=== PATIENT | male | born 1940 | race Caucasian/White ===

== ENCOUNTER 2018-04-22 14:18 | Inpatient (IN) | payer MEDICARE ==
[2018-04-22 15:30] LABS: ABS Basophils 0 10^3/ul (0-0.2); ABS Eosinophils 0 10^3/ul (0-0.6); ABS Lymphocytes 0.6 10^3/ul (1.0-4.8); ABS Monocytes 0.8 10^3/ul (0-0.8); ABS Neutrophils 4.8 10^3/ul (1.5-7.7); ABS Nucleated RBC 0 10^3/ul; Eosinophil % 0 % (0-6); Hematocrit 38 % (42-52); Hemoglobin 13.4 g/dl (14.0-18.0); Mean Corpuscular HGB Conc 35 g/dl (31-36); Mean Corpuscular Hemoglobin 30 pg (27-31); Mean Corpuscular Volume 85 fL (80-94); Mean Platelet Volume 6.8 um3 (7.4-10.4); Nucleated Red Blood Cells % 0.1; Platelet Count 204 10^3/ul (150-450); Red Cell Distribution Width 14 % (10.5-15); White Blood Count 6.2 10^3/ul (3.5-10.8)
[2018-04-22] MEDS: Hydrocortisone INJ* 100 MG VIAL IV SCH ×2 (16:04→22:09)
[2018-04-22] MEDS: Fludrocortisone Acetate TAB* 0.1 MG PO SCH (16:04)
[2018-04-22] MEDS: HYDROcodone/ACETAMIN 5-325 MG* 1 TAB PO PRN ×2 (16:04→22:11)
[2018-04-22 16:27] LABS: EGFR Non-African American 103.9 (>60)
[2018-04-22] MEDS ORDERED: NS 0.9% 1000 ML* 1,000 ML IV SCH (16:55)
--- NOTE | 2018-04-22 19:35 | CONS ---
CONSULTATION REPORT: DATE OF CONSULT: 04/22/18 REQUESTING PHYSICIAN: Dr. Bolton. INDICATION: Request for EGD, weight loss, loss of appetite. NARRATIVE: Mr. Tong is a 77-year-old gentleman with a history of psoriasis , chronic fatigue, adrenal insufficiency, pleurodynia, chronic back pain, umbilical hernia, BPH, peripheral vascular disease, ankylosing spondylitis, polymyalgia rheumatica, osteoporosis, Raynaud's, glaucoma, who was sent in by his primary care physician, Dr. Bolton because of syncope. The patient states that he has passed out in the shower twice. The patient also states that she wanted him to have an endoscopy to evaluate his weight loss and his loss of appetite. He states for the past 3 weeks, he has had very little appetite. He is eating much less than he ever has in the past. He denies any pain before or after eating. He does have slight discomfort in the right upper quadrant, but had a recent abdominopelvic CT, which showed cholelithiasis, but no cholecystitis, but he says that he really does not have much pain. He denies any change in his bowel habits, except he does have loose stools, but not diarrhea. No constipation. No blood in the stool. He thinks he has lost approximately 10 pounds. He denies any new medications other than Humira approximately 3 weeks ago. He does take aspirin on a daily basis. PAST SURGICAL HISTORY: Include orthopedic surgeries. MEDICATIONS: Upon admission include: 1. Humira. 2. Trental. 3. Loratadine. 4. Prednisone 7 mg today. 5. Finasteride 5 mg a day. 6. Actonel. 7. Caltrate. 8. Baby aspirin. 9. Multivitamin. 10. Pantoprazole. ALLERGIES: CELEBREX, FOSAMAX, AZATHIOPRINE, LOTENSIN, CLINDAMYCIN, GLUCOSAMINE , HYDROCHLOROTHIAZIDE, METHOTREXATE. FAMILY HISTORY: No IBD, no colorectal cancer in the family. REVIEW OF SYSTEMS: Twelve systems were reviewed; other than that mentioned in the HPI were unremarkable. PHYSICAL EXAM: Temperature is 97.3, blood pressure is 143/71, pulse is 59, respiratory rate of 18, O2 sat is 98%. General: Chronically ill-appearing, elderly male, lying flat in bed, getting blood work. HEENT: Mucous membranes are moist without lesions, ulcers, or exudate. Neck is supple. Trachea is midline. Dentition intact. Heart: Regular rate and rhythm. Lungs: Clear to auscultation. Abdomen: Positive bowel sounds. Soft, nontender, nondistended. No hepatosplenomegaly, masses, rebound, or guarding. Skin is warm and dry. He does have typical psoriatic plaques all over his skin. DIAGNOSTIC STUDIES/LAB DATA: Labs at this point are pending; however, the patient tells me that he has had recent blood work with Dr. Bolton and was told that it was all normal. He does have a CT abdomen and pelvis from 04/15/18, which shows gallstones and a periumbilical hernia. ASSESSMENT AND PLAN: This is a 77-year-old gentleman with weight loss and no appetite, whose primary care doctor, Dr. Bolton, has requested endoscopy for further workup. I had a long discussion with the patient regarding this. We discussed potentially finding peptic ulcer disease, H. pylori, celiac disease, and/or malignancy. We will plan for his endoscopy tomorrow. He can have a diet tonight, but NPO after midnight for EGD tomorrow. [id number]/[facility] #: [id number] [facility] STATE HOSPITALFelipe
[2018-04-22] MEDS: Pentoxifylline CR TAB* 400 MG PO SCH (20:38)
[2018-04-22] MEDS: Tamsulosin CAP* 0.4 MG PO SCH (20:39)
[2018-04-22] MEDS: Latanoprost 0.005%* 2.5 ml BTL BOTH EYES SCH (20:39)
--- NOTE | 2018-04-23 01:06 | HP ---
HISTORY AND PHYSICAL: DATE OF ADMISSION: 04/22/18 HISTORY OF PRESENT ILLNESS: John Tong is a 77-year-old man admitted with weakness and syncopal episode. The patient has not been feeling well recently. He has developed a severe rash, diagnosed as psoriasis and was recently started on Humira. Since that time, he has gotten progressively weaker. He has had 2 syncopal episodes in the last few days, 1 on Sunday, 04/19, when he was sitting at the table. Today, he had a syncopal episode in the shower. He started to feel that he was going to faint, sat on the bench in the shower. When he stood up again, he thought he was feeling better, but then went down. It took his about a half an hour to get him out of the shower. They presented to my office and he is being admitted at this time. PAST MEDICAL HISTORY: Significant for the following medical problems: 1. History of hypertension, no longer present. 2. History of hyponatremia. 3. Glaucoma. 4. Adrenal insufficiency secondary to chronic steroid use. 5. 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 6. Benign prostatic hypertrophy for which he is on tamsulosin. 7. Peripheral vascular disease. 8. History of incomplete right bundle-branch block. 9. Recent CT of the chest showing right apical pleural calcification and plaque felt to be likely chronic in nature. 10. Periumbilical hernia. 11. Contracted gallbladder with gallstones, on recent CT. 12. Recent weight loss. 13. Osteoporosis. PAST SURGICAL HISTORY: Includes: 1. Tonsillectomy in childhood. 2. Left hydrocele repair. 3. Left lateral elbow release in 1979. 4. Left rotator cuff repair in 1999. 5. Bilateral cataract extractions in 2010. 6. Right rotator cuff repair in 2010. 7. He also underwent an interlaminar epidural steroid injection, L4-5 in 2013. CURRENT MEDICATIONS: 1. Clobetasol 0.05% topical cream. 2. Risedronate 35 mg weekly. 3. Tamsulosin 0.4 mg twice daily. 4. Prednisone 7 mg daily. 5. Finasteride 5 mg daily. 6. Pantoprazole 40 mg daily. 7. Albuterol 2 puffs as needed for shortness of breath. 8. Tylenol extended release 650 mg twice a day as needed for pain. 9. Pentoxifylline extended release 400 mg 3 times a day. 10. Humira 40 mg every other week. 11. Hydrocodone 5/325 p.r.n. pain. 12. Aspirin 81 mg daily. 13. Calcium 1 every day plus D. 14. Multivitamin 1 every day. 15. Travatan Z 0.004% 1 drop both eyes every evening. 16. Loratadine 10 mg every day. ALLERGIES: To SULFA, which caused a rash; CLINDAMYCIN caused a rash; CILOSTAZOL caused pounding heart beat; HYDROXYCHLOROQUINE caused diarrhea; METHOTREXATE caused mouth ulcers; AZATHIOPRINE caused nausea, vomiting, diarrhea ; LOTENSIN caused a cough; DYAZIDE caused a rash; GLUCOSAMINE SULFATE; FOSAMAX; CELEBREX. HABITS: Smoked from age 16 to 27, less than 1 pack a day. EtOH: Two beers a day in the past. FAMILY HISTORY: Mother of old age. Father had CABG and of a stroke. SOCIAL AND PERSONAL HISTORY: The patient is retired. He lives with his in their own home. He has adult children. REVIEW OF SYSTEMS: He has been feeling very weak. He has not been feeling well. He generally had been walking, but has not been walking recently. Skin: He has extensive rash diagnosed as psoriasis. This may have gotten a little bit better since he started Humira. HEENT: Negative. Nodes: Negative. Heme : Negative. Endocrine: See above. Respiratory: Negative. Cardiovascular: See above. GI: See above. He has had anorexia. : See above. Musculoskeletal: See above. Neuro: See above. PHYSICAL EXAMINATION GENERAL: He is an elderly white male, looking fatigued, in no acute distress. VITAL SIGNS: Blood pressure 140/70 sitting, 108/70 standing, pulse 64, respirations 16, temperature 97.3, O2 sat 98%. HEENT: Head: Atraumatic, normocephalic. Full EOMs. Mouth and pharynx: Unremarkable. NECK: Supple. Without thyromegaly. Nodes without adenopathy. CHEST: Clear bilaterally to auscultation. HEART: Normal S1, S2. No murmurs, gallops, or rubs. ABDOMEN: Soft, nontender. He has an umbilical hernia. EXTREMITIES: Show no clubbing, cyanosis, or edema. NEUROLOGIC: Without gross focal or lateralizing signs. SKIN: Covered with erythematous patches with scaling over his trunk and limbs. LABORATORY DATA: Pending. IMPRESSION AND PLAN: The patient has recent fatigue, weakness, anorexia, nausea without vomiting, weight loss. This may or may not be related to Humira. I doubt that it is. He has had syncopal episodes, which are likely related to orthostatic hypotension. This may be the stress of his rash and treatment that is causing him to have adrenal insufficiency and that may be the reason he is so weak. I am going to admit him, give him stress doses of steroids, and fludrocortisone. EGD will be ordered. I am going to review his films with Radiology to see whether the pleural thickening could possibly be cancer, although I doubt it is. He may be a candidate for PET scan. He is a full code at this point. [id number]/[facility] #: [id number] MTDD
[2018-04-23] MEDS: Hydrocortisone INJ* 100 MG VIAL IV SCH ×4 (03:56→21:24)
[2018-04-23] MEDS: HYDROcodone/ACETAMIN 5-325 MG* 1 TAB PO PRN ×2 (03:56→21:23)
[2018-04-23] MEDS: Pentoxifylline CR TAB* 400 MG PO SCH ×3 (11:34→21:24)
[2018-04-23] MEDS ORDERED: Midazolam* 1 MG/ML 10 ML VIAL (10 MG) ONE (14:42)
[2018-04-23] MEDS ORDERED: fentaNYL* 50 MCG/ML 2 ML VIAL (100 MCG VIAL) ONE (14:43)
[2018-04-23] MEDS: Omeprazole CAP* 20 MG PO SCH (16:19)
[2018-04-23] MEDS: Finasteride TAB* 5 MG PO SCH (16:19)
[2018-04-23] MEDS: Tamsulosin CAP* 0.4 MG PO SCH ×2 (16:19→21:23)
[2018-04-23] MEDS: Cetirizine* 10 MG TAB PO SCH (16:19)
[2018-04-23] MEDS: Fludrocortisone Acetate TAB* 0.1 MG PO SCH (16:20)
[2018-04-23] MEDS: Aspirin 81 mg CHEW TAB* 81 MG TAB.CHEW PO SCH (16:20)
[2018-04-23] MEDS ORDERED: Fluconazole 100 MG TAB* TAB PO ONE (19:00)
[2018-04-23] MEDS: Latanoprost 0.005%* 2.5 ml BTL BOTH EYES SCH (21:22)
[2018-04-24] MEDS: Hydrocortisone INJ* 100 MG VIAL IV SCH ×4 (03:43→20:30)
[2018-04-24 06:23] LABS: Hematocrit 34 % (42-52); Hemoglobin 12.2 g/dl (14.0-18.0); Mean Corpuscular HGB Conc 36 g/dl (31-36); Mean Corpuscular Hemoglobin 30 pg (27-31); Mean Corpuscular Volume 85 fL (80-94); Mean Platelet Volume 6.9 um3 (7.4-10.4); Platelet Count 192 10^3/ul (150-450); Red Blood Count 4.05 10^6/ul (4.00-5.40); Red Cell Distribution Width 14 % (10.5-15); White Blood Count 8.7 10^3/ul (3.5-10.8)
[2018-04-24 06:46] LABS: EGFR Non-African American 135.5 (>60)
[2018-04-24] MEDS: Omeprazole CAP* 20 MG PO SCH (07:19)
[2018-04-24] MEDS: Fluconazole 100 MG TAB* TAB PO SCH (08:40)
[2018-04-24] MEDS: Finasteride TAB* 5 MG PO SCH (08:40)
[2018-04-24] MEDS: Tamsulosin CAP* 0.4 MG PO SCH ×2 (08:40→20:28)
[2018-04-24] MEDS: Aspirin 81 mg CHEW TAB* 81 MG TAB.CHEW PO SCH (08:40)
[2018-04-24] MEDS: Pentoxifylline CR TAB* 400 MG PO SCH ×3 (08:40→20:29)
[2018-04-24] MEDS: Fludrocortisone Acetate TAB* 0.1 MG PO SCH (08:41)
[2018-04-24] MEDS: HYDROcodone/ACETAMIN 5-325 MG* 1 TAB PO PRN ×2 (08:41→20:29)
[2018-04-24] MEDS: Cetirizine* 10 MG TAB PO SCH (08:41)
--- NOTE | 2018-04-24 12:12 | PRO ---
DATE: 04/23/18 - ROOM #[id number] REFERRING PHYSICIAN: Dr. May Castillo.* PROCEDURE: Upper gastrointestinal endoscopy and balloon dilation, EG junction stricture at 40 cm, CLOtest gastric body, gastric body biopsies, biopsy smooth nodule proximal second portion of duodenum. INDICATION: This 77-year-old male states he has had a poor appetite for 3 weeks. He complains of early satiety. There has not been any vomiting or fever. His bowels have been a little loose, but he denies seeing any blood. He has a history of skin rash that began in the spring and carries a diagnosis of psoriasis. He was on Humira beginning 3 weeks ago. He was admitted after fainting in the shower yesterday morning. He has a long-standing history of rheumatoid arthritis with spondylitis and had been on methotrexate in the past. He has never had this test before. ENDOSCOPIST: Dr. Baird. MEDICATIONS: Midazolam 8, fentanyl 100. FINDINGS: He is an older man, in no overt distress, although speaks softly and appears depressed. His affect appears flat. EGD: Larynx - some minimal Monilia is seen. Larynx is symmetric. Esophagus - easily entered and the mucosa is normal at the cricopharyngeus and upper esophagus and then some mild Monilia begins at about 27 cm and becomes more prevalent and is moderate and then moderately severe in the distal esophagus from about 38 to 40. The scope could not pass; there appeared to be a stenosis. A [id number] dilator was then inserted and inflated to 1 atmosphere and then 2 atmospheres corresponding to 13 and then 14 mm. The stricture was then opened up with some minor splits. The scope passed easily. Given the heavy Monilia there, further dilation seemed unwarranted. Stomach - there was a moderate hiatal hernia. The gastric mucosa appeared uninflamed. There were no erosions seen. A CLOtest was taken. Two biopsies were taken from the gastric fundus to rule out atrophy. The gastric antrum appeared normal. There were no polyps or scars. Duodenum - the pylorus and bulb appeared normal. The second and third portion appeared normal initially. During slow withdrawal, a nodule was seen in the proximal second portion. It was smooth with central umbilication. It was uninflamed with no exudates or vascular coloration. Two biopsies were taken. IMPRESSION: 1. Moderate hiatal hernia. 2. Gastroesophageal reflux - he has been on pantoprazole for over a year. It appears this should be continued as the stricture is probably a combination of peptic and Monilial inflammation and edema. 3. Esophageal stricture - dilated to 14 mm and further dilation can be contemplated once the Monilia is treated. 4. Esophageal candidiasis - would probably give Diflucan for a week and then periodic suppressive regimen of either Diflucan or clotrimazole troches. It seems likely he has ongoing risk factors for Monilia; we will continue unabated namely pantoprazole, prednisone, and some other immunomodulator biologic. 5. Duodenal nodule - appears benign, significance is uncertain and biopsy pending. 6. Anorexia - certainly a Monilia with underlying gastroesophageal reflux disease could explain this, though psychological component probably plays an additional roll. 7. Atypical psoriasis - further assessment pending. [id number]/[facility] #: [id number] MTDD
[2018-04-24] MEDS: Latanoprost 0.005%* 2.5 ml BTL BOTH EYES SCH (20:28)
[2018-04-25] MEDS: Hydrocortisone INJ* 100 MG VIAL IV SCH ×2 (03:56→09:33)
[2018-04-25] MEDS: Tamsulosin CAP* 0.4 MG PO SCH (08:21)
[2018-04-25] MEDS: Aspirin 81 mg CHEW TAB* 81 MG TAB.CHEW PO SCH (08:22)
[2018-04-25] MEDS: Omeprazole CAP* 20 MG PO SCH (08:22)
[2018-04-25] MEDS: Fludrocortisone Acetate TAB* 0.1 MG PO SCH (08:22)
[2018-04-25] MEDS: Cetirizine* 10 MG TAB PO SCH (08:23)
[2018-04-25] MEDS: Fluconazole 100 MG TAB* TAB PO SCH (08:24)
[2018-04-25] MEDS: Finasteride TAB* 5 MG PO SCH (08:24)
[2018-04-25] MEDS: Pentoxifylline CR TAB* 400 MG PO SCH (08:24)
[2018-04-25 11:29] VITALS: BP 127/81
--- NOTE | 2018-04-25 21:56 | DS ---
DISCHARGE SUMMARY: DATE OF ADMISSION: 04/22/18 DATE OF DISCHARGE: 04/25/18 DISCHARGE DIAGNOSES: 1. Syncope due to orthostatic hypotension. 2. Adrenal insufficiency. 3. Rash due to tinea, possibly underlying psoriasis. 4. Benign prostatic hypertrophy. 5. Osteoporosis. 6. Peripheral vascular disease. 7. History of hypertension, no longer active diagnosis. 8. Yesica esophagitis. 9. Esophageal stricture. 10. Gastroesophageal reflux. 11. Hyponatremia. 12. Glaucoma. 13. History of polymyalgia rheumatica versus seronegative spondyloarthropathy. 14. History of incomplete right bundle-branch block. 15. Apical pleural calcification and plaque, chronic. 16. Periumbilical hernia. 17. Contracted gallbladder with gallstones. 18. Recent weight loss. 19. Anemia of chronic disease. HISTORY: John Tong is a 77-year-old man admitted with weakness and syncopal episode. Please see the dictated admission note for details of the present illness, past medical history, family history, social and personal history, review of systems, and physical examination. LABORATORY: CBC: WBC 6.2, H and H 13.4/38, MCV 85, PLT 204,000. CBC on : WBC 8.7, H and H 12.2/34, MCV 85, PLT 192. Chemistry: Sodium 127, potassium 3.8, chloride 97, CO2 21, BUN and creatinine 13/0.73, glucose 108. Rest of the comprehensive metabolic panel was normal. TSH normal at 0.91. 25- hydroxyvitamin D level 50.9. Magnesium slightly low at 1.8. Phosphorus normal at 3. Serum osmolality 286. Chemistries on 04/24/18: (BMP) sodium 130, potassium 3.5, chloride 104, CO2 21, BUN and creatinine 12/0.58, glucose 143, calcium 7.8. Urine sodium 36. Urine osmolality 520. Urine culture no growth. CLOtest negative. CONSULTATION NOTE: Gastroenterology, Dr. Geiger, he felt that the patient had weight loss, anorexia. Recommended EGD. Procedure report: EGD, Dr. Baird, 04/23/18, found moderate hiatus hernia, gastroesophageal reflux, recommended continuing pantoprazole, esophageal stricture dilated to 14 mm, esophageal candidiasis, duodenal nodule. Stomach biopsy was negative. Small bowel biopsy showed small bowel mucosa with prominent Stephanie's gland with mild blunting of villi and overlying mucosa with vascular ectasia, nonspecific findings from a solitary nodule. Skin biopsy, right upper arm, shows subacute spongiotic dermatitis with occasional yeast clusters of stratum corneum. No psoriasiform findings noted. HOSPITAL COURSE: The patient was admitted, placed on telemetry, orthostatic blood pressures checked. He was given a stress doses of steroids, 50 mg of hydrocortisone every 6 hours. Workup was done as noted above. He was clinically improved. His blood pressures came up. He was noted initially to have orthostatic changes. No arrhythmias were noted. He was started on fluconazole for the Yesica esophagitis, which will also treat the tinea. He felt much better at the time of dischsarge. He was eating well. He was no longer dizzy. He is being discharged on 04/25/18. At the time of discharge his medications are as follows: 1. Pentoxifylline 400 mg 3 times a day. 2. Tamsulosin 0.4 mg twice a day. 3. Fluconazole 200 mg once a day for 3 weeks and 200 mg once a week for 3 weeks. 4. Prednisone 5 mg 3 times a day for now. 5. Risedronate 75 mg once a week. 6. Loratadine 10 mg once a day or as needed for allergies. 7. Travatan Z 0.004% eye drops 1 drop each eye each evening. 8. Aspirin 81 mg daily. 9. Acetaminophen 650 two twice a day as needed for pain. 10. Finasteride 5 mg once a day. 11. Pantoprazole 40 mg once a day. He was told not to take Humira for now. He is to follow up in my office in about 5 to 7 days. Pending at the time of discharge are an IgA level, quantitative immunoglobulins, and a tTG antibody. [id number]/[facility] #: [id number] [facility]
== END 2018-04-25 12:15 | disposition home or self-care (01) | DRG 312 ==
LOC: MEDTELE 14:21 → OBSVTOIN 04-23 09:54
PROVIDERS: ADMIT Internal Medicine Geriatric Medicine; ATTEND Internal Medicine Geriatric Medicine
PROC: 0D748ZZ Dilation of Esophagogastric Junction, Via Natural or Artificial Opening Endoscopic (ICD-10-PCS; principal; 2018-04-23)
PROC: 0DB68ZX Excision of Stomach, Via Natural or Artificial Opening Endoscopic, Diagnostic (ICD-10-PCS; 2018-04-23)
PROC: 0DB98ZX Excision of Duodenum, Via Natural or Artificial Opening Endoscopic, Diagnostic (ICD-10-PCS; 2018-04-23)
PROC: 0HBBXZX Excision of Right Upper Arm Skin, External Approach, Diagnostic (ICD-10-PCS; 2018-04-23)
DX: I95.1 Orthostatic hypotension (principal); E27.3 Drug-induced adrenocortical insufficiency; B37.81 Candidal esophagitis; E87.1 Hypo-osmolality and hyponatremia; J94.8 Other specified pleural conditions; L40.9 Psoriasis, unspecified; I10 Essential (primary) hypertension; H40.9 Unspecified glaucoma; T38.0X5A Adverse effect of glucocorticoids and synthetic analogues, initial encounter; N40.0 Benign prostatic hyperplasia without lower urinary tract symptoms; I73.9 Peripheral vascular disease, unspecified; I45.10 Unspecified right bundle-branch block; K80.20 Calculus of gallbladder without cholecystitis without obstruction; M81.0 Age-related osteoporosis without current pathological fracture; R63.4 Abnormal weight loss; G89.29 Other chronic pain; M54.9 Dorsalgia, unspecified; M45.9 Ankylosing spondylitis of unspecified sites in spine; I73.00 Raynaud's syndrome without gangrene; K22.2 Esophageal obstruction; M06.9 Rheumatoid arthritis, unspecified; M35.3 Polymyalgia rheumatica; K44.9 Diaphragmatic hernia without obstruction or gangrene; K21.9 Gastro-esophageal reflux disease without esophagitis; R63.0 Anorexia; L40.8 Other psoriasis; K31.89 Other diseases of stomach and duodenum; L30.8 Other specified dermatitis; B35.9 Dermatophytosis, unspecified; K42.9 Umbilical hernia without obstruction or gangrene; D63.8 Anemia in other chronic diseases classified elsewhere; B37.2 Candidiasis of skin and nail; Z79.82 Long term (current) use of aspirin; Z79.52 Long term (current) use of systemic steroids; Z68.22 Body mass index [BMI] 22.0-22.9, adult; Z98.42 Cataract extraction status, left eye; Z98.41 Cataract extraction status, right eye; Z88.1 Allergy status to other antibiotic agents; Z88.2 Allergy status to sulfonamides; Z88.8 Allergy status to other drugs, medicaments and biological substances; Z82.3 Family history of stroke; Z82.49 Family history of ischemic heart disease and other diseases of the circulatory system
CPT/HCPCS: 11100; 36415; 80048; 80053; 82306; 82784; 82943; 83516; 83735; 83930; 83935; 84100; 84300; 84443; 85025; 85027; 87077; 87086; 87101; 88305; 99156; 99157; A9270-GY; G0378; J1720; J2250; J3010

== ENCOUNTER 2018-05-19 09:13 | Emergency (ER) | payer MEDICARE ==
[2018-05-19 09:27] VITALS: BP 132/75
--- NOTE | 2018-05-19 10:05 | UC ---
Shoulder Pain HPI - HPI Summary HPI Summary: 77 y/o male presents to the urgent care accompany by c/o RT shoulder pain s /p slipping and falling against a wall and injuring his left shoulder at a store on 05/13/2018. Pt reports he was using his walker. He felt mild pain after injury, but the next day he was very sore and uneble to raise his arm and now he has a big bruise in the RT side of his chest. Pain is 8/10 sharp w/ raising his arm. Pt has taking Tylenol PO to alleviates symptoms. Pt states he was hospitalized about 2 weeks ago by a esophageal fungal infection which he is now better. Pt w/ Hx of Osteoporosis taking Actonel PO and also take an ASA. Pt denies numbness or tingling sensation over the RT arm, chest pain, SOB, abdominal pain, N/V/D. - History of Current Complaint Chief Complaint: UCUpperExtremity Stated Complaint: SHOULDER INJURY Time Seen by Provider: 05/19/18 09:59 Hx Obtained From: Patient Onset/Duration: Lasting Weeks - 1 week, Still Present, Worse Since - 2 days ago Timing: Constant Severity Initially: Mild Severity Currently: Moderate Location Of Pain: Is Discrete @ - RT shoulder Pain Intensity: 8 - w/ movement and 3/10 at rest Pain Scale Used: 0-10 Numeric Character: Sharp Aggravating Factor(s): Movement, Lifting, Abduction Alleviating Factor(s): Rest, Ice, OTC Meds Associated Signs And Symptoms: Positive: Bruising - RT side of chest. Negative : Swelling, Redness, Fever, Weakness, Numbness/Tingling Related History: Dominant Hand Right - Risk Factors Non-Orthopedic Risk Factor: Negative DVT Risk Factors: Negative Septic Arthritis Risk Factor: Negative - Allergies/Home Medications Allergies/Adverse Reactions: Allergies Allergy/AdvReac Type Severity Reaction Status Date / Time alendronate sodium Allergy Unknown Verified 05/19/18 09:28 Reaction Details azathioprine Allergy Unknown Verified 05/19/18 09:28 Reaction Details benazepril [From Lotensin] Allergy Unknown Verified 05/19/18 09:28 Reaction Details celecoxib Allergy Hives Verified 05/19/18 09:28 cilostazol Allergy Unknown Verified 05/19/18 09:28 Reaction Details clindamycin Allergy Unknown Verified 05/19/18 09:28 Reaction Details glucosamine Allergy Unknown Verified 05/19/18 09:28 Reaction Details hydrochlorothiazide Allergy Unknown Verified 05/19/18 09:28 [From Dyazide] Reaction Details hydroxychloroquine Allergy Unknown Verified 05/19/18 09:28 Reaction Details methotrexate Allergy See Comment Verified 05/19/18 09:28 triamterene [From Dyazide] Allergy Unknown Verified 05/19/18 09:28 Reaction Details Home Medications: Home Medications Fluconazole [Fluconazole 200 mg tab] 1 dose PO WEEKLY 05/19/18 [History Confirmed 05/19/18] predniSONE TAB* [Deltasone 10 MG TAB*] 14 mg PO DAILY 05/19/18 [History Confirmed 05/19/18] PMH/Surg Hx/FS Hx/Imm Hx Previously Healthy: Yes Other Endocrine History: Osteoporosis Cardiovascular History: Hypertension GI/ History: Gastroesophageal Reflux Other GI/ History: esophageal candidiasis Other Psychological History: BPH - Surgical History Surgical History: Yes Surgery Procedure, Year, and Place: rotator cuff repair bilat; varicele 20YRS + ; CATARACTS BILAT. Torn ligament in left elbow- over 20yrs ago - Family History Known Family History: Positive: Cardiac Disease - Social History Occupation: Retired Lives: With Family Alcohol Use: None Alcohol Amount: 1-2 day,now has cut back. Substance Use Type: None Smoking Status (MU): Former Smoker Type: Cigarettes Amount Used/How Often: 1-2 packs in week Have You Smoked in the Last Year: No - Immunization History Most Recent Influenza Vaccination: last season Most Recent Tetanus Shot: 04/03/16 Most Recent Pneumonia Vaccination: has had Review of Systems Constitutional: Negative Skin: Bruising - RT side of chest Eyes: Negative ENT: Negative Respiratory: Negative Cardiovascular: Negative Gastrointestinal: Negative Genitourinary: Negative Motor: Negative Neurovascular: Negative Musculoskeletal: Decreased ROM - RT shoulder, Other: - RT shoulder pain Neurological: Negative Psychological: Negative Is Patient Immunocompromised?: No All Other Systems Reviewed And Are Negative: Yes Physical Exam - Summary Physical Exam Summary: Vital Signs Reviewed: Yes GENERAL: Well-Appearing, No Pain Distress, Well-Nourished old male w/o any apparent pain distress Eyes: Positive: Conjunctiva Clear - PERRL,EOMI ENT: Positive: Normal ENT inspection, Hearing grossly normal, Pharyngeal erythema - mild, Nasal drainage - clear, Uvula midline Neck: Positive: Supple, Nontender, No Lymphadenopathy Respiratory: Positive: Chest non-tender, Lungs clear, Normal breath sounds, No respiratory distress Cardiovascular: Positive: RRR, No Murmur, Pulses Normal, Brisk Capillary Refill Abdomen Description: Positive: Nontender, No Organomegaly, Soft. Negative: CVA Tenderness (R), CVA Tenderness (L) Bowel Sounds: Positive: Present Musculoskeletal: RT shoulder: The R shoulder is without obvious asymmetry or deformity when compared to the L shoulder. R shoulder w/o ecchymosis and bruising, no crepitus. No bony deformity or prominence of humeral head. No erythema, warmth. No Point Tenderness to palpation over the clavicle, or scapula. positive tenderness over Acromioclavicular joint and humeral head with mild swelling, NT to palpation of the bicipital groove . NT to palpation of the muscles of the sternocleidomastoid, pectoralis, biceps/triceps, deltoid, trapezius, . Limited ROM due to pain especially in adduction and abduction.on both passive and active, internal/external rotation, flexion/extension. "empty can and drop arm test unable to perform due to pain. No axillary tenderness or lymphadenopathy. Normal sensation over the deltoid and fingers. Distal motor and neurovascular status is intact. Neurological Exam: Normal Psychological Exam: Normal Skin Exam: RT side of chest w/ moderate bruise and ecchymosis between RT side Ribs #3-7 about 6.0cm x 8.0cm in size. Mild tenderness to palpation, no swelling observed. Triage Information Reviewed: Yes Vital Signs: Initial Vital Signs Temp 99.0 F 05/19/18 09:24 Pulse 67 05/19/18 09:24 Resp 18 05/19/18 09:24 BP 132/75 05/19/18 09:24 Pulse Ox 98 05/19/18 09:24 Shoulder Course/Dx - Course Course Of Treatment: 77 y/o male presents to the urgent care accompany by c /o RT shoulder pain s/p slipping and falling againts a wall and injuring his left shoulder at a store on 05/13/2018. Pt reports he was using his walker. He felt mild pain after injury, but the next day he was very sore and uneble to raise his arm and now he has a big bruise in the RT side of his chest. Pain is 8 /10 sharp w/ raising his arm. Pt has taking Tylenol PO to alleviates symptoms. Pt states he was hospitalized about 2 weeks ago by a esophageal fungal infection which he is now better. Pt w/ Hx of Osteoporosis taking Actonel PO and also take an ASA. Pt denies numbness or tingling sensation over the RT arm, chest pain, SOB, abdominal pain, N/V/D.Hx obtained. Pt w/ a severe moderate Hematoma in the RT side of chest. RT shoulder and RT side Ribs and chest X-ray ordered: Impression:RT shoulder osteopenis, osteoarthritis observed, but no fracture or dislocation. Also no rib fracture obserd. Only a Rt apical Pleural calcification observed and as per radiologits it is still the same as compared w / CT done in 2016. Images results discussed w/ Pt. He is awared of the pleural calcification which is being monitored by his PCP. Pt's Rx Tylenol PO for pain. Shoulder immobilized with a shoulder sling for 3-4 days. Advised to f/u with PT referral for further evaluation and Orthopedic DR Lewis referral if not improvement of symptoms. D/C instructions explained. Pt and understood and agreed w/ plan of care and left clinic hemodynamically stable. - Differential Dx/Diagnosis Differential Diagnosis/HQI/PQRI: AC Separation, Contusion, Fracture (Closed), Sprain, Strain, Tendonitis Provider Diagnoses: 1- RT shoulder sprain s/p fall. 2- RT shoulder oateoarthritis. 3- Chest contusion w/ hematoma Discharge - Sign-Out/Discharge Documenting (check all that apply): Patient Departure - D/C home All imaging exams completed and their final reports reviewed: Yes - Discharge Plan Condition: Stable Disposition: HOME Prescriptions: Acetaminophen TAB* [Tylenol TAB*] 650 mg PO Q6H PRN #30 tab PRN Reason: Pain Patient Education Materials: Osteoarthritis (ED), Shoulder Sprain (ED), Hematoma (ED) Referrals: May Castillo MD [Primary Care Provider] - 3 Days Eladia Lewis MD [Medical Doctor] - 3 Days Additional Instructions: 1-Please take medications as directed to alleviate pain and swelling. 2-Please apply ice, keep your shoulder immobilized with the shoulder sling for 3 -4 days and then resume movement slowly 3- Please f/u with Orthopedic Dr Lewis 3 days for further evaluation and treatment. 4- Please F/I Physical therapy referral for further evaluation and treatment. - Billing Disposition and Condition Condition: STABLE Disposition: Home
[2018-05-19] MEDS ORDERED: Acetaminophen TAB* 325 MG PO ONE (10:20)
--- NOTE | 2018-05-19 11:06 | RAD ---
HISTORY: RT shoulder pain s/p injury COMPARISONS: None VIEWS: 5, Frontal internal rotation, external rotation, outlet, and axillary views of the right right shoulder FINDINGS: BONE DENSITY: There is diffuse osteopenia. BONES: There is no displaced fracture. JOINTS: There is moderate osteoarthritis of the a.c. and glenohumeral joints. ALIGNMENT: There is no dislocation. SOFT TISSUES: Unremarkable. OTHER FINDINGS: There is right apical pleural calcification. IMPRESSION: 1. OSTEOPENIA. 2. OSTEOARTHRITIS. 3. NO ACUTE OSSEOUS INJURY. IF SYMPTOMS PERSIST, RECOMMEND REPEAT IMAGING.
--- NOTE | 2018-05-19 11:08 | RAD ---
HISTORY: RT side upper ribs w/ hematoma s/p fall COMPARISONS: CT dated April 15, 2013 VIEWS: 7, Frontal view of the chest with frontal and oblique views of the right hemithorax. FINDINGS: There is no displaced rib fracture or pneumothorax. There is right greater than left biapical pleural thickening and calcification. This is stable from the previous CT examination. IMPRESSION: NO DISPLACED RIB FRACTURE OR PNEUMOTHORAX
== END 2018-05-19 11:35 | disposition home or self-care (01) ==
LOC: UCEAST 09:13
DX: S43.401A Unspecified sprain of right shoulder joint, initial encounter (principal); W22.01XA Walked into wall, initial encounter; Y92.89 Other specified places as the place of occurrence of the external cause; M19.011 Primary osteoarthritis, right shoulder; S20.211A Contusion of right front wall of thorax, initial encounter
CPT/HCPCS: 99213; A9270-GY; G0463

== ENCOUNTER 2018-08-10 14:08 | Emergency (ER) | payer MEDICARE ==
--- OUTSIDE RECORDS SUMMARY | 2018-08-10 14:15 | XMS REPORT | Continuity of Care Document ---
:1940 External Reference #:[id number] Author Name Alexandre Contreras M.D. Address [address] [facility] [place] [address] Care Team Providers Name Role Phone May Castillo M.D. Primary Care Physician Unavailable Payers Type Date Identification Numbers Payment Provider Subscriber Effective: Policy Number: [id number] Medicare - NGS John Vazquezbinta 2004 PayID: [id number] [address] [place] [address] Policy Number: [id number] [facility] John Tong PayID: [id number] [address] [place] [address] Advance Directives Description No Information Available Problems Date Description Provider Status Onset: Allergic rhinitis Active Onset: Essential hypertension Active Onset: Ankylosing spondylitis Active Onset: Rheumatoid arthritis Active Onset: Raynaud's disease Active Onset: Benign prostatic hyperplasia Active Onset: 04/02/2015 Primary open angle glaucoma Alexandre Contreras M.D. Active Onset: 04/02/2015 Nonexudative age-related macular Alexandre Contrersa M.D. Active degeneration Onset: 04/02/2015 Moderate Glaucoma Alexandre Contreras M.D. Active Onset: 04/02/2015 Pseudophakia Alexandre Contreras M.D. Active Onset: 02/12/2016 Angular blepharoconjunctivitis Neela Epstein O.D. Active Onset: 08/01/2016 Bilateral primary open angle glaucoma Alexandre Contreras M.D. Active Onset: 01/30/2017 Bilateral primary open angle glaucoma Alexandre Contreras M.D. 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 Active Onset: 08/07/2017 Presence of intraocular lens Alexandre Contreras M.D. Active Onset: Invasive fungal infection Active Note: Skin Onset: Discoid lupus erythematosus Active Onset: Seizure disorder Active Note: Micro Seizures Onset: Infection of toe Active Onset: 08/08/2018 Taking medication Alexandre Contreras M.D. Active Onset: 08/08/2018 Systemic lupus erythematosus Alexandre Contreras M.D. Active Family History Date Family Member(s) Problem(s) Comments Father Cataract Mother Cataract Mother Glaucoma Social History Type Date Description Comments Sex Unknown Marital Status Legal Status: Occupation [employer] Work Status Retired ETOH Use Consumes 2-3 beers per day Tobacco Use Start: Unknown End: Patient is a former smoker Unknown Recreational Drug Use Denies Drug Use Smoking Status Reviewed: 08/08/18 Patient is a former smoker Allergies, Adverse Reactions, Alerts Date Description Reaction Status Severity Comments 04/02/2015 Celebrex Active 04/02/2015 Lotensin Active 04/02/2015 Methotrexate Active 04/02/2015 Azathioprine Active 04/02/2015 Dyazide Active 04/02/2015 Fosamax Active Medications Medication Date Status Form Strength Qnty SIG Indications Ordering Provider Hydroxychloroquin 08/08 Active Tablets 200mg 2 tabs Unknown e once a day Travatan Z 04/22 Active Solution 0.004% 2.500 instill 1 H40.11x1 Alexandre Sánchez /Sujatha ml drop in [place], both eyes M.D. every night Tamsulosin HCL Active Capsules 0.4mg Unknown /0000 Prednisone Active Tablets 5mg three /0000 times a day Ibuprofen Active Tablets 800mg Unknown /0000 Pentoxifylline ER Active Tablets ER 400mg Unknown /0000 Loratadine Active Unknown /0000 Aspirin Active Tablets 81mg Unknown / Multiple Vitamins Active Tablets Unknown / Finasteride Active Tablets 5mg Unknown / Risedronate Active Tablets 35mg Unknown Sodium / Caltrate 600+D Active Chewtabs 600-800mg Unknown Plus Minerals /0000 -Unit Centrum Silver Active Tablets Unknown / Pantoprazole Active Tablets DR 40mg Unknown Sodium Proair HFA Active Aerosol 108(90Bas Unknown e) mcg/Act Lid Scrubs Active once a day Unknown Artificial Tears Active Solution 0.1-0.3% as needed Unknown Levetiracetam Active Tablets 500mg Unknown / Hydrocodone-Aceta Active Tablets 5-325mg as needed Unknown minophen /0000 Pred Forte 06/16 Hx Suspension 1% 5ml One drop H40.11x1 Alexandre Sánchez /2015 three [place], - times a M.D. 06/23 day in the left eye for three days, then discontinu e. Erythromycin 02/11 Hx Ointment 5mg/GM 1Tube apply thin H10.522 Neela /2015 s strip to RickWesly Tete, - Left O.D. 03/15 margins every night at bedtime X 1 Month Dexamethasone 02/11 Hx Solution 0.1% 5ml 3X/Day H10.522 Neela Sodium Phosphate /2015 Left Eye X Mk Epstein, - 7 Days O.D. 03/15 Prednisolone 04/22 Hx Suspension 1% 5ml 1 drop 365.11 Alexandre Sánchez Acetate /2014 three [place], - times a M.D. 05/20 day in the right eye for three days after laser procedure Timolol Maleate 04/01 Hx GFS 0.5% 5ml 1 drop Alexandre Sánchez Ophthalmic Gel /2014 both eyes [place], Forming - every day M.D. 04/15 Travatan Z 04/01 Hx Solution 0.004% 5ml 1 drop Alexandre Sánchez /2014 both eyes [place], - every M.D. 04/15 night /2014 Timolol Maleate 02/09 Hx Solution 0.5% 15ml 1 drop Steven /2014 both eyes [place], - twice a M.D. Immunizations Description No Information Available Vital Signs Date Vital Result Comment 06/20/2016 2:53pm BP Systolic 120 mmHg BP Diastolic 47 mmHg Heart Rate 55 /min Respiratory Rate 16 /min Results Description No Information Available Procedures Date Code Description Status 02/04/2018 99046 Scanning Computerized Opthalmic Diagnostic Posterior Seg Completed Retina 02/04/2018 76723 Est Patient Intermediate Exam Completed 08/07/2017 60638 Scanning Computerized Opthalmic Diagnostic Posterior Seg Completed Retina 08/07/2017 01388 Visual Field Exam Extended Completed 08/07/2017 77093 Est Patient Comprehensive Exam Completed 07/05/2017 519 Eyeglass Painting Department Supervisor Completed 01/30/2017 29693 Est Patient Intermediate Exam Completed 08/01/2016 519 Eyeglass Painting Department Supervisor Completed 06/20/2016 16808 Trabeculoplasty By Laser Surgery Completed 06/16/2016 27062 Scanning Computerized Ophthalmic Diagnostic Imag Posterior Completed Seg On 06/16/2016 07246 Est Patient Intermediate Exam Completed 03/16/2016 94661 Visual Field Exam Extended Completed 03/16/2016 47743 Scanning Computerized Opthalmic Diagnostic Posterior Seg Completed Retina 02/12/2016 81908 Est Patient Intermediate Exam Completed 09/14/2015 77422 Est Patient Intermediate Exam Completed 09/14/2015 519 Eyeglass Painting Department Supervisor Completed 05/17/2015 53078 Trabeculoplasty By Laser Surgery Completed 05/10/2015 01298 Trabeculoplasty By Laser Surgery Completed 04/02/2015 81711 Scanning Computerized Ophthalmic Diagnostic Imag Posterior Completed Seg On 04/02/2015 62867 Visual Field Exam Extended Completed 04/02/2015 31621 Est Patient Comprehensive Exam Completed 04/02/2015 62770 Pachymetry Completed 09/01/2014 519 Eyeglass Painting Department Supervisor Completed 10/15/2013 519 Eyeglass Painting Department Supervisor Completed 02/27/2013 519 Eyeglass Painting Department Supervisor Completed 04/17/2012 519 Eyeglass Painting Department Supervisor Completed 06/29/2011 519 Eyeglass Painting Department Supervisor Completed 06/14/2011 78710 Extracapsular Cataract Extraction W/Intraocular Lens Completed 06/06/2011 48486 Ophthalmic Biometry Completed 06/06/2011 24229 Scanning Computerized Opthalmic Diagnostic Posterior Seg Completed Retina 05/24/2011 80477 Est Patient Intermediate Exam Completed 03/01/2011 69443 Remove Foreign Body Cornea W/Slit Lamp Completed 01/12/2011 19409 Visual Field Exam Extended Completed 01/12/2011 56449 Est Patient Intermediate Exam Completed 01/12/2011 519 Eyeglass Painting Department Supervisor Completed 09/02/2009 519 Eyeglass Painting Department Supervisor Completed 04/30/2009 21321 Est Patient Intermediate Exam Completed 04/30/2009 49358 Determination Of Refractive State Completed 11/24/2008 08830 Est Patient Intermediate Exam Completed 02/19/2008 48222 Extracapsular Cataract Extraction W/Intraocular Lens Completed 02/06/2008 66615 Ophthalmic Biometry Completed 01/16/2008 10954 Determination Of Refractive State Completed 01/16/2008 35200 Est Patient Comprehensive Exam Completed 01/03/2007 14375 Est Patient Comprehensive Exam Completed 08/01/2005 18626 Cancelled Appointment Completed 06/30/2005 12222 Determination Of Refractive State Completed 06/30/2005 09286 Est Patient Comprehensive Exam Completed 01/20/2005 84051 Visual Field Exam Extended Completed 01/21/2004 09959 Est Patient Intermediate Exam Completed Encounters Type Date Location Provider Dx Diagnosis Office Visit 08/01/2016 Alexandre Garcia, H40.1131 Primary 9:15a wilner LANDAVERDE M.D. open-angle glaucoma, bilateral, mild stage H35.3131 Nexdtve age-related mclr degn, bilateral, early dry stage Z96.1 Presence of intraocular lens Office Visit 06/15/2015 8:45a Alexandre Garcia 365.11 Primary Open wilner LANDAVERDE M.D. Angle Glaucoma 365.72 Moderate Glaucoma V43.1 Pseudophakia Office Visit 04/22/2015 9:15a Alexandre Garcia 365.11 Primary Open wilner LANDAVERDE M.D. Angle Glaucoma 365.72 Moderate Glaucoma Office Visit 09/01/2014 10:15a Steven Garcia 365.11 Primary Open wilner LANDAVERDE M.D. Angle Glaucoma 365.72 Moderate Glaucoma Office Visit 04/14/2014 10:00a Steven Garcia, 365.11 Primary Open wilner LANDAVERDE M.D. Angle Glaucoma 365.72 Moderate Glaucoma Office Visit 10/15/2013 9:00a Steven Garcia, 365.11 Primary Open , pc M.DWesly Angle Glaucoma 365.72 Moderate Glaucoma Office Visit 04/15/2013 9:45a Steven Garcia, 365.11 Primary Open , pc M.DWesly Angle Glaucoma 365.72 Moderate Glaucoma Office Visit 10/16/2012 9:45a Steven Garcia, 365.11 Primary Open , pc M.D. Angle Glaucoma 365.72 Moderate Glaucoma Office Visit 04/17/2012 9:30a Steven Garcia, 365.11 Primary Open , pc M.D. Angle Glaucoma 365.72 Moderate Glaucoma Office Visit 10/18/2011 9:45a Steven Garcia, 365.11 Primary Open , pc M.DWesly Angle Glaucoma 365.72 Moderate Glaucoma Office Visit 07/18/2011 10:30a Steven Garcia, 365.20 Primary Angle , pc M.DWesly Closure Glaucoma 365.01 Low Risk Open Angle Glaucoma/ Suspect 365.72 Moderate Glaucoma Office Visit 06/06/2011 10:30a Alexandre Garcia 366.16 Senile Nuclear , wilner Contreras M.D. Sclerosis / Cataract 365.11 Primary Open Angle Glaucoma Office Visit 07/05/2010 8:15a Steven Garcia, 365.11 Primary Open wilner LANDAVERDE M.DWesly Angle Glaucoma Office Visit 01/25/2010 8:15a Steven Garcia, 365.11 Primary Open wilner LANDAVERDE M.DWesly Angle Glaucoma Office Visit 09/02/2009 9:00a Steven Garcia, 365.11 Primary Open wilner LANDAVERDE M.DWesly Angle Glaucoma 373.00 Blepharitis Unspec Office Visit 12/21/2008 9:45a Alexandre Recio 365.11 Primary Open MD Diane, pc M.DWesly Angle Glaucoma Office Visit 04/14/2008 9:30a Alexandre Recio 365.11 Primary Emeterio Contreras MD, pc M.DWesly Angle Glaucoma Office Visit 02/06/2008 2:00p Alexandre Contreras, 366.16 Senile Nuclear MD Contreras pc M.D. Sclerosis / Cataract Office Visit 07/09/2007 10:15a Alexandre Recio, 365.11 Primary Open MD Contreras pc M.D. Angle Glaucoma Office Visit 12/27/2005 10:15a Alexandre Recio, 365.11 Primary Open MD Contreras pc M.D. Angle Glaucoma 366.14 Posterior Subcapsular Polar Cataract Senile Office Visit 01/26/2005 8:45a Steven Garcia, 365.11 Primary Open wilner LANDAVERDE M.D. Angle Glaucoma Office Visit 07/28/2004 8:45a Steven Garcia, 365.11 Primary Open wilner LANDAVERDE M.D. Angle Glaucoma Office Visit 03/22/2004 8:45a Steven Garcia, 365.11 Primary Open wilner LANDAVERDE M.D. Angle Glaucoma Plan of Treatment 08/08/2018 - Alexandre Contreras M.D.H40.1131 Primary open-angle glaucoma, bilateral, mild stageComments:Smoking can increase the risk of developing or worsening any eye related disease, as well as affect your overall health. If you are a smoker, we strongly recommend that you quit.If you are not a smoker, we strongly recommend that you do not start. Your glaucoma is stable at this time.Your eye pressure is within an acceptable range, and your testing does not show any further deterioration at this time. Please continue your treatment.Follow up:1 Month Follow Up MC IOP Check NO DILATION 6 Month Follow Up RADFE/IOP OCT MAC You can expect to have your eyes dilated at your next visit. If Dr. Contreras orders any additional testing, it may require extra time. We recommend that you bring sunglasses, as dilation drops often make you light sensitive until they wear off. We always recommend you bring someone to drive you home if you are uncomfortable driving with your eyes dilated. If you have any questions before your next visit, feel free to call our office at .Z96.1 Presence of intraocular lensComments:The artificial lens implants in both eyes appear to be stable at this time.H35.3135 Nonexudative age-related macular degeneration, bilateral, early dry stageComments:You have Macular Degeneration. Check your Amsler Grid, with each eye separately, and take the AREDS II formula vitamins. If you notice any changes in your vision, please call the office and schedule anappointment to see any of the doctors here.Follow up:6 Month Follow Up OCT MACZ79.899 Other terminal operations manager (current) drug therapyComments:Some of the medications you are on have the potential to cause damage to your retinas. Depending on the length of time that you have been taking the medication, Dr. Contreras may monitor you annually or bi-annually. Dr. Contreras may also order a Visual Field test or an Optical Coherence Tomography test to monitor your retinas. Dr. Contreras has sent a report to your primary care doctor, letting them know the current status of your retinas.M32.9 Systemic lupus erythematosus, unspecified
[2018-08-10 14:31] VITALS: BP 155/92
[2018-08-10] MEDS ORDERED: HYDROcodone/ACETAMIN 5-325 MG* 1 TAB PO ONE (14:45)
--- NOTE | 2018-08-10 14:51 | UC ---
Lower Extremity/Ankle HPI - HPI Summary HPI Summary: 77-year-old male comes in with a chief complaint of pain swelling and redness and drainage from his right second and third toes. He has a history of vascular insufficiency in both of his feet. Little more than 3 weeks ago he had his toenails shortened. After that he started with some drainage from the second and third right toes and they've become erythematous and quite painful. He's been on azithromycin Z-Michael 2 without any improvement things are getting worse. Does hurt more with any kind of movement or pressure, slightly better with rest and keeping the foot dependent. No fevers or chills. - History of Current Complaint Chief Complaint: UCLowerExtremity Stated Complaint: RED SWOLLEN TOES/AND ANKLE Time Seen by Provider: 08/10/18 14:39 Pain Intensity: 8 - Allergies/Home Medications Allergies/Adverse Reactions: Allergies Allergy/AdvReac Type Severity Reaction Status Date / Time alendronate sodium Allergy Unknown Verified 08/10/18 14:32 Reaction Details azathioprine Allergy Unknown Verified 08/10/18 14:32 Reaction Details benazepril [From Lotensin] Allergy Unknown Verified 08/10/18 14:32 Reaction Details celecoxib Allergy Hives Verified 08/10/18 14:32 cilostazol Allergy Unknown Verified 08/10/18 14:32 Reaction Details clindamycin Allergy Unknown Verified 08/10/18 14:32 Reaction Details glucosamine Allergy Unknown Verified 08/10/18 14:32 Reaction Details hydrochlorothiazide Allergy Unknown Verified 08/10/18 14:32 [From Dyazide] Reaction Details hydroxychloroquine Allergy Unknown Verified 08/10/18 14:32 Reaction Details methotrexate Allergy See Comment Verified 08/10/18 14:32 triamterene [From Dyazide] Allergy Unknown Verified 08/10/18 14:32 Reaction Details Home Medications: Home Medications Azithromycin TAB* [Zithromax TAB (Z-MICHAEL) 250 mg #6 tabs] 1 tab PO DAILY [History Confirmed 08/10/18] Hydroxychloroquine TAB* [Plaquenil TAB*] 2 tab PO DAILY 08/10/18 [History Confirmed 08/10/18] levETIRAcetam [Keppra] 1 tab PO BID 08/10/18 [History Confirmed 08/10/18] PMH/Surg Hx/FS Hx/Imm Hx Other Cardiovascular History: vascular insufficiency - Surgical History Surgical History: Yes Surgery Procedure, Year, and Place: rotator cuff repair bilat; varicele 20YRS + ; CATARACTS BILAT. Torn ligament in left elbow- over 20yrs ago - Family History Known Family History: Positive: None, Cardiac Disease Negative: Diabetes - Social History Alcohol Use: None Alcohol Amount: 1-2 day,now has cut back. Substance Use Type: None Smoking Status (MU): Former Smoker Type: Cigarettes Amount Used/How Often: 1-2 packs in week Have You Smoked in the Last Year: No - Immunization History Most Recent Influenza Vaccination: last season Most Recent Tetanus Shot: 04/03/16 Most Recent Pneumonia Vaccination: has had Review of Systems All Other Systems Reviewed And Are Negative: Yes Constitutional: Positive: Negative Skin: Positive: Rash Eyes: Positive: Negative ENT: Positive: Negative Respiratory: Positive: Negative Cardiovascular: Positive: Negative Gastrointestinal: Positive: Negative Motor: Positive: Negative Neurovascular: Positive: Negative Musculoskeletal: Positive: Other: - SEE HPI Neurological: Positive: Negative Psychological: Positive: Negative Is Patient Immunocompromised?: Yes Physical Exam Triage Information Reviewed: Yes Appearance: Well-Appearing, Well-Nourished, Pain Distress - MILD Vital Signs: Initial Vital Signs Temp 98.7 F 08/10/18 14:27 Pulse 89 08/10/18 14:27 Resp 18 08/10/18 14:27 BP 155/92 08/10/18 14:27 Pulse Ox 100 08/10/18 14:27 Vital Signs Reviewed: Yes Eye Exam: Normal Eyes: Positive: Conjunctiva Clear Neck exam: Normal Neck: Positive: Supple Respiratory: Positive: No respiratory distress Musculoskeletal: Positive: Other: - The right second and third toe or erythematous and slightly swollen or some drainage on the nailbeds. They're tender to palpation. There is no proximal streaking. There is edema in both feet it is worse on the right. Neurological Exam: Normal Neurological: Positive: Alert, Muscle Tone Normal Psychological Exam: Normal Psychological: Positive: Normal Response To Family, Age Appropriate Behavior Skin: Positive: Other - Erythema of the distal aspects of all 10 toes. The erythema is more extensive on the right toes. It is blanching. Lower Extremity Course/Dx - Course Course Of Treatment: Order Information: FOOT RIGHT 3+ VWS. Accession Number: [id number]. CPT: 99598. HISTORY: PAIN/SWELLING/ERYTHEMA 2ND/3RD TOES. COMPARISONS: None. VIEWS: 3 , Frontal, lateral, and oblique views of the right foot. FINDINGS: BONE DENSITY: Normal. BONES: There is no displaced fracture. There is no appreciable erosion or periosteal. reaction. 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 ALIGNMENT: There is no dislocation. SOFT TISSUES: There is peripheral arterial calcification. OTHER FINDINGS: None. IMPRESSION: 1. PERIPHERAL ARTERIAL DISEASE. 2. NO APPRECIABLE EROSION OR PERIOSTEAL REACTION. PLAIN FILM FINDINGS OF OSTEOMYELITIS. ARE RELATIVELY LATE FINDINGS. IF THERE IS PERSISTENT CLINICAL CONCERN FOR OSTEOMYELITIS,. RECOMMEND CORRELATION WITH FOLLOWUP IMAGING, THREE- PHASE BONE SCANNING, WHITE BLOOD CELL. SCAN, AND/OR MRI OF THE AFFECTED REGION. . < Electronically signed by Maurice Olivarez MD in OV> 08/10/18 [id number]. I discussed the x-ray reports with the patient. I did a culture of the tip of the toes. When I did the wound culture there was minimal drainage so if there are no results it does not necessarily rule out bacterial infection. Starting him on Augmentin. Follow-up is vascular surgeon, DR ISAACS, on Sunday which is August 12, 2018. I let him know if his condition continued to worsen. Streaking or fevers he is to go to the emergency department for further evaluation and treatment. - Differential Dx/Diagnosis Provider Diagnoses: CELLULITIS RIGHT 2ND/3RD TOES Discharge - Sign-Out/Discharge Documenting (check all that apply): Patient Departure All imaging exams completed and their final reports reviewed: Yes - Discharge Plan Condition: Stable Disposition: HOME Prescriptions: Amoxicillin/Clavulanate TAB* [Augmentin TAB 875*] 875 mg PO BID #20 tab oxyCODONE/Acetamin 5/325 MG* [Percocet 5/325 TAB*] 1 tab PO Q4H PRN #30 tab MDD 6 PRN Reason: Pain Patient Education Materials: Cellulitis (ED), Peripheral Vascular Disease (ED) Referrals: May Castillo MD [Primary Care Provider] - Ponce Isaacs MD [Medical Doctor] - Additional Instructions: FOLLOW UP WITH DR ISAACS ON 08/12/18, SCHEDULED. GO TO THE EMERGENCY DEPARTMENT FOR ANY WORSENING OF YOUR CONDITION; PAIN, FEVER , SPREAD OF INFECTION OR QUESTIONS OR CONCERNS. - Billing Disposition and Condition Condition: STABLE Disposition: Home
--- NOTE | 2018-08-14 18:39 | UC ---
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 Please call back patient to see if wound is improving. If not please advised pt should go to the ER for further management since patient shows resistance to multiple antibiotics. Thank you Irene Gonzalez PA-c Discharge - Sign-Out/Discharge Documenting (check all that apply): Patient Departure - D/c home All imaging exams completed and their final reports reviewed: Yes - Discharge Plan Condition: Stable Disposition: HOME Prescriptions: Amoxicillin/Clavulanate TAB* [Augmentin TAB 875*] 875 mg PO BID #20 tab oxyCODONE/Acetamin 5/325 MG* [Percocet 5/325 TAB*] 1 tab PO Q4H PRN #30 tab MDD 6 PRN Reason: Pain Patient Education Materials: Cellulitis (ED), Peripheral Vascular Disease (ED) Referrals: May Castillo MD [Primary Care Provider] - Ponce Isaacs MD [Medical Doctor] - Additional Instructions: FOLLOW UP WITH DR ISAACS ON 08/12/18, SCHEDULED. GO TO THE EMERGENCY DEPARTMENT FOR ANY WORSENING OF YOUR CONDITION; PAIN, FEVER , SPREAD OF INFECTION OR QUESTIONS OR CONCERNS. - Billing Disposition and Condition Condition: STABLE Disposition: Home
== END 2018-08-10 15:29 | disposition home or self-care (01) ==
LOC: UCEAST 14:08
DX: L03.031 Cellulitis of right toe (principal); Z88.8 Allergy status to other drugs, medicaments and biological substances; Z88.1 Allergy status to other antibiotic agents; Z87.891 Personal history of nicotine dependence
CPT/HCPCS: 87070; 87077; 87186; 87205; 99212; G0463

== ENCOUNTER 2018-09-20 16:49 | Inpatient (IN) | payer MEDICARE ==
[2018-09-20] MEDS: Morphine INJ* 2 MG/ML 1 ML SYRINGE (TWO MG - NEW SYRINGE VERSION) IV PRN ×3 (18:19→22:07)
[2018-09-20 18:38] LABS: ABS Basophils 0 10^3/ul (0-0.2); ABS Eosinophils 0 10^3/ul (0-0.6); ABS Lymphocytes 1.1 10^3/ul (1.0-4.8); ABS Neutrophils 3.9 10^3/ul (1.5-7.7); ABS Nucleated RBC 0 10^3/ul; Eosinophil % 0.3 %; Hematocrit 37 % (42-52); Hemoglobin 12.6 g/dl (14.0-18.0); Lymphocyte % 18.6 %; Mean Corpuscular HGB Conc 34 g/dl (31-36); Mean Corpuscular Hemoglobin 30 pg (27-31); Mean Corpuscular Volume 87 fL (80-94); Mean Platelet Volume 5.8 fL (7.4-10.4); Nucleated Red Blood Cells % 0; Platelet Count 308 10^3/ul (150-450); Red Blood Count 4.21 10^6/ul (4.00-5.40); Red Cell Distribution Width 15 % (10.5-15)
[2018-09-20 18:52] LABS: Activated Partial Thrombo Time 30.9 seconds (26.0-36.3); INR 0.92 (0.77-1.02)
[2018-09-20 18:57] LABS: Albumin 3.6 g/dL (3.2-5.2); Albumin/Globulin Ratio 1.3 (1-3); BUN/Creatinine Ratio 14.1 (8-20); Globulin 2.7 g/dL (2-4); Potassium 4.1 mmol/L (3.5-5.0); Total Bilirubin 0.7 mg/dL (0.2-1.0); Total Protein 6.3 g/dL (6.4-8.9)
[2018-09-20] MEDS ORDERED: Zosyn per Pharmacy* NOTE FOLLOW UP SCH (20:00)
[2018-09-20] MEDS ORDERED: Piperacillin/Tazobac ADVAN(*) 3.375 GM in NS 0.9% 100 ML* 100 ML IVPB ONE (20:00)
[2018-09-20] MEDS: oxyCODONE/Acetamin 5/325 MG* TAB PO PRN (20:35)
[2018-09-20 20:47] LABS: Urine Appearance Clear; Urine Bilirubin Negative (Negative); Urine Blood Negative (Negative); Urine Color Yellow; Urine Glucose Negative (Negative); Urine Ketones Negative (Negative); Urine Nitrite Negative (Negative); Urine Protein Negative (Negative); Urine Specific Gravity 1.009 (1.010-1.030); Urine Urobilinogen Negative (Negative)
[2018-09-20] MEDS ORDERED: Rivaroxaban TAB(*) 10 MG PO SCH (21:00)
[2018-09-20] MEDS: Latanoprost 0.005%* 2.5 ml BTL BOTH EYES SCH (22:04)
[2018-09-20] MEDS: levETIRAcetam TAB* 500 MG PO SCH (22:05)
[2018-09-20] MEDS: Tamsulosin CAP* 0.4 MG PO SCH (22:05)
[2018-09-21] MEDS: Morphine INJ* 2 MG/ML 1 ML SYRINGE (TWO MG - NEW SYRINGE VERSION) IV PRN ×9 (00:30→22:23)
[2018-09-21] MEDS: oxyCODONE/Acetamin 5/325 MG* TAB PO PRN ×5 (00:33→22:10)
--- NOTE | 2018-09-21 01:46 | HP ---
CC: Dr. Linares; Dr. Liriano; Dr. Schroeder, [place], [place] * HISTORY AND PHYSICAL: DATE OF ADMISSION: 09/20/18 HISTORY OF PRESENT ILLNESS: John Tong is a 78-year-old man admitted with severe pain in his legs, leg swelling, a recent procedure for peripheral vascular disease. The patient has been having chronic pain in his right foot with nonhealing wounds. He has been treated by Dr. Linares. Prior to March 2018 , he was walking 2 miles a day, but more recently, he has only been able to walk a few feet at a time. He has had imaging in the past showing widespread calcified atherosclerosis with narrowing, with no focal occlusions in the bilateral SFA. He came into the hospital here on 08/16/18 and underwent interventional procedure by Dr. Liriano. He did a right leg arteriogram by ipsilateral right common femoral arteriotomy with balloon angioplasty of the right LAQUITA, peroneal artery, but revascularization of the right LAQUITA and pedal loop was unsuccessful. He subsequently had procedure in [place] successfully done by Dr. Lior Schroeder which was a posterior tibial orbital atherectomy and angioplasty with restored flow in the lateral plantar artery into the forefoot and percutaneous transluminal angioplasty of a focal stenosis of the peroneal origin . He presented to my office on 09/12/18 after that procedure, but was still in considerable pain with significant swelling of his legs and erythema on the right. When I saw him last week, I put him on furosemide because his legs were markedly swollen. This was likely due to the fact that he could not be comfortable with his feet elevated and had to have them dependent in order to help with the pain. I started him on long-acting OxyContin as he had been taking Percocet. His pain has not improved at all in the past week. He is in a lot of pain and his legs are weeping. He is being admitted to the hospital at the present time. PAST MEDICAL HISTORY: Significant for the following medical problems: 1. History of hypertension. 2. Peripheral vascular disease. 3. BPH with lower urinary tract symptoms. 4. Ankylosing spondylitis versus polymyalgia rheumatica, on chronic steroids. 5. Osteoporosis. 6. 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 7. Seizure disorder, recently diagnosed and the patient now on Keppra. 8. 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 9. History of lumbar radiculopathy. PAST SURGICAL HISTORY: Prior surgeries include: 1. Right rotator cuff repair. 2. Bilateral cataract extractions. 3. Left rotator cuff repair. 4. Left lateral elbow release. 5. Tonsillectomy. 6. Left hydrocele repair. ALLERGIES TO MEDICATIONS: SULFA caused rash; CLINDAMYCIN caused rash, HYDROXYCHLOROQUINE had caused diarrhea in the past, but is currently tolerating it; METHOTREXATE caused mouth ulcers; AZATHIOPRINE caused nausea, vomiting, diarrhea; LOTENSIN caused cough; DYAZIDE caused rash; GLUCOSAMINE SULFATE?, FOSAMAX?, CELEBREX? MEDICATIONS: Current medications are as follows: 1. OxyContin 10 mg twice a day. 2. Triple antibiotic ointment to his toes. 3. Furosemide 20 mg every day. 4. Percocet 5/325 one to two tablets every 4 hours as needed. 5. Prednisone, he had previously been on 15 mg a day, but recently tapered down to 7.5 mg a day; just started that dose today. Before today, he was on 9 mg a day. 6. Finasteride 5 mg every day. 7. Risedronate 35 mg weekly. 8. Hydroxychloroquine 400 mg every day. 9. Levetiracetam 500 mg twice a day. 10. Pantoprazole 40 mg every day. 11. Tamsulosin 0.4 mg twice a day. 12. Loratadine 10 mg every day. 13. Travatan eye drops 0.004% 1 drop ophthalmically both eyes every evening. 14. MultiVites 1 every day. 15. Calcium 600 plus D 1 tablet every day. 16. Baby aspirin 81 mg daily. 17. Xarelto 2.5 mg twice a day. 18. Atorvastatin 40 mg daily. HABITS: Tobacco, former smoker. ETOH, none at present. FAMILY HISTORY: Noncontributory. SOCIAL AND PERSONAL HISTORY: The patient is . He lives in his own home. He is retired. REVIEW OF SYSTEMS: Generally, he was feeling alright, except for the pain in his feet. He is not sleeping well. He states he is eating and drinking okay. Skin: See above. HEENT: Negative. Nodes: Negative. Heme: Negative. Endocrine: See above. Respiratory: Negative. Cardiovascular: See above. GI : Negative. : See above. Musculoskeletal: See above. Neuro: See above. Psychiatric: Discouraged with the amount of pain he is in. PHYSICAL EXAMINATION VITAL SIGNS: Blood pressure 128/70, pulse 56, respirations 16, temperature 97.7. Weight 175 pounds. This is 3 pounds up since 8 days ago. SKIN: Warm and dry. He has marked erythema of his right greater than left lower extremitiy (see below). HEENT: Atraumatic, normocephalic. Full EOMs. Mouth, pharynx unremarkable. NECK: Supple. No thyromegaly. CHEST: Clear. HEART: Normal S1, S2. There are no murmurs, gallops, or rubs. Pedal pulses are absent. ABDOMEN: Soft, nontender. EXTREMITIES: Show marked 4+ edema. His left lower leg is weeping. His right toes are extremely tender, especially toes 1 to 3. There is scabbing of the toenails, dry gangrene. NEUROLOGIC: A detailed neurologic exam was not performed. There are no gross focal or lateralizing signs. IMPRESSION AND PLAN: 1. The patient with peripheral vascular disease. I am not sure that the recent procedure was successful. Apparently, it was initially, but it may have failed. At present, he is in a lot of pain. I have spoken with Interventional Radiology, Dr. Liriano. We will be reassessing his vascular status with a duplex of the arterial system. I will get an x-ray of his feet to make sure he is not developing osteomyelitis. I am going to get labs. I am going to start him on IV antibiotics as he appears to have cellulitis. He is to continue furosemide. Hopefully, with the addition of morphine, he will be able to keep his legs up to help with resolving the edema. 2. He is DNR per his previous wishes. 3. DVT prophylaxis will be with the rivaroxaban, which he is already taking. [id number]/[facility] #: [id number] [facility]
[2018-09-21] MEDS: ZOSYN 3.375 GM Q8H per EXTENDED INFUSION IVPB SCH ×6 (02:17→18:07)
[2018-09-21] MEDS: Omeprazole CAP* 20 MG PO SCH (07:53)
[2018-09-21] MEDS: Hydroxychloroquine TAB* 200 MG PO SCH (08:53)
[2018-09-21] MEDS: Aspirin EC TAB* 81 MG TAB.EC PO SCH (08:55)
[2018-09-21] MEDS: levETIRAcetam TAB* 500 MG PO SCH ×4 (08:55→20:21)
[2018-09-21] MEDS: Tamsulosin CAP* 0.4 MG PO SCH ×2 (08:55→20:21)
[2018-09-21] MEDS: Atorvastatin* 40 MG TAB PO SCH (08:55)
[2018-09-21] MEDS: predniSONE TAB* 5 MG PO SCH (08:56)
[2018-09-21] MEDS: Finasteride TAB* 5 MG PO SCH (08:56)
[2018-09-21] MEDS ORDERED: RIVAROXABAN 2.5 MG PO SCH (09:00)
[2018-09-21] MEDS ORDERED: Furosemide TAB* 20 MG PO SCH (09:00)
[2018-09-21] MEDS ORDERED: Furosemide IV* 10 MG/ML 2 ML VIAL (20 MG) IV ONE (11:23)
[2018-09-21] MEDS: Cetirizine* 10 MG TAB PO SCH (18:07)
[2018-09-21] MEDS: Latanoprost 0.005%* 2.5 ml BTL BOTH EYES SCH (20:22)
[2018-09-21] MEDS: XARELTO 2.5 MG PO SCH (22:09)
[2018-09-22] MEDS: ZOSYN 3.375 GM Q8H per EXTENDED INFUSION IVPB SCH ×6 (02:15→17:45)
[2018-09-22] MEDS: Morphine INJ* 2 MG/ML 1 ML SYRINGE (TWO MG - NEW SYRINGE VERSION) IV PRN (02:17)
[2018-09-22] MEDS: oxyCODONE/Acetamin 5/325 MG* TAB PO PRN ×3 (02:17→23:14)
[2018-09-22] MEDS ORDERED: Morphine VIAL* 4 MG/ML VIAL (1 ml vial) IV PRN (03:00)
[2018-09-22 07:17] LABS: ABS Basophils 0 10^3/ul (0-0.2); ABS Eosinophils 0.1 10^3/ul (0-0.6); ABS Lymphocytes 1.5 10^3/ul (1.0-4.8); ABS Monocytes 1.1 10^3/ul (0-0.8); ABS Neutrophils 3.5 10^3/ul (1.5-7.7); ABS Nucleated RBC 0 10^3/ul; Hematocrit 34 % (42-52); Hemoglobin 11.7 g/dl (14.0-18.0); Lymphocyte % 24.8 %; Mean Corpuscular HGB Conc 34 g/dl (31-36); Mean Corpuscular Hemoglobin 30 pg (27-31); Mean Corpuscular Volume 87 fL (80-94); Mean Platelet Volume 6.3 fL (7.4-10.4); Nucleated Red Blood Cells % 0.1; Platelet Count 270 10^3/ul (150-450); Red Blood Count 3.95 10^6/ul (4.00-5.40); Red Cell Distribution Width 15 % (10.5-15); White Blood Count 6.2 10^3/ul (3.5-10.8)
[2018-09-22 07:34] LABS: Albumin 3.3 g/dL (3.2-5.2); Albumin/Globulin Ratio 1.3 (1-3); BUN/Creatinine Ratio 13.6 (8-20); C Reactive Protein 28.85 mg/L (<8.01); Calcium 8.5 mg/dL (8.6-10.3); EGFR Non-African American 91.9 (>60); Globulin 2.5 g/dL (2-4); Magnesium 1.7 mg/dL (1.9-2.7); Phosphorus 3.8 mg/dL (2.5-5.0); Potassium 3.5 mmol/L (3.5-5.0); Total Bilirubin 0.8 mg/dL (0.2-1.0); Total Protein 5.8 g/dL (6.4-8.9)
[2018-09-22] MEDS: XARELTO 2.5 MG PO SCH ×2 (08:27→20:16)
[2018-09-22] MEDS: Aspirin EC TAB* 81 MG TAB.EC PO SCH (08:27)
[2018-09-22] MEDS: Finasteride TAB* 5 MG PO SCH (08:27)
[2018-09-22] MEDS: Omeprazole CAP* 20 MG PO SCH (08:27)
[2018-09-22] MEDS: Hydroxychloroquine TAB* 200 MG PO SCH (08:27)
[2018-09-22] MEDS: levETIRAcetam TAB* 500 MG PO SCH ×3 (08:27→20:10)
[2018-09-22] MEDS: Tamsulosin CAP* 0.4 MG PO SCH ×2 (08:27→20:10)
[2018-09-22] MEDS: predniSONE TAB* 5 MG PO SCH (08:28)
[2018-09-22] MEDS: Atorvastatin* 40 MG TAB PO SCH (08:28)
--- NOTE | 2018-09-22 11:38 | PN ---
Subjective - Subjective Reason for Note: Progress Note History: I have obtained a history from Dr. May Castillo and from the EHR and the patient. Today he has severe 8 - 9/10 pain right foot with lancinating pain 10/10. He has to stand because the pain is so severe. The opioids are not taking care of this. He can't elevate his right foot. He has no symptoms from the left leg cellulitis. Today he has no other symptoms aside from some opioid induced constipation. 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 Essential hypertension (Chronic) I10 Lumbar radiculopathy (Chronic) M54.16 Osteoporosis (Chronic) M81.0 Polymyalgia rheumatica (Chronic) M35.3 Psoriatic arthritis (Chronic) L40.50 Secondary adrenal insufficiency (Chronic) E27.49 Seizure disorder (Chronic) G40.909 Current Medications: Current Medications Acetaminophen (Tylenol Tab*) 650 mg PO Q6H PRN PRN Reason: PAIN Aspirin (Aspirin Ec Tab*) 81 mg PO DAILY [facility] Last Admin: 09/22/18 08:27 Dose: 81 mg Atorvastatin Calcium (Lipitor*) 40 mg PO DAILY [facility]ACK[facility] Last Admin: 09/22/18 08:28 Dose: 40 mg Cetirizine HCl (Zyrtec*) 10 mg PO QPM JACKIE Last Admin: 09/21/18 18:07 Dose: 10 mg Finasteride (Proscar Tab*) 5 mg PO DAILY JACKIE Last Admin: 09/22/18 08:27 Dose: 5 mg Hydroxychloroquine Sulfate (Plaquenil Tab*) 400 mg PO DAILY [facility] Last Admin: 09/22/18 08:27 Dose: 400 mg Piperacillin Sod/Tazobactam (Sod 3.375 gm/ Sodium Chloride) 100 mls @ 25 mls/ hr IVPB Q8H [facility] Last Admin: 09/22/18 10:41 Dose: 25 mls/hr Latanoprost (Xalatan 0.005%*) 1 drop BOTH EYES BEDTIME JACKIE; Protocol Last Admin: 09/21/18 20:22 Dose: 1 drop Levetiracetam (Keppra Tab*) 500 mg PO TID [facility] Last Admin: 09/22/18 08:27 Dose: 500 mg Morphine Sulfate (Morphine Vial*) 4 mg IV Q2H PRN PRN Reason: PAIN Last Admin: 09/22/18 05:39 Dose: 4 mg Pto - Xarelto ( (Rivaroxaban) 2.5 Mg) 1 dose PO BID [facility] Last Admin: 09/22/18 08:27 Dose: 1 dose Omeprazole (Prilosec Cap*) 20 mg PO DAILY@0730 [facility] Last Admin: 09/22/18 08:27 Dose: 20 mg Oxycodone/Acetaminophen (Percocet 5/325 Tab*) 1 tab PO Q4HR PRN PRN Reason: PAIN Last Admin: 09/22/18 07:27 Dose: 1 tab Pharmacy Consult (Zosyn Per Pharmacy*) 1 note FOLLOW UP .ZOSYN PER PHARMACY [facility] Prednisone (Deltasone Tab*) 7.5 mg PO DAILY [facility] Last Admin: 09/22/18 08:28 Dose: 7.5 mg Tamsulosin HCl (Flomax Cap*) 0.4 mg PO BID [facility] Last Admin: 09/22/18 08:27 Dose: 0.4 mg - Review of Systems Pulmonary: Negative: Cough, Sputum, Hemoptysis, Respiratory Distress, Shortness of Breath Cardiology: Negative: Chest Pain, Palpitations, Faintness Gastroenterology: Positive: Constipation Negative: Abdominal Pain, Nausea, Vomiting Genital - Urinary: Positive: Other - some flow issues Negative: Dysuria Neurology: Negative: Headache, Change in Vision Home Medications: Home Medications Medication Instructions Recorded Confirmed Type Tamsulosin CAP* [Flomax CAP*] 1 cap PO BID 08/03/14 09/20/18 History Aspirin [Aspirin Adult Low Dose 81 81 mg PO DAILY 04/04/16 09/20/18 History MG] Finasteride TAB* [Proscar TAB*] 5 mg PO DAILY 04/04/16 09/20/18 History Multiple Vitamins W/ Minerals 1 tab PO DAILY 04/04/16 09/20/18 History [Centrum] Travoprost Z 0.004% OPHTH (NF) 1 drop BOTH EYES BEDTIME 04/04/16 09/20/18 History [Travatan Z 0.004% OPTH (NF)] Calcium Carbonate/Vitamin D3 1 tab PO DAILY 03/23/17 09/20/18 History [Super Calcium 600-Vit D3 400] Loratadine 10 mg PO DAILY 03/23/17 09/20/18 History Pantoprazole TAB (NF) [Protonix 40 mg PO DAILY 03/23/17 09/20/18 History TAB (NF)] Acetaminophen TAB* [Tylenol TAB*] 650 mg PO Q6H PRN #30 tab 05/19/18 09/20/18 Rx Hydroxychloroquine TAB* [Plaquenil 2 tab PO BID 08/10/18 09/20/18 History TAB*] levETIRAcetam [Keppra] 1 tab PO BID 08/10/18 09/21/18 History Albuterol HFA INHALER* [Ventolin 2 puff PO Q4H PRN 08/15/18 09/20/18 History HFA Inhaler*] oxyCODONE/Acetamin 5/325 MG* 1 - 2 tab PO Q6HR PRN #40 tab MDD 8 08/21/18 Rx [Percocet 5/325 TAB*] Atorvastatin Calcium [Lipitor] 40 mg PO DAILY 09/20/18 09/20/18 History Furosemide 20 mg PO DAILY 09/20/18 09/20/18 History Rivaroxaban [Xarelto] 2.5 mg PO BID 09/20/18 09/20/18 History oxyCODONE SR TAB(*) [Oxycontin 10 10 mg PO BID 09/20/18 09/20/18 History mg (*)] predniSONE [Prednisone 5 MG TAB] 1.5 tab PO DAILY 09/20/18 09/20/18 History Allergies: Allergies Allergy/AdvReac Type Severity Reaction Status Date / Time alendronate sodium Allergy Unknown Verified 08/10/18 14:32 Reaction Details azathioprine Allergy Unknown Verified 08/10/18 14:32 Reaction Details benazepril [From Lotensin] Allergy Unknown Verified 08/10/18 14:32 Reaction Details celecoxib Allergy Hives Verified 08/10/18 14:32 cilostazol Allergy Unknown Verified 08/10/18 14:32 Reaction Details clindamycin Allergy Unknown Verified 08/10/18 14:32 Reaction Details glucosamine Allergy Unknown Verified 08/10/18 14:32 Reaction Details hydrochlorothiazide Allergy Unknown Verified 08/10/18 14:32 [From Dyazide] Reaction Details hydroxychloroquine Allergy Unknown Verified 08/10/18 14:32 Reaction Details methotrexate Allergy See Comment Verified 08/10/18 14:32 triamterene [From Dyazide] Allergy Unknown Verified 08/10/18 14:32 Reaction Details Objective - Vital Signs Vital Signs: Vital Signs 09/21/18 09/21/18 09/21/18 11:50 11:53 12:50 Temperature Pulse Rate Respiratory 16 16 15 Rate Blood Pressure (mmHg) O2 Sat by Pulse Oximetry 09/21/18 09/21/18 09/21/18 15:18 15:51 16:51 Temperature 97.4 F Pulse Rate 62 Respiratory 30 18 15 Rate Blood Pressure 118/58 (mmHg) O2 Sat by Pulse 100 Oximetry 09/21/18 09/21/18 09/21/18 17:51 18:07 19:11 Temperature 97.9 F Pulse Rate 64 Respiratory 16 16 12 Rate Blood Pressure 110/59 (mmHg) O2 Sat by Pulse 100 Oximetry 09/21/18 09/21/18 09/21/18 20:00 20:22 22:10 Temperature Pulse Rate Respiratory 16 16 18 Rate Blood Pressure (mmHg) O2 Sat by Pulse Oximetry 09/21/18 09/21/18 09/21/18 22:23 23:07 23:25 Temperature 97.8 F Pulse Rate 63 Respiratory 20 18 16 Rate Blood Pressure 138/63 (mmHg) O2 Sat by Pulse 100 Oximetry 09/22/18 09/22/18 09/22/18 00:50 02:17 02:33 Temperature 98.1 F Pulse Rate 68 Respiratory 16 16 16 Rate Blood Pressure 150/72 (mmHg) O2 Sat by Pulse 98 Oximetry 09/22/18 09/22/18 09/22/18 03:20 04:20 05:39 Temperature Pulse Rate Respiratory 16 18 18 Rate Blood Pressure (mmHg) O2 Sat by Pulse Oximetry 09/22/18 09/22/18 09/22/18 07:16 07:27 08:00 Temperature 97.5 F Pulse Rate 66 Respiratory 16 18 18 Rate Blood Pressure 115/54 (mmHg) O2 Sat by Pulse 100 Oximetry - Intake and Output Intake and Output: Intake & Output 12/20/18 09/20/18 09/21/18 09/22/18 11:59 11:59 11:59 11:59 Intake Total 1280 1952 Output Total 400 825 Balance 880 1127 Weight 176 lb 8 oz 170 lb Intake: IV Fluids 134 NS (0.9%) 34 zosyn 100 IVPB 298 zosyn 298 Oral 1280 1520 Output: Urine 400 825 Other: Estimated Void Medium # Bowel Movements 0 0 # Voids 0 1 ADLs: Meal Record Start: 09/20/18 17: 41 Freq: DAILY@0900,1400,1800 Status: Active Protocol: Created 09/20/18 17:41 System (Rec: 09/20/18 17:41 System MED-C04) Document 09/21/18 09:00 [id number] (Rec: 09/21/18 09:41 [id number] MED-C11) Document 09/21/18 13:37 [id number] (Rec: 09/21/18 13:37 [id number] MED-C11) Document 09/21/18 18:00 [id number] (Rec: 09/21/18 18:11 [id number] MED-C16) Document 09/22/18 09:00 [id number] (Rec: 09/22/18 09:19 [id number] MED-C16) Intake and Output Start: 09/20/18 17: 41 Freq: DAILY@0600,1400,2200 Status: Active Protocol: Created 09/20/18 17:41 System (Rec: 09/20/18 17:41 System MED-C04) Document 09/20/18 21:15 [id number] (Rec: 09/20/18 21:16 [id number] MED-C11) Document 09/21/18 00:52 [id number] (Rec: 09/21/18 00:52 [id number] MEDL-C01) Document 09/21/18 04:30 [id number] (Rec: 09/21/18 06:23 [id number] MED-C04) Document 09/21/18 06:00 [id number] (Rec: 09/21/18 06:35 [id number] MEDL-C01) Document 09/21/18 13:58 [id number] (Rec: 09/21/18 13:58 [id number] MED-M09) Document 09/21/18 14:00 [id number] (Rec: 12/22/18 14:56 [id number] [facility]-C09) Document 09/21/18 22:00 [id number] (Rec: 09/21/18 22:21 [id number] [facility]-C09) Document 09/22/18 06:00 [id number] (Rec: 09/22/18 06:11 [id number] MED-C11) - Physical Exam General Physical Exam Comment: His right foot first 3 toes are swollen, red and cold. He has a small area of gangrene on the medial aspect right great toe. He has slow capillary refill. The 3 toenails are black. He is in severe pain and cannot sit still - had to stand for some of the visit. The left lower leg was bandaged. General: No Cyanosis, No Anemia, No Jaundice, No Clubbing Lungs and Chest: Yes: Chest Expansion Full, Chest Expansion Symetrica, Percussion Note Resonant, Vessicular Breath Sounds. No: Crackles, Wheezes, Respiratory Distress Heart Rate and Rhythm: Regular Additional Cardiovascular: Yes: Normal Heart Sounds. No: Heart Murmur, Carotid Bruits Abdominal Exam: Yes: Soft, Bowel Sounds Present. No: Distention, Hepatomegaly, Abdominal Tenderness - Extremities Cranial Nerves II-XII Intact: Yes - Neuro Orientation: A/O x3 Speech: Normal Results - Results Lab Results: Laboratory Results - last 24 hr 09/22/18 09/22/18 07:04 07:04 WBC 6.2 RBC 3.95 L Hgb 11.7 L Hct 34 L MCV 87 MCH 30 MCHC 34 RDW 15 Plt Count 270 MPV 6.3 L Neut % (Auto) 55.8 Lymph % (Auto) 24.8 [place] % (Auto) 17.7 Eos % (Auto) 1.0 Baso % (Auto) 0.7 Absolute Neuts (auto) 3.5 Absolute Lymphs (auto) 1.5 Absolute Monos (auto) 1.1 H Absolute Eos (auto) 0.1 Absolute Basos (auto) 0 Absolute Nucleated RBC 0 Nucleated RBC % 0.1 Sodium 133 L Potassium 3.5 Chloride 100 L Carbon Dioxide 28 Anion Gap 5 BUN 11 Creatinine 0.81 Est GFR ( Amer) 111.2 Est GFR (Non-Af Amer) 91.9 BUN/Creatinine Ratio 13.6 Glucose 94 Calcium 8.5 L Phosphorus 3.8 Magnesium 1.7 L Total Bilirubin 0.80 AST 41 H ALT 44 Alkaline Phosphatase 47 C-Reactive Protein 28.85 H Total Protein 5.8 L Albumin 3.3 Globulin 2.5 Albumin/Globulin Ratio 1.3 Radiology Results: Patient Name: ROSALIA SHEA Medical Record#: [id number] Ordering Physician: aMy Castillo MD Acct.#: [id number] : 1940 Age: 78 Sex: M Location: [address] [place] [address] MEDICAL Exam Date: 09/21/181925 ADM Status: ADM IN Order Information: VL LOWER EXT ART DUPLEX RIGHT Accession Number: [id number] CPT: 44847 Indication: Right toe pain. Duplex Doppler sonography of the arterial system of the right lower extremity was performed. The right popliteal artery demonstrates peak systolic velocity of 78 cm/s. The proximal right posterior tibial artery 47 cm/s. The distal right posterior tibial artery is occluded. Peroneal arteries are not well demonstrated. The right anterior tibial artery is patent measuring 47 cm/s and 45 cm/s in its proximal and distal portion. Multiple areas of calcified vessels are noted. IMPRESSION: Peroneal arteries are not well demonstrated. The distal right posterior tibial artery is occluded. <Electronically signed by Blanca Celestin MD in OV> 09/21/18 1259 Dictated By: Blanca Celestin MD Dictated Date/Time: 09/21/18 1259 Transcribed Date/Time: 09/21/18 1257 Copy to: CC:May Castillo MD Imaging - [facility] Imaging - [place] [facility] [address] [address] ph ([phone]) ph [phone]) ph ([phone]) Patient Name: ROSALIA SHEA Medical Record#: [id number] Ordering Physician: May Castillo MD Acct.#: [id number] : 1940 Age: 78 Sex: M Location: [address] [place] [address] MEDICAL Exam Date: 09/20/181941 ADM Status: ADM IN Order Information: FOOT RIGHT 3+ VWS Accession Number: [id number] CPT: 10463 Indication: Right foot pain. 3 views of the right foot demonstrates no fracture. No other bone or joint abnormality is identified. Atherosclerotic vessels are noted. When compared to August 10, 2018 no significant change is noted. IMPRESSION: Right foot demonstrates atherosclerosis but otherwise unremarkable as August 10, 2018. <Electronically signed by Blanca Celestin MD in OV> 09/21/18748 Dictated By: Blanca Celestin MD Dictated Date/Time: 09/21/18748 Transcribed Date/Time: 09/21/18745 Copy to: CC:May Castillo MD Imaging - [facility] Imaging - [place] [facility] Imaging - [facility] [address] [place] [address] ph [phone]) ph ([phone]) ph ([phone]) Assessment - Problem List Assessment: Patient Problems Cellulitis of left lower leg (Acute) Constipation due to opioid therapy (Acute) Ischemic pain of right foot (Acute) Peripheral arterial disease (Acute) 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 He has had occlusion of right posterial tibial artery after 2 endovascular interventions. I think he likely requires amputation. I have spoken with Dr. Heredia for orthopedics for a consultation - he may recommend a vascular surgery opinion - for which he may require transfer. In the meantime, he has severe pain not relieved by opioids. I will give him a trial of gabapentin per Dr. Heredia. I will increase his dose of opioids and provide oximetry. Cellulitis of left lower leg (Acute) He is receiving IV piperacillin/ tazobactam. I will maintain this. Constipation due to opioid therapy (Acute) for senna and colace BPH with urinary obstruction (Chronic) secondary diagnosis continue current Rx Cutaneous lupus erythematosus (Chronic) secondary diagnosis continue current Rx Essential hypertension (Chronic) secondary diagnosis continue current Rx Lumbar radiculopathy (Chronic) secondary diagnosis continue current Rx Osteoporosis (Chronic) secondary diagnosis continue current Rx Polymyalgia rheumatica (Chronic) secondary diagnosis continue current Rx Psoriatic arthritis (Chronic) secondary diagnosis continue current Rx Secondary adrenal insufficiency (Chronic) secondary diagnosis continue current Rx Seizure disorder (Chronic) secondary diagnosis continue current Rx I discussed the above with the patient and his . He is open to the idea of amputation at this stage as he has had problems for months. His still is concerned about potential viability of his right distal foot. I am concerned a distal amputation will not heal. I await Dr. Heredia's consultation.
[2018-09-22] MEDS ORDERED: Docusate CAP* 100 MG PO PRN (11:51)
[2018-09-22] MEDS ORDERED: Naloxone* 0.4 MG/ML 1 ML VIAL IV PUSH PRN (11:51)
[2018-09-22] MEDS ORDERED: Senna TAB PO PRN (11:51)
[2018-09-22] MEDS ORDERED: Morphine PCA ADULT* 5 MG/ML 30 ML PCA SCH (12:00)
[2018-09-22] MEDS: Gabapentin CAP(*) 300 MG PO SCH ×3 (13:32→20:11)
--- NOTE | 2018-09-22 14:10 | CONSULT ---
Consult Consult: Orthopedic Surgery Consultation Date: 09/22/18 Requesting Service: Medicine Chief Complaint: Right foot pain History: 78M with PVD with prior revascularizations by Dr Liriano and then most recently by Dr Schroeder on 09/03/18. He has noted increasing pain since the procedure. He thinks the rubor of the foot has increased since the procedure as well, although was present before as well. Review of Systems: Negative for fever, recent visual changes, difficulty swallowing, chest pain, shortness of breath, abdominal pain, hematuria, easy bruising, diffuse weakness or lack of coordination, and diffuse rash. PMH: HTN, PVD, BPH, ankylosing spondylitis vs PMR, osteoporosis, cutaneous lupus , seizure disorder, adrenal insufficiency PSH: RTC repair, cataracts, elbow release, tonsillectomy, hydrocele Medications:OxyContin, furosemide, Percocet, prednisone, finasteride, risedronate, hydroxychloroquine,levitracetam, pantoprazole, tamsulosin, loratadine, eyedrops, baby aspirin, Plavix Allergies:, sulfa, clindamycin, methotrexate, azathioprine, Lotensin, Dyazide, glucosamine, Fosamax, Celebrex SH:, . Lives at home. Retired.. Former smoker. No alcohol use. FH: Noncontributory Physical Examination: Constitutional: Temp Pulse Resp BP Pulse Ox 97.9 F 64 16 114/52 100 09/22/18 11:24 09/22/18 11:24 09/22/18 13:32 09/22/18 11:24 09/22/18 11:24 General appearance is healthy and non-septic in no acute distress. Cardiovascular: Heart with a regular rate and rhythm. Abdomen: Soft and nontender Lymphatic: No lymphadenopathy appreciated. Psychiatric / Neurological: Appropriate affect. Alert and oriented to person, place and time. There is no significant abnormality in coordination appreciated. Musculoskeletal: There is global edema in RLE with a ruborous foot. Small areas of dry necrosis at tips of 1st and 2nd toes. No purulence or drainage. Toes are very TTP Impression and Plan: John has severe peripheral vascular disease with 2 recent revascularizations. It is not entirely clear to me whether his pain is from the revascularization of chronically ischemic tissue, or due to failure of the revascularization with recurrent/worsening tissue ischemia. This has been a chronic issue for him with increased pain since his most recent procedure, and I do feel a proper vascular evaluation is warranted to try and determine the cause of his pain and possible options. He does think that he can get in to see Dr. Schroeder this week, which I think would be appropriate, but if not, I would recommend a vascular surgery evaluation in [place]. They were in agreement with this plan. I do not think there is any urgent need for amputation, as this is a chronic issue. Please let me know if I can be of further assistance. Chris Ureña MD
[2018-09-22] MEDS: fentaNYL PATCH 12 MCG/HR TRANSDERM SCH (15:44)
[2018-09-22] MEDS: HYDROmorphone INJ1* 1 MG/ML SYRINGE IV PRN ×2 (15:46→20:12)
[2018-09-22] MEDS: Cetirizine* 10 MG TAB PO SCH (17:45)
[2018-09-22] MEDS: fentaNYL Patch Check Q Shift 1 NOTE FOLLOW UP SCH (18:28)
[2018-09-22] MEDS: Latanoprost 0.005%* 2.5 ml BTL BOTH EYES SCH (20:10)
[2018-09-22] MEDS: Acetaminophen TAB* 325 MG PO PRN (23:14)
[2018-09-23] MEDS: ZOSYN 3.375 GM Q8H per EXTENDED INFUSION IVPB SCH ×6 (01:44→17:55)
[2018-09-23] MEDS: HYDROmorphone INJ1* 1 MG/ML SYRINGE IV PRN ×3 (01:44→21:40)
[2018-09-23 07:08] LABS: BUN/Creatinine Ratio 13.3 (8-20); C Reactive Protein 42.3 mg/L (<8.01); Calcium 7.7 mg/dL (8.6-10.3); EGFR Non-African American 89.4 (>60)
[2018-09-23] MEDS: fentaNYL Patch Check Q Shift 1 NOTE FOLLOW UP SCH ×2 (07:11→18:01)
[2018-09-23] MEDS: Omeprazole CAP* 20 MG PO SCH ×2 (07:16→09:25)
[2018-09-23] MEDS: Aspirin EC TAB* 81 MG TAB.EC PO SCH (09:25)
[2018-09-23] MEDS: Finasteride TAB* 5 MG PO SCH (09:28)
[2018-09-23] MEDS: levETIRAcetam TAB* 500 MG PO SCH ×3 (09:28→20:31)
[2018-09-23] MEDS: Atorvastatin* 40 MG TAB PO SCH (09:28)
[2018-09-23] MEDS: Gabapentin CAP(*) 300 MG PO SCH ×4 (09:28→20:30)
[2018-09-23] MEDS: predniSONE TAB* 5 MG PO SCH (09:29)
[2018-09-23] MEDS: Tamsulosin CAP* 0.4 MG PO SCH ×2 (09:29→20:30)
[2018-09-23] MEDS: XARELTO 2.5 MG PO SCH ×2 (09:29→20:31)
[2018-09-23] MEDS: Hydroxychloroquine TAB* 200 MG PO SCH (09:29)
[2018-09-23] MEDS ORDERED: Magnesium Sulfate 2 GM IV* 2 GM/50 ML BAG IVPB ONE (10:10)
[2018-09-23] MEDS: Potassium Chlor TAB* 20 MEQ TAB.ER PO SCH ×3 (11:08→20:30)
[2018-09-23] MEDS: oxyCODONE/Acetamin 5/325 MG* TAB PO PRN (17:17)
[2018-09-23] MEDS: Cetirizine* 10 MG TAB PO SCH (17:55)
[2018-09-23] MEDS: Latanoprost 0.005%* 2.5 ml BTL BOTH EYES SCH (20:30)
[2018-09-23] MEDS ORDERED: Loperamide CAP* 2 MG PO PRN (20:51)
[2018-09-24] MEDS: ZOSYN 3.375 GM Q8H per EXTENDED INFUSION IVPB SCH ×6 (02:55→17:56)
[2018-09-24] MEDS: HYDROmorphone INJ1* 1 MG/ML SYRINGE IV PRN ×5 (03:11→20:09)
[2018-09-24 05:56] LABS: ABS Basophils 0 10^3/ul (0-0.2); ABS Eosinophils 0 10^3/ul (0-0.6); ABS Lymphocytes 1.2 10^3/ul (1.0-4.8); ABS Monocytes 0.8 10^3/ul (0-0.8); ABS Neutrophils 9.4 10^3/ul (1.5-7.7); ABS Nucleated RBC 0 10^3/ul; Eosinophil % 0.4 %; Hematocrit 30 % (42-52); Hemoglobin 10.3 g/dl (14.0-18.0); Lymphocyte % 10.7 %; Mean Corpuscular HGB Conc 34 g/dl (31-36); Mean Corpuscular Hemoglobin 30 pg (27-31); Mean Corpuscular Volume 88 fL (80-94); Mean Platelet Volume 6.1 fL (7.4-10.4); Nucleated Red Blood Cells % 0; Platelet Count 198 10^3/ul (150-450); Red Blood Count 3.44 10^6/ul (4.00-5.40); Red Cell Distribution Width 15 % (10.5-15); White Blood Count 11.5 10^3/ul (3.5-10.8)
[2018-09-24 06:12] LABS: Albumin 2.6 g/dL (3.2-5.2); Albumin/Globulin Ratio 1.2 (1-3); BUN/Creatinine Ratio 12.2 (8-20); C Reactive Protein 167.7 mg/L (<8.01); Calcium 7.7 mg/dL (8.6-10.3); Globulin 2.1 g/dL (2-4); Magnesium 2.1 mg/dL (1.9-2.7); Phosphorus 1.9 mg/dL (2.5-5.0); Potassium 3.6 mmol/L (3.5-5.0); Total Bilirubin 0.8 mg/dL (0.2-1.0); Total Protein 4.7 g/dL (6.4-8.9)
[2018-09-24] MEDS: fentaNYL Patch Check Q Shift 1 NOTE FOLLOW UP SCH ×2 (07:19→19:11)
[2018-09-24] MEDS: Omeprazole CAP* 20 MG PO SCH (08:28)
[2018-09-24] MEDS: Finasteride TAB* 5 MG PO SCH (08:29)
[2018-09-24] MEDS: levETIRAcetam TAB* 500 MG PO SCH ×3 (08:29→20:13)
[2018-09-24] MEDS: Gabapentin CAP(*) 300 MG PO SCH ×4 (08:29→20:13)
[2018-09-24] MEDS: Aspirin EC TAB* 81 MG TAB.EC PO SCH (08:29)
[2018-09-24] MEDS: Tamsulosin CAP* 0.4 MG PO SCH ×2 (08:29→20:13)
[2018-09-24] MEDS: Atorvastatin* 40 MG TAB PO SCH (08:29)
[2018-09-24] MEDS: Potassium Chlor TAB* 20 MEQ TAB.ER PO SCH ×3 (08:29→20:13)
[2018-09-24] MEDS: XARELTO 2.5 MG PO SCH ×2 (08:30→20:14)
[2018-09-24] MEDS: predniSONE TAB* 5 MG PO SCH (08:30)
[2018-09-24] MEDS: Hydroxychloroquine TAB* 200 MG PO SCH (08:30)
[2018-09-24] MEDS ORDERED: Furosemide IV* 10 MG/ML 2 ML VIAL (20 MG) IV ONE (09:14)
[2018-09-24] MEDS: oxyCODONE/Acetamin 5/325 MG* TAB PO PRN ×2 (10:38→15:24)
[2018-09-24] MEDS: Potassium & Sodium Phos 250MG* = 1 PACKET PO SCH ×3 (10:39→20:13)
[2018-09-24] MEDS: Cetirizine* 10 MG TAB PO SCH (17:57)
[2018-09-24] MEDS: Acetaminophen TAB* 325 MG PO PRN (18:20)
[2018-09-24] MEDS ORDERED: Vancomycin per Pharmacy* NOTE FOLLOW UP PRN (18:32)
[2018-09-24] MEDS ORDERED: Vancomycin(*) 1,000 MG in NS 0.9% 250 ML* 250 ML IVPB ONE (19:00)
[2018-09-24] MEDS: Latanoprost 0.005%* 2.5 ml BTL BOTH EYES SCH (20:14)
[2018-09-24 20:17] LABS: Urine Appearance Clear; Urine Bilirubin Negative (Negative); Urine Blood Negative (Negative); Urine Color Yellow; Urine Glucose Negative (Negative); Urine Ketones Negative (Negative); Urine Nitrite Negative (Negative); Urine Protein Negative (Negative); Urine Specific Gravity 1.015 (1.010-1.030); Urine Urobilinogen Negative (Negative)
[2018-09-24] MEDS ORDERED: NS 0.9% 1000 ML* 1,000 ML IV ONE (20:45)
[2018-09-24] MEDS ORDERED: NS 0.9% 500 ML* 500 ML IV ONE (21:55)
[2018-09-24] MEDS ORDERED: Hydrocortisone INJ* 100 MG VIAL IV ONE (22:55)
[2018-09-24] MEDS ORDERED: Hydrocortisone INJ* 100 MG VIAL ONE (22:59)
[2018-09-24] MEDS ORDERED: Ketorolac INJ* 15 MG/ML 1 ML VIAL IV PUSH PRN (23:10)
[2018-09-24] MEDS ORDERED: Ketorolac INJ* 15 MG/ML 1 ML VIAL ONE (23:14)
[2018-09-24] MEDS ORDERED: Cefepime 2 GM in Dextrose(*) 2 GM/50 ML BAG IV ONE (23:37)
--- NOTE | 2018-09-24 23:40 | PN ---
Hospitalist Progress Note Date of Service: 09/24/18 code status full transfer note to icu as per pcp Dr Castillo's request d/w and explained to at bedside this is a 80 yr old wm with hx of pvd and multiple other medical problems but now admitted for the lle cellulits last sunday as per pcp. pt was getting zosyn for his cellulitis of left leg since ad. staff called pcp reg pt's soft sbp and worsening mental status. his sbp 99/51 hr 66 rr 21-28 but sat 100 percent but rectal temp is 102.4. pt was arousable with voice and sternal knob but would last only for sec. does not know where he is but follows commands to breathe for lung exam and raise his ue b/l when asked to. repeat blood culture were done. lactic acid is 2.4---> pcp wanted pt to be transferred to icu for close monitering and will sign out to icu dr in am for f/u as well. stat cbc/cmp/ ammonia/lactic/trop ordered. head ct also ordered ( ok with pcp who knows his baseline ms ) pt currently is on zosyn ( since last sunday ) and vanco ( just started today ) for his lle cellulitis. wound cx 08/2018 showed staph aureas and psudomonas ---> pcp agreed to change zosyn to cefepime while waiting for repeat blood cx result. pt currently has no open wound to be cultured from. vital 99/51 21-28 hr 66 tmax 102.4 sat 100 percent general in mid distress heart s1 s2 rrr lung not tachypenic lung fileds b/l decreased but no clear wheezing or rales heard abd ventral hernia soft nt ext unable to raise b/l le, left distal leg 2 inches above ankle is very warm/ erythematous/edematous neuro pt is arousable when called his name and with sternal rub but only lasts for secs. can raise his upper exts and breathe for lung exam otherwise went back to sleep unable to further eval due to his ms ekg pending labs pending a/p 1 severe sepsis due to his left lower ext cellulitis - blood cx redrawn - moniter cbc and lactic acid trend - changed zosyn to cefepime but continue vanco - pcp says she will call id in am 2 mental status change could be related to problem number 1 - head ct to r/o any bleed - ck ammonia - tele with josue -npo except meds for now 3 hypotension with hx of htn - ns 125 cc/hr he had stress test done within one yr neg ---> did not see echo though ? echo in am will need to ask pcp reg this - will use hydrodrotisone 100 mg ivp q8 ( hold oral prednisone ) 4 seizure hx does not see he is on any seizure meds except neurontin which could be for his limb pain - seizure precaution - ? neuro eval will need to ask pcp 5 sle cutaneous on hydroquinone and prednisone 7.5 mg daily for pmr - one dose of hydrocotisone 100 mg ordered by pcp will ordered for two more doses until pcp can come to eval 6 dvt on xarelto total critical care time 45 min
[2018-09-24] MEDS ORDERED: NS 0.9% 1000 ML* 1,000 ML IV SCH (23:45)
[2018-09-25 00:43] LABS: Albumin 2.5 g/dL (3.2-5.2); Albumin/Globulin Ratio 1.2 (1-3); BUN/Creatinine Ratio 12.7 (8-20); EGFR Non-African American 94.6 (>60); Globulin 2.1 g/dL (2-4); Magnesium 1.6 mg/dL (1.9-2.7); Phosphorus 2.1 mg/dL (2.5-5.0); Total Protein 4.6 g/dL (6.4-8.9)
[2018-09-25] MEDS ORDERED: Acetaminophen SUPP* 650 MG SUPP PR PRN (00:50)
[2018-09-25 01:54] LABS: ABS Basophils 0 10^3/ul (0-0.2); ABS Eosinophils 0 10^3/ul (0-0.6); ABS Lymphocytes 0.3 10^3/ul (1.0-4.8); ABS Monocytes 0.5 10^3/ul (0-0.8); ABS Neutrophils 14.1 10^3/ul (1.5-7.7); ABS Nucleated RBC 0 10^3/ul; Eosinophil % 0 %; Hematocrit 29 % (42-52); Hemoglobin 9.5 g/dl (14.0-18.0); Mean Corpuscular HGB Conc 33 g/dl (31-36); Mean Corpuscular Hemoglobin 29 pg (27-31); Mean Corpuscular Volume 88 fL (80-94); Mean Platelet Volume 6.5 fL (7.4-10.4); Nucleated Red Blood Cells % 0; Platelet Count 169 10^3/ul (150-450); Red Blood Count 3.26 10^6/ul (4.00-5.40); Red Cell Distribution Width 15 % (10.5-15)
[2018-09-25 02:01] LABS: Activated Partial Thrombo Time 31.2 seconds (26.0-36.3); INR 1.25 (0.77-1.02)
[2018-09-25 05:55] LABS: ABS Basophils 0.1 10^3/ul (0-0.2); ABS Eosinophils 0 10^3/ul (0-0.6); ABS Lymphocytes 0.3 10^3/ul (1.0-4.8); ABS Monocytes 0.5 10^3/ul (0-0.8); ABS Neutrophils 14.3 10^3/ul (1.5-7.7); ABS Nucleated RBC 0 10^3/ul; Corrected Retic Count 0.5 % (0.5-1.5); Eosinophil % 0 %; Hematocrit 29 % (42-52); Hematocrit for Retic CNT 29 % (42-52); Hemoglobin 9.7 g/dl (14.0-18.0); Immature Retic Fraction 0.37; Lymphocyte % 2.3 %; Mean Corpuscular HGB Conc 33 g/dl (31-36); Mean Corpuscular Hemoglobin 29 pg (27-31); Mean Corpuscular Volume 88 fL (80-94); Nucleated Red Blood Cells % 0; Platelet Count 178 10^3/ul (150-450); RBC Retic Count 3.31 10^6/ul (4.6-6.2); Red Blood Count 3.31 10^6/ul (4.00-5.40); Red Cell Distribution Width 15 % (10.5-15); White Blood Count 15.3 10^3/ul (3.5-10.8)
[2018-09-25] MEDS ORDERED: Heparin VIAL(*) 5000 UNITS/ML VIAL (FIVE THOUSAND) SUBCUT SCH (06:00)
[2018-09-25] MEDS ORDERED: Hydrocortisone INJ* 100 MG VIAL IV SCH (06:00)
[2018-09-25 06:14] LABS: Albumin 2.3 g/dL (3.2-5.2); Albumin/Globulin Ratio 1.2 (1-3); BUN/Creatinine Ratio 13.9 (8-20); C Reactive Protein 165.89 mg/L (<8.01); EGFR Non-African American 105.3 (>60); Globulin 1.9 g/dL (2-4); Potassium 4.3 mmol/L (3.5-5.0); Total Protein 4.2 g/dL (6.4-8.9)
[2018-09-25] MEDS: fentaNYL Patch Check Q Shift 1 NOTE FOLLOW UP SCH ×3 (07:38→19:58)
[2018-09-25] MEDS: Potassium & Sodium Phos 250MG* = 1 PACKET PO SCH ×3 (08:20→20:54)
[2018-09-25] MEDS: Gabapentin CAP(*) 300 MG PO SCH ×4 (08:20→21:43)
[2018-09-25] MEDS: Atorvastatin* 40 MG TAB PO SCH (08:20)
[2018-09-25] MEDS: Aspirin EC TAB* 81 MG TAB.EC PO SCH (08:20)
[2018-09-25] MEDS: Potassium Chlor TAB* 20 MEQ TAB.ER PO SCH ×3 (08:20→20:55)
[2018-09-25] MEDS: levETIRAcetam TAB* 500 MG PO SCH ×3 (08:20→20:55)
[2018-09-25] MEDS: Finasteride TAB* 5 MG PO SCH (08:20)
[2018-09-25] MEDS: Tamsulosin CAP* 0.4 MG PO SCH ×2 (08:20→20:55)
[2018-09-25] MEDS: Omeprazole CAP* 20 MG PO SCH (08:20)
[2018-09-25] MEDS: XARELTO 2.5 MG PO SCH ×2 (09:12→21:03)
[2018-09-25] MEDS: Hydroxychloroquine TAB* 200 MG PO SCH (09:13)
[2018-09-25 10:32] LABS: EGFR Non-African American 116.4 (>60)
[2018-09-25] MEDS: Vancomycin(*) 1,000 MG in NS 0.9% 250 ML* 250 ML IVPB SCH ×2 (10:37→21:54)
--- NOTE | 2018-09-25 10:37 | CONS ---
CRITICAL CARE CONSULTATION REPORT: DATE OF CONSULT: 09/25/18 CONSULTATION REQUESTED BY: Dr. May Castillo. REASON FOR CONSULTATION: Evaluation of hypertension and altered mental status. HISTORY OF PRESENT ILLNESS: The patient is a 78-year-old male with history of peripheral vascular disease; hypertension; BPH; ankylosing spondylitis versus polymyalgia, on chronic steroids; osteoporosis; recently diagnosed with cutaneous lupus and was started on hydroxychloroquine. Patient also recently started with seizure disorder and started on Keppra. He has been on chronic steroids for adrenal insufficiency. Patient was hospitalized for evaluation of worsening lower extremity pain and swelling. Patient recently having issues with lower extremity pain and nonhealing wounds secondary to peripheral vascular disease. He was found to have widespread calcified atherosclerosis and narrowing. He was admitted 08/16/18 for interventional procedure. He underwent right femoral arteriotomy and balloon angioplasty of the right LAQUITA, peroneal artery and could not have revascularization of right LAQUITA and pedal loop. He subsequently underwent that procedure in [place]. He was seen by Dr. Castillo for evaluation of worsening pain and was admitted to the hospital for further evaluation. Patient was transferred to ICU last night after being found to have altered mental status and hypotension. Patient's blood pressure systolic was around 99 with diastolic of 51, heart rate of 66 with rectal temperature of 102.4. Patient was arousable to voice and painful stimuli at that time. His lactic acid came out to be elevated 2.4. Given concern with sepsis and septic encephalopathy, he was transferred to ICU for close monitoring. Patient was initiated on IV hydration. Septic workup was repeated. His antibiotics were changed from Zosyn to cefepime and he was already on vancomycin. Repeat lactic acid came out to be within normal limits. He has received IV fluids at 125 cc/hour and was also changed from prednisone to hydrocortisone. Patient subsequently improved. His blood pressure has been systolic 130s this morning. His heart rate also improved to 60s. He is alert, awake, oriented x3 this morning. He was not confused or lethargic anymore. He was initiated on 3 L O2 supplementation, which was titrated down. He had a Edwards placed for monitoring of output. UA was sent, which was negative. He was noted to have elevated white count trending up since admission, which could have been from the steroid itself. His hemoglobin most likely is dilutional, however, has been slowly trending down with current value of 9.7. Platelets within normal limits. Sodium 130, blood glucose slightly elevated at 151. Troponin initial value of 0.05. EKG showed sinus rhythm with no acute ST-T wave changes. Repeat troponin has been ordered and is pending at this time. His ammonia was slightly elevated at 55. He was adequately hydrated. PAST MEDICAL HISTORY: 1. Hypertension. 2. Peripheral vascular disease. 3. BPH. 4. Ankylosing spondylitis. 5. Osteoporosis. 6. Cutaneous lupus, on hydroxychloroquine. 7. Seizure disorder. 8. Adrenal insufficiency. 9 Lumbar radiculopathy. PAST SURGICAL HISTORY: 1. Rotator cuff repair. 2. Bilateral cataract extractions. 3. Elbow release. 4. Tonsillectomy. 5. Hydrocele repair. ALLERGIES: SULFA, CLINDAMYCIN, HYDROXYCHLOROQUINE, METHOTREXATE, AZATHIOPRINE and GLUCOSAMINE. MEDICATIONS: 1. OxyContin. 2. Triple antibiotic. 3. Furosemide. 4. Percocet. 5. Prednisone. 6. Finasteride. 7. Risedronate. 8. Hydroxychloroquine. 9. Keppra. 10. Pantoprazole. 11. Tamsulosin. 12. Loratadine. 13. Travatan. 14. Multivitamin. 15. Calcium. 16. Baby aspirin. 17. Plavix. SOCIAL HISTORY: Former smoker. No alcohol or drug abuse. FAMILY HISTORY: Noncontributory. REVIEW OF SYSTEMS: All 14-systems reviewed as per HPI. PHYSICAL EXAMINATION: Gen: Pt in NAD HEENT: PERRLA, No JVD Lungs: Good a/e b/l, decreased at bases, no wheeze CVS: S1, S2+, regular Abd: Obese, BS+ Ext: Chronic skin changes in LE, cellulitis+, ulcers+ Neuro: Alert, awake and oriented this am Skin: Chronic changes in LE Labs: Hb/Hct: 9.7/29, WBC count- 15.3, Lactate- intial value was 2.4, that normalized. Sodium 130, pot- normal. NH3 elevated. LFTs- Normal. Troponin- slightly elevated, rpt value is pending EKG: No acute changes CT brain: No acute changes CXR: Basal atelectasis versus infiltrates I/R: 78 y o obese m with h/o severe PVD, s/p IR procedure recently admitted for management of LE pain, cellulitis, with AMS last night, was transferred to ICU 1. AMS sec to septic encephalopathy versus pain meds and sun downing 2. Sepsis sec to LE cellulitis 3. Hypotension sec to sepsis Pt responded to fluid resuscitation, lactic acid normalized Hypotension resolved, hemodynamically stable this am IV fluids d/jaylin Diet ordered Pain controlled with Fentanyl patch and Toradol Ammonia elevated however with resolution of confusion Tropinin slightly elevated without acute changes in EKG, rpt troponins pending Pt is alert, awake this am Pt stable to be transferred to regular medical floor under Dr Castillo`s service D/w Dr Castillo [id number]/[facility] #: [id number] [facility]
[2018-09-25] MEDS: HYDROmorphone INJ1* 1 MG/ML SYRINGE IV PRN ×3 (11:05→21:44)
[2018-09-25] MEDS ORDERED: Magnesium Sulfate 2 GM IV* 2 GM/50 ML BAG IVPB ONE (12:45)
[2018-09-25] MEDS: Cefepime 1 GM in Dextrose(*) 1 GM/50 ML BAG IV SCH ×2 (12:49→23:50)
[2018-09-25 17:16] LABS: Urine Appearance Turbid; Urine Bacteria Absent (Absent); Urine Bilirubin Negative (Negative); Urine Blood 3+ (Negative); Urine Color Amber; Urine Glucose 1+(50 mg/dL) (Negative); Urine Ketones Trace (Negative); Urine Nitrite Negative (Negative); Urine Protein 2+(100 mg/dL) (Negative); Urine Red Blood Cell Absent (Absent); Urine Specific Gravity 1.029 (1.010-1.030); Urine Urobilinogen Negative (Negative); Urine White Blood Cell Absent (Absent)
[2018-09-25] MEDS: fentaNYL PATCH 12 MCG/HR TRANSDERM SCH (19:31)
[2018-09-25] MEDS: Hydrocortisone INJ* 100 MG VIAL IV SCH (19:45)
[2018-09-25] MEDS: Cetirizine* 10 MG TAB PO SCH (19:45)
[2018-09-25] MEDS: Ketorolac INJ* 15 MG/ML 1 ML VIAL IV PUSH PRN (19:46)
[2018-09-25] MEDS: Latanoprost 0.005%* 2.5 ml BTL BOTH EYES SCH (20:55)
[2018-09-25] MEDS: oxyCODONE/Acetamin 5/325 MG* TAB PO PRN (21:43)
[2018-09-26] MEDS: Hydrocortisone INJ* 100 MG VIAL IV SCH ×2 (05:43→14:51)
[2018-09-26] MEDS: oxyCODONE/Acetamin 5/325 MG* TAB PO PRN ×3 (06:04→21:08)
[2018-09-26 06:05] LABS: ABS Basophils 0 10^3/ul (0-0.2); ABS Eosinophils 0 10^3/ul (0-0.6); ABS Lymphocytes 0.5 10^3/ul (1.0-4.8); ABS Monocytes 0.6 10^3/ul (0-0.8); ABS Neutrophils 9.9 10^3/ul (1.5-7.7); ABS Nucleated RBC 0 10^3/ul; Eosinophil % 0 %; Hematocrit 29 % (42-52); Hemoglobin 9.7 g/dl (14.0-18.0); Lymphocyte % 4.7 %; Mean Corpuscular HGB Conc 34 g/dl (31-36); Mean Corpuscular Hemoglobin 29 pg (27-31); Mean Corpuscular Volume 86 fL (80-94); Nucleated Red Blood Cells % 0; Platelet Count 190 10^3/ul (150-450); Red Blood Count 3.33 10^6/ul (4.00-5.40); Red Cell Distribution Width 15 % (10.5-15)
[2018-09-26 06:22] LABS: Albumin 2.5 g/dL (3.2-5.2); C Reactive Protein 147.36 mg/L (<8.01); Calcium 7.4 mg/dL (8.6-10.3); EGFR Non-African American 135.2 (>60); Globulin 2.4 g/dL (2-4); Magnesium 2.3 mg/dL (1.9-2.7); Potassium 4.6 mmol/L (3.5-5.0); Total Bilirubin 0.5 mg/dL (0.2-1.0); Total Protein 4.9 g/dL (6.4-8.9)
[2018-09-26] MEDS: fentaNYL Patch Check Q Shift 1 NOTE FOLLOW UP SCH ×2 (07:26→21:22)
[2018-09-26] MEDS: XARELTO 2.5 MG PO SCH ×2 (07:57→21:02)
[2018-09-26] MEDS: Hydroxychloroquine TAB* 200 MG PO SCH (07:57)
[2018-09-26] MEDS: Tamsulosin CAP* 0.4 MG PO SCH ×2 (07:57→21:02)
[2018-09-26] MEDS: Atorvastatin* 40 MG TAB PO SCH (07:57)
[2018-09-26] MEDS: Aspirin EC TAB* 81 MG TAB.EC PO SCH (07:58)
[2018-09-26] MEDS: Omeprazole CAP* 20 MG PO SCH (07:58)
[2018-09-26] MEDS: Gabapentin CAP(*) 300 MG PO SCH ×4 (07:58→21:01)
[2018-09-26] MEDS: levETIRAcetam TAB* 500 MG PO SCH ×3 (07:58→21:00)
[2018-09-26] MEDS: Finasteride TAB* 5 MG PO SCH (07:58)
[2018-09-26] MEDS: Potassium & Sodium Phos 250MG* = 1 PACKET PO SCH ×3 (07:59→20:59)
[2018-09-26] MEDS: Potassium Chlor TAB* 20 MEQ TAB.ER PO SCH ×2 (07:59→12:42)
[2018-09-26] MEDS: Ketorolac INJ* 15 MG/ML 1 ML VIAL IV PUSH PRN (08:06)
[2018-09-26] MEDS ORDERED: Vancomycin Trough Check NOTE FOLLOW UP ONE (08:30)
[2018-09-26] MEDS: Vancomycin(*) 1,000 MG in NS 0.9% 250 ML* 250 ML IVPB SCH (10:31)
[2018-09-26] MEDS: Cefepime 1 GM in Dextrose(*) 1 GM/50 ML BAG IV SCH ×2 (12:42→22:38)
[2018-09-26] MEDS ORDERED: Hydrocortisone INJ* 100 MG VIAL IV SCH (13:12)
[2018-09-26] MEDS ORDERED: oxyCODONE/Acetamin 5/325 MG* TAB PO PRN (13:15)
[2018-09-26] MEDS ORDERED: Furosemide TAB* 20 MG PO ONE (13:19)
[2018-09-26] MEDS: Cetirizine* 10 MG TAB PO SCH (17:02)
[2018-09-26] MEDS: Vancomycin(*) 1,250 MG in NS 0.9% 250 ML* 250 ML IVPB SCH (20:59)
[2018-09-26] MEDS: Calcium Citrate TAB* 200 MG PO SCH (21:00)
[2018-09-26] MEDS: Latanoprost 0.005%* 2.5 ml BTL BOTH EYES SCH (21:02)
[2018-09-26] MEDS: HYDROmorphone INJ1* 1 MG/ML SYRINGE IV PRN (21:09)
[2018-09-27] MEDS: Hydrocortisone INJ* 100 MG VIAL IV SCH ×2 (01:42→13:21)
[2018-09-27] MEDS: oxyCODONE/Acetamin 5/325 MG* TAB PO PRN ×3 (01:43→12:00)
[2018-09-27 06:33] LABS: ABS Basophils 0 10^3/ul (0-0.2); ABS Eosinophils 0 10^3/ul (0-0.6); ABS Lymphocytes 0.6 10^3/ul (1.0-4.8); ABS Monocytes 0.5 10^3/ul (0-0.8); ABS Neutrophils 9.5 10^3/ul (1.5-7.7); ABS Nucleated RBC 0 10^3/ul; Eosinophil % 0 %; Hematocrit 28 % (42-52); Hemoglobin 9.7 g/dl (14.0-18.0); Lymphocyte % 5.4 %; Mean Corpuscular HGB Conc 35 g/dl (31-36); Mean Corpuscular Hemoglobin 30 pg (27-31); Mean Corpuscular Volume 85 fL (80-94); Mean Platelet Volume 7.3 fL (7.4-10.4); Nucleated Red Blood Cells % 0.1; Platelet Count 225 10^3/ul (150-450); Red Blood Count 3.26 10^6/ul (4.00-5.40); Red Cell Distribution Width 15 % (10.5-15); White Blood Count 10.6 10^3/ul (3.5-10.8)
[2018-09-27] MEDS: HYDROmorphone INJ1* 1 MG/ML SYRINGE IV PRN ×3 (06:54→20:57)
[2018-09-27 06:55] LABS: BUN/Creatinine Ratio 23.5 (8-20); C Reactive Protein 64.8 mg/L (<8.01); Calcium 7.4 mg/dL (8.6-10.3); EGFR Non-African American 156.8 (>60); Potassium 3.8 mmol/L (3.5-5.0)
[2018-09-27] MEDS: Vancomycin(*) 1,250 MG in NS 0.9% 250 ML* 250 ML IVPB SCH ×2 (07:31→20:38)
[2018-09-27] MEDS: Gabapentin CAP(*) 300 MG PO SCH ×4 (07:39→20:46)
[2018-09-27] MEDS: Finasteride TAB* 5 MG PO SCH (07:39)
[2018-09-27] MEDS: Hydroxychloroquine TAB* 200 MG PO SCH (07:39)
[2018-09-27] MEDS: Atorvastatin* 40 MG TAB PO SCH (07:40)
[2018-09-27] MEDS: XARELTO 2.5 MG PO SCH ×2 (07:40→20:48)
[2018-09-27] MEDS: Calcium Citrate TAB* 200 MG PO SCH ×2 (07:40→20:49)
[2018-09-27] MEDS: levETIRAcetam TAB* 500 MG PO SCH ×3 (07:40→20:45)
[2018-09-27] MEDS: Omeprazole CAP* 20 MG PO SCH (07:40)
[2018-09-27] MEDS: Aspirin EC TAB* 81 MG TAB.EC PO SCH (07:40)
[2018-09-27] MEDS: Tamsulosin CAP* 0.4 MG PO SCH ×2 (07:40→20:46)
[2018-09-27] MEDS: Potassium & Sodium Phos 250MG* = 1 PACKET PO SCH ×4 (07:40→20:44)
[2018-09-27] MEDS: fentaNYL Patch Check Q Shift 1 NOTE FOLLOW UP SCH ×2 (07:43→18:57)
[2018-09-27] MEDS: Cefepime 1 GM in Dextrose(*) 1 GM/50 ML BAG IV SCH ×2 (11:54→23:26)
[2018-09-27] MEDS ORDERED: Furosemide IV* 10 MG/ML 2 ML VIAL (20 MG) IV ONE (13:50)
[2018-09-27] MEDS: Cetirizine* 10 MG TAB PO SCH (16:54)
[2018-09-27] MEDS: Latanoprost 0.005%* 2.5 ml BTL BOTH EYES SCH (20:50)
[2018-09-28] MEDS: HYDROmorphone INJ1* 1 MG/ML SYRINGE IV PRN ×2 (05:44→20:43)
[2018-09-28] MEDS: XARELTO 2.5 MG PO SCH ×2 (07:30→20:54)
[2018-09-28] MEDS: Potassium & Sodium Phos 250MG* = 1 PACKET PO SCH ×4 (07:30→20:43)
[2018-09-28] MEDS ORDERED: Vancomycin Trough Check NOTE FOLLOW UP ONE (07:30)
[2018-09-28] MEDS: Calcium Citrate TAB* 200 MG PO SCH ×2 (07:30→20:52)
[2018-09-28] MEDS: Atorvastatin* 40 MG TAB PO SCH (07:31)
[2018-09-28] MEDS: Hydroxychloroquine TAB* 200 MG PO SCH (07:31)
[2018-09-28] MEDS: Gabapentin CAP(*) 300 MG PO SCH ×4 (07:31→20:51)
[2018-09-28] MEDS: oxyCODONE/Acetamin 5/325 MG* TAB PO PRN ×3 (07:31→18:16)
[2018-09-28] MEDS: Omeprazole CAP* 20 MG PO SCH (07:32)
[2018-09-28] MEDS: Tamsulosin CAP* 0.4 MG PO SCH ×2 (07:32→20:51)
[2018-09-28] MEDS: Finasteride TAB* 5 MG PO SCH (07:32)
[2018-09-28] MEDS: levETIRAcetam TAB* 500 MG PO SCH ×2 (07:32→20:52)
[2018-09-28] MEDS: predniSONE TAB* 10 MG PO SCH (07:32)
[2018-09-28] MEDS: Aspirin EC TAB* 81 MG TAB.EC PO SCH (07:32)
[2018-09-28] MEDS: fentaNYL Patch Check Q Shift 1 NOTE FOLLOW UP SCH ×2 (07:36→18:19)
[2018-09-28 08:19] LABS: BUN/Creatinine Ratio 18.5 (8-20); C Reactive Protein 33.05 mg/L (<8.01); Calcium 8.3 mg/dL (8.6-10.3); EGFR Non-African American 146.8 (>60); Phosphorus 2.5 mg/dL (2.5-5.0); Potassium 3.1 mmol/L (3.5-5.0)
[2018-09-28 08:20] LABS: ABS Basophils 0 10^3/ul (0-0.2); ABS Eosinophils 0.1 10^3/ul (0-0.6); ABS Lymphocytes 1.5 10^3/ul (1.0-4.8); ABS Monocytes 1.1 10^3/ul (0-0.8); ABS Neutrophils 7.5 10^3/ul (1.5-7.7); ABS Nucleated RBC 0 10^3/ul; Eosinophil % 1.1 %; Hematocrit 33 % (42-52); Hemoglobin 11.2 g/dl (14.0-18.0); Lymphocyte % 14.9 %; Mean Corpuscular HGB Conc 34 g/dl (31-36); Mean Corpuscular Hemoglobin 29 pg (27-31); Mean Corpuscular Volume 86 fL (80-94); Mean Platelet Volume 6.8 fL (7.4-10.4); Nucleated Red Blood Cells % 0.1; Platelet Count 294 10^3/ul (150-450); Red Blood Count 3.83 10^6/ul (4.00-5.40); Red Cell Distribution Width 15 % (10.5-15); White Blood Count 10.3 10^3/ul (3.5-10.8)
[2018-09-28] MEDS: Vancomycin(*) 1,250 MG in NS 0.9% 250 ML* 250 ML IVPB SCH ×2 (08:57→20:07)
[2018-09-28] MEDS ORDERED: Furosemide IV* 10 MG/ML 2 ML VIAL (20 MG) IV ONE (09:52)
[2018-09-28] MEDS: Cefepime 1 GM in Dextrose(*) 1 GM/50 ML BAG IV SCH (11:06)
[2018-09-28] MEDS: Potassium Chlor TAB* 20 MEQ TAB.ER PO SCH ×3 (11:06→20:54)
[2018-09-28] MEDS: fentaNYL PATCH 12 MCG/HR TRANSDERM SCH (16:47)
[2018-09-28] MEDS: Cetirizine* 10 MG TAB PO SCH (16:48)
[2018-09-28] MEDS: Latanoprost 0.005%* 2.5 ml BTL BOTH EYES SCH (20:56)
[2018-09-29] MEDS: Cefepime 1 GM in Dextrose(*) 1 GM/50 ML BAG IV SCH ×2 (00:43→13:12)
[2018-09-29] MEDS: HYDROmorphone INJ1* 1 MG/ML SYRINGE IV PRN ×2 (03:32→10:53)
[2018-09-29] MEDS: fentaNYL Patch Check Q Shift 1 NOTE FOLLOW UP SCH ×2 (06:46→19:08)
[2018-09-29 07:51] LABS: Hematocrit 34 % (42-52); Hemoglobin 11.4 g/dl (14.0-18.0); Mean Corpuscular HGB Conc 34 g/dl (31-36); Mean Corpuscular Hemoglobin 29 pg (27-31); Mean Corpuscular Volume 86 fL (80-94); Mean Platelet Volume 6.8 fL (7.4-10.4); Red Blood Count 3.96 10^6/ul (4.00-5.40); Red Cell Distribution Width 15 % (10.5-15); White Blood Count 10.4 10^3/ul (3.5-10.8)
[2018-09-29 07:53] LABS: ABS Basophils 0 10^3/ul (0-0.2); ABS Eosinophils 0.3 10^3/ul (0-0.6); ABS Lymphocytes 1.7 10^3/ul (1.0-4.8); ABS Neutrophils 7.3 10^3/ul (1.5-7.7); ABS Nucleated RBC 0 10^3/ul; Eosinophil % 2.8 %; Lymphocyte % 16.7 %; Nucleated Red Blood Cells % 0.1
[2018-09-29 08:00] LABS: BUN/Creatinine Ratio 16.9 (8-20); C Reactive Protein 41.76 mg/L (<8.01); Calcium 8.5 mg/dL (8.6-10.3); EGFR Non-African American 118.5 (>60); Potassium 3.7 mmol/L (3.5-5.0)
[2018-09-29 08:22] LABS: Immature Granulocytes 4 % (0-9); Lymphocytes % 24 %; Metamyelocytes % 1 % (0-2); Monocytes % 8 %; Myelocytes % 3 % (0-1); Neutrophil % 61 %; Variant Lymph % 1 % (0-6)
[2018-09-29] MEDS: Vancomycin(*) 1,250 MG in NS 0.9% 250 ML* 250 ML IVPB SCH ×2 (08:22→20:03)
[2018-09-29 08:25] LABS: Platelet Count 325 10^3/ul (150-450)
[2018-09-29 08:26] LABS: ABS Eosinophils 0.2 10^3/ul (0-0.6); ABS Neutrophils 6.8 10^3/ul (1.5-7.7)
[2018-09-29] MEDS: Atorvastatin* 40 MG TAB PO SCH (08:37)
[2018-09-29] MEDS: Hydroxychloroquine TAB* 200 MG PO SCH (08:37)
[2018-09-29] MEDS: Calcium Citrate TAB* 200 MG PO SCH ×2 (08:37→20:10)
[2018-09-29] MEDS: oxyCODONE/Acetamin 5/325 MG* TAB PO PRN ×4 (08:37→22:16)
[2018-09-29] MEDS: Omeprazole CAP* 20 MG PO SCH (08:37)
[2018-09-29] MEDS: Potassium & Sodium Phos 250MG* = 1 PACKET PO SCH ×4 (08:37→20:02)
[2018-09-29] MEDS: Aspirin EC TAB* 81 MG TAB.EC PO SCH (08:38)
[2018-09-29] MEDS: predniSONE TAB* 10 MG PO SCH (08:38)
[2018-09-29] MEDS: Gabapentin CAP(*) 300 MG PO SCH ×4 (08:38→20:15)
[2018-09-29] MEDS: Tamsulosin CAP* 0.4 MG PO SCH ×2 (08:38→20:13)
[2018-09-29] MEDS: levETIRAcetam TAB* 500 MG PO SCH ×3 (08:38→20:14)
[2018-09-29] MEDS: Potassium Chlor TAB* 20 MEQ TAB.ER PO SCH ×3 (08:38→20:13)
[2018-09-29] MEDS: XARELTO 2.5 MG PO SCH ×2 (08:38→20:15)
[2018-09-29] MEDS: Finasteride TAB* 5 MG PO SCH (08:38)
[2018-09-29] MEDS ORDERED: Iohexol 350* (CONTRAST) 500 ML MDV IV ONE (11:13)
[2018-09-29 11:39] LABS: BUN/Creatinine Ratio 16.9 (8-20); Calcium 8.3 mg/dL (8.6-10.3); Potassium 3.8 mmol/L (3.5-5.0)
[2018-09-29] MEDS: Cetirizine* 10 MG TAB PO SCH (17:39)
[2018-09-29] MEDS: Latanoprost 0.005%* 2.5 ml BTL BOTH EYES SCH (20:37)
[2018-09-30] MEDS: Cefepime 1 GM in Dextrose(*) 1 GM/50 ML BAG IV SCH ×3 (00:12→23:48)
[2018-09-30] MEDS: oxyCODONE/Acetamin 5/325 MG* TAB PO PRN ×4 (05:43→23:47)
[2018-09-30 07:10] LABS: Hematocrit 32 % (42-52); Hemoglobin 10.8 g/dl (14.0-18.0); Mean Corpuscular HGB Conc 35 g/dl (31-36); Mean Corpuscular Hemoglobin 30 pg (27-31); Mean Corpuscular Volume 86 fL (80-94); Mean Platelet Volume 6.7 fL (7.4-10.4); Platelet Count 316 10^3/ul (150-450); Red Blood Count 3.68 10^6/ul (4.00-5.40); Red Cell Distribution Width 15 % (10.5-15)
[2018-09-30] MEDS: fentaNYL Patch Check Q Shift 1 NOTE FOLLOW UP SCH ×2 (07:11→20:35)
[2018-09-30 07:23] LABS: C Reactive Protein 63.34 mg/L (<8.01)
[2018-09-30 07:37] LABS: ABS Basophils 0 10^3/ul (0-0.2); ABS Eosinophils 0.3 10^3/ul (0-0.6); ABS Lymphocytes 1.4 10^3/ul (1.0-4.8); ABS Monocytes 0.8 10^3/ul (0-0.8); ABS Neutrophils 4.4 10^3/ul (1.5-7.7); ABS Nucleated RBC 0 10^3/ul; Eosinophil % 3.8 %; Lymphocyte % 20.5 %; Nucleated Red Blood Cells % 0.1
[2018-09-30] MEDS: Vancomycin(*) 1,250 MG in NS 0.9% 250 ML* 250 ML IVPB SCH ×2 (09:28→20:21)
[2018-09-30 09:51] LABS: Magnesium 1.7 mg/dL (1.9-2.7); Phosphorus 3.7 mg/dL (2.5-5.0)
[2018-09-30] MEDS: Omeprazole CAP* 20 MG PO SCH (10:38)
[2018-09-30] MEDS: Atorvastatin* 40 MG TAB PO SCH (10:39)
[2018-09-30] MEDS: Finasteride TAB* 5 MG PO SCH (10:39)
[2018-09-30] MEDS: predniSONE TAB* 10 MG PO SCH (10:39)
[2018-09-30] MEDS: Hydroxychloroquine TAB* 200 MG PO SCH (10:39)
[2018-09-30] MEDS: Gabapentin CAP(*) 300 MG PO SCH ×4 (10:39→20:33)
[2018-09-30] MEDS: Calcium Citrate TAB* 200 MG PO SCH ×2 (10:39→20:20)
[2018-09-30] MEDS: Potassium & Sodium Phos 250MG* = 1 PACKET PO SCH ×4 (10:40→20:14)
[2018-09-30] MEDS: levETIRAcetam TAB* 500 MG PO SCH ×3 (10:40→20:21)
[2018-09-30] MEDS: Tamsulosin CAP* 0.4 MG PO SCH ×2 (10:40→20:20)
[2018-09-30] MEDS: Potassium Chlor TAB* 20 MEQ TAB.ER PO SCH ×3 (10:40→20:32)
[2018-09-30] MEDS: XARELTO 2.5 MG PO SCH ×2 (10:49→20:22)
[2018-09-30] MEDS: Aspirin EC TAB* 81 MG TAB.EC PO SCH (11:00)
[2018-09-30] MEDS: Cetirizine* 10 MG TAB PO SCH (18:01)
--- NOTE | 2018-09-30 18:36 | CONS ---
CONSULTATION REPORT: DATE OF CONSULT: 09/30/18 REQUESTING PHYSICIAN: Dr. May Castillo. CONSULTING SERVICE: Infectious Disease. REASON FOR CONSULT: Elevated C-reactive protein, left leg cellulitis. IMPRESSION: 1. Elevated C-reactive protein, it was 11 on admission. It had been as high as 160, down to 60 now. In the setting of recent left leg cellulitis, which is improving, a pulmonary process which could be an infectious pneumonia, although it is very mild by imaging and he does not have any particular pulmonary symptoms at this time. He also has a background of autoimmune disorders including possibly rheumatoid arthritis by his report as well as cutaneous lupus , which could be contributing to some extent. 2. Vascular disease, recent vascular intervention. 3. Seizure disorder. 4. Renal insufficiency due to chronic corticosteroids. RECOMMENDATIONS: He has had 6 days of vancomycin, cefepime; we will plan on 1 more day to complete 7 days of each and then stop antibiotics for his leg and his overall symptoms. I think it would be reasonable to check the C-reactive protein intermittently, but rely more on his overall symptoms as a guide for his antibiotic therapy. HISTORY OF PRESENT ILLNESS: This is a 78-year-old man with cutaneous lupus and chronic corticosteroid use, admitted with bilateral lower extremity edema. It seemed to have occurred shortly after having interventional procedure on the right foot. He had increasing redness, pain, swelling in each foot, worse on the left however. He has had some dry gangrene in the right first to third toes for the last few weeks. Here, he was treated with Zosyn with some improvement, but then developed change in mental status and hypotension and was transferred to the ICU, had fluid resuscitation and antibiotics were changed to vancomycin to Zosyn. He had a CT of the chest, abdomen, and pelvis yesterday that was unrevealing except for some faint patchy infiltrates at the bilateral lung bases. He has had no cough or trouble breathing. His oxygen saturation has been fine on room air. He has had some right groin pain with flexion of the hip, not worse with weightbearing. He has been up and walking around and overall that is improving. He had a few weeks ago vascular intervention through the right groin, but has not noticed any swelling, pain, redness, or bleeding in the groin. He is starting to feel more like an usual self as far as his activity and appetite. Both legs are less swollen and redness has resolved on the left. He has some pain in the areas of gangrene on the right. PAST MEDICAL HISTORY: 1. Peripheral vascular disease, status post right lower extremity vascular intervention. 2. Hypertension. 3. Benign prostatic hypertrophy. 4. Ankylosing spondylitis versus polymyalgia rheumatica, on chronic corticosteroids. 5. Osteoporosis. 6. Cutaneous lupus. 7. Seizure disorder. 8. Adrenal insufficiency. 9. Lumbar radiculopathy. 10. Status post right rotator cuff repair. 11. Status post bilateral cataract extractions. 12. Status post left rotator cuff repair. 13. Status post left elbow tendon release. 14. Status post tonsillectomy. 15. Status post left hydrocele repair. MEDICATIONS: 1. Tylenol. 2. Aspirin. 3. Lipitor. 4. Calcium. 5. Cetirizine. 6. Docusate. 7. Fentanyl patch. 8. Finasteride. 9. Gabapentin. 10. Plaquenil. 11. Keppra. 12. Loperamide. 13. Cefepime 1 g every 12 hours. 14. Potassium. 15. Prednisone 10 mg a day. 16. Senna. 17. Tamsulosin. 18. Vancomycin 1250 mg every 12 hours. ALLERGIES: SULFA caused rash, CLINDAMYCIN caused rash, PLAQUENIL, METHOTREXATE , AZATHIOPRINE, LOTENSIN, DYAZIDE, GLUCOSAMINE, FOSAMAX, CELEBREX. SOCIAL HISTORY: He lives outside of [place] with his . He has no travel other than to [place] for the vascular procedure. FAMILY HISTORY: No recurrent infections. REVIEW OF SYSTEMS: All are negative except as noted above to 14-point review. PHYSICAL EXAM: Vital Signs: Temperature 37, heart rate 50, respiratory rate 18 , blood pressure 143/52, oxygen saturation 96% on room air. In general, he is awake, not in distress. Neurologic: He is oriented x3. Follows all commands. Sensation is intact to light touch in both feet. HEENT: There is no conjunctival hemorrhage. Oropharynx without lesions. Neck is supple without mass. Lymph Nodes: There is no cervical, supraclavicular, inguinal, axillary, or epitrochlear lymphadenopathy. Heart: Regular rate and rhythm without murmurs, rubs, or gallops. Lungs are clear to auscultation bilaterally. Abdomen: Soft, nontender, nondistended. There are bowel sounds present. Skin : There is no rash or splinter hemorrhage. On the left lower leg, there are some 1 to 2 cm small areas of eschar without surrounding erythema. In the right first to third toes, the tips have dry gangrene. Musculoskeletal: There is no spine tenderness to palpation or joint synovitis. There is no right groin mass or tenderness. LABORATORY DATA: White blood cell count 7, hemoglobin 10, platelets 316. Creatinine 0.7. CRP 63 today, 41 yesterday, 33 on 09/28/18. Procalcitonin 1.8. Please see impression and recommendations outlined above. Thank you for asking me to see Mr. Tong in consultation. [id number]/[facility] #: [id number] DANA
[2018-09-30] MEDS: HYDROmorphone INJ1* 1 MG/ML SYRINGE IV SLOW PU PRN (20:32)
[2018-09-30] MEDS: Latanoprost 0.005%* 2.5 ml BTL BOTH EYES SCH (20:34)
[2018-10-01] MEDS: HYDROmorphone INJ1* 1 MG/ML SYRINGE IV SLOW PU PRN (04:35)
[2018-10-01] MEDS: oxyCODONE/Acetamin 5/325 MG* TAB PO PRN ×2 (06:38→12:10)
[2018-10-01] MEDS: XARELTO 2.5 MG PO SCH (07:44)
[2018-10-01] MEDS: Vancomycin(*) 1,250 MG in NS 0.9% 250 ML* 250 ML IVPB SCH (07:44)
[2018-10-01] MEDS: Gabapentin CAP(*) 300 MG PO SCH ×2 (07:46→12:11)
[2018-10-01] MEDS: levETIRAcetam TAB* 500 MG PO SCH ×2 (07:46→12:11)
[2018-10-01] MEDS: Tamsulosin CAP* 0.4 MG PO SCH (07:46)
[2018-10-01] MEDS: Omeprazole CAP* 20 MG PO SCH (07:46)
[2018-10-01] MEDS: predniSONE TAB* 10 MG PO SCH (07:46)
[2018-10-01] MEDS: Aspirin EC TAB* 81 MG TAB.EC PO SCH (07:46)
[2018-10-01] MEDS: Potassium Chlor TAB* 20 MEQ TAB.ER PO SCH (07:46)
[2018-10-01] MEDS: Hydroxychloroquine TAB* 200 MG PO SCH (07:47)
[2018-10-01] MEDS: Calcium Citrate TAB* 200 MG PO SCH (07:47)
[2018-10-01] MEDS: Finasteride TAB* 5 MG PO SCH (07:48)
[2018-10-01] MEDS: Potassium & Sodium Phos 250MG* = 1 PACKET PO SCH ×2 (07:48→12:11)
[2018-10-01] MEDS: Atorvastatin* 40 MG TAB PO SCH (07:48)
[2018-10-01] MEDS: fentaNYL Patch Check Q Shift 1 NOTE FOLLOW UP SCH ×2 (07:57→15:14)
[2018-10-01 10:03] VITALS: BP 142/63
[2018-10-01] MEDS ORDERED: Potassium Chlor TAB* 10 MEQ TAB.ER PO ONE (11:11)
[2018-10-01] MEDS: Cefepime 1 GM in Dextrose(*) 1 GM/50 ML BAG IV SCH (12:12)
--- NOTE | 2018-10-01 23:36 | DS ---
CC: Dr. Lior Schroeder, [place], [place] * DISCHARGE SUMMARY: DATE OF ADMISSION: 09/20/18 DATE OF DISCHARGE: 10/01/17 DISCHARGE DIAGNOSES: 1. Cellulitis. 2. Pneumonia. 3. Sepsis. 4. Peripheral vascular disease. 5. Gangrene of the right foot. 6. Right groin pain. 7. Hypokalemia. 8. Hypophosphatemia. 9. Hypocalcemia. 10. Seizure disorder. 11. Adrenal insufficiency due to chronic corticosteroids. 12. History of hypertension. 13. Benign prostatic hypertrophy. 14. Ankylosing spondylosis versus polymyalgia rheumatica, on chronic steroids. 15. Osteoporosis. 16. Cutaneous lupus. 17. Lumbar radiculopathy. 18. Elevated liver function tests, resolved. 19. Hypomagnesemia. 20. Edema. 21. History of orthostatic hypotension. 22. Anemia of chronic disease. 23. Osteoarthritis of the hips. HISTORY: John Tong is a 78-year-old man admitted to the hospital on with severe pain in his legs, leg swelling, and erythema due to cellulitis. Please see the dictated admission note for details of the present illnesses, past medical history, family history, social and personal history, review of systems, and physical examination. LABORATORY DATA: CBC on admission: WBC 6, H and H 12.6/37, MCV 87, and PLT 308 ,000. White count subsequently went up to 11.5 on 09/24/18, was up to 15.3 on 09/25/18 (probably due to stress doses of steroids) and down to 7 on 09/30/18. H and H went down as low as 9.7/28 on 09/27/18. CBC prior to discharge on 09/30 was WBC 7, H and H 10.8/32, MCV 86, PLT 316,000. INR and PTT were normal on admission. On 09/25/18, INR 1.25 and PTT 31.2. Chemistries on admission: Sodium 130, potassium 4.1, chloride 100, CO2 of 25, BUN and creatinine were 11/ 0.78, glucose 111. AST/ ALT 58/64, total protein 6.3. Rest of the comprehensive metabolic panel was otherwise within normal limits. Troponin on 09/25/18 was 0.5, was down to 0.3 on 09/25/18 and repeat 0.03. CRP was 11.82 on 09/20/18, went up to a high of 167.70 on 09/24/18, was down to 33.05 on 09/28, up to 63.34 on 09/30/18. The rise was thought to be due to tapering off the high dose steroids. AST was down to 39 by 09/26/18. ALT was down to 27 on 09/26/18. Magnesium was 1.7 on 09/22/18, came up to high of 2.3 on 09/26/18, it was 1.7 again on 09/30/18. Lactic acid was 2.4 on 09/24/18, was 0.9 on 09/25. Ammonia level was between 55 and 61 (slightly elevated). Procalcitonin was 1.8 (normal less than 0.6) on 09/28/18. Calcium went down as low as 7 on and 09/25/18, was up to 8.5 on 09/29/18. Ionized calcium was 1.10 on 09/24, 1.06 on 09/26/18. Phosphorus was down as low as 1.9 on 09/24/18, was up to 3.7 on 09/30/18. Urinalysis on 09/20/18; yellow, clear, specific gravity 1.009, pH 7, dipstick negative. On 09/24/18, urinalysis was normal. On , urine was johnny, turbid, pH 6, specific gravity 1.029, protein 2+, blood 3+ , glucose 1+. Vancomycin trough on 09/26/18 was 8.7, on 09/28/18 was 13.5. Blood cultures x2 on 09/24/18 were no growth. Stool for C. diff on 09/24/18 was negative. Urine culture on 09/24/18 was negative. MRSA screen was negative. IMAGING: Foot x-ray on 09/20/18 showed atherosclerosis, otherwise unremarkable , no change since August. Duplex scan of lower extremity, right, showed peroneal arteries not well demonstrated, right distal posterior tibial arteries occluded. Chest x-ray on 09/24/18, bibasilar infiltrates. Alex CT on 09/24/18 , no acute intracranial pathology, chronic findings as above. Hip and pelvis x- ray on 09/25/18, [id number] bilateral osteoarthritic change in the hips. Chest x- ray 09/25/18, small bibasilar infiltrates and trace bilateral pleural effusions, unchanged. Chest, abdomen and pelvis CTA showed no pulmonary emboli , patchy pulmonary infiltrates, and small to moderate bilateral pleural effusions; mild infiltration of the peritoneal fat in the right lower quadrant with trace fluid in the right paracolic gutter; mild infiltration over the right common femoral artery, found to be due to recent arteriotomy at this site ; bilateral overall appearance of fluid overload in the subcutaneous fat overlying the bilateral hips and extending inferiorly to include the bilateral lower extremities, most severe in the lower legs, consistent with cellulitis; widespread calcified atherosclerosis of the lower abdominal aorta and extending into the bilateral lower extremities; also mentioned were innumerable diverticula of the distal colon without diverticulitis. Arterial studies of the lower extremities on 09/30/18 showed ABIs 0.74 on the right, 0.98 on the left (see report). EKG on 09/25/18, sinus rhythm, PACs, intraventricular conduction delay, no significant changes since 04/03/16. CONSULTATION: Orthopedics on 09/22/18, Dr. Ureña, severe peripheral vascular disease with 2 recent vascularizations. He felt that further vascular consultation should be obtained. He did not feel there was an urgent need for amputation at this point. Intensive care consultation on 09/25/18, Dr. Delgado, thought that the patient had responded to fluid resuscitation, lactate had normalized, hypotension resolved, IV fluids discontinued, felt that the patient could go back to the medical floor. Hospitalist consultation on 09/24/18 felt that the patient had severe sepsis and changed the patient's Zosyn to cefepime, continued vancomycin, moved the patient to the ICU. Infectious disease consultation on 09/30/18 recommended that the patient could stop antibiotics after completion of 7 days of vancomycin and cefepime. HOSPITAL COURSE: The patient was initially admitted and started on Zosyn for cellulitis of his legs. His arterial status was assessed (see above). He continued on furosemide for edema. He was given morphine initially and then hydromorphone and continued on Percocet, OxyContin and a fentanyl patch for the pain in his legs. He was DNR per his previous wishes. DVT prophylaxis was obtained with rivaroxaban, which he was already taking. His pain was not well controlled initially, so his morphine was increased. This improved his pain control. Potassium was low, which was repleted. His calcium was low, which was repleted. His LFTs came down, the cause of this elevation was not clear. His magnesium was repleted. On 09/24/18, I was concerned about his rising CRP. It was noted that a previous culture in August had grown out pseudomonas and Staph lugdunensis. That night, he became septic and was moved to the ICU (see above). I had already started him on vancomycin and his Zosyn was changed to cefepime. He improved quickly with fluids, change in antibiotics. I moved him out of the ICU. He complained of right groin pain. This was investigated with imaging (see above). The etiology of this was unclear, it might have been due to a muscle strain or due to the previous arteriotomy. It seemed to improve over the course of his hospitalization. During the time that he was septic, his adrenal insufficiency which had been previously demonstrated was covered with stress doses of steroids. This was gradually tapered down and he is being discharged on prednisone 10 mg. It was noted when he became septic that he also had pneumonia. This was treated with the antibiotics as noted above. His symptoms improved. I connected with Dr. Schroeder, who is the interventional radiologist who had previously treated his peripheral vascular disease. He was willing to see him again to see if he could reestablish flow to his right foot for the dry gangrene. He felt that he could do another procedure. During the course of this hospitalization, he took initially morphine, then hydromorphone and OxyContin, oxycodone for the pain. He was also placed on gabapentin. It was not clear how much this was helping. On the morning of 09/29/18, he fainted on the toilet after having a loose bowel movement, a CAT call was done. His blood pressure was initially 179/147, came down to 124/74 when he was placed in bed. His pulse was 52 and then 56. He felt very cold afterwards. It was not clear whether this was a vasovagal episode or it could have been seizure. He had been on levetiracetam (Keppra) 3 times a day initially, but then dose put to twice a day. So then, the dose was increased to 3 times a day and it was felt that this perhaps had been a seizure, not clear. By the time of discharge on 10/01/18, he continued to have pain in his right foot. His groin pain on the right was improving. He had no further near syncopal episodes or syncopal episodes. He had been seen by Physical Therapy and he was walking with a walker. I had also ordered occupational therapy, but this was not done as he was out of the room when they attempted to see him. At the time of discharge, he is to be on the following: Regular diet. Activity as tolerated. He is to go down to [place] to have the procedure as planned this week. MEDICATIONS AT THE TIME OF DISCHARGE: 1. OxyContin 10 mg twice a day. 2. Furosemide 20 mg daily. 3. Potassium chloride 10 mEq twice a day. 4. Travatan Z 0.004% 1 drop both eyes at bedtime. 5. Tamsulosin 0.4 mg twice a day. 6. Pantoprazole 40 mg daily. 7. Xarelto 2.5 mg twice a day. 8. Multivitamins once a day. 9. Loratadine 10 mg daily. 10. Hydroxychloroquine 400 mg daily. 11. Finasteride 5 mg daily. 12. Calcium plus D 600/400 one tab daily. 13. Atorvastatin 40 mg daily. 14. Aspirin 81 mg daily. 15. Albuterol 2 puffs q.4 h. p.r.n. 16. Acetaminophen 650 q.6 h. p.r.n. 17. Percocet 1 to 2 tablets 4 times a day as needed for pain. 18. Prednisone 10 mg daily. 19. Keppra 500 mg 3 times a day. DIET: Regular. ACTIVITY: As tolerated. FOLLOWUP: Followup is with myself in 1 to [address] Schroeder as planned this week. [id number]/[facility] #: [id number] DANA
== END 2018-10-01 14:00 | disposition home or self-care (01) | DRG 602 ==
LOC: MED 17:15 → ICU 09-25 00:05 → MED 09-25 14:04
PROVIDERS: ADMIT Internal Medicine Geriatric Medicine; ATTEND Internal Medicine Geriatric Medicine
DX: L03.116 Cellulitis of left lower limb (principal); A41.9 Sepsis, unspecified organism; J18.9 Pneumonia, unspecified organism; G93.41 Metabolic encephalopathy; I96 Gangrene, not elsewhere classified; E27.3 Drug-induced adrenocortical insufficiency; N13.8 Other obstructive and reflux uropathy; L03.115 Cellulitis of right lower limb; Z66 Do not resuscitate; R10.31 Right lower quadrant pain; E87.6 Hypokalemia; E83.39 Other disorders of phosphorus metabolism; E83.51 Hypocalcemia; E83.42 Hypomagnesemia; G40.909 Epilepsy, unspecified, not intractable, without status epilepticus; R55 Syncope and collapse; T38.0X5D Adverse effect of glucocorticoids and synthetic analogues, subsequent encounter; Y92.9 Unspecified place or not applicable; I10 Essential (primary) hypertension; M45.9 Ankylosing spondylitis of unspecified sites in spine; M35.3 Polymyalgia rheumatica; M81.0 Age-related osteoporosis without current pathological fracture; R94.5 Abnormal results of liver function studies; M54.16 Radiculopathy, lumbar region; K59.03 Drug induced constipation; T40.2X5A Adverse effect of other opioids, initial encounter; L40.50 Arthropathic psoriasis, unspecified; N40.1 Benign prostatic hyperplasia with lower urinary tract symptoms; D63.8 Anemia in other chronic diseases classified elsewhere; M16.0 Bilateral primary osteoarthritis of hip; L93.2 Other local lupus erythematosus; Z88.1 Allergy status to other antibiotic agents; Z88.2 Allergy status to sulfonamides; Z88.8 Allergy status to other drugs, medicaments and biological substances; Z79.01 Long term (current) use of anticoagulants; Z79.82 Long term (current) use of aspirin; Z79.891 Long term (current) use of opiate analgesic; Z79.52 Long term (current) use of systemic steroids; Z79.899 Other long term (current) drug therapy; Z87.891 Personal history of nicotine dependence
CPT/HCPCS: 36415; 70450; 71045; 71046; 75635; 80048; 80053; 80177; 80202; 81003; 81015; 82140; 82330; 82565; 83605; 83735; 84100; 84145; 84484; 84520; 85025; 85045; 85610; 85730; 86140; 87040; 87086; 87493; 87641; 93005; 93922; A9270-GY; G8978-GP-CL; G8979-GP-CI; J0692; J1170; J1720; J1885; J1940; J2270; J2543; J3370; J3475; J7512; Q9967

== ENCOUNTER 2019-03-25 14:04 | Emergency (ER) | payer MEDICARE ==
[2019-03-25 14:25] VITALS: BP 125/59
--- NOTE | 2019-03-25 15:19 | UC ---
Truncal Trauma HPI - HPI Summary HPI Summary: 78 yo male presents accompanied by . They tell me that pt fell 2 days ago to his knees - this is not uncommon for him given his multiple surgeries and comorbidities. His went to pick him up with her arms wrapped around his chest, as she usually does. When she lifted him he had instant pain in his left anterior chest. Pain has persisted since that time. Better with rest. Worse with deep breaths, coughing, sneezing. He does not feel short of breath. He has been taking tylenol and his oxycodone at home for his discomfort with good relief. 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 Severity Initially: Severe Severity Currently: Severe Pain Intensity: 8 Pain Scale Used: 0-10 Numeric - Allergies/Home Medications Allergies/Adverse Reactions: Allergies Allergy/AdvReac Type Severity Reaction Status Date / Time alendronate sodium Allergy Unknown Verified 03/25/19 14:25 Reaction Details azathioprine Allergy Unknown Verified 03/25/19 14:25 Reaction Details benazepril [From Lotensin] Allergy Unknown Verified 03/25/19 14:25 Reaction Details celecoxib Allergy Hives Verified 03/25/19 14:25 cilostazol Allergy Unknown Verified 03/25/19 14:25 Reaction Details clindamycin Allergy Unknown Verified 03/25/19 14:25 Reaction Details glucosamine Allergy Unknown Verified 03/25/19 14:25 Reaction Details hydrochlorothiazide Allergy Unknown Verified 03/25/19 14:25 [From Dyazide] Reaction Details hydroxychloroquine Allergy Unknown Verified 03/25/19 14:25 Reaction Details methotrexate Allergy See Comment Verified 03/25/19 14:25 morphine Allergy See Comment Verified 03/25/19 14:25 triamterene [From Dyazide] Allergy Unknown Verified 03/25/19 14:25 Reaction Details Home Medications: Home Medications Demeclocycline TAB* [Declomycin TAB*] 150 mg PO DAILY 03/25/19 [History Confirmed 03/25/19] Gabapentin 600 mg PO DAILY 03/25/19 [History Confirmed 03/25/19] Multivitamin [Multivitamins] 1 cap PO DAILY 03/25/19 [History Confirmed 03/25/19 ] Sertraline* [Zoloft*] 100 mg PO DAILY 03/25/19 [History Confirmed 03/25/19] PMH/Surg Hx/FS Hx/Imm Hx - Additional Past Medical History Additional PMH: PMR Constipation Seizure disorder PAD HTN BPH Lupus - Surgical History Surgical History: Yes Surgery Procedure, Year, and Place: rotator cuff repair bilat; varicele 20YRS + ; CATARACTS BILAT. Torn ligament in left elbow- over 20yrs ago - Family History Known Family History: Positive: Cardiac Disease Negative: Diabetes - Social History Occupation: Retired Alcohol Use: Rare Alcohol Amount: 1-2 day,now has cut back. Substance Use Type: None Smoking Status (MU): Former Smoker Type: Cigarettes Amount Used/How Often: 1-2 packs in week Have You Smoked in the Last Year: No - Immunization History Most Recent Influenza Vaccination: Jun 2018 Most Recent Tetanus Shot: 04/03/16 Most Recent Pneumonia Vaccination: has had Review of Systems All Other Systems Reviewed And Are Negative: Yes Constitutional: Positive: Negative Skin: Positive: Negative Respiratory: Positive: Negative Cardiovascular: Positive: Negative Neurovascular: Positive: Negative Musculoskeletal: Positive: Other: - Left rib pain Neurological: Positive: Negative Psychological: Positive: Negative Physical Exam - Summary Physical Exam Summary: GENERAL: NAD. WDWN. No pain distress. SKIN: No rashes, sores, lesions, or open wounds. NECK: Supple. Nontender. CHEST: CTAB. No r/r/w. No accessory muscle use. Breathing comfortably and in no distress. CV: RRR. Pulses intact. Cap refill <2seconds ABDOMEN: Soft. NTTP. No distention or guarding. No CVA tenderness. Bowel sounds present MSK: LEFT anterior ribs ~9th with TTP. Pain worse with deep breaths. NEURO: Alert. PSYCH: Age appropriate behavior. Triage Information Reviewed: Yes Vital Signs: Initial Vital Signs Temp 98.1 F 03/25/19 14:19 Pulse 59 03/25/19 14:19 Resp 20 03/25/19 14:19 BP 125/59 03/25/19 14:19 Pulse Ox 100 03/25/19 14:19 Laboratory Tests 03/25/19 15:32 POC Urine Color Yellow POC Urine Clarity Clear POC Urine pH 5.5 POC Ur Specif Dickerson 1.015 POC Urine Protein Negative POC Ur Glucose (UA) Negative POC Urine Ketones Negative POC Urine Blood Negative POC Urine Nitrite Negative POC Urine Bilirubin Negative POC Urine Urobilinogen 0.2 POC U Leukocyte Esteras Trace A Vital Signs Reviewed: Yes Truncal Trauma Course/Dx - Course Course Of Treatment: XR: IMPRESSION: MINIMALLY DISPLACED FRACTURES OF THE LATERAL ASPECT OF THE LEFT NINTH AND 10TH RIBS. NO APPRECIABLE PNEUMOTHORAX. Discussed results with pt. Advised to continue taking tylenol and his at home pain medication. May try an OTC lidocaine patch. He was given an incentive spirometer to use to help prevent atelectasis/PNA. Encouraged to take slow deep breaths. Recommend f/u with PCP within 1 week for a recheck - Differential Dx/Diagnosis Provider Diagnosis: Left rib fracture Discharge - Sign-Out/Discharge Documenting (check all that apply): Patient Departure All imaging exams completed and their final reports reviewed: Yes - Discharge Plan Condition: Stable Disposition: HOME Patient Education Materials: How to Use an Incentive Spirometer (ED), Rib Fracture (ED) Referrals: May Castillo MD [Primary Care Provider] - 2 Days Additional Instructions: If you develop a fever, shortness of breath, chest pain, new or worsening symptoms - please call your PCP or go to the ED immediately. Please continue taking tylenol and your at home pain medication as prescribed. May try using an [id number] lidocaine patch for discomfort I recommend that you practice taking slow deep breaths and follow up with Dr. Castillo within 1 week for a recheck - Billing Disposition and Condition Condition: STABLE Disposition: Home
== END 2019-03-25 15:55 | disposition home or self-care (01) ==
LOC: UCEAST 14:04
DX: S22.32XA Fracture of one rib, left side, initial encounter for closed fracture (principal); W18.30XA Fall on same level, unspecified, initial encounter; Y92.019 Unspecified place in single-family (private) house as the place of occurrence of the external cause; I10 Essential (primary) hypertension; I73.9 Peripheral vascular disease, unspecified; Z88.5 Allergy status to narcotic agent; Z91.81 History of falling; Z87.891 Personal history of nicotine dependence
CPT/HCPCS: 81003; 87086; 99211; G0463

== ENCOUNTER 2019-06-02 08:04 | Inpatient (IN) | payer MEDICARE ==
--- NOTE | 2019-06-02 08:44 | ED ---
GI/ HPI - HPI Summary HPI Summary: This patient is a 78 year old M [facility] accompanied by and daughter complains of increased liquid intake and increased urine frequency since 05/31/19 (2 days ago) per . reports urine incontinence and increased urine output. Patient's states that patient filled 1 urinal yesterday between 0800 and 0900. Patient denies dysuria. Patient additionally complains of weakness, confusion, fatigue since 05/31/19 (2 days ago) per . Patient describes his pain as uncomfortable. The patient rates the pain 4/10 in severity. Symptoms aggravated by nothing. Symptoms alleviated by nothing. Per patient's , patient takes prednisone. 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 Negative: Dysuria Aggravating Factor(s): Nothing Alleviating Factor(s): Nothing - Additional Pertinent History Primary Care Physician: [id number] - Allergy/Home Medications Allergies/Adverse Reactions: Allergies Allergy/AdvReac Type Severity Reaction Status Date / Time alendronate sodium Allergy Unknown Verified 06/02/19 08:14 Reaction Details azathioprine Allergy Unknown Verified 06/02/19 08:14 Reaction Details benazepril [From Lotensin] Allergy Unknown Verified 06/02/19 08:14 Reaction Details celecoxib Allergy Hives Verified 06/02/19 08:14 cilostazol Allergy Unknown Verified 06/02/19 08:14 Reaction Details clindamycin Allergy Unknown Verified 06/02/19 08:14 Reaction Details glucosamine Allergy Unknown Verified 06/02/19 08:14 Reaction Details hydrochlorothiazide Allergy Unknown Verified 06/02/19 08:14 [From Dyazide] Reaction Details hydroxychloroquine Allergy See Comment Verified 06/02/19 08:14 methotrexate Allergy See Comment Verified 06/02/19 08:14 morphine Allergy See Comment Verified 06/02/19 08:14 Sulfa (Sulfonamide Allergy See Comment Verified 06/02/19 08:15 Antibiotics) triamterene [From Dyazide] Allergy Unknown Verified 06/02/19 08:14 Reaction Details Home Medications: Home Medications Atorvastatin Calcium [Lipitor] 1 tab PO DAILY 06/02/19 [History Confirmed ] Clopidogrel TAB* [Plavix TAB*] 1 tab PO DAILY 06/02/19 [History Confirmed ] Fludrocortisone Acetate TAB* [Florinef TAB*] 1 tab PO DAILY 06/02/19 [History Confirmed 06/02/19] Magnesium Oxide [Magnesium] 1 tab PO BID 06/02/19 [History Confirmed 06/02/19] Omeprazole 1 tab PO DAILY 06/02/19 [History Confirmed 06/02/19] Potassium Chlor TAB* [Klor Con ER TAB 10 MEQ*] 10 meq PO DAILY 06/02/19 [ History Confirmed 06/02/19] Sildenafil (PULMONARY)(NF) [Revatio (NF)] 0.5 tab PO DAILY 06/02/19 [History Confirmed 06/02/19] Sodium Chloride TAB* 2 tab PO BID 06/02/19 [History Confirmed 06/02/19] levETIRAcetam TAB* [Keppra TAB*] 500 mg PO BID 06/02/19 [History Confirmed 06/02] PMH/Surg Hx/FS Hx/Imm Hx Endocrine/Hematology History: Denies: Hx Diabetes, Hx Anemia Cardiovascular History: Reports: Hx Hypotension - orthostatic, Hx Peripheral Vascular Disease - 09/13: now on [place] Denies: Hx Angina, Hx Coronary Artery Disease, Hx Hypercholesterolemia, Hx Hypertension, Hx Myocardial Infarction, Hx Pacemaker/ICD, Hx Valvular Heart Disease, Other Cardiovascular Problems/Disorders Respiratory History: Reports: Hx Seasonal Allergies, Other Respiratory Problems/ Disorders - IS BEING TREATED FOR SYSTEMIC FUNGAL INFECTION Denies: Hx Asthma, Hx Chronic Obstructive Pulmonary Disease (COPD) GI History: Reports: Hx Hiatal Hernia Denies: Hx Jaundice History: Reports: Hx Benign Prostatic Hyperplasia Denies: Hx Renal Disease - left kidney damage in s Musculoskeletal History: Reports: Hx Arthritis - polymyalgia rheumatica, Hx Rheumatoid Arthritis, Hx Back Problems, Hx Osteoporosis Sensory History: Reports: Hx Cataracts, Hx Contacts or Glasses, Hx Glaucoma Denies: Hx Hearing Aid Opthamlomology History: Reports: Hx Cataracts, Hx Contacts or Glasses, Hx Glaucoma Neurological History: Reports: Other Neuro Impairments/Disorders - syncope Denies: Hx Headaches Psychiatric History: Denies: Hx Panic Disorder - Surgical History Surgery Procedure, Year, and Place: rotator cuff repair bilat; varicele 20YRS + ; CATARACTS BILAT. Torn ligament in left elbow- over 20yrs ago. Right BKA Hx Anesthesia Reactions: No - Immunization History Immunizations Up to Date: Yes Infectious Disease History: No Infectious Disease History: Denies: Hx Clostridium Difficile, Hx Hepatitis, Hx Human Immunodeficiency Virus (HIV), Hx of Known/Suspected MRSA, Hx Shingles, Hx Tuberculosis, Hx Known/ Suspected VRE, Hx Known/Suspected VRSA, History Other Infectious Disease, Traveled Outside the [place] in Last 30 Days - Family History Known Family History: Positive: Cardiac Disease Negative: Diabetes - Social History Alcohol Use: Rare Alcohol Amount: 1-2 day,now has cut back. Hx Substance Use: No Substance Use Type: Reports: None Hx Tobacco Use: Yes Smoking Status (MU): Former Smoker Type: Cigarettes Amount Used/How Often: 1-2 packs in week Have You Smoked in the Last Year: No Review of Systems Positive: Fatigue Positive: Other - increased liquid intake Positive: frequency, incontinence, other - increased urine output. Negative: dysuria Neurological: Other - confusion Positive: Weakness All Other Systems Reviewed And Are Negative: Yes Physical Exam - Summary Physical Exam Summary: Appearance: The patient is well-nourished in no acute distress and in no acute pain. Skin: The skin is warm and tense and skin color reflects adequate perfusion. HEENT: The head is normocephalic and atraumatic. The pupils are equal and reactive. The conjunctivae are clear and without drainage. Nares are patent and without drainage. Mouth reveals dry mucous membranes and the throat is without erythema and exudate. The external ears are intact. The ear canals are patent and without drainage. The tympanic membranes are intact. Neck: The neck is supple with full range of motion and non-tender. There are no carotid bruits. There is no neck vein distension. Respiratory: Chest is non-tender. Lungs are clear to auscultation and breath sounds are symmetrical and equal. Cardiovascular: Heart is regular rate and rhythm. There is no murmur or rub auscultated. There is no peripheral edema and pulses are symmetrical and equal. Abdomen: The abdomen is soft and non-tender. There are normal bowel sounds heard in all four quadrants and there is no organomegaly palpated. Musculoskeletal: There is no back tenderness noted. Extremities are non-tender with full range of motion. There is good capillary refill. There is no peripheral edema or calf tenderness elicited. Patient has right BKA. Neurological: Patient is alert and oriented to person, place and time. The patient has symmetrical motor strength in all four extremities. Cranial nerves are grossly intact. Deep tendon reflexes are symmetrical and equal in all four extremities. Triage Information Reviewed: Yes Vital Signs On Initial Exam: Initial Vitals Temp Pulse Resp BP Pulse Ox 99.5 F 63 18 144/81 98 06/02/19 08:06 06/02/19 08:06 06/02/19 08:06 06/02/19 08:06 06/02/19 08:06 Vital Signs Reviewed: Yes Diagnostics - Vital Signs Vital Signs Temp Pulse Resp BP Pulse Ox 06/02/19 08:06 99.5 F 63 18 144/81 98 - Laboratory Result Diagrams: 06/02/19 08:38 06/02/19 08:38 Lab Statement: Any lab studies that have been ordered have been reviewed, and results considered in the medical decision making process. - Radiology Chest Xray Radiology Interpretation Completed By: Radiologist Summary of Radiographic Findings: IMPRESSION: HYPERINFLATED LUNG MASSEY WITH CHRONIC INTERSTITIAL CHANGES. NO DEFINITE PNEUMONIA IS IDENTIFIED. ED Physician has reviewed this report. - EKG 0841 Cardiac Rate: NL - 101 BPM EKG Rhythm: Sinus Rhythm Summary of EKG Findings: normal sinus rhythm at 101 BPM, left anterior fasicular block GIGU Course/Dx - Course Course Of Treatment: Mr. Tong presented complaining of severe weakness for the last couple of days. He's also had some urinary frequency with normal quantities urine each time. He never met septic criteria. IV was initiated was kept on a monitor while labs and chest x-ray were obtained. His labs are unremarkable. He was nontoxic with stable vitals. His urine suggested infection. He was given Cipro and fluids here. Subsequent to our treatment we tried to walk him and he was unable to ambulate as he was too weak. I spoke with the hospitalist about admission. - Diagnoses Provider Diagnoses: Weakness, UTI (urinary tract infection) - Physician Notifications Discussed Care Of Patient With: Celsa Hong Time Discussed With Above Provider: 12:35 Instructed by Provider To: Other - Dr. Hong, Hospitalist, agrees to consult. Dr. Hong agrees to admit patient. Discharge ED - Sign-Out/Discharge Documenting (check all that apply): Patient Departure - Admit Patient Received Moderate/Deep Sedation with Procedure: No - Discharge Plan Condition: Stable Disposition: ADMITTED TO [facility] Referrals: May Castillo MD [Primary Care Provider] - - Billing Disposition and Condition Condition: STABLE Disposition: Admitted to [facility] - Attestation Statements Document Initiated by Scribe: Yes Documenting Scribe: Mary Barkley Provider For Whom Scribe is Documenting (Include Credential): Harlan Bernal MD Scribe Attestation: Mary Keller scribed for Harlan Bernal MD on 06/02/19 at 1555. Scribe Documentation Reviewed: Yes Provider Attestation: The documentation as recorded by the [email or web address] accurately reflects the service I personally performed and the decisions made by , Harlan Bernal MD Status of Scribe Document: Viewed
[2019-06-02 08:46] LABS: ABS Lymphocytes 0.8 10^3/ul (1.0-4.8); ABS Monocytes 0.9 10^3/ul (0-0.8); ABS Neutrophils 3.6 10^3/ul (1.5-7.7); Eosinophil % 0.5 %; Hematocrit 33 % (42-52); Lymphocyte % 14.2 %; Mean Corpuscular HGB Conc 33 g/dL (31-36); Mean Corpuscular Hemoglobin 27 pg (27-31); Mean Corpuscular Volume 82 fL (80-94); Mean Platelet Volume 6.3 fL (7.4-10.4); Platelet Count 175 10^3/uL (150-450); Red Blood Count 4.09 10^6 /uL (4.18-5.48); Red Cell Distribution Width 16 % (10-15); White Blood Count 5.3 10^3/uL (3.5-10.8)
[2019-06-02 08:52] LABS: INR 0.97 (0.82-1.09)
[2019-06-02 09:08] LABS: Albumin 3.2 g/dL (3.2-5.2); BUN/Creatinine Ratio 12.1 (8-20); C Reactive Protein 22.07 mg/L (<8.01); Calcium 11.3 mg/dL (8.6-10.3); EGFR African American 88.2 (>60); EGFR Non-African American 72.9 (>60); Globulin 3.3 g/dL (2-4); Magnesium 1.4 mg/dL (1.9-2.7); Potassium 3.2 mmol/L (3.5-5.0); Total Bilirubin 1.1 mg/dL (0.2-1.0); Total Protein 6.5 g/dL (6.4-8.9)
[2019-06-02 09:09] LABS: Troponin I 0.01 ng/mL (<0.04)
[2019-06-02 09:39] LABS: TSH (Thyroid Stimulating Horm) 1.49 mcIU/mL (0.34-5.60)
[2019-06-02] MEDS ORDERED: NS 0.9% 1000 ML** 1,000 ML IV ONE (09:51)
[2019-06-02 10:46] LABS: Urine Appearance Cloudy; Urine Bacteria Absent (Absent); Urine Bilirubin Negative (Negative); Urine Blood Negative (Negative); Urine Color Yellow; Urine Glucose Negative (Negative); Urine Ketones Negative (Negative); Urine Nitrite Negative (Negative); Urine Protein Negative (Negative); Urine Red Blood Cell Trace(0-2/hpf) (Absent); Urine Specific Gravity 1.009 (1.010-1.030); Urine Urobilinogen Negative (Negative); Urine White Blood Cell 3+(>20/hpf) (Absent)
[2019-06-02] MEDS ORDERED: Ciprofloxacin 400MG IVPREMIX(* 400 MG/200 ML BAG IVPB ONE (11:49)
[2019-06-02] MEDS ORDERED: Ondansetron INJ* 2 MG/ML VIAL IV PRN (14:52)
[2019-06-02] MEDS ORDERED: Acetaminophen TAB* 325 MG PO PRN (14:53)
[2019-06-02] MEDS ORDERED: Albuterol HFA INHALER* 8 gm MDI INH PRN (14:53)
[2019-06-02] MEDS ORDERED: oxyCODONE/Acetamin 5/325 MG* TAB PO PRN (14:53)
[2019-06-02] MEDS ORDERED: Lactated Ringers 1000 ML Bag* 1,000 ML IV SCH (15:00)
[2019-06-02] MEDS ORDERED: Potassium Chloride* LIQUID 20 MEQ/15 ML UDC PO ONE (15:03)
[2019-06-02] MEDS ORDERED: Magnesium Sulfate IV* 3 GM in NS 0.9% 100 ML* 100 ML IVPB ONE (15:03)
[2019-06-02] MEDS: Enoxaparin(*) 40 MG/0.4 ML SYR SUBCUT SCH (17:14)
[2019-06-02] MEDS: cefTRIAXone(*) 1 GM in NS 0.9% 50 ML* 50 ML IVPB SCH (18:19)
[2019-06-02] MEDS: Acetaminophen TAB* 325 MG PO PRN (18:22)
[2019-06-02] MEDS ORDERED: NS 0.9% 100 ML* 100 ML ONE (18:59)
--- NOTE | 2019-06-02 20:39 | HP ---
CC: Dr. May Castillo; Dr. Celsa Hong.* ADMISSION HISTORY AND PHYSICAL: DATE OF ADMISSION: 06/02/19 PRIMARY CARE DOCTOR: Dr. May Castillo MY ATTENDING PHYSICIAN WHILE IN THE HOSPITAL: Dr. Celsa Hong* (dictated by COREY Rossi). CHIEF COMPLAINT: Weakness and confusion x2 days. HISTORY OF PRESENT ILLNESS: Mr. Tong is a 78-year-old male with past medical history significant for peripheral vascular disease, status post right lower extremity amputation; BPH; non-specified inflammatory disorder; cutaneous lupus, who presented to the emergency department after Sunday night he began to feel weak and began to get more confused. The patient began to feel more unsteady on his feet throughout the day. Sunday, he had a large increase in his urine output and an increase in his incontinence. He also had urinary frequency, urgency, and some dysuria. The patient denies fevers, chills, nausea , vomiting, abdominal pain, or diarrhea. The patient has had no recent instrumentation of his urinary tract. The patient has no history of urinary tract infection. The patient does not feel as if he is retaining urine. The patient was very confused this morning per his and almost fell out of bed overnight and then this morning fell and was down for approximately 25 minutes, unable to get up. The patient thought he was going to go visit his son in [place]. The patient has not had any recent changes to his medication. The patient has lower extremity edema wounds, which are healing well after he started on sildenafil and he is on demeclocycline for supposedly bacteria in his foot. The patient appears to have improved after his fluids, antibiotics. The patient has multiple antibiotic allergies, the family is concerned about him getting the correct medications. The patient specifically denies penicillin or cephalosporin due to the concern for weakness and altered mental status. We were asked to evaluate the patient for admission to the hospital. PAST MEDICAL HISTORY: Hypertension, peripheral vascular disease, BPH, ankylosing spondylitis versus polymyalgia rheumatica, osteoarthritis, osteoporosis, lumbar radiculopathy, cutaneous lupus, seizure disorder, acquired adrenal insufficiency, anemia of chronic disease. PAST SURGICAL HISTORY: Rotator cuff repair bilaterally, lateral elbow release, tonsillectomy, hydrocele repair, right lower extremity amputation. MEDICATIONS: 1. Finasteride 5 mg p.o. daily. 2. Travatan 0.004 one drop both eyes at bedtime. 3. Calcium carbonate. 4. Vitamin D3 600/400 1 tab p.o. daily. 5. Tylenol 650 mg p.o. q.6 hours needed. 6. Albuterol inhaler 2 puffs inhalation q.4 hours as needed. 7. Percocet 5/325 one to two tabs p.o. q.6 hours as needed. 8. Prednisolone 10 mg p.o. daily. 9. Gabapentin 600 mg p.o. t.i.d. 10. Demeclocycline 150 mg p.o. b.i.d. 11. Multivitamin 1 tab p.o. daily. 12. Clopidogrel 1 tab p.o. daily. 13. Fluticasone 1 tab p.o. daily. 14. Omeprazole 20 mg p.o. daily. 16. Clopidogrel 1 tab 75 mg p.o. daily. 17. Florinef 0.1 mg p.o. daily. 18. Omeprazole 20 mg p.o. daily. 19. Sodium chloride 2 g p.o. b.i.d. 20. Magnesium 1 tab p.o. b.i.d. 21. Lipitor 40 mg p.o. daily. 22. Sildenafil 10 mg p.o. daily. 23. Keppra 500 mg p.o. b.i.d. 24. Potassium chloride 10 mEq p.o. daily ALLERGIES: FOSAMAX, AZATHIOPRINE, BENAZEPRIL, CELECOXIB, SULFA, CLINDAMYCIN, METHOTREXATE, CILOSTAZOL, GLUCOSAMINE, HYDROCHLOROTHIAZIDE, HYDROXYCHLOROQUINE, METHOTREXATE, MORPHINE, TRIAMTERENE. FAMILY HISTORY: The patient's father of complications of CVA. The patient 's mother of heart failure. The patient has a sister who also has heart failure and a brother whose history is unknown. SOCIAL HISTORY: The patient smoked from when he was teenager to the 70s. The patient has not had any alcoholic beverage. The patient denies any illicit drug use. 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 The patient is and has 3 children. The patient's surrogate decision maker will be his , Corinne Tong. REVIEW OF SYSTEMS: A 14-point review of systems were reviewed, is negative except as above in the HPI. PHYSICAL EXAMINATION GENERAL: The patient is a 78-year-old male, who appears stated age and sitting comfortably in bed in no acute distress. VITAL SIGNS: At the time of evaluation, temperature 99.5, pulse rate 48, respiratory rate 14, oxygen saturation 97% on room air, blood pressure 151/76. HEENT: Head: Normocephalic, atraumatic. Sclerae anicteric. No conjunctival injection. Nasal mucosa moist. Oral mucosa moist. No pharyngeal erythema, discharge, or exudate. NECK: Supple, nontender. No lymphadenopathy. No carotid bruit auscultated. No JVD. RESPIRATORY: Clear to auscultation bilaterally. No wheezes, rales or rhonchi. Good air exchange bilaterally. HEART: Regular rate and rhythm. No clicks, murmurs, gallops or rubs. Pulse is 2+ bilateral radial areas, 1+ in the left lower extremity dorsalis pedis and posterior tibialis area. Right lower extremity surgically absent. No lower extremity edema.. ABDOMEN: Soft, nontender, nondistended. Bowel sounds present normoactive in all 4 quadrants. No hepatosplenomegaly. No abdominal bruits auscultated. No hepatojugular reflux. GENITOURINARY: No suprapubic or CVA tenderness. SKIN: Small ulcers on the tip of the third toe on the left foot and on the fifth metatarsal head on the left foot. No other rashes or ulcers. NEUROLOGIC: Cranial nerves II through XII intact. No focal deficits. Alert and oriented x3. PSYCHIATRIC: Pleasant and cooperative. DIAGNOSTIC STUDIES/LAB DATA: White blood cell count 5.3, hemoglobin 11, platelet count 175, INR 0.97. Sodium 138, potassium 3.2, chloride 104, carbon dioxide 27, anion gap 4, BUN 12, creatinine 0.99, glucose 120, lactic acid 2.5, calcium 11.3, magnesium 1.4, bilirubin 1.1, AST 19, ALT 11, alkaline phosphatase 59. Total protein I 0.01, CRP 22.07, protein 6.5, albumin 3.2, globulin 3.3, TSH 1.49. Urine yellow, cloudy, low specific gravity, 3+ leukocyte esterase and white blood cells. EKG shows normal sinus rhythm, left axis deviation, no hypertrophy or enlargement. No ST segment elevation. Impression, right bundle branch block. Compared to previous exam, right bundle branch block has progressed to a certain degree, no other significant changes. ASSESSMENT AND PLAN AND IMPRESSION: Mr. Tong is 78-year-old male with past medical history significant for peripheral vascular disease, benign prostatic hyperplasia and with ankylosing spondylitis versus polymyalgia rheumatica, who presented to the emergency department with urinary frequency, incontinence, dysuria, weakness and confusion x2 days admitted to the hospital for rehydration , IV antibiotics and physical and occupational therapy consul. 1. Weakness, confusion: The patient's weakness, confusion are likely due to his urinary tract infection. We will await the patient's urine culture. The patient has no other laboratory data elucidating why he may be weak except for possibly being dehydrated, which could be related to his weakness as opposed to be a cause of his weakness. The patient has an elevated lactic acid, it should be repeated until normalized. The patient has an elevated calcium, which is likely related to dehydration, it will be repeated in the morning after rehydration. The patient has an slightly elevated CRP, though this is around his baseline. The patient is anemic at his baseline. The patient has no other signs of infection. His lower extremity infection is healing well. His chest x -ray is clear and his lung exam is clear. The patient will be started on ceftriaxone and given fluids. 2. Benign prostatic hyperplasia: This is likely predisposing the patient to urinary tract infection. We will bladder scan the patient to make sure he is not retaining. The patient is currently on finasteride, this will be continued 3. Peripheral vascular disease: Continue the patient's clopidogrel, sildenafil and fluids. The patient has good pulses in his foot and his ulcers are healing well. Follow up outpatient with his outpatient neurosurgeon 4. Chronic steroid use with adrenal insufficiency. Continue the patient's prednisone, fludrocortisone. Patient does not describe symptoms of orthostasis , though orthostatic vital signs will be checked. 5. FEN: The patient will have unrestricted diet and fluids at 100 mL an hour for 1 more liter. 6. DVT prophylaxis: The patient will have Lovenox subcu. TIME SPENT: Approximately 60 minutes were spent on this admission of this patient, 30 of which was spent [id number] with the patient obtaining history and physical and discussing treatment plan. This plan was discussed with my attending, Dr. Celsa Hong, and she is in agreement. COREY ROSSI [id number]/[facility] #: [id number] DANA
[2019-06-02] MEDS: Latanoprost 0.005%* 2.5 ml BTL BOTH EYES SCH (21:16)
[2019-06-02] MEDS: Gabapentin CAP(*) 300 MG PO SCH (21:23)
[2019-06-02] MEDS: Magnesium Oxide TAB* 400 MG PO SCH (21:23)
[2019-06-02] MEDS: Sodium Chloride TAB* 1 GM PO SCH (21:23)
[2019-06-02] MEDS: levETIRAcetam TAB* 500 MG PO SCH (21:23)
[2019-06-02] MEDS: Demeclocycline TAB* 150 MG PO SCH (21:24)
[2019-06-03 05:32] LABS: ABS Basophils 0.1 10^3/ul (0-0.2); ABS Eosinophils 0.1 10^3/ul (0-0.6); ABS Lymphocytes 1.4 10^3/ul (1.0-4.8); ABS Monocytes 0.7 10^3/ul (0-0.8); ABS Neutrophils 2.2 10^3/ul (1.5-7.7); Eosinophil % 1.2 %; Hematocrit 32 % (42-52); Hemoglobin 10.9 g/dL (14.0-18.0); Lymphocyte % 31.4 %; Mean Corpuscular HGB Conc 34 g/dL (31-36); Mean Corpuscular Hemoglobin 28 pg (27-31); Mean Corpuscular Volume 81 fL (80-94); Mean Platelet Volume 6.1 fL (7.4-10.4); Platelet Count 155 10^3/uL (150-450); Red Blood Count 3.95 10^6 /uL (4.18-5.48); Red Cell Distribution Width 16 % (10-15); White Blood Count 4.5 10^3/uL (3.5-10.8)
[2019-06-03 05:48] LABS: BUN/Creatinine Ratio 12.6 (8-20); Calcium 10.7 mg/dL (8.6-10.3); EGFR African American 102.4 (>60); EGFR Non-African American 84.6 (>60); Magnesium 1.8 mg/dL (1.9-2.7); Potassium 3.2 mmol/L (3.5-5.0)
[2019-06-03] MEDS ORDERED: Potassium Chlor TAB* 10 MEQ TAB.ER PO SCH (09:00)
[2019-06-03] MEDS ORDERED: Fludrocortisone Acetate TAB* 0.1 MG PO SCH (09:00)
[2019-06-03 09:37] LABS: C Reactive Protein 23.38 mg/L (<8.01)
[2019-06-03 09:53] LABS: Vitamin D Total 25(OH) 31.3 ng/mL (20-50)
[2019-06-03 10:10] LABS: Phosphorus 3.2 mg/dL (2.5-5.0)
[2019-06-03] MEDS: Pantoprazole TAB * 40 MG TAB PO SCH (10:36)
[2019-06-03] MEDS: Finasteride TAB* 5 MG PO SCH (10:36)
[2019-06-03] MEDS: Gabapentin CAP(*) 300 MG PO SCH ×3 (10:36→22:23)
[2019-06-03] MEDS: Potassium Chlor TAB* 20 MEQ TAB.ER PO SCH ×2 (10:36→22:23)
[2019-06-03] MEDS: predniSONE TAB* 5 MG PO SCH (10:36)
[2019-06-03] MEDS: levETIRAcetam TAB* 500 MG PO SCH ×2 (10:37→22:23)
[2019-06-03] MEDS: Atorvastatin* 40 MG TAB PO SCH (10:37)
[2019-06-03] MEDS: Vitamin THERAPEUTIC TAB PO SCH (10:37)
[2019-06-03] MEDS: Clopidogrel TAB* 75 MG PO SCH (10:37)
[2019-06-03] MEDS: Magnesium Oxide TAB* 400 MG PO SCH ×2 (10:38→22:23)
[2019-06-03] MEDS: Demeclocycline TAB* 150 MG PO SCH ×2 (10:38→22:23)
[2019-06-03] MEDS: SILDENAFIL 20 MG PO SCH (10:38)
[2019-06-03] MEDS: Sodium Chloride TAB* 1 GM PO SCH ×2 (10:46→22:23)
[2019-06-03] MEDS: Acetaminophen TAB* 325 MG PO PRN (13:30)
[2019-06-03] MEDS: cefTRIAXone(*) 1 GM in NS 0.9% 50 ML* 50 ML IVPB SCH (16:46)
[2019-06-03] MEDS: Enoxaparin(*) 40 MG/0.4 ML SYR SUBCUT SCH (16:46)
[2019-06-03] MEDS: Latanoprost 0.005%* 2.5 ml BTL BOTH EYES SCH (22:24)
[2019-06-04 04:59] LABS: ABS Monocytes 0.8 10^3/ul (0-0.8); ABS Neutrophils 2.6 10^3/ul (1.5-7.7); Hematocrit 33 % (42-52); Lymphocyte % 21.9 %; Mean Corpuscular HGB Conc 34 g/dL (31-36); Mean Corpuscular Hemoglobin 28 pg (27-31); Mean Corpuscular Volume 82 fL (80-94); Mean Platelet Volume 6.5 fL (7.4-10.4); Platelet Count 168 10^3/uL (150-450); Red Blood Count 3.95 10^6 /uL (4.18-5.48); Red Cell Distribution Width 16 % (10-15); White Blood Count 4.4 10^3/uL (3.5-10.8)
[2019-06-04 05:16] LABS: BUN/Creatinine Ratio 13.8 (8-20); C Reactive Protein 23.21 mg/L (<8.01); Calcium 10.8 mg/dL (8.6-10.3); EGFR African American 112.8 (>60); EGFR Non-African American 93.3 (>60); Magnesium 1.6 mg/dL (1.9-2.7); Potassium 3.3 mmol/L (3.5-5.0)
[2019-06-04] MEDS: Potassium Chlor TAB* 20 MEQ TAB.ER PO SCH ×2 (08:58→20:37)
[2019-06-04] MEDS: Finasteride TAB* 5 MG PO SCH (09:00)
[2019-06-04] MEDS: Clopidogrel TAB* 75 MG PO SCH (09:00)
[2019-06-04] MEDS: Sodium Chloride TAB* 1 GM PO SCH (09:00)
[2019-06-04] MEDS: Magnesium Oxide TAB* 400 MG PO SCH ×2 (09:01→20:36)
[2019-06-04] MEDS: Gabapentin CAP(*) 300 MG PO SCH ×3 (09:01→20:37)
[2019-06-04] MEDS: Pantoprazole TAB * 40 MG TAB PO SCH (09:01)
[2019-06-04] MEDS: Vitamin THERAPEUTIC TAB PO SCH (09:04)
[2019-06-04] MEDS: Atorvastatin* 40 MG TAB PO SCH (09:04)
[2019-06-04] MEDS: predniSONE TAB* 5 MG PO SCH (09:04)
[2019-06-04] MEDS: levETIRAcetam TAB* 500 MG PO SCH ×2 (09:05→20:36)
[2019-06-04] MEDS: SILDENAFIL 20 MG PO SCH (09:06)
[2019-06-04] MEDS: Demeclocycline TAB* 150 MG PO SCH ×2 (09:07→20:38)
[2019-06-04] MEDS ORDERED: Magnesium Sulfate IV* 3 GM in NS 0.9% 100 ML* 100 ML IVPB ONE (09:22)
[2019-06-04] MEDS ORDERED: NS 0.9% 100 ML* 100 ML ONE (10:34)
[2019-06-04] MEDS ORDERED: Potassium Chlor TAB* 20 MEQ TAB.ER PO ONE (12:00)
[2019-06-04 13:31] LABS: Urine Appearance Cloudy; Urine Bacteria 1+ (Absent); Urine Bilirubin Negative (Negative); Urine Blood Negative (Negative); Urine Color Yellow; Urine Glucose Negative (Negative); Urine Ketones Negative (Negative); Urine Nitrite Negative (Negative); Urine Protein Negative (Negative); Urine Red Blood Cell Trace(0-2/hpf) (Absent); Urine Specific Gravity 1.009 (1.010-1.030); Urine Urobilinogen Negative (Negative); Urine White Blood Cell 3+(>20/hpf) (Absent)
--- NOTE | 2019-06-04 14:53 | EEG ---
ELECTROENCEPHALOGRAPHY: DATE OF STUDY: 06/04/19 ORDERED BY: Dr. May Castillo. CLINICAL PROBLEM: Mr. Tong is a 78-year-old man with history of weakness and confusion. This EEG was obtained to evaluate for epileptiform abnormalities or electrographic seizures. The patient has history of epilepsy. CT of the head was done, which showed no acute intracranial pathology. Chronic small vessel ischemic changes. MEDICATIONS: 1. Keppra 500 mg b.i.d. 2. Gabapentin 600 mg p.o. t.i.d. 3. Florinef 0.1 mg p.o. daily. DURATION OF RECORDIN:56 to 10:34. CLINICAL STATE: Awake and drowsy. REPORT: The background consisted of a mixed frequency slowing in the delta and theta range with appropriate organization and clearly defined anterior- posterior voltage gradients. There was a slow waking background of 8 Hz, which was symmetrical and showed normal reactivity. There were intermittent high amplitude, independent left and right frontotemporal delta slowing seen throughout the recording lasting for 1-2 seconds. Hyperventilation and photic stimulation were not performed. EKG showed a normal sinus rhythm with a rate of 70 beats per minute. Throughout the recording, there were no electrographic seizures. CLINICAL IMPRESSION: This is an abnormal awake and drowsy EEG due to diffuse slowing, slow posterior dominant rhythm, and independent paroxysms of frontotemporal delta slowing. These findings are suggestive of mild diffuse encephalopathy with bilateral frontotemporal neuronal dysfunction, which can be seen in the setting of cerebral atrophy. There were no epileptiform discharges or electrographic seizures. Clinical correlation is recommended. [id number]/[facility] #: [id number] [facility]
[2019-06-04] MEDS: Enoxaparin(*) 40 MG/0.4 ML SYR SUBCUT SCH (14:59)
[2019-06-04] MEDS: Acetaminophen TAB* 325 MG PO PRN (20:42)
[2019-06-04] MEDS: Latanoprost 0.005%* 2.5 ml BTL BOTH EYES SCH (20:47)
[2019-06-05 07:08] LABS: BUN/Creatinine Ratio 16.1 (8-20); Calcium 10.3 mg/dL (8.6-10.3); EGFR African American 94.8 (>60); EGFR Non-African American 78.4 (>60); Magnesium 1.7 mg/dL (1.9-2.7)
[2019-06-05] MEDS: Sodium Chloride TAB* 1 GM PO SCH (09:01)
[2019-06-05] MEDS: Demeclocycline TAB* 150 MG PO SCH ×2 (09:01→21:46)
[2019-06-05] MEDS: Atorvastatin* 40 MG TAB PO SCH (09:01)
[2019-06-05] MEDS: Potassium Chlor TAB* 20 MEQ TAB.ER PO SCH ×2 (09:01→21:48)
[2019-06-05] MEDS: levETIRAcetam TAB* 500 MG PO SCH ×2 (09:02→21:44)
[2019-06-05] MEDS: Vitamin THERAPEUTIC TAB PO SCH (09:02)
[2019-06-05] MEDS: Finasteride TAB* 5 MG PO SCH (09:02)
[2019-06-05] MEDS: Clopidogrel TAB* 75 MG PO SCH (09:02)
[2019-06-05] MEDS: Magnesium Oxide TAB* 400 MG PO SCH ×2 (09:02→21:46)
[2019-06-05] MEDS: predniSONE TAB* 5 MG PO SCH (09:02)
[2019-06-05] MEDS: Gabapentin CAP(*) 300 MG PO SCH ×3 (09:02→21:37)
[2019-06-05] MEDS: Pantoprazole TAB * 40 MG TAB PO SCH (09:02)
[2019-06-05] MEDS ORDERED: Magnesium Sulfate IV* 3 GM in NS 0.9% 100 ML* 100 ML IVPB ONE (10:00)
[2019-06-05] MEDS: SILDENAFIL 20 MG PO SCH (11:00)
[2019-06-05] MEDS: Enoxaparin(*) 40 MG/0.4 ML SYR SUBCUT SCH (14:37)
[2019-06-05] MEDS: Acetaminophen TAB* 325 MG PO PRN (14:39)
[2019-06-05] MEDS: Latanoprost 0.005%* 2.5 ml BTL BOTH EYES SCH (21:34)
[2019-06-06] MEDS: Acetaminophen TAB* 325 MG PO PRN ×3 (03:13→23:44)
[2019-06-06 06:06] LABS: ABS Eosinophils 0.1 10^3/ul (0-0.6); ABS Lymphocytes 0.9 10^3/ul (1.0-4.8); ABS Monocytes 0.8 10^3/ul (0-0.8); ABS Neutrophils 3.1 10^3/ul (1.5-7.7); Eosinophil % 1.2 %; Hematocrit 30 % (42-52); Lymphocyte % 18.5 %; Mean Corpuscular HGB Conc 34 g/dL (31-36); Mean Corpuscular Hemoglobin 28 pg (27-31); Mean Corpuscular Volume 82 fL (80-94); Mean Platelet Volume 6.6 fL (7.4-10.4); Nucleated Red Blood Cells % 0.1; Platelet Count 161 10^3/uL (150-450); Red Blood Count 3.61 10^6 /uL (4.18-5.48); Red Cell Distribution Width 16 % (10-15)
[2019-06-06 06:16] LABS: BUN/Creatinine Ratio 17.9 (8-20); Calcium 10.2 mg/dL (8.6-10.3); EGFR African American 106.7 (>60); EGFR Non-African American 88.1 (>60); Potassium 4.3 mmol/L (3.5-5.0)
[2019-06-06 08:54] LABS: Magnesium 1.6 mg/dL (1.9-2.7)
[2019-06-06] MEDS: Gabapentin CAP(*) 300 MG PO SCH ×3 (09:30→21:02)
[2019-06-06] MEDS: Potassium Chlor TAB* 20 MEQ TAB.ER PO SCH ×2 (09:31→21:02)
[2019-06-06] MEDS: Pantoprazole TAB * 40 MG TAB PO SCH (09:31)
[2019-06-06] MEDS: Finasteride TAB* 5 MG PO SCH (09:31)
[2019-06-06] MEDS: Magnesium Oxide TAB* 400 MG PO SCH ×2 (09:31→21:03)
[2019-06-06] MEDS: Clopidogrel TAB* 75 MG PO SCH (09:31)
[2019-06-06] MEDS: Vitamin THERAPEUTIC TAB PO SCH (09:31)
[2019-06-06] MEDS: levETIRAcetam TAB* 500 MG PO SCH ×2 (09:31→21:02)
[2019-06-06] MEDS: predniSONE TAB* 5 MG PO SCH (09:31)
[2019-06-06] MEDS: Atorvastatin* 40 MG TAB PO SCH (09:31)
[2019-06-06] MEDS: Sodium Chloride TAB* 1 GM PO SCH (09:31)
[2019-06-06] MEDS: SILDENAFIL 20 MG PO SCH (09:31)
[2019-06-06] MEDS: Enoxaparin(*) 40 MG/0.4 ML SYR SUBCUT SCH (14:34)
[2019-06-06] MEDS: Latanoprost 0.005%* 2.5 ml BTL BOTH EYES SCH (21:03)
[2019-06-06] MEDS ORDERED: cefTRIAXone(*) 1 GM in NS 0.9% 50 ML* 50 ML IVPB ONE (23:40)
[2019-06-07 00:55] LABS: Hematocrit 35 % (42-52); Hemoglobin 11.8 g/dL (14.0-18.0); Mean Corpuscular HGB Conc 34 g/dL (31-36); Mean Corpuscular Hemoglobin 27 pg (27-31); Mean Corpuscular Volume 81 fL (80-94); Mean Platelet Volume 6.5 fL (7.4-10.4); Platelet Count 177 10^3/uL (150-450); Red Blood Count 4.33 10^6 /uL (4.18-5.48); Red Cell Distribution Width 17 % (10-15); White Blood Count 11.2 10^3/uL (3.5-10.8)
[2019-06-07 01:08] LABS: Urine Appearance Clear; Urine Bacteria Absent (Absent); Urine Bilirubin Negative (Negative); Urine Blood 1+ (Negative); Urine Color Yellow; Urine Glucose Negative (Negative); Urine Ketones Negative (Negative); Urine Nitrite Negative (Negative); Urine Protein Negative (Negative); Urine Red Blood Cell 2+(6-10/hpf) (Absent); Urine Specific Gravity 1.009 (1.010-1.030); Urine Urobilinogen Negative (Negative); Urine White Blood Cell 1+(6-10/hpf) (Absent)
[2019-06-07 01:16] LABS: Albumin 3.3 g/dL (3.2-5.2); Albumin/Globulin Ratio 0.8 (1-3); BUN/Creatinine Ratio 17.8 (8-20); C Reactive Protein 17.09 mg/L (<8.01); Calcium 10.7 mg/dL (8.6-10.3); EGFR African American 98.5 (>60); EGFR Non-African American 81.4 (>60); Globulin 4.1 g/dL (2-4); Potassium 4.7 mmol/L (3.5-5.0); Total Bilirubin 1.1 mg/dL (0.2-1.0); Total Protein 7.4 g/dL (6.4-8.9)
[2019-06-07] MEDS: SILDENAFIL 20 MG PO SCH (10:10)
[2019-06-07] MEDS: Acetaminophen TAB* 325 MG PO PRN ×2 (10:11→20:26)
[2019-06-07] MEDS: Atorvastatin* 40 MG TAB PO SCH (10:12)
[2019-06-07] MEDS: Pantoprazole TAB * 40 MG TAB PO SCH (10:12)
[2019-06-07] MEDS: Finasteride TAB* 5 MG PO SCH (10:12)
[2019-06-07] MEDS: Gabapentin CAP(*) 300 MG PO SCH ×3 (10:12→20:24)
[2019-06-07] MEDS: Vitamin THERAPEUTIC TAB PO SCH (10:13)
[2019-06-07] MEDS: Sodium Chloride TAB* 1 GM PO SCH (10:13)
[2019-06-07] MEDS: Potassium Chlor TAB* 20 MEQ TAB.ER PO SCH ×2 (10:13→20:24)
[2019-06-07] MEDS: Clopidogrel TAB* 75 MG PO SCH (10:14)
[2019-06-07] MEDS: predniSONE TAB* 5 MG PO SCH (10:14)
[2019-06-07] MEDS: Magnesium Oxide TAB* 400 MG PO SCH ×2 (10:14→20:24)
[2019-06-07] MEDS: levETIRAcetam TAB* 500 MG PO SCH ×2 (10:14→20:25)
[2019-06-07] MEDS: Enoxaparin(*) 40 MG/0.4 ML SYR SUBCUT SCH (16:31)
[2019-06-07] MEDS: Latanoprost 0.005%* 2.5 ml BTL BOTH EYES SCH (21:37)
[2019-06-08 07:55] LABS: ABS Eosinophils 0.1 10^3/ul (0-0.6); ABS Lymphocytes 0.8 10^3/ul (1.0-4.8); ABS Monocytes 0.8 10^3/ul (0-0.8); ABS Neutrophils 3.8 10^3/ul (1.5-7.7); Eosinophil % 1.7 %; Hematocrit 29 % (42-52); Hemoglobin 10.3 g/dL (14.0-18.0); Lymphocyte % 14.3 %; Mean Corpuscular HGB Conc 35 g/dL (31-36); Mean Corpuscular Hemoglobin 29 pg (27-31); Mean Corpuscular Volume 82 fL (80-94); Mean Platelet Volume 6.9 fL (7.4-10.4); Platelet Count 159 10^3/uL (150-450); Red Blood Count 3.58 10^6 /uL (4.18-5.48); Red Cell Distribution Width 17 % (10-15); White Blood Count 5.5 10^3/uL (3.5-10.8)
[2019-06-08 08:02] LABS: Albumin 2.9 g/dL (3.2-5.2); Albumin/Globulin Ratio 0.9 (1-3); BUN/Creatinine Ratio 22.1 (8-20); C Reactive Protein 64.79 mg/L (<8.01); Calcium 9.7 mg/dL (8.6-10.3); EGFR African American 103.8 (>60); EGFR Non-African American 85.8 (>60); Globulin 3.3 g/dL (2-4); Magnesium 1.5 mg/dL (1.9-2.7); Phosphorus 3.3 mg/dL (2.5-5.0); Potassium 4.1 mmol/L (3.5-5.0); Total Bilirubin 0.9 mg/dL (0.2-1.0); Total Protein 6.2 g/dL (6.4-8.9)
[2019-06-08] MEDS: Potassium Chlor TAB* 20 MEQ TAB.ER PO SCH ×2 (08:48→21:24)
[2019-06-08] MEDS: Pantoprazole TAB * 40 MG TAB PO SCH (08:48)
[2019-06-08] MEDS: Gabapentin CAP(*) 300 MG PO SCH ×3 (08:48→21:24)
[2019-06-08] MEDS: levETIRAcetam TAB* 500 MG PO SCH ×2 (08:48→21:24)
[2019-06-08] MEDS: Clopidogrel TAB* 75 MG PO SCH (08:49)
[2019-06-08] MEDS: Magnesium Oxide TAB* 400 MG PO SCH ×2 (08:49→21:24)
[2019-06-08] MEDS: Vitamin THERAPEUTIC TAB PO SCH (08:49)
[2019-06-08] MEDS: predniSONE TAB* 5 MG PO SCH (08:49)
[2019-06-08] MEDS: Sodium Chloride TAB* 1 GM PO SCH (08:49)
[2019-06-08] MEDS: Finasteride TAB* 5 MG PO SCH (08:49)
[2019-06-08] MEDS: Atorvastatin* 40 MG TAB PO SCH (08:50)
[2019-06-08] MEDS: SILDENAFIL 20 MG PO SCH (08:50)
[2019-06-08] MEDS ORDERED: Iohexol 300* (CONTRAST) 10 ML SDV IV ONE (13:45)
[2019-06-08] MEDS: Enoxaparin(*) 40 MG/0.4 ML SYR SUBCUT SCH (14:10)
[2019-06-08] MEDS: Acetaminophen TAB* 325 MG PO PRN (19:44)
[2019-06-08] MEDS: Latanoprost 0.005%* 2.5 ml BTL BOTH EYES SCH (21:24)
[2019-06-09 05:57] LABS: ABS Basophils 0.1 10^3/ul (0-0.2); ABS Eosinophils 0.1 10^3/ul (0-0.6); ABS Lymphocytes 1.1 10^3/ul (1.0-4.8); ABS Neutrophils 3.4 10^3/ul (1.5-7.7); Eosinophil % 1.8 %; Hematocrit 30 % (42-52); Hemoglobin 10.3 g/dL (14.0-18.0); Mean Corpuscular HGB Conc 35 g/dL (31-36); Mean Corpuscular Hemoglobin 28 pg (27-31); Mean Corpuscular Volume 81 fL (80-94); Mean Platelet Volume 6.4 fL (7.4-10.4); Nucleated Red Blood Cells % 0.1; Platelet Count 183 10^3/uL (150-450); Red Blood Count 3.69 10^6 /uL (4.18-5.48); Red Cell Distribution Width 17 % (10-15); White Blood Count 5.6 10^3/uL (3.5-10.8)
[2019-06-09 06:18] LABS: Albumin/Globulin Ratio 0.9 (1-3); BUN/Creatinine Ratio 20.2 (8-20); C Reactive Protein 34.67 mg/L (<8.01); Calcium 10.1 mg/dL (8.6-10.3); EGFR African American 106.7 (>60); EGFR Non-African American 88.1 (>60); Globulin 3.3 g/dL (2-4); Magnesium 1.5 mg/dL (1.9-2.7); Potassium 4.5 mmol/L (3.5-5.0); Total Protein 6.3 g/dL (6.4-8.9)
[2019-06-09] MEDS: SILDENAFIL 20 MG PO SCH (09:55)
[2019-06-09] MEDS: Sodium Chloride TAB* 1 GM PO SCH (09:57)
[2019-06-09] MEDS: Clopidogrel TAB* 75 MG PO SCH (09:57)
[2019-06-09] MEDS: Pantoprazole TAB * 40 MG TAB PO SCH (09:57)
[2019-06-09] MEDS: Vitamin THERAPEUTIC TAB PO SCH (09:57)
[2019-06-09] MEDS: Atorvastatin* 40 MG TAB PO SCH (09:57)
[2019-06-09] MEDS: levETIRAcetam TAB* 500 MG PO SCH ×2 (09:57→22:52)
[2019-06-09] MEDS: Magnesium Oxide TAB* 400 MG PO SCH ×2 (09:58→22:49)
[2019-06-09] MEDS: predniSONE TAB* 5 MG PO SCH (09:58)
[2019-06-09] MEDS: Finasteride TAB* 5 MG PO SCH (09:58)
[2019-06-09] MEDS: Gabapentin CAP(*) 300 MG PO SCH ×3 (09:58→22:51)
[2019-06-09] MEDS: Potassium Chlor TAB* 20 MEQ TAB.ER PO SCH ×2 (09:59→22:48)
[2019-06-09 11:26] LABS: Calcitriol 42 pg/mL (18-64)
--- NOTE | 2019-06-09 13:09 | CONS ---
CONSULTATION REPORT: DATE OF CONSULT: 06/09/19 REQUESTING PHYSICIAN: May Castillo MD CONSULTING SERVICE: Infectious Disease. REASON FOR CONSULTATION: Fever, elevated C-reactive protein. IMPRESSION: 1. Admitted with encephalopathy in the fall and developed fever evening of 03/19 after being in the hospital about 4 days. The cause of the fever could be a pneumonia. He has right middle lobe ground glass opacification. CT scan without much in the way of respiratory symptoms, he does have palpable adenopathy and bilateral axilla and bilateral inguinal region and some enlarged nodes in the celiac chain and the left of the aorta and the retroperitoneum. This could be reactive change. They are nontender and mobile, which suggest benign etiology. However, they are rather enlarged and other considerations include a lymphoma, less likely a metastatic disease. He does have hypercalcemia, which is mild and so granulomatous disease is a consideration as the cause of his hypercalcemia and lymphadenopathy. 2. History of right [id number] amputation due to peripheral vascular disease and with left third toe small ulcer without significant sign of infection. 3. Chronic low-dose corticosteroid use for connective tissue disease, ankylosing spondylitis versus polymyalgia rheumatica. RECOMMENDATION: I agree with holding antibiotics. Blood cultures have been negative as was his urine culture. Assuming no other cause is found for the fever and pending his hypercalcemia workup, I think we should consider further evaluation of the lymph node with tissue sampling for histology and acid fast cultures. HISTORY OF PRESENT ILLNESS: This is a 78-year-old man admitted with change in mental status. He cannot recall the details of the events that led to his admission, which are obtained aside from discussion with Dr. Castillo and review of the medical records. He had become increasingly confused and disoriented and had fallen at home, so he came to the hospital on the 06/02/19. He was afebrile at that time. He had a chest x-ray on the 06/02/19, showed hyperinflated lung muir with chronic interstitial changes. He had no leukocytosis. He had mild anemia. Calcium was 11.3. PTH 1.5. LFTs were normal except for initial bilirubin of 1.1. Initial CRP was 22 and it peaked at about 64 on 06/08/19 after a fever of 102 the night before and then down to 34 today. He had a dose of ceftriaxone the night of this fever. His blood cultures on 06/07/19 are negative. Urine cultures of the 06/02/19, 06/04/19, and 06/07/19 are negative. He denies any pain, nausea, vomiting, diarrhea, abdominal pain, dysuria, cough, chest pain, trouble breathing, or sinus symptoms. He does not know of any past positive tuberculosis testing. PAST MEDICAL HISTORY: 1. Chronic corticosteroid treatment for polymyalgia rheumatica versus ankylosing spondylitis. 2. Hypertension. 3. Peripheral vascular disease, status post right hurss-qnn-audq amputation. 4. Osteoarthritis. 5. Osteoporosis. 6. Lumbar radiculopathy. 7. Cutaneous lupus. 8. Seizure disorder. 9. Adrenal insufficiency. 10. Anemia of chronic disease. 11. Status post bilateral rotator cuff repair. 12. Status post lateral elbow release. 13. Status post tonsillectomy. 14. Status post hydrocele repair. MEDICATIONS: 1. Tylenol. 2. Albuterol. 3. Lipitor. 4. Plavix. 5. Enoxaparin. 6. Finasteride. 7. Gabapentin. 8. Levetiracetam. 9. Magnesium oxide. 10. Zofran. 11. Pantoprazole. 12. Potassium. 13. Prednisone 5 mg a day. 14. Sildenafil. 15. Multivitamin. 16. Sodium chloride. ALLERGIES: FOSAMAX, AZATHIOPRINE, BENAZEPRIL, CELECOXIB, SULFA, CLINDAMYCIN, METHOTREXATE, CILOSTAZOL, GLUCOSAMINE, HYDROCHLOROTHIAZIDE, HYDROXYCHLOROQUINE, METHOTREXATE, MORPHINE, TRIAMTERENE. FAMILY HISTORY: Father from stroke. Mother from heart failure. No known tuberculosis. SOCIAL HISTORY: He lives with his outside of [place]. Retired from [employer]. He is a past smoker, nondrinker. REVIEW OF SYSTEMS: All negative except as noted above to the 12-point review of systems. PHYSICAL EXAM: Vital Signs: Temperature 37, heart rate 70, respiratory rate 16 , blood pressure 107/58, oxygen saturation 100% on room air. In general, he is awake, not in distress. Neurologic: He is oriented x3, follows all commands. HEENT: There is no conjunctival hemorrhage. Oropharynx without lesions. Neck is supple without mass. Lymph Nodes: There are no cervical, supraclavicular, or epitrochlear lymph nodes. There are bilateral axillary and inguinal nodes that are around 1 cm, mobile, nontender without overlying erythema. Heart: Regular rate and rhythm without murmurs, rubs, or gallops. Lungs are clear to auscultation bilaterally. Abdomen is soft, nontender, and nondistended. There are bowel sounds present. Skin: There is no rash or splinter hemorrhage. Musculoskeletal: Left third toe, there is a 3-mm eschar at the tip. Second through fifth toes on the left have slight erythema. Foot is warm. There is no palpable dorsalis pedis pulse in the left. Right leg amputation site is well healed. DIAGNOSTIC STUDIES/LAB DATA: Creatinine 0.8, magnesium 1.5, CRP 34. White blood cell count 5, hemoglobin 10, platelets 183. Please see impressions and recommendations outlined above. Thank you for asking me to see Mr. Tong in consultation. [id number]/[facility] #: [id number] [facility]TD[facility]
[2019-06-09 13:24] LABS: Magnesium/Creatinine Ratio 0.143 mg/mg (>=0.035)
[2019-06-09] MEDS: Acetaminophen TAB* 325 MG PO PRN ×2 (13:25→22:49)
[2019-06-09] MEDS: Enoxaparin(*) 40 MG/0.4 ML SYR SUBCUT SCH (13:26)
[2019-06-09 17:52] LABS: Albumin 2.8 g/dL (3.4-4.7); Albumin/Globulin Ratio 0.81; Gamma Globulin 1.9 g/dL (0.6-1.6); Total Protein(PEP) 6.2 g/dL (6.3 - 7.9)
[2019-06-09] MEDS: Latanoprost 0.005%* 2.5 ml BTL BOTH EYES SCH (22:52)
[2019-06-10] MEDS: SILDENAFIL 20 MG PO SCH (09:44)
[2019-06-10] MEDS: Atorvastatin* 40 MG TAB PO SCH (09:44)
[2019-06-10] MEDS: levETIRAcetam TAB* 500 MG PO SCH ×2 (09:44→20:11)
[2019-06-10] MEDS: Vitamin THERAPEUTIC TAB PO SCH (09:45)
[2019-06-10] MEDS: Potassium Chlor TAB* 20 MEQ TAB.ER PO SCH ×2 (09:45→20:12)
[2019-06-10] MEDS: predniSONE TAB* 5 MG PO SCH (09:45)
[2019-06-10] MEDS: Magnesium Oxide TAB* 400 MG PO SCH ×2 (09:45→20:12)
[2019-06-10] MEDS: Gabapentin CAP(*) 300 MG PO SCH ×3 (09:45→20:11)
[2019-06-10] MEDS: Finasteride TAB* 5 MG PO SCH (09:45)
[2019-06-10] MEDS: Clopidogrel TAB* 75 MG PO SCH (09:45)
[2019-06-10] MEDS: Pantoprazole TAB * 40 MG TAB PO SCH (09:45)
[2019-06-10] MEDS: Sodium Chloride TAB* 1 GM PO SCH (09:45)
--- NOTE | 2019-06-10 10:14 | PN ---
Progress Note - Progress Note Date of Service: 06/10/19 SOAP: Subjective: CC: Fever and elevated CRP HPI: Mr. Smith is a 78 yo male with PMH significant for chronic steroid use secondary to PMR vs ankylosing spndylitis, HTN, PVD s/p right BKA, osteoarthritis, osteoporosis, cutaneous lupus, seizure disorder, adrenal insufficiency, lumbar radiculopathy, and anemia of chronic disease; who presented to the hospital with confusion. Denies fever, chills, cough, shortness of breath, nausea, vomiting or diarrhea. Objective: Vital Signs - 8 hr 06/10/19 06/10/19 06/10/19 03:15 03:50 07:15 Temperature 97.3 F 97.4 F Pulse Rate 53 66 Respiratory 17 17 16 Rate Blood Pressure 102/33 127/58 (mmHg) O2 Sat by Pulse 100 99 Oximetry Physical Exam: General: NAD, sitting up in a chair Neurological: Alert and Oriented HEENT: Moist MM, no thrush Cardiovascular: Heart rate regular Respiratory: Lung sounds clear ABD: Bowel sounds present; ABD soft, non tender and non distended Skin: No rash Laboratory Results - last 24 hr 06/03/19 06/06/19 06/07/19 05:22 05:09 00:20 Total Protein (PEP) 6.2 L Albumin (PEP) 2.8 L Albumin/Globulin (PEP) 0.81 Vljsm-1-Ymrxnfwep 0.3 Zmyzf-0-Zxwdtfasp 0.6 Jpuu-9-Yyfovphq 0.7 Gamma Globulins 1.9 H PEP Impression See comment Vit D 1,25-Dihydroxy 42 Urine Osmolality Ur Random Creat Conc 35 Ur Random Magnesium 5 U Magnesium/Creat Ratio 0.143 06/09/19 06/09/19 06/09/19 05:48 23:30 23:30 Serum Osmolality 287 Urine Osmolality 509 U Sodium Concentration 75 Microbiology 06/07/19 00:47 Aerobic Blood Culture - Preliminary Blood Venous No Growth Day 3 Anaerobic Blood Culture - Preliminary No Growth Day 3 06/07/19 00:47 Aerobic Blood Culture - Preliminary Blood Venous No Growth Day 3 Anaerobic Blood Culture - Preliminary No Growth Day 3 06/07/19 00:20 Urine Culture - Final Urine No Growth (<1,000 CFU/mL) 06/04/19 13:13 Urine Culture - Final Urine No Growth (<1,000 CFU/mL) 06/02/19 10:33 Urine Culture - Final Urine Assessment: 1. Fever. Chest CT with right middle lobe ground glass opacification and lymphadenopathy. Afebrile since 06/07/19. No leukocytosis. Denies cough. Urine culture with no growth x 3. Blood cultures with no growth, day 3. 2. PVD, S/P right BKA. Plan: Continue to hold ABX. Consider evaluation of lymphadenopathy with tissue sampling and acid fast cultures.
[2019-06-10] MEDS: Acetaminophen TAB* 325 MG PO PRN ×2 (10:45→20:11)
--- NOTE | 2019-06-10 13:16 | CONSULT ---
Consult Consult: Consult requested for Hypo-Mg/Hypo-Na/Hyper-Ca. He presented to the hospital with confusion. Found to have electrolyte abnormalities. sCr Normal HPI: Feels tired, disoriented to date but aware of place and person. Has no acute complaints no chest pain. No edema. Rt BKA s/p PVD. Past Medical History: HTN Dyslipidemia Chronic steroid use secondary to PMR vs ankylosing spondylitis PVD s/p right BKA Cutaneous lupus?! Sz disorder Adrenal insufficiency on Florinef! Anemia of chronic disease HomeMeds: Finasteride Calcium Carbonate/Vitamin D3 Albuterol HFA oxyCODONE predniSONE Demeclocycline 150 BID Gabapentin Multivitamin Atorvastatin Clopidogrel Fludrocortisone 1 tab qd Magnesium Oxide 400 BID Omeprazole KCl 10 Meq qd Sildenafil Sodium Chloride T2 gm BID levETIRAcetam InPt Meds: Albuterol Atorvastatin Clopidogrel Enoxaparin Finasteride Gabapentin Levetiracetam Magnesium Oxide 400 BID Multivitamins Ondansetron Pantoprazole Potassium Chloride 40 BID Prednisone 5 QD Sildenafil Citrate Sodium Chloride 2 gm daily Allergies, Social History,Family History &Surgical History:Reviewed 12-Point Review of Systemobtained: Negative exceptpertinent positives: Constitutional no fever no weight loss Eyes No blurry vision CV no shortness of breath no chest pain no syncope no edema Resp No shortness of breath no cough no wheezing G.I. no diarrhea no nausea no vomiting no pain no blood per rectum no burning no obstruction symptoms Skin no rash Neurology No seizures or neurologic deficit Endocrine no diabetes Hem/Lymp no bleeding no lymph nodes Immun/Allergy no allergic actions Musculoskeletal Rt BKA Psych no anxiety no depression no hallucination Objective: Vital Signs Temp 97.4 F 06/10/19 07:15 Pulse 78 06/10/19 11:25 Resp 16 06/10/19 11:47 BP 92/52 06/10/19 11:25 Pulse Ox 95 06/10/19 11:25 10 Pointmulti systemexam: Negative except pertinent positive Vital Signs: Constitutional Alert Oriented x 3 Abdomen SoftAbdomen No Ascites Heart: NSR,No LE Edema, No murmur Lungs: Clear to auscultation, No Crackles Extremities: No edema, no rash, Rt BKA Laboratory Reviewed WBC 5.6 10^3/uL (3.5-10.8) 06/09/19 05:48 RBC 3.69 10^6 /uL (4.18-5.48) L 06/09/19 05:48 Hgb 10.3 g/dL (14.0-18.0) L 06/09/19 05:48 Hct 30 % (42-52) L 06/09/19 05:48 Plt Count 183 10^3/uL (150-450) 06/09/19 05:48 Sodium 131 mmol/L (135-145) L 06/09/19 05:48 Potassium 4.5 mmol/L (3.5-5.0) 06/09/19 05:48 Chloride 106 mmol/L (101-111) 06/09/19 05:48 Carbon Dioxide 22 mmol/L (22-32) 06/09/19 05:48 Anion Gap 3 mmol/L (2-11) 06/09/19 05:48 BUN 17 mg/dL (6-24) 06/09/19 05:48 Creatinine 0.84 mg/dL (0.67-1.17) 06/09/19 05:48 Est GFR (Non-Af Amer) 88.1 (>60) 06/09/19 05:48 Glucose 90 mg/dL (70-100) 06/09/19 05:48 Serum Osmolality 287 mOsm/kg (275-295) 06/09/19 05:48 Lactic Acid 1.0 mmol/L (0.5-2.0) 06/07/19 00:48 Calcium 10.1 mg/dL (8.6-10.3) 06/09/19 05:48 Ionized Calcium 1.41 mmol/L (1.16-1.32) H 06/09/19 05:48 Phosphorus 3.3 mg/dL (2.5-5.0) 06/08/19 06:37 Magnesium 1.5 mg/dL (1.9-2.7) L 06/09/19 05:48 Total Bilirubin 1.00 mg/dL (0.2-1.0) 06/09/19 05:48 AST 20 U/L (13-39) 06/09/19 05:48 ALT 13 U/L (7-52) 06/09/19 05:48 Alkaline Phosphatase 64 U/L (34-104) 06/09/19 05:48 C-Reactive Protein 34.67 mg/L (<8.01) H 06/09/19 05:48 Total Protein 6.3 g/dL (6.4-8.9) L 06/09/19 05:48 Albumin 3.0 g/dL (3.2-5.2) L 25-OH Vitamin D Total 31.3 ng/mL (20-50) 06/03/19 05:22 Vit D 1,25-Dihydroxy 42 pg/mL (18-64) 06/03/19 05:22 TSH 1.49 mcIU/mL (0.34-5.60) 06/02/19 08:38 PTH Intact 1.6 pg/mL (12-88) L 06/03/19 05:22 Calcium (PTH Intact) 10.3 mg/dL (8.6-10.3) 06/03/19 05:22 Urine Color Yellow 06/07/19 00:20 Urine Appearance Clear 06/07/19 00:20 Urine pH 7.0 (5-9) 06/07/19 00:20 Ur Specific [place] 1.009 (1.010-1.030) L 06/07/19 00:20 Urine Protein Negative (Negative) 06/07/19 00:20 Urine Ketones Negative (Negative) 06/07/19 00:20 Urine Blood 1+ (Negative) A 06/07/19 00:20 Urine Nitrate Negative (Negative) 06/07/19 00:20 Urine Bilirubin Negative (Negative) 06/07/19 00:20 Urine Urobilinogen Negative (Negative) 06/07/19 00:20 Ur Leukocyte Esterase Negative (Negative) 06/07/19 00:20 Urine WBC (Auto) 1+(6-10/hpf) (Absent) A 06/07/19 00:20 Urine RBC (Auto) 2+(6-10/hpf) (Absent) A 06/07/19 00:20 Urine Osmolality 509 mOsm/kg (100-1150) 06/09/19 23:30 Ur Random Creat Conc 35 mg/dL 06/07/19 00:20 Ur Random Magnesium 5 mg/dL 06/07/19 00:20 Ur Creatinine Concen 37.24 mg/dL 06/07/19 00:20 U Sodium Concentration 75 mmol/L 06/09/19 23:30 Urine Glucose Negative (Negative) 06/07/19 00:20 U Magnesium/Creat Ratio 0.143 mg/mg (>=0.035) 06/07/19 00:20 Assessment and Plan: *sCr Normal. UA -ve Ptn *Hypo-Na with High Daniella and UOsm on NaCl and Demeclocycline, likely SIADH? Chest CT Rt middle lobe ground glass opacification and lymphadenopathy? Lung Pathology vs CA. *Hx of Hyper-Ca 2/2 to Ca & Vit D. Ca now Ok. * Hypo-Mg is mild, 2/2 to PPIs. Stop PPIs and continue Mg supplement to replenish stores. UMag low, PPIs interfere with GI Absorption of Mg FeMg= %100 X UMgXsCr/0.7XMgXUCr = 10%, Likely have another etiology, i.e renal Mg wasting that needs Treatment with Mg supplement.
[2019-06-10] MEDS: Enoxaparin(*) 40 MG/0.4 ML SYR SUBCUT SCH (13:57)
[2019-06-10] MEDS: Latanoprost 0.005%* 2.5 ml BTL BOTH EYES SCH (23:46)
[2019-06-11 05:36] LABS: Hematocrit 30 % (42-52); Hemoglobin 10.3 g/dL (14.0-18.0); Mean Corpuscular HGB Conc 34 g/dL (31-36); Mean Corpuscular Hemoglobin 28 pg (27-31); Mean Corpuscular Volume 82 fL (80-94); Mean Platelet Volume 6.5 fL (7.4-10.4); Platelet Count 213 10^3/uL (150-450); Red Blood Count 3.72 10^6 /uL (4.18-5.48); Red Cell Distribution Width 17 % (10-15); White Blood Count 5.6 10^3/uL (3.5-10.8)
[2019-06-11 05:55] LABS: Albumin 3.2 g/dL (3.2-5.2); Albumin/Globulin Ratio 0.9 (1-3); BUN/Creatinine Ratio 22.1 (8-20); C Reactive Protein 22.76 mg/L (<8.01); Calcium 9.9 mg/dL (8.6-10.3); EGFR African American 117.9 (>60); EGFR Non-African American 97.5 (>60); Globulin 3.6 g/dL (2-4); Magnesium 1.5 mg/dL (1.9-2.7); Phosphorus 3.7 mg/dL (2.5-5.0); Potassium 4.5 mmol/L (3.5-5.0); Total Bilirubin 0.9 mg/dL (0.2-1.0); Total Protein 6.8 g/dL (6.4-8.9)
[2019-06-11] MEDS: SILDENAFIL 20 MG PO SCH (09:02)
[2019-06-11] MEDS: Clopidogrel TAB* 75 MG PO SCH (09:03)
[2019-06-11] MEDS: predniSONE TAB* 5 MG PO SCH (09:03)
[2019-06-11] MEDS: Sodium Chloride TAB* 1 GM PO SCH (09:03)
[2019-06-11] MEDS: Finasteride TAB* 5 MG PO SCH (09:03)
[2019-06-11] MEDS: Vitamin THERAPEUTIC TAB PO SCH (09:03)
[2019-06-11] MEDS: Atorvastatin* 40 MG TAB PO SCH (09:04)
[2019-06-11] MEDS: levETIRAcetam TAB* 500 MG PO SCH ×2 (09:04→20:53)
[2019-06-11] MEDS: Potassium Chlor TAB* 20 MEQ TAB.ER PO SCH ×2 (09:04→20:53)
[2019-06-11] MEDS: Gabapentin CAP(*) 300 MG PO SCH ×3 (09:04→20:56)
[2019-06-11] MEDS: Magnesium Oxide TAB* 400 MG PO SCH ×2 (09:04→20:55)
[2019-06-11] MEDS: Acetaminophen TAB* 325 MG PO PRN ×3 (09:05→20:55)
--- NOTE | 2019-06-11 09:17 | PN ---
Progress Note - Progress Note Date of Service: 06/11/19 Note: FU for Hypo-Mg/Hypo-Na/Hyper-Ca. Still has some confusion. Had an accident of urne incontinence last night once, new to him! sCr Normal. Na & Ca better. Mg still 1.5 despite stopping PPIs. InPt Meds: Acetaminophen (Tylenol Tab*) 650 mg PO Q6H PRN PRN Reason: MILD PAIN or TEMP > 100.4 Last Admin: 06/11/19 09:05 Dose: 650 mg Albuterol (Ventolin Hfa Inhaler*) 2 puff INH Q4H PRN PRN Reason: DYSPNEA Atorvastatin Calcium (Lipitor*) 40 mg PO DAILY [facility] Last Admin: 06/11/19 09:04 Dose: 40 mg Clopidogrel Bisulfate (Plavix Tab*) 75 mg PO DAILY [facility] Last Admin: 06/11/19 09:03 Dose: 75 mg Enoxaparin Sodium (Lovenox(*)) 40 mg SUBCUT Q24H [facility] Last Admin: 06/10/19 13:57 Dose: 40 mg Finasteride (Proscar Tab*) 5 mg PO DAILY [facility] Last Admin: 06/11/19 09:03 Dose: 5 mg Gabapentin (Neurontin Cap(*)) 600 mg PO TID [facility] Last Admin: 06/11/19 09:04 Dose: 600 mg Latanoprost (Xalatan 0.005%*) 1 drop BOTH EYES BEDTIME [facility]; Protocol Last Admin: 06/10/19 23:46 Dose: 1 drop Levetiracetam (Keppra Tab*) 500 mg PO BID [facility] Last Admin: 06/11/19 09:04 Dose: 500 mg Magnesium Oxide (Magox 400 Tab*) 400 mg PO BID [facility] Last Admin: 06/11/19 09:04 Dose: 400 mg Multivitamins (Theragran Tab*) 1 tab PO DAILY [facility] Last Admin: 06/11/19 09:03 Dose: 1 tab Ondansetron HCl (Zofran Inj*) 4 mg IV Q6H PRN PRN Reason: NAUSEA Potassium Chloride (Klor Con Er Tab*) 40 meq PO BID [facility] Last Admin: 06/11/19 09:04 Dose: 40 meq Prednisone (Deltasone Tab*) 5 mg PO DAILY [facility] Last Admin: 06/11/19 09:03 Dose: 5 mg Sildenafil Citrate (Revatio (Nf)) 10 mg PO DAILY [facility]; Protocol Last Admin: 06/11/19 09:02 Dose: 10 mg Sodium Chloride (Sodium Chloride Tab*) 2 gm PO DAILY [facility] Last Admin: 06/11/19 09:03 Dose: 2 gm 06/10/19 06/11/19 06/11/19 23:47 03:07 07:18 Temperature 97.4 F 96.8 F Pulse Rate 62 93 Respiratory 16 19 16 Rate Blood Pressure 161/70 179/79 (mmHg) O2 Sat by Pulse 100 100 Oximetry 06/11/19 06/11/19 08:00 09:04 Temperature Pulse Rate Respiratory 18 18 Rate Blood Pressure (mmHg) O2 Sat by Pulse Oximetry Laboratory Results - last 24 hr 06/05/19 06/11/19 06/11/19 06:44 05:08 05:08 WBC 5.6 RBC 3.72 L Hgb 10.3 L Hct 30 L MCV 82 MCH 28 MCHC 34 RDW 17 H Plt Count 213 MPV 6.5 L Sodium 133 L Potassium 4.5 Chloride 105 Carbon Dioxide 24 Anion Gap 4 BUN 17 Creatinine 0.77 Est GFR ( Amer) 117.9 Est GFR (Non-Af Amer) 97.5 BUN/Creatinine Ratio 22.1 H Glucose 95 Calcium 9.9 Phosphorus 3.7 Magnesium 1.5 L Total Bilirubin 0.90 AST 23 ALT 16 Alkaline Phosphatase 70 Lactate Dehydrogenase 177 C-Reactive Protein 22.76 H Total Protein 6.8 Albumin 3.2 Globulin 3.6 Albumin/Globulin Ratio 0.9 L PTH Related Peptide 0.5 O/E: Lungs: Clear Heart: NSR Ext: Rt BKA Abd: Soft: No Ascitis Assessment and Plan: *sCr Normal. *Hypo-Na, likely SIADH. Na acceptable on this regimen *Hyper-Ca: Ok off Ca/Vit D. *Hypo-Mg mild, 2/2 to PPIs. Off PPIs on Mg supplement. Likely renal Mg wasting is contributing too.
[2019-06-11] MEDS: Enoxaparin(*) 40 MG/0.4 ML SYR SUBCUT SCH (14:03)
[2019-06-11] MEDS: Latanoprost 0.005%* 2.5 ml BTL BOTH EYES SCH (20:57)
--- NOTE | 2019-06-12 10:06 | PN ---
Progress Note - Progress Note Date of Service: 06/12/19 SOAP: Subjective: CC: fever HPI: 78 year old man admitted with encephalopathy and fall, had one night of fever, not detected since and he hasn't noticed chills, shakes or sweats. To have LN FNA today. Objective: Vital Signs Temp 36.6 C 06/12/19 07:15 Pulse 57 06/12/19 07:15 Resp 16 06/12/19 07:15 BP 130/65 06/12/19 07:15 Pulse Ox 99 06/12/19 07:15 Intake & Output 06/11/19 06/12/19 06/12/19 18:59 06:59 18:59 Intake Total 1140 960 Output Total 200 Balance 940 960 Intake: Oral 1140 960 Output: Urine 200 Other: Estimated Void Large Date of Last Bowel 06/11/19 Movement # Bowel Movements 1 0 # Voids 2 6 Gen:awake, no distress HEENT: no thrush Heart:RRR no murmur Lungs:CTA BL Abd:+BS NTND soft Skin: no rash LN: BL axilla and inguinal 1 cm mobile nodes Microbiology 06/07/19 00:47 Aerobic Blood Culture - Final Blood Venous No Growth Day 5 Anaerobic Blood Culture - Final No Growth Day 5 06/07/19 00:47 Aerobic Blood Culture - Final Blood Venous No Growth Day 5 Anaerobic Blood Culture - Final No Growth Day 5 Assessment: 1. encephalopathy, initial mild hypercalcemia 2. Lymphadenopathy, FNA pending 3. chronic corticosteroid use 4. PAD, hx R BKA Plan: 1. FNA pending , continue to observe off of antibiotics, discussed with Dr Castillo
[2019-06-12] MEDS: Clopidogrel TAB* 75 MG PO SCH (11:01)
[2019-06-12] MEDS: Gabapentin CAP(*) 300 MG PO SCH ×3 (11:01→22:53)
[2019-06-12] MEDS: Atorvastatin* 40 MG TAB PO SCH (11:01)
[2019-06-12] MEDS: levETIRAcetam TAB* 500 MG PO SCH ×2 (11:02→22:58)
[2019-06-12] MEDS: Acetaminophen TAB* 325 MG PO PRN ×2 (11:02→18:34)
[2019-06-12] MEDS: Potassium Chlor TAB* 20 MEQ TAB.ER PO SCH ×2 (11:03→22:58)
[2019-06-12] MEDS: predniSONE TAB* 5 MG PO SCH (11:03)
[2019-06-12] MEDS: Finasteride TAB* 5 MG PO SCH (11:03)
[2019-06-12] MEDS: Vitamin THERAPEUTIC TAB PO SCH (11:03)
[2019-06-12] MEDS: Magnesium Oxide TAB* 400 MG PO SCH ×2 (11:03→22:58)
[2019-06-12] MEDS: Enoxaparin(*) 40 MG/0.4 ML SYR SUBCUT SCH (18:34)
[2019-06-12] MEDS: Latanoprost 0.005%* 2.5 ml BTL BOTH EYES SCH (23:01)
[2019-06-13] MEDS: Clopidogrel TAB* 75 MG PO SCH (09:11)
[2019-06-13] MEDS: Magnesium Oxide TAB* 400 MG PO SCH ×2 (09:11→20:50)
[2019-06-13] MEDS: levETIRAcetam TAB* 500 MG PO SCH ×2 (09:11→20:49)
[2019-06-13] MEDS: Atorvastatin* 40 MG TAB PO SCH (09:11)
[2019-06-13] MEDS: Finasteride TAB* 5 MG PO SCH (09:11)
[2019-06-13] MEDS: predniSONE TAB* 5 MG PO SCH (09:11)
[2019-06-13] MEDS: Vitamin THERAPEUTIC TAB PO SCH (09:11)
[2019-06-13] MEDS: Gabapentin CAP(*) 300 MG PO SCH ×3 (09:12→20:50)
[2019-06-13] MEDS: Potassium Chlor TAB* 20 MEQ TAB.ER PO SCH ×2 (09:12→20:51)
[2019-06-13] MEDS: Enoxaparin(*) 40 MG/0.4 ML SYR SUBCUT SCH (15:50)
[2019-06-13] MEDS: Acetaminophen TAB* 325 MG PO PRN (15:53)
[2019-06-13] MEDS: Latanoprost 0.005%* 2.5 ml BTL BOTH EYES SCH (20:48)
[2019-06-14] MEDS ORDERED: ZOSYN 3.375 GM Q8H per EXTENDED INFUSION IVPB SCH ×2 (01:00)
[2019-06-14 07:15] LABS: Albumin 3.2 g/dL (3.2-5.2); Magnesium 1.7 mg/dL (1.9-2.7); Potassium 4.7 mmol/L (3.5-5.0); Total Bilirubin 0.8 mg/dL (0.2-1.0)
[2019-06-14 07:21] LABS: Albumin/Globulin Ratio 0.9 (1-3); BUN/Creatinine Ratio 21.5 (8-20); C Reactive Protein 7.25 mg/L (<8.01); EGFR African American 94.8 (>60); EGFR Non-African American 78.4 (>60); Globulin 3.6 g/dL (2-4); Total Protein 6.8 g/dL (6.4-8.9)
[2019-06-14] MEDS: Clopidogrel TAB* 75 MG PO SCH (09:24)
[2019-06-14] MEDS: predniSONE TAB* 5 MG PO SCH (09:24)
[2019-06-14] MEDS: levETIRAcetam TAB* 500 MG PO SCH ×2 (09:25→21:06)
[2019-06-14] MEDS: Finasteride TAB* 5 MG PO SCH (09:25)
[2019-06-14] MEDS: Gabapentin CAP(*) 300 MG PO SCH ×3 (09:27→21:06)
[2019-06-14] MEDS: Atorvastatin* 40 MG TAB PO SCH (09:28)
[2019-06-14] MEDS: Vitamin THERAPEUTIC TAB PO SCH (09:28)
[2019-06-14] MEDS: Magnesium Oxide TAB* 400 MG PO SCH ×2 (09:29→21:06)
[2019-06-14] MEDS: Potassium Chlor TAB* 20 MEQ TAB.ER PO SCH ×2 (09:29→21:07)
[2019-06-14] MEDS: Enoxaparin(*) 40 MG/0.4 ML SYR SUBCUT SCH (14:23)
[2019-06-14] MEDS: Acetaminophen TAB* 325 MG PO PRN (16:56)
[2019-06-14] MEDS ORDERED: ZOSYN 3.375 GM x ONE DOSE over 30 miuntes IVPB ×2 (21:00)
[2019-06-14] MEDS: Latanoprost 0.005%* 2.5 ml BTL BOTH EYES SCH (21:04)
[2019-06-15] MEDS ORDERED: ZOSYN 3.375 GM Q8H per EXTENDED INFUSION IVPB SCH ×2 (01:00)
[2019-06-15 06:41] LABS: ABS Eosinophils 0.1 10^3/ul (0-0.6); ABS Lymphocytes 0.9 10^3/ul (1.0-4.8); ABS Monocytes 0.9 10^3/ul (0-0.8); ABS Neutrophils 2.7 10^3/ul (1.5-7.7); Eosinophil % 2.5 %; Hematocrit 30 % (42-52); Hemoglobin 10.2 g/dL (14.0-18.0); Mean Corpuscular HGB Conc 34 g/dL (31-36); Mean Corpuscular Hemoglobin 28 pg (27-31); Mean Corpuscular Volume 82 fL (80-94); Mean Platelet Volume 6.3 fL (7.4-10.4); Platelet Count 220 10^3/uL (150-450); Red Blood Count 3.62 10^6 /uL (4.18-5.48); Red Cell Distribution Width 17 % (10-15); White Blood Count 4.6 10^3/uL (3.5-10.8)
[2019-06-15 06:56] LABS: BUN/Creatinine Ratio 20.8 (8-20); Calcium 9.8 mg/dL (8.6-10.3); EGFR African American 86.2 (>60); EGFR Non-African American 71.3 (>60); Potassium 4.5 mmol/L (3.5-5.0)
--- NOTE | 2019-06-15 08:52 | PN ---
Subjective - Subjective Reason for Note: Progress Note History: Dr. May Castillo has kept me up to date about Mr John Tong's medical condition and I supplemented this by reviewing the EMR. I was called last night and told his left foot was red, acutely painful and was turning black. I was advised he required an antibacterial, so I started him on zosyn. This morning he has no pain in his left foot. He is alert and mostly oriented (stated it was Sunday and not Sunday). He is not able to give an account of himself, but he has been encephalopathic for most of his stay. He is aware of feeling weak and is interested in eating, though he has a poor appetite. ROS: CVS: no chest pain/palpitations, dyspnea Resp: No cough, sputum or wheezing Abdo: Appetite is down, but he has no nausea, vomiting. No change in his BM : No dyspuria or frequency. 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) L93.2 Essential hypertension (Chronic) I10 Lumbar radiculopathy (Chronic) M54.16 Osteoporosis (Chronic) M81.0 Psoriatic arthritis (Chronic) L40.50 Secondary adrenal insufficiency (Chronic) E27.49 Seizure disorder (Chronic) G40.909 Current Medications: Current Medications Acetaminophen (Tylenol Tab*) 650 mg PO Q6H PRN PRN Reason: MILD PAIN or TEMP > 100.4 Last Admin: 06/14/19 16:56 Dose: 650 mg Albuterol (Ventolin Hfa Inhaler*) 2 puff INH Q4H PRN PRN Reason: DYSPNEA Atorvastatin Calcium (Lipitor*) 40 mg PO DAILY [facility] Last Admin: 06/14/19 09:28 Dose: 40 mg Clopidogrel Bisulfate (Plavix Tab*) 75 mg PO DAILY [facility] Last Admin: 06/14/19 09:24 Dose: 75 mg Enoxaparin Sodium (Lovenox(*)) 40 mg SUBCUT Q24H [facility] Last Admin: 06/14/19 14:23 Dose: 40 mg Finasteride (Proscar Tab*) 5 mg PO DAILY [facility] Last Admin: 06/14/19 09:25 Dose: 5 mg Gabapentin (Neurontin Cap(*)) 600 mg PO TID [facility] Last Admin: 06/14/19 21:06 Dose: 600 mg Piperacillin Sod/Tazobactam (Sod 3.375 gm/ Sodium Chloride) 100 mls @ 25 mls/ hr IVPB Q8H [facility] Last Admin: 06/15/19 01:02 Dose: 25 mls/hr Latanoprost (Xalatan 0.005%*) 1 drop BOTH EYES BEDTIME [facility]; Protocol Last Admin: 06/14/19 21:04 Dose: 1 drop Levetiracetam (Keppra Tab*) 500 mg PO BID [facility] Last Admin: 06/14/19 21:06 Dose: 500 mg Magnesium Oxide (Magox 400 Tab*) 400 mg PO BID [facility] Last Admin: 06/14/19 21:06 Dose: 400 mg Multivitamins (Theragran Tab*) 1 tab PO DAILY [facility] Last Admin: 06/14/19 09:28 Dose: 1 tab Ondansetron HCl (Zofran Inj*) 4 mg IV Q6H PRN PRN Reason: NAUSEA Potassium Chloride (Klor Con Er Tab*) 40 meq PO BID [facility] Last Admin: 06/14/19 21:07 Dose: 40 meq Prednisone (Deltasone Tab*) 5 mg PO DAILY [facility] Last Admin: 06/14/19 09:24 Dose: 5 mg Home Medications: Home Medications Medication Instructions Recorded Confirmed Type Finasteride TAB* [Proscar TAB*] 5 mg PO DAILY 04/04/16 06/02/19 History Travoprost Z 0.004% OPHTH (NF) 1 drop BOTH EYES BEDTIME 04/04/16 06/02/19 History [Travatan Z 0.004% OPTH (NF)] Calcium Carbonate/Vitamin D3 1 tab PO DAILY 03/23/17 06/02/19 History [Super Calcium 600-Vit D3 400] Acetaminophen TAB* [Tylenol TAB*] 650 mg PO Q6H PRN #30 tab 05/19/18 06/02/19 Rx Albuterol HFA INHALER* [Ventolin 2 puff PO Q4H PRN 08/15/18 06/02/19 History HFA Inhaler*] oxyCODONE/Acetamin 5/325 MG* 1 - 2 tab PO Q6HR PRN #40 tab MDD 8 08/21/18 Rx [Percocet 5/325 TAB*] predniSONE TAB* [Deltasone 10 MG 10 mg PO DAILY tab 10/01/18 06/02/19 Rx TAB*] Demeclocycline TAB* [Declomycin 150 mg PO BID 03/25/19 06/02/19 History TAB*] Gabapentin 600 mg PO TID 03/25/19 06/02/19 History Multivitamin [Multivitamins] 1 cap PO DAILY 03/25/19 06/02/19 History Atorvastatin Calcium [Lipitor] 1 tab PO DAILY 06/02/19 06/02/19 History Clopidogrel TAB* [Plavix TAB*] 1 tab PO DAILY 06/02/19 06/02/19 History Fludrocortisone Acetate TAB* 1 tab PO DAILY 06/02/19 06/02/19 History [Florinef TAB*] Magnesium Oxide [Magnesium] 1 tab PO BID 06/02/19 06/02/19 History Omeprazole 1 tab PO DAILY 06/02/19 06/02/19 History Potassium Chlor TAB* [Klor Con ER 10 meq PO DAILY 06/02/19 06/02/19 History TAB 10 MEQ*] Sildenafil (PULMONARY)(NF) 0.5 tab PO DAILY 06/02/19 06/02/19 History [Revatio (NF)] Sodium Chloride TAB* 2 tab PO BID 06/02/19 06/02/19 History levETIRAcetam TAB* [Keppra TAB*] 500 mg PO BID 06/02/19 06/02/19 History Allergies: Allergies Allergy/AdvReac Type Severity Reaction Status Date / Time alendronate sodium Allergy Unknown Verified 06/02/19 08:14 Reaction Details azathioprine Allergy Unknown Verified 06/02/19 08:14 Reaction Details benazepril [From Lotensin] Allergy Unknown Verified 06/02/19 08:14 Reaction Details celecoxib Allergy Hives Verified 06/02/19 08:14 cilostazol Allergy Unknown Verified 06/02/19 08:14 Reaction Details clindamycin Allergy Unknown Verified 06/02/19 08:14 Reaction Details glucosamine Allergy Unknown Verified 06/02/19 08:14 Reaction Details hydrochlorothiazide Allergy Unknown Verified 06/02/19 08:14 [From Dyazide] Reaction Details hydroxychloroquine Allergy See Comment Verified 06/02/19 08:14 methotrexate Allergy See Comment Verified 06/02/19 08:14 morphine Allergy See Comment Verified 06/02/19 08:14 Sulfa (Sulfonamide Allergy See Comment Verified 06/02/19 08:15 Antibiotics) triamterene [From Dyazide] Allergy Unknown Verified 06/02/19 08:14 Reaction Details Objective - Vital Signs Vital Signs: Vital Signs 06/14/19 06/14/19 06/14/19 09:27 11:15 12:27 Temperature 97.7 F Pulse Rate 64 Respiratory 18 18 18 Rate Blood Pressure 115/67 (mmHg) O2 Sat by Pulse 99 Oximetry 06/14/19 06/14/19 06/14/19 14:23 15:15 19:15 Temperature 97.7 F 98.1 F Pulse Rate 65 66 Respiratory 18 20 16 Rate Blood Pressure 130/61 119/57 (mmHg) O2 Sat by Pulse 100 99 Oximetry 06/14/19 06/14/19 06/14/19 21:06 22:12 22:55 Temperature Pulse Rate Respiratory 16 16 16 Rate Blood Pressure (mmHg) O2 Sat by Pulse Oximetry 06/14/19 06/15/19 06/15/19 23:49 02:58 07:55 Temperature 97.8 F 98.5 F Pulse Rate 54 66 Respiratory 16 16 18 Rate Blood Pressure 123/56 115/62 (mmHg) O2 Sat by Pulse 98 100 Oximetry - Intake and Output Intake and Output: Intake & Output 06/12/19 06/13/19 06/14/19 06/15/19 11:59 11:59 11:59 11:59 Intake Total 2100 480 450 393 Output Total 200 150 101 Balance 1900 330 349 393 Intake: IV Fluids 43 NS (0.9%) 43 IVPB 110 ABX - ZOSYN 110 Oral 2100 480 450 240 Output: Urine 200 150 101 Other: Estimated Void Large Small Large Medium Date of Last Bowel 06/11/19 06/12/19 Movement # Bowel Movements 0 1 1 0 Estimated Stool Amount Medium Small Small # Voids 6 1 1 1 ADLs: Meal Record Start: 06/02/19 16: 17 Freq: DAILY@0900,1400,1800 Status: Active Protocol: Created 06/02/19 16:17 System (Rec: 06/02/19 16:17 System MED-C16) Document 06/02/19 18:00 [id number] (Rec: 06/02/19 18:39 [id number] MED-C09) Document 06/03/19 09:00 [id number] (Rec: 06/03/19 09:33 [id number] MED-C13) Document 06/03/19 13:16 [id number] (Rec: 06/03/19 13:16 [id number] MED-C09) Document 06/03/19 18:00 [id number] (Rec: 06/03/19 20:53 [id number] MED-C05) Document 06/04/19 09:00 [id number] (Rec: 06/04/19 09:21 [id number] MED-M19) Document 06/04/19 13:26 [id number] (Rec: 06/04/19 13:29 [id number] MED-C05) Document 06/04/19 18:00 JQZ5214 (Rec: 06/04/19 20:56 [id number] MED-C05) Document 06/05/19 09:00 [id number] (Rec: 06/05/19 09:26 [id number] MED-C11) Document 06/05/19 14:00 [id number] (Rec: 06/05/19 15:40 [id number] MED-M28) Document 06/05/19 18:00 [id number] (Rec: 06/06/19 00:08 GTB0564 MED-M18) Document 06/06/19 09:00 VYH6335 (Rec: 06/06/19 11:21 [id number] MED-C11) Document 06/06/19 14:00 [id number] (Rec: 06/06/19 14:14 [id number] MED-C11) Document 06/07/19 09:00 [id number] (Rec: 06/07/19 15:14 [id number] MED-C11) Document 06/07/19 14:00 [id number] (Rec: 06/07/19 15:14 [id number] MED-C11) Document 06/07/19 18:00 [id number] (Rec: 06/07/19 18:04 BBH2020 MED-C11) Document 06/08/19 09:00 [id number] (Rec: 06/08/19 14:22 [id number] MED-C09) Document 06/08/19 14:00 [id number] (Rec: 06/08/19 14:23 KAS3158 MED-C09) Document 06/08/19 18:00 [id number] (Rec: 06/08/19 19:21 [id number] MEDL-C02) Document 06/09/19 09:00 PEM7992 (Rec: 06/09/19 09:34 [id number] MED-C11) Document 06/09/19 18:00 UUL3500 (Rec: 06/09/19 20:21 [id number] MED-C11) Document 06/10/19 09:00 PNI1194 (Rec: 06/10/19 13:39 [id number] MED-C05) Document 06/10/19 13:39 DAW1102 (Rec: 06/10/19 13:40 [id number] MED-C05) Document 06/10/19 18:00 YFL1087 (Rec: 06/10/19 18:45 IKD6287 MED-C11) Document 06/11/19 14:00 KGG5075 (Rec: 06/11/19 14:02 NWO0513 MED-C11) Document 06/11/19 18:00 OZM6687 (Rec: 06/11/19 18:37 OOA9518 MED-C11) Document 06/12/19 09:00 BOD0938 (Rec: 06/12/19 12:46 [id number] MED-C11) Document 06/12/19 14:00 GXD2158 (Rec: 06/12/19 14:12 [id number] MED-C11) Document 06/12/19 18:00 VTK3037 (Rec: 06/12/19 18:16 [id number] MED-C11) Document 06/13/19 09:00 OZE5576 (Rec: 06/13/19 10:51 UWQ6536 MED-C11) Document 06/13/19 14:00 KNJ5745 (Rec: 06/13/19 16:20 [id number] MED-C04) Document 06/14/19 09:00 PUK3966 (Rec: 06/14/19 12:16 [id number] MED-C11) Document 06/14/19 14:00 AIU5514 (Rec: 06/14/19 14:24 ICS1955 MED-C11) Document 06/14/19 18:00 RLY3977 (Rec: 06/14/19 18:28 [id number] MED-C11) Intake and Output Start: 06/02/19 08: 13 Freq: Status: Complete Protocol: Created 06/02/19 08:13 System (Rec: 06/02/19 08:13 System ED-C24) Intake and Output Start: 06/02/19 16: 17 Freq: DAILY@0600,1400,2200 Status: Active Protocol: Created 06/02/19 16:17 System (Rec: 06/02/19 16:17 System MED-C16) Document 06/02/19 22:00 [id number] (Rec: 06/03/19 00:54 [id number] MED-C09) Document 06/03/19 05:35 [id number] (Rec: 06/03/19 05:36 PRY5602 MED-C09) Document 06/03/19 11:34 ODU6607 (Rec: 06/03/19 11:34 [id number] MED-C13) Document 06/03/19 14:00 QJM6262 (Rec: 06/03/19 14:05 WYR0457 MED-C13) Document 06/03/19 22:00 [id number] (Rec: 06/03/19 22:41 [id number] MED-C05) Document 06/04/19 05:23 SAQ0103 (Rec: 06/04/19 05:23 [id number] MED-C05) Document 06/04/19 13:26 KBC1699 (Rec: 06/04/19 13:29 PYG6626 MED-C05) Document 06/04/19 21:23 IUU0480 (Rec: 06/04/19 21:27 [id number] MED-C13) Document 06/05/19 02:41 KVL5980 (Rec: 06/05/19 02:41 DAM5901 MED-C13) Document 06/05/19 05:44 FCA8519 (Rec: 06/05/19 05:44 SMX9230 MED-C13) Document 06/05/19 12:14 GPM1123 (Rec: 06/05/19 12:14 PPB1029 MED-C16) Document 06/05/19 14:00 TWH4271 (Rec: 06/05/19 14:48 NFM1178 MED-C11) Document 06/05/19 22:00 [id number] (Rec: 06/06/19 00:08 [id number] MED-M18) Document 06/06/19 06:00 EDN1394 (Rec: 06/06/19 06:31 EFH6389 MED-C11) Document 06/06/19 14:00 [id number] (Rec: 06/06/19 14:15 [id number] MED-C11) Document 06/06/19 17:05 [id number] (Rec: 06/06/19 17:05 GPS3689 MED-C04) Document 06/07/19 05:06 XSF4213 (Rec: 06/07/19 05:08 MYR5433 MED-C12) Document 06/07/19 14:00 KWJ2751 (Rec: 06/07/19 18:05 KIC0703 MED-C11) Document 06/07/19 18:05 HTY2144 (Rec: 06/07/19 18:05 JIV5596 MED-C11) Document 06/07/19 22:00 ELA6489 (Rec: 06/07/19 22:09 FHM7693 MED-C07) Document 06/08/19 05:47 BXE9326 (Rec: 06/08/19 05:48 KEH6883 MED-C07) Document 06/08/19 14:00 CAE9402 (Rec: 06/08/19 14:30 JXN9602 MED-C09) Document 06/08/19 22:00 [id number] (Rec: 06/08/19 22:02 SUS7000 MED-C09) Document 06/09/19 04:46 WCC9568 (Rec: 06/09/19 04:47 CGA5502 MED-C07) Document 06/09/19 13:22 UXH4037 (Rec: 06/09/19 13:22 [id number] MED-C09) Document 06/09/19 22:00 VYG6832 (Rec: 06/09/19 23:59 TEG0520 MED-C04) Document 06/10/19 05:53 VWG7503 (Rec: 06/10/19 05:55 LYG5293 MED-C04) Document 06/10/19 13:39 VQA7271 (Rec: 06/10/19 13:40 [id number] MED-C05) Document 06/10/19 22:00 JHT6145 (Rec: 06/10/19 22:20 WXE0769 MED-C09) Document 06/11/19 04:03 OUM5069 (Rec: 06/11/19 04:04 OVF3752 MED-C11) Document 06/11/19 14:00 [id number] (Rec: 06/11/19 14:08 QXH9160 MED-C11) Document 06/11/19 22:00 FED9359 (Rec: 06/11/19 22:14 [id number] MED-C11) Document 06/12/19 05:01 [id number] (Rec: 06/12/19 05:01 VDQ3796 MED-C11) Document 06/12/19 14:00 ITA6726 (Rec: 06/12/19 14:13 IZM2097 MED-C11) Document 06/12/19 21:55 COI1096 (Rec: 06/12/19 21:55 MFK4189 MED-C09) Document 06/13/19 06:00 WMA1318 (Rec: 06/13/19 06:33 UBR1471 MED-C09) Document 06/13/19 14:00 NIT2662 (Rec: 06/13/19 16:20 RFN2817 MED-C04) Document 06/14/19 06:00 NGG4583 (Rec: 06/14/19 06:08 MMH2302 MED-C11) Document 06/14/19 13:56 [id number] (Rec: 06/14/19 13:57 [id number] MED-C11) Document 06/14/19 22:00 GTF2231 (Rec: 06/14/19 22:19 [id number] MED-C09) Document 06/15/19 05:33 [id number] (Rec: 06/15/19 05:34 [id number] MED-C13) - Physical Exam General Physical Exam Comment: Frail. Left foot - he has a black eschar on tip of 3rd toe. Minor erythema. See clinical photograph in Results General: No Cyanosis, No Anemia, No Jaundice, No Clubbing Skin: Normal: Rash Lungs and Chest: Yes: Chest Expansion Full, Chest Expansion Symetrica, Percussion Note Resonant, Vessicular Breath Sounds. No: Crackles, Wheezes Heart Rate and Rhythm: Regular JVP: Not Elevated Additional Cardiovascular: Yes: Heart Murmur - 2/6 systolic murmur aortic area, Absent Pedal Pulse. No: Carotid Bruits, Pedal Edema Abdominal Exam: Yes: Soft, Bowel Sounds Present. No: Distention, Rigidity, Abdominal Mass, Hepatomegaly, Abdominal Tenderness, Guarding, Rebound Tenderness - Extremities Cranial Nerves II-XII Intact: Yes Limbs: Normal Tone - has tremor left greater than right arm, Normal Coordination , Abnormal Power - Generalized weakness - Neuro Orientation: Person, Place - Time - Jun 2019, but Sunday, not Sunday Psychiatric: Normal Speech: Normal Results - Results Lab Results: Laboratory Results - last 24 hr 06/14/19 06/14/19 06/14/19 11:14 11:14 11:14 WBC RBC Hgb Hct MCV MCH MCHC RDW Plt Count MPV Neut % (Auto) Lymph % (Auto) [place] % (Auto) Eos % (Auto) Baso % (Auto) Absolute Neuts (auto) Absolute Lymphs (auto) Absolute Monos (auto) Absolute Eos (auto) Absolute Basos (auto) Absolute Nucleated RBC Nucleated RBC % ESR 89 H Sodium Potassium Chloride Carbon Dioxide Anion Gap BUN Creatinine Est GFR ( Amer) Est GFR (Non-Af Amer) BUN/Creatinine Ratio Glucose Calcium Ammonia 29 C-Reactive Protein Prealbumin Vitamin B12 540 06/14/19 06/15/19 06/15/19 11:14 05:14 05:14 WBC 4.6 RBC 3.62 L Hgb 10.2 L Hct 30 L MCV 82 MCH 28 MCHC 34 RDW 17 H Plt Count 220 MPV 6.3 L Neut % (Auto) 59.1 Lymph % (Auto) 19.0 [place] % (Auto) 18.5 Eos % (Auto) 2.5 Baso % (Auto) 0.9 Absolute Neuts (auto) 2.7 Absolute Lymphs (auto) 0.9 L Absolute Monos (auto) 0.9 H Absolute Eos (auto) 0.1 Absolute Basos (auto) 0.0 Absolute Nucleated RBC 0.0 Nucleated RBC % 0.0 ESR Sodium Potassium Chloride Carbon Dioxide Anion Gap BUN Creatinine Est GFR ( Amer) Est GFR (Non-Af Amer) BUN/Creatinine Ratio Glucose Calcium Ammonia C-Reactive Protein 6.25 Prealbumin 19 Vitamin B12 06/15/19 05:14 WBC RBC Hgb Hct MCV MCH MCHC RDW Plt Count MPV Neut % (Auto) Lymph % (Auto) [place] % (Auto) Eos % (Auto) Baso % (Auto) Absolute Neuts (auto) Absolute Lymphs (auto) Absolute Monos (auto) Absolute Eos (auto) Absolute Basos (auto) Absolute Nucleated RBC Nucleated RBC % ESR Sodium 133 L Potassium 4.5 Chloride 108 Carbon Dioxide 21 L Anion Gap 4 BUN 21 Creatinine 1.01 Est GFR ( Amer) 86.2 Est GFR (Non-Af Amer) 71.3 BUN/Creatinine Ratio 20.8 H Glucose 93 Calcium 9.8 Ammonia C-Reactive Protein Prealbumin Vitamin B12 Other Results/Reports: Assessment - Problem List Assessment: Patient Problems Adenopathy (Acute) Altered mental state (Acute) Frailty (Acute) Hypercalcemia (Acute) Hypomagnesemia (Acute) Ischemic pain of right foot (Acute) Malnutrition (Acute) Peripheral arterial disease (Acute) 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 Today, aside from minor disorientation, he is fully conversant and aware of his lack of insight into his hospital stay. He knows he is weak and needs to get stronger. I don't think we need a neurological consultation. Adenopathy (Acute) We are awaiting the results of a FNA of his axillary lymph node Frailty (Acute) Malnutrition (Acute) This is exacerbated by his prolonged hospital stay with poor dietary intake, and bed rest. He knows he needs to strengthen himself by eating more. He also knows that as weak as he is, his will not be able to look after him at home. Hypercalcemia (Acute) Hypomagnesemia (Acute) He has hypoalbuminemia and hence his free calcium remains high. His magnesium level wasn't measured today. The underlying cause remains unknown. Maybe the US axillary lymph node will be helpful. I will check an FAITH level. I think we should consider treating him with a bisphosphonate empirically to stop this being an additional cause of his weakness and altered mental state. Dr. May Castillo has ruled out the usual causes of hypercalcemia systematically and I can think of no additional testing , aside from vitamin A levels. Ischemic pain of right foot (Acute) Today there are no signs of acute infection or acute ischemia. He had some pain yesterday. I have stopped the antibacterials I was encouraged to start yesterday. 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 She is worried about his weight - maybe too weak for rehabilitation. I will start the process of considering SNFs.
[2019-06-15] MEDS: Gabapentin CAP(*) 300 MG PO SCH ×3 (09:00→20:52)
[2019-06-15] MEDS: Clopidogrel TAB* 75 MG PO SCH (09:00)
[2019-06-15] MEDS: levETIRAcetam TAB* 500 MG PO SCH ×2 (09:00→20:52)
[2019-06-15] MEDS: Finasteride TAB* 5 MG PO SCH (09:00)
[2019-06-15] MEDS: Vitamin THERAPEUTIC TAB PO SCH (09:00)
[2019-06-15] MEDS: Atorvastatin* 40 MG TAB PO SCH (09:00)
[2019-06-15] MEDS: predniSONE TAB* 5 MG PO SCH (09:01)
[2019-06-15] MEDS: Potassium Chlor TAB* 20 MEQ TAB.ER PO SCH ×2 (09:01→20:51)
[2019-06-15] MEDS: Magnesium Oxide TAB* 400 MG PO SCH ×2 (09:01→20:52)
[2019-06-15] MEDS: Enoxaparin(*) 40 MG/0.4 ML SYR SUBCUT SCH (14:02)
[2019-06-15] MEDS: Acetaminophen TAB* 325 MG PO PRN ×2 (16:57→23:47)
[2019-06-15] MEDS: Latanoprost 0.005%* 2.5 ml BTL BOTH EYES SCH (20:52)
[2019-06-16 05:07] LABS: BUN/Creatinine Ratio 26.3 (8-20); Calcium 9.4 mg/dL (8.6-10.3); EGFR African American 112.8 (>60); EGFR Non-African American 93.3 (>60); Magnesium 1.6 mg/dL (1.9-2.7); Potassium 4.4 mmol/L (3.5-5.0)
--- NOTE | 2019-06-16 09:23 | PN ---
Subjective - Subjective Reason for Note: Progress Note History: Today he is alert, orientated and conversational. He has no focal symptoms. 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) L93.2 Essential hypertension (Chronic) I10 Lumbar radiculopathy (Chronic) M54.16 Osteoporosis (Chronic) M81.0 Psoriatic arthritis (Chronic) L40.50 Secondary adrenal insufficiency (Chronic) E27.49 Seizure disorder (Chronic) G40.909 Current Medications: Current Medications Acetaminophen (Tylenol Tab*) 650 mg PO Q6H PRN PRN Reason: MILD PAIN or TEMP > 100.4 Last Admin: 06/15/19 23:47 Dose: 650 mg Albuterol (Ventolin Hfa Inhaler*) 2 puff INH Q4H PRN PRN Reason: DYSPNEA Atorvastatin Calcium (Lipitor*) 40 mg PO DAILY [facility] Last Admin: 06/15/19 09:00 Dose: 40 mg Clopidogrel Bisulfate (Plavix Tab*) 75 mg PO DAILY [facility] Last Admin: 06/15/19 09:00 Dose: 75 mg Enoxaparin Sodium (Lovenox(*)) 40 mg SUBCUT Q24H [facility] Last Admin: 06/15/19 14:02 Dose: 40 mg Finasteride (Proscar Tab*) 5 mg PO DAILY [facility] Last Admin: 06/15/19 09:00 Dose: 5 mg Gabapentin (Neurontin Cap(*)) 600 mg PO TID [facility] Last Admin: 06/15/19 20:52 Dose: 600 mg Latanoprost (Xalatan 0.005%*) 1 drop BOTH EYES BEDTIME [facility]; Protocol Last Admin: 06/15/19 20:52 Dose: 1 drop Levetiracetam (Keppra Tab*) 500 mg PO BID [facility] Last Admin: 06/15/19 20:52 Dose: 500 mg Magnesium Oxide (Magox 400 Tab*) 400 mg PO BID [facility] Last Admin: 06/15/19 20:52 Dose: 400 mg Multivitamins (Theragran Tab*) 1 tab PO DAILY [facility] Last Admin: 06/15/19 09:00 Dose: 1 tab Ondansetron HCl (Zofran Inj*) 4 mg IV Q6H PRN PRN Reason: NAUSEA Potassium Chloride (Klor Con Er Tab*) 40 meq PO BID [facility] Last Admin: 06/15/19 20:51 Dose: 40 meq Prednisone (Deltasone Tab*) 5 mg PO DAILY [facility] Last Admin: 06/15/19 09:01 Dose: 5 mg Home Medications: Home Medications Medication Instructions Recorded Confirmed Type Finasteride TAB* [Proscar TAB*] 5 mg PO DAILY 04/04/16 06/02/19 History Travoprost Z 0.004% OPHTH (NF) 1 drop BOTH EYES BEDTIME 04/04/16 06/02/19 History [Travatan Z 0.004% OPTH (NF)] Calcium Carbonate/Vitamin D3 1 tab PO DAILY 03/23/17 06/02/19 History [Super Calcium 600-Vit D3 400] Acetaminophen TAB* [Tylenol TAB*] 650 mg PO Q6H PRN #30 tab 05/19/18 06/02/19 Rx Albuterol HFA INHALER* [Ventolin 2 puff PO Q4H PRN 08/15/18 06/02/19 History HFA Inhaler*] oxyCODONE/Acetamin 5/325 MG* 1 - 2 tab PO Q6HR PRN #40 tab MDD 8 08/21/18 Rx [Percocet 5/325 TAB*] predniSONE TAB* [Deltasone 10 MG 10 mg PO DAILY tab 10/01/18 06/02/19 Rx TAB*] Demeclocycline TAB* [Declomycin 150 mg PO BID 03/25/19 06/02/19 History TAB*] Gabapentin 600 mg PO TID 03/25/19 06/02/19 History Multivitamin [Multivitamins] 1 cap PO DAILY 03/25/19 06/02/19 History Atorvastatin Calcium [Lipitor] 1 tab PO DAILY 06/02/19 06/02/19 History Clopidogrel TAB* [Plavix TAB*] 1 tab PO DAILY 06/02/19 06/02/19 History Fludrocortisone Acetate TAB* 1 tab PO DAILY 06/02/19 06/02/19 History [Florinef TAB*] Magnesium Oxide [Magnesium] 1 tab PO BID 06/02/19 06/02/19 History Omeprazole 1 tab PO DAILY 06/02/19 06/02/19 History Potassium Chlor TAB* [Klor Con ER 10 meq PO DAILY 06/02/19 06/02/19 History TAB 10 MEQ*] Sildenafil (PULMONARY)(NF) 0.5 tab PO DAILY 06/02/19 06/02/19 History [Revatio (NF)] Sodium Chloride TAB* 2 tab PO BID 06/02/19 06/02/19 History levETIRAcetam TAB* [Keppra TAB*] 500 mg PO BID 06/02/19 06/02/19 History Allergies: Allergies Allergy/AdvReac Type Severity Reaction Status Date / Time alendronate sodium Allergy Unknown Verified 06/02/19 08:14 Reaction Details azathioprine Allergy Unknown Verified 06/02/19 08:14 Reaction Details benazepril [From Lotensin] Allergy Unknown Verified 06/02/19 08:14 Reaction Details celecoxib Allergy Hives Verified 06/02/19 08:14 cilostazol Allergy Unknown Verified 06/02/19 08:14 Reaction Details clindamycin Allergy Unknown Verified 06/02/19 08:14 Reaction Details glucosamine Allergy Unknown Verified 06/02/19 08:14 Reaction Details hydrochlorothiazide Allergy Unknown Verified 06/02/19 08:14 [From Dyazide] Reaction Details hydroxychloroquine Allergy See Comment Verified 06/02/19 08:14 methotrexate Allergy See Comment Verified 06/02/19 08:14 morphine Allergy See Comment Verified 06/02/19 08:14 Sulfa (Sulfonamide Allergy See Comment Verified 06/02/19 08:15 Antibiotics) triamterene [From Dyazide] Allergy Unknown Verified 06/02/19 08:14 Reaction Details Objective - Vital Signs Vital Signs: Vital Signs 06/15/19 06/15/19 06/15/19 11:15 13:35 15:15 Temperature 97.8 F 98.6 F Pulse Rate 63 63 Respiratory 23 18 19 Rate Blood Pressure 97/50 115/56 (mmHg) O2 Sat by Pulse 100 100 Oximetry 06/15/19 06/15/19 06/15/19 16:44 19:43 20:00 Temperature 98.8 F Pulse Rate 55 Respiratory 18 16 16 Rate Blood Pressure 138/55 (mmHg) O2 Sat by Pulse 99 Oximetry 06/15/19 06/15/19 06/16/19 20:52 23:07 02:35 Temperature 98.2 F 97.1 F Pulse Rate 55 51 Respiratory 16 16 16 Rate Blood Pressure 121/60 125/56 (mmHg) O2 Sat by Pulse 99 98 Oximetry 06/16/19 06/16/19 07:20 08:00 Temperature 98.5 F Pulse Rate 76 Respiratory 16 16 Rate Blood Pressure 92/49 (mmHg) O2 Sat by Pulse 99 Oximetry - Intake and Output Intake and Output: Intake & Output 06/13/19 06/14/19 06/15/19 06/16/19 11:59 11:59 11:59 11:59 Intake Total 480 463 690 3132 Output Total 150 101 970 Balance 330 349 633 350 Intake: IV Fluids 43 NS (0.9%) 43 IVPB 110 ABX - ZOSYN 110 Oral 480 426 554 8482 Output: Urine 150 101 970 Other: Estimated Void Small Large Medium Medium Date of Last Bowel 06/12/19 Movement # Bowel Movements 1 1 0 0 Estimated Stool Amount Medium Small Small # Voids 1 1 1 1 ADLs: Meal Record Start: 06/02/19 16: 17 Freq: DAILY@0900,1400,1800 Status: Active Protocol: Created 06/02/19 16:17 System (Rec: 06/02/19 16:17 System MED-C16) Document 06/02/19 18:00 [id number] (Rec: 06/02/19 18:39 [id number] MED-C09) Document 06/03/19 09:00 [id number] (Rec: 06/03/19 09:33 [id number] MED-C13) Document 06/03/19 13:16 MYW7074 (Rec: 06/03/19 13:16 ZJZ3984 MED-C09) Document 06/03/19 18:00 PYR2312 (Rec: 06/03/19 20:53 CKB2195 MED-C05) Document 06/04/19 09:00 XQQ5764 (Rec: 06/04/19 09:21 NHG8592 MED-M19) Document 06/04/19 13:26 NQX8693 (Rec: 06/04/19 13:29 JEO9782 MED-C05) Document 06/04/19 18:00 TJV0021 (Rec: 06/04/19 20:56 RNA4066 MED-C05) Document 06/05/19 09:00 QJZ4253 (Rec: 06/05/19 09:26 JNU5040 MED-C11) Document 06/05/19 14:00 ODO8023 (Rec: 06/05/19 15:40 WKH8321 MED-M28) Document 06/05/19 18:00 GOI5124 (Rec: 06/06/19 00:08 SJP3666 MED-M18) Document 06/06/19 09:00 EBU0627 (Rec: 06/06/19 11:21 LHS8179 MED-C11) Document 06/06/19 14:00 WXP9826 (Rec: 06/06/19 14:14 RTF5943 MED-C11) Document 06/07/19 09:00 KLU2119 (Rec: 06/07/19 15:14 [id number] MED-C11) Document 06/07/19 14:00 ZHF9942 (Rec: 06/07/19 15:14 JIV4424 MED-C11) Document 06/07/19 18:00 PFH4791 (Rec: 06/07/19 18:04 ZSB3182 MED-C11) Document 06/08/19 09:00 LBU4841 (Rec: 06/08/19 14:22 IMT5158 MED-C09) Document 06/08/19 14:00 JHP8948 (Rec: 06/08/19 14:23 DLF3555 MED-C09) Document 06/08/19 18:00 EZF4466 (Rec: 06/08/19 19:21 KPS0002 MEDL-C02) Document 06/09/19 09:00 SRJ7270 (Rec: 06/09/19 09:34 GGW9162 MED-C11) Document 06/09/19 18:00 XNO2595 (Rec: 06/09/19 20:21 EHH5158 MED-C11) Document 06/10/19 09:00 ARG8481 (Rec: 06/10/19 13:39 IHK5793 MED-C05) Document 06/10/19 13:39 UXW9985 (Rec: 06/10/19 13:40 BED4995 MED-C05) Document 06/10/19 18:00 VRG3289 (Rec: 06/10/19 18:45 DJW9529 MED-C11) Document 06/11/19 14:00 TMJ5350 (Rec: 06/11/19 14:02 RKE4827 MED-C11) Document 06/11/19 18:00 UYY8599 (Rec: 06/11/19 18:37 NIK7855 MED-C11) Document 06/12/19 09:00 GIS0193 (Rec: 06/12/19 12:46 LEG6242 MED-C11) Document 06/12/19 14:00 ELC2796 (Rec: 06/12/19 14:12 PZQ4626 MED-C11) Document 06/12/19 18:00 NUC1185 (Rec: 06/12/19 18:16 XTU3235 MED-C11) Document 06/13/19 09:00 OMD8471 (Rec: 06/13/19 10:51 VQZ2489 MED-C11) Document 06/13/19 14:00 YYL9445 (Rec: 06/13/19 16:20 OLJ8657 MED-C04) Document 06/14/19 09:00 OXH9933 (Rec: 06/14/19 12:16 VDX6867 MED-C11) Document 06/14/19 14:00 GNV1670 (Rec: 06/14/19 14:24 GLQ6858 MED-C11) Document 06/14/19 18:00 HPE0493 (Rec: 06/14/19 18:28 BYV5862 MED-C11) Document 06/15/19 09:00 TCC6688 (Rec: 06/15/19 09:48 MBP3806 MED-C11) Document 06/15/19 14:00 KHO3859 (Rec: 06/15/19 14:46 DBI5036 MED-C11) Document 06/15/19 18:00 AUQ2985 (Rec: 06/15/19 18:26 QAO3663 MED-C11) Intake and Output Start: 06/02/19 08: 13 Freq: Status: Complete Protocol: Created 06/02/19 08:13 System (Rec: 06/02/19 08:13 System ED-C24) Intake and Output Start: 06/02/19 16: 17 Freq: DAILY@0600,1400,2200 Status: Active Protocol: Created 06/02/19 16:17 System (Rec: 06/02/19 16:17 System MED-C16) Document 06/02/19 22:00 KPL8559 (Rec: 06/03/19 00:54 MZZ7987 MED-C09) Document 06/03/19 05:35 EJO3992 (Rec: 06/03/19 05:36 DWA0722 MED-C09) Document 06/03/19 11:34 GIO2905 (Rec: 06/03/19 11:34 GAZ6978 MED-C13) Document 06/03/19 14:00 YGG6057 (Rec: 06/03/19 14:05 ZAH6633 MED-C13) Document 06/03/19 22:00 SEZ8176 (Rec: 06/03/19 22:41 CWI1981 MED-C05) Document 06/04/19 05:23 NDO2743 (Rec: 06/04/19 05:23 ALM7925 MED-C05) Document 06/04/19 13:26 SQD8811 (Rec: 06/04/19 13:29 NUT0851 MED-C05) Document 06/04/19 21:23 BMR2491 (Rec: 06/04/19 21:27 IUC1138 MED-C13) Document 06/05/19 02:41 VKY6044 (Rec: 06/05/19 02:41 YVY9898 MED-C13) Document 06/05/19 05:44 XYK9680 (Rec: 06/05/19 05:44 LMW5679 MED-C13) Document 06/05/19 12:14 JEB8829 (Rec: 06/05/19 12:14 GPF2071 MED-C16) Document 06/05/19 14:00 BIC4369 (Rec: 06/05/19 14:48 ADC3964 MED-C11) Document 06/05/19 22:00 JHV8825 (Rec: 06/06/19 00:08 AFM1960 MED-M18) Document 06/06/19 06:00 XSP8620 (Rec: 06/06/19 06:31 WMU3804 MED-C11) Document 06/06/19 14:00 NQM1191 (Rec: 06/06/19 14:15 WXC9320 MED-C11) Document 06/06/19 17:05 CEZ7285 (Rec: 06/06/19 17:05 VVQ0882 MED-C04) Document 06/07/19 05:06 ZEZ4671 (Rec: 06/07/19 05:08 QXO3924 MED-C12) Document 06/07/19 14:00 NJP8578 (Rec: 06/07/19 18:05 THH8205 MED-C11) Document 06/07/19 18:05 ABK3910 (Rec: 06/07/19 18:05 WXR1139 MED-C11) Document 06/07/19 22:00 NFR3926 (Rec: 06/07/19 22:09 FZN3399 MED-C07) Document 06/08/19 05:47 NPK7977 (Rec: 06/08/19 05:48 JFZ9445 MED-C07) Document 06/08/19 14:00 WBC3943 (Rec: 06/08/19 14:30 GCZ6048 MED-C09) Document 06/08/19 22:00 BYG3229 (Rec: 06/08/19 22:02 MAM5179 MED-C09) Document 06/09/19 04:46 KAJ7439 (Rec: 06/09/19 04:47 YUC1278 MED-C07) Document 06/09/19 13:22 SMC4957 (Rec: 06/09/19 13:22 UEY1742 MED-C09) Document 06/09/19 22:00 HFK2759 (Rec: 06/09/19 23:59 BYN3753 MED-C04) Document 06/10/19 05:53 UHX4711 (Rec: 06/10/19 05:55 SPK2387 MED-C04) Document 06/10/19 13:39 CIV8508 (Rec: 06/10/19 13:40 QMB9939 MED-C05) Document 06/10/19 22:00 VGA9676 (Rec: 06/10/19 22:20 USI7010 MED-C09) Document 06/11/19 04:03 RIM1942 (Rec: 06/11/19 04:04 JRX0967 MED-C11) Document 06/11/19 14:00 QLZ9067 (Rec: 06/11/19 14:08 PXV8813 MED-C11) Document 06/11/19 22:00 XIJ9668 (Rec: 06/11/19 22:14 WGR0646 MED-C11) Document 06/12/19 05:01 ZWI6696 (Rec: 06/12/19 05:01 OOV0232 MED-C11) Document 06/12/19 14:00 YJW0381 (Rec: 06/12/19 14:13 JQN3661 MED-C11) Document 06/12/19 21:55 FEV9913 (Rec: 06/12/19 21:55 DQF8148 MED-C09) Document 06/13/19 06:00 SRT4013 (Rec: 06/13/19 06:33 BAI8377 MED-C09) Document 06/13/19 14:00 HFO2489 (Rec: 06/13/19 16:20 JBX0486 MED-C04) Document 06/14/19 06:00 AML5830 (Rec: 06/14/19 06:08 FTV0364 MED-C11) Document 06/14/19 13:56 WEJ3615 (Rec: 06/14/19 13:57 IPD6861 MED-C11) Document 06/14/19 22:00 SRN3893 (Rec: 06/14/19 22:19 NNS1575 MED-C09) Document 06/15/19 05:33 RZX6328 (Rec: 06/15/19 05:34 TBK5376 MED-C13) Document 06/15/19 14:00 NID8975 (Rec: 06/15/19 14:49 RJO5659 MED-C11) Document 06/15/19 21:46 WWU0615 (Rec: 06/15/19 21:47 TFJ2842 MED-C07) Document 06/16/19 05:37 WDS2112 (Rec: 06/16/19 05:38 GIO3888 MED-C09) - Physical Exam General: No Cyanosis, No Anemia, No Jaundice, No Clubbing Lungs and Chest: Yes: Chest Expansion Full, Chest Expansion Symetrica, Percussion Note Resonant, Vessicular Breath Sounds. No: Crackles, Wheezes Heart Rate and Rhythm: Regular Additional Cardiovascular: Yes: Normal Heart Sounds. No: Heart Murmur, Pedal Edema Abdominal Exam: Yes: Soft, Bowel Sounds Present. No: Distention, Abdominal Tenderness Results - Results Lab Results: Laboratory Results - last 24 hr 06/14/19 06/16/19 06/16/19 11:14 04:07 04:09 Sodium 132 L Potassium 4.4 Chloride 107 Carbon Dioxide 21 L Anion Gap 4 BUN 21 Creatinine 0.80 Est GFR ( Amer) 112.8 Est GFR (Non-Af Amer) 93.3 BUN/Creatinine Ratio 26.3 H Glucose 88 Calcium 9.4 Ionized Calcium 1.40 H Magnesium 1.6 L L[place] Total Antibody Negative Assessment - Problem List Assessment: Patient Problems Adenopathy (Acute) Altered mental state (Acute) Frailty (Acute) Hypercalcemia (Acute) Hypomagnesemia (Acute) Ischemic pain of right foot (Acute) Malnutrition (Acute) Peripheral arterial disease (Acute) 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 I don't know if he is still sundowning. Adenopathy (Acute) Pending pathology from lymph node biopsy Frailty (Acute) He appears a little more robust today Hypercalcemia (Acute) This is unchanged - given that his mental state has cleared despite unchanged calcium, I don't think the hypercalcemia is the cause of his altered mental state. 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 She was with him last night and was a little confused - but much better. She wonders if the short infusion of antibacterials may have helped. She would like him on antibacterials - doesn't know where the infection is. I will give him cefdinir.
[2019-06-16] MEDS: Finasteride TAB* 5 MG PO SCH (09:44)
[2019-06-16] MEDS: Magnesium Oxide TAB* 400 MG PO SCH ×2 (09:44→21:20)
[2019-06-16] MEDS: predniSONE TAB* 5 MG PO SCH (09:45)
[2019-06-16] MEDS: Gabapentin CAP(*) 300 MG PO SCH ×3 (09:45→21:22)
[2019-06-16] MEDS: Atorvastatin* 40 MG TAB PO SCH (09:45)
[2019-06-16] MEDS: Potassium Chlor TAB* 20 MEQ TAB.ER PO SCH ×2 (09:45→21:21)
[2019-06-16] MEDS: Clopidogrel TAB* 75 MG PO SCH (09:45)
[2019-06-16] MEDS: Vitamin THERAPEUTIC TAB PO SCH (09:45)
[2019-06-16] MEDS: levETIRAcetam TAB* 500 MG PO SCH ×2 (09:46→21:23)
[2019-06-16] MEDS: Enoxaparin(*) 40 MG/0.4 ML SYR SUBCUT SCH (15:08)
[2019-06-16] MEDS: Acetaminophen TAB* 325 MG PO PRN (17:35)
[2019-06-16] MEDS: Latanoprost 0.005%* 2.5 ml BTL BOTH EYES SCH (21:19)
[2019-06-16] MEDS: Cefdinir cap* 300 MG CAP PO SCH (21:20)
[2019-06-17] MEDS: Gabapentin CAP(*) 300 MG PO SCH ×2 (08:57→12:37)
[2019-06-17] MEDS: levETIRAcetam TAB* 500 MG PO SCH (08:57)
[2019-06-17] MEDS: Atorvastatin* 40 MG TAB PO SCH (08:57)
[2019-06-17] MEDS: Magnesium Oxide TAB* 400 MG PO SCH (08:57)
[2019-06-17] MEDS: Finasteride TAB* 5 MG PO SCH (08:57)
[2019-06-17] MEDS: Clopidogrel TAB* 75 MG PO SCH (08:57)
[2019-06-17] MEDS: predniSONE TAB* 5 MG PO SCH (08:57)
[2019-06-17] MEDS: Vitamin THERAPEUTIC TAB PO SCH (08:57)
[2019-06-17] MEDS: Cefdinir cap* 300 MG CAP PO SCH (08:58)
[2019-06-17] MEDS: Potassium Chlor TAB* 20 MEQ TAB.ER PO SCH (08:58)
--- NOTE | 2019-06-17 11:57 | TRS ---
CC: [facility]; Dr. May Castillo * DISCHARGE/TRANSFER SUMMARY: DATE OF ADMISSION: 06/02/19 DATE OF DISCHARGE: 06/17/19 to [facility]. DIAGNOSES: 1. Altered mental status. 2. Hypercalcemia. 3. Hypomagnesemia. 4. Occult infection. SECONDARY DIAGNOSES/COMORBIDITIES: 1. Adenopathy with fine needle aspiration biopsy of benign reactive lymph node. 2. Peripheral artery disease post below-knee amputation of right leg. 3. Anemia. 4. Benign prostatic hyperplasia. 5. Cutaneous lupus erythematosus. 6. Essential hypertension. 7. Lumbar radiculopathy. 8. Osteoporosis. 9. Psoriatic arthritis. 10. Secondary adrenal insufficiency. 11. Seizure disorder. DISPOSITION: [facility]. CONDITION: Improved, but frail with intact mental state. HISTORY: Marky Tong is a 78-year-old white male. His presentation is documented in [facility]offey's admitting history and physical. In short, he has a prior history as noted above and presented to the emergency room with confusion, increased unsteadiness, some urinary frequency and urgency. Denied symptoms of fever. He almost fell out of bed the night before admission. No recent changes in his medication. PHYSICAL EXAM: Temperature 99.5, pulse rate 48, respirations 14, oxygen saturation 97% on room air, blood pressure 151/76. No focal findings on examination. INITIAL DIAGNOSTIC TESTS: White count 5.3, hemoglobin 11, platelets 175, INR 0.97. Sodium 138, potassium 3.2, chloride 104, bicarbonate 27, BUN 12, creatinine 0.99, glucose 120, lactic acid 2.5, calcium 11.3, magnesium 1.4. Bilirubin 1.1, AST 19, ALT 11, alkaline phosphatase 59. C-reactive protein 22. Protein 6.5, albumin 3.2, globulin 3.3. TSH 1.49. EKG: Sinus rhythm, left axis deviation. INITIAL IMPRESSION: Weakness and confusion; possibly secondary to urinary tract infection, benign prostatic hyperplasia, and peripheral vascular disease. INVESTIGATIONS: On admission, his neutrophil percentage was 97.4, which did not increase during his hospitalization. His hemoglobins during his hospital stay went to as low as 10.2. Chemistry: Lactic acid at presentation 2.5. C- reactive protein peaked on 06/08/19 at 65 and 2 days before discharge was 6.25. He had multiple evaluations for hypercalcemia. His intact PTH was 1.6 with a simultaneous calcium of 10.3 which ruled out primary hyperparathyroidism, his 25 -hydroxy vitamin D was 31 and his 125-dihydroxy vitamin D was 42, making granuloma unlikely. Serum protein electrophoretic strip showed no monoclonal band. PTH related peptide was 0.5. I note that during his hospitalization his total calcium levels normalized down to 9.4 on 06/16/19; however, his ionized calcium remained a little high at 1.4 mmol/L. Initial urinalysis showed 1+ leukocyte esterase. Microbiology had negative urine culture. Imaging: On 06/02/19, chest x-ray, hyperinflation, but no acute changes. On , brain CT scan, no intracranial pathology. On 06/05/19, abdominal and bladder ultrasound, no hydronephrosis or nephrolithiasis. There was a polyp on his bladder wall and an enlarged prostate. On 06/06/19, chest x-ray, no acute changes. On 06/08/19, CAT scan of chest, abdomen, and pelvis, mildly enlarged lymph nodes, compression fracture at T7 vertebral body, thickening of the urinary bladder. PROCEDURES: He had a lymph node biopsy and ultrasound from his axilla on , which showed a reactive lymph node and no evidence of monoclonality. HOSPITAL COURSE: During the majority of his hospital stay, he was disoriented and confused. About 3 days prior to discharge, he started to become less disoriented. He developed in one evening redness of his distal left foot and the nurse persuaded me to start him on IV Zosyn and his attributed his improvement in mental status to the use of Zosyn, which was only given one time. I then changed him on to Cefdinir. Apparently, he has had a mild fever for some time, which comes and goes, and she thinks that this suppressed the chronic occult bacterial source. On the day of discharge, he is sitting in his chair, having eaten breakfast independently. I watched him walk. He stood up with somebody standing by with his prosthetic limb on and walked out to the door with a walker. He was able to turn independently and sit himself down again. He was fully oriented and understood his situation. REVIEW OF SYSTEMS: Negative, aside from generalized weakness. PHYSICAL EXAM: On the day of discharge, temperature 98.7, heart rate 77, respiration 16, oxygen saturation 100%, blood pressure 108/68. He is warm and well perfused. He is not in any distress. He is fully conversant and understands his situation. He has no cyanosis, jaundice, or clubbing. Slightly pale. Respiratory System: Chest expansion, full and symmetrical percussion and resonant breath sounds, vesicular. No crackles or wheezes. Cardiovascular System: His pulse was regular. Heart sounds were normal. No added sounds or murmurs. No edema of his left foot. Abdomen: No distention, masses, or organomegaly. Nervous System: He has normal speech and mood, conjugate eye movements. Cranial nerves II through XII intact to arms and legs. No focal weakness, though he is generally a little frail. Skin was normal. ASSESSMENT AND PLAN: 1. Altered mental status. The underlying cause of this remains unclear; however, it does not seem to be secondary to his hypercalcemia. He improved after giving a dose of Zosyn, which may be a coincidence, but I am giving him a full 5-day course of cefdinir, which is an oral equivalent. He is frail and hence, we are transferring him to a long term facility for rehabilitation. 2. Hypercalcemia. We have not got to the bottom of this. His ionized calcium remains a little high, but his total calcium is acceptable. I do not think he needs a bisphosphonate treatment. We are awaiting his FAITH levels; however, it may be that prolonged bedrest may have been responsible for some of this hypercalcemia. We will recheck his labs in a week. 3. Adenopathy. We biopsied one of the enlarged lymph nodes in his axilla and this showed a reactive lymph node and hence, he has not got an occult lymphoma unless one of the other lymph nodes are involved. 4. Hypomagnesemia. We will continue his current treatment. 5. Ischemic pain of left foot. He has a small eschar on the tip of his third toe; otherwise, a little bit of erythema, but no evidence of infection and no evidence of gangrene. The pain comes and goes. We stopped sildenafil, which we have tried, but he seems to be managing well. 6. History of amputation, right lower leg below the knee. He needs a refitting of his prosthesis. 7. Peripheral artery disease. This remains a big problem. 8. Malnutrition. He did not eat much for several days and hence, has become weaker. 9. Anemia. This remains fairly steady. 10. BPH. He is urinating reasonably. 11. Cutaneous lupus. This is stable. 12. Essential hypertension. His blood pressure is a bit on the low side. He usually takes fludrocortisone and salt for this. I will reinstitute these. 13. Lumbar radiculopathy. No back pain. 14. Osteoporosis. He has a thoracic spine compression fracture. He would benefit from a bisphosphonate. I will leave this to Dr. May Castillo. My recommendation would be zoledronic acid. 15. Psoriatic arthritis. Stable. 16. Secondary adrenal insufficiency. He is managing on prednisone. I have restarted his fludrocortisone and salt tablets as he is re-developing orthostatic hypotension 17. Seizure disorder. He had no such problems during the hospitalization. He had an EEG on 06/04/19, which showed diffuse slowing suggestive of encephalopathy. DISCHARGE MEDICATIONS: 1. Cefdinir 300 mg twice daily for a total of another 4 days. 2. Finasteride 5 mg daily. 3. Travoprost Z 0.004% ophthalmic 1 drop to both eyes at bedtime. 4. Calcium carbonate and vitamin D 600/400 units 1 tablet daily. 5. Acetaminophen 650 mg every 6 hours as needed for pain. 6. Albuterol HFA inhaler 2 puffs every 4 hours as needed for dyspnea. 7. Oxycodone/acetaminophen 5 mg/325 mg 1 to 2 tablets every 6 hours for moderate- to-severe pain. 8. Prednisone 10 mg daily. 9. Gabapentin 600 mg t.i.d. 10. Multivitamin 1 a day. 11. Clopidogrel 75 mg daily. 12. Fludrocortisone 0.1 mg daily. 13. Omeprazole 40 mg daily. 14. Sodium chloride tablets 2 tablets twice daily. 15. Magnesium oxide 1 twice daily. 16. Atorvastatin 40 mg at bedtime. 17. Sildenafil 0.5 mg daily. 18. Levetiracetam 500 mg twice daily. 19. Potassium chloride 10 mEq every day. I have stopped his demeclocycline, which we can restart once his antibiotics are stopped. The dose is usually 150 mg twice daily. DISCHARGE DISPOSITION: We are discharging him and transferring him [facility], where he will have subacute rehabilitation and will follow up with a transition of care visit with Dr. May Castillo once he is discharged home. [id number]/[facility] #: [id number] DANA
[2019-06-17] MEDS ORDERED: Fludrocortisone Acetate TAB* 0.1 MG PO ONE (12:30)
[2019-06-17] MEDS ORDERED: Sodium Chloride TAB* 1 GM PO ONE (13:00)
[2019-06-17 14:26] VITALS: BP 118/52
[2019-06-23 12:23] LABS: Vitamin A, S 45.4 mcg/dL (32.5-78.0)
== END 2019-06-17 13:15 | DRG 940 ==
LOC: ED 08:04 → MED 14:52 → OBSVTOIN 06-03 11:00
PROVIDERS: ADMIT Hospitalist; ATTEND Internal Medicine
PROC: 4A00X4Z Measurement of Central Nervous Electrical Activity, External Approach (ICD-10-PCS; 2019-06-04)
PROC: 07B63ZX Excision of Left Axillary Lymphatic, Percutaneous Approach, Diagnostic (ICD-10-PCS; principal; 2019-06-12)
DX: R41.82 Altered mental status, unspecified (principal); E27.40 Unspecified adrenocortical insufficiency; E87.1 Hypo-osmolality and hyponatremia; E46 Unspecified protein-calorie malnutrition; N13.8 Other obstructive and reflux uropathy; E27.49 Other adrenocortical insufficiency; M48.54XA Collapsed vertebra, not elsewhere classified, thoracic region, initial encounter for fracture; I73.9 Peripheral vascular disease, unspecified; I10 Essential (primary) hypertension; M35.3 Polymyalgia rheumatica; M45.9 Ankylosing spondylitis of unspecified sites in spine; M19.90 Unspecified osteoarthritis, unspecified site; M81.0 Age-related osteoporosis without current pathological fracture; M54.16 Radiculopathy, lumbar region; D63.1 Anemia in chronic kidney disease; G40.909 Epilepsy, unspecified, not intractable, without status epilepticus; K44.9 Diaphragmatic hernia without obstruction or gangrene; J30.2 Other seasonal allergic rhinitis; N40.1 Benign prostatic hyperplasia with lower urinary tract symptoms; R32 Unspecified urinary incontinence; H40.9 Unspecified glaucoma; E87.6 Hypokalemia; E83.52 Hypercalcemia; E83.42 Hypomagnesemia; D41.4 Neoplasm of uncertain behavior of bladder; K42.9 Umbilical hernia without obstruction or gangrene; R59.9 Enlarged lymph nodes, unspecified; L93.2 Other local lupus erythematosus; L40.50 Arthropathic psoriasis, unspecified; E78.5 Hyperlipidemia, unspecified; D64.9 Anemia, unspecified; W06.XXXA Fall from bed, initial encounter; M79.672 Pain in left foot; D41.9 Neoplasm of uncertain behavior of unspecified urinary organ; Z98.41 Cataract extraction status, right eye; Z98.42 Cataract extraction status, left eye; Y92.9 Unspecified place or not applicable; Z88.8 Allergy status to other drugs, medicaments and biological substances; Z88.1 Allergy status to other antibiotic agents; Z88.2 Allergy status to sulfonamides; Z88.5 Allergy status to narcotic agent; Z82.3 Family history of stroke; Z82.49 Family history of ischemic heart disease and other diseases of the circulatory system; Z87.891 Personal history of nicotine dependence; Z89.511 Acquired absence of right leg below knee; Z79.02 Long term (current) use of antithrombotics/antiplatelets; Z79.52 Long term (current) use of systemic steroids
CPT/HCPCS: 10005; 36415; 70450; 70551; 71045; 71260; 74177; 76770; 80048; 80053; 81003; 81015; 82140; 82164; 82306; 82330; 82397; 82570; 82607; 82652; 83605; 83615; 83735; 83921; 83930; 83935; 83970; 84100; 84134; 84155; 84165; 84300; 84443; 84484; 84590; 85025; 85027; 85610; 85652; 86038; 86140; 86618; 87040; 87086; 88172; 88173; 88184; 88185; 88187; 88188; 88189; 88305; 88341; 88342; 93005; 94762; 95816; 99284; A9270-GY; G8978-GP-CJ; G8978-GP-CK; G8978-GP-CM; G8979-GP-CI; G8979-GP-CJ; G8987-GO-CM; G8988-GO-CJ; J0696; J0744; J1650; J2543; J3475; J7512; Q9967

== ENCOUNTER 2019-07-11 11:47 | Inpatient (IN) | payer MEDICARE ==
[2019-07-11 17:00] LABS: Urine Appearance Cloudy; Urine Bacteria 1+ (Absent); Urine Bilirubin Negative (Negative); Urine Blood 1+ (Negative); Urine Color Yellow; Urine Glucose Negative (Negative); Urine Ketones Negative (Negative); Urine Nitrite Negative (Negative); Urine Protein Negative (Negative); Urine Red Blood Cell 2+(6-10/hpf) (Absent); Urine Specific Gravity 1.011 (1.010-1.030); Urine Urobilinogen Negative (Negative); Urine White Blood Cell 3+(>20/hpf) (Absent)
[2019-07-11 17:00] LABS: ABS Basophils 0.1 10^3/ul (0-0.2); ABS Eosinophils 0.1 10^3/ul (0-0.6); ABS Lymphocytes 2.3 10^3/ul (1.0-4.8); ABS Neutrophils 2.7 10^3/ul (1.5-7.7); Eosinophil % 0.9 %; Hematocrit 27 % (42-52); Hemoglobin 9.4 g/dL (14.0-18.0); Lymphocyte % 37.7 %; Mean Corpuscular HGB Conc 35 g/dL (31-36); Mean Corpuscular Hemoglobin 30 pg (27-31); Mean Corpuscular Volume 84 fL (80-94); Mean Platelet Volume 6.2 fL (7.4-10.4); Platelet Count 168 10^3/uL (150-450); Red Blood Count 3.19 10^6 /uL (4.18-5.48); Red Cell Distribution Width 16 % (10-15); White Blood Count 6.1 10^3/uL (3.5-10.8)
[2019-07-11] MEDS ORDERED: Acetaminophen TAB* 325 MG PO PRN (17:00)
[2019-07-11 17:28] LABS: Albumin 2.8 g/dL (3.2-5.2); Albumin/Globulin Ratio 0.9 (1-3); BUN/Creatinine Ratio 12.5 (8-20); C Reactive Protein 71.54 mg/L (<8.01); Calcium 8.2 mg/dL (8.6-10.3); EGFR African American 112.8 (>60); EGFR Non-African American 93.3 (>60); Globulin 3.2 g/dL (2-4); Magnesium 1.2 mg/dL (1.9-2.7); Phosphorus 2.7 mg/dL (2.5-5.0); Total Bilirubin 1.2 mg/dL (0.2-1.0)
[2019-07-11 17:34] LABS: Potassium 2.7 mmol/L (3.5-5.0)
[2019-07-11] MEDS ORDERED: Lactated Ringers 1000 ML Bag* 1,000 ML IV ONE (17:44)
[2019-07-11] MEDS: predniSONE TAB* 10 MG PO SCH (17:59)
[2019-07-11] MEDS: KCL 20 MEQ/100 ML IVPREMIX* 20 MEQ/100 ML BAG IV SCH ×2 (17:59→21:42)
[2019-07-11] MEDS ORDERED: Magnesium Sulfate IV* 3 GM in NS 0.9% 100 ML* 100 ML IVPB ONE (18:00)
[2019-07-11] MEDS: Saline FLUSH-PERIPHERAL* 10 ML SYRINGE PERIPH SCH (18:32)
[2019-07-11] MEDS ORDERED: NS 0.9% 100 ML* 100 ML ONE (21:19)
[2019-07-11] MEDS: Sodium Chloride TAB* 1 GM PO SCH (21:36)
[2019-07-11] MEDS: levETIRAcetam TAB* 500 MG PO SCH (21:37)
[2019-07-11] MEDS: Latanoprost 0.005%* 2.5 ml BTL BOTH EYES SCH (21:37)
--- NOTE | 2019-07-12 01:50 | HP ---
HISTORY AND PHYSICAL: DATE OF ADMISSION: 07/11/19 HISTORY: John Tong is a 78-year-old man being admitted with weakness and diarrhea. The patient began to have diarrhea about 3 days ago. He woke up on Sunday morning with severe diarrhea, had multiple watery stools. He has been eating very little. He had some loose stools yesterday and has had 3 loose stools today. He has been very weak. He has been weaker each day. He has not taken any medications or eaten anything today. He did have dinner last night, small amount of meatloaf, rice, and peas. He presented to my office today, was quite weak, and is being admitted at this time. Of note, he had increased his dose of magnesium on Sunday07/06/19 because of low magnesium. He has also been on cefdinir recently for infection in his foot. The patient has a complicated past medical history. The patient was recently hospitalized from 06/02/19 to 06/17/19. He presented at that time with confusion , somnolence, had fallen. Workup at that time was significant for hypercalcemia. He had lymphadenopathy. 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 He has been seen by Oncology and currently is being monitored for that. No chemotherapy recommended at this time. PAST MEDICAL HISTORY: Includes: 1. Peripheral artery disease with fairly recent right leg below-knee amputation and peripheral vascular disease on the opposite leg, currently being treated with sildenafil. 2. Anemia of chronic disease. 3. BPH. 4. 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 5. Essential hypertension in the past, although recently has been on fludrocortisone for orthostatic hypotension. 6. History of lumbar radiculopathy. 7. Osteoporosis. 8. 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 9. Secondary adrenal insufficiency. 10. Seizure disorder, treated with Keppra. 11. History of hyponatremia. PAST SURGICAL HISTORY: Includes: 1. Right below-knee amputation following procedures for peripheral vascular disease, which were unsuccessful. 2. Right rotator cuff repair. 3. Bilateral cataract extractions. 4. Left rotator cuff repair. 5. Left lateral elbow release. 6. Tonsillectomy. 7. Left hydrocele repair. CURRENT MEDICATIONS: 1. Finasteride 5 mg daily. 2. Travoprost 0.004% one drop both eyes at bedtime. 3. Acetaminophen 650 p.r.n. 4. Prednisone 10 mg daily. 5. Gabapentin 600 mg 3 times a day. 6. Clopidogrel 75 mg daily. 7. Fludrocortisone 0.1 mg tab daily. 8. Omeprazole 20 mg daily. 9. Sodium chloride 2 g p.o. b.i.d. 10. Magnesium oxide 250 mg 2 pills 3 times a day, stopped yesterday. 11. Sildenafil 20 mg one-half tablet daily. 12. Levetiracetam 500 mg twice a day. 13. Potassium chloride 20 mEq daily. 14. Cefdinir 300 mg twice a day. ALLERGIES TO MEDICATIONS: 1. SULFA caused rash. 2. CLINDAMYCIN caused rash. 3. HYDROXYCHLOROQUINE had caused diarrhea and change in mental status. 4. METHOTREXATE caused mouth ulcers. 5. AZATHIOPRINE caused nausea, vomiting, diarrhea. 6. LOTENSIN caused cough. 7. DYAZIDE caused rash. 8. GLUCOSAMINE SULFATE? 9. FOSAMAX? 10. CELEBREX? HABITS: Tobacco: None. EtOH: None. FAMILY HISTORY: Noncontributory. SOCIAL AND PERSONAL HISTORY: The patient is . He lives in his own home. His and son are with him today. His was recently in a severe car accident, was hospitalized at [facility] with multiple contusions. She is doing better. This happened 1 week ago. He is retired. REVIEW OF SYSTEMS: Generally, he has been very weak. His appetite is poor. He denies fevers, but he has been shaky. He has not had chills or sweats. Skin : See above. HEENT: Negative. Nodes: See above. Endocrine: See above. Heme: See above. Respiratory: Denies shortness of breath, chest pain. Cardiovascular: See above. GI: See above. He denies nausea or vomiting. : His son states that his urine was very dark this morning. He is not urinating as much as normal. Musculoskeletal: See above. Neuro: See above. Psychiatric: He has been depressed with all his recent health challenges. PHYSICAL EXAMINATION VITAL SIGNS: Blood pressure 139/61, pulse 64, respirations 16, temperature 99.1 , O2 sat 100%. HEENT: Atraumatic, normocephalic. Full EOMs. Mouth: Pharynx, mucous membranes appear moist. NODES: Palpable nodes in the axillary areas. CHEST: Clear. HEART: Normal S1, S2. There are no murmurs, gallops, or rubs. Abdomen: Soft, diffuse lower abdominal tenderness without rebound or guarding. There are no masses or organomegaly. Bowel sounds are active. EXTREMITIES: Show a right BKA, left leg without edema. He has an scabbed areas on his left great toe and third toe and lateral fifth MTP joint. These appear dry. His foot does not appear as erythematous as it did when I saw him 1 week ago. NEUROLOGIC: He is without gross focal or lateralizing signs. SKIN: Warm and dry with multiple areas of hypopigmentation. LABORATORY DATA: WBC 6.1, H and H 9.4/27, MCV 84, PLT` 168K. Chemistries: Sodium 131, potassium 3.7, chloride 104, CO2 of 21, BUN/creatinine 10/0.8, calcium 8.2, magnesium 1.2, total bilirubin 1.2, CRP 71.54. Total protein/ albumin 6/2.8. Urinalysis: Yellow, cloudy, specific gravity 1.011, blood 1+, esterase 3+, wbc's 3+, rbc's 2+, bacteria 1+, yeast present. IMPRESSION AND PLAN: The patient with weakness with diarrhea, presenting with severe hypokalemia. Plan is to replete his potassium, magnesium. Stool will be collected for fecal lactoferrin, Hemoccult, and Clostridium difficile. He will get IV fluids. He is being admitted for observation. Labs will be repeated tomorrow. DVT prophylaxis will be determined after received the results of his stool guaiac. He is DNR per his previous wishes. [id number]/[facility] #: [id number] [facility]
[2019-07-12] MEDS: Acetaminophen TAB* 325 MG PO PRN ×2 (02:20→16:33)
[2019-07-12] MEDS: KCL 20 MEQ/100 ML IVPREMIX* 20 MEQ/100 ML BAG IV SCH (02:20)
[2019-07-12] MEDS: Saline FLUSH-PERIPHERAL* 10 ML SYRINGE PERIPH SCH ×3 (02:21→16:33)
[2019-07-12] MEDS ORDERED: traMADol TAB* 50 MG PO PRN (04:24)
[2019-07-12] MEDS: Vancomycin CAP* 125 MG CAP PO SCH ×5 (04:57→20:26)
[2019-07-12 06:57] LABS: ABS Lymphocytes 2.1 10^3/ul (1.0-4.8); ABS Monocytes 1.1 10^3/ul (0-0.8); ABS Neutrophils 4.1 10^3/ul (1.5-7.7); Corrected Retic Count 1.1 % (0.5-1.5); Eosinophil % 0.2 %; Hematocrit 29 % (42-52); Hematocrit for Retic CNT 29 % (42-52); Hemoglobin 10.1 g/dL (14.0-18.0); Immature Retic Fraction 0.43; Lymphocyte % 28.5 %; Mean Corpuscular HGB Conc 34 g/dL (31-36); Mean Corpuscular Hemoglobin 29 pg (27-31); Mean Corpuscular Volume 84 fL (80-94); Mean Platelet Volume 6.3 fL (7.4-10.4); Nucleated Red Blood Cells % 0.1; Platelet Count 202 10^3/uL (150-450); RBC Retic Count 3.47 10^6/uL (4.18-5.48); Red Blood Count 3.47 10^6 /uL (4.18-5.48); Red Cell Distribution Width 16 % (10-15); White Blood Count 7.3 10^3/uL (3.5-10.8)
[2019-07-12 07:16] LABS: Albumin/Globulin Ratio 0.9 (1-3); BUN/Creatinine Ratio 14.5 (8-20); C Reactive Protein 88.64 mg/L (<8.01); Calcium 8.3 mg/dL (8.6-10.3); EGFR African American 119.7 (>60); EGFR Non-African American 98.9 (>60); Globulin 3.4 g/dL (2-4); Magnesium 1.7 mg/dL (1.9-2.7); Phosphorus 2.6 mg/dL (2.5-5.0); Potassium 3.4 mmol/L (3.5-5.0); Total Bilirubin 1.2 mg/dL (0.2-1.0); Total Protein 6.4 g/dL (6.4-8.9)
[2019-07-12 08:07] LABS: Ferritin 353.6 ng/mL (24-336)
[2019-07-12] MEDS: Sodium Chloride TAB* 1 GM PO SCH ×2 (09:01→20:24)
[2019-07-12] MEDS: Fludrocortisone Acetate TAB* 0.1 MG PO SCH (09:02)
[2019-07-12] MEDS: Potassium Chlor TAB* 20 MEQ TAB.ER PO SCH ×3 (09:02→20:26)
[2019-07-12] MEDS: Atorvastatin* 40 MG TAB PO SCH (09:02)
[2019-07-12] MEDS: predniSONE TAB* 10 MG PO SCH (09:02)
[2019-07-12] MEDS: Finasteride TAB* 5 MG PO SCH (09:02)
[2019-07-12] MEDS: levETIRAcetam TAB* 500 MG PO SCH ×2 (09:02→20:24)
[2019-07-12] MEDS: Clopidogrel TAB* 75 MG PO SCH (09:03)
[2019-07-12] MEDS: Pantoprazole TAB * 40 MG TAB PO SCH (09:03)
[2019-07-12] MEDS: CMCS: Sildenafil (PULMONARY)(NF) 20 MG TAB PO SCH (09:03)
[2019-07-12] MEDS ORDERED: Magnesium Sulfate 2 GM IV* 2 GM/50 ML BAG IVPB ONE (09:40)
[2019-07-12] MEDS: Latanoprost 0.005%* 2.5 ml BTL BOTH EYES SCH (20:27)
[2019-07-13] MEDS: Saline FLUSH-PERIPHERAL* 10 ML SYRINGE PERIPH SCH ×3 (00:41→15:16)
[2019-07-13 06:59] LABS: ABS Eosinophils 0.1 10^3/ul (0-0.6); ABS Lymphocytes 3.4 10^3/ul (1.0-4.8); ABS Monocytes 1.5 10^3/ul (0-0.8); ABS Neutrophils 3.2 10^3/ul (1.5-7.7); Hematocrit 28 % (42-52); Hemoglobin 9.9 g/dL (14.0-18.0); Lymphocyte % 41.4 %; Mean Corpuscular HGB Conc 36 g/dL (31-36); Mean Corpuscular Hemoglobin 30 pg (27-31); Mean Corpuscular Volume 83 fL (80-94); Mean Platelet Volume 6.2 fL (7.4-10.4); Nucleated Red Blood Cells % 0.1; Platelet Count 214 10^3/uL (150-450); Red Blood Count 3.35 10^6 /uL (4.18-5.48); Red Cell Distribution Width 16 % (10-15); White Blood Count 8.2 10^3/uL (3.5-10.8)
[2019-07-13 07:20] LABS: BUN/Creatinine Ratio 8.9 (8-20); C Reactive Protein 55.81 mg/L (<8.01); Calcium 7.9 mg/dL (8.6-10.3); EGFR African American 114.5 (>60); EGFR Non-African American 94.6 (>60); Magnesium 1.8 mg/dL (1.9-2.7); Potassium 3.2 mmol/L (3.5-5.0)
[2019-07-13] MEDS: Clopidogrel TAB* 75 MG PO SCH (10:19)
[2019-07-13] MEDS: Sodium Chloride TAB* 1 GM PO SCH ×2 (10:19→20:50)
[2019-07-13] MEDS: Atorvastatin* 40 MG TAB PO SCH (10:19)
[2019-07-13] MEDS: predniSONE TAB* 10 MG PO SCH (10:19)
[2019-07-13] MEDS: Fludrocortisone Acetate TAB* 0.1 MG PO SCH (10:20)
[2019-07-13] MEDS: Pantoprazole TAB * 40 MG TAB PO SCH (10:20)
[2019-07-13] MEDS: Finasteride TAB* 5 MG PO SCH (10:20)
[2019-07-13] MEDS: Potassium Chlor TAB* 20 MEQ TAB.ER PO SCH ×4 (10:20→20:50)
[2019-07-13] MEDS: Vancomycin CAP* 125 MG CAP PO SCH ×4 (10:20→20:50)
[2019-07-13] MEDS: levETIRAcetam TAB* 500 MG PO SCH ×2 (10:20→20:50)
[2019-07-13] MEDS: CMCS: Sildenafil (PULMONARY)(NF) 20 MG TAB PO SCH (10:21)
[2019-07-13] MEDS ORDERED: Magnesium Sulfate 2 GM IV* 2 GM/50 ML BAG IVPB ONE (14:42)
--- NOTE | 2019-07-13 15:16 | PN ---
Subjective Date of Service: 07/13/19 Interval History: Reports ongoing diarrhea and reports diarrhea today after eating. But overall frequency improved compared to admission.Denies urinary urgency freq dysuria Objective Active Medications: Acetaminophen (Tylenol Tab*) 650 mg PO Q4H PRN PRN Reason: PAIN - MILD Last Admin: 07/12/19 16:33 Dose: 650 mg Atorvastatin Calcium (Lipitor*) 40 mg PO DAILY JACKIE Last Admin: 07/13/19 10:19 Dose: 40 mg Clopidogrel Bisulfate (Plavix Tab*) 75 mg PO DAILY JACKIE Last Admin: 07/13/19 10:19 Dose: 75 mg Finasteride (Proscar Tab*) 5 mg PO DAILY JACKIE Last Admin: 07/13/19 10:20 Dose: 5 mg Fludrocortisone Acetate (Florinef Tab*) 0.1 mg PO DAILY [facility] Last Admin: 07/13/19 10:20 Dose: 0.1 mg Magnesium Sulfate (Magnesium Sulfate 2 Gm Iv*) 2 gm in 50 mls @ 50 mls/hr IVPB ONCE ONE Stop: 07/13/19 15:41 Latanoprost (Xalatan 0.005%*) 1 drop BOTH EYES BEDTIME JACKIE; Protocol Last Admin: 07/12/19 20:27 Dose: 1 drop Levetiracetam (Keppra Tab*) 500 mg PO BID [facility] Last Admin: 07/13/19 10:20 Dose: 500 mg Pantoprazole Sodium (Protonix Tab*) 40 mg PO DAILY JACKIE Last Admin: 07/13/19 10:20 Dose: 40 mg Potassium Chloride (Klor Con Er Tab*) 20 meq PO DAILY JACKIE Last Admin: 07/13/19 10:20 Dose: 20 meq Potassium Chloride (Klor Con Er Tab*) 20 meq PO TID JACKIE Last Admin: 07/13/19 13:10 Dose: 20 meq Prednisone (Deltasone Tab*) 10 mg PO DAILY JACKIE Last Admin: 07/13/19 10:19 Dose: 10 mg Sildenafil Citrate (Revatio (Nf)) 10 mg PO DAILY [facility]; Protocol Last Admin: 07/13/19 10:21 Dose: 10 mg Sodium Chloride ( Peripheral Saline Flush*) 10 ml PERIPH Q8H JACKIE Last Admin: 07/13/19 10:23 Dose: 10 ml Sodium Chloride (Sodium Chloride Tab*) 2 gm PO BID JACKIE Last Admin: 07/13/19 10:19 Dose: 2 gm Tramadol HCl (Ultram*) 50 mg PO Q4H PRN PRN Reason: PAIN - SEVERE Last Admin: 07/12/19 20:25 Dose: 50 mg Vancomycin HCl (Vancomycin Cap*) 125 mg PO QID [facility] Last Admin: 07/13/19 13:09 Dose: 125 mg Vital Signs - 8 hr 07/13/19 07/13/19 07/13/19 07:45 08:00 11:15 Temperature 97.6 F 97.6 F Pulse Rate 55 54 Respiratory 18 16 16 Rate Blood Pressure 148/70 138/61 (mmHg) O2 Sat by Pulse 100 100 Oximetry Oxygen Devices in Use Now: None Eyes: No Scleral Icterus Neck: NL Appearance and Movements; NL JVP Respiratory: Symmetrical Chest Expansion and Respiratory Effort Cardiovascular: NL Sounds; No Murmurs; No JVD Abdominal: NL Sounds; No Tenderness; No Distention Extremities: No Edema Neurological: Alert and Oriented x 3 Result Diagrams: 07/13/19 06:35 07/13/19 06:35 Microbiology and Other Data: Microbiology 07/11/19 16:07 Urine Culture - Final Urine Enterococcus Faecium Yesica Albicans 07/12/19 02:00 Stool Gross Appearance - Final Stool C. difficile DNA Amplification - Final 027 Presumptive NEGATIVE Toxigenic C.diff POSITIVE Stool Occult Blood (ALEKSANDR) - Final 07/12/19 02:00 Stool Gross Appearance - Final Stool Stool Lactoferrin - Final Assess/Plan/Problems-Billing Assessment: - Patient Problems (1) C. difficile colitis Current Visit: Yes Status: Acute Code(s): A04.72 - ENTEROCOLITIS D/T CLOSTRIDIUM DIFFICILE, NOT SPCF RECUR SNOMED Code(s): 996082152 Comment: Improving slowly on Po Vanco Advance diet slowly as tolerated Recent antibiotic use Continue PO Vanco for now First episode of C diff (2) Hypomagnesemia Current Visit: Yes Status: Acute Code(s): E83.42 - HYPOMAGNESEMIA SNOMED Code(s): 913211237 Comment: Will replace with Iv Mg 2g PO Mag can be a laxative. Consider SlowMag /sustained release Mg which causes less diarrhea after C diff and diarrhea resolved if further problems with hypoMg as outpt Will defer PO Mg for now and replace IV (3) Hypokalemia Current Visit: Yes Status: Acute Code(s): E87.6 - HYPOKALEMIA SNOMED Code( s): 95270882 Comment: Replacing PO GI K loss in setting of diarrhea (4) Metabolic acidosis Current Visit: Yes Status: Acute Code(s): E87.2 - ACIDOSIS SNOMED Code(s) : 32436274 Comment: From GI loss Sodium Bicarbonate 650 mg tid for 1-2 days till diarrhea improves (5) T-cell lymphoma Current Visit: Yes Status: Acute Code(s): C85.90 - NON-HODGKIN LYMPHOMA, UNSPECIFIED, UNSPECIFIED SITE SNOMED Code(s): 569752340 Comment: Recent diagnosis Has seen Heme/Onc Further plan per them (6) UTI (urinary tract infection) Current Visit: Yes Status: Acute Comment: Urine cx positive Enteroccus,Yeast Enterococcus sensitive to Vanco However no symptoms of UTI Will repeat UA,urine Cx Avoid unnecessary antibiotic Status and Disposition: Slowly improving. Grand children and kids visiting at home.Poss discharge in 1- 2 days per clinical improvement
[2019-07-13 17:54] LABS: Urine Appearance Clear; Urine Bilirubin Negative (Negative); Urine Blood Negative (Negative); Urine Color Yellow; Urine Glucose Negative (Negative); Urine Ketones Negative (Negative); Urine Nitrite Negative (Negative); Urine Protein 1+(30 mg/dL) (Negative); Urine Urobilinogen Negative (Negative)
[2019-07-13 18:05] LABS: Urine Bacteria Absent (Absent); Urine Red Blood Cell 1+(3-5/hpf) (Absent); Urine White Blood Cell 1+(6-10/hpf) (Absent)
[2019-07-13] MEDS: Sodium Bicarbonate (ANTACID)* 650 MG TAB PO SCH (20:50)
[2019-07-13] MEDS: Acetaminophen TAB* 325 MG PO PRN (20:50)
[2019-07-13] MEDS: Latanoprost 0.005%* 2.5 ml BTL BOTH EYES SCH (21:01)
[2019-07-14] MEDS: Saline FLUSH-PERIPHERAL* 10 ML SYRINGE PERIPH SCH ×3 (02:08→17:22)
[2019-07-14 06:37] LABS: ABS Eosinophils 0.1 10^3/ul (0-0.6); ABS Lymphocytes 3.2 10^3/ul (1.0-4.8); ABS Monocytes 1.2 10^3/ul (0-0.8); ABS Neutrophils 3.2 10^3/ul (1.5-7.7); Eosinophil % 0.7 %; Hematocrit 28 % (42-52); Hemoglobin 9.7 g/dL (14.0-18.0); Lymphocyte % 41.1 %; Mean Corpuscular HGB Conc 35 g/dL (31-36); Mean Corpuscular Hemoglobin 29 pg (27-31); Mean Corpuscular Volume 83 fL (80-94); Mean Platelet Volume 5.9 fL (7.4-10.4); Nucleated Red Blood Cells % 0.1; Platelet Count 221 10^3/uL (150-450); Red Blood Count 3.31 10^6 /uL (4.18-5.48); Red Cell Distribution Width 16 % (10-15); White Blood Count 7.7 10^3/uL (3.5-10.8)
[2019-07-14 06:47] LABS: BUN/Creatinine Ratio 8.2 (8-20); EGFR African American 125.4 (>60); EGFR Non-African American 103.6 (>60); Magnesium 1.8 mg/dL (1.9-2.7); Potassium 3.3 mmol/L (3.5-5.0)
[2019-07-14] MEDS: Sodium Chloride TAB* 1 GM PO SCH (09:27)
[2019-07-14] MEDS: CMCS: Sildenafil (PULMONARY)(NF) 20 MG TAB PO SCH (09:27)
[2019-07-14] MEDS: Potassium Chlor TAB* 20 MEQ TAB.ER PO SCH ×3 (09:28→13:53)
[2019-07-14] MEDS: Sodium Bicarbonate (ANTACID)* 650 MG TAB PO SCH ×2 (09:28→13:53)
[2019-07-14] MEDS: Vancomycin CAP* 125 MG CAP PO SCH ×3 (09:29→17:22)
[2019-07-14] MEDS: levETIRAcetam TAB* 500 MG PO SCH (09:29)
[2019-07-14] MEDS: Clopidogrel TAB* 75 MG PO SCH (09:29)
[2019-07-14] MEDS: Finasteride TAB* 5 MG PO SCH (09:29)
[2019-07-14] MEDS: Atorvastatin* 40 MG TAB PO SCH (09:30)
[2019-07-14] MEDS: Pantoprazole TAB * 40 MG TAB PO SCH (09:30)
[2019-07-14] MEDS: predniSONE TAB* 10 MG PO SCH (09:31)
[2019-07-14] MEDS: Fludrocortisone Acetate TAB* 0.1 MG PO SCH (09:31)
--- NOTE | 2019-07-14 10:18 | PN ---
Progress Note - Progress Note Date of Service: 07/14/19 Note: Time spent on discharge including exam of patient, discussion with pt, , nurse, CM, retail pharmacist, review of EMR and preparation of discharge documents is 45 minutes.
[2019-07-14 16:30] VITALS: BP 111/59
--- NOTE | 2019-07-25 22:51 | DS ---
CC: Dr. May Castillo * DISCHARGE SUMMARY: DATE OF ADMISSION: 07/13/19 DATE OF DISCHARGE: 07/14/19 HISTORY: This 78-year-old man was admitted with weakness and diarrhea. The diarrhea began about 3 days before. He had multiple watery stools. He was eating very little. He did not take any medications or eat anything on the day of admission. He was eating little. The history and physical exam are detailed in the dictated admission note. Recently, he was diagnosed as having a T-cell lymphoma and is being monitored for that and no chemotherapy has been recommended at this time. Stool was tested for Clostridium difficile and was positive. He was treated with oral vancomycin. He did well in the hospital and was eating adequately. He was somewhat hypokalemic. He was given extra potassium. His last potassium level in the hospital was 3.3 on 07/14/19. The lowest value was 2.7 on . BUN was 6 and creatinine 0.3 on 07/14/19. Urine culture showed Enterococcus faecium, but he was not having any urine symptoms. There were only a few colonies and this most likely does not represent a true infection. This is the repeat urine sample. The original urine sample on 07/11/19 did show greater than 100,000, but again the patient really was not having much in the way of urinary symptoms. In view of his positive diagnosis of C. difficile, it was felt best not to give him another antibiotic. FINAL DIAGNOSES: 1. Clostridium difficile colitis. 2. Hypokalemia and hypomagnesemia. 3. T-cell lymphoma. MEDICATIONS ON DISCHARGE: 1. Potassium chloride 20 mEq daily. 2. Vancomycin 125 mg q.i.d. 3. Finasteride 5 mg daily. 4. Travoprost Z 0.004% 1 drop both eyes at bedtime. 5. Calcium carbonate. 6. Vitamin D3 one tablet daily. 7. Acetaminophen 650 mg every 6 hours p.r.n. 8. Albuterol inhaler 2 puffs every 4 hours p.r.n. 9. Oxycodone/acetaminophen 5/325 one to two tablets every 6 hours p.r.n. 10. Prednisone 10 mg daily. 11. Gabapentin 600 mg t.i.d. 12. Multivitamin 1 daily. 13. Clopidogrel 1 tablet daily. 14. Florinef 1 tablet daily. 15. Omeprazole 1 tablet daily. 16. Sodium chloride 2 tablets b.i.d. 17. Magnesium oxide 1 tablet b.i.d. 18. Atorvastatin 1 tablet daily. 19. Sildenafil 0.5 mg daily. 20. Levetiracetam 500 mg b.i.d. Cefdinir should be stopped. CONDITION ON DISCHARGE: Improved. DISPOSITION ON DISCHARGE: Discharged home. [id number]/[facility] #: [id number] MTDD
== END 2019-07-14 17:25 | disposition home or self-care (01) | DRG 372 ==
LOC: MED 11:47 → OBSVTOIN 07-13 11:47
PROVIDERS: ADMIT Internal Medicine Geriatric Medicine; ATTEND Internal Medicine
DX: A04.72 Enterocolitis due to Clostridium difficile, not specified as recurrent (principal); E27.49 Other adrenocortical insufficiency; E87.2 Acidosis; C85.90 Non-Hodgkin lymphoma, unspecified, unspecified site; N39.0 Urinary tract infection, site not specified; B37.49 Other urogenital candidiasis; I73.9 Peripheral vascular disease, unspecified; D63.1 Anemia in chronic kidney disease; N40.0 Benign prostatic hyperplasia without lower urinary tract symptoms; M81.0 Age-related osteoporosis without current pathological fracture; G40.909 Epilepsy, unspecified, not intractable, without status epilepticus; M19.90 Unspecified osteoarthritis, unspecified site; M35.3 Polymyalgia rheumatica; E87.6 Hypokalemia; Z66 Do not resuscitate; E83.42 Hypomagnesemia; B95.2 Enterococcus as the cause of diseases classified elsewhere; Z89.511 Acquired absence of right leg below knee; Z98.41 Cataract extraction status, right eye; Z98.42 Cataract extraction status, left eye; Z88.2 Allergy status to sulfonamides; Z88.1 Allergy status to other antibiotic agents; Z88.8 Allergy status to other drugs, medicaments and biological substances
CPT/HCPCS: 36415; 80048; 80053; 81003; 81015; 82272; 82728; 83630; 83735; 84100; 85025; 85045; 86140; 87077; 87086; 87106; 87186; 87493; 96365; 96366; 96367; A9270-GY; G0378; G8978-GP-CJ; G8979-GP-CI; J3475; J3480; J7512

== ENCOUNTER 2019-08-18 10:42 | Inpatient (IN) | payer MEDICARE ==
--- NOTE | 2019-08-18 10:57 | ED ---
Syncope/Near Syncope - HPI Summary HPI Summary: Patient is an 79 y/o M presenting to the ED via EMS for a chief complaint of an episode of syncope on 08/18/19. Patient describes that he was sitting on the toilet will difficulty wiping himself due to generalized weakness and called his to help clean himself. He stood up after being cleaned by his and had a syncopal episode. Patient does not recall how long the syncopal episode lasted, but states the episode was witnessed by his . Patient continues to complain of generalized weakness. Patient denies headache, dizziness, palpitations, chest pain, or shortness of breath. 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 At that time, patient needed to see a specialist in [place] for the vascular problem. He reports a similar vascular problem is now occurring in two toes of his left foot. Patient most recently saw Dr. Monahan, an orthopedic surgeon, in [place] on 08/17/19 for a follow up. Patient denies a PMHx of diabetes mellitus or tobacco use. - History Of Current Complaint Hx Obtained From: Patient, EMS Onset/Duration: Sudden Onset, Resolved Timing: Minutes Context: Witnessed, Loss Of Consciousness Activity At Onset: At Rest Associated Head Trauma: No Aggravating Factor(s): Nothing Alleviating Factor(s): Spontaneous Resolution Associated Signs And Symptoms: Weakness - Generalized, Other - Negative headache , dizziness, palpitations, chest pain, or shortness of breath; positive below the knee prosthetic right leg - Allergies/Home Medications Allergies/Adverse Reactions: Allergies Allergy/AdvReac Type Severity Reaction Status Date / Time alendronate sodium Allergy Unknown Verified 06/02/19 08:14 Reaction Details azathioprine Allergy Unknown Verified 06/02/19 08:14 Reaction Details benazepril [From Lotensin] Allergy Unknown Verified 06/02/19 08:14 Reaction Details celecoxib Allergy Hives Verified 06/02/19 08:14 cilostazol Allergy Unknown Verified 06/02/19 08:14 Reaction Details clindamycin Allergy Unknown Verified 06/02/19 08:14 Reaction Details glucosamine Allergy Unknown Verified 06/02/19 08:14 Reaction Details hydrochlorothiazide Allergy Unknown Verified 06/02/19 08:14 [From Dyazide] Reaction Details hydroxychloroquine Allergy See Comment Verified 06/02/19 08:14 methotrexate Allergy See Comment Verified 06/02/19 08:14 morphine Allergy See Comment Verified 06/02/19 08:14 Sulfa (Sulfonamide Allergy See Comment Verified 06/02/19 08:15 Antibiotics) triamterene [From Dyazide] Allergy Unknown Verified 06/02/19 08:14 Reaction Details Home Medications: Home Medications DOXYcycline CAP(*) [DOXYcycline 100MG CAP(*)] 100 mg PO BID 08/18/19 [History Confirmed 08/18/19] Oxycodone HCl 5 mg PO Q4H PRN 08/18/19 [History Confirmed 08/18/19] Potassium Chlor TAB* [Potassium Chlor TAB 20 MEQ*] 10 meq PO DAILY 08/18/19 [ History Confirmed 08/18/19] Potassium Chlor TAB* [Potassium Chlor TAB 20 MEQ*] 20 meq PO DAILY 08/18/19 [ History Confirmed 08/18/19] predniSONE TAB* [Deltasone 10 MG TAB*] 5 mg PO DAILY 08/18/19 [History Confirmed 08/18/19] PMH/Surg Hx/FS Hx/Imm Hx Previously Healthy: Yes Endocrine/Hematology History: Denies: Hx Diabetes, Hx Anemia Cardiovascular History: Reports: Hx Hypotension - orthostatic, Hx Hypertension, Hx Peripheral Vascular Disease - 09/13: now on [place] Denies: Hx Angina, Hx Coronary Artery Disease, Hx Hypercholesterolemia, Hx Myocardial Infarction, Hx Pacemaker/ICD, Hx Valvular Heart Disease, Other Cardiovascular Problems/Disorders Respiratory History: Reports: Hx Seasonal Allergies, Other Respiratory Problems/ Disorders - IS BEING TREATED FOR SYSTEMIC FUNGAL INFECTION Denies: Hx Asthma, Hx Chronic Obstructive Pulmonary Disease (COPD) GI History: Reports: Hx Hiatal Hernia Denies: Hx Jaundice History: Reports: Hx Benign Prostatic Hyperplasia Denies: Hx Renal Disease - left kidney damage in 1960s Musculoskeletal History: Reports: Hx Arthritis - polymyalgia rheumatica, Hx Rheumatoid Arthritis, Hx Back Problems, Hx Osteoporosis Sensory History: Reports: Hx Cataracts, Hx Contacts or Glasses, Hx Glaucoma Denies: Hx Legally Blind, Hx Deafness, Hx Hearing Aid Opthamlomology History: Reports: Hx Cataracts, Hx Contacts or Glasses, Hx Glaucoma Denies: Hx Legally Blind EENT History: Denies: Hx Deafness Neurological History: Reports: Hx Seizures, Other Neuro Impairments/Disorders - syncope Denies: Hx Headaches Psychiatric History: Denies: Hx Panic Disorder - Surgical History Surgical History: Yes Surgery Procedure, Year, and Place: rotator cuff repair bilat; varicele 20YRS + ; CATARACTS BILAT. Torn ligament in left elbow- over 20yrs ago. Right BKA. tonsilectomy Hx Anesthesia Reactions: No Infectious Disease History: Denies: Hx Clostridium Difficile, Hx Hepatitis, Hx Human Immunodeficiency Virus (HIV), Hx of Known/Suspected MRSA, Hx Shingles, Hx Tuberculosis, Hx Known/ Suspected VRE, Hx Known/Suspected VRSA, History Other Infectious Disease - Family History Known Family History: Positive: Cardiac Disease Negative: Diabetes - Social History Occupation: Retired Lives: With Family Alcohol Use: Occasionally Alcohol Amount: 1-2 day,now has cut back. Hx Substance Use: No Substance Use Type: Reports: None Hx Tobacco Use: Yes Smoking Status (MU): Former Smoker Type: Cigarettes Amount Used/How Often: 1-2 packs in week Have You Smoked in the Last Year: No Review of Systems Negative: Palpitations, Chest Pain Negative: Shortness Of Breath Positive: Other - Positive below the knee prosthetic right leg Neurological: Other - Negative dizziness Positive: Weakness - Generalized, Syncope - Resolved. Negative: Headache All Other Systems Reviewed And Are Negative: Yes Physical Exam - Summary Physical Exam Summary: VITAL SIGNS: Reviewed. GENERAL: Patient is a well-developed and thin elderly MALE who is lying comfortable in the stretcher. Patient is not in any acute respiratory distress and in no acute distress. HEAD AND FACE: No signs of trauma. No ecchymosis, hematomas or skull depressions. No sinus tenderness. EYES: PERRLA, EOMI x 2, No injected conjunctiva, no nystagmus. EARS: Hearing grossly intact. Ear canals and tympanic membranes are within normal limits. MOUTH: Oropharynx within normal limits. NECK: Supple, trachea is midline, no adenopathy, no JVD, no carotid bruit, no c- spine tenderness, neck with full ROM. CHEST: Symmetric, no tenderness at palpation. LUNGS: Clear to auscultation bilaterally. No wheezing or crackles. CVS: Regular rate and rhythm, S1 and S2 present, no murmurs or gallops appreciated. ABDOMEN: Soft, non-tender. No signs of distention. No rebound, no guarding, and no masses palpated. Bowel sounds are normal. EXTREMITIES: FROM in all major joints, no edema, no cyanosis or clubbing. Right below the knee amputation. Left 2nd and 4th toes are bandaged secondary to necrotic toes. NEURO: Alert and oriented x 3. No acute neurological deficits. Speech is normal and follows commands. SKIN: Dry and warm. Triage Information Reviewed: Yes Vital Signs Reviewed: Yes - [place] Coma Scale Best Eye Response: 4 - Spontaneous Best Motor Response: 6 - Obeys Commands Best Verbal Response: 5 - Oriented Coma Scale Total: 15 Procedures - Sedation Patient Received Moderate/Deep Sedation with Procedure: No Diagnostics - Laboratory Result Diagrams: 08/18/19 11:14 08/18/19 11:14 Lab Statement: Any lab studies that have been ordered have been reviewed, and results considered in the medical decision making process. - Radiology Chest X-ray Radiology Interpretation Completed By: Radiologist Summary of Radiographic Findings: Chest X-ray IMPRESSION: 1. NO ACUTE CARDIOPULMONARY PROCESS. 2. RIGHT APICAL CALCIFIED PLEURAL PLAQUE. Reviewed by Dr. Segal. - CT Brain CT CT Interpretation Completed By: Radiologist Summary of CT Findings: Brain CT IMPRESSION: 1. No acute intracranial abnormality. 2. Moderate chronic small vessel ischemic disease is likely. 3. Mild cerebral volume loss. Reviewed by Dr. Segal. - EKG 11:02 Cardiac Rate: Bradycardia - 50 BPM EKG Rhythm: Sinus Bradycardia ST Segment: Normal Ectopy: None EKG Comparison: No Significant Change Summary of EKG Findings: EKG at 11:02 shows 50 BPM with sinus bradycardia, no STEMI, and RBBB similar to a previous EKG on 06/02/19. Reviewed and interpreted by Dr. Segal. Course/Dx Assessment/Plan: This patient is an 79-year-old male who presents to the emergency department via ambulance with a chief complaint of a syncopal episode. He reports that he was sitting on the toilet having a bowel movement and he became very weak unable to clean himself. He called his who cleaned the patient and the patient had a syncopal episode. Positive loss of consciousness. Patient has a past medical history significant for c. diff, hypomagnesemia, hypokalemia, metabolic acidosis, T-cell lymphoma, malnutrition, altered mental status, constipation due to opiate therapy, polymyalgia rheumatica, lumbar radiculopathy, seizure disorders, psoriasis, peripheral arterial disease, and ischemic pain of the right foot. Blood work was without any significant abnormality except for slight anemia, sodium 132, glucose 196, lactic acid is 2.8, magnesium 1.2, BNP is more than 1300. Chest x-ray impression: No acute cardiopulmonary process. Right apical calcified pleural placed. Head CT impression: No acute intracranial abnormality. Moderate chronic small vessel ischemic disease. Mild sedative volume loss. In the ED course, I held diuretics since the patients blood pressure is only 119/ 68. Patient was given magnesium for the hypomagnesemia. I discuss my physical exam and test results with Dr. Deleon from the hospitalist services and he agrees to admit patient to his services. Patient is hemodynamically stable alert and oriented x 3. - Diagnoses Provider Diagnoses: CHF exacerbation, Hypermagnesemia, Syncope - Physician Notifications Discussed Care of Patient With: Fox Deleon - At 13:54, Dr. Fox Deleon agrees to admit the patient with a diagnosis of syncope, CHF exacerbation, and hypomagnesemia Time Discussed With Above Provider: 13:54 Instructed by Provider To: Admit As Inpatient Discharge ED - Sign-Out/Discharge Documenting (check all that apply): Patient Departure - Admit - Discharge Plan Condition: Stable Disposition: ADMITTED TO [facility] - Billing Disposition and Condition Condition: STABLE Disposition: Admitted to [facility] - Attestation Statements Document Initiated by Ana Lilia: Yes Documenting Scribe: Daina Ragsdale Provider For Whom Ana Lilia is Documenting (Include Credential): Damaso Segal MD Scribe Attestation: Daina Keller, scribed for Damaso Segal MD on 08/18/19 at 1801. Scribe Documentation Reviewed: Yes Provider Attestation: The documentation as recorded by the Daina layne accurately reflects the service I personally performed and the decisions made by me, Damaso Segal MD Status of Scribe Document: Viewed
[2019-08-18 11:33] LABS: ABS Lymphocytes 0.5 10^3/ul (1.0-4.8); ABS Monocytes 0.6 10^3/ul (0-0.8); ABS Neutrophils 6.2 10^3/ul (1.5-7.7); Eosinophil % 0.4 %; Hematocrit 33 % (42-52); Hemoglobin 11.2 g/dL (14.0-18.0); Lymphocyte % 6.3 %; Mean Corpuscular HGB Conc 34 g/dL (31-36); Mean Corpuscular Hemoglobin 29 pg (27-31); Mean Corpuscular Volume 84 fL (80-94); Mean Platelet Volume 6.1 fL (7.4-10.4); Platelet Count 180 10^3/uL (150-450); Red Blood Count 3.94 10^6 /uL (4.18-5.48); Red Cell Distribution Width 15 % (10-15); White Blood Count 7.3 10^3/uL (3.5-10.8)
[2019-08-18 11:41] LABS: Troponin I 0.01 ng/mL (<0.04)
--- OUTSIDE RECORDS SUMMARY | 2019-08-18 11:44 | XMS REPORT ---
:1940 Author Organization [facility] Care Team Providers Name Role Phone Unavailable Unavailable Unavailable Problems Condition Condition Condition Status Onset Resolution Last Treating Comments Name Details Category Date Date Treatment Clinician Date Pain frequent Pain Mgmt Resolve 2018-102019-07-18 Grace pain d 0-01 13:00:00 (Pennie) 10:30: [id number] Cardio edema Cardiovasc Resolve 2018-102019-07-24 Grace ular d 0-01 09:00:00 (Pennie) 10:30: Mondragon [id number] Respiratory dyspnea Respirator Resolve 2018-102019-07-24 Grace present y d 0-01 09:00:00 (Pennie) 10:30: [id number] Endo/David anti-coagul Endo/David Resolve 2018-102019-07-18 Grace ation d 0-01 13:00:00 (Pennie) therapy 10:30: [id number] Integument skin Integument Resolve 2018-102019-07-24 Grace integrity d 0-01 09:00:00 (Pennie) risk 10:30: [id number] Elimination urinary Eliminatio Resolve 2018-102019-07-24 Grace incontinenc n d 0-01 09:00:00 (Pennie) e 10:30: [id number] Neuro confusion Neuro/Emot Active 2018-10 Grace present ion 0-01 (Pennie) 10:30: Mondragon [id number] Neuro depressive Neuro/Emot Active 2018-10 Grace feelings ion 0-01 (Pennie) present 10:30: Mondragon [id number] Neuro impaired Neuro/Emot Active 2018-10 Grace decision-ma ion 0-01 (Pennie) guanako 10:30: [id number] Neuro memory Neuro/Emot Active 2018-10 Grace deficit ion 0-01 (Pennie) needing 10:30: Mondragon supervision 00 [id number] Activity ADL Activity Resolve 2018-102019-07-24 Grace assistance d 0-01 09:00:00 (Pennie) required 10:30: Mondragon [id number] Activity self-care Activity Resolve 2018-102019-07-24 Grace deficit d 0-01 09:00:00 (Pennie) 10:30: Mondragon [id number] Safety fall risk Safety Active 2018-10 Grace factor 0-01 (Pennie) present 10:30: Mondragon [id number] Safety cannot be Safety Active 2018-10 Grace left alone 0-01 (Pennie) 10:30: Mondragon [id number] Safety risk for Safety Active 2018-10 Grace hospitaliza 0-01 (Pennie) tion 10:30: Mondragon [id number] Medication oral med Meds Resolve 2018-102019-07-18 Grace assistance d 0-01 13:00:00 (Pennie) required 10:30: Mondragon [id number] Musculoskel transfer Musculoske Resolve 2018-102019-07-24 Grace etal assistance letal d 0-01 09:00:00 (Pennie) required 10:30: Mondragon [id number] Musculoskel requires Musculoske Resolve 2018-102019-07-24 Grace etal human letal d 0-01 09:00:00 (Pennie) assist to 10:30: Mondragon leave home 00 [id number] Nutrition nutritional Nutrition Resolve 2018-102019-07-18 Bimal restriction d 0-02 13:00:00 Anguish s 13:46: [id number] Safety structural Safety Resolve 2018-102019-07-24 Bimal barriers d 0-02 09:00:00 Anguish present 13:46: [id number] 00 Safety can be left Safety Active 2018-10 Bimal alone for 0-02 Anguish only short 13:46: [id number] periods 00 Balance/End balance/authorization coordinator PT/OT: Active 2018-10 Bimal urance rdination Balance/En 0-02 Anguish deficit durance 13:46: [id number] Balance/End endurance PT/OT: Active 2018-10 Bimal urance deficit Balance/En 0-02 Anguish durance 13:46: [id number] 00 Equipment prosthesis PT/OT: Active 2018-10 Bimal Mgmt mgmt Equipment 0-02 Anguish deficit Mgmt 13:46: [id number] Gait/Locomo gait PT/OT: Active 2018-10 Bimal tion deficit Gait/Locom 0-02 Anguish problems otion 13:46: [id number] 00 Elimination bowel Eliminatio Resolve 2018-102019-07-24 Adry incontinenc n d 0-15 09:00:00 Ingrahm e 10:00: [id number] 00 Gait/Locomo gait PT/OT: Active 2018-10 Bimal tion assistive Gait/Locom 0-18 Anguish problems device otion 10:20: [id number] present 00 Nutrition nutritional Nutrition Resolve 2018-102019-07-24 Adry restriction d 0-22 09:00:00 Ingrahm s 10:00: [id number] 00 Nutrition nutritional Nutrition Active 2018-10 Adry restriction 0-29 Ingrahm s 08:46: [id number] 00 Allergies, Adverse Reactions, Alerts Allergy Name Allergy Status Severity Reaction(s) Onset Inactive Treating Comments Type Date Date Clinician Celebrex Medication Active Unknown Reaction Liliya Beam Name ID Unknown 5-31 Lotensin Medication Active Unknown Reaction Liliya Beam Name ID Unknown 5-31 Fosamax Medication Active Unknown Reaction Liliya Beam Name ID Unknown 5-31 Dyazide Medication Active Unknown Reaction Liliya Beam Name ID Unknown 5-31 morphine Base Active Unknown Reaction Liliya Beam Ingredient Unknown 5-31 methotrexate Base Active Unknown Reaction Liliya Beam Ingredient Unknown 5-31 benazepril Base Active Unknown Reaction Liliya Beam Ingredient Unknown 5-31 clindamycin Base Active Unknown Reaction Liliya Beam Ingredient Unknown 5-31 hydrochlorot Base Active Unknown Reaction Liliya Beam hiazide Ingredient Unknown 5-31 azathioprine Base Active Unknown Reaction Liliya Beam Ingredient Unknown 5-31 Medications Ordered Filled Start Stop Current Ordering Indication Dosage Frequency Signature Comments Components Medication Medication Date Date Medication? Clinician (SIG) Name Name clopidogrel clopidogrel 2018-10 Yes Castillo Unknown Unknown 75 mg 75 mg 0-01 MD,May tablet tablet levETIRAcet levETIRAcet 2018-10 Yes Castillo Unknown Unknown am 500 mg am 500 mg 0-01 MD,May tablet tablet demeclocycl demeclocycl No Castillo Unknown Unknown ine 150 mg ine 150 mg MD,May tablet tablet predniSONE predniSONE 2018-10 Yes Castillo Unknown Unknown 5 mg tablet 5 mg tablet 0-01 MD,May gabapentin gabapentin 2018-10 Yes Castillo Unknown Unknown 600 mg 600 mg 0-01 MD,May tablet tablet latanoprost latanoprost No Castillo Unknown Unknown (PF) 0.005 (PF) 0.005 MD,May % eye drops % eye drops oxyCODONE 5 oxyCODONE 5 No Castillo Unknown Unknown mg tablet mg tablet MD,May albuterol albuterol No Castillo Unknown Unknown sulfate 2.5 sulfate 2.5 MD,May mg/3 mL mg/3 mL (0.083 %) (0.083 %) solution solution for for nebulizatio nebulizatio n n sodium sodium 2018-10 Yes Castillo Unknown Unknown chloride 1 chloride 1 0-01 MD,May gram tablet gram tablet acetaminoph acetaminoph No Castillo Unknown Unknown en 325 mg en 325 mg MD,May capsule capsule sildenafil sildenafil No Castillo Unknown Unknown (antihypert (antihypert MD,May ensive) 20 ensive) 20 mg tablet mg tablet fludrocorti fludrocorti 2018-10 Yes Castillo Unknown Unknown sone 0.1 mg sone 0.1 mg 0-01 MD,May tablet tablet atorvastati atorvastati No Castillo Unknown Unknown n 40 mg n 40 mg MD,May tablet tablet Calcium 600 Calcium 600 No Castillo Unknown Unknown + D(3) 600 + D(3) 600 MD,May mg mg calcium-200 calcium-200 unit unit capsule capsule Centrum Centrum No Castillo Unknown Unknown Silver Men Silver Men ,May 300 mcg-600 300 mcg-600 mcg-300 mcg mcg-300 mcg tablet tablet finasteride finasteride 2018-10 Yes Castillo Unknown Unknown 5 mg tablet 5 mg tablet 0-01 MD,May furosemide furosemide No Csatillo Unknown Unknown 20 mg 20 mg MD,May tablet tablet risedronate risedronate No Castillo Unknown Unknown 35 mg 35 mg MD,May tablet tablet tamsulosin tamsulosin No Castillo Unknown Unknown 0.4 mg 0.4 mg MD,May capsule capsule sildenafil sildenafil 2018-10 Yes Castillo Unknown Unknown (antihypert (antihypert 0-01 MD,May ensive) 20 ensive) 20 mg tablet mg tablet magnesium magnesium 2019-1 2019- Yes Castillo Unknown Unknown 250 mg (as 250 mg (as 0-01 10-15 MD,May magnesium magnesium oxide) oxide) tablet tablet potassium potassium 2018-10 Yes Castillo Unknown Unknown chloride ER chloride ER 0-15 MD,May 20 mEq 20 mEq tablet,exte tablet,exte nded nded release(par release(par t/cryst) t/cryst) vancomycin vancomycin 2018-10 Yes Castillo Unknown Unknown 125 mg 125 mg 0-15 MD,May capsule capsule Vital Signs Vital Name Observation Time Observation Value Comments SYSTOLIC mm[Hg] 2019-07-06 18:08:12 130 mm[Hg] mm[Hg] Method: Stand DIASTOLIC mm[Hg] 2019-07-06 18:08:12 90 mm[Hg] mm[Hg] Method: Stand RESP RATE 2019-08-10 18:08:47 16 /min /min TEMP 2019-08-10 18:08:47 98.1 [degF] Procedures This patient has no known procedures. Results This patient has no known results.
--- OUTSIDE RECORDS SUMMARY | 2019-08-18 11:44 | XMS REPORT ---
:1940 Author Organization [facility] Care Team Providers Name Role Phone Unavailable Unavailable Unavailable Problems Condition Condition Condition Status Onset Resolution Last Treating Comments Name Details Category Date Date Treatment Clinician Date Pain frequent Pain Mgmt Resolve 2018-102019-07-18 Grace pain d 0-01 13:00:00 (Pennie) 10:30: [id number] Cardio edema Cardiovasc Resolve 2018-102019-07-24 Grace ular d 0-01 09:00:00 (Pennie) 10:30: Mondragon [id number] Respiratory dyspnea Respirator Resolve 2018-102019-07-24 Grace present y d 0-01 09:00:00 (Pennie) 10:30: [id number] Endo/David anti-coagul Endo/David Resolve 2018-102019-07-18 Grace ation d 0-01 13:00:00 (Pennie) therapy 10:30: [id number] Integument skin Integument Resolve 2018-102019-07-24 Grace integrity d 0-01 09:00:00 (Pennie) risk 10:30: [id number] Elimination urinary Eliminatio Resolve 2018-102019-07-24 Grace incontinenc n d 0-01 09:00:00 (Pennie) e 10:30: [id number] Neuro confusion Neuro/Emot Active 2018-10 Grace present ion 0-01 (Pennie) 10:30: Mondragon [id number] Neuro depressive Neuro/Emot Active 2018-10 Grace feelings ion 0-01 (Pennie) present 10:30: Mondragon [id number] Neuro impaired Neuro/Emot Active 2018-10 Grace decision-ma ion 0-01 (Pennie) guanako 10:30: [id number] Neuro memory Neuro/Emot Active 2018-10 Grace deficit ion 0-01 (Pennie) needing 10:30: Mondragon supervision 00 [id number] Activity ADL Activity Resolve 2018-102019-07-24 Grace assistance d 0-01 09:00:00 (Pennie) required 10:30: Mondragon [id number] Activity self-care Activity Resolve 2018-102019-07-24 Grace deficit d 0-01 09:00:00 (Pennie) 10:30: Mondragon [id number] Safety fall risk Safety Active 2018-10 Grace factor 0-01 (Pennie) present 10:30: Mondragon [id number] Safety cannot be Safety Active 2018-10 Grace left alone 0-01 (Pennie) 10:30: Mondragon [id number] Safety risk for Safety Active 2018-10 Grace hospitaliza 0-01 (Pennie) tion 10:30: Mondragon [id number] Medication oral med Meds Resolve 2018-102019-07-18 Grace assistance d 0-01 13:00:00 (Pennie) required 10:30: Mondragon [id number] Musculoskel transfer Musculoske Resolve 2018-102019-07-24 Grace etal assistance letal d 0-01 09:00:00 (Pennie) required 10:30: Mondragon [id number] Musculoskel requires Musculoske Resolve 2018-102019-07-24 Grace etal human letal d 0-01 09:00:00 (Pennie) assist to 10:30: Mondragon leave home 00 [id number] Nutrition nutritional Nutrition Resolve 2018-102019-07-18 Bimal restriction d 0-02 13:00:00 Anguish s 13:46: [id number] 00 Safety structural Safety Resolve 2018-102019-07-24 Bimal barriers d 0-02 09:00:00 Anguish present 13:46: [id number] Safety can be left Safety Active 2018-10 Bimal alone for 0-02 Anguish only short 13:46: [id number] periods 00 Balance/End balance/early childhood services coordinator PT/OT: Active 2018-10 Bimal urance rdination Balance/En 0-02 Anguish deficit durance 13:46: [id number] Balance/End endurance PT/OT: Active 2018-10 Bimal urance deficit Balance/En 0-02 Anguish durance 13:46: [id number] Equipment prosthesis PT/OT: Active 2018-10 Bimal Mgmt mgmt Equipment 0-02 Anguish deficit Mgmt 13:46: [id number] Gait/Locomo gait PT/OT: Active 2018-10 Bimal tion deficit Gait/Locom 0-02 Anguish problems otion 13:46: [id number] Elimination bowel Eliminatio Resolve 2018-102019-07-24 Adry incontinenc n d 0-15 09:00:00 Ingrahm e 10:00: [id number] 00 Gait/Locomo gait PT/OT: Active 2018-10 Bimal tion assistive Gait/Locom 0-18 Anguish problems device otion 10:20: [id number] present 00 Nutrition nutritional Nutrition Resolve 2018-102019-07-24 Adry restriction d 0-22 09:00:00 Ingrahm s 10:00: [id number] 00 Nutrition nutritional Nutrition Active 2018-10 Adry restriction 0-29 Ingrahm s 08:46: [id number] 00 Allergies, Adverse Reactions, Alerts Allergy Name [...] mg tablet 0-01 MD,May furosemide furosemide No Castillo Unknown Unknown 20 mg 20 mg MD,May [...]
--- OUTSIDE RECORDS SUMMARY | 2019-08-18 11:44 | XMS REPORT ---
:1939 Author Organization [facility] Care Team Providers Name Role Phone Unavailable Unavailable Unavailable Problems Condition Condition Condition Status Onset Resolution Last Treating Comments Name Details Category Date Date Treatment Clinician Date Pain frequent Pain Mgmt Resolve 2018-102019-07-18 Grace pain d 0-01 13:00:00 (Pennie) 10:30: [id number] Cardio edema Cardiovasc Resolve 2018-102019-07-24 Grace ular d 0-01 09:00:00 (Pennie) 10:30: Mondragon [id number] Respiratory dyspnea Respirator Resolve 2018-102019-07-24 Grace present y d 0-01 09:00:00 (Pennie) 10:30: [id number] Endo/David anti-coagul Endo/David Resolve 2018-102019-07-18 Grace ation d 0-01 13:00:00 (Pennie) therapy 10:30: [id number] Integument skin Integument Resolve 2018-102019-07-24 Grace integrity d 0-01 09:00:00 (Pennie) risk 10:30: [id number] Elimination urinary Eliminatio Resolve 2018-102019-07-24 Grace incontinenc n d 0-01 09:00:00 (Pennie) e 10:30: [id number] Neuro confusion Neuro/Emot Active 2018-10 Grace present ion 0-01 (Pennie) 10:30: Mondragon [id number] Neuro depressive Neuro/Emot Active 2018-10 Grace feelings ion 0-01 (Pennie) present 10:30: Mondragon [id number] Neuro impaired Neuro/Emot Active 2018-10 Grace decision-ma ion 0-01 (Pennie) guanako 10:30: [id number] Neuro memory Neuro/Emot Active 2018-10 Grace deficit ion 0-01 (Pennie) needing 10:30: Mondragon supervision 00 [id number] Activity ADL Activity Resolve 2018-102019-07-24 Grace assistance d 0-01 09:00:00 (Pennie) required 10:30: Mondragon [id number] Activity self-care Activity Resolve 2018-102019-07-24 Grace deficit d 0-01 09:00:00 (Pennie) 10:30: Mondragon [id number] Safety fall risk Safety Active 2018-10 Grace factor 0-01 (Pennie) present 10:30: Mondragon [id number] Safety cannot be Safety Active 2018-10 Grace left alone 0-01 (Pennie) 10:30: Mondragon [id number] Safety risk for Safety Active 2018-10 Grace hospitaliza 0-01 (Pennie) tion 10:30: Mondragon [id number] Medication oral med Meds Resolve 2018-102019-07-18 Grace assistance d 0-01 13:00:00 (Pennie) required 10:30: Mondragon [id number] Musculoskel transfer Musculoske Resolve 2018-102019-07-24 Grace etal assistance letal d 0-01 09:00:00 (Pennie) required 10:30: Mondragon [id number] Musculoskel requires Musculoske Resolve 2018-102019-07-24 Grace etal human letal d 0-01 09:00:00 (Pennie) assist to 10:30: Mondragon leave home 00 [id number] Nutrition nutritional Nutrition Resolve 2018-102019-07-18 Bimal restriction d 0-02 13:00:00 Anguish s 13:46: [id number] 00 Safety structural Safety Resolve 2018-102019-07-24 Bimal barriers d 0-02 09:00:00 Anguish present 13:46: [id number] Safety can be left Safety Active 2018-10 Bimal alone for 0-02 Anguish only short 13:46: [id number] periods 00 Balance/End balance/product development coordinator PT/OT: Active 2018-10 Bimal urance rdination Balance/En 0-02 Anguish deficit durance 13:46: [id number] 00 Balance/End endurance PT/OT: Active 2018-10 Bimal urance deficit Balance/En 0-02 Anguish durance 13:46: [id number] 00 Equipment prosthesis PT/OT: Active 2018-10 Bimal Mgmt mgmt Equipment 0-02 Anguish deficit Mgmt 13:46: [id number] 00 Gait/Locomo gait PT/OT: Active 2018-10 Bimal tion deficit Gait/Locom 0-02 Anguish problems otion 13:46: [id number] 00 Elimination bowel Eliminatio Resolve 2018-102019-07-24 Adry incontinenc n d 0-15 09:00:00 Ingrahm e 10:00: [id number] 00 Gait/Locomo gait PT/OT: Active 2018-10 Bimal tion assistive Gait/Locom 0-18 Anguish problems device otion 10:20: [id number] present 00 Nutrition nutritional Nutrition Resolve 2018-102019-07-24 Adry restriction d 0-22 09:00:00 Ingrahm s 10:00: [id number] 00 Nutrition nutritional Nutrition Active 2018-10 Adry restriction 0-29 Ingrahm s 08:46: [id number] 00 Allergies, Adverse Reactions, Alerts Allergy Name [...] RATE 2019-08-10 18:08:47 16 /min /min TEMP 2019-08-14 18:08:51 97.3 [degF] Procedures This patient has no known procedures. Results This patient has no known results.
--- OUTSIDE RECORDS SUMMARY | 2019-08-18 11:44 | XMS REPORT ---
:1939 Author Organization [facility] Care Team Providers Name Role Phone Unavailable Unavailable Unavailable Problems Condition Condition Condition Status Onset Resolution Last Treating Comments Name Details Category Date Date Treatment Clinician Date Pain frequent Pain Mgmt Resolve 2018-102019-07-18 Grace pain d 0-01 13:00:00 (Pennie) 10:30: [id number] Cardio edema Cardiovasc Resolve 2018-102019-07-24 Grace ular d 0-01 09:00:00 (Pennie) 10:30: Mondragon [id number] Respiratory dyspnea Respirator Resolve 2018-102019-07-24 Grace present y d 0-01 09:00:00 (Pennie) 10:30: [id number] Endo/David anti-coagul Endo/David Resolve 2018-102019-07-18 Grace ation d 0-01 13:00:00 (Pennie) therapy 10:30: [id number] Integument skin Integument Resolve 2018-102019-07-24 Grace integrity d 0-01 09:00:00 (Pennie) risk 10:30: [id number] Elimination urinary Eliminatio Resolve 2018-102019-07-24 Grace incontinenc n d 0-01 09:00:00 (Pennie) e 10:30: [id number] Neuro confusion Neuro/Emot Active 2018-10 Grace present ion 0-01 (Pennie) 10:30: Mondragon [id number] Neuro depressive Neuro/Emot Active 2018-10 Grace feelings ion 0-01 (Pennie) present 10:30: Mondragon [id number] Neuro impaired Neuro/Emot Active 2018-10 Grace decision-ma ion 0-01 (Pennie) guanako 10:30: [id number] Neuro memory Neuro/Emot Active 2018-10 Grace deficit ion 0-01 (Pennie) needing 10:30: Mondragon supervision 00 [id number] Activity ADL Activity Resolve 2018-102019-07-24 Grace assistance d 0-01 09:00:00 (Pennie) required 10:30: Mondragon [id number] Activity self-care Activity Resolve 2018-102019-07-24 Grace deficit d 0-01 09:00:00 (Pennie) 10:30: Mondragon [id number] Safety fall risk Safety Active 2018-10 Grace factor 0-01 (Pennie) present 10:30: Mondragon [id number] Safety cannot be Safety Active 2018-10 Grace left alone 0-01 (Pennie) 10:30: Mondragon [id number] Safety risk for Safety Active 2018-10 Grace hospitaliza 0-01 (Pennie) tion 10:30: Mondragon [id number] Medication oral med Meds Resolve 2018-102019-07-18 Grace assistance d 0-01 13:00:00 (Pennie) required 10:30: Mondragon [id number] Musculoskel transfer Musculoske Resolve 2018-102019-07-24 Grace etal assistance letal d 0-01 09:00:00 (Pennie) required 10:30: Mondragon [id number] Musculoskel requires Musculoske Resolve 2018-102019-07-24 Grace etal human letal d 0-01 09:00:00 (Pennie) assist to 10:30: Mondragon leave home 00 [id number] Nutrition nutritional Nutrition Resolve 2018-102019-07-18 Bimal restriction d 0-02 13:00:00 Anguish s 13:46: [id number] 00 Safety structural Safety Resolve 2018-102019-07-24 Bimal barriers d 0-02 09:00:00 Anguish present 13:46: [id number] 00 Safety can be left Safety Active 2018-10 Bimal alone for 0-02 Anguish only short 13:46: [id number] periods 00 Balance/End balance/vocational coordinator PT/OT: Active 2018-10 Ibmal urance rdination Balance/En 0-02 Anguish deficit durance 13:46: [id number] 00 Balance/End endurance PT/OT: Active 2018-10 Bimal urance deficit Balance/En 0-02 Anguish durance 13:46: [id number] 00 Equipment prosthesis PT/OT: Active 2018-10 Bimal Mgmt mgmt Equipment 0-02 Anguish deficit Mgmt 13:46: [id number] 00 Gait/Locomo gait PT/OT: Active 2018-10 Bimal tion deficit Gait/Locom 0-02 Anguish problems otion 13:46: [id number] 00 Elimination bowel Eliminatio Resolve 2018-102019-07-24 Adry incontinenc n d 0-15 09:00:00 Ingrahm e 10:00: [id number] 00 Gait/Locomo gait PT/OT: Active 2018-10 Bimal tion assistive Gait/Locom 0-18 Anguish problems device otion 10:20: [id number] present 00 Nutrition nutritional Nutrition Resolve 2018-102019-07-24 Adry restriction d 0-22 09:00:00 Ingrahm s 10:00: [id number] 00 Nutrition nutritional Nutrition Active 2018-10 Adry restriction 0-29 Ingrahm s 08:46: [id number] 00 Allergies, Adverse Reactions, Alerts Allergy Name [...] mg MD,May tablet tablet tamsulosin tamsulosin No Castilol Unknown Unknown 0.4 mg 0.4 mg MD,May [...]
--- OUTSIDE RECORDS SUMMARY | 2019-08-18 11:44 | XMS REPORT ---
:1939 Author Organization [facility] Care Team Providers Name Role Phone Unavailable Unavailable Unavailable Problems Condition Condition Condition Status Onset Resolution Last Treating Comments Name Details Category Date Date Treatment Clinician Date Pain frequent Pain Mgmt Resolve 2018-102019-07-18 Grace pain d 0-01 13:00:00 (Pennie) 10:30: [id number] Cardio edema Cardiovasc Resolve 2018-102019-07-24 Grace ular d 0-01 09:00:00 (Pennie) 10:30: Mondragon [id number] Respiratory dyspnea Respirator Resolve 2018-102019-07-24 Grace present y d 0-01 09:00:00 (Pennie) 10:30: [id number] Endo/David anti-coagul Endo/David Resolve 2018-102019-07-18 Grace ation d 0-01 13:00:00 (Pennie) therapy 10:30: [id number] Integument skin Integument Resolve 2018-102019-07-24 Grace integrity d 0-01 09:00:00 (Pennie) risk 10:30: [id number] Elimination urinary Eliminatio Resolve 2018-102019-07-24 Grace incontinenc n d 0-01 09:00:00 (Pennie) e 10:30: [id number] Neuro confusion Neuro/Emot Active 2018-10 Grace present ion 0-01 (Pennie) 10:30: Mondragon [id number] Neuro depressive Neuro/Emot Active 2018-10 Grace feelings ion 0-01 (Penine) present 10:30: Mondragon [id number] Neuro impaired Neuro/Emot Active 2018-10 Grace decision-ma ion 0-01 (Pennie) guanako 10:30: [id number] Neuro memory Neuro/Emot Active 2018-10 Grace deficit ion 0-01 (Pennie) needing 10:30: Mondragon supervision 00 [id number] Activity ADL Activity Resolve 2018-102019-07-24 Grace assistance d 0-01 09:00:00 (Pennie) required 10:30: Mondragon [id number] Activity self-care Activity Resolve 2018-102019-07-24 Grace deficit d 0-01 09:00:00 (Pennie) 10:30: Mondragon [id number] Safety fall risk Safety Active 2018-10 Grace factor 0-01 (Pennie) present 10:30: Mondragon [id number] Safety cannot be Safety Active 2018-10 Grace left alone 0-01 (Pennie) 10:30: Mondragon [id number] Safety risk for Safety Active 2018-10 Grace hospitaliza 0-01 (Pennie) tion 10:30: Mondragon [id number] Medication oral med Meds Resolve 2018-102019-07-18 Grace assistance d 0-01 13:00:00 (Pennie) required 10:30: Mondragon [id number] Musculoskel transfer Musculoske Resolve 2018-102019-07-24 Grace etal assistance letal d 0-01 09:00:00 (Pennie) required 10:30: Mondragon [id number] Musculoskel requires Musculoske Resolve 2018-102019-07-24 Grace etal human letal d 0-01 09:00:00 (Pennie) assist to 10:30: Mondragon leave home 00 [id number] Nutrition nutritional Nutrition Resolve 2018-102019-07-18 Bimal restriction d 0-02 13:00:00 Anguish s 13:46: [id number] 00 Safety structural Safety Resolve 2018-102019-07-24 Bimal barriers d 0-02 09:00:00 Anguish present 13:46: [id number] 00 Safety can be left Safety Active 2018-10 Bimal alone for 0-02 Anguish only short 13:46: [id number] periods 00 Balance/End balance/child care education coordinator PT/OT: Active 2018-10 Bimal urance rdination Balance/En 0-02 Anguish deficit durance 13:46: [id number] 00 Balance/End endurance PT/OT: Active 2018-10 Bimal urance deficit Balance/En 0-02 Anguish durance 13:46: [id number] 00 Equipment prosthesis PT/OT: Active 2018-10 Bimal Mgmt mgmt Equipment 0-02 Anguish deficit Mgmt 13:46: [id number] 00 Gait/Locomo gait PT/OT: Active 2018-10 Bimal tion deficit Gait/Locom 0-02 Anguish problems otion 13:46: [id number] 00 Elimination bowel Eliminatio Resolve 2018-102019-07-24 Adry incontinenc n d 0-15 09:00:00 Ingrahm e 10:00: [id number] 00 Gait/Locomo gait PT/OT: Active 2018-10 Bimal tion assistive Gait/Locom 0-18 Anguish problems device otion 10:20: [id number] present 00 Nutrition nutritional Nutrition Resolve 2018-102019-07-24 Adry restriction d 0-22 09:00:00 Ingrahm s 10:00: [id number] 00 Nutrition nutritional Nutrition Active 2018-10 Adry restriction 0-29 Ingrahm s 08:46: [id number] 00 Allergies, Adverse Reactions, Alerts Allergy Name [...]
--- OUTSIDE RECORDS SUMMARY | 2019-08-18 11:44 | XMS REPORT ---
:1939 Author Organization [facility] Care Team Providers Name Role Phone Unavailable Unavailable Unavailable Problems Condition Condition Condition Status Onset Resolution Last Treating Comments Name Details Category Date Date Treatment Clinician Date Pain frequent Pain Mgmt Resolve 2018-102019-07-18 Grace pain d 0-01 13:00:00 (Pennie) 10:30: [id number] Cardio edema Cardiovasc Resolve 2018-102019-07-24 Grace ular d 0-01 09:00:00 (Pennie) 10:30: Mondragon [id number] Respiratory dyspnea Respirator Resolve 2018-102019-07-24 Grace present y d 0-01 09:00:00 (Pennie) 10:30: [id number] Endo/David anti-coagul Endo/David Resolve 2018-102019-07-18 Grace ation d 0-01 13:00:00 (Pennie) therapy 10:30: [id number] Integument skin Integument Resolve 2018-102019-07-24 Grace integrity d 0-01 09:00:00 (Pennie) risk 10:30: [id number] Elimination urinary Eliminatio Resolve 2018-102019-07-24 Grace incontinenc n d 0-01 09:00:00 (Pennie) e 10:30: [id number] Neuro confusion Neuro/Emot Active 2018-10 Grace present ion 0-01 (Pennie) 10:30: Mondragon [id number] Neuro depressive Neuro/Emot Active 2018-10 Grace feelings ion 0-01 (Pennie) present 10:30: Mondragon [id number] Neuro impaired Neuro/Emot Active 2018-10 Grace decision-ma ion 0-01 (Pennie) guanako 10:30: [id number] Neuro memory Neuro/Emot Active 2018-10 Grace deficit ion 0-01 (Pennie) needing 10:30: Mondragon supervision 00 [id number] Activity ADL Activity Resolve 2018-102019-07-24 Grace assistance d 0-01 09:00:00 (Pennie) required 10:30: Mondragon [id number] Activity self-care Activity Resolve 2018-102019-07-24 Grace deficit d 0-01 09:00:00 (Pennie) 10:30: Mondragon [id number] Safety fall risk Safety Active 2018-10 Grace factor 0-01 (Pennie) present 10:30: Mondragon [id number] Safety cannot be Safety Active 2018-10 Grace left alone 0-01 (Pennie) 10:30: Mondragon [id number] Safety risk for Safety Active 2018-10 Grace hospitaliza 0-01 (Pennie) tion 10:30: Mondragon [id number] Medication oral med Meds Resolve 2018-102019-07-18 Grace assistance d 0-01 13:00:00 (Pennie) required 10:30: Mondragon [id number] Musculoskel transfer Musculoske Resolve 2018-102019-07-24 Grace etal assistance letal d 0-01 09:00:00 (Pennie) required 10:30: Mondragon [id number] Musculoskel requires Musculoske Resolve 2018-102019-07-24 Grace etal human letal d 0-01 09:00:00 (Pennie) assist to 10:30: Mondragon leave home 00 [id number] Nutrition nutritional Nutrition Resolve 2018-102019-07-18 Bimal restriction d 0-02 13:00:00 Anguish s 13:46: [id number] 00 Safety structural Safety Resolve 2018-102019-07-24 Bimal barriers d 0-02 09:00:00 Anguish present 13:46: [id number] 00 Safety can be left Safety Active 2018-10 Bimal alone for 0-02 Anguish only short 13:46: [id number] periods 00 Balance/End balance/meeting coordinator PT/OT: Active 2018-10 Bimal urance rdination Balance/En 0-02 Anguish deficit durance 13:46: [id number] 00 Balance/End endurance PT/OT: Active 2018-10 Bimal urance deficit Balance/En 0-02 Anguish durance 13:46: [id number] 00 Equipment prosthesis PT/OT: Active 2018-10 Bimal Mgmt mgmt Equipment 0-02 Anguish deficit Mgmt 13:46: [id number] 00 Gait/Locomo gait PT/OT: Active 2018-10 Bimal tion deficit Gait/Locom 0-02 Anguish problems otion 13:46: [id number] 00 Elimination bowel Eliminatio Resolve 2018-102019-07-24 Adry incontinenc n d 0-15 09:00:00 Ingrahm e 10:00: [id number] 00 Gait/Locomo gait PT/OT: Active 2018-10 Bimal tion assistive Gait/Locom 0-18 Anguish problems device otion 10:20: [id number] present 00 Nutrition nutritional Nutrition Resolve 2018-102019-07-24 Adry restriction d 0-22 09:00:00 Ingrahm s 10:00: [id number] 00 Nutrition nutritional Nutrition Active 2018-10 Adry restriction 0-29 Ingrahm s 08:46: [id number] 00 Allergies, Adverse Reactions, Alerts Allergy Name [...]
--- OUTSIDE RECORDS SUMMARY | 2019-08-18 11:44 | XMS REPORT | Summary of Care ---
:1940 Author Organization [facility] Address [address] [place] [address] Care Team Providers Name Role Phone May Castillo MD Primary Care Provider Reason for Visit Reason Comments Follow-up Encounter Details Date Type Department Care Team Description 08/15/2019 Office Visit [facility] Natalya, Chronic osteomyelitis (Primary Dx); Associates Lauryn BRANTLEY, [place] Ulcer of toe of left foot, with fat layer exposed Department of Surgery, [facility] Division of Vascular [address] Surgery and [place], [place] Endovascular Services [id number] [address] [address] [phone] [place] [address] (Fax) [phone] Allergies Active Allergy Reactions Severity Noted Date Comments Alendronate 05/30/2019 Other reaction(s): unknown Amoxicillin-Pot Clavulanate Hives 08/15/2019 Azathioprine 03/12/2019 Celecoxib 03/12/2019 Cilostazol 05/30/2019 Clindamycin/Lincomycin 03/12/2019 Triamterene-Hctz 03/12/2019 Alendronate Sodium 03/12/2019 Glucosamine 05/30/2019 Hwpp-H7-Pufrlsxz-Vinegar 03/12/2019 Hydrochlorothiazide 05/30/2019 W-Triamterene Hydroxychloroquine Nausea And Vomiting High 03/12/2019 Benazepril 03/12/2019 Methotrexate Derivatives 03/12/2019 Sulfa Antibiotics Rash High 03/12/2019 documented as of this encounter (statuses as of 08/18/2019) Medications Medication Sig Dispensed Refills Start End Date Status Date clopidogrel 0 Active (PLAVIX) 75 MG 9 tablet predniSONE Take 5 mg by 0 Active (DELTASONE) 10 MG mouth daily tablet gabapentin Take 600 mg by 0 Active (NEURONTIN) 400 MG mouth Three capsule times daily albuterol Take 2.5 mg by 0 Active (PROVENTIL) (2.5 nebulization MG/3ML) 0.083% every 6 (six) nebulizer solution hours as needed for Wheezing oxyCODONE Take 0.5 tablets 18 tablet 0 Active (ROXICODONE) 5 MG by mouth every 4 9 immediate release (four) hours as tablet needed for Pain, Max Daily Dose: 15 mg potassium chloride Take 1 tablet by 30 tablet 0 02/03/20 Active (K-DUR,KLOR-CON) 20 mouth daily 9 20 MEQ dissolvable tablet finasteride Take 5 mg by 0 Active (PROSCAR) 5 MG mouth daily tablet risedronate Take 35 mg by 0 Active (ACTONEL) 35 MG mouth every 7 tablet (seven) days with a full glass of water, on empty stomach, do not take anything else by mouth or lie down for next 30 minutes. omeprazole Take 20 mg by 0 Active (PRILOSEC) 20 MG mouth daily capsule TIMOLOL-DORZOLAMID- Apply to eye 0 Active LATANOPROST OP atorvastatin Take 40 mg by 0 Active (LIPITOR) 40 MG mouth every tablet evening Multiple Take by mouth 0 Active Vitamins-Minerals (CENTRUM SILVER PO) fludrocortisone Take 2 tablets 0 Active (FLORINEF) 0.1 MG by mouth daily 9 tablet levetiracetam Take 0.5 tablets 30 tablet 11 04/27/20 Active (KEPPRA) 1000 MG by mouth Two 9 20 tablet Times Daily sildenafil Take 0.5 tablets 15 tablet 11 04/27/20 Active (REVATIO) 20 MG by mouth Daily 9 20 tablet gabapentin Take 600 mg by 5 Active (NEURONTIN) 600 MG mouth Three 9 tablet times daily levETIRAcetam Take 500 mg by 11 Active (KEPPRA) 500 MG mouth Two Times 9 tablet Daily predniSONE TAKE 1 TABLET BY 11 Active (DELTASONE) 5 MG MOUTH THREE 9 tablet TIMES DAILY OR DIRECTED amoxicillin-clavula Take 1 tablet by 28 tablet 0 08/15/20 Discontinued brandt (AUGMENTIN) mouth Two Times 9 19 (Allergic 875-125 MG per Daily response) tablet documented as of this encounter (statuses as of 08/18/2019) Active Problems Problem Noted Date PVD (peripheral vascular disease) 04/28/2019 Foot ulcer 04/28/2019 Eschar of foot 02/03/2019 Other skin changes 02/03/2019 Skin tear of forearm without complication, left, initial encounter 02/03/2019 Syncope 01/31/2019 documented as of this encounter (statuses as of 08/18/2019) Social History Tobacco Use Types Packs/Day Years Used Date Former Smoker Quit: 10/01/1969 Smokeless Tobacco: Never Used Alcohol Use Drinks/Week oz/Week Comments Not Currently Had not had a beer in a year Sex Assigned at Date Recorded Not on file Job Start Date Occupation Industry Not on file Not on file Not on file Travel History Travel Start Travel End No recent travel history available. documented as of this encounter Last Filed Vital Signs Vital Sign Reading Time Taken Comments Blood Pressure 95/54 08/15/2019 2:30 PM EST Pulse 73 08/15/2019 2:30 PM EST Temperature 37.1 08/15/2019 2:30 PM EST C (98.7 F) Respiratory Rate 18 08/15/2019 2:30 PM EST Oxygen Saturation 100% 08/15/2019 2:30 PM EST Inhaled Oxygen Concentration - - Weight 63.5 kg (140 lb) 08/15/2019 2:30 PM EST Height 188 cm (6' 2") 08/15/2019 2:30 PM EST Body Mass Index 17.97 08/15/2019 2:30 PM EST documented in this encounter Progress Notes Lauryn Hoang NP - 08/15/2019 2:00 PM EST Reason for Visit: 2 week f/u for wound check HPI: John Tong is a 79 y.o.male with PMH significant for HTN, CAD, syncope , and PVD with ulcer to left foot. He previously underwent a right BKA in 2019. He is being followed for severe PAD and a nonhealing ulcer of the LLE. John is s/p a diagnostic angio on 04/28/[address] Monahan via the right groin which showed an occlusion of the peroneal artery at mid calf, high grade stenosis after the take off of the Posterior Tibial artery, occlusion of the PT at the mid calf with reconstitution via collaterals of the plantar and distal PT artery. There was no intervention at that time. He was started on Sildenafil He has been being followed on a monthly basis for surveillance of his left 1st, 3rd distal phalanx and lateral forefoot wounds which has been present since October 2018. On 08/04/19 John presented to the office with a swollen, red and draining 3rd toe wound which probed to bone. At that time he was started on 2 weeks of Augmentin for the toe and Vancomycin for CDiff coverage due to a recent infection requiring hospitalization. He presents to the office today with his for wound check. His has been managing his woundswith antibiotic ointment and Aquacel AG. He states he was not able to take the Augmentin cause he had a reaction to it. He said he developed hives after 1 dose. He has been taking the prescribed Vancomycin. He states he is having a lot of pain with the 3rd toe. John's states that over the last 2 days she has not been placing Aquacel AG to the toes cause it has been irritating the healthy tissue around the wound. He is very concerned about losing his toes. He is currently taking Sildenafil in which he is tolerating well. 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, not intractable, without status epilepticus Low back pain Macular degeneration Neuroma Other dysphagia Other fatigue PVD (peripheral vascular disease) Raynauds syndrome Rhinitis S/P BKA (below knee amputation), right Seizures Syncope and collapse Umbilical hernia without obstruction and without gangrene Unspecified adrenocortical insufficiency Past Surgical History: Procedure Laterality Date ART EXTREMITY LOWER OR UPPER Left 04/28/2019 Procedure: [facility] ANGIO EXTREMITY UNILAT [70060]; Surgeon: Arleen Monahan MD; Location: [facility]; Service: Vascular; Laterality: Left; CATARACT EXTRACTION Right BKA TONSILLECTOMY VASCULAR SURGERY Medications: Home Medications Medication Sig albuterol (PROVENTIL) (2.5 MG/3ML) 0.083% nebulizer solution Take 2.5 mg by nebulization every 6 (six) hours as needed for Wheezing atorvastatin (LIPITOR) 40 MG tablet Take 40 mg by mouth every evening clopidogrel (PLAVIX) 75 MG tablet finasteride (PROSCAR) 5 MG tablet Take 5 mg by mouth daily fludrocortisone (FLORINEF) 0.1 MG tablet Take 2 tablets by mouth daily gabapentin (NEURONTIN) 400 MG capsule Take 600 mg by mouth Three times daily gabapentin (NEURONTIN) 600 MG tablet Take 600 mg by mouth Three times daily levetiracetam (KEPPRA) 1000 MG tablet Take 0.5 tablets by mouth Two Times Daily levETIRAcetam (KEPPRA) 500 MG tablet Take 500 mg by mouth Two Times Daily Multiple Vitamins-Minerals (CENTRUM SILVER PO) Take by mouth omeprazole (PRILOSEC) 20 MG capsule Take 20 mg by mouth daily oxyCODONE (ROXICODONE) 5 MG immediate release tablet Take 0.5 tablets by mouth every 4 (four) hours as needed for Pain, Max Daily Dose: 15 mg potassium chloride (K-DUR,KLOR-CON) 20 MEQ dissolvable tablet Take 1 tablet by mouth daily predniSONE (DELTASONE) 10 MG tablet Take 5 mg by mouth daily predniSONE (DELTASONE) 5 MG tablet TAKE 1 TABLET BY MOUTH THREE TIMES DAILY OR DIRECTED risedronate (ACTONEL) 35 MG tablet Take 35 mg by mouth every 7 (seven) days with a full glass of water, on empty stomach, do not take anything else by mouth or lie down for next 30 minutes. sildenafil (REVATIO) 20 MG tablet Take 0.5 tablets by mouth Daily [id number]-[id number]-[id number] OP Apply to eye amoxicillin-clavulanate (AUGMENTIN) 875-125 MG per tablet Take 1 tablet by mouth Two Times Daily Patient not taking: Reported on 08/15/2019 Allergies: Hydroxychloroquine; Sulfa antibiotics; Alendronate; Augmentin [amoxicillin-pot clavulanate]; Azathioprine; Celebrex [celecoxib]; Cilostazol; Clindamycin/ lincomycin; Dyazide [triamterene-hctz]; Fosamax [alendronate sodium]; Glucosamine; Glucosamine chond complex-msm [ogxc-t3-uzcygjeq-vinegar]; Hydrochlorothiazide w-triamterene; Lotensin [benazepril]; and Methotrexate derivatives Family History Family history unknown: Yes Social History Tobacco History Smoking Status Former Smoker Quit date 10/01/1969 Smokeless Tobacco Use Never Used Alcohol History Alcohol Use Status Not Currently Comment Had not had a beer in a year Drug Use Drug Use Status Never Sexual Activity Sexually Active Not Currently Activities of Daily Living Not Asked ROS: Constitutional: Denies fever, chills, fatigue, and unexpected weight change HEENT: Denies visual difficulties, hearing is good Respiratory: Denies cough,shortness of breath, wheezing, chronic cough or sputum production, no hemoptysis Cardiovascular: Denies chest pain or pressure, palpitations, or leg swelling Gastrointestinal: Denies nausea, vomiting, abdominal pain, diarrhea, constipation or blood in the stool Genitourinary: Denies dysuria, urgency, frequency, hematuria, and difficulty urinating Skin: Denies rashes or lesions Extremities/Musculoskeletal: Reports pain and numbness of the left foot. Denies muscle weakness or back pain Neurological: Denies dizziness, seizures, difficulty with speech, weakness, or numbness. Negative for TIA or CVA Hematological: Denies bruising easily or anemia Vitals: Vitals: 08/15/19 1430 BP: 95/54 Pulse: 73 Resp: 18 Temp: 37.1 C (98.7 F) SpO2: 100% Physical Exam: General appearance: Alert, appears stated age, cooperative and no distress, presents in wheelchair. Head: Normocephalic, without obvious abnormality, atraumatic Eyes: Negative findings: conjunctivae and sclerae normal Lungs: Respirations unlabored on room air Cardiac: Normal rate and rhythm. Extremities: No edema noted of the BLE. Left foot is warm with no cyanosis or rubor. Motor and sensory function intact. He has a right leg prosthesis. Pulses: Monophasic AT, biphasic PT, Triphasic peroneal pulse in the LLE. Skin: Skin color, texture, turgor normal. No rashes. Wound: There is a open area on the tip of the left 1st great toe that now probes bone. It looks as if the toe nail was cut back and the scab fell off. No drainage noted. There is slight erythema. The left 3rd toe looks less erythematous and swollen then it was previously. There is a small area of fibrous slough noted. The wound does probe bone. The left lateral forefoot wound appears healed. It is dry and flaky. Neuro: Alert and oriented x3. Speech clear and appropriate. Mood and Affect: Pleasant and appropriate Left first toe Left 3rd toe Left lateral forefoot Imaging and other Diagnostics: None at this time Assessment: 1. Chronic osteomyelitis 2. Ulcer of toe of left foot, with fat layer exposed Plan: John Tong presents to the office today for a wound check of his left 1st, 3rd and lateral foot wounds. He unfortunately did not tolerate the Augmentin as he developed a allergic reaction to it. Dr. Monahan feels he needs antibiotic coverage to help heal these toe wounds. Unfortunately there is no intervention that can be done to help improve blood supply to the foot. She is uncertain that he would even heal toe amputations. His left 1st toe now probes bone as well. His third toe appears less erythematous and swollen however it is not healing and still probes bone. He should continue to placeantibiotic ointment, Aquacel AG and a DSD to his toe ulcers. These are to be changed every day or asneeded for saturation. Per Dr. Monahan, he is to come to the [facility] in [place] in 2 weeks and she will try to cut back the exposed bone to help heal these wounds. Instructed pt to go to the ER with any fever, chills or increased or foul drainage from his wound. Dr. Monahan had discussed this planwith John's PCP Dr. Castillo to determine which antibiotics he has been on in the past and has tolerated as his list of allergies is long. Per Dr. Castillo, she is going to start him on Doxycyclinefor the toe wounds. She is also going to continue the Vancomycin to prevent reoccurrence of Cdiff. John will follow up with Dr. Monahan at the [facility] in 2 weeks. JOCELYN Preston Date: August 04, 2019 Time:5:23 PM documented in this encounter Plan of Treatment Date Type Specialty Care Team Description 08/26/2019 Office Visit Vascular Surgery Arleen Monahan MD [facility] [place] [address] [phone] Health Maintenance Due Date Last Done Comments MMR Vaccines (1 of 1 - Standard 1940 series) DTaP,Tdap,and Td Vaccines (1 - 1946 Tdap) Zoster Vaccines (1 of 2) 1989 Pneumococcal Vaccine: 65+ Years (1 2004 of 2 - PCV13) Influenza Vaccine 07/01/2019 HIB Vaccines Aged Out No longer eligible based on patient's age to complete this topic Hepatitis A Vaccines Aged Out No longer eligible based on patient's age to complete this topic Hepatitis B Vaccines Aged Out No longer eligible based on patient's age to complete this topic IPV Vaccines Aged Out No longer eligible based on patient's age to complete this topic Pneumococcal Vaccine: Pediatrics Aged Out No longer eligible based on (0 to 5 Years) and At-Risk patient's age to complete this Patients (6 to 64 Years) topic Varicella Vaccines Aged Out No longer eligible based on patient's age to complete this topic documented as of this encounter Results Not on filedocumented in this encounter Visit Diagnoses Diagnosis Chronic osteomyelitis - Primary Chronic osteomyelitis, site unspecified Ulcer of toe of left foot, with fat layer exposed documented in this encounter
--- OUTSIDE RECORDS SUMMARY | 2019-08-18 11:44 | XMS REPORT | Continuity of Care Document ---
:1940 External Reference #:[id number] Author Name Alexandre Contreras M.D. Address [address] [place] [address] Care Team Providers Name Role Phone May Castillo M.D. - Internal Medicine Care Team Information [employer] [phone] Problems Active Problems Provider Date Allergic rhinitis Onset: Essential hypertension Onset: Ankylosing spondylitis Onset: Rheumatoid arthritis Onset: Raynaud's disease Onset: Benign prostatic hyperplasia Onset: Primary open angle glaucoma Alexandre Contreras M.D. Onset: 04/02/2015 Nonexudative age-related macular degeneration Alexandre Contreras M.D. Onset: Moderate Glaucoma Alexandre Contreras M.D. Onset: 04/02/2015 Pseudophakia Alexandre Contreras M.D. Onset: 04/02/2015 Angular blepharoconjunctivitis Neela Epstein O.D. Onset: 02/12/2016 Bilateral primary open angle glaucoma Alexandre Contreras M.D. Onset: 08/01/2016 Bilateral primary open angle glaucoma Alexandre Cotnreras M.D. Onset: 01/30/2017 Bilateral age-related nonexudative macular Alexandre Contreras M.D. Onset: 08/07 degeneration Squamous blepharitis Alexandre Contreras M.D. Onset: 08/07/2017 Presence of intraocular lens Alexandre Contreras M.D. Onset: 08/07/2017 Invasive fungal infection Onset: Note: Skin Discoid lupus erythematosus Onset: Seizure disorder Onset: Note: Micro Seizures Infection of toe Onset: Taking medication Alexandre Contreras M.D. Onset: 08/08/2018 Systemic lupus erythematosus Alexandre Contreras M.D. Onset: 08/08/2018 Lupus vulgaris Onset: Social History Type Date Description Comments Sex Unknown ETOH Use Consumes 2-3 beers per day Tobacco Use Start: Unknown End: Unknown Patient is a former smoker Recreational Drug Use Denies Drug Use Smoking Status Reviewed: 08/12/19 Patient is a former smoker Allergies, Adverse Reactions, Alerts Active Allergies Reaction Severity Comments Date Celebrex 04/02/2015 Lotensin 04/02/2015 Methotrexate 04/02/2015 Azathioprine 04/02/2015 Dyazide 04/02/2015 Fosamax 04/02/2015 Morphine 04/22/2019 Hydrochlorothiazide 04/22/2019 Penicillin 04/22/2019 Triamterene 04/22/2019 Clindamycin 04/22/2019 Benazepril 04/22/2019 Glucosamine 04/22/2019 Hydroxychloroquine 04/22/2019 Alendronate Sodium 04/22/2019 Cilostazol 04/22/2019 Medications Active Medications SIG Qnty Indications Ordering Date Provider Ursula Taylor instill 1 drop 2.500ml H40.11x1 Alexandre Contreras, 04/22/2015 0.004% Solution in both eyes M.D. every night Sildenafil Citrate Take 1 2 (One Unknown 20mg Half) Tablet By Tablets Mouth Once Daily Sodium Chloride Take 2 Tablets Unknown 1gm Tablets By Mouth Twice Daily Amoxicillin/Clavulanate Take 1 Tablet Unknown Potassium By Mouth Twice 875-125mg Tablets Daily Vancomycin HCL Take 1 Capsule Unknown 125mg By Mouth 4 Capsules Times Daily For 2 Weeks Magnesium 1 tablet 1 time Unknown 250mg Tablets per day Calcium + D Unknown [id number] Tablets Demeclocycline HCL Take 1 Tablet Unknown 150mg By Mouth Twice Tablets Daily Finasteride Unknown 5mg Tablets Clopidogrel Bisulfate Take 1 Tablet Unknown 75mg By Mouth Once Tablets Daily Fludrocortisone Acetate Unknown 0.1mg Tablets Omeprazole Take 1 Capsule Unknown 20mg Capsules DR By Mouth Once Daily Gabapentin Take 1 Tablet Unknown 600mg Tablets By Mouth Three Times Daily Atorvastatin Calcium Unknown 40mg Tablets Levetiracetam Unknown 500mg Tablets Pantoprazole Sodium Unknown 40mg Tablets DR Centrum Silver Unknown Tablets Multiple Vitamins Unknown Tablets Prednisone three times a Unknown 5mg Tablets day Immunizations Description No Information Available Vital Signs Date Vital Result Comment 06/20/2016 2:53pm BP Systolic 120 mmHg BP Diastolic 47 mmHg Heart Rate 55 /min Respiratory Rate 16 /min Results Description No Information Available Procedures Date Code Description Status 04/22/2019 83028 Scanning Computerized Opthalmic Diagnostic Posterior Seg Completed Retina 04/22/2019 94478 Est Patient Comprehensive Exam Completed Medical Devices Description No Information Available Encounters Description No Information Available Assessments Date Code Description Provider 08/12/2019 H40.1131 Primary open-angle glaucoma, bilateral, Alexandre Contreras M.D. mild stage 08/12/2019 Z96.1 Presence of intraocular lens Alexandre Contreras M.D. 08/12/2019 H35.3131 Nonexudative age-related macular Alexandre Contreras M.D. degeneration, bilateral, ea 04/22/2019 H40.1131 Primary open-angle glaucoma, bilateral, Alexandre Contreras M.D. mild stage 04/22/2019 Z96.1 Presence of intraocular lens Alexandre Contreras M.D. 04/22/2019 H35.3131 Nonexudative age-related macular Alexandre Contreras M.D. degeneration, bilateral, ea Plan of Treatment 08/12/2019 - Alexandre Contreras M.D.H40.1131 Primary open-angle glaucoma, bilateral, mild stageComments:Smoking can increase the risk of developing or worsening any eye related disease, as well as affect your overall health. If you are a smoker, we strongly recommend that you quit.If you are not a smoker, we strongly recommend that you do not start. Your glaucoma is borderline at this time in both eyes. This could mean that your eye pressure is higher than your desired target, but not high enough tochange your treatment; or your eye pressure is in your target range, but there are questionable changes on your Glaucoma testing.Follow up:4 Month Follow Up IOP Check At your next visit, we are not planning to dilate your eyes. However, if you have any changes in your vision or new symptoms, there are certain situations that require us to dilate your eyes. If Dr. Contreras requests any additional testing, that may require extra time. If you have any questions before your next appointment, please call our office at .Z96.1 Presence of intraocular lensComments:The artificial lens implants in both eyes appear to be stable at this time.H35.3131 Nonexudative age-related macular degeneration, bilateral, eaComments:You have Macular Degeneration. Check your Amsler Grid, with each eye separately, and take the AREDS II formula vitamins. If you notice any changes in your vision, please call the office and schedule anappointment to see any of the doctors here. Functional Status Description No Information Available Mental Status Description No Information Available Referrals Description No Information Available
--- OUTSIDE RECORDS SUMMARY | 2019-08-18 11:45 | XMS REPORT | Summary of Care ---
:1940 Author Organization [facility] Address [address] [place] [address] Care Team Providers Name Role Phone May Castillo MD Primary Care Provider Reason for Visit Reason Comments Follow-up Encounter Details Date Type Department Care Team Description 08/06/2019 Office Visit [facility] Lauryn Hoang Ulcer of toe of left foot, with fat layer exposed (Primary Dx); [facility], PATTERN CHECKER PAD (peripheral artery disease) Department of Surgery, [facility] Division of Vascular [address] [place] [address] Endovascular Services [phone] [address] [place] [address] Allergies Active Allergy Reactions Severity Noted Date Comments Alendronate 05/30/2019 Other reaction(s): unknown Azathioprine 03/12/2019 Celecoxib 03/12/2019 Cilostazol 05/30/2019 Clindamycin/Lincomycin 03/12/2019 Triamterene-Hctz 03/12/2019 Alendronate Sodium 03/12/2019 Glucosamine 05/30/2019 Zdtd-F3-Nepyyvij-Vinegar 03/12/2019 Hydrochlorothiazide 05/30/2019 W-Triamterene Hydroxychloroquine Nausea And Vomiting High 03/12/2019 Benazepril 03/12/2019 Methotrexate Derivatives 03/12/2019 Sulfa Antibiotics Rash High 03/12/2019 documented as of this encounter (statuses as of 08/06/2019) Medications Medication Sig Dispensed Refills Start Date End Date Status clopidogrel (PLAVIX) 0 10/24/2018 Active 75 MG tablet predniSONE Take 5 mg by mouth 0 Active (DELTASONE) 10 MG daily tablet demeclocycline Take 150 mg by 0 Active (DECLOMYCIN) 150 MG mouth Two Times tablet Daily gabapentin Take 600 mg by 0 Active (NEURONTIN) 400 MG mouth Three times capsule daily albuterol (PROVENTIL) Take 2.5 mg by 0 Active (2.5 MG/3ML) 0.083% nebulization every nebulizer solution 6 (six) hours as needed for Wheezing oxyCODONE Take 0.5 tablets 18 tablet 0 02/03/2019 Active (ROXICODONE) 5 MG by mouth every 4 immediate release (four) hours as tablet needed for Pain, Max Daily Dose: 15 mg potassium chloride Take 1 tablet by 30 tablet 0 02/04/2019 02/03/2020 Active (K-DUR,KLOR-CON) 20 mouth daily MEQ dissolvable tablet finasteride (PROSCAR) Take 5 mg by mouth 0 Active 5 MG tablet daily risedronate (ACTONEL) Take 35 mg by 0 Active 35 MG tablet mouth every 7 (seven) days with a full glass of water, on empty stomach, do not take anything else by mouth or lie down for next 30 minutes. omeprazole (PRILOSEC) Take 20 mg by 0 Active 20 MG capsule mouth daily [id number] Apply to eye 0 Active TANOPROST OP atorvastatin Take 40 mg by 0 Active (LIPITOR) 40 MG mouth every tablet evening Multiple Take by mouth 0 Active Vitamins-Minerals (CENTRUM SILVER PO) fludrocortisone Take 2 tablets by 0 04/29/2019 Active (FLORINEF) 0.1 MG mouth daily tablet levetiracetam Take 0.5 tablets 30 tablet 04/29/2019 04/27/2020 Active (KEPPRA) 1000 MG by mouth Two Times tablet Daily sildenafil (REVATIO) Take 0.5 tablets 15 tablet 04/29/2019 04/27/2020 Active 20 MG tablet by mouth Daily gabapentin Take 600 mg by 5 04/24/2019 Active (NEURONTIN) 600 MG mouth Three times tablet daily levETIRAcetam Take 500 mg by 05/22/2019 Active (KEPPRA) 500 MG mouth Two Times tablet Daily cefdinir (CEFDINYL) Take 300 mg by 1 07/03/2019 Active 300 MG capsule mouth Two Times Daily predniSONE TAKE 1 TABLET BY 11 07/01/2019 Active (DELTASONE) 5 MG MOUTH THREE TIMES tablet DAILY OR DIRECTED amoxicillin-clavulana Take 1 tablet by 28 tablet 0 08/04/2019 08/18/2019 Active te (AUGMENTIN) mouth Two Times 875-125 MG per tablet Daily documented as of this encounter (statuses as of 08/06/2019) Active Problems Problem Noted Date PVD (peripheral vascular disease) 04/28/2019 Foot ulcer 04/28/2019 Eschar of foot 02/03/2019 Other skin changes 02/03/2019 Skin tear of forearm without complication, left, initial encounter 02/03/2019 Syncope 01/31/2019 documented as of this encounter (statuses as of 08/06/2019) Social History Tobacco Use Types Packs/Day Years [...] Sign Reading Time Taken Comments Blood Pressure 93/54 08/04/2019 8:33 AM EST Pulse 76 08/04/2019 8:33 AM EST Temperature 36.9 08/04/2019 8:33 AM EST C (98.5 F) Respiratory Rate 20 08/04/2019 8:33 AM EST Oxygen Saturation 98% 08/04/2019 8:33 AM EST Inhaled Oxygen Concentration - - Weight 64.4 kg (142 lb) 08/04/2019 8:33 AM EST Height - - Body Mass Index 18.73 07/07/2019 7:28 AM EDT documented in this encounter Progress Notes Lauryn Hoang NP - 08/04/2019 2:30 PM EST Reason for Visit: 1 month f/u for wound check HPI: John Tong is a 78 y.o.male with PMH significant for HTN, CAD, [...] was no intervention at that time. He presents to the office today with his and daughter for a wound check. He has small ulcers onthe left 1st and 3rd distal phalanx and lateral forefoot. These ulcers have been present since October 2018. His has been managing his wounds with antibiotic ointment. Since he was last seen 1 month ago he states he was hospitalized for CDiff and was on vancomycin. He finished this a couple days ago. He is currently off antibiotics. We do not have records of his hospitalization. He is concerned with his left 3rd toe. He states a few days ago it started to get red and swollen. He states it is sore and tingly. He has not been placing the Aquacel AG to the wounds as prescribed because his states she was in a car accident and the wound supplies given to her were lost in the accident. He denies any fever or chills. He is currently taking Sildenafil in which [...] EXTREMITY LOWER OR UPPER Left 04/28/2019 Procedure: CHG ANGIO EXTREMITY UNILAT [08861]; Surgeon: Arleen Monahan MD; Location: [facility]; Service: Vascular; Laterality: Left; CATARACT EXTRACTION Right BKA TONSILLECTOMY VASCULAR SURGERY Medications: Home Medications Medication Sig albuterol (PROVENTIL) (2.5 MG/3ML) 0.083% nebulizer solution Take 2.5 mg by nebulization every 6 (six) hours as needed for Wheezing amoxicillin-clavulanate (AUGMENTIN) 875-125 MG per tablet Take 1 tablet by mouth Two Times Daily atorvastatin (LIPITOR) 40 MG tablet Take 40 mg by mouth every evening cefdinir (CEFDINYL) 300 MG capsule Take 300 mg by mouth Two Times Daily clopidogrel (PLAVIX) 75 MG tablet demeclocycline (DECLOMYCIN) 150 MG tablet Take 150 mg by mouth Two Times Daily finasteride (PROSCAR) 5 MG tablet Take 5 [...] Vitamins-Minerals (CENTRUM SILVER PO) Take by mouth oxyCODONE (ROXICODONE) 5 MG immediate release tablet [...] tablet Take 0.5 tablets by mouth Daily CILBAFT-HRIZTXNPSC-JCKSJAWXFFQ OP Apply to eye omeprazole (PRILOSEC) 20 MG capsule Take 20 mg by mouth daily Allergies: Hydroxychloroquine; Sulfa antibiotics; Alendronate; Azathioprine; Celebrex [ celecoxib]; Cilostazol; Clindamycin/lincomycin; Dyazide [triamterene-hctz]; Fosamax [alendronate sodium]; Glucosamine; Glucosamine chond complex-msm [kelp- x0-aidjxwmx-rtanqis]; Hydrochlorothiazide w-triamterene; Lotensin [benazepril]; and Methotrexate derivatives [...] Denies bruising easily or anemia Vitals: Vitals: 08/04/19 0833 BP: 93/54 Pulse: 76 Resp: (!) 20 Temp: 36.9 C (98.5 F) SpO2: 98% Physical Exam: General appearance: Alert, appears stated age, cooperative and no distress, presents in wheelchair. Head: Normocephalic, without obvious abnormality, atraumatic Eyes: Negative findings: conjunctivae and sclerae normal Lungs: Respirations unlabored on room air Cardiac: Normal rate and rhythm. Extremities: No edema noted of the BLE. Bilateral feet are warm with no cyanosis or rubor. Motor andsensory function intact. He has a right leg prosthesis. Pulses: Monophasic AT, biphasic PT, Triphasic peroneal pulse in the LLE. Skin: Skin color, texture, turgor normal. No rashes. Wound: There is a necrosed area on the tip of the left 1st great toe that is dry. No drainage or erythema noted. Wound was debrided and revealed a pink wound base. The left 3rd toe is erythematous and swollen to the tarsal. The necrotic area was debrided and revealed a serosanginous pus like drainage without odor. The wound does probe bone. The left lateral forefoot wound appears smaller. It is dry and flaky. The wound was debrided and revealed a yellow slough wound base. Neuro: Alert and oriented x3. Speech clear and appropriate. Mood and Affect: Pleasant and appropriate Left great toe Left 3rd toe Left lateral forefoot Imaging and other Diagnostics: None at this time Assessment: 1. Ulcer of toe of left foot, with fat layer exposed 2. PAD (peripheral artery disease) Plan: John Tong presents to the office today for a wound check of his left 1st, 3rd and lateral foot wounds. He was previously taking Cefdinir and demeclocycline for antimicrobial coverage. However, he developed CDiff and was hospitalized on July 11 2019. He was discharged on Vancomycin in which he has completed. He presents today with a worsening left 3rd toe wound that has increased drainage, erythema and probes bone. Dr. Castillo, his PCP was consulted on her recommendations as John needs antibiotics to try to heal this wound to prevent a further amputation. She recommended another course of oral Vancomycin for the duration of his antibiotics to prevent reoccurrence of CDiff. I will prescribe Augmentin 875-125mg BID x [address] Castillo, she will prescribe his Vancomycin. Iinstructed pt to place antibiotic ointment, Aquacel AG and a DSD to his toe ulcers. These are to be changed every other day or as needed for saturation. I will follow up with John in 2 weeks for a wound check. Instructed pt to go to the ER with any fever, chills or increased or foul drainage from his wound. -Prescribed Augmentin 875-125mg BID x14 days -Dr. Castillo will prescribe oral Vancomycin x14 days to be taken with the Augmentin -Continue antibiotic ointment with Aquacel AG and a DSD to his left foot 1, 3rd and lateral forefootulcers. Change every other day or PRN for saturation -Follow up in 2 weeks for wound check JOCELYN Preston Date: August 04, 2019Electronically signed by Lauryn Hoang NP at 2018 3:06 PM ESTdocumented in this encounter Plan of Treatment Date Type Specialty Care Team Description 08/15/2019 Office Visit Vascular Surgery Lauryn Hoang, PATTERN CHECKER [address] [facility] [address] [place] [address] [phone] Health Maintenance Due Date Last Done Comments [...] filedocumented in this encounter Visit Diagnoses Diagnosis Ulcer of toe of left foot, with fat layer exposed - Primary PAD (peripheral artery disease) Peripheral vascular disease, unspecified documented in this encounter
[2019-08-18 11:51] LABS: Activated Partial Thrombo Time 29.4 seconds (26.0-38.0); INR 1.09 (0.82-1.09)
[2019-08-18 11:55] LABS: ALT 18 U/L (7-52); AST 22 U/L (13-39); Albumin 2.8 g/dL (3.2-5.2); Albumin/Globulin Ratio 0.5 (1-3); Alkaline Phosphatase 68 U/L (34-104); Anion Gap 5 mmol/L (2-11); Blood Urea Nitrogen 15 mg/dL (6-24); CO2 Carbon Dioxide 25 mmol/L (22-32); Calcium 10.3 mg/dL (8.6-10.3); Chloride 102 mmol/L (101-111); EGFR African American 80.5 (>60); EGFR Non-African American 66.5 (>60); Globulin 5.7 g/dL (2-4); Glucose 196 mg/dL (70-100); Magnesium 1.2 mg/dL (1.9-2.7); Potassium 4.1 mmol/L (3.5-5.0); Sodium 132 mmol/L (135-145); Total Protein 8.5 g/dL (6.4-8.9)
[2019-08-18 12:12] LABS: Alcohol < 10 mg/dL (<10)
[2019-08-18 12:26] LABS: TSH (Thyroid Stimulating Horm) 2.92 mcIU/mL (0.34-5.60)
[2019-08-18] MEDS ORDERED: Magnesium Sulfate 1 GM IV* 1 GM/100 ML BAG IV ONE (12:52)
[2019-08-18 13:06] LABS: Urine Appearance Cloudy; Urine Blood Negative (Negative); Urine Color Yellow; Urine Ketones Negative (Negative); Urine Protein 1+(30 mg/dL) (Negative); Urine Urobilinogen Negative (Negative)
[2019-08-18 13:07] LABS: Urine Bilirubin Negative (Negative); Urine Glucose Negative (Negative); Urine Nitrite Negative (Negative)
[2019-08-18 13:11] LABS: Urine Bacteria Absent (Absent); Urine Red Blood Cell 3+(>10/hpf) (Absent); Urine White Blood Cell 3+(>20/hpf) (Absent)
[2019-08-18] MEDS ORDERED: Magnesium Sulfate IV* 3 GM in NS 0.9% 100 ML* 100 ML IVPB ONE (14:04)
[2019-08-18 15:59] LABS: C Reactive Protein 19.49 mg/L (<8.01)
[2019-08-18] MEDS: DOXYcycline CAP(*) 100 MG PO SCH ×2 (17:52→22:10)
[2019-08-18] MEDS: levETIRAcetam TAB* 500 MG PO SCH ×2 (17:52→22:10)
[2019-08-18] MEDS: Clopidogrel TAB* 75 MG PO SCH (17:52)
[2019-08-18] MEDS: predniSONE TAB* 5 MG PO SCH (17:53)
[2019-08-18] MEDS: Neomycin/Polym/Bacit TOP OINT* 15 GM TOPICAL SCH (17:53)
[2019-08-18] MEDS: Vancomycin CAP* 125 MG CAP PO SCH ×2 (17:53→22:10)
[2019-08-18] MEDS: Enoxaparin(*) 40 MG/0.4 ML SYR SUBCUT SCH (17:54)
--- NOTE | 2019-08-18 18:03 | HP ---
HISTORY AND PHYSICAL: DATE OF ADMISSION: 08/18/19 ADMITTING PROVIDER: Fox Deleon MD. PRIMARY CARE PROVIDER: Dr. May Castillo. CHIEF COMPLAINT: Syncope. HISTORY OF PRESENT ILLNESS: John Tong is an 79-year-old male with past medical history of peripheral arterial/peripheral vascular disease, status post right BKA; anemia of chronic disease; BPH; cutaneous lupus erythematosus; orthostatic hypotension; secondary adrenal insufficiency; ?seizure disorder; hyponatremia; osteoporosis; hypomagnesemia. He recently was diagnosed with C. diff on 07/12/19 and ever since then has been on p.o. vancomycin. It was continued as a prophylactic measure given reinitiation of oral antibiotics for his chronic left toe ulcerations in the setting of peripheral arterial disease, though he has had greatly improved symptoms in terms of diarrhea. He does have a history of "spells," for which he has been worked up at [facility] in November when he had an EEG and has been on Keppra for what sounds like more than a year , but has not followed up with an outpatient neurologist. He has also been treated for adrenal insufficiency in the setting of 10 to 12 years' worth of prednisone and is also on Florinef since October. He was feeling weak over the last few days. He had trouble wiping himself on the toilet. His Corinne assisted him and he then slumped to the side against the wall, started drooling , was not talking. EMS was called and he started to be more alert sometime in the ambulance. His blood pressure after the syncope event was 98/31 per Corinne; with EMS, it was 125/63. He denies any chest pain, shortness of breath, palpitations, fevers, but has had chills ever since the event. His initial workup in the emergency room included a lactic acidosis of 2.8, a magnesium level of 1.2, a BNP of greater than 1300, hemoglobin of 11.2; no leukocytosis, afebrile. He was orthostatic between sitting and standing positions with greater than 30-point blood pressure drop and 29 beats per minute heart rate increase. His last echo was approximately in November up at [facility], though last in our system as far as I can tell was March 2016 with EF of 60% to 65% when he followed up with Dr. Wakefield. Of note, he has been started on sildenafil by Dr. Arleen Monahan of [facility] Vascular Surgery to help with his peripheral vascular disease. He is planning on evaluation soon where he might need to have the "bone scraped." He denies any dysuria. Did have a recent Enterococcus faecium UTI. In the emergency room, he got 1 g of magnesium and was referred to hospitalist service for admission given his syncope and elevated BNP. The patient has been incontinent of stool in the ambulance. 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 polymyalgia rheumatica (he does have elevated SSA/Ro antibody and MOIRA modestly elevated at 1.9); secondary adrenal insufficiency; ?seizure disorder, on Keppra prophylactically for the last year; hyponatremia. PAST SURGICAL HISTORY: Right below-knee amputation in [place] on 10/28/18, right rotator cuff repair, bilateral cataract extractions, left rotator cuff repair, left lateral elbow release, tonsillectomy, left hydrocele repair. MEDICATIONS: Include: 1. Oxycodone 5 mg p.o. q.4 hours p.r.n. (he actually takes 10 mg p.o. q.p.m. p.r.n. instead). 2. Plavix 75 mg p.o. daily. 3. Sodium chloride tabs 1 g p.o. b.i.d. 4. Omeprazole 20 mg p.o. daily. 5. Atorvastatin 40 mg p.o. daily. 6. Potassium chloride 10 mEq p.o. a.m. and 20 mEq p.o. p.m. 7. Multivitamin tab. 8. Doxycycline 100 mg p.o. b.i.d. 9. Vancomycin 125 mg p.o. q.i.d. since mid July. 10. Gabapentin 600 mg p.o. b.i.d. 11. Florinef 1 mg p.o. daily. 12. Finasteride 1 mg p.o. daily. 13. Sildenafil 20 mg p.o. daily. 14. Prednisone 5 mg p.o. daily. 15. Keppra 500 mg p.o. b.i.d. ALLERGIES: Include ALENDRONATE, unknown; AZATHIOPRINE, unknown; BENAZEPRIL, unknown; CELECOXIB, hives; CILOSTAZOL, unknown; CLINDAMYCIN, unknown; GLUCOSAMINE, unknown; HYDROCHLOROTHIAZIDE, unknown; HYDROXYCHLOROQUINE, "he almost ;" METHOTREXATE, unknown; MORPHINE, phlebitis; SULFA "he almost ; " TRIAMTERENE, unknown. FAMILY HISTORY: His mother of old age/unknown causes at age 85. His dad had a CVA and what sounds like peripheral vascular disease. 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 His medical surrogate is his who is in the room, Corinne. Desires to be a DNR/ DNI. He says this is on file. He is a former smoker. He considers himself a moderate alcohol drinker of beer, none recently. REVIEW OF SYSTEMS: A complete 14-point review of systems is negative except as per HPI. PHYSICAL EXAMINATION GENERAL APPEARANCE: No acute distress. VITAL SIGNS: Temperature 98.0, pulse 98, respiratory rate 16, satting 98% on room air, blood pressure 107/54. HEENT: Normocephalic, atraumatic. Pupils are equal, round, and reactive to light. Extraocular motions intact. No scleral icterus. LUNGS: Clear to auscultation bilaterally with no wheezing, rales, or rhonchi. CARDIOVASCULAR: Regular rate and rhythm. No murmurs, rubs, or gallops. ABDOMEN: Soft, nontender, nondistended. No rebound. No guarding. No Villegas sign. EXTREMITIES: Warm. He is status post right BKA. His left first and second toes have distal ulcerations with no drainage. He has palpable dorsalis pedis. NEURO: Cranial nerves II through XII intact. Stations Superintendent strength intact. Sensation intact. DIAGNOSTIC STUDIES/LAB DATA: White count 7.3, hemoglobin 11.2, hematocrit 33, platelets 180. INR 1.09. Sodium 132, potassium 4.1, chloride 102, carbon dioxide 25, BUN 15, creatinine 1.07, glucose 196, lactic acid 2.8, calcium 10.3 , magnesium 1.2. Total bili 0.8, AST 22, ALT 18, alk phos 68. Troponin 0.01, BNP greater than 1300. Albumin 2.8. TSH 2.92. Urinalysis: 1+ protein, 3+ leukocyte esterase, 3+ wbc, 3+ rbc. Serum alcohol less than 10. Imaging: CT brain showed no acute process. Moderate chronic small vessel ischemic disease, likely mild cerebral volume loss. Chest x-ray demonstrated no acute process. EKG demonstrated sinus bradycardia, rate 50. Right bundle-branch block, unchanged from prior. No ST elevations or depressions. ASSESSMENT AND PLAN: John Tong is an 79-year-old male with extensive past medical history including many confirmed and hypothetical conditions including peripheral vascular disease, secondary adrenal insufficiency, and orthostatic hypotension, presenting with a syncopal event on the toilet and elevated BNP greater than 1300, much greater than his prior of 249 back a year ago. He denies any chest pain or shortness of breath. He has been feeling weak and is on prophylactic by now vancomycin for a recent C. diff infection. He did have some mushy stools and I will repeat C. diff given his fecal incontinence since then, though I doubt this is his active primary issue. We will get more importantly an echocardiogram, repeat his troponin and lactic acid now, get him to work with Physical Therapy, continue his orthostatic hypotension medication of fludrocortisone 1 mg daily. Of note, his sildenafil which he is on since December or January can cause hypotension and we will hold that for now. Also, he is profoundly hypomagnesemic and he was actually worked up 2 months ago for that and there was recommendation at that time to stop his PPI, though he has continued to be on it as an outpatient, and also start magnesium supplement which he does not seem to be on. He had a spot magnesium level at that time. I am going to put in for a 24-hour magnesium collection. Give him another 3 g for a total of 4 g of magnesium now and then 800 mg magnesium p.o. daily. Of note, this may interfere with his tetracycline antibiotic. I will continue his home oxycodone, potassium supplementation, prednisone, salt tabs, Proscar, Plavix, Lipitor. Dr. Castillo will be taking over the case tomorrow. He is a DNR/DNI. Put him on Lovenox for DVT prophylaxis. [id number]/[facility] #: [id number] [facility]
[2019-08-18] MEDS: Potassium Chlor TAB* 20 MEQ TAB.ER PO SCH (19:48)
[2019-08-18] MEDS: Atorvastatin* 40 MG TAB PO SCH (19:49)
[2019-08-18] MEDS: oxyCODONE TAB* 5 MG TAB PO PRN ×2 (19:49→23:55)
[2019-08-18] MEDS: Fludrocortisone Acetate TAB* 0.1 MG PO SCH (19:49)
[2019-08-18] MEDS: Sodium Chloride TAB* 1 GM PO SCH (22:10)
[2019-08-18] MEDS: Gabapentin CAP(*) 300 MG PO SCH (22:10)
[2019-08-19] MEDS ORDERED: Perflutren Lipid Microsphere* 3 ML VIAL ONE (08:40)
[2019-08-19] MEDS ORDERED: Omeprazole CAP (NF) 20 MG CAP.DR PO SCH (09:00)
[2019-08-19] MEDS: DOXYcycline CAP(*) 100 MG PO SCH ×2 (09:23→21:13)
[2019-08-19] MEDS: Magnesium Oxide TAB* 400 MG PO SCH (09:23)
[2019-08-19] MEDS: predniSONE TAB* 5 MG PO SCH (09:23)
[2019-08-19] MEDS: Fludrocortisone Acetate TAB* 0.1 MG PO SCH (09:24)
[2019-08-19] MEDS: Gabapentin CAP(*) 300 MG PO SCH ×2 (09:25→21:12)
[2019-08-19] MEDS: levETIRAcetam TAB* 500 MG PO SCH ×2 (09:26→21:13)
[2019-08-19] MEDS: Potassium Chlor TAB* 10 MEQ TAB.ER PO SCH (09:26)
[2019-08-19] MEDS: Clopidogrel TAB* 75 MG PO SCH (09:27)
[2019-08-19] MEDS: Vancomycin CAP* 125 MG CAP PO SCH ×4 (09:28→21:13)
[2019-08-19] MEDS: Sodium Chloride TAB* 1 GM PO SCH ×2 (09:28→21:13)
[2019-08-19] MEDS: Neomycin/Polym/Bacit TOP OINT* 15 GM TOPICAL SCH (09:29)
[2019-08-19] MEDS: FINASTERIDE 1 MG PO SCH (09:29)
[2019-08-19 10:01] LABS: ABS Monocytes 0.7 10^3/ul (0-0.8); ABS Neutrophils 2.4 10^3/ul (1.5-7.7); Eosinophil % 0.7 %; Hematocrit 31 % (42-52); Hemoglobin 10.5 g/dL (14.0-18.0); Lymphocyte % 24.7 %; Mean Corpuscular HGB Conc 34 g/dL (31-36); Mean Corpuscular Hemoglobin 28 pg (27-31); Mean Corpuscular Volume 84 fL (80-94); Mean Platelet Volume 5.9 fL (7.4-10.4); Nucleated Red Blood Cells % 0.2; Platelet Count 173 10^3/uL (150-450); Red Blood Count 3.71 10^6 /uL (4.18-5.48); Red Cell Distribution Width 15 % (10-15); White Blood Count 4.2 10^3/uL (3.5-10.8)
[2019-08-19 10:17] LABS: BUN/Creatinine Ratio 13.8 (8-20); Calcium 9.7 mg/dL (8.6-10.3); EGFR African American 102.2 (>60); EGFR Non-African American 84.4 (>60); Potassium 3.5 mmol/L (3.5-5.0)
--- NOTE | 2019-08-19 10:17 | ECHO ---
*[facility]* [place] [address] Fax #: [phone] Transthoracic Echocardiogram Patient: John Tong : 1940 Study Date: 08/19/2019 Age: 79 Gender: M HR: 45 bpm Height: 72 in /182.9 cm BSA: 1.82 m^2 Weight: 145.7 lb /66.2 kg BMI: 19.8 kg/m^2 *Cleaner Window: * Sandra Myers RDCS RN *Referring Physician: * Fox Deleon *Reading Physician: * Trevor Deluna MD Indications: Congestive Heart Failure. Syncope. History: Peripheral vascular disease. Risk factors: Hypertension. Dyslipidemia. Conclusions Summary: - Left ventricle: Systolic function is normal. The estimated ejection fraction is 55-60%. Wall motion is normal; there are no regional wall motion abnormalities. - Left atrium: The atrium is moderately to severely dilated. - Mitral valve: There is moderate regurgitation. There are 2 jets seen. - Aortic valve: There is no evidence of stenosis. There is trace to mild regurgitation. - Tricuspid valve: There is mild regurgitation. - Pulmonary arteries: Systolic pressure is within the normal range, estimated to be 28 mm Hg. - Study data: No prior study is available for comparison. Study data: Transthoracic echocardiogram. Procedure: Transthoracic echocardiography was performed. Image quality was fair. Intravenous Definity 4 ml was administered by Mk Myers RN, RDCS to enhance imaging. Complete 2D, spectral Doppler, and color flow Doppler. Location: Bedside. Patient status: Observation. Patient room number: 451. No prior study is available for comparison. Rhythm: Bradycardia. PVCs. Findings Left ventricle: The cavity size is normal. Wall thickness is mildly increased. Systolic function is normal. The estimated ejection fraction is 55-60%. Wall motion is normal; there are no regional wall motion abnormalities. There is no consistent Doppler evidence of clinically significant diastolic dysfunction. Right ventricle: The cavity size is normal. Systolic function is normal. Left atrium: The atrium is moderately to severely dilated. Right atrium: The atrium is mildly to moderately dilated. Mitral valve: The leaflets are mildly thickened. There is no evidence of stenosis. There is moderate regurgitation. There are 2 jets seen. Aortic valve: The valve is trileaflet. The leaflets are mildly thickened. There is no evidence of stenosis. There is trace to mild regurgitation. Tricuspid valve: The valve is structurally normal. There is no evidence of stenosis. There is mild regurgitation. Pulmonic valve: The leaflets are normal thickness. There is no evidence of stenosis. There is trace regurgitation. Aorta: Aortic root: The aortic root is mildly dilated at 4.2 cm. Ascending aorta: The ascending aorta is mildly dilated at 3.6 cm. Aortic arch: The aortic arch is not dilated. Pericardium: There is no pericardial effusion. Pulmonary arteries: The main pulmonary artery is normal-sized. Systolic pressure is within the normal range, estimated to be 28 mm Hg. Systemic veins: Inferior vena cava: The vessel is normal in size. There is (>= 50%) respiratory change in the IVC dimension. Measurements Left ventricle Value Ref Aortic valve Value Ref RADHA, LAX 4.4 cm 4.2 - Peak v, S 1.03 m/sec ----- 5.8 VTI, S 26.3 cm ----- ESD, LAX 3.1 cm 2.5 - Mean grad, S 2.5 mm Hg ----- 4.0 Peak grad, S 4.2 mm Hg ----- FS, LAX 28 % 25 - 43 LVOT/AV, VTI ratio 0.65 ----- PW, ED 1.0 cm 0.6 - 1.0 Mitral valve Value Ref IVS/PW, ED 1.28 -------- Peak E 0.59 m/sec ----- E', lat kim, TDI (L) 8.0 cm/sec >=10.0 Peak A 0.72 m/sec -- --- E/e', lat kim, TDI 7 -------- Decel time 436 ms ----- E', med kim, TDI (L) 6.0 cm/sec >=7.0 Peak E/A ratio 0.81 -- --- E/e', med kim, TDI 10 -------- E', avg, TDI 7.0 cm/sec -------- Pulmonic valve Value Ref E/e', avg, TDI 8 <=14 Peak v, S 0.63 m/sec -- --- Peak grad, S 1.6 mm Hg ----- LVOT Value Ref Peak jose l, S 0.69 m/sec -------- Tricuspid valve Value Ref VTI, S 17.1 cm -------- TR peak v 2.49 m/sec <=2.8 Peak grad, S 2 mm Hg -------- Peak RV-RA grad, S 25 mm Hg ----- Mean grad, S 1 mm Hg -------- Aortic root Value Ref Ventricular septum Value Ref Root diam (H) 4.2 cm <4.0 IVS, ED (H) 1.3 cm 0.6 - 1.0 Ascending aorta Value Ref AAo AP diam, S 3.6 cm ----- Right ventricle Value Ref RADHA minor ax, A4C (H) 4.0 cm 1.9 - Aortic arch Value Ref mid 3.5 Arch diam 2.6 cm ----- Left atrium Value Ref Decending aorta Value Ref LA ID 3.6 cm -------- Antonio peak jose l 0.35 m/sec ----- SI dim ES, LAX 3.6 cm -------- ML dim, A4C 5.6 cm -------- Inferior vena cava Value Ref SI dim, A4C 5.2 cm -------- Diam 1.7 cm ----- Vol, ES, 2-p 87 ml -------- Vol/bsa, ES, 2-p (H) 48 ml/m^2 16 - 34 Right atrium Value Ref SI dim, ES (H) 5.5 cm 3.4 - 5.3 ML dim, ES, A4C (H) 5.0 cm 2.6 - 4.4 Legend: (L) and (H) ash values outside specified reference range. Prepared and electronically signed by Trevor Deluna MD 08/19/2019 10:16
[2019-08-19 10:59] LABS: Magnesium 1.6 mg/dL (1.9-2.7)
[2019-08-19] MEDS: oxyCODONE TAB* 5 MG TAB PO PRN ×2 (12:19→18:01)
[2019-08-19] MEDS: Enoxaparin(*) 40 MG/0.4 ML SYR SUBCUT SCH (17:29)
[2019-08-19] MEDS: Potassium Chlor TAB* 20 MEQ TAB.ER PO SCH (21:13)
[2019-08-19] MEDS: Atorvastatin* 40 MG TAB PO SCH (21:13)
[2019-08-20 08:05] LABS: ABS Basophils 0.1 10^3/ul (0-0.2); ABS Eosinophils 0.1 10^3/ul (0-0.6); ABS Lymphocytes 1.4 10^3/ul (1.0-4.8); ABS Monocytes 0.9 10^3/ul (0-0.8); ABS Neutrophils 2.3 10^3/ul (1.5-7.7); Eosinophil % 1.3 %; Hematocrit 28 % (42-52); Hemoglobin 9.8 g/dL (14.0-18.0); Lymphocyte % 29.5 %; Mean Corpuscular HGB Conc 35 g/dL (31-36); Mean Corpuscular Hemoglobin 29 pg (27-31); Mean Corpuscular Volume 83 fL (80-94); Platelet Count 163 10^3/uL (150-450); Red Blood Count 3.36 10^6 /uL (4.18-5.48); Red Cell Distribution Width 15 % (10-15); White Blood Count 4.7 10^3/uL (3.5-10.8)
[2019-08-20 08:19] LABS: BUN/Creatinine Ratio 19.5 (8-20); C Reactive Protein 12.48 mg/L (<8.01); Calcium 9.7 mg/dL (8.6-10.3); EGFR African American 102.2 (>60); EGFR Non-African American 84.4 (>60); Potassium 3.4 mmol/L (3.5-5.0)
[2019-08-20] MEDS: FINASTERIDE 1 MG PO SCH (08:42)
[2019-08-20] MEDS: Magnesium Oxide TAB* 400 MG PO SCH (08:51)
[2019-08-20] MEDS: Vancomycin CAP* 125 MG CAP PO SCH ×4 (08:51→20:29)
[2019-08-20] MEDS: Fludrocortisone Acetate TAB* 0.1 MG PO SCH (08:51)
[2019-08-20] MEDS: Neomycin/Polym/Bacit TOP OINT* 15 GM TOPICAL SCH (08:51)
[2019-08-20] MEDS: levETIRAcetam TAB* 500 MG PO SCH ×2 (08:52→20:29)
[2019-08-20] MEDS: DOXYcycline CAP(*) 100 MG PO SCH ×2 (08:52→20:29)
[2019-08-20] MEDS: Sodium Chloride TAB* 1 GM PO SCH ×2 (08:52→20:29)
[2019-08-20] MEDS: Potassium Chlor TAB* 10 MEQ TAB.ER PO SCH (08:52)
[2019-08-20] MEDS: oxyCODONE TAB* 5 MG TAB PO PRN ×3 (08:52→20:27)
[2019-08-20] MEDS: predniSONE TAB* 5 MG PO SCH (08:52)
[2019-08-20] MEDS: Gabapentin CAP(*) 300 MG PO SCH ×2 (08:52→20:29)
[2019-08-20] MEDS: Clopidogrel TAB* 75 MG PO SCH (08:52)
[2019-08-20 10:21] LABS: Magnesium 1.4 mg/dL (1.9-2.7)
[2019-08-20] MEDS ORDERED: Potassium Chlor TAB* 20 MEQ TAB.ER PO ONE (16:03)
[2019-08-20 16:35] LABS: Hematocrit 29 % (42-52); Hemoglobin 9.7 g/dL (14.0-18.0); Mean Corpuscular HGB Conc 34 g/dL (31-36); Mean Corpuscular Hemoglobin 28 pg (27-31); Mean Corpuscular Volume 84 fL (80-94); Platelet Count 176 10^3/uL (150-450); Red Blood Count 3.45 10^6 /uL (4.18-5.48); Red Cell Distribution Width 15 % (10-15); White Blood Count 3.9 10^3/uL (3.5-10.8)
[2019-08-20 16:52] LABS: BUN/Creatinine Ratio 20.2 (8-20); EGFR African American 99.5 (>60); EGFR Non-African American 82.2 (>60); Potassium 3.9 mmol/L (3.5-5.0)
[2019-08-20 17:27] LABS: ABS Monocytes 0.8 10^3/ul (0-0.8); ABS Neutrophils 2.1 10^3/ul (1.5-7.7); Eosinophil % 0.2 %; Lymphocyte % 25.9 %; Nucleated Red Blood Cells % 0.1
[2019-08-20] MEDS: Enoxaparin(*) 40 MG/0.4 ML SYR SUBCUT SCH (17:32)
[2019-08-20] MEDS: Magnesium Sulfate IV* 3 GM in NS 0.9% 100 ML* 100 ML IVPB ONE (17:32)
[2019-08-20] MEDS: Potassium Chlor TAB* 20 MEQ TAB.ER PO SCH (20:29)
[2019-08-20] MEDS: Atorvastatin* 40 MG TAB PO SCH (20:29)
[2019-08-21 06:55] LABS: Magnesium 1.8 mg/dL (1.9-2.7)
[2019-08-21] MEDS: Gabapentin CAP(*) 300 MG PO SCH ×2 (09:11→20:33)
[2019-08-21] MEDS: Potassium Chlor TAB* 10 MEQ TAB.ER PO SCH (09:11)
[2019-08-21] MEDS: Clopidogrel TAB* 75 MG PO SCH (09:11)
[2019-08-21] MEDS: Magnesium Oxide TAB* 400 MG PO SCH (09:12)
[2019-08-21] MEDS: DOXYcycline CAP(*) 100 MG PO SCH ×2 (09:12→20:33)
[2019-08-21] MEDS: Fludrocortisone Acetate TAB* 0.1 MG PO SCH (09:13)
[2019-08-21] MEDS: predniSONE TAB* 5 MG PO SCH (09:13)
[2019-08-21] MEDS: levETIRAcetam TAB* 500 MG PO SCH ×2 (09:13→20:36)
[2019-08-21] MEDS: oxyCODONE TAB* 5 MG TAB PO PRN ×2 (09:13→14:51)
[2019-08-21] MEDS: Vancomycin CAP* 125 MG CAP PO SCH ×4 (09:19→20:36)
[2019-08-21] MEDS: Sodium Chloride TAB* 1 GM PO SCH ×2 (09:19→20:36)
[2019-08-21] MEDS: Neomycin/Polym/Bacit TOP OINT* 15 GM TOPICAL SCH (09:19)
[2019-08-21] MEDS: FINASTERIDE 1 MG PO SCH (09:25)
[2019-08-21] MEDS ORDERED: Magnesium Sulfate 2 GM IV* 2 GM/50 ML BAG IVPB ONE (11:12)
[2019-08-21 11:52] LABS: Calcium 9.6 mg/dL (8.6-10.3); Potassium 4.1 mmol/L (3.5-5.0)
[2019-08-21 11:57] LABS: BUN/Creatinine Ratio 18.3 (8-20); C Reactive Protein 9.92 mg/L (<8.01); EGFR African American 94.6 (>60); EGFR Non-African American 78.2 (>60)
[2019-08-21] MEDS: Enoxaparin(*) 40 MG/0.4 ML SYR SUBCUT SCH (16:00)
[2019-08-21 17:37] LABS: Urine Collection Duration 24 h
[2019-08-21] MEDS: Atorvastatin* 40 MG TAB PO SCH (20:32)
[2019-08-21] MEDS: Potassium Chlor TAB* 20 MEQ TAB.ER PO SCH (20:33)
[2019-08-22 06:08] LABS: Hematocrit 28 % (42-52); Hemoglobin 9.3 g/dL (14.0-18.0); Mean Corpuscular HGB Conc 34 g/dL (31-36); Mean Corpuscular Hemoglobin 29 pg (27-31); Mean Corpuscular Volume 84 fL (80-94); Mean Platelet Volume 6.1 fL (7.4-10.4); Platelet Count 162 10^3/uL (150-450); Red Blood Count 3.25 10^6 /uL (4.18-5.48); Red Cell Distribution Width 15 % (10-15); White Blood Count 4.5 10^3/uL (3.5-10.8)
[2019-08-22 06:40] LABS: BUN/Creatinine Ratio 17.4 (8-20); C Reactive Protein 9.98 mg/L (<8.01); Calcium 9.7 mg/dL (8.6-10.3); EGFR African American 95.8 (>60); EGFR Non-African American 79.2 (>60); Potassium 4.1 mmol/L (3.5-5.0)
[2019-08-22 07:16] LABS: ABS Basophils 0.1 10^3/ul (0-0.2); ABS Eosinophils 0.1 10^3/ul (0-0.6); ABS Lymphocytes 1.4 10^3/ul (1.0-4.8); Eosinophil % 1.5 %; Lymphocyte % 31.9 %; Nucleated Red Blood Cells % 0.2
[2019-08-22] MEDS: Magnesium Oxide TAB* 400 MG PO SCH (08:18)
[2019-08-22] MEDS: Gabapentin CAP(*) 300 MG PO SCH (08:18)
[2019-08-22] MEDS: Clopidogrel TAB* 75 MG PO SCH (08:18)
[2019-08-22] MEDS: predniSONE TAB* 5 MG PO SCH (08:18)
[2019-08-22] MEDS: Sodium Chloride TAB* 1 GM PO SCH (08:18)
[2019-08-22] MEDS: levETIRAcetam TAB* 500 MG PO SCH (08:18)
[2019-08-22] MEDS: Fludrocortisone Acetate TAB* 0.1 MG PO SCH (08:18)
[2019-08-22] MEDS: Potassium Chlor TAB* 10 MEQ TAB.ER PO SCH (08:18)
[2019-08-22] MEDS: DOXYcycline CAP(*) 100 MG PO SCH (08:18)
[2019-08-22] MEDS: FINASTERIDE 1 MG PO SCH (08:19)
[2019-08-22] MEDS: Vancomycin CAP* 125 MG CAP PO SCH (08:19)
[2019-08-22] MEDS: Neomycin/Polym/Bacit TOP OINT* 15 GM TOPICAL SCH (08:21)
[2019-08-22] MEDS ORDERED: Acetaminophen TAB* 325 MG PO PRN (08:55)
[2019-08-22 10:34] VITALS: BP 148/64
== END 2019-08-22 12:10 | disposition home health service (06) | DRG 312 ==
LOC: ED 10:42 → MEDTELE 14:33 → OBSVTOIN 08-19 10:35
PROVIDERS: ADMIT Internal Medicine; ATTEND Internal Medicine Geriatric Medicine
DX: R55 Syncope and collapse (principal); E27.40 Unspecified adrenocortical insufficiency; E87.2 Acidosis; A04.72 Enterocolitis due to Clostridium difficile, not specified as recurrent; I10 Essential (primary) hypertension; J30.2 Other seasonal allergic rhinitis; Z66 Do not resuscitate; N40.0 Benign prostatic hyperplasia without lower urinary tract symptoms; M06.9 Rheumatoid arthritis, unspecified; M35.3 Polymyalgia rheumatica; M81.0 Age-related osteoporosis without current pathological fracture; H40.9 Unspecified glaucoma; K44.9 Diaphragmatic hernia without obstruction or gangrene; R40.2362 Coma scale, best motor response, obeys commands, at arrival to emergency department; R40.2142 Coma scale, eyes open, spontaneous, at arrival to emergency department; R40.2252 Coma scale, best verbal response, oriented, at arrival to emergency department; I45.10 Unspecified right bundle-branch block; G40.909 Epilepsy, unspecified, not intractable, without status epilepticus; L40.9 Psoriasis, unspecified; K21.9 Gastro-esophageal reflux disease without esophagitis; E87.6 Hypokalemia; D64.9 Anemia, unspecified; I73.89 Other specified peripheral vascular diseases; E83.42 Hypomagnesemia; L97.529 Non-pressure chronic ulcer of other part of left foot with unspecified severity; Y90.0 Blood alcohol level of less than 20 mg/100 ml; I95.1 Orthostatic hypotension; R15.9 Full incontinence of feces; Z89.511 Acquired absence of right leg below knee; Z88.8 Allergy status to other drugs, medicaments and biological substances; Z88.1 Allergy status to other antibiotic agents; Z88.5 Allergy status to narcotic agent; Z88.2 Allergy status to sulfonamides; Z98.42 Cataract extraction status, left eye; Z98.41 Cataract extraction status, right eye; Z72.89 Other problems related to lifestyle; Z87.891 Personal history of nicotine dependence; Z85.72 Personal history of non-Hodgkin lymphomas; Z86.19 Personal history of other infectious and parasitic diseases
CPT/HCPCS: 36415; 70450; 71046; 80048; 80053; 80320; 81003; 81015; 83605; 83735; 83880; 84100; 84443; 84484; 85025; 85060; 85610; 85730; 86140; 87070; 87077; 87086; 87106; 87205; 87493; 87640; 87641; 93005; 93306; 96365; 99283; A9270-GY; C8929; G0378; G0480; G8978-GP-CI; G8978-GP-CJ; G8979-GP-CI; G8980-GP-CI; J1650; J3475; J7512

== ENCOUNTER 2019-12-09 11:40 | Emergency (ER) | payer MEDICARE ==
--- OUTSIDE RECORDS SUMMARY | 2019-12-09 11:53 | XMS REPORT ---
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, disease, [id number] unspecified unspecified 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 without angina angina pectoris pectoris Essential Essential Diagnosis Active Adry (primary) (primary) 1 Ingrahm hypertensio hypertensio [id number] n n 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 Ingrahm [id number] Enterocolit Enterocolit Diagnosis Active 2018-10 Adry is due to is due to 0-13 Ingrahm Clostridium Clostridium [id number] difficile, difficile, not not specified specified as as recurrent recurrent Raynaud's Raynaud's Diagnosis Active Adry syndrome syndrome Ingrahm without without [id number] gangrene gangrene 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, lymphoma, 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 unspecified unspecified , , unspecified unspecified site site 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) [id number] (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, seizures, not not intractable intractable , without , without status status epilepticus epilepticus Radiculopat Radiculopat Diagnosis Active Adry hy, lumbar hy, lumbar Ingrahm region region [id number] 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 [id number] 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 [id number] diseases diseases classified classified elsewhere elsewhere Benign Benign Diagnosis Active Adry prostatic prostatic Ingrahm hyperplasia hyperplasia [id number] without without lower lower urinary urinary tract tract symptoms symptoms 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 cy 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 [id number] unspecified unspecified sites in sites in spine spine 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, psoriasis, [id number] unspecified unspecified Other Other Diagnosis Active Adry dysphagia dysphagia Ingrahm [id number] 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 [id number] n n 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 s with s with [id number] current current pathologica pathologica l fracture, l fracture, vertebra(e) vertebra(e) , , subsequent subsequent encounter encounter for for fracture fracture with with routine routine healing healing superintendent terminal [facility] Diagnosis Active Adry (current) (current) Ingrahm use of use of [id number] antithrombo antithrombo tics/antipl tics/antipl atelets atelets superintendent terminal [facility] Diagnosis Active Adry (current) (current) Ingrahm use of use of [id number] antibiotics antibiotics [facility] Diagnosis Active Adry (current) (current) Ingrahm use of use of [id number] systemic systemic steroids steroids superintendent terminal superintendent terminal Diagnosis Active Adry (current) (current) Ingrahm use of use of [id number] opiate opiate analgesic analgesic 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 [id number] below knee below knee Personal Personal Diagnosis Active Adry history of history of Ingrahm nicotine nicotine [id number] dependence dependence Pain frequent Pain Mgmt Resolve 2018-102019-07-18 Grace pain d 0-01 13:00:00 (Pennie) 10:30: Mondragon 00 [id number] Cardio edema Cardiovasc Resolve 2018-102019-07-24 Grace ular d 0-01 09:00:00 (Pennie) 10:30: Mondragon 00 [id number] Respiratory dyspnea Respirator Resolve 2018-102019-07-24 Grace present y d 0-01 09:00:00 (Pennie) 10:30: Mondragon 00 [id number] Endo/David anti-coagul Endo/David Resolve 2018-102019-07-18 Grace ation d 0-01 13:00:00 (Pennie) therapy 10:30: Mondragon [id number] Integument skin Integument Resolve 2018-102019-07-24 Grace integrity d 0-01 09:00:00 (Pennie) risk 10:30: Mondragon [id number] Elimination urinary Eliminatio Resolve 2018-102019-07-24 Grace incontinenc n d 0-01 09:00:00 (Pennie) e 10:30: Mondragon 00 [id number] Neuro confusion Neuro/Emot Resolve 2018-102019-09-26 Grace present ion d 0-01 10:25:00 (Pennie) 10:30: Mondragon [id number] Neuro depressive Neuro/Emot Resolve 2018-102019-09-26 Grace feelings ion d 0-01 10:25:00 (Pennie) present 10:30: Mondragon [id number] Neuro impaired Neuro/Emot Resolve 2018-102019-09-26 Grace decision-ma ion d 0-01 10:25:00 (Pennie) guanako 10:30: [id number] Neuro memory Neuro/Emot Resolve 2018-102019-09-26 Graec deficit ion d 0-01 10:25:00 (Pennie) needing 10:30: Mondragon supervision 00 [id number] Activity ADL Activity Resolve 2018-102019-07-24 Grace assistance d 0-01 09:00:00 (Pennie) required 10:30: Mondragon 00 [id number] Activity self-care Activity Resolve 2018-102019-07-24 Grace deficit d 0-01 09:00:00 (Pennie) 10:30: Mondragon 00 [id number] Safety fall risk Safety Resolve 2018-102019-10-03 Grace factor d 0-01 09:30:00 (Pennie) present 10:30: Mondragon [id number] Safety cannot be Safety Resolve 2018-102019-10-03 Grace left alone d 0-01 09:30:00 (Pennie) 10:30: Mondragon [id number] Safety risk for Safety Resolve 2018-102019-10-03 Grace hospitaliza d 0-01 09:30:00 (Pennie) tion 10:30: Mondragon [id number] Medication oral med Meds Resolve 2018-102019-07-18 Grace assistance d 0-01 13:00:00 (Pennie) required 10:30: Mondragon [id number] Musculoskel transfer Musculoske Resolve 2018-102019-07-24 Grace etal assistance letal d 0-01 09:00:00 (Pennie) required 10:30: Mondragon [id number] Musculoskel requires Musculoske Resolve 2018-102019-07-24 Grace etal human letal d 0-01 09:00:00 (Pennie) assist to 10:30: Mondragon leave home 00 [id number] Nutrition nutritional Nutrition Resolve 2018-102019-07-18 Bimal restriction d 0-02 13:00:00 Anguish s 13:46: [id number] 00 Safety structural Safety Resolve 2018-102019-07-24 Bimal barriers d 0-02 09:00:00 Anguish present 13:46: [id number] 00 Safety can be left Safety Resolve 2018-102019-10-03 Bimal alone for d 0-02 09:30:00 Anguish only short 13:46: [id number] periods 00 Balance/End balance/workers compensation coordinator PT/OT: Active 2018-10 Bimal urance rdination Balance/En 0-02 Anguish deficit durance 13:46: [id number] 00 Balance/End endurance PT/OT: Active 2018-10 Bimal urance deficit Balance/En 0-02 Anguish durance 13:46: [id number] 00 Equipment prosthesis PT/OT: Active 2018-10 Bimal Mgmt mgmt Equipment 0-02 Anguish deficit Mgmt 13:46: [id number] 00 Gait/Locomo gait PT/OT: Active 2018-10 Bimal tion deficit Gait/Locom 0-02 Anguish problems otion 13:46: [id number] 00 Elimination bowel Eliminatio Resolve 2018-102019-07-24 Adry incontinenc n d 0-15 09:00:00 Ingrahm e 10:00: [id number] 00 Gait/Locomo gait PT/OT: Active 2018-10 Bimal tion assistive Gait/Locom 0-18 Anguish problems device otion 10:20: [id number] present 00 Nutrition nutritional Nutrition Resolve 2018-102019-07-24 Adry restriction d 0-22 09:00:00 Ingrahm s 10:00: [id number] 00 Nutrition nutritional Nutrition Resolve 2018-102019-08-14 Adry restriction d 0-29 09:59:00 Ingrahm s 08:46: [id number] 00 Integument skin Integument Active 2018-10 Velvet integrity 1 Carrier RN risk 12:00: 00 Medication oral med Meds Resolve 2018-102019-09-02 Velvet assistance d 1 09:53:00 Carrier RN required 12:00: 00 Musculoskel transfer Musculoske Active 2018-10 Velvet etal assistance letal 10-23 Carrier RN required 12:00: 00 Musculoskel requires Musculoske Active 2018-10 Velvet etal human letal 1- Carrier RN assist to 12:00: leave home 00 Integument pressure Integument Resolve 2018-102019-10-03 Adry ulcer d 2-03 09:30:00 Ingrahm present 09:53: [id number] 00 Integument surgical Integument Resolve 2018-102019-10-03 Adry wound d 2-03 09:30:00 Ingrahm present 09:53: [id number] 00 Integument stasis Integument Resolve 2018-102019-10-03 Maylin ulcer d 2-03 09:30:00 Jefferson present 09:53: [id number] 00 Bed transfer PT/OT: Bed Active 2018-10 Bimal Mobility/Tr deficit: Mobility/T 2-03 Anguish ansfer standing ransfer 11:50: [id number] pivot 00 Bed transfer PT/OT: Bed Active 2018-10 Bimal Mobility/Tr deficit: Mobility/T 2-03 Anguish ansfer toilet/comm ransfer 11:50: [id number] ode 00 Bed transfer PT/OT: Bed Active 2018-10 Bimal Mobility/Tr deficit: Mobility/T 2-03 Anguish ansfer shower/tub ransfer 11:50: [id number] 00 Activity self-care Activity Resolve 2019-10-17 Adry deficit d 10-03 10:00:00 Ingrahm 09:30: [id number] 00 Activity ADL Activity Resolve 2019-10-17 Bimal assistance d 10-07 10:00:00 Anguish required 10:38: [id number] 00 Safety risk for Safety Active Bimal hospitaliza 10-07 Anguish tion 10:38: [id number] 00 Safety can be left Safety Active Adry alone for 10-10 Ingrahm only short 11:20: [id number] periods 00 Activity ADL Activity Active Maylin assistance 10-24 Jefferson required 09:40: [id number] 00 Activity self-care Activity Active Adry deficit 10-24 Ingrahm 09:40: [id number] 00 Safety fall risk Safety Active Adry factor 10-24 Ingrahm present 09:40: [id number] 00 Allergies, Adverse Reactions, Alerts Allergy Name Allergy Status Severity Reaction(s) Onset Inactive Treating Comments Type Date Date Clinician Celebrex Medication Active Unknown Reaction Liliya Beam Name ID Unknown 02-28 Lotensin Medication Active Unknown Reaction Liliya Beam Name ID Unknown 02-28 Fosamax Medication Active Unknown Reaction Liliya Beam Name ID Unknown 02-28 Dyazide Medication Active Unknown Reaction Liliya Beam Name ID Unknown 02-28 morphine Base Active Unknown Reaction Liliya Beam Ingredient Unknown 02-28 methotrexate Base Active Unknown Reaction Liliya Beam Ingredient Unknown 02-28 benazepril Base Active Unknown Reaction Liliya Beam Ingredient Unknown 02-28 clindamycin Base Active Unknown Reaction Liliya Beam Ingredient Unknown 02-28 hydrochlorot Base Active Unknown Reaction Liliya Beam hiazide Ingredient Unknown 02-28 azathioprine Base Active Unknown Reaction Liliya Beam Ingredient Unknown 31 Medications Ordered Filled Start Stop Current Ordering Indication Dosage Frequency Signature Comments Components Medication Medication Date Date Medication? Clinician (SIG) Name Name clopidogrel clopidogrel 2018-10 No Castillo Unknown Unknown 75 mg 75 mg 0 May LANDAVERDE tablet tablet levETIRAcet levETIRAcet 2018-10 No Castillo Unknown Unknown am 500 mg am 500 mg 0 MD,May tablet tablet demeclocycl demeclocycl No Castillo Unknown Unknown ine 150 mg ine 150 mg MD,May tablet tablet predniSONE predniSONE 2018-10 No Castillo Unknown Unknown 5 mg tablet 5 mg tablet 0- MD,May gabapentin gabapentin 2018-10- No Castillo Unknown Unknown 600 mg 600 mg 008-23 MD,May tablet tablet latanoprost latanoprost 2018-10 No Castillo Unknown Unknown (PF) 0.005 (PF) 0.005 10-23 MD,May % eye drops % eye drops oxyCODONE 5 oxyCODONE 5 2018-10 No Castillo Unknown Unknown mg tablet mg tablet 10-23 MD,May albuterol albuterol 2018-10- No Castillo Unknown Unknown sulfate 2.5 sulfate 2.5 10-23 MD,May mg/3 mL mg/3 mL (0.083 %) (0.083 %) solution solution for for nebulizatio nebulizatio n n sodium sodium 2018-10 No Castillo Unknown Unknown chloride 1 chloride 1 08-23 MD,May gram tablet gram tablet acetaminoph acetaminoph 2018-10 No Castillo Unknown Unknown en 325 mg en 325 mg 10-23 MD,May capsule capsule sildenafil sildenafil No Castillo Unknown Unknown (pulmonary (pulmonary ,May hypertensio hypertensio n) 20 mg n) 20 mg tablet tablet fludrocorti fludrocorti 2018-10 No Castillo Unknown Unknown sone 0.1 mg sone 0.1 mg 0 MD,May tablet tablet atorvastati atorvastati 2018-10 No Castillo Unknown Unknown n 40 mg n 40 mg 10-23 MD,May tablet tablet Calcium 600 Calcium 600 No Castillo Unknown Unknown + D(3) 600 + D(3) 600 MD,May mg mg calcium-200 calcium-200 unit unit capsule capsule Centrum Centrum 2018-10 No Castillo Unknown Unknown Silver Men Silver Men 10-23 MD,May 300 mcg-600 300 mcg-600 mcg-300 mcg mcg-300 mcg tablet tablet finasteride finasteride 2018-10 No Castillo Unknown Unknown 5 mg tablet 5 mg tablet 0 MD,May furosemide furosemide No Castillo Unknown Unknown 20 mg 20 mg MD,May tablet tablet risedronate risedronate No Castillo Unknown Unknown 35 mg 35 mg MD,May tablet tablet tamsulosin tamsulosin No Castillo Unknown Unknown 0.4 mg 0.4 mg MD,May capsule capsule sildenafil sildenafil 2018-10 No Castillo Unknown Unknown (pulmonary (pulmonary ,Amy hypertensio hypertensio n) 20 mg n) 20 mg tablet tablet magnesium magnesium 2018-10- No Castillo Unknown Unknown 250 mg (as 250 mg (as 007-15 ,May magnesium magnesium oxide) oxide) tablet tablet potassium potassium 2018-10- No Castillo Unknown Unknown chloride ER chloride ER 08-23 MD,May 20 mEq 20 mEq tablet,exte tablet,exte nded nded release(par release(par t/cryst) t/cryst) vancomycin vancomycin 2018-10- No Castillo Unknown Unknown 125 mg 125 mg 11-12 MD,May capsule capsule magnesium magnesium 2018-10 No Castillo Unknown Unknown 250 mg (as 250 mg (as 10-23 ,May magnesium magnesium oxide) oxide) tablet tablet potassium potassium 2018-10 No Castillo Unknown Unknown chloride ER chloride ER 10-23 MD,May 20 mEq 20 mEq tablet,exte tablet,exte nded nded release(par release(par t/cryst) t/cryst) omeprazole omeprazole 2018-10 No Castillo Unknown Unknown 20 mg 20 mg 10-23 MD,May capsule,del capsule,del ayed ayed release release doxycycline doxycycline 2018-10- No Catsillo Unknown Unknown hyclate 100 hyclate 100 10-23 MD,May mg capsule mg capsule sodium sodium 2018-10 No Castillo Unknown Unknown chloride 1 chloride 1 10-23 MD,May gram tablet gram tablet gabapentin gabapentin 2018-10 No Castillo Unknown Unknown 600 mg 600 mg 10-23 MD,May tablet tablet Vital Signs Vital Name Observation Time Observation Value Comments SYSTOLIC mm[Hg] 2019-11-28 18:10:37 124 mm[Hg] mm[Hg] Method: Sit SYSTOLIC mm[Hg] 2019-07-06 18:08:12 130 mm[Hg] mm[Hg] Method: Stand DIASTOLIC mm[Hg] 2019-11-28 18:10:37 76 mm[Hg] mm[Hg] Method: Sit DIASTOLIC mm[Hg] 2019-07-06 18:08:12 90 mm[Hg] mm[Hg] Method: Stand PULSE 2019-11-28 18:10:37 63 /min /min RESP RATE 2019-11-30 18:10:39 16 /min /min TEMP 2019-11-30 18:10:39 97.6 [degF] Procedures This patient has no known procedures. Results This patient has no known results.
--- OUTSIDE RECORDS SUMMARY | 2019-12-09 11:53 | XMS REPORT ---
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, disease, [id number] unspecified unspecified 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 pectoris Essential Essential Diagnosis Active Adry (primary) (primary) 1 Ingrahm hypertensio hypertensio [id number] n n 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 Ingrahm [id number] Enterocolit Enterocolit Diagnosis Active 2018-10 Adry is due to is due to 0-13 Ingrahm Clostridium Clostridium [id number] difficile, difficile, not not specified specified as as recurrent recurrent Raynaud's Raynaud's Diagnosis Active Adry syndrome syndrome Ingrahm without without [id number] gangrene gangrene 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, lymphoma, 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 unspecified unspecified , , unspecified unspecified site site 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) [id number] (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, seizures, not not intractable intractable , without , without status status epilepticus epilepticus Radiculopat Radiculopat Diagnosis Active Adry hy, lumbar hy, lumbar Ingrahm region region [id number] 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 [id number] 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 [id number] diseases diseases classified classified elsewhere elsewhere Benign Benign Diagnosis Active Adry prostatic prostatic Ingrahm hyperplasia hyperplasia [id number] without without lower lower urinary urinary tract tract symptoms symptoms 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 cy 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 [id number] unspecified unspecified sites in sites in spine spine 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, psoriasis, [id number] unspecified unspecified Other Other Diagnosis Active Adry dysphagia dysphagia Ingrahm [id number] 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 [id number] n n 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 s with s with [id number] current current pathologica pathologica l fracture, l fracture, vertebra(e) vertebra(e) , , subsequent subsequent encounter encounter for for fracture fracture with with routine routine healing healing audience development manager MCC Diagnosis Active Adry (current) (current) Ingrahm use of use of [id number] antithrombo antithrombo tics/antipl tics/antipl atelets atelets audience development manager MCC Diagnosis Active Adry (current) (current) Ingrahm use of use of [id number] antibiotics antibiotics MCC MCC Diagnosis Active Adry (current) (current) Ingrahm use of use of [id number] systemic systemic steroids steroids audience development manager audience development manager Diagnosis Active Adry (current) (current) Ingrahm use of use of [id number] opiate opiate analgesic analgesic 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 [id number] below knee below knee Personal Personal Diagnosis Active Adry history of history of Ingrahm nicotine nicotine [id number] dependence dependence Pain frequent Pain Mgmt Resolve 2018-102019-07-18 Grace pain d 0-01 13:00:00 (Pennie) 10:30: Mondragon 00 [id number] Cardio edema Cardiovasc Resolve 2018-102019-07-24 Grace ular d 0-01 09:00:00 (Pennie) 10:30: Mondragon 00 [id number] Respiratory dyspnea Respirator Resolve 2018-102019-07-24 Grace present y d 0-01 09:00:00 (Pennie) 10:30: Mondragon 00 [id number] Endo/David anti-coagul Endo/David Resolve 2018-102019-07-18 Grace ation d 0-01 13:00:00 (Pennie) therapy 10:30: Mondragon [id number] Integument skin Integument Resolve 2018-102019-07-24 Grace integrity d 0-01 09:00:00 (Pennie) risk 10:30: Mondragon [id number] Elimination urinary Eliminatio Resolve 2018-102019-07-24 Grace incontinenc n d 0-01 09:00:00 (Pennie) e 10:30: Mondragon 00 [id number] Neuro confusion Neuro/Emot Resolve 2018-102019-09-26 Grace present ion d 0-01 10:25:00 (Pennie) 10:30: Mondragon [id number] Neuro depressive Neuro/Emot Resolve 2018-102019-09-26 Grace feelings ion d 0-01 10:25:00 (Pennie) present 10:30: Mondragon [id number] Neuro impaired Neuro/Emot Resolve 2018-102019-09-26 Grace decision-ma ion d 0-01 10:25:00 (Pennie) guanako 10:30: [id number] Neuro memory Neuro/Emot Resolve 2018-102019-09-26 Grace deficit ion d 0-01 10:25:00 (Pennie) needing 10:30: Mondragon supervision 00 [id number] Activity ADL Activity Resolve 2018-102019-07-24 Grace assistance d 0-01 09:00:00 (Pennie) required 10:30: Mondragon 00 [id number] Activity self-care Activity Resolve 2018-102019-07-24 Grace deficit d 0-01 09:00:00 (Pennie) 10:30: Mondragon 00 [id number] Safety fall risk Safety Resolve 2018-102019-10-03 Grace factor d 0-01 09:30:00 (Pennie) present 10:30: Mondragon [id number] Safety cannot be Safety Resolve 2018-102019-10-03 Grace left alone d 0-01 09:30:00 (Pennie) 10:30: Mondragon [id number] Safety risk for Safety Resolve 2018-102019-10-03 Grace hospitaliza d 0-01 09:30:00 (Pennie) tion 10:30: Mondragon [id number] Medication oral med Meds Resolve 2018-102019-07-18 Grace assistance d 0-01 13:00:00 (Pennie) required 10:30: Mondragon [id number] Musculoskel transfer Musculoske Resolve 2018-102019-07-24 Grace etal assistance letal d 0-01 09:00:00 (Pennie) required 10:30: Mondragon [id number] Musculoskel requires Musculoske Resolve 2018-102019-07-24 Grace etal human letal d 0-01 09:00:00 (Pennie) assist to 10:30: Mondragon leave home 00 [id number] Nutrition nutritional Nutrition Resolve 2018-102019-07-18 Bimal restriction d 0-02 13:00:00 Anguish s 13:46: [id number] Safety structural Safety Resolve 2018-102019-07-24 Bimal barriers d 0-02 09:00:00 Anguish present 13:46: [id number] 00 Safety can be left Safety Resolve 2018-102019-10-03 Bimal alone for d 0-02 09:30:00 Anguish only short 13:46: [id number] periods 00 Balance/End balance/entry level project coordinator PT/OT: Active 2018-10 Bimal urance rdination Balance/En 0-02 Anguish deficit durance 13:46: [id number] 00 Balance/End endurance PT/OT: Active 2018-10 Bimal urance deficit Balance/En 0-02 Anguish durance 13:46: [id number] 00 Equipment prosthesis PT/OT: Active 2018-10 Bimal Mgmt mgmt Equipment 0-02 Anguish deficit Mgmt 13:46: [id number] 00 Gait/Locomo gait PT/OT: Active 2018-10 Bimal tion deficit Gait/Locom 0-02 Anguish problems otion 13:46: [id number] 00 Elimination bowel Eliminatio Resolve 2018-102019-07-24 Adry incontinenc n d 0-15 09:00:00 Ingrahm e 10:00: [id number] 00 Gait/Locomo gait PT/OT: Active 2018-10 Bimal tion assistive Gait/Locom 0-18 Anguish problems device otion 10:20: [id number] present 00 Nutrition nutritional Nutrition Resolve 2018-102019-07-24 Adry restriction d 0-22 09:00:00 Ingrahm s 10:00: [id number] 00 Nutrition nutritional Nutrition Resolve 2018-102019-08-14 Adry restriction d 0-29 09:59:00 Ingrahm s 08:46: [id number] 00 Integument skin Integument Active 2018-10 Velvet [...] ulcer d 2-03 09:30:00 Ingrahm present 09:53: [id number] 00 Integument surgical Integument Resolve 2018-102019-10-03 Adry wound d 2-03 09:30:00 Ingrahm present 09:53: [id number] 00 Integument stasis Integument Resolve 2018-102019-10-03 Maylin ulcer d 2-03 09:30:00 Jefferson present 09:53: [id number] 00 Bed transfer PT/OT: Bed Active 2018-10 Bimal Mobility/Tr deficit: Mobility/T 2-03 Anguish ansfer standing ransfer 11:50: [id number] pivot 00 Bed transfer PT/OT: Bed Active 2018-10 Bimal Mobility/Tr deficit: Mobility/T 2-03 Anguish ansfer toilet/comm ransfer 11:50: [id number] ode 00 Bed transfer PT/OT: Bed Active 2018-10 Bimal Mobility/Tr deficit: Mobility/T 2-03 Anguish ansfer shower/tub ransfer 11:50: [id number] 00 Activity self-care Activity Resolve 2019-10-17 Adry deficit d 10-03 10:00:00 Ingrahm 09:30: [id number] 00 Activity ADL Activity Resolve 2019-10-17 Bimal assistance d 10-07 10:00:00 Anguish required 10:38: [id number] 00 Safety risk for Safety Active Bimal hospitaliza 10-07 Anguish tion 10:38: [id number] 00 Safety can be left Safety Active Adry alone for 10-10 Ingrahm only short 11:20: [id number] periods 00 Activity ADL Activity Active Maylin assistance 10-24 Jefferson required 09:40: [id number] 00 Activity self-care Activity Active Adry deficit 10-24 Ingrahm 09:40: [id number] 00 Safety fall risk Safety Active Adry factor 10-24 Ingrahm present 09:40: [id number] 00 Allergies, Adverse Reactions, Alerts Allergy Name [...] 2018-10 No Castillo Unknown Unknown (pulmonary (pulmonary ,May hypertensio hypertensio n) 20 mg n) 20 mg tablet tablet magnesium magnesium 2018-10- No Castillo Unknown Unknown 250 mg (as 250 mg (as 007-15 ,May magnesium magnesium oxide) oxide) tablet tablet potassium potassium 2018-10- No Castillo Unknown Unknown chloride ER chloride ER -15 08- MD,May 20 mEq 20 mEq tablet,exte tablet,exte [...] ayed release release doxycycline doxycycline 2018-10- No Castillo Unknown Unknown hyclate 100 hyclate 100 10-23 MD,May mg capsule mg capsule sodium sodium 2018-10 No Castillo Unknown Unknown chloride 1 chloride 1 10-23 MD,May gram tablet gram tablet gabapentin gabapentin 2018-10 No Castillo Unknown Unknown 600 mg 600 mg 10-23 MD,May tablet tablet Vital Signs Vital Name Observation Time Observation Value Comments SYSTOLIC mm[Hg] 2019-12-02 18:10:41 108 mm[Hg] mm[Hg] Method: Sit SYSTOLIC mm[Hg] 2019-07-06 18:08:12 130 mm[Hg] mm[Hg] Method: Stand DIASTOLIC mm[Hg] 2019-12-02 18:10:41 54 mm[Hg] mm[Hg] Method: Sit DIASTOLIC mm[Hg] 2019-07-06 18:08:12 90 mm[Hg] mm[Hg] Method: Stand PULSE 2019-12-02 18:10:41 54 /min /min RESP RATE 2019-11-30 18:10:39 16 /min /min TEMP 2019-12-02 18:10:41 98.4 [degF] Procedures This patient has no known procedures. Results This patient has no known results.
--- OUTSIDE RECORDS SUMMARY | 2019-12-09 11:53 | XMS REPORT ---
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, disease, [id number] unspecified unspecified 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 [id number] [place]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 without angina angina pectoris pectoris Essential Essential Diagnosis Active Adry (primary) (primary) 1 Ingrahm hypertensio hypertensio [id number] n n 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 Ingrahm [id number] Enterocolit Enterocolit Diagnosis Active 2018-10 Adry is due to is due to 0-13 Ingrahm Clostridium Clostridium [id number] difficile, difficile, not not specified specified as as recurrent recurrent Raynaud's Raynaud's Diagnosis Active Adry syndrome syndrome Ingrahm without without [id number] gangrene gangrene 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, lymphoma, [id number] unspecified unspecified , , unspecified unspecified site site 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) [id number] (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, seizures, not not intractable intractable , without , without status status epilepticus epilepticus Radiculopat Radiculopat Diagnosis Active Adry hy, lumbar hy, lumbar Ingrahm region region [id number] 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 [id number] 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 [id number] diseases diseases classified classified elsewhere elsewhere Benign Benign Diagnosis Active Adry prostatic prostatic Ingrahm hyperplasia hyperplasia [id number] without without lower lower urinary urinary tract tract symptoms symptoms 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 [id number] insufficien insufficien cy 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 [id number] unspecified unspecified sites in sites in spine spine 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, psoriasis, SC129326 unspecified unspecified Other Other Diagnosis Active Adry dysphagia dysphagia Ingrahm [id number] 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 [id number] n n 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 s with s with [id number] current current pathologica pathologica l fracture, l fracture, vertebra(e) vertebra(e) , , subsequent subsequent encounter encounter for for fracture fracture with with routine routine healing healing director long term care correction Diagnosis Active Adry (current) (current) Ingrahm use of use of [id number] antithrombo antithrombo tics/antipl tics/antipl atelets atelets director long term care correction Diagnosis Active Adry (current) (current) Ingrahm use of use of [id number] antibiotics antibiotics correction correction Diagnosis Active Adry (current) (current) Ingrahm use of use of [id number] systemic systemic steroids steroids director long term care director long term care Diagnosis Active Adry (current) (current) Ingrahm use of use of [id number] opiate opiate analgesic analgesic 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 [id number] below knee below knee Personal Personal Diagnosis Active Adry history of history of Ingrahm nicotine nicotine [id number] dependence dependence Pain frequent Pain Mgmt Resolve 2018-102019-07-18 Grace pain d 0-01 13:00:00 (Pennie) 10:30: Mondragon 00 [id number] Cardio edema Cardiovasc Resolve 2018-102019-07-24 Grace ular d 0-01 09:00:00 (Pennie) 10:30: Mondragon 00 [id number] Respiratory dyspnea Respirator Resolve 2018-102019-07-24 Grace present y d 0-01 09:00:00 (Pennie) 10:30: Mondragon 00 [id number] Endo/David anti-coagul Endo/David Resolve 2018-102019-07-18 Grace ation d 0-01 13:00:00 (Pennie) therapy 10:30: Mondragon [id number] Integument skin Integument Resolve 2018-102019-07-24 Grace integrity d 0-01 09:00:00 (Pennie) risk 10:30: Mondragon [id number] Elimination urinary Eliminatio Resolve 2018-102019-07-24 Grace incontinenc n d 0-01 09:00:00 (Pennie) e 10:30: Mondragon 00 [id number] Neuro confusion Neuro/Emot Resolve 2018-102019-09-26 Grace present ion d 0-01 10:25:00 (Pennie) 10:30: Mondragon [id number] Neuro depressive Neuro/Emot Resolve 2018-102019-09-26 Grace feelings ion d 0-01 10:25:00 (Pennie) present 10:30: Mondragon [id number] Neuro impaired Neuro/Emot Resolve 2018-102019-09-26 Grace decision-ma ion d 0-01 10:25:00 (Pennie) guanako 10:30: [id number] Neuro memory Neuro/Emot Resolve 2018-102019-09-26 Grace deficit ion d 0-01 10:25:00 (Pennie) needing 10:30: Mondragon supervision 00 [id number] Activity ADL Activity Resolve 2018-102019-07-24 Grace assistance d 0-01 09:00:00 (Pennie) required 10:30: Mondragon 00 [id number] Activity self-care Activity Resolve 2018-102019-07-24 Grace deficit d 0-01 09:00:00 (Pennie) 10:30: Mondragon 00 [id number] Safety fall risk Safety Resolve 2018-102019-10-03 Grace factor d 0-01 09:30:00 (Pennie) present 10:30: Mondragon [id number] Safety cannot be Safety Resolve 2018-102019-10-03 Grace left alone d 0-01 09:30:00 (Pennie) 10:30: Mondragon [id number] Safety risk for Safety Resolve 2018-102019-10-03 Grace hospitaliza d 0-01 09:30:00 (Pennie) tion 10:30: Mondragon [id number] Medication oral med Meds Resolve 2018-102019-07-18 Grace assistance d 0-01 13:00:00 (Pennie) required 10:30: Mondragon [id number] Musculoskel transfer Musculoske Resolve 2018-102019-07-24 Grace etal assistance letal d 0-01 09:00:00 (Pennie) required 10:30: Mondragon [id number] Musculoskel requires Musculoske Resolve 2018-102019-07-24 Grcae etal human letal d 0-01 09:00:00 (Pennie) assist to 10:30: Mondragon leave home 00 [id number] Nutrition nutritional Nutrition Resolve 2018-102019-07-18 Bimal restriction d 0-02 13:00:00 Anguish s 13:46: [id number] 00 Safety structural Safety Resolve 2018-102019-07-24 Bimal barriers d 0-02 09:00:00 Anguish present 13:46: [id number] 00 Safety can be left Safety Resolve 2018-102019-10-03 Bimal alone for d 0-02 09:30:00 Anguish only short 13:46: [id number] periods 00 Balance/End balance/disability coordinator PT/OT: Active 2018-10 Bimal urance rdination Balance/En 0-02 Anguish deficit durance 13:46: [id number] 00 Balance/End endurance PT/OT: Active 2018-10 Bimal urance deficit Balance/En 0-02 Anguish durance 13:46: [id number] 00 Equipment prosthesis PT/OT: Active 2018-10 Bimal Mgmt mgmt Equipment 0-02 Anguish deficit Mgmt 13:46: [id number] 00 Gait/Locomo gait PT/OT: Active 2018-10 Bimal tion deficit Gait/Locom 0-02 Anguish problems otion 13:46: [id number] 00 Elimination bowel Eliminatio Resolve 2018-102019-07-24 Adry incontinenc n d 0-15 09:00:00 Ingrahm e 10:00: [id number] 00 Gait/Locomo gait PT/OT: Active 2018-10 Bimal tion assistive Gait/Locom 0-18 Anguish problems device otion 10:20: [id number] present 00 Nutrition nutritional Nutrition Resolve 2018-102019-07-24 Adry restriction d 0-22 09:00:00 Ingrahm s 10:00: [id number] 00 Nutrition nutritional Nutrition Resolve 2018-102019-08-14 Adry restriction d 0-29 09:59:00 Ingrahm s 08:46: [id number] 00 Integument skin Integument Active 2018-10 Velvet [...] ulcer d 2-03 09:30:00 Ingrahm present 09:53: [id number] 00 Integument surgical Integument Resolve 2018-102019-10-03 Adry wound d 2-03 09:30:00 Ingrahm present 09:53: [id number] 00 Integument stasis Integument Resolve 2018-102019-10-03 Maylin ulcer d 2-03 09:30:00 Jefferson present 09:53: [id number] 00 Bed transfer PT/OT: Bed Active 2018-10 Bimal Mobility/Tr deficit: Mobility/T 2-03 Anguish ansfer standing ransfer 11:50: [id number] pivot 00 Bed transfer PT/OT: Bed Active 2018-10 Bimal Mobility/Tr deficit: Mobility/T 2-03 Anguish ansfer toilet/comm ransfer 11:50: [id number] ode 00 Bed transfer PT/OT: Bed Active 2018-10 Bimal Mobility/Tr deficit: Mobility/T 2-03 Anguish ansfer shower/tub ransfer 11:50: [id number] 00 Activity self-care Activity Resolve 2019-10-17 Adry deficit d 10-03 10:00:00 Ingrahm 09:30: [id number] 00 Activity ADL Activity Resolve 2019-10-17 Bimal assistance d 10-07 10:00:00 Anguish required 10:38: [id number] 00 Safety risk for Safety Active Bimal hospitaliza 10-07 Anguish tion 10:38: [id number] 00 Safety can be left Safety Active Adry alone for 10-10 Ingrahm only short 11:20: [id number] periods 00 Activity ADL Activity Active Maylin assistance 10-24 Jefferson required 09:40: [id number] 00 Activity self-care Activity Active Adry deficit 10-24 Ingrahm 09:40: [id number] 00 Safety fall risk Safety Active Adry factor 10-24 Ingrahm present 09:40: [id number] 00 Allergies, Adverse Reactions, Alerts Allergy Name [...] release(par t/cryst) t/cryst) vancomycin vancomycin 2018-10- No Acstillo Unknown Unknown 125 mg 125 mg 11-12 [...]
--- OUTSIDE RECORDS SUMMARY | 2019-12-09 11:53 | XMS REPORT ---
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, disease, [id number] unspecified unspecified 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 pectoris pectoris Essential Essential Diagnosis Active Adry (primary) (primary) 1 Ingrahm hypertensio hypertensio [id number] n n 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 Ingrahm [id number] Enterocolit Enterocolit Diagnosis Active 2018-10 Adry is due to is due to 0-13 Ingrahm Clostridium Clostridium [id number] difficile, difficile, not not specified specified as as recurrent recurrent Raynaud's Raynaud's Diagnosis Active Adry syndrome syndrome Ingrahm without without [id number] gangrene gangrene 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, lymphoma, 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 unspecified unspecified , , unspecified unspecified site site 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) [id number] (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, seizures, not not intractable intractable , without , without status status epilepticus epilepticus Radiculopat Radiculopat Diagnosis Active Adry hy, lumbar hy, lumbar Ingrahm region region [id number] 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 [id number] diseases diseases classified classified elsewhere elsewhere Benign Benign Diagnosis Active Adry prostatic prostatic Ingrahm hyperplasia hyperplasia [id number] without without lower lower urinary urinary tract tract symptoms symptoms 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 cy 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 [id number] unspecified unspecified sites in sites in spine spine 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, psoriasis, [id number] unspecified unspecified Other Other Diagnosis Active Adry dysphagia dysphagia Ingrahm [id number] 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 [id number] n n 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 s with s with [id number] current current pathologica pathologica l fracture, l fracture, vertebra(e) vertebra(e) , , subsequent subsequent encounter encounter for for fracture fracture with with routine routine healing healing 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 half-way Diagnosis Active Adry (current) (current) Ingrahm use of use of [id number] antithrombo antithrombo tics/antipl tics/antipl atelets atelets 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 half-way Diagnosis Active Adry (current) (current) Ingrahm use of use of [id number] antibiotics antibiotics half-way half-way Diagnosis Active Adry (current) (current) Ingrahm use of use of [id number] systemic systemic steroids steroids 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 Diagnosis Active Adry (current) (current) Ingrahm use of use of [id number] opiate opiate analgesic analgesic 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 [id number] below knee below knee Personal Personal Diagnosis Active Adry history of history of Ingrahm nicotine nicotine [id number] dependence dependence Pain frequent Pain Mgmt Resolve 2018-102019-07-18 Grace pain d 0-01 13:00:00 (Pennie) 10:30: Mondragon 00 [id number] Cardio edema Cardiovasc Resolve 2018-102019-07-24 Grace ular d 0-01 09:00:00 (Pennie) 10:30: Mondragon 00 [id number] Respiratory dyspnea Respirator Resolve 2018-102019-07-24 Grace present y d 0-01 09:00:00 (Pennie) 10:30: Mondragon 00 [id number] Endo/David anti-coagul Endo/David Resolve 2018-102019-07-18 Grace ation d 0-01 13:00:00 (Pennie) therapy 10:30: Mondragon [id number] Integument skin Integument Resolve 2018-102019-07-24 Grace integrity d 0-01 09:00:00 (Pennie) risk 10:30: Mondragon [id number] Elimination urinary Eliminatio Resolve 2018-102019-07-24 Grace incontinenc n d 0-01 09:00:00 (Pennie) e 10:30: Mondragon 00 [id number] Neuro confusion Neuro/Emot Resolve 2018-102019-09-26 Grace present ion d 0-01 10:25:00 (Pennie) 10:30: Mondragon [id number] Neuro depressive Neuro/Emot Resolve 2018-102019-09-26 Grace feelings ion d 0-01 10:25:00 (Pennie) present 10:30: Mondragon [id number] Neuro impaired Neuro/Emot Resolve 2018-102019-09-26 Grace decision-ma ion d 0-01 10:25:00 (Pennie) guanako 10:30: [id number] Neuro memory Neuro/Emot Resolve 2018-102019-09-26 Grace deficit ion d 0-01 10:25:00 (Pennie) needing 10:30: Mondragon supervision 00 [id number] Activity ADL Activity Resolve 2018-102019-07-24 Grace assistance d 0-01 09:00:00 (Pennie) required 10:30: Mondragon 00 [id number] Activity self-care Activity Resolve 2018-102019-07-24 Grace deficit d 0-01 09:00:00 (Pennie) 10:30: Mondragon 00 [id number] Safety fall risk Safety Resolve 2018-102019-10-03 Grace factor d 0-01 09:30:00 (Pennie) present 10:30: Mondragon [id number] Safety cannot be Safety Resolve 2018-102019-10-03 Grace left alone d 0-01 09:30:00 (Pennie) 10:30: Mondragon [id number] Safety risk for Safety Resolve 2018-102019-10-03 Grace hospitaliza d 0-01 09:30:00 (Pennie) tion 10:30: Mondragon [id number] Medication oral med Meds Resolve 2018-102019-07-18 Grace assistance d 0-01 13:00:00 (Pennie) required 10:30: Mondragon [id number] Musculoskel transfer Musculoske Resolve 2018-102019-07-24 Grace etal assistance letal d 0-01 09:00:00 (Pennie) required 10:30: Mondragon [id number] Musculoskel requires Musculoske Resolve 2018-102019-07-24 Grace etal human letal d 0-01 09:00:00 (Pennie) assist to 10:30: Mondragon leave home 00 [id number] Nutrition nutritional Nutrition Resolve 2018-102019-07-18 Bimal restriction d 0-02 13:00:00 Anguish s 13:46: [id number] Safety structural Safety Resolve 2018-102019-07-24 Bimal barriers d 0-02 09:00:00 Anguish present 13:46: [id number] 00 Safety can be left Safety Resolve 2018-102019-10-03 Bimal alone for d 0-02 09:30:00 Anguish only short 13:46: [id number] periods 00 Balance/End balance/cook school cafeteria PT/OT: Active 2018-10 Bimal urance rdination Balance/En 0-02 Anguish deficit durance 13:46: [id number] 00 Balance/End endurance PT/OT: Active 2018-10 Bimal urance deficit Balance/En 0-02 Anguish durance 13:46: [id number] 00 Equipment prosthesis PT/OT: Active 2018-10 Bimal Mgmt mgmt Equipment 0-02 Anguish deficit Mgmt 13:46: [id number] 00 Gait/Locomo gait PT/OT: Active 2018-10 Bimal tion deficit Gait/Locom 0-02 Anguish problems otion 13:46: [id number] 00 Elimination bowel Eliminatio Resolve 2018-102019-07-24 Adry incontinenc n d 0-15 09:00:00 Ingrahm e 10:00: [id number] 00 Gait/Locomo gait PT/OT: Active 2018-10 Bimal tion assistive Gait/Locom 0-18 Anguish problems device otion 10:20: [id number] present 00 Nutrition nutritional Nutrition Resolve 2018-102019-07-24 Adry restriction d 0-22 09:00:00 Ingrahm s 10:00: [id number] 00 Nutrition nutritional Nutrition Resolve 2018-102019-08-14 Adry restriction d 0-29 09:59:00 Ingrahm s 08:46: [id number] 00 Integument skin Integument Active 2018-10 Velvet [...] ulcer d 2-03 09:30:00 Ingrahm present 09:53: [id number] 00 Integument surgical Integument Resolve 2018-102019-10-03 Adry wound d 2-03 09:30:00 Ingrahm present 09:53: [id number] 00 Integument stasis Integument Resolve 2018-102019-10-03 Maylin ulcer d 2-03 09:30:00 Jefferson present 09:53: [id number] 00 Bed transfer PT/OT: Bed Active 2018-10 Bimal Mobility/Tr deficit: Mobility/T 2-03 Anguish ansfer standing ransfer 11:50: [id number] pivot 00 Bed transfer PT/OT: Bed Active 2018-10 Bimal Mobility/Tr deficit: Mobility/T 2-03 Anguish ansfer toilet/comm ransfer 11:50: [id number] ode 00 Bed transfer PT/OT: Bed Active 2018-10 Bimal Mobility/Tr deficit: Mobility/T 2-03 Anguish ansfer shower/tub ransfer 11:50: [id number] 00 Activity self-care Activity Resolve 2019-10-17 Adry deficit d 10-03 10:00:00 Ingrahm 09:30: [id number] 00 Activity ADL Activity Resolve 2019-10-17 Bimal assistance d 10-07 10:00:00 Anguish required 10:38: [id number] 00 Safety risk for Safety Active Bimal hospitaliza 10-07 Anguish tion 10:38: [id number] 00 Safety can be left Safety Active Adry alone for 10-10 Ingrahm only short 11:20: [id number] periods 00 Activity ADL Activity Active Maylin assistance 10-24 Jefferson required 09:40: [id number] 00 Activity self-care Activity Active Adry deficit 10-24 Ingrahm 09:40: [id number] 00 Safety fall risk Safety Active Adry factor 10-24 Ingrahm present 09:40: [id number] 00 Allergies, Adverse Reactions, Alerts Allergy Name [...] Observation Time Observation Value Comments SYSTOLIC mm[Hg] 2019-12-05 18:10:44 132 mm[Hg] mm[Hg] Method: Sit SYSTOLIC mm[Hg] 2019-07-06 18:08:12 130 mm[Hg] mm[Hg] Method: Stand DIASTOLIC mm[Hg] 2019-12-05 18:10:44 82 mm[Hg] mm[Hg] Method: Sit DIASTOLIC mm[Hg] 2019-07-06 18:08:12 90 mm[Hg] mm[Hg] Method: Stand PULSE 2019-12-05 18:10:44 59 /min /min RESP RATE 2019-11-30 18:10:39 16 /min /min TEMP 2019-12-04 18:10:43 97.9 [degF] Procedures This patient has no known procedures. Results This patient has no known results.
--- OUTSIDE RECORDS SUMMARY | 2019-12-09 11:53 | XMS REPORT ---
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, disease, [id number] unspecified unspecified 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 [id number] [place]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 without angina angina pectoris pectoris Essential Essential Diagnosis Active Adry (primary) (primary) 1 Ingrahm hypertensio hypertensio [id number] n n 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 Ingrahm [id number] Enterocolit Enterocolit Diagnosis Active 2018-10 Adry is due to is due to 0-13 Ingrahm Clostridium Clostridium [id number] difficile, difficile, not not specified specified as as recurrent recurrent Raynaud's Raynaud's Diagnosis Active Adry syndrome syndrome Ingrahm without without [id number] gangrene gangrene 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, lymphoma, [id number] unspecified unspecified , , unspecified unspecified site site 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) [id number] (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, seizures, not not intractable intractable , without , without status status epilepticus epilepticus Radiculopat Radiculopat Diagnosis Active Adry hy, lumbar hy, lumbar Ingrahm region region [id number] 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 [id number] 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 [id number] diseases diseases classified classified elsewhere elsewhere Benign Benign Diagnosis Active Adry prostatic prostatic Ingrahm hyperplasia hyperplasia [id number] without without lower lower urinary urinary tract tract symptoms symptoms 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 [id number] insufficien insufficien cy 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 [id number] unspecified unspecified sites in sites in spine spine 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, psoriasis, [id number] unspecified unspecified Other Other Diagnosis Active Adry dysphagia dysphagia Ingrahm [id number] 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 [id number] n n 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 s with s with [id number] current current pathologica pathologica l fracture, l fracture, vertebra(e) vertebra(e) , , subsequent subsequent encounter encounter for for fracture fracture with with routine routine healing healing 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 halfway Diagnosis Active Adry (current) (current) Ingrahm use of use of [id number] antithrombo antithrombo tics/antipl tics/antipl atelets atelets 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 halfway Diagnosis Active Adry (current) (current) Ingrahm use of use of [id number] antibiotics antibiotics halfway halfway Diagnosis Active Adry (current) (current) Ingrahm use of use of [id number] systemic systemic steroids steroids 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 Diagnosis Active Adry (current) (current) Ingrahm use of use of [id number] opiate opiate analgesic analgesic 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 [id number] below knee below knee Personal Personal Diagnosis Active Adry history of history of Ingrahm nicotine nicotine MD130711 dependence dependence Pain frequent Pain Mgmt Resolve 2018-102019-07-18 Grace pain d 0-01 13:00:00 (Pennie) 10:30: Mondragon 00 [id number] Cardio edema Cardiovasc Resolve 2018-102019-07-24 Grace ular d 0-01 09:00:00 (Pennie) 10:30: Mondragon 00 [id number] Respiratory dyspnea Respirator Resolve 2018-102019-07-24 Grace present y d 0-01 09:00:00 (Pennie) 10:30: Mondragon 00 [id number] Endo/David anti-coagul Endo/David Resolve 2018-102019-07-18 Grace ation d 0-01 13:00:00 (Pennie) therapy 10:30: Mondragon [id number] Integument skin Integument Resolve 2018-102019-07-24 Grace integrity d 0-01 09:00:00 (Pennie) risk 10:30: Mondragon [id number] Elimination urinary Eliminatio Resolve 2018-102019-07-24 Grace incontinenc n d 0-01 09:00:00 (Pennie) e 10:30: Mondragon 00 [id number] Neuro confusion Neuro/Emot Resolve 2018-102019-09-26 Grace present ion d 0-01 10:25:00 (Pennie) 10:30: Mondragon [id number] Neuro depressive Neuro/Emot Resolve 2018-102019-09-26 Grace feelings ion d 0-01 10:25:00 (Pennie) present 10:30: Mondragon [id number] Neuro impaired Neuro/Emot Resolve 2018-102019-09-26 Grace decision-ma ion d 0-01 10:25:00 (Pennie) guanako 10:30: [id number] Neuro memory Neuro/Emot Resolve 2018-102019-09-26 Grace deficit ion d 0-01 10:25:00 (Pennie) needing 10:30: Mondragon supervision 00 [id number] Activity ADL Activity Resolve 2018-102019-07-24 Grace assistance d 0-01 09:00:00 (Pennie) required 10:30: Mondragon 00 [id number] Activity self-care Activity Resolve 2018-102019-07-24 Grace deficit d 0-01 09:00:00 (Pennie) 10:30: Mondragon 00 [id number] Safety fall risk Safety Resolve 2018-102019-10-03 Grace factor d 0-01 09:30:00 (Pennie) present 10:30: Mondragon [id number] Safety cannot be Safety Resolve 2018-102019-10-03 Grace left alone d 0-01 09:30:00 (Pennie) 10:30: Mondragon [id number] Safety risk for Safety Resolve 2018-102019-10-03 Grace hospitaliza d 0-01 09:30:00 (Pennie) tion 10:30: Mondragon [id number] Medication oral med Meds Resolve 2018-102019-07-18 Grace assistance d 0-01 13:00:00 (Pennie) required 10:30: Mondragon [id number] Musculoskel transfer Musculoske Resolve 2018-102019-07-24 Grace etal assistance letal d 0-01 09:00:00 (Pennie) required 10:30: Mondragon [id number] Musculoskel requires Musculoske Resolve 2018-102019-07-24 Grace etal human letal d 0-01 09:00:00 (Pennie) assist to 10:30: Mondragon leave home 00 [id number] Nutrition nutritional Nutrition Resolve 2018-102019-07-18 Bimal restriction d 0-02 13:00:00 Anguish s 13:46: [id number] 00 Safety structural Safety Resolve 2018-102019-07-24 Bimal barriers d 0-02 09:00:00 Anguish present 13:46: [id number] 00 Safety can be left Safety Resolve 2018-102019-10-03 Bimal alone for d 0-02 09:30:00 Anguish only short 13:46: [id number] periods 00 Balance/End balance/account coordinator PT/OT: Active 2018-10 Bimal urance rdination Balance/En 0-02 Anguish deficit durance 13:46: [id number] 00 Balance/End endurance PT/OT: Active 2018-10 Bimal urance deficit Balance/En 0-02 Anguish durance 13:46: [id number] 00 Equipment prosthesis PT/OT: Active 2018-10 Bimal Mgmt mgmt Equipment 0-02 Anguish deficit Mgmt 13:46: [id number] 00 Gait/Locomo gait PT/OT: Active 2018-10 Bimal tion deficit Gait/Locom 0-02 Anguish problems otion 13:46: [id number] 00 Elimination bowel Eliminatio Resolve 2018-102019-07-24 Adry incontinenc n d 0-15 09:00:00 Ingrahm e 10:00: [id number] 00 Gait/Locomo gait PT/OT: Active 2018-10 Bimal tion assistive Gait/Locom 0-18 Anguish problems device otion 10:20: [id number] present 00 Nutrition nutritional Nutrition Resolve 2018-102019-07-24 Adry restriction d 0-22 09:00:00 Ingrahm s 10:00: [id number] 00 Nutrition nutritional Nutrition Resolve 2018-102019-08-14 Adry restriction d 0-29 09:59:00 Ingrahm s 08:46: [id number] 00 Integument skin Integument Active 2018-10 Velvet [...] ulcer d 2-03 09:30:00 Ingrahm present 09:53: [id number] 00 Integument surgical Integument Resolve 2018-102019-10-03 Adry wound d 2-03 09:30:00 Ingrahm present 09:53: [id number] 00 Integument stasis Integument Resolve 2018-102019-10-03 Maylin ulcer d 2-03 09:30:00 Jefferson present 09:53: [id number] 00 Bed transfer PT/OT: Bed Active 2018-10 Bimal Mobility/Tr deficit: Mobility/T 2-03 Anguish ansfer standing ransfer 11:50: [id number] pivot 00 Bed transfer PT/OT: Bed Active 2018-10 Bimal Mobility/Tr deficit: Mobility/T 2-03 Anguish ansfer toilet/comm ransfer 11:50: [id number] ode 00 Bed transfer PT/OT: Bed Active 2018-10 Bimal Mobility/Tr deficit: Mobility/T 2-03 Anguish ansfer shower/tub ransfer 11:50: [id number] 00 Activity self-care Activity Resolve 2019-10-17 Adry deficit d 10-03 10:00:00 Ingrahm 09:30: [id number] 00 Activity ADL Activity Resolve 2019-10-17 Bimal assistance d 10-07 10:00:00 Anguish required 10:38: [id number] 00 Safety risk for Safety Active Bimal hospitaliza 10-07 Anguish tion 10:38: [id number] 00 Safety can be left Safety Active Adry alone for 10-10 Ingrahm only short 11:20: [id number] periods 00 Activity ADL Activity Active Maylin assistance 10-24 Jefferson required 09:40: [id number] 00 Activity self-care Activity Active Adry deficit 10-24 Ingrahm 09:40: [id number] 00 Safety fall risk Safety Active Adry factor 10-24 Ingrahm present 09:40: [id number] 00 Allergies, Adverse Reactions, Alerts Allergy Name [...] 2019-11-28 18:10:37 63 /min /min RESP RATE 2019-11-17 18:10:26 16 /min /min TEMP 2019-11-27 18:10:36 98.4 [degF] Procedures This patient has no known procedures. Results This patient has no known results.
--- OUTSIDE RECORDS SUMMARY | 2019-12-09 11:53 | XMS REPORT ---
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, disease, [id number] unspecified unspecified 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 Essential Essential Diagnosis Active Adry (primary) (primary) 1 Ingrahm hypertensio hypertensio [id number] n n 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 Ingrahm [id number] Enterocolit Enterocolit Diagnosis Active 2018-10 Adry is due to is due to 0-13 Ingrahm Clostridium Clostridium [id number] difficile, difficile, not not specified specified as as recurrent recurrent Raynaud's Raynaud's Diagnosis Active Adry syndrome syndrome Ingrahm without without [id number] gangrene gangrene 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, lymphoma, 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 unspecified unspecified , , unspecified unspecified site site 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) [id number] (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, seizures, not not intractable intractable , without , without status status epilepticus epilepticus Radiculopat Radiculopat Diagnosis Active Adry hy, lumbar hy, lumbar Ingrahm region region [id number] 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 [id number] diseases diseases classified classified elsewhere elsewhere Benign Benign Diagnosis Active Adry prostatic prostatic Ingrahm hyperplasia hyperplasia [id number] without without lower lower urinary urinary tract tract symptoms symptoms 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 [id number] unspecified unspecified sites in sites in spine spine 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, psoriasis, [id number] unspecified unspecified Other Other Diagnosis Active Adry dysphagia dysphagia Ingrahm [id number] 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 [id number] n n 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 s with s with [id number] current current pathologica pathologica l fracture, l fracture, vertebra(e) vertebra(e) , , subsequent subsequent encounter encounter for for fracture fracture with with routine routine healing healing [facility] Diagnosis Active Adry (current) (current) Ingrahm use of use of [id number] antithrombo antithrombo tics/antipl tics/antipl atelets atelets [employer] [facility] Diagnosis Active Adry (current) (current) Ingrahm use of use of [id number] antibiotics antibiotics jail jail Diagnosis Active Adry (current) (current) Ingrahm use of use of [id number] systemic systemic steroids steroids [employer]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 Adry (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) (current) Ingrahm use of use of [id number] opiate opiate analgesic analgesic 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 [id number] below knee below knee Personal Personal Diagnosis Active Adry history of history of Ingrahm nicotine nicotine [id number] dependence dependence Pain frequent Pain Mgmt Resolve 2018-102019-07-18 Grace pain d 0-01 13:00:00 (Pennie) 10:30: Mondragon 00 [id number] Cardio edema Cardiovasc Resolve 2018-102019-07-24 Grace ular d 0-01 09:00:00 (Pennie) 10:30: Mondragon 00 [id number] Respiratory dyspnea Respirator Resolve 2018-102019-07-24 Grace present y d 0-01 09:00:00 (Pennie) 10:30: Mondragon 00 [id number] Endo/David anti-coagul Endo/Daivd Resolve 2018-102019-07-18 Grace ation d 0-01 13:00:00 (Pennie) therapy 10:30: Mondragon [id number] Integument skin Integument Resolve 2018-102019-07-24 Grace integrity d 0-01 09:00:00 (Pennie) risk 10:30: Mondragon [id number] Elimination urinary Eliminatio Resolve 2018-102019-07-24 Grace incontinenc n d 0-01 09:00:00 (Pennie) e 10:30: Mondragon 00 [id number] Neuro confusion Neuro/Emot Resolve 2018-102019-09-26 Grace present ion d 0-01 10:25:00 (Pennie) 10:30: Mondragon [id number] Neuro depressive Neuro/Emot Resolve 2018-102019-09-26 Grace feelings ion d 0-01 10:25:00 (Pennie) present 10:30: Mondragon [id number] Neuro impaired Neuro/Emot Resolve 2018-102019-09-26 Grace decision-ma ion d 0-01 10:25:00 (Pennie) guanako 10:30: [id number] Neuro memory Neuro/Emot Resolve 2018-102019-09-26 Grace deficit ion d 0-01 10:25:00 (Pennie) needing 10:30: Mondragon supervision 00 [id number] Activity ADL Activity Resolve 2018-102019-07-24 Grace assistance d 0-01 09:00:00 (Pennie) required 10:30: Mondragon 00 [id number] Activity self-care Activity Resolve 2018-102019-07-24 Grace deficit d 0-01 09:00:00 (Pennie) 10:30: Mondragon 00 [id number] Safety fall risk Safety Resolve 2018-102019-10-03 Grace factor d 0-01 09:30:00 (Pennie) present 10:30: Mondragon [id number] Safety cannot be Safety Resolve 2018-102019-10-03 Grace left alone d 0-01 09:30:00 (Pennie) 10:30: Mondragon [id number] Safety risk for Safety Resolve 2018-102019-10-03 Grace hospitaliza d 0-01 09:30:00 (Pennie) tion 10:30: Mondragon [id number] Medication oral med Meds Resolve 2018-102019-07-18 Grace assistance d 0-01 13:00:00 (Pennie) required 10:30: Mondragon [id number] Musculoskel transfer Musculoske Resolve 2018-102019-07-24 Grace etal assistance letal d 0-01 09:00:00 (Pennie) required 10:30: Mondragon [id number] Musculoskel requires Musculoske Resolve 2018-102019-07-24 Grace etal human letal d 0-01 09:00:00 (Pennie) assist to 10:30: Mondragon leave home 00 [id number] Nutrition nutritional Nutrition Resolve 2018-102019-07-18 Bimal restriction d 0-02 13:00:00 Anguish s 13:46: [id number] 00 Safety structural Safety Resolve 2018-102019-07-24 Bimal barriers d 0-02 09:00:00 Anguish present 13:46: [id number] 00 Safety can be left Safety Resolve 2018-102019-10-03 Bimal alone for d 0-02 09:30:00 Anguish only short 13:46: [id number] periods 00 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 PT/OT: Active 2018-10 Bimal urance rdination Balance/En 0-02 Anguish deficit durance 13:46: [id number] Balance/End endurance PT/OT: Active 2018-10 Bimal urance deficit Balance/En 0-02 Anguish durance 13:46: [id number] 00 Equipment prosthesis PT/OT: Active 2018-10 Bmial Mgmt mgmt Equipment 0-02 Anguish deficit Mgmt 13:46: [id number] 00 Gait/Locomo gait PT/OT: Active 2018-10 Bimal tion deficit Gait/Locom 0-02 Anguish problems otion 13:46: [id number] 00 Elimination bowel Eliminatio Resolve 2018-102019-07-24 Adry incontinenc n d 0-15 09:00:00 Ingrahm e 10:00: [id number] 00 Gait/Locomo gait PT/OT: Active 2018-10 Bimal tion assistive Gait/Locom 0-18 Anguish problems device otion 10:20: [id number] present 00 Nutrition nutritional Nutrition Resolve 2018-102019-07-24 Adry restriction d 0-22 09:00:00 Ingrahm s 10:00: [id number] 00 Nutrition nutritional Nutrition Resolve 2018-102019-08-14 Adry restriction d 0-29 09:59:00 Ingrahm s 08:46: [id number] 00 Integument skin Integument Active 2018-10 Velvet [...] ulcer d 2-03 09:30:00 Ingrahm present 09:53: [id number] 00 Integument surgical Integument Resolve 2018-102019-10-03 Adry wound d 2-03 09:30:00 Ingrahm present 09:53: [id number] 00 Integument stasis Integument Resolve 2018-102019-10-03 Maylin ulcer d 2-03 09:30:00 Jefferson present 09:53: [id number] 00 Bed transfer PT/OT: Bed Active 2018-10 Bimal Mobility/Tr deficit: Mobility/T 2-03 Anguish ansfer standing ransfer 11:50: [id number] pivot 00 Bed transfer PT/OT: Bed Active 2018-10 Bimal Mobility/Tr deficit: Mobility/T 2-03 Anguish ansfer toilet/comm ransfer 11:50: [id number] ode 00 Bed transfer PT/OT: Bed Active 2018-10 Bimal Mobility/Tr deficit: Mobility/T 2-03 Anguish ansfer shower/tub ransfer 11:50: [id number] 00 Activity self-care Activity Resolve 2019-10-17 Adry deficit d 10-03 10:00:00 Ingrahm 09:30: [id number] 00 Activity ADL Activity Resolve 2019-10-17 Bimal assistance d 10-07 10:00:00 Anguish required 10:38: [id number] 00 Safety risk for Safety Active Bimal hospitaliza 10-07 Anguish tion 10:38: [id number] 00 Safety can be left Safety Active Adry alone for 10-10 Ingrahm only short 11:20: [id number] periods 00 Activity ADL Activity Active Maylin assistance 10-24 Jefferson required 09:40: [id number] 00 Activity self-care Activity Active Adry deficit 10-24 Ingrahm 09:40: [id number] 00 Safety fall risk Safety Active Adry factor 10-24 Ingrahm present 09:40: [id number] 00 Allergies, Adverse Reactions, Alerts Allergy Name [...] 250 mg (as 250 mg (as 007-15 ,aMy magnesium magnesium oxide) oxide) tablet tablet potassium [...] Observation Time Observation Value Comments SYSTOLIC mm[Hg] 2019-12-04 18:10:43 122 mm[Hg] mm[Hg] Method: Sit SYSTOLIC mm[Hg] 2019-07-06 18:08:12 130 mm[Hg] mm[Hg] Method: Stand DIASTOLIC mm[Hg] 2019-12-04 18:10:43 52 mm[Hg] mm[Hg] Method: Sit DIASTOLIC mm[Hg] 2019-07-06 18:08:12 90 mm[Hg] mm[Hg] Method: Stand PULSE 2019-12-04 18:10:43 60 /min /min RESP RATE 2019-11-30 18:10:39 16 /min /min TEMP 2019-12-04 18:10:43 97.9 [degF] Procedures This patient has no known procedures. Results This patient has no known results.
--- OUTSIDE RECORDS SUMMARY | 2019-12-09 11:53 | XMS REPORT ---
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, disease, [id number] unspecified unspecified 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 [id number] [place]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 without angina angina pectoris pectoris Essential Essential Diagnosis Active Adry (primary) (primary) 1 Ingrahm hypertensio hypertensio [id number] n n 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 Ingrahm [id number] Enterocolit Enterocolit Diagnosis Active 2018-10 Adry is due to is due to 0-13 Ingrahm Clostridium Clostridium [id number] difficile, difficile, not not specified specified as as recurrent recurrent Raynaud's Raynaud's Diagnosis Active Adry syndrome syndrome Ingrahm without without [id number] gangrene gangrene 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, lymphoma, MV616738 unspecified unspecified , , unspecified unspecified site site 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) [id number] (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, seizures, not not intractable intractable , without , without status status epilepticus epilepticus Radiculopat Radiculopat Diagnosis Active Adry hy, lumbar hy, lumbar Ingrahm region region [id number] 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 [id number] 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 [id number] diseases diseases classified classified elsewhere elsewhere Benign Benign Diagnosis Active Adry prostatic prostatic Ingrahm hyperplasia hyperplasia [id number] without without lower lower urinary urinary tract tract symptoms symptoms 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 insufficien insufficien cy 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 [id number] unspecified unspecified sites in sites in spine spine 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, psoriasis, FT575919 unspecified unspecified Other Other Diagnosis Active Adry dysphagia dysphagia Ingrahm [id number] 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 [id number] n n 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 s with s with [id number] current current pathologica pathologica l fracture, l fracture, vertebra(e) vertebra(e) , , subsequent subsequent encounter encounter for for fracture fracture with with routine routine healing healing [facility] nursing home Diagnosis Active Adry (current) (current) Ingrahm use of use of [id number] antithrombo antithrombo tics/antipl tics/antipl atelets atelets [facility] nursing home Diagnosis Active Adry (current) (current) Ingrahm use of use of AD479979 antibiotics antibiotics nursing home nursing home Diagnosis Active Adry (current) (current) Ingrahm use of use of DQ085321 systemic systemic steroids 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 use of EN559421 opiate opiate analgesic analgesic 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 [id number] below knee below knee Personal Personal Diagnosis Active Adry history of history of Ingrahm nicotine nicotine [id number] dependence dependence Pain frequent Pain Mgmt Resolve 2018-102019-07-18 Grace pain d 0-01 13:00:00 (Pennie) 10:30: Mondragon 00 [id number] Cardio edema Cardiovasc Resolve 2018-102019-07-24 Grace ular d 0-01 09:00:00 (Pennie) 10:30: Mondragon 00 [id number] Respiratory dyspnea Respirator Resolve 2018-102019-07-24 Grace present y d 0-01 09:00:00 (Pennie) 10:30: Mondragon 00 [id number] Endo/David anti-coagul Endo/David Resolve 2018-102019-07-18 Grace ation d 0-01 13:00:00 (Pennie) therapy 10:30: Mondragon [id number] Integument skin Integument Resolve 2018-102019-07-24 Grace integrity d 0-01 09:00:00 (Pennie) risk 10:30: Mondragon [id number] Elimination urinary Eliminatio Resolve 2018-102019-07-24 Grace incontinenc n d 0-01 09:00:00 (Pennie) e 10:30: Mondragon 00 [id number] Neuro confusion Neuro/Emot Resolve 2018-102019-09-26 Grace present ion d 0-01 10:25:00 (Pennie) 10:30: Mondragon [id number] Neuro depressive Neuro/Emot Resolve 2018-102019-09-26 Grace feelings ion d 0-01 10:25:00 (Pennie) present 10:30: Mondragon [id number] Neuro impaired Neuro/Emot Resolve 2018-102019-09-26 Grace decision-ma ion d 0-01 10:25:00 (Pennie) guanako 10:30: [id number] Neuro memory Neuro/Emot Resolve 2018-102019-09-26 Grace deficit ion d 0-01 10:25:00 (Pennie) needing 10:30: Mondragon supervision 00 [id number] Activity ADL Activity Resolve 2018-102019-07-24 Grace assistance d 0-01 09:00:00 (Pennie) required 10:30: Mondragon 00 [id number] Activity self-care Activity Resolve 2018-102019-07-24 Grace deficit d 0-01 09:00:00 (Pennie) 10:30: Mondragon 00 [id number] Safety fall risk Safety Resolve 2018-102019-10-03 Grace factor d 0-01 09:30:00 (Pennie) present 10:30: Mondragon [id number] Safety cannot be Safety Resolve 2018-102019-10-03 Grace left alone d 0-01 09:30:00 (Pennie) 10:30: Mondragon [id number] Safety risk for Safety Resolve 2018-102019-10-03 Grace hospitaliza d 0-01 09:30:00 (Pennie) tion 10:30: Mondragon [id number] Medication oral med Meds Resolve 2018-102019-07-18 Grace assistance d 0-01 13:00:00 (Pennie) required 10:30: Mondragon [id number] Musculoskel transfer Musculoske Resolve 2018-102019-07-24 Grace etal assistance letal d 0-01 09:00:00 (Pennie) required 10:30: Mondragon [id number] Musculoskel requires Musculoske Resolve 2018-102019-07-24 Grace etal human letal d 0-01 09:00:00 (Pennie) assist to 10:30: Mondragon leave home 00 [id number] Nutrition nutritional Nutrition Resolve 2018-102019-07-18 Bimal restriction d 0-02 13:00:00 Anguish s 13:46: [id number] 00 Safety structural Safety Resolve 2018-102019-07-24 Bimal barriers d 0-02 09:00:00 Anguish present 13:46: [id number] 00 Safety can be left Safety Resolve 2018-102019-10-03 Bimal alone for d 0-02 09:30:00 Anguish only short 13:46: [id number] periods 00 Balance/End balance/recooperer PT/OT: Active 2018-10 Bimal urance rdination Balance/En 0-02 Anguish deficit durance 13:46: [id number] 00 Balance/End endurance PT/OT: Active 2018-10 Bimal urance deficit Balance/En 0-02 Anguish durance 13:46: [id number] 00 Equipment prosthesis PT/OT: Active 2018-10 Bimal Mgmt mgmt Equipment 0-02 Anguish deficit Mgmt 13:46: [id number] 00 Gait/Locomo gait PT/OT: Active 2018-10 Bimal tion deficit Gait/Locom 0-02 Anguish problems otion 13:46: [id number] 00 Elimination bowel Eliminatio Resolve 2018-102019-07-24 Adry incontinenc n d 0-15 09:00:00 Ingrahm e 10:00: [id number] 00 Gait/Locomo gait PT/OT: Active 2018-10 Bimal tion assistive Gait/Locom 0-18 Anguish problems device otion 10:20: [id number] present 00 Nutrition nutritional Nutrition Resolve 2018-102019-07-24 Adry restriction d 0-22 09:00:00 Ingrahm s 10:00: [id number] 00 Nutrition nutritional Nutrition Resolve 2018-102019-08-14 Adry restriction d 0-29 09:59:00 Ingrahm s 08:46: [id number] 00 Integument skin Integument Active 2018-10 Velvet [...] ulcer d 2-03 09:30:00 Ingrahm present 09:53: [id number] 00 Integument surgical Integument Resolve 2018-102019-10-03 Adry wound d 2-03 09:30:00 Ingrahm present 09:53: [id number] 00 Integument stasis Integument Resolve 2018-102019-10-03 Maylin ulcer d 2-03 09:30:00 Jefferson present 09:53: [id number] 00 Bed transfer PT/OT: Bed Active 2018-10 Bimal Mobility/Tr deficit: Mobility/T 2-03 Anguish ansfer standing ransfer 11:50: [id number] pivot 00 Bed transfer PT/OT: Bed Active 2018-10 Bimal Mobility/Tr deficit: Mobility/T 2-03 Anguish ansfer toilet/comm ransfer 11:50: [id number] ode 00 Bed transfer PT/OT: Bed Active 2018-10 Bimal Mobility/Tr deficit: Mobility/T 2-03 Anguish ansfer shower/tub ransfer 11:50: [id number] 00 Activity self-care Activity Resolve 2019-10-17 Adry deficit d 10-03 10:00:00 Ingrahm 09:30: [id number] 00 Activity ADL Activity Resolve 2019-10-17 Bimal assistance d 10-07 10:00:00 Anguish required 10:38: [id number] 00 Safety risk for Safety Active Bimal hospitaliza 10-07 Anguish tion 10:38: [id number] 00 Safety can be left Safety Active Adry alone for 10-10 Ingrahm only short 11:20: [id number] periods 00 Activity ADL Activity Active Maylin assistance 10-24 Jefferson required 09:40: [id number] 00 Activity self-care Activity Active Adry deficit 10-24 Ingrahm 09:40: [id number] 00 Safety fall risk Safety Active Adry factor 10-24 Ingrahm present 09:40: [id number] 00 Allergies, Adverse Reactions, Alerts Allergy Name [...]
--- OUTSIDE RECORDS SUMMARY | 2019-12-09 11:53 | XMS REPORT ---
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, disease, [id number] unspecified unspecified 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 angina angina pectoris pectoris Essential Essential Diagnosis Active Adry (primary) (primary) 1 Ingrahm hypertensio hypertensio [id number] n n 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 Ingrahm [id number] Enterocolit Enterocolit Diagnosis Active 2018-10 Adry is due to is due to 0-13 Ingrahm Clostridium Clostridium [id number] difficile, difficile, not not specified specified as as recurrent recurrent Raynaud's Raynaud's Diagnosis Active Adry syndrome syndrome Ingrahm without without [id number] gangrene gangrene 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, lymphoma, [id number] unspecified unspecified , , unspecified unspecified site site 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) [id number] (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, seizures, not not intractable intractable , without , without status status epilepticus epilepticus Radiculopat Radiculopat Diagnosis Active Adry hy, lumbar hy, lumbar Ingrahm region region [id number] 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 [id number] 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 [id number] diseases diseases classified classified elsewhere elsewhere Benign Benign Diagnosis Active Adry prostatic prostatic Ingrahm hyperplasia hyperplasia [id number] without without lower lower urinary urinary tract tract symptoms symptoms 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 cy 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 [id number] unspecified unspecified sites in sites in spine spine 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, psoriasis, [id number] unspecified unspecified Other Other Diagnosis Active Adry dysphagia dysphagia Ingrahm [id number] 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 [id number] n n 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 s with s with [id number] current current pathologica pathologica l fracture, l fracture, vertebra(e) vertebra(e) , , subsequent subsequent encounter encounter for for fracture fracture with with routine routine healing healing 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 Active Adry (current) (current) Ingrahm use of use of [id number] antithrombo antithrombo tics/antipl tics/antipl atelets atelets 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 Active Adry (current) (current) Ingrahm use of use of [id number] antibiotics antibiotics senior living senior living Diagnosis Active Adry (current) (current) Ingrahm use of use of [id number] systemic systemic steroids steroids 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 Diagnosis Active Adry (current) (current) Ingrahm use of use of [id number] opiate opiate analgesic analgesic 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 [id number] below knee below knee Personal Personal Diagnosis Active Adry history of history of Ingrahm nicotine nicotine [id number] dependence dependence Pain frequent Pain Mgmt Resolve 2018-102019-07-18 Grace pain d 0-01 13:00:00 (Pennie) 10:30: Mondragon 00 [id number] Cardio edema Cardiovasc Resolve 2018-102019-07-24 Grace ular d 0-01 09:00:00 (Pennie) 10:30: Mondragon 00 [id number] Respiratory dyspnea Respirator Resolve 2018-102019-07-24 Grace present y d 0-01 09:00:00 (Pennie) 10:30: Mondragon 00 [id number] Endo/David anti-coagul Endo/David Resolve 2018-102019-07-18 Grace ation d 0-01 13:00:00 (Pennie) therapy 10:30: Mondragon [id number] Integument skin Integument Resolve 2018-102019-07-24 Grace integrity d 0-01 09:00:00 (Pennie) risk 10:30: Mondragon [id number] Elimination urinary Eliminatio Resolve 2018-102019-07-24 Grace incontinenc n d 0-01 09:00:00 (Pennie) e 10:30: Mondragon 00 [id number] Neuro confusion Neuro/Emot Resolve 2018-102019-09-26 Grace present ion d 0-01 10:25:00 (Pennie) 10:30: Mondragon [id number] Neuro depressive Neuro/Emot Resolve 2018-102019-09-26 Grace feelings ion d 0-01 10:25:00 (Pennie) present 10:30: Mondragon [id number] Neuro impaired Neuro/Emot Resolve 2018-102019-09-26 Grace decision-ma ion d 0-01 10:25:00 (Pennie) guanako 10:30: [id number] Neuro memory Neuro/Emot Resolve 2018-102019-09-26 Grace deficit ion d 0-01 10:25:00 (Pennie) needing 10:30: Mondragon supervision 00 [id number] Activity ADL Activity Resolve 2018-102019-07-24 Grace assistance d 0-01 09:00:00 (Pennie) required 10:30: Mondragon 00 [id number] Activity self-care Activity Resolve 2018-102019-07-24 Grace deficit d 0-01 09:00:00 (Pennie) 10:30: Mondragon 00 [id number] Safety fall risk Safety Resolve 2018-102019-10-03 Grace factor d 0-01 09:30:00 (Pennie) present 10:30: Mondragon [id number] Safety cannot be Safety Resolve 2018-102019-10-03 Grace left alone d 0-01 09:30:00 (Pennie) 10:30: Mondragon [id number] Safety risk for Safety Resolve 2018-102019-10-03 Grace hospitaliza d 0-01 09:30:00 (Pennie) tion 10:30: Mondragon [id number] Medication oral med Meds Resolve 2018-102019-07-18 Grace assistance d 0-01 13:00:00 (Pennie) required 10:30: Mondragon [id number] Musculoskel transfer Musculoske Resolve 2018-102019-07-24 Grace etal assistance letal d 0-01 09:00:00 (Pennie) required 10:30: Mondragon [id number] Musculoskel requires Musculoske Resolve 2018-102019-07-24 Grace etal human letal d 0-01 09:00:00 (Pennie) assist to 10:30: Mondragon leave home 00 [id number] Nutrition nutritional Nutrition Resolve 2018-102019-07-18 Bimal restriction d 0-02 13:00:00 Anguish s 13:46: [id number] Safety structural Safety Resolve 2018-102019-07-24 Bimal barriers d 0-02 09:00:00 Anguish present 13:46: [id number] 00 Safety can be left Safety Resolve 2018-102019-10-03 Bimal alone for d 0-02 09:30:00 Anguish only short 13:46: [id number] periods 00 Balance/End balance/chief cook PT/OT: Active 2018-10 Bimal urance rdination Balance/En 0-02 Anguish deficit durance 13:46: [id number] 00 Balance/End endurance PT/OT: Active 2018-10 Bimal urance deficit Balance/En 0-02 Anguish durance 13:46: [id number] 00 Equipment prosthesis PT/OT: Active 2018-10 Bimal Mgmt mgmt Equipment 0-02 Anguish deficit Mgmt 13:46: [id number] 00 Gait/Locomo gait PT/OT: Active 2018-10 Bimal tion deficit Gait/Locom 0-02 Anguish problems otion 13:46: [id number] 00 Elimination bowel Eliminatio Resolve 2018-102019-07-24 Adry incontinenc n d 0-15 09:00:00 Ingrahm e 10:00: [id number] 00 Gait/Locomo gait PT/OT: Active 2018-10 Bimal tion assistive Gait/Locom 0-18 Anguish problems device otion 10:20: [id number] present 00 Nutrition nutritional Nutrition Resolve 2018-102019-07-24 Adry restriction d 0-22 09:00:00 Ingrahm s 10:00: [id number] 00 Nutrition nutritional Nutrition Resolve 2018-102019-08-14 Adry restriction d 0-29 09:59:00 Ingrahm s 08:46: [id number] 00 Integument skin Integument Active 2018-10 Velvet [...] ulcer d 2-03 09:30:00 Ingrahm present 09:53: [id number] 00 Integument surgical Integument Resolve 2018-102019-10-03 Adry wound d 2-03 09:30:00 Ingrahm present 09:53: [id number] 00 Integument stasis Integument Resolve 2018-102019-10-03 Maylin ulcer d 2-03 09:30:00 Jefferson present 09:53: [id number] 00 Bed transfer PT/OT: Bed Active 2018-10 Bimal Mobility/Tr deficit: Mobility/T 2-03 Anguish ansfer standing ransfer 11:50: [id number] pivot 00 Bed transfer PT/OT: Bed Active 2018-10 Bimal Mobility/Tr deficit: Mobility/T 2-03 Anguish ansfer toilet/comm ransfer 11:50: [id number] ode 00 Bed transfer PT/OT: Bed Active 2018-10 Bimal Mobility/Tr deficit: Mobility/T 2-03 Anguish ansfer shower/tub ransfer 11:50: [id number] 00 Activity self-care Activity Resolve 2019-10-17 Adry deficit d 10-03 10:00:00 Ingrahm 09:30: [id number] 00 Activity ADL Activity Resolve 2019-10-17 Bimal assistance d 10-07 10:00:00 Anguish required 10:38: [id number] 00 Safety risk for Safety Active Bimal hospitaliza 10-07 Anguish tion 10:38: [id number] 00 Safety can be left Safety Active Adry alone for 10-10 Ingrahm only short 11:20: [id number] periods 00 Activity ADL Activity Active Maylin assistance 10-24 Jefferson required 09:40: [id number] 00 Activity self-care Activity Active Adry deficit 10-24 Ingrahm 09:40: [id number] 00 Safety fall risk Safety Active Adry factor 10-24 Ingrahm present 09:40: [id number] 00 Allergies, Adverse Reactions, Alerts Allergy Name [...] MD,May tablet tablet latanoprost latanoprost 2018-10 No Catsillo Unknown Unknown (PF) 0.005 (PF) 0.005 10-23 [...] tablet gram tablet acetaminoph acetaminoph 2018-10 No Catsillo Unknown Unknown en 325 mg en 325 [...]
--- NOTE | 2019-12-09 11:54 | ED ---
Syncope/Near Syncope - HPI Summary HPI Summary: This patient is an 79 y/o male presenting to [facility] via EMS from home for a near syncope episode today. EMS reports patient was at home with physical therapist and when patient was noted to be unresponsive for about 20-25 minutes. Per EMS, stated patient was sitting down when he had a "1000 yard stare" and was not answering any questions. Upon EMS arrival patient was alert and oriented and was incontinent of urine. Additionally EMS states patient's right arm appeared to twitch, but EMS denies any seizure activity. Patient currently denies chest pain, shortness of breath, headache, blurry vision. EMS reports patient has been bradycardic. Per EMS patient had this episode happen one year ago and was placed on seizure medications. Patient was ruled out to have a seizure disorder and seizure medications were discontinued. PMHx significant for right below knee amputation secondary to peripheral vascular disease, orthostatic hypotension, cutaneous lupus erythematosus. Home Medications Medication Instructions Recorded Confirmed Type Finasteride TAB* [Proscar TAB*] 5 mg PO DAILY 04/04/16 12/09/19 History Gabapentin 600 mg PO .NOON 03/25/19 12/09/19 History Multivitamin [Multivitamins] 1 cap PO DAILY 03/25/19 12/09/19 History Atorvastatin Calcium [Lipitor] 40 mg PO DAILY 06/02/19 12/09/19 History Clopidogrel TAB* [Plavix TAB*] 75 mg PO DAILY 06/02/19 12/09/19 History Fludrocortisone Acetate TAB* 1 mg PO DAILY 06/02/19 12/09/19 History [Florinef TAB*] Omeprazole 20 mg PO DAILY 06/02/19 12/09/19 History Sildenafil (PULMONARY)(NF) 10 tab PO DAILY 06/02/19 12/09/19 History [Revatio (NF)] Sodium Chloride TAB* 1 gm PO DAILY 06/02/19 12/09/19 History levETIRAcetam TAB* [Keppra TAB*] 500 mg PO BID 06/02/19 12/09/19 History Oxycodone HCl 5 mg PO Q4H PRN 08/18/19 12/09/19 History Potassium Chlor TAB* [Potassium 10 meq PO BID 08/18/19 12/09/19 History Chlor TAB 20 MEQ*] predniSONE 10 mg TAB [Deltasone 10 5 mg PO DAILY 08/18/19 12/09/19 History MG TAB*] Gabapentin TAB(NF) [Neurontin 600 1,200 mg PO QPM 12/09/19 12/09/19 History mg TAB(NF)] Magnesium Oxide TAB* [MagOx 400 800 mg PO BID 12/09/19 12/09/19 History TAB*] - History Of Current Complaint Hx Obtained From: Patient, EMS Onset/Duration: Lasting Minutes - 20-25 Timing: Minutes Context: Witnessed Associated Head Trauma: No Aggravating Factor(s): Nothing Alleviating Factor(s): Nothing Associated Signs And Symptoms: Other - NEGATIVE: chest pain, shortness of breath , headache, blurry vision. POSITIVE: unresponsive, right arm twitch, incontinent of urine. Related History: Similar Episode/Dx as - 1 year ago - Allergies/Home Medications Allergies/Adverse Reactions: Allergies Allergy/AdvReac Type Severity Reaction Status Date / Time alendronate sodium Allergy Unknown Verified 06/02/19 08:14 Reaction Details azathioprine Allergy Unknown Verified 06/02/19 08:14 Reaction Details benazepril [From Lotensin] Allergy Unknown Verified 06/02/19 08:14 Reaction Details celecoxib Allergy Hives Verified 06/02/19 08:14 cilostazol Allergy Unknown Verified 06/02/19 08:14 Reaction Details clindamycin Allergy Unknown Verified 06/02/19 08:14 Reaction Details glucosamine Allergy Unknown Verified 06/02/19 08:14 Reaction Details hydrochlorothiazide Allergy Unknown Verified 06/02/19 08:14 [From Dyazide] Reaction Details hydroxychloroquine Allergy See Comment Verified 06/02/19 08:14 methotrexate Allergy See Comment Verified 06/02/19 08:14 morphine Allergy See Comment Verified 06/02/19 08:14 Sulfa (Sulfonamide Allergy See Comment Verified 06/02/19 08:15 Antibiotics) triamterene [From Dyazide] Allergy Unknown Verified 06/02/19 08:14 Reaction Details Home Medications: Home Medications Finasteride TAB* [Proscar TAB*] 5 mg PO DAILY 04/04/16 [History Confirmed ] Gabapentin 600 mg PO .NOON 03/25/19 [History Confirmed 12/09/19] Multivitamin [Multivitamins] 1 cap PO DAILY 03/25/19 [History Confirmed 12/09/19 ] Atorvastatin Calcium [Lipitor] 40 mg PO DAILY 06/02/19 [History Confirmed ] Clopidogrel TAB* [Plavix TAB*] 75 mg PO DAILY 06/02/19 [History Confirmed ] Fludrocortisone Acetate TAB* [Florinef TAB*] 1 mg PO DAILY 06/02/19 [History Confirmed 12/09/19] Omeprazole 20 mg PO DAILY 06/02/19 [History Confirmed 12/09/19] Sildenafil (PULMONARY)(NF) [Revatio (NF)] 10 tab PO DAILY 06/02/19 [History Confirmed 12/09/19] Sodium Chloride TAB* 1 gm PO DAILY 06/02/19 [History Confirmed 12/09/19] levETIRAcetam TAB* [Keppra TAB*] 500 mg PO BID 06/02/19 [History Confirmed 12/08] Oxycodone HCl 5 mg PO Q4H PRN 08/18/19 [History Confirmed 12/09/19] Potassium Chlor TAB* [Potassium Chlor TAB 20 MEQ*] 10 meq PO BID 08/18/19 [ History Confirmed 12/09/19] predniSONE 10 mg TAB [Deltasone 10 MG TAB*] 5 mg PO DAILY 08/18/19 [History Confirmed 12/09/19] Gabapentin TAB(NF) [Neurontin 600 mg TAB(NF)] 1,200 mg PO QPM 12/09/19 [History Confirmed 12/09/19] Magnesium Oxide TAB* [MagOx 400 TAB*] 800 mg PO BID 12/09/19 [History Confirmed 12/09/19] levETIRAcetam TAB* [Keppra TAB*] 250 mg PO BID #30 tab 12/09/19 [Rx] PMH/Surg Hx/FS Hx/Imm Hx Endocrine/Hematology History: Denies: Hx Diabetes, Hx Anemia Cardiovascular History: Reports: Hx Hypotension - orthostatic, Hx Hypertension, Hx Peripheral Vascular Disease - 09/13: now on [place] Denies: Hx Angina, Hx Coronary Artery Disease, Hx Hypercholesterolemia, Hx Myocardial Infarction, Hx Pacemaker/ICD, Hx Valvular Heart Disease, Other Cardiovascular Problems/Disorders Respiratory History: Reports: Hx Seasonal Allergies, Other Respiratory Problems/ Disorders - IS BEING TREATED FOR SYSTEMIC FUNGAL INFECTION Denies: Hx Asthma, Hx Chronic Obstructive Pulmonary Disease (COPD) GI History: Reports: Hx Hiatal Hernia Denies: Hx Jaundice History: Reports: Hx Benign Prostatic Hyperplasia Denies: Hx Renal Disease - left kidney damage in 1960's Musculoskeletal History: Reports: Hx Arthritis - polymyalgia rheumatica, Hx Rheumatoid Arthritis, Hx Back Problems, Hx Osteoporosis Sensory History: Reports: Hx Cataracts, Hx Contacts or Glasses, Hx Glaucoma Denies: Hx Legally Blind, Hx Deafness, Hx Hearing Aid Opthamlomology History: Reports: Hx Cataracts, Hx Contacts or Glasses, Hx Glaucoma Denies: Hx Legally Blind Neurological History: Reports: Hx Seizures, Other Neuro Impairments/Disorders - syncope Denies: Hx Headaches Psychiatric History: Denies: Hx Panic Disorder - Surgical History Surgical History: Yes Surgery Procedure, Year, and Place: rotator cuff repair bilat; varicele 20YRS + ; CATARACTS BILAT. Torn ligament in left elbow- over 20yrs ago. Right BKA. tonsilectomy Hx Anesthesia Reactions: No Infectious Disease History: No Infectious Disease History: Denies: Hx Clostridium Difficile, Hx Hepatitis, Hx Human Immunodeficiency Virus (HIV), Hx of Known/Suspected MRSA, Hx Shingles, Hx Tuberculosis, Hx Known/ Suspected VRE, Hx Known/Suspected VRSA, History Other Infectious Disease, Traveled Outside the [place] in Last 30 Days - Family History Known Family History: Positive: Cardiac Disease Negative: Diabetes - Social History Alcohol Use: Occasionally Alcohol Amount: 1-2 day,now has cut back. Hx Substance Use: No Substance Use Type: Reports: None Hx Tobacco Use: Yes Smoking Status (MU): Former Smoker Type: Cigarettes Amount Used/How Often: 1-2 packs in week Have You Smoked in the Last Year: No Review of Systems Negative: Fever Negative: Blurred Vision Negative: Chest Pain Negative: Shortness Of Breath Positive: incontinence - urine Neurological/Mental Status: Other - POSITIVE: unresponsive, right arm twitch Negative: Headache All Other Systems Reviewed And Are Negative: Yes Physical Exam - Summary Physical Exam Summary: VITAL SIGNS: Reviewed. GENERAL: Patient is a well-developed and elderly male who is lying comfortable in the stretcher in no acute distress. HEAD AND FACE: No signs of trauma. No ecchymosis, hematomas or skull depressions. No sinus tenderness. EYES: PERRLA, EOMI x 2, No injected conjunctiva, no nystagmus. EARS: Hearing grossly intact. Ear canals and tympanic membranes are within normal limits. MOUTH: Oropharynx within normal limits. NECK: Supple, trachea is midline, no adenopathy, no JVD, no carotid bruit, no c- spine tenderness, neck with full ROM. CHEST: Symmetric, no tenderness at palpation LUNGS: Clear to auscultation bilaterally. No wheezing or crackles. CVS: Regular rate and rhythm, S1 and S2 present, no murmurs or gallops appreciated. ABDOMEN: Soft, non-tender. No signs of distention. No rebound, no guarding, and no masses palpated. Bowel sounds are normal. EXTREMITIES: Patient has below the knee amputation on the right. FROM in all other major joints, no edema, no cyanosis or clubbing. NEURO: Alert and oriented x 3. No acute neurological deficits. Speech is normal and follows commands. SKIN: Dry and warm GCS: 15 Triage Information Reviewed: Yes Vital Signs On Initial Exam: Initial Vitals Temp Pulse Resp BP Pulse Ox 97 F 48 16 147/58 99 12/09/19 11:46 12/09/19 11:46 12/09/19 11:46 12/09/19 11:46 12/09/19 11:46 Vital Signs Reviewed: Yes Procedures - Sedation Patient Received Moderate/Deep Sedation with Procedure: No Diagnostics - Vital Signs Vital Signs Temp Pulse Resp BP Pulse Ox 12/09/19 11:46 97 F 48 16 147/58 99 - Laboratory Result Diagrams: 12/09/19 12:04 12/09/19 12:04 Lab Statement: Any lab studies that have been ordered have been reviewed, and results considered in the medical decision making process. - Radiology Chest XR Radiology Interpretation Completed By: ED Physician Summary of Radiographic Findings: IMPRESSION: Stigmata of obstructive lung disease. No acute pulmonary or cardiac process evident. Dr. Segal has reviewed this report. - CT Brain CT CT Interpretation Completed By: Radiologist Summary of CT Findings: IMPRESSION: 1. No acute intracranial normality by CT. 2. Moderate chronic small vessel ischemic disease is likely. 3. Mild cerebral volume loss. Dr. Segal has reviewed this report. - EKG 12:06 Cardiac Rate: Bradycardia - at 47 bpm EKG Rhythm: Sinus Bradycardia EKG Comparison: No Significant Change - similar to prior EKG on 08/18/19. Summary of EKG Findings: EKG at 1206 shows sinus bradycardia at a rate of [address] elevations. RBBB. EKG similar to prior on 08/18/19. This EKG was interpreted and reviewed by ED physician. Re-Evaluation - Re-Evaluation First Eval Re-Evaluation Time: 17:00 Comment: Patient was assessed by Dr. Jones, hospitalist, and she recommends discharging the patient home with rx for Keppra and follow up from Dr. Castillo. Course/Dx Assessment/Plan: This patient is an 79 y/o male presenting to [facility] via EMS from home for a near syncope episode today. EMS reports patient was at home with physical therapist and when patient was noted to be unresponsive for about 20-25 minutes. Per EMS, stated patient was sitting down when he had a "1000 yard stare" and was not answering any questions. Upon EMS arrival patient was alert and oriented and was incontinent of urine. Additionally EMS states patient's right arm appeared to twitch, but EMS denies any seizure activity. Patient currently denies chest pain, shortness of breath, headache, blurry vision. EMS reports patient has been bradycardic. Per EMS patient had this episode happen one year ago and was placed on seizure medications. Patient was ruled out to have a seizure disorder and seizure medications were discontinued. PMHx significant for right below knee amputation secondary to peripheral vascular disease, orthostatic hypotension, cutaneous lupus erythematosus. In the ED course the patient was placed in a monitoring and evaluation advisor, IV access was obtained, IV fluids were started. Past medical records were reviewed. Blood test w/o a significant abnormality except for hemoglobin 12.3, hematocrit 36, sodium 134, glucose 141, magnesium 1.8, BNP 357. The first troponin is 0.01. CXR IMPRESSION: #. Stigmata of obstructive lung disease. No acute pulmonary or cardiac process evident. Head CT IMPRESSION: 1. No acute intracranial normality by CT. 2. Moderate chronic small vessel ischemic disease is likely. 3. Mild cerebral volume loss. I discussed my physical exam and test results with Dr. Jones from the hospitalist services and she agrees to admit the patient to her services. The patient is hemodynamically stable, alert and oriented x 3. Patient was assessed by Dr. Jones, hospitalist, and she recommends for the patient to be discharged home with prescription for Keppra. Patient is to follow up with her PCP, Dr. Castillo. Patient is in agreement of this plan. Patient will be discharged home. - Diagnoses Differential Diagnosis/HQI/PQRI: Positive: Cerebral Vascular Accident, Coronary Artery Disease, Dysrhythmia, Hypoglycemia, Metabolic Reaction, Seizure, Transient Ischemic Attack, Vasovagal Episode Provider Diagnoses: Seizure, Syncope - Physician Notifications Discussed Care of Patient With: Erin Jones - hospitalist Time Discussed With Above Provider: 14:52 Instructed by Provider To: Admit As Inpatient Discharge ED - Sign-Out/Discharge Documenting (check all that apply): Patient Departure - Discharge home - Discharge Plan Condition: Stable Disposition: HOME Prescriptions: levETIRAcetam TAB* [Keppra TAB*] 250 mg PO BID #30 tab Patient Education Materials: Recurrent Seizures in Adults (ED) Referrals: May Castillo MD [Primary Care Provider] - Additional Instructions: FOLLOW UP WITH YOUR PRIMARY CARE PROVIDER IN 2-3 DAYS. RETURN TO THE ED FOR ANY NEW OR WORSENING SYMPTOMS. - Billing Disposition and Condition Condition: STABLE Disposition: Home - Attestation Statements Document Initiated by Eliase: Yes Documenting Scribe: Erin Whaley Provider For Whom Eliase is Documenting (Include Credential): Damaso Segal MD Scribe Attestation: Erin Keller, scribed for Damaso Segal MD on 12/13/19 at 1755. Scribe Documentation Reviewed: Yes Provider Attestation: The documentation as recorded by the Erin layne accurately reflects the service I personally performed and the decisions made by me, Damaso Segal MD Status of Scribe Document: Viewed
--- OUTSIDE RECORDS SUMMARY | 2019-12-09 11:54 | XMS REPORT ---
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, disease, [id number] unspecified unspecified 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 [id number] [place]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 without angina angina pectoris pectoris Essential Essential Diagnosis Active Adry (primary) (primary) 1 Ingrahm hypertensio hypertensio [id number] n n 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 Ingrahm [id number] Enterocolit Enterocolit Diagnosis Active 2018-10 Adry is due to is due to 0-13 Ingrahm Clostridium Clostridium [id number] difficile, difficile, not not specified specified as as recurrent recurrent Raynaud's Raynaud's Diagnosis Active Adry syndrome syndrome Ingrahm without without [id number] gangrene gangrene 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, lymphoma, [id number] unspecified unspecified , , unspecified unspecified site site 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) [id number] (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, seizures, not not intractable intractable , without , without status status epilepticus epilepticus Radiculopat Radiculopat Diagnosis Active Adry hy, lumbar hy, lumbar Ingrahm region region [id number] 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 [id number] 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 [id number] diseases diseases classified classified elsewhere elsewhere Benign Benign Diagnosis Active Adry prostatic prostatic Ingrahm hyperplasia hyperplasia [id number] without without lower lower urinary urinary tract tract symptoms symptoms 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 [id number] insufficien insufficien cy 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 [id number] unspecified unspecified sites in sites in spine spine 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, psoriasis, SF243231 unspecified unspecified Other Other Diagnosis Active Adry dysphagia dysphagia Ingrahm [id number] 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 [id number] n n 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 s with s with [id number] current current pathologica pathologica l fracture, l fracture, vertebra(e) vertebra(e) , , subsequent subsequent encounter encounter for for fracture fracture with with routine routine healing healing USP USP Diagnosis Active Adry (current) (current) Ingrahm use of use of [id number] antithrombo antithrombo tics/antipl tics/antipl atelets atelets 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 Adry (current) (current) Ingrahm use of use of [id number] antibiotics antibiotics USP 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 Adry (current) (current) Ingrahm use of use of TS182307 systemic systemic steroids steroids USP USP Diagnosis Active Adry (current) (current) Ingrahm use of use of [id number] opiate opiate analgesic analgesic 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 [id number] below knee below knee Personal Personal Diagnosis Active Adry history of history of Ingrahm nicotine nicotine [id number] dependence dependence Pain frequent Pain Mgmt Resolve 2018-102019-07-18 Grace pain d 0-01 13:00:00 (Pennie) 10:30: Mondragon 00 [id number] Cardio edema Cardiovasc Resolve 2018-102019-07-24 Grace ular d 0-01 09:00:00 (Pennie) 10:30: Mondragon 00 [id number] Respiratory dyspnea Respirator Resolve 2018-102019-07-24 Grace present y d 0-01 09:00:00 (Pennie) 10:30: Mondragon 00 [id number] Endo/David anti-coagul Endo/David Resolve 2018-102019-07-18 Grace ation d 0-01 13:00:00 (Pennie) therapy 10:30: Mondragon [id number] Integument skin Integument Resolve 2018-102019-07-24 Grace integrity d 0-01 09:00:00 (Pennie) risk 10:30: Mondragon [id number] Elimination urinary Eliminatio Resolve 2018-102019-07-24 Grace incontinenc n d 0-01 09:00:00 (Pennie) e 10:30: Mondragon 00 [id number] Neuro confusion Neuro/Emot Resolve 2018-102019-09-26 Grace present ion d 0-01 10:25:00 (Pennie) 10:30: Mondragon [id number] Neuro depressive Neuro/Emot Resolve 2018-102019-09-26 Grace feelings ion d 0-01 10:25:00 (Pennie) present 10:30: Mondragon [id number] Neuro impaired Neuro/Emot Resolve 2018-102019-09-26 Grace decision-ma ion d 0-01 10:25:00 (Pennie) guanako 10:30: [id number] Neuro memory Neuro/Emot Resolve 2018-102019-09-26 Grace deficit ion d 0-01 10:25:00 (Pennie) needing 10:30: Mondragon supervision 00 [id number] Activity ADL Activity Resolve 2018-102019-07-24 Grace assistance d 0-01 09:00:00 (Pennie) required 10:30: Mondragon 00 [id number] Activity self-care Activity Resolve 2018-102019-07-24 Grace deficit d 0-01 09:00:00 (Pennie) 10:30: Mondragon 00 [id number] Safety fall risk Safety Resolve 2018-102019-10-03 Grace factor d 0-01 09:30:00 (Pennie) present 10:30: Mondragon [id number] Safety cannot be Safety Resolve 2018-102019-10-03 Grace left alone d 0-01 09:30:00 (Pennie) 10:30: Mondragon [id number] Safety risk for Safety Resolve 2018-102019-10-03 Grace hospitaliza d 0-01 09:30:00 (Pennie) tion 10:30: Mondragon [id number] Medication oral med Meds Resolve 2018-102019-07-18 Grace assistance d 0-01 13:00:00 (Pennie) required 10:30: Mondragon [id number] Musculoskel transfer Musculoske Resolve 2018-102019-07-24 Grace etal assistance letal d 0-01 09:00:00 (Pennie) required 10:30: Mondragon [id number] Musculoskel requires Musculoske Resolve 2018-102019-07-24 Grace etal human letal d 0-01 09:00:00 (Pennie) assist to 10:30: Mondragon leave home 00 [id number] Nutrition nutritional Nutrition Resolve 2018-102019-07-18 Bimal restriction d 0-02 13:00:00 Anguish s 13:46: [id number] 00 Safety structural Safety Resolve 2018-102019-07-24 Bimal barriers d 0-02 09:00:00 Anguish present 13:46: [id number] 00 Safety can be left Safety Resolve 2018-102019-10-03 Bimal alone for d 0-02 09:30:00 Anguish only short 13:46: [id number] periods 00 Balance/End balance/spa experience coordinator PT/OT: Active 2018-10 Bimal urance rdination Balance/En 0-02 Anguish deficit durance 13:46: [id number] 00 Balance/End endurance PT/OT: Active 2018-10 Bimal urance deficit Balance/En 0-02 Anguish durance 13:46: [id number] 00 Equipment prosthesis PT/OT: Active 2018-10 Bimal Mgmt mgmt Equipment 0-02 Anguish deficit Mgmt 13:46: [id number] 00 Gait/Locomo gait PT/OT: Active 2018-10 Bimal tion deficit Gait/Locom 0-02 Anguish problems otion 13:46: [id number] 00 Elimination bowel Eliminatio Resolve 2018-102019-07-24 Adry incontinenc n d 0-15 09:00:00 Ingrahm e 10:00: [id number] 00 Gait/Locomo gait PT/OT: Active 2018-10 Bimal tion assistive Gait/Locom 0-18 Anguish problems device otion 10:20: [id number] present 00 Nutrition nutritional Nutrition Resolve 2018-102019-07-24 Adry restriction d 0-22 09:00:00 Ingrahm s 10:00: [id number] 00 Nutrition nutritional Nutrition Resolve 2018-102019-08-14 Adry restriction d 0-29 09:59:00 Ingrahm s 08:46: [id number] 00 Integument skin Integument Active 2018-10 Velvet [...] ulcer d 2-03 09:30:00 Ingrahm present 09:53: [id number] 00 Integument surgical Integument Resolve 2018-102019-10-03 Adry wound d 2-03 09:30:00 Ingrahm present 09:53: [id number] 00 Integument stasis Integument Resolve 2018-102019-10-03 Maylin ulcer d 2-03 09:30:00 Jefferson present 09:53: [id number] 00 Bed transfer PT/OT: Bed Active 2018-10 Bimal Mobility/Tr deficit: Mobility/T 2-03 Anguish ansfer standing ransfer 11:50: [id number] pivot 00 Bed transfer PT/OT: Bed Active 2018-10 Bimal Mobility/Tr deficit: Mobility/T 2-03 Anguish ansfer toilet/comm ransfer 11:50: [id number] ode 00 Bed transfer PT/OT: Bed Active 2018-10 Bimal Mobility/Tr deficit: Mobility/T 2-03 Anguish ansfer shower/tub ransfer 11:50: [id number] 00 Activity self-care Activity Resolve 2019-10-17 Adry deficit d 10-03 10:00:00 Ingrahm 09:30: [id number] 00 Activity ADL Activity Resolve 2019-10-17 Bimal assistance d 10-07 10:00:00 Anguish required 10:38: [id number] 00 Safety risk for Safety Active Bimal hospitaliza 10-07 Anguish tion 10:38: [id number] 00 Safety can be left Safety Active Adry alone for 10-10 Ingrahm only short 11:20: [id number] periods 00 Activity ADL Activity Active Maylin assistance 10-24 Jefferson required 09:40: [id number] 00 Activity self-care Activity Active Adry deficit 10-24 Ingrahm 09:40: [id number] 00 Safety fall risk Safety Active Adry factor 10-24 Ingrahm present 09:40: [id number] 00 Allergies, Adverse Reactions, Alerts Allergy Name [...] 008-23 MD,May tablet tablet latanoprost latanoprost 2018-10 Yes Castillo Unknown Unknown (PF) 0.005 (PF) 0.005 10-23 MD,May % eye drops % eye drops oxyCODONE 5 oxyCODONE 5 2018-10 Yes Castillo Unknown Unknown mg tablet mg tablet 10-23 MD,May albuterol albuterol 2018-10 Yes Castillo Unknown Unknown sulfate 2.5 sulfate 2.5 10-23 MD,May mg/3 mL mg/3 mL (0.083 %) (0.083 %) solution solution for for nebulizatio nebulizatio n n sodium sodium 2018-10 No Castillo Unknown Unknown chloride 1 chloride 1 08-23 MD,May gram tablet gram tablet acetaminoph acetaminoph 2018-10 Yes Castillo Unknown Unknown en 325 mg en 325 mg 10-23 MD,May capsule capsule sildenafil sildenafil No Castillo Unknown Unknown (pulmonary (pulmonary ,May hypertensio hypertensio n) 20 mg n) 20 mg tablet tablet fludrocorti fludrocorti 2018-10 No Castillo Unknown Unknown sone 0.1 mg sone 0.1 mg 0 MD,May tablet tablet atorvastati atorvastati 2018-10 Yes Castillo Unknown Unknown n 40 mg n 40 mg 10-23 MD,May tablet tablet Calcium 600 Calcium 600 No Castillo Unknown Unknown + D(3) 600 + D(3) 600 MD,May mg mg calcium-200 calcium-200 unit unit capsule capsule Centrum Centrum 2018-10 Yes Castillo Unknown Unknown Silver Men Silver Men [...] Castillo Unknown Unknown chloride ER chloride ER - MD,May 20 mEq 20 mEq tablet,exte tablet,exte nded nded release(par release(par t/cryst) t/cryst) vancomycin vancomycin 2018-10- No Castillo Unknown Unknown 125 mg 125 mg 11-12 MD,May capsule capsule magnesium magnesium 2018-10 Yes Castillo Unknown Unknown 250 mg (as 250 mg (as 10-23 May LANDAVERDE magnesium magnesium oxide) oxide) tablet tablet potassium potassium 2018-10 Yes Castillo Unknown Unknown chloride ER chloride ER 10-23 MD,May 20 mEq 20 mEq tablet,exte tablet,exte nded nded release(par release(par t/cryst) t/cryst) omeprazole omeprazole 2018-10 Yes Castillo Unknown Unknown 20 mg 20 mg 10-23 MD,May capsule,del capsule,del ayed ayed release release doxycycline doxycycline 2018-10- Yes Castillo Unknown Unknown hyclate 100 hyclate 100 10-23 MD,May mg capsule mg capsule sodium sodium 2018-10 Yes Castillo Unknown Unknown chloride 1 chloride 1 10-23 MD,May gram tablet gram tablet gabapentin gabapentin 2018-10 Yes Castillo Unknown Unknown 600 mg 600 mg 10-23 MD,May tablet tablet Vital Signs Vital Name Observation Time Observation Value Comments SYSTOLIC mm[Hg] 2019-11-14 18:10:23 116 mm[Hg] mm[Hg] Method: Sit SYSTOLIC mm[Hg] 2019-07-06 18:08:12 130 mm[Hg] mm[Hg] Method: Stand DIASTOLIC mm[Hg] 2019-11-14 18:10:23 68 mm[Hg] mm[Hg] Method: Sit DIASTOLIC mm[Hg] 2019-07-06 18:08:12 90 mm[Hg] mm[Hg] Method: Stand PULSE 2019-11-14 18:10:23 73 /min /min RESP RATE 2019-11-02 18:10:11 16 /min /min TEMP 2019-11-14 18:10:23 98.0 [degF] Procedures This patient has no known procedures. Results This patient has no known results.
--- OUTSIDE RECORDS SUMMARY | 2019-12-09 11:54 | XMS REPORT ---
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, disease, [id number] unspecified unspecified 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 pectoris pectoris Essential Essential Diagnosis Active Adry (primary) (primary) 1 Ingrahm hypertensio hypertensio [id number] n n 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 Ingrahm [id number] Enterocolit Enterocolit Diagnosis Active 2018-10 Adry is due to is due to 0-13 Ingrahm Clostridium Clostridium [id number] difficile, difficile, not not specified specified as as recurrent recurrent Raynaud's Raynaud's Diagnosis Active Adry syndrome syndrome Ingrahm without without [id number] gangrene gangrene 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, lymphoma, 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 unspecified , , unspecified unspecified site site 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) [id number] (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, seizures, not not intractable intractable , without , without status status epilepticus epilepticus Radiculopat Radiculopat Diagnosis Active Adry hy, lumbar hy, lumbar Ingrahm region region [id number] 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 [id number] 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 [id number] diseases diseases classified classified elsewhere elsewhere Benign Benign Diagnosis Active Adry prostatic prostatic Ingrahm hyperplasia hyperplasia [id number] without without lower lower urinary urinary tract tract symptoms symptoms 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 [id number] unspecified unspecified sites in sites in spine spine 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, psoriasis, [id number] unspecified unspecified Other Other Diagnosis Active Adry dysphagia dysphagia Ingrahm [id number] 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 [id number] n n 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 s with s with [id number] current current pathologica pathologica l fracture, l fracture, vertebra(e) vertebra(e) , , subsequent subsequent encounter encounter for for fracture fracture with with routine routine healing healing longterm longterm Diagnosis Active Adry (current) (current) Ingrahm use of use of [id number] antithrombo antithrombo tics/antipl tics/antipl atelets atelets 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 Diagnosis Active Adry (current) (current) Ingrahm use of use of [id number] antibiotics antibiotics longterm intermediate project manager Diagnosis Active Adry (current) (current) Ingrahm use of use of [id number] systemic systemic steroids steroids longterm longterm Diagnosis Active Adry (current) (current) Ingrahm use of use of [id number] opiate opiate analgesic analgesic 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 [id number] below knee below knee Personal Personal Diagnosis Active Adry history of history of Ingrahm nicotine nicotine [id number] dependence dependence Pain frequent Pain Mgmt Resolve 2018-102019-07-18 Grace pain d 0-01 13:00:00 (Pennie) 10:30: Mondragon 00 [id number] Cardio edema Cardiovasc Resolve 2018-102019-07-24 Grace ular d 0-01 09:00:00 (Pennie) 10:30: Mondragon 00 [id number] Respiratory dyspnea Respirator Resolve 2018-102019-07-24 Grace present y d 0-01 09:00:00 (Pennie) 10:30: Mondragon 00 [id number] Endo/David anti-coagul Endo/David Resolve 2018-102019-07-18 Grace ation d 0-01 13:00:00 (Pennie) therapy 10:30: Mondragon [id number] Integument skin Integument Resolve 2018-102019-07-24 Grace integrity d 0-01 09:00:00 (Pennie) risk 10:30: Mondragon [id number] Elimination urinary Eliminatio Resolve 2018-102019-07-24 Grace incontinenc n d 0-01 09:00:00 (Pennie) e 10:30: Mondragon 00 [id number] Neuro confusion Neuro/Emot Resolve 2018-102019-09-26 Grace present ion d 0-01 10:25:00 (Pennie) 10:30: Mondragon [id number] Neuro depressive Neuro/Emot Resolve 2018-102019-09-26 Grace feelings ion d 0-01 10:25:00 (Pennie) present 10:30: Mondragon [id number] Neuro impaired Neuro/Emot Resolve 2018-102019-09-26 Grace decision-ma ion d 0-01 10:25:00 (Pennie) guanako 10:30: [id number] Neuro memory Neuro/Emot Resolve 2018-102019-09-26 Grace deficit ion d 0-01 10:25:00 (Pennie) needing 10:30: Mondragon supervision 00 [id number] Activity ADL Activity Resolve 2018-102019-07-24 Grace assistance d 0-01 09:00:00 (Pennie) required 10:30: Mondragon 00 [id number] Activity self-care Activity Resolve 2018-102019-07-24 Grace deficit d 0-01 09:00:00 (Pennie) 10:30: Mondragon 00 [id number] Safety fall risk Safety Resolve 2018-102019-10-03 Grace factor d 0-01 09:30:00 (Pennie) present 10:30: Mondragon [id number] Safety cannot be Safety Resolve 2018-102019-10-03 Grace left alone d 0-01 09:30:00 (Pennie) 10:30: Mondragon [id number] Safety risk for Safety Resolve 2018-102019-10-03 Grace hospitaliza d 0-01 09:30:00 (Pennie) tion 10:30: Mondragon [id number] Medication oral med Meds Resolve 2018-102019-07-18 Grace assistance d 0-01 13:00:00 (Pennie) required 10:30: Mondragon [id number] Musculoskel transfer Musculoske Resolve 2018-102019-07-24 Grace etal assistance letal d 0-01 09:00:00 (Pennie) required 10:30: Mondragon [id number] Musculoskel requires Musculoske Resolve 2018-102019-07-24 Grace etal human letal d 0-01 09:00:00 (Pennie) assist to 10:30: Mondragon leave home 00 [id number] Nutrition nutritional Nutrition Resolve 2018-102019-07-18 Bimal restriction d 0-02 13:00:00 Anguish s 13:46: [id number] 00 Safety structural Safety Resolve 2018-102019-07-24 Bimal barriers d 0-02 09:00:00 Anguish present 13:46: [id number] 00 Safety can be left Safety Resolve 2018-102019-10-03 Bimal alone for d 0-02 09:30:00 Anguish only short 13:46: [id number] periods 00 Balance/End balance/academic success coordinator PT/OT: Active 2018-10 Bimal urance rdination Balance/En 0-02 Anguish deficit durance 13:46: [id number] 00 Balance/End endurance PT/OT: Active 2018-10 Bimal urance deficit Balance/En 0-02 Anguish durance 13:46: [id number] 00 Equipment prosthesis PT/OT: Active 2018-10 Bimal Mgmt mgmt Equipment 0-02 Anguish deficit Mgmt 13:46: [id number] 00 Gait/Locomo gait PT/OT: Active 2018-10 Bimal tion deficit Gait/Locom 0-02 Anguish problems otion 13:46: [id number] 00 Elimination bowel Eliminatio Resolve 2018-102019-07-24 Adry incontinenc n d 0-15 09:00:00 Ingrahm e 10:00: [id number] 00 Gait/Locomo gait PT/OT: Active 2018-10 Bimal tion assistive Gait/Locom 0-18 Anguish problems device otion 10:20: [id number] present 00 Nutrition nutritional Nutrition Resolve 2018-102019-07-24 Adry restriction d 0-22 09:00:00 Ingrahm s 10:00: [id number] 00 Nutrition nutritional Nutrition Resolve 2018-102019-08-14 Adry restriction d 0-29 09:59:00 Ingrahm s 08:46: [id number] 00 Integument skin Integument Active 2018-10 Velvet [...] ulcer d 2-03 09:30:00 Ingrahm present 09:53: [id number] 00 Integument surgical Integument Resolve 2018-102019-10-03 Adry wound d 2-03 09:30:00 Ingrahm present 09:53: [id number] 00 Integument stasis Integument Resolve 2018-102019-10-03 Maylin ulcer d 2-03 09:30:00 Jefferson present 09:53: [id number] 00 Bed transfer PT/OT: Bed Active 2018-10 Bimal Mobility/Tr deficit: Mobility/T 2-03 Anguish ansfer standing ransfer 11:50: [id number] pivot 00 Bed transfer PT/OT: Bed Active 2018-10 Bimal Mobility/Tr deficit: Mobility/T 2-03 Anguish ansfer toilet/comm ransfer 11:50: [id number] ode 00 Bed transfer PT/OT: Bed Active 2018-10 Bimal Mobility/Tr deficit: Mobility/T 2-03 Anguish ansfer shower/tub ransfer 11:50: [id number] 00 Activity self-care Activity Resolve 2019-10-17 Adry deficit d 10-03 10:00:00 Ingrahm 09:30: [id number] 00 Activity ADL Activity Resolve 2019-10-17 Bimal assistance d 10-07 10:00:00 Anguish required 10:38: [id number] 00 Safety risk for Safety Active Bimal hospitaliza 10-07 Anguish tion 10:38: [id number] 00 Safety can be left Safety Active Adry alone for 10-10 Ingrahm only short 11:20: [id number] periods 00 Activity ADL Activity Active Maylin assistance 10-24 Jefferson required 09:40: [id number] 00 Activity self-care Activity Active Adry deficit 10-24 Ingrahm 09:40: [id number] 00 Safety fall risk Safety Active Adry factor 10-24 Ingrahm present 09:40: [id number] 00 Allergies, Adverse Reactions, Alerts Allergy Name [...] Observation Time Observation Value Comments SYSTOLIC mm[Hg] 2019-11-13 18:10:22 108 mm[Hg] mm[Hg] Method: Sit SYSTOLIC mm[Hg] 2019-07-06 18:08:12 130 mm[Hg] mm[Hg] Method: Stand DIASTOLIC mm[Hg] 2019-11-13 18:10:22 60 mm[Hg] mm[Hg] Method: Sit DIASTOLIC mm[Hg] 2019-07-06 18:08:12 90 mm[Hg] mm[Hg] Method: Stand PULSE 2019-11-13 18:10:22 60 /min /min RESP RATE 2019-11-02 18:10:11 16 /min /min TEMP 2019-11-13 18:10:22 98 [degF] Procedures This patient has no known procedures. Results This patient has no known results.
--- OUTSIDE RECORDS SUMMARY | 2019-12-09 11:54 | XMS REPORT ---
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, disease, [id number] unspecified unspecified 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 [id number] [place]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 without angina angina pectoris pectoris Essential Essential Diagnosis Active Adry (primary) (primary) 1 Ingrahm hypertensio hypertensio [id number] n n 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 Ingrahm [id number] Enterocolit Enterocolit Diagnosis Active 2018-10 Adry is due to is due to 0-13 Ingrahm Clostridium Clostridium [id number] difficile, difficile, not not specified specified as as recurrent recurrent Raynaud's Raynaud's Diagnosis Active Adry syndrome syndrome Ingrahm without without [id number] gangrene gangrene 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, lymphoma, [id number] unspecified unspecified , , unspecified unspecified site site 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) [id number] (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, seizures, not not intractable intractable , without , without status status epilepticus epilepticus Radiculopat Radiculopat Diagnosis Active Adry hy, lumbar hy, lumbar Ingrahm region region [id number] 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 [id number] 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 [id number] diseases diseases classified classified elsewhere elsewhere Benign Benign Diagnosis Active Adry prostatic prostatic Ingrahm hyperplasia hyperplasia [id number] without without lower lower urinary urinary tract tract symptoms symptoms 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 cy 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 [id number] unspecified unspecified sites in sites in spine spine 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, psoriasis, IE571649 unspecified unspecified Other Other Diagnosis Active Adry dysphagia dysphagia Ingrahm [id number] 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 [id number] n n 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 s with s with [id number] current current pathologica pathologica l fracture, l fracture, vertebra(e) vertebra(e) , , subsequent subsequent encounter encounter for for fracture fracture with with routine routine healing healing nursing home nursing home Diagnosis Active Adry (current) (current) Ingrahm use of use of [id number] antithrombo antithrombo tics/antipl tics/antipl atelets atelets 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 Ardy (current) (current) Ingrahm use of use of [id number] antibiotics antibiotics nursing home 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 use of use of [id number] systemic systemic steroids steroids nursing home nursing home Diagnosis Active Adry (current) (current) Ingrahm use of use of [id number] opiate opiate analgesic analgesic 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 LL408445 below knee below knee Personal Personal Diagnosis Active Adry history of history of Ingrahm nicotine nicotine [id number] dependence dependence Pain frequent Pain Mgmt Resolve 2018-102019-07-18 Grace pain d 0-01 13:00:00 (Pennie) 10:30: Mondragon 00 [id number] Cardio edema Cardiovasc Resolve 2018-102019-07-24 Grace ular d 0-01 09:00:00 (Pennie) 10:30: Mondragon 00 [id number] Respiratory dyspnea Respirator Resolve 2018-102019-07-24 Grace present y d 0-01 09:00:00 (Pennie) 10:30: Mondragon 00 [id number] Endo/David anti-coagul Endo/David Resolve 2018-102019-07-18 Grace ation d 0-01 13:00:00 (Pennie) therapy 10:30: Mondragon [id number] Integument skin Integument Resolve 2018-102019-07-24 Grace integrity d 0-01 09:00:00 (Pennie) risk 10:30: Mondragon [id number] Elimination urinary Eliminatio Resolve 2018-102019-07-24 Grace incontinenc n d 0-01 09:00:00 (Pennie) e 10:30: Mondragon 00 [id number] Neuro confusion Neuro/Emot Resolve 2018-102019-09-26 Grace present ion d 0-01 10:25:00 (Pennie) 10:30: Mondragon [id number] Neuro depressive Neuro/Emot Resolve 2018-102019-09-26 Grace feelings ion d 0-01 10:25:00 (Pennie) present 10:30: Mondragon [id number] Neuro impaired Neuro/Emot Resolve 2018-102019-09-26 Grace decision-ma ion d 0-01 10:25:00 (Pennie) guanako 10:30: [id number] Neuro memory Neuro/Emot Resolve 2018-102019-09-26 Grace deficit ion d 0-01 10:25:00 (Pennie) needing 10:30: Mondragon supervision 00 [id number] Activity ADL Activity Resolve 2018-102019-07-24 Grace assistance d 0-01 09:00:00 (Pennie) required 10:30: Mondragon 00 [id number] Activity self-care Activity Resolve 2018-102019-07-24 Grace deficit d 0-01 09:00:00 (Pennie) 10:30: Mondragon 00 [id number] Safety fall risk Safety Resolve 2018-102019-10-03 Grace factor d 0-01 09:30:00 (Pennie) present 10:30: Mondragon [id number] Safety cannot be Safety Resolve 2018-102019-10-03 Grace left alone d 0-01 09:30:00 (Pennie) 10:30: Mondragon [id number] Safety risk for Safety Resolve 2018-102019-10-03 Grace hospitaliza d 0-01 09:30:00 (Pennie) tion 10:30: Mondragon [id number] Medication oral med Meds Resolve 2018-102019-07-18 Grace assistance d 0-01 13:00:00 (Pennie) required 10:30: Mondragon [id number] Musculoskel transfer Musculoske Resolve 2018-102019-07-24 Grace etal assistance letal d 0-01 09:00:00 (Pennie) required 10:30: Mondragon [id number] Musculoskel requires Musculoske Resolve 2018-102019-07-24 Grace etal human letal d 0-01 09:00:00 (Pennie) assist to 10:30: Mondragon leave home 00 [id number] Nutrition nutritional Nutrition Resolve 2018-102019-07-18 Bimal restriction d 0-02 13:00:00 Anguish s 13:46: [id number] 00 Safety structural Safety Resolve 2018-102019-07-24 Bimal barriers d 0-02 09:00:00 Anguish present 13:46: [id number] 00 Safety can be left Safety Resolve 2018-102019-10-03 Bimal alone for d 0-02 09:30:00 Anguish only short 13:46: [id number] periods 00 Balance/End balance/group reservations coordinator PT/OT: Active 2018-10 Bimal urance rdination Balance/En 0-02 Anguish deficit durance 13:46: [id number] 00 Balance/End endurance PT/OT: Active 2018-10 Bimal urance deficit Balance/En 0-02 Anguish durance 13:46: [id number] 00 Equipment prosthesis PT/OT: Active 2018-10 Bimal Mgmt mgmt Equipment 0-02 Anguish deficit Mgmt 13:46: [id number] 00 Gait/Locomo gait PT/OT: Active 2018-10 Bimal tion deficit Gait/Locom 0-02 Anguish problems otion 13:46: [id number] 00 Elimination bowel Eliminatio Resolve 2018-102019-07-24 Adry incontinenc n d 0-15 09:00:00 Ingrahm e 10:00: [id number] 00 Gait/Locomo gait PT/OT: Active 2018-10 Bimal tion assistive Gait/Locom 0-18 Anguish problems device otion 10:20: [id number] present 00 Nutrition nutritional Nutrition Resolve 2018-102019-07-24 Adry restriction d 0-22 09:00:00 Ingrahm s 10:00: [id number] 00 Nutrition nutritional Nutrition Resolve 2018-102019-08-14 Adry restriction d 0-29 09:59:00 Ingrahm s 08:46: [id number] 00 Integument skin Integument Active 2018-10 Velvet [...] ulcer d 2-03 09:30:00 Ingrahm present 09:53: [id number] 00 Integument surgical Integument Resolve 2018-102019-10-03 Adry wound d 2-03 09:30:00 Ingrahm present 09:53: [id number] 00 Integument stasis Integument Resolve 2018-102019-10-03 Maylin ulcer d 2-03 09:30:00 Jefferson present 09:53: [id number] 00 Bed transfer PT/OT: Bed Active 2018-10 Bimal Mobility/Tr deficit: Mobility/T 2-03 Anguish ansfer standing ransfer 11:50: [id number] pivot 00 Bed transfer PT/OT: Bed Active 2018-10 Bimal Mobility/Tr deficit: Mobility/T 2-03 Anguish ansfer toilet/comm ransfer 11:50: [id number] ode 00 Bed transfer PT/OT: Bed Active 2018-10 Bimal Mobility/Tr deficit: Mobility/T 2-03 Anguish ansfer shower/tub ransfer 11:50: [id number] 00 Activity self-care Activity Resolve 2019-10-17 Adry deficit d 10-03 10:00:00 Ingrahm 09:30: [id number] 00 Activity ADL Activity Resolve 2019-10-17 Bimal assistance d 10-07 10:00:00 Anguish required 10:38: [id number] 00 Safety risk for Safety Active Bimal hospitaliza 10-07 Anguish tion 10:38: [id number] 00 Safety can be left Safety Active Adry alone for 10-10 Ingrahm only short 11:20: [id number] periods 00 Activity ADL Activity Active Maylin assistance 10-24 Jefferson required 09:40: [id number] 00 Activity self-care Activity Active Adry deficit 10-24 Ingrahm 09:40: [id number] 00 Safety fall risk Safety Active Adry factor 10-24 Ingrahm present 09:40: [id number] 00 Allergies, Adverse Reactions, Alerts Allergy Name [...]
--- OUTSIDE RECORDS SUMMARY | 2019-12-09 11:54 | XMS REPORT ---
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, disease, [id number] unspecified unspecified 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 pectoris pectoris Essential Essential Diagnosis Active Adry (primary) (primary) 1 Ingrahm hypertensio hypertensio [id number] n n 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 Ingrahm [id number] Enterocolit Enterocolit Diagnosis Active 2018-10 Adry is due to is due to 0-13 Ingrahm Clostridium Clostridium [id number] difficile, difficile, not not specified specified as as recurrent recurrent Raynaud's Raynaud's Diagnosis Active Adry syndrome syndrome Ingrahm without without [id number] gangrene gangrene 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, lymphoma, 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 unspecified unspecified , , unspecified unspecified site site 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) [id number] (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, seizures, not not intractable intractable , without , without status status epilepticus epilepticus Radiculopat Radiculopat Diagnosis Active Adry hy, lumbar hy, lumbar Ingrahm region region [id number] 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 [id number] diseases diseases classified classified elsewhere elsewhere Benign Benign Diagnosis Active Adry prostatic prostatic Ingrahm hyperplasia hyperplasia [id number] without without lower lower urinary urinary tract tract symptoms symptoms 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 [id number] unspecified unspecified sites in sites in spine spine 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, psoriasis, [id number] unspecified unspecified Other Other Diagnosis Active Adry dysphagia dysphagia Ingrahm [id number] 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 [id number] n n 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 s with s with [id number] current current pathologica pathologica l fracture, l fracture, vertebra(e) vertebra(e) , , subsequent subsequent encounter encounter for for fracture fracture with with routine routine healing healing senior living senior living Diagnosis Active Adry (current) (current) Ingrahm use of use of [id number] antithrombo antithrombo tics/antipl tics/antipl atelets 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 intermediates Diagnosis Active Adry (current) (current) Ingrahm use of use of [id number] antibiotics antibiotics 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 intermediates Diagnosis Active Adry (current) (current) Ingrahm use of use of [id number] systemic systemic steroids steroids senior living senior living Diagnosis Active Adry (current) (current) Ingrahm use of use of [id number] opiate opiate analgesic analgesic 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 [id number] below knee below knee Personal Personal Diagnosis Active Adry history of history of Ingrahm nicotine nicotine [id number] dependence dependence Pain frequent Pain Mgmt Resolve 2018-102019-07-18 Grace pain d 0-01 13:00:00 (Pennie) 10:30: Mondragon 00 [id number] Cardio edema Cardiovasc Resolve 2018-102019-07-24 Grace ular d 0-01 09:00:00 (Pennie) 10:30: Mondragon 00 [id number] Respiratory dyspnea Respirator Resolve 2018-102019-07-24 Grace present y d 0-01 09:00:00 (Pennie) 10:30: Mondragon 00 [id number] Endo/David anti-coagul Endo/David Resolve 2018-102019-07-18 Grace ation d 0-01 13:00:00 (Pennie) therapy 10:30: Mondragon [id number] Integument skin Integument Resolve 2018-102019-07-24 Grace integrity d 0-01 09:00:00 (Pennie) risk 10:30: Mondragon [id number] Elimination urinary Eliminatio Resolve 2018-102019-07-24 Grace incontinenc n d 0-01 09:00:00 (Pennie) e 10:30: Mondragon 00 [id number] Neuro confusion Neuro/Emot Resolve 2018-102019-09-26 Grace present ion d 0-01 10:25:00 (Pennie) 10:30: Mondragon [id number] Neuro depressive Neuro/Emot Resolve 2018-102019-09-26 Grace feelings ion d 0-01 10:25:00 (Pennie) present 10:30: Mondragon [id number] Neuro impaired Neuro/Emot Resolve 2018-102019-09-26 Grace decision-ma ion d 0-01 10:25:00 (Pennie) guanako 10:30: [id number] Neuro memory Neuro/Emot Resolve 2018-102019-09-26 Grace deficit ion d 0-01 10:25:00 (Pennie) needing 10:30: Mondragon supervision 00 [id number] Activity ADL Activity Resolve 2018-102019-07-24 Grace assistance d 0-01 09:00:00 (Pennie) required 10:30: Mondragon 00 [id number] Activity self-care Activity Resolve 2018-102019-07-24 Grace deficit d 0-01 09:00:00 (Pennie) 10:30: Mondragon 00 [id number] Safety fall risk Safety Resolve 2018-102019-10-03 Grace factor d 0-01 09:30:00 (Pennie) present 10:30: Mondragon [id number] Safety cannot be Safety Resolve 2018-102019-10-03 Grace left alone d 0-01 09:30:00 (Pennie) 10:30: Mondragon [id number] Safety risk for Safety Resolve 2018-102019-10-03 Grace hospitaliza d 0-01 09:30:00 (Pennie) tion 10:30: Mondragon [id number] Medication oral med Meds Resolve 2018-102019-07-18 Grace assistance d 0-01 13:00:00 (Pennie) required 10:30: Mondragon [id number] Musculoskel transfer Musculoske Resolve 2018-102019-07-24 Grace etal assistance letal d 0-01 09:00:00 (Pennie) required 10:30: Mondragon [id number] Musculoskel requires Musculoske Resolve 2018-102019-07-24 Grace etal human letal d 0-01 09:00:00 (Pennie) assist to 10:30: Mondragon leave home 00 [id number] Nutrition nutritional Nutrition Resolve 2018-102019-07-18 Bimal restriction d 0-02 13:00:00 Anguish s 13:46: [id number] 00 Safety structural Safety Resolve 2018-102019-07-24 Bimal barriers d 0-02 09:00:00 Anguish present 13:46: [id number] 00 Safety can be left Safety Resolve 2018-102019-10-03 Bimal alone for d 0-02 09:30:00 Anguish only short 13:46: [id number] periods 00 Balance/End balance/security coordinator PT/OT: Active 2018-10 Bimal urance rdination Balance/En 0-02 Anguish deficit durance 13:46: [id number] 00 Balance/End endurance PT/OT: Active 2018-10 Bimal urance deficit Balance/En 0-02 Anguish durance 13:46: [id number] 00 Equipment prosthesis PT/OT: Active 2018-10 Bimal Mgmt mgmt Equipment 0-02 Anguish deficit Mgmt 13:46: [id number] 00 Gait/Locomo gait PT/OT: Active 2018-10 Bimal tion deficit Gait/Locom 0-02 Anguish problems otion 13:46: [id number] 00 Elimination bowel Eliminatio Resolve 2018-102019-07-24 Adry incontinenc n d 0-15 09:00:00 Ingrahm e 10:00: [id number] 00 Gait/Locomo gait PT/OT: Active 2018-10 Bimal tion assistive Gait/Locom 0-18 Anguish problems device otion 10:20: [id number] present 00 Nutrition nutritional Nutrition Resolve 2018-102019-07-24 Adry restriction d 0-22 09:00:00 Ingrahm s 10:00: [id number] 00 Nutrition nutritional Nutrition Resolve 2018-102019-08-14 Adry restriction d 0-29 09:59:00 Ingrahm s 08:46: [id number] 00 Integument skin Integument Active 2018-10 Velvet [...] ulcer d 2-03 09:30:00 Ingrahm present 09:53: [id number] 00 Integument surgical Integument Resolve 2018-102019-10-03 Adry wound d 2-03 09:30:00 Ingrahm present 09:53: [id number] 00 Integument stasis Integument Resolve 2018-102019-10-03 Maylin ulcer d 2-03 09:30:00 Jefferson present 09:53: [id number] 00 Bed transfer PT/OT: Bed Active 2018-10 Bimal Mobility/Tr deficit: Mobility/T 2-03 Anguish ansfer standing ransfer 11:50: [id number] pivot 00 Bed transfer PT/OT: Bed Active 2018-10 Bimal Mobility/Tr deficit: Mobility/T 2-03 Anguish ansfer toilet/comm ransfer 11:50: [id number] ode 00 Bed transfer PT/OT: Bed Active 2018-10 Bimal Mobility/Tr deficit: Mobility/T 2-03 Anguish ansfer shower/tub ransfer 11:50: [id number] 00 Activity self-care Activity Resolve 2019-10-17 Adry deficit d 10-03 10:00:00 Ingrahm 09:30: [id number] 00 Activity ADL Activity Resolve 2019-10-17 Bimal assistance d 10-07 10:00:00 Anguish required 10:38: [id number] 00 Safety risk for Safety Active Bimal hospitaliza 10-07 Anguish tion 10:38: [id number] 00 Safety can be left Safety Active Adry alone for 10-10 Ingrahm only short 11:20: [id number] periods 00 Activity ADL Activity Active Maylin assistance 10-24 Jefferson required 09:40: [id number] 00 Activity self-care Activity Active Adry deficit 10-24 Ingrahm 09:40: [id number] 00 Safety fall risk Safety Active Adry factor 10-24 Ingrahm present 09:40: [id number] 00 Allergies, Adverse Reactions, Alerts Allergy Name [...] Observation Time Observation Value Comments SYSTOLIC mm[Hg] 2019-11-18 18:10:27 118 mm[Hg] mm[Hg] Method: Sit SYSTOLIC mm[Hg] 2019-07-06 18:08:12 130 mm[Hg] mm[Hg] Method: Stand DIASTOLIC mm[Hg] 2019-11-18 18:10:27 62 mm[Hg] mm[Hg] Method: Sit DIASTOLIC mm[Hg] 2019-07-06 18:08:12 90 mm[Hg] mm[Hg] Method: Stand PULSE 2019-11-18 18:10:27 60 /min /min RESP RATE 2019-11-17 18:10:26 16 /min /min TEMP 2019-11-18 18:10:27 98.5 [degF] Procedures This patient has no known procedures. Results This patient has no known results.
--- OUTSIDE RECORDS SUMMARY | 2019-12-09 11:54 | XMS REPORT ---
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, disease, [id number] unspecified unspecified 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 [id number] rincon rincon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 without angina angina pectoris pectoris Essential Essential Diagnosis Active Adry (primary) (primary) 1 Ingrahm hypertensio hypertensio [id number] n n 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 Ingrahm [id number] Enterocolit Enterocolit Diagnosis Active 2018-10 Adry is due to is due to 0-13 Ingrahm Clostridium Clostridium [id number] difficile, difficile, not not specified specified as as recurrent recurrent Raynaud's Raynaud's Diagnosis Active Adry syndrome syndrome Ingrahm without without [id number] gangrene gangrene 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, lymphoma, [id number] unspecified unspecified , , unspecified unspecified site site 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) [id number] (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, seizures, not not intractable intractable , without , without status status epilepticus epilepticus Radiculopat Radiculopat Diagnosis Active Adry hy, lumbar hy, lumbar Ingrahm region region [id number] 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 [id number] 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 [id number] diseases diseases classified classified elsewhere elsewhere Benign Benign Diagnosis Active Adry prostatic prostatic Ingrahm hyperplasia hyperplasia [id number] without without lower lower urinary urinary tract tract symptoms symptoms 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 cy 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 [id number] unspecified unspecified sites in sites in spine spine 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, psoriasis, AP625912 unspecified unspecified Other Other Diagnosis Active Adry dysphagia dysphagia Ingrahm [id number] 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 [id number] n n 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 s with s with [id number] current current pathologica pathologica l fracture, l fracture, vertebra(e) vertebra(e) , , subsequent subsequent encounter encounter for for fracture fracture with with routine routine healing healing [facility] Diagnosis Active Adry (current) (current) Ingrahm use of use of [id number] antithrombo antithrombo tics/antipl tics/antipl atelets 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 Adry (current) (current) Ingrahm use of use of [id number] antibiotics antibiotics 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 Adry (current) (current) Ingrahm use of use of [id number] systemic systemic steroids steroids prison 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 Diagnosis Active Adry (current) (current) Ingrahm use of use of [id number] opiate opiate analgesic analgesic 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 JA297581 below knee below knee Personal Personal Diagnosis Active Adry history of history of Ingrahm nicotine nicotine MR550054 dependence dependence Pain frequent Pain Mgmt Resolve 2018-102019-07-18 Grace pain d 0-01 13:00:00 (Pennie) 10:30: Mondragon 00 [id number] Cardio edema Cardiovasc Resolve 2018-102019-07-24 Grace ular d 0-01 09:00:00 (Pennie) 10:30: Mondragon 00 [id number] Respiratory dyspnea Respirator Resolve 2018-102019-07-24 Grace present y d 0-01 09:00:00 (Pennie) 10:30: Mondragon 00 [id number] Endo/David anti-coagul Endo/David Resolve 2018-102019-07-18 Grace ation d 0-01 13:00:00 (Pennie) therapy 10:30: Mondragon [id number] Integument skin Integument Resolve 2018-102019-07-24 Grace integrity d 0-01 09:00:00 (Pennie) risk 10:30: Mondragon [id number] Elimination urinary Eliminatio Resolve 2018-102019-07-24 Grace incontinenc n d 0-01 09:00:00 (Pennie) e 10:30: Mondragon 00 [id number] Neuro confusion Neuro/Emot Resolve 2018-102019-09-26 Grace present ion d 0-01 10:25:00 (Pennie) 10:30: Mondragon [id number] Neuro depressive Neuro/Emot Resolve 2018-102019-09-26 Grace feelings ion d 0-01 10:25:00 (Pennie) present 10:30: Mondragon [id number] Neuro impaired Neuro/Emot Resolve 2018-102019-09-26 Grace decision-ma ion d 0-01 10:25:00 (Pennie) guanako 10:30: [id number] Neuro memory Neuro/Emot Resolve 2018-102019-09-26 Grace deficit ion d 0-01 10:25:00 (Pennie) needing 10:30: Mondragon supervision 00 [id number] Activity ADL Activity Resolve 2018-102019-07-24 Grace assistance d 0-01 09:00:00 (Pennie) required 10:30: Mondragon 00 [id number] Activity self-care Activity Resolve 2018-102019-07-24 Grace deficit d 0-01 09:00:00 (Pennie) 10:30: Mondragon 00 [id number] Safety fall risk Safety Resolve 2018-102019-10-03 Grace factor d 0-01 09:30:00 (Pennie) present 10:30: Mondraogn [id number] Safety cannot be Safety Resolve 2018-102019-10-03 Grace left alone d 0-01 09:30:00 (Pennie) 10:30: Mondragon [id number] Safety risk for Safety Resolve 2018-102019-10-03 Grace hospitaliza d 0-01 09:30:00 (Pennie) tion 10:30: Mondragon [id number] Medication oral med Meds Resolve 2018-102019-07-18 Grace assistance d 0-01 13:00:00 (Pennie) required 10:30: Mondragon [id number] Musculoskel transfer Musculoske Resolve 2018-102019-07-24 Grace etal assistance letal d 0-01 09:00:00 (Pennie) required 10:30: Mondragon [id number] Musculoskel requires Musculoske Resolve 2018-102019-07-24 Grace etal human letal d 0-01 09:00:00 (Pennie) assist to 10:30: Mondragon leave home 00 [id number] Nutrition nutritional Nutrition Resolve 2018-102019-07-18 Bimal restriction d 0-02 13:00:00 Anguish s 13:46: [id number] 00 Safety structural Safety Resolve 2018-102019-07-24 Bimal barriers d 0-02 09:00:00 Anguish present 13:46: [id number] 00 Safety can be left Safety Resolve 2018-102019-10-03 Biaml alone for d 0-02 09:30:00 Anguish only short 13:46: [id number] periods 00 Balance/End balance/recreation activities coordinator PT/OT: Active 2018-10 Bimal urance rdination Balance/En 0-02 Anguish deficit durance 13:46: [id number] 00 Balance/End endurance PT/OT: Active 2018-10 Bimal urance deficit Balance/En 0-02 Anguish durance 13:46: [id number] 00 Equipment prosthesis PT/OT: Active 2018-10 Bimal Mgmt mgmt Equipment 0-02 Anguish deficit Mgmt 13:46: [id number] 00 Gait/Locomo gait PT/OT: Active 2018-10 Bimal tion deficit Gait/Locom 0-02 Anguish problems otion 13:46: [id number] 00 Elimination bowel Eliminatio Resolve 2018-102019-07-24 Adry incontinenc n d 0-15 09:00:00 Ingrahm e 10:00: [id number] 00 Gait/Locomo gait PT/OT: Active 2018-10 Bimal tion assistive Gait/Locom 0-18 Anguish problems device otion 10:20: [id number] present 00 Nutrition nutritional Nutrition Resolve 2018-102019-07-24 Adry restriction d 0-22 09:00:00 Ingrahm s 10:00: [id number] 00 Nutrition nutritional Nutrition Resolve 2018-102019-08-14 Adry restriction d 0-29 09:59:00 Ingrahm s 08:46: [id number] 00 Integument skin Integument Active 2018-10 Velvet [...] ulcer d 2-03 09:30:00 Ingrahm present 09:53: [id number] 00 Integument surgical Integument Resolve 2018-102019-10-03 Adry wound d 2-03 09:30:00 Ingrahm present 09:53: [id number] 00 Integument stasis Integument Resolve 2018-102019-10-03 Maylin ulcer d 2-03 09:30:00 Jefferson present 09:53: [id number] 00 Bed transfer PT/OT: Bed Active 2018-10 Bimal Mobility/Tr deficit: Mobility/T 2-03 Anguish ansfer standing ransfer 11:50: [id number] pivot 00 Bed transfer PT/OT: Bed Active 2018-10 Bimal Mobility/Tr deficit: Mobility/T 2-03 Anguish ansfer toilet/comm ransfer 11:50: [id number] ode 00 Bed transfer PT/OT: Bed Active 2018-10 Bimal Mobility/Tr deficit: Mobility/T 2-03 Anguish ansfer shower/tub ransfer 11:50: [id number] 00 Activity self-care Activity Resolve 2019-10-17 Adry deficit d 10-03 10:00:00 Ingrahm 09:30: [id number] 00 Activity ADL Activity Resolve 2019-10-17 Bimal assistance d 10-07 10:00:00 Anguish required 10:38: [id number] 00 Safety risk for Safety Active Bimal hospitaliza 10-07 Anguish tion 10:38: [id number] 00 Safety can be left Safety Active Adry alone for 10-10 Ingrahm only short 11:20: [id number] periods 00 Activity ADL Activity Active Maylin assistance 10-24 Jefferson required 09:40: [id number] 00 Activity self-care Activity Active Adry deficit 10-24 Ingrahm 09:40: [id number] 00 Safety fall risk Safety Active Adry factor 10-24 Ingrahm present 09:40: [id number] 00 Allergies, Adverse Reactions, Alerts Allergy Name [...] Observation Time Observation Value Comments SYSTOLIC mm[Hg] 2019-11-20 18:10:29 120 mm[Hg] mm[Hg] Method: Sit SYSTOLIC mm[Hg] 2019-07-06 18:08:12 130 mm[Hg] mm[Hg] Method: Stand DIASTOLIC mm[Hg] 2019-11-20 18:10:29 60 mm[Hg] mm[Hg] Method: Sit DIASTOLIC mm[Hg] 2019-07-06 18:08:12 90 mm[Hg] mm[Hg] Method: Stand PULSE 2019-11-20 18:10:29 72 /min /min RESP RATE 2019-11-17 18:10:26 16 /min /min TEMP 2019-11-20 18:10:29 98.7 [degF] Procedures This patient has no known procedures. Results This patient has no known results.
--- OUTSIDE RECORDS SUMMARY | 2019-12-09 11:54 | XMS REPORT ---
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 chronic 0- Ingrahm ulcer of ulcer of [id number] other part other part of left of left foot foot limited to limited to breakdown breakdown of skin of skin Peripheral Peripheral Diagnosis Active Adry vascular vascular 10-01 Ingrahm disease, disease, [id number] unspecified unspecified 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 [place]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 without angina angina pectoris pectoris Essential Essential Diagnosis Active Adry (primary) (primary) 1 Ingrahm hypertensio hypertensio [id number] n n 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 Ingrahm [id number] Enterocolit Enterocolit Diagnosis Active 2018-10 Adry is due to is due to 0-13 Ingrahm Clostridium Clostridium [id number] difficile, difficile, not not specified specified as as recurrent recurrent Raynaud's Raynaud's Diagnosis Active Adry syndrome syndrome Ingrahm without without [id number] gangrene gangrene 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, lymphoma, 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 unspecified unspecified , , unspecified unspecified site site 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) [id number] (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, seizures, not not intractable intractable , without , without status status epilepticus epilepticus Radiculopat Radiculopat Diagnosis Active Adry hy, lumbar hy, lumbar Ingrahm region region [id number] 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 [id number] 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 [id number] diseases diseases classified classified elsewhere elsewhere Benign Benign Diagnosis Active Adry prostatic prostatic Ingrahm hyperplasia hyperplasia [id number] without without lower lower urinary urinary tract tract symptoms symptoms 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 [id number] insufficien insufficien cy 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 [id number] unspecified unspecified sites in sites in spine spine 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, psoriasis, [id number] unspecified unspecified Other Other Diagnosis Active Adry dysphagia dysphagia Ingrahm [id number] 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 [id number] n n 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 s with s with [id number] current current pathologica pathologica l fracture, l fracture, vertebra(e) vertebra(e) , , subsequent subsequent encounter encounter for for fracture fracture with with routine routine healing healing assisted assisted Diagnosis Active Adry (current) (current) Ingrahm use of use of [id number] antithrombo antithrombo tics/antipl tics/antipl atelets atelets 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 Diagnosis Active Adry (current) (current) Ingrahm use of use of [id number] antibiotics antibiotics assisted 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 Diagnosis Active Adry (current) (current) Ingrahm use of use of [id number] systemic systemic steroids steroids assisted assisted Diagnosis Active Adry (current) (current) Ingrahm use of use of [id number] opiate opiate analgesic analgesic 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 [id number] below knee below knee Personal Personal Diagnosis Active Adry history of history of Ingrahm nicotine nicotine [id number] dependence dependence Pain frequent Pain Mgmt Resolve 2018-102019-07-18 Grace pain d 0-01 13:00:00 (Pennie) 10:30: Mondragon 00 [id number] Cardio edema Cardiovasc Resolve 2018-102019-07-24 Grace ular d 0-01 09:00:00 (Pennie) 10:30: Mondragon 00 [id number] Respiratory dyspnea Respirator Resolve 2018-102019-07-24 Grace present y d 0-01 09:00:00 (Pennie) 10:30: Mondragon 00 [id number] Endo/David anti-coagul Endo/David Resolve 2018-102019-07-18 Grace ation d 0-01 13:00:00 (Pennie) therapy 10:30: Mondragon [id number] Integument skin Integument Resolve 2018-102019-07-24 Grace integrity d 0-01 09:00:00 (Pennie) risk 10:30: Mondragon [id number] Elimination urinary Eliminatio Resolve 2018-102019-07-24 Grace incontinenc n d 0-01 09:00:00 (Pennie) e 10:30: Mondragon 00 [id number] Neuro confusion Neuro/Emot Resolve 2018-102019-09-26 Grace present ion d 0-01 10:25:00 (Pennie) 10:30: Mondragon [id number] Neuro depressive Neuro/Emot Resolve 2018-102019-09-26 Grace feelings ion d 0-01 10:25:00 (Pennie) present 10:30: Mondragon [id number] Neuro impaired Neuro/Emot Resolve 2018-102019-09-26 Grace decision-ma ion d 0-01 10:25:00 (Pennie) guanako 10:30: [id number] Neuro memory Neuro/Emot Resolve 2018-102019-09-26 Grace deficit ion d 0-01 10:25:00 (Pennie) needing 10:30: Mondragon supervision 00 [id number] Activity ADL Activity Resolve 2018-102019-07-24 Grace assistance d 0-01 09:00:00 (Pennie) required 10:30: Mondragon 00 [id number] Activity self-care Activity Resolve 2018-102019-07-24 Grace deficit d 0-01 09:00:00 (Pennie) 10:30: Mondragon 00 [id number] Safety fall risk Safety Resolve 2018-102019-10-03 Grace factor d 0-01 09:30:00 (Pennie) present 10:30: Mondragon [id number] Safety cannot be Safety Resolve 2018-102019-10-03 Grace left alone d 0-01 09:30:00 (Pennie) 10:30: Mondragon [id number] Safety risk for Safety Resolve 2018-102019-10-03 Grace hospitaliza d 0-01 09:30:00 (Pennie) tion 10:30: Mondragon [id number] Medication oral med Meds Resolve 2018-102019-07-18 Grace assistance d 0-01 13:00:00 (Pennie) required 10:30: Mondragon [id number] Musculoskel transfer Musculoske Resolve 2018-102019-07-24 Grace etal assistance letal d 0-01 09:00:00 (Pennie) required 10:30: Mondragon [id number] Musculoskel requires Musculoske Resolve 2018-102019-07-24 Grace etal human letal d 0-01 09:00:00 (Pennie) assist to 10:30: Mondragon leave home 00 [id number] Nutrition nutritional Nutrition Resolve 2018-102019-07-18 Bimal restriction d 0-02 13:00:00 Anguish s 13:46: [id number] 00 Safety structural Safety Resolve 2018-102019-07-24 Bimal barriers d 0-02 09:00:00 Anguish present 13:46: [id number] 00 Safety can be left Safety Resolve 2018-102019-10-03 Bimal alone for d 0-02 09:30:00 Anguish only short 13:46: [id number] periods 00 Balance/End balance/art coordinator PT/OT: Active 2018-10 Bimal urance rdination Balance/En 0-02 Anguish deficit durance 13:46: [id number] 00 Balance/End endurance PT/OT: Active 2018-10 Bimal urance deficit Balance/En 0-02 Anguish durance 13:46: [id number] 00 Equipment prosthesis PT/OT: Active 2018-10 Bimal Mgmt mgmt Equipment 0-02 Anguish deficit Mgmt 13:46: [id number] 00 Gait/Locomo gait PT/OT: Active 2018-10 Bimal tion deficit Gait/Locom 0-02 Anguish problems otion 13:46: [id number] 00 Elimination bowel Eliminatio Resolve 2018-102019-07-24 Adry incontinenc n d 0-15 09:00:00 Ingrahm e 10:00: [id number] 00 Gait/Locomo gait PT/OT: Active 2018-10 Bimal tion assistive Gait/Locom 0-18 Anguish problems device otion 10:20: [id number] present 00 Nutrition nutritional Nutrition Resolve 2018-102019-07-24 Adry restriction d 0-22 09:00:00 Ingrahm s 10:00: [id number] Nutrition nutritional Nutrition Resolve 2018-102019-08-14 Adry restriction d 0-29 09:59:00 Ingrahm s 08:46: [id number] 00 Integument skin Integument Active 2018-10 Velvet [...] ulcer d 2-03 09:30:00 Ingrahm present 09:53: [id number] Integument surgical Integument Resolve 2018-102019-10-03 Adry wound d 2-03 09:30:00 Ingrahm present 09:53: [id number] 00 Integument stasis Integument Resolve 2018-102019-10-03 Maylin ulcer d 2-03 09:30:00 Jefferson present 09:53: [id number] 00 Bed transfer PT/OT: Bed Active 2018-10 Bimal Mobility/Tr deficit: Mobility/T 2-03 Anguish ansfer standing ransfer 11:50: [id number] pivot 00 Bed transfer PT/OT: Bed Active 2018-10 Bimal Mobility/Tr deficit: Mobility/T 2-03 Anguish ansfer toilet/comm ransfer 11:50: [id number] ode 00 Bed transfer PT/OT: Bed Active 2018-10 Bimal Mobility/Tr deficit: Mobility/T 2-03 Anguish ansfer shower/tub ransfer 11:50: [id number] 00 Activity self-care Activity Resolve 2019-10-17 Adry deficit d 10-03 10:00:00 Ingrahm 09:30: [id number] 00 Activity ADL Activity Resolve 2019-10-17 Bimal assistance d 10-07 10:00:00 Anguish required 10:38: [id number] Safety risk for Safety Active Bimal hospitaliza 10-07 Anguish tion 10:38: [id number] 00 Safety can be left Safety Active Adry alone for 10-10 Ingrahm only short 11:20: [id number] periods 00 Activity ADL Activity Active Maylin assistance 10-24 Jefferson required 09:40: [id number] 00 Activity self-care Activity Active Adry deficit 10-24 Ingrahm 09:40: [id number] 00 Safety fall risk Safety Active Adry factor 10-24 Ingrahm present 09:40: [id number] 00 Allergies, Adverse Reactions, Alerts Allergy Name [...]
--- OUTSIDE RECORDS SUMMARY | 2019-12-09 11:54 | XMS REPORT ---
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, disease, [id number] unspecified unspecified 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 angina angina pectoris pectoris Essential Essential Diagnosis Active Adry (primary) (primary) 1 Ingrahm hypertensio hypertensio [id number] n n 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 Ingrahm [id number] Enterocolit Enterocolit Diagnosis Active 2018-10 Adry is due to is due to 0-13 Ingrahm Clostridium Clostridium [id number] difficile, difficile, not not specified specified as as recurrent recurrent Raynaud's Raynaud's Diagnosis Active Adry syndrome syndrome Ingrahm without without [id number] gangrene gangrene 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, lymphoma, [id number] unspecified unspecified , , unspecified unspecified site site 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) [id number] (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, seizures, not not intractable intractable , without , without status status epilepticus epilepticus Radiculopat Radiculopat Diagnosis Active Adry hy, lumbar hy, lumbar Ingrahm region region [id number] 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 [id number] 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 [id number] diseases diseases classified classified elsewhere elsewhere Benign Benign Diagnosis Active Adry prostatic prostatic Ingrahm hyperplasia hyperplasia [id number] without without lower lower urinary urinary tract tract symptoms symptoms 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 [id number] unspecified unspecified sites in sites in spine spine 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, psoriasis, [id number] unspecified unspecified Other Other Diagnosis Active Adry dysphagia dysphagia Ingrahm [id number] 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 [id number] n n 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 s with s with [id number] current current pathologica pathologica l fracture, l fracture, vertebra(e) vertebra(e) , , subsequent subsequent encounter encounter for for fracture fracture with with routine routine healing healing FDC FDC Diagnosis Active Adry (current) (current) Ingrahm use of use of [id number] antithrombo antithrombo tics/antipl tics/antipl atelets atelets 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 use of use of [id number] antibiotics antibiotics FDC 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 use of use of [id number] systemic systemic steroids steroids FDC FDC Diagnosis Active Adry (current) (current) Ingrahm use of use of [id number] opiate opiate analgesic analgesic 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 [id number] below knee below knee Personal Personal Diagnosis Active Adry history of history of Ingrahm nicotine nicotine [id number] dependence dependence Pain frequent Pain Mgmt Resolve 2018-102019-07-18 Grace pain d 0-01 13:00:00 (Pennie) 10:30: Mondragon 00 [id number] Cardio edema Cardiovasc Resolve 2018-102019-07-24 Grace ular d 0-01 09:00:00 (Pennie) 10:30: Mondragon 00 [id number] Respiratory dyspnea Respirator Resolve 2018-102019-07-24 Grace present y d 0-01 09:00:00 (Pennie) 10:30: Mondragon 00 [id number] Endo/David anti-coagul Endo/David Resolve 2018-102019-07-18 Grace ation d 0-01 13:00:00 (Pennie) therapy 10:30: Mondragon [id number] Integument skin Integument Resolve 2018-102019-07-24 Grace integrity d 0-01 09:00:00 (Pennie) risk 10:30: Mondragon [id number] Elimination urinary Eliminatio Resolve 2018-102019-07-24 Grace incontinenc n d 0-01 09:00:00 (Pennie) e 10:30: Mondragon 00 [id number] Neuro confusion Neuro/Emot Resolve 2018-102019-09-26 Grace present ion d 0-01 10:25:00 (Pennie) 10:30: Mondragon [id number] Neuro depressive Neuro/Emot Resolve 2018-102019-09-26 Grace feelings ion d 0-01 10:25:00 (Pennie) present 10:30: Mondragon [id number] Neuro impaired Neuro/Emot Resolve 2018-102019-09-26 Grace decision-ma ion d 0-01 10:25:00 (Pennie) guanako 10:30: [id number] Neuro memory Neuro/Emot Resolve 2018-102019-09-26 Grace deficit ion d 0-01 10:25:00 (Pennie) needing 10:30: Mondragon supervision 00 [id number] Activity ADL Activity Resolve 2018-102019-07-24 Grace assistance d 0-01 09:00:00 (Pennie) required 10:30: Mondragon 00 [id number] Activity self-care Activity Resolve 2018-102019-07-24 Grace deficit d 0-01 09:00:00 (Pennie) 10:30: Mondragon 00 [id number] Safety fall risk Safety Resolve 2018-102019-10-03 Grace factor d 0-01 09:30:00 (Pennie) present 10:30: Mondragon [id number] Safety cannot be Safety Resolve 2018-102019-10-03 Grace left alone d 0-01 09:30:00 (Pennie) 10:30: Mondragon [id number] Safety risk for Safety Resolve 2018-102019-10-03 Grace hospitaliza d 0-01 09:30:00 (Pennie) tion 10:30: Mondragon [id number] Medication oral med Meds Resolve 2018-102019-07-18 Grace assistance d 0-01 13:00:00 (Pennie) required 10:30: Mondragon [id number] Musculoskel transfer Musculoske Resolve 2018-102019-07-24 Grace etal assistance letal d 0-01 09:00:00 (Pennie) required 10:30: Mondragon [id number] Musculoskel requires Musculoske Resolve 2018-102019-07-24 Grace etal human letal d 0-01 09:00:00 (Pennie) assist to 10:30: Mondragon leave home 00 [id number] Nutrition nutritional Nutrition Resolve 2018-102019-07-18 Bimal restriction d 0-02 13:00:00 Anguish s 13:46: [id number] 00 Safety structural Safety Resolve 2018-102019-07-24 Bimal barriers d 0-02 09:00:00 Anguish present 13:46: [id number] 00 Safety can be left Safety Resolve 2018-102019-10-03 Bimal alone for d 0-02 09:30:00 Anguish only short 13:46: [id number] periods 00 Balance/End balance/branch operations coordinator PT/OT: Active 2018-10 Bimal urance rdination Balance/En 0-02 Anguish deficit durance 13:46: [id number] 00 Balance/End endurance PT/OT: Active 2018-10 Bimal urance deficit Balance/En 0-02 Anguish durance 13:46: [id number] 00 Equipment prosthesis PT/OT: Active 2018-10 Bimal Mgmt mgmt Equipment 0-02 Anguish deficit Mgmt 13:46: [id number] 00 Gait/Locomo gait PT/OT: Active 2018-10 Bimal tion deficit Gait/Locom 0-02 Anguish problems otion 13:46: [id number] 00 Elimination bowel Eliminatio Resolve 2018-102019-07-24 Adry incontinenc n d 0-15 09:00:00 Ingrahm e 10:00: [id number] 00 Gait/Locomo gait PT/OT: Active 2018-10 Bimal tion assistive Gait/Locom 0-18 Anguish problems device otion 10:20: [id number] present 00 Nutrition nutritional Nutrition Resolve 2018-102019-07-24 Adry restriction d 0-22 09:00:00 Ingrahm s 10:00: [id number] 00 Nutrition nutritional Nutrition Resolve 2018-102019-08-14 Adry restriction d 0-29 09:59:00 Ingrahm s 08:46: [id number] 00 Integument skin Integument Active 2018-10 Velvet [...] ulcer d 2-03 09:30:00 Ingrahm present 09:53: [id number] 00 Integument surgical Integument Resolve 2018-102019-10-03 Adry wound d 2-03 09:30:00 Ingrahm present 09:53: [id number] 00 Integument stasis Integument Resolve 2018-102019-10-03 Maylin ulcer d 2-03 09:30:00 Jefferson present 09:53: [id number] 00 Bed transfer PT/OT: Bed Active 2018-10 Bimal Mobility/Tr deficit: Mobility/T 2-03 Anguish ansfer standing ransfer 11:50: [id number] pivot 00 Bed transfer PT/OT: Bed Active 2018-10 Bimal Mobility/Tr deficit: Mobility/T 2-03 Anguish ansfer toilet/comm ransfer 11:50: [id number] ode 00 Bed transfer PT/OT: Bed Active 2018-10 Bimal Mobility/Tr deficit: Mobility/T 2-03 Anguish ansfer shower/tub ransfer 11:50: [id number] 00 Activity self-care Activity Resolve 2019-10-17 Adry deficit d 10-03 10:00:00 Ingrahm 09:30: [id number] 00 Activity ADL Activity Resolve 2019-10-17 Bimal assistance d 10-07 10:00:00 Anguish required 10:38: [id number] 00 Safety risk for Safety Active Bimal hospitaliza 10-07 Anguish tion 10:38: [id number] 00 Safety can be left Safety Active Adry alone for 10-10 Ingrahm only short 11:20: [id number] periods 00 Activity ADL Activity Active Maylin assistance 10-24 Jefferson required 09:40: [id number] 00 Activity self-care Activity Active Adry deficit 10-24 Ingrahm 09:40: [id number] 00 Safety fall risk Safety Active Adry factor 10-24 Ingrahm present 09:40: [id number] 00 Allergies, Adverse Reactions, Alerts Allergy Name [...] Observation Time Observation Value Comments SYSTOLIC mm[Hg] 2019-11-25 18:10:34 120 mm[Hg] mm[Hg] Method: Sit SYSTOLIC mm[Hg] 2019-07-06 18:08:12 130 mm[Hg] mm[Hg] Method: Stand DIASTOLIC mm[Hg] 2019-11-25 18:10:34 52 mm[Hg] mm[Hg] Method: Sit DIASTOLIC mm[Hg] 2019-07-06 18:08:12 90 mm[Hg] mm[Hg] Method: Stand PULSE 2019-11-25 18:10:34 64 /min /min RESP RATE 2019-11-17 18:10:26 16 /min /min TEMP 2019-11-25 18:10:34 99.3 [degF] Procedures This patient has no known procedures. Results This patient has no known results.
--- OUTSIDE RECORDS SUMMARY | 2019-12-09 11:54 | XMS REPORT ---
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, disease, [id number] unspecified unspecified 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 [id number] [place]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 without angina angina pectoris pectoris Essential Essential Diagnosis Active Adry (primary) (primary) 1 Ingrahm hypertensio hypertensio [id number] n n 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 Ingrahm [id number] Enterocolit Enterocolit Diagnosis Active 2018-10 Adry is due to is due to 0-13 Ingrahm Clostridium Clostridium [id number] difficile, difficile, not not specified specified as as recurrent recurrent Raynaud's Raynaud's Diagnosis Active Adry syndrome syndrome Ingrahm without without [id number] gangrene gangrene 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, lymphoma, [id number] unspecified unspecified , , unspecified unspecified site site 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) [id number] (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, seizures, not not intractable intractable , without , without status status epilepticus epilepticus Radiculopat Radiculopat Diagnosis Active Adry hy, lumbar hy, lumbar Ingrahm region region [id number] 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 [id number] 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 [id number] diseases diseases classified classified elsewhere elsewhere Benign Benign Diagnosis Active Adry prostatic prostatic Ingrahm hyperplasia hyperplasia [id number] without without lower lower urinary urinary tract tract symptoms symptoms 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 cy 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 [id number] unspecified unspecified sites in sites in spine spine 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, psoriasis, [id number] unspecified unspecified Other Other Diagnosis Active Adry dysphagia dysphagia Ingrahm [id number] 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 [id number] n n 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 s with s with [id number] current current pathologica pathologica l fracture, l fracture, vertebra(e) vertebra(e) , , subsequent subsequent encounter encounter for for fracture fracture with with routine routine healing healing care home care home Diagnosis Active Adry (current) (current) Ingrahm use of use of [id number] antithrombo antithrombo tics/antipl tics/antipl atelets atelets 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 Adry (current) (current) Ingrahm use of use of [id number] antibiotics antibiotics care home 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 Diagnosis Active Adry (current) (current) Ingrahm use of use of NJ091729 systemic systemic steroids steroids care home care home Diagnosis Active Adry (current) (current) Ingrahm use of use of [id number] opiate opiate analgesic analgesic 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 [id number] below knee below knee Personal Personal Diagnosis Active Adry history of history of Ingrahm nicotine nicotine [id number] dependence dependence Pain frequent Pain Mgmt Resolve 2018-102019-07-18 Grace pain d 0-01 13:00:00 (Pennie) 10:30: Mondragon 00 [id number] Cardio edema Cardiovasc Resolve 2018-102019-07-24 Grace ular d 0-01 09:00:00 (Pennie) 10:30: Mondragon 00 [id number] Respiratory dyspnea Respirator Resolve 2018-102019-07-24 Grace present y d 0-01 09:00:00 (Pennie) 10:30: Mondragon 00 [id number] Endo/David anti-coagul Endo/Advid Resolve 2018-102019-07-18 Grace ation d 0-01 13:00:00 (Pennie) therapy 10:30: Mondragon [id number] Integument skin Integument Resolve 2018-102019-07-24 Grace integrity d 0-01 09:00:00 (Pennie) risk 10:30: Mondragon [id number] Elimination urinary Eliminatio Resolve 2018-102019-07-24 Grace incontinenc n d 0-01 09:00:00 (Pennie) e 10:30: Mondragon 00 [id number] Neuro confusion Neuro/Emot Resolve 2018-102019-09-26 Grace present ion d 0-01 10:25:00 (Pennie) 10:30: Mondragon [id number] Neuro depressive Neuro/Emot Resolve 2018-102019-09-26 Grace feelings ion d 0-01 10:25:00 (Pennie) present 10:30: Mondragon [id number] Neuro impaired Neuro/Emot Resolve 2018-102019-09-26 Grace decision-ma ion d 0-01 10:25:00 (Pennie) guanako 10:30: [id number] Neuro memory Neuro/Emot Resolve 2018-102019-09-26 Grace deficit ion d 0-01 10:25:00 (Pennie) needing 10:30: Mondragon supervision 00 [id number] Activity ADL Activity Resolve 2018-102019-07-24 Grace assistance d 0-01 09:00:00 (Pennie) required 10:30: Mondragon 00 [id number] Activity self-care Activity Resolve 2018-102019-07-24 Grace deficit d 0-01 09:00:00 (Pennie) 10:30: Mondragon 00 [id number] Safety fall risk Safety Resolve 2018-102019-10-03 Grace factor d 0-01 09:30:00 (Pennie) present 10:30: Mondragon [id number] Safety cannot be Safety Resolve 2018-102019-10-03 Grace left alone d 0-01 09:30:00 (Pennie) 10:30: Mondragon [id number] Safety risk for Safety Resolve 2018-102019-10-03 Grace hospitaliza d 0-01 09:30:00 (Pennie) tion 10:30: Mondragon [id number] Medication oral med Meds Resolve 2018-102019-07-18 Grace assistance d 0-01 13:00:00 (Pennie) required 10:30: Mondragon [id number] Musculoskel transfer Musculoske Resolve 2018-102019-07-24 Grace etal assistance letal d 0-01 09:00:00 (Pennie) required 10:30: Mondragon [id number] Musculoskel requires Musculoske Resolve 2018-102019-07-24 Grace etal human letal d 0-01 09:00:00 (Pennie) assist to 10:30: Mondragon leave home 00 [id number] Nutrition nutritional Nutrition Resolve 2018-102019-07-18 Bimal restriction d 0-02 13:00:00 Anguish s 13:46: [id number] 00 Safety structural Safety Resolve 2018-102019-07-24 Bimal barriers d 0-02 09:00:00 Anguish present 13:46: [id number] 00 Safety can be left Safety Resolve 2018-102019-10-03 Bimal alone for d 0-02 09:30:00 Anguish only short 13:46: [id number] periods 00 Balance/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 PT/OT: Active 2018-10 Bimal urance rdination Balance/En 0-02 Anguish deficit durance 13:46: [id number] 00 Balance/End endurance PT/OT: Active 2018-10 Bimal urance deficit Balance/En 0-02 Anguish durance 13:46: [id number] 00 Equipment prosthesis PT/OT: Active 2018-10 Bimal Mgmt mgmt Equipment 0-02 Anguish deficit Mgmt 13:46: [id number] 00 Gait/Locomo gait PT/OT: Active 2018-10 Bimal tion deficit Gait/Locom 0-02 Anguish problems otion 13:46: [id number] 00 Elimination bowel Eliminatio Resolve 2018-102019-07-24 Adry incontinenc n d 0-15 09:00:00 Ingrahm e 10:00: [id number] 00 Gait/Locomo gait PT/OT: Active 2018-10 Bimal tion assistive Gait/Locom 0-18 Anguish problems device otion 10:20: [id number] present 00 Nutrition nutritional Nutrition Resolve 2018-102019-07-24 Adry restriction d 0-22 09:00:00 Ingrahm s 10:00: [id number] 00 Nutrition nutritional Nutrition Resolve 2018-102019-08-14 Adry restriction d 0-29 09:59:00 Ingrahm s 08:46: [id number] 00 Integument skin Integument Active 2018-10 Velvet [...] ulcer d 2-03 09:30:00 Ingrahm present 09:53: [id number] 00 Integument surgical Integument Resolve 2018-102019-10-03 Adry wound d 2-03 09:30:00 Ingrahm present 09:53: [id number] 00 Integument stasis Integument Resolve 2018-102019-10-03 Maylin ulcer d 2-03 09:30:00 Jefferson present 09:53: [id number] 00 Bed transfer PT/OT: Bed Active 2018-10 Bimal Mobility/Tr deficit: Mobility/T 2-03 Anguish ansfer standing ransfer 11:50: [id number] pivot 00 Bed transfer PT/OT: Bed Active 2018-10 Bimal Mobility/Tr deficit: Mobility/T 2-03 Anguish ansfer toilet/comm ransfer 11:50: [id number] ode 00 Bed transfer PT/OT: Bed Active 2018-10 Bimal Mobility/Tr deficit: Mobility/T 2-03 Anguish ansfer shower/tub ransfer 11:50: [id number] 00 Activity self-care Activity Resolve 2019-10-17 Adry deficit d 10-03 10:00:00 Ingrahm 09:30: [id number] 00 Activity ADL Activity Resolve 2019-10-17 Bimal assistance d 10-07 10:00:00 Anguish required 10:38: [id number] 00 Safety risk for Safety Active Bimal hospitaliza 10-07 Anguish tion 10:38: [id number] 00 Safety can be left Safety Active Adry alone for 10-10 Ingrahm only short 11:20: [id number] periods 00 Activity ADL Activity Active Maylin assistance 10-24 Jefferson required 09:40: [id number] 00 Activity self-care Activity Active Adry deficit 10-24 Ingrahm 09:40: [id number] 00 Safety fall risk Safety Active Adry factor 10-24 Ingrahm present 09:40: [id number] 00 Allergies, Adverse Reactions, Alerts Allergy Name [...]
--- OUTSIDE RECORDS SUMMARY | 2019-12-09 11:54 | XMS REPORT ---
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, disease, [id number] unspecified unspecified 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 pectoris pectoris Essential Essential Diagnosis Active Adry (primary) (primary) 1 Ingrahm hypertensio hypertensio [id number] n n 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 Ingrahm [id number] Enterocolit Enterocolit Diagnosis Active 2018-10 Adry is due to is due to 0-13 Ingrahm Clostridium Clostridium [id number] difficile, difficile, not not specified specified as as recurrent recurrent Raynaud's Raynaud's Diagnosis Active Adry syndrome syndrome Ingrahm without without [id number] gangrene gangrene 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, lymphoma, 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 unspecified unspecified , , unspecified unspecified site site 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) [id number] (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, seizures, not not intractable intractable , without , without status status epilepticus epilepticus Radiculopat Radiculopat Diagnosis Active Adyr hy, lumbar hy, lumbar Ingrahm region region [id number] 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 [id number] 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 [id number] diseases diseases classified classified elsewhere elsewhere Benign Benign Diagnosis Active Adry prostatic prostatic Ingrahm hyperplasia hyperplasia [id number] without without lower lower urinary urinary tract tract symptoms symptoms 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 [id number] unspecified unspecified sites in sites in spine spine 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, psoriasis, [id number] unspecified unspecified Other Other Diagnosis Active Adry dysphagia dysphagia Ingrahm [id number] 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 [id number] n n 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 s with s with [id number] current current pathologica pathologica l fracture, l fracture, vertebra(e) vertebra(e) , , subsequent subsequent encounter encounter for for fracture fracture with with routine routine healing healing MCC MCC Diagnosis Active Adry (current) (current) Ingrahm use of use of [id number] antithrombo antithrombo tics/antipl tics/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 Adry (current) (current) Ingrahm use of use of [id number] antibiotics antibiotics 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 Adry (current) (current) Ingrahm use of use of [id number] systemic systemic steroids steroids MCC MCC Diagnosis Active Adry (current) (current) Ingrahm use of use of [id number] opiate opiate analgesic analgesic 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 [id number] below knee below knee Personal Personal Diagnosis Active Adry history of history of Ingrahm nicotine nicotine [id number] dependence dependence Pain frequent Pain Mgmt Resolve 2018-102019-07-18 Grace pain d 0-01 13:00:00 (Pennie) 10:30: Mondragon 00 [id number] Cardio edema Cardiovasc Resolve 2018-102019-07-24 Grace ular d 0-01 09:00:00 (Pennie) 10:30: Mondragon 00 [id number] Respiratory dyspnea Respirator Resolve 2018-102019-07-24 Grace present y d 0-01 09:00:00 (Pennie) 10:30: Mondragon 00 [id number] Endo/David anti-coagul Endo/David Resolve 2018-102019-07-18 Grace ation d 0-01 13:00:00 (Pennie) therapy 10:30: Mondragon [id number] Integument skin Integument Resolve 2018-102019-07-24 Grace integrity d 0-01 09:00:00 (Pennie) risk 10:30: Mondragon [id number] Elimination urinary Eliminatio Resolve 2018-102019-07-24 Grace incontinenc n d 0-01 09:00:00 (Pennie) e 10:30: Mondragon 00 [id number] Neuro confusion Neuro/Emot Resolve 2018-102019-09-26 Grace present ion d 0-01 10:25:00 (Pennie) 10:30: Mondragon [id number] Neuro depressive Neuro/Emot Resolve 2018-102019-09-26 Grace feelings ion d 0-01 10:25:00 (Pennie) present 10:30: Mondragon [id number] Neuro impaired Neuro/Emot Resolve 2018-102019-09-26 Grace decision-ma ion d 0-01 10:25:00 (Pennie) guanako 10:30: [id number] Neuro memory Neuro/Emot Resolve 2018-102019-09-26 Grace deficit ion d 0-01 10:25:00 (Pennie) needing 10:30: Mondragon supervision 00 [id number] Activity ADL Activity Resolve 2018-102019-07-24 Grace assistance d 0-01 09:00:00 (Pennie) required 10:30: Mondragon 00 [id number] Activity self-care Activity Resolve 2018-102019-07-24 Grace deficit d 0-01 09:00:00 (Pennie) 10:30: Mondragon 00 [id number] Safety fall risk Safety Resolve 2018-102019-10-03 Grace factor d 0-01 09:30:00 (Pennie) present 10:30: Mondragon [id number] Safety cannot be Safety Resolve 2018-102019-10-03 Grace left alone d 0-01 09:30:00 (Pennie) 10:30: Mondragon [id number] Safety risk for Safety Resolve 2018-102019-10-03 Grace hospitaliza d 0-01 09:30:00 (Pennie) tion 10:30: Mondragon [id number] Medication oral med Meds Resolve 2018-102019-07-18 Grace assistance d 0-01 13:00:00 (Pennie) required 10:30: Mondragon [id number] Musculoskel transfer Musculoske Resolve 2018-102019-07-24 Grace etal assistance letal d 0-01 09:00:00 (Pennie) required 10:30: Mondragon [id number] Musculoskel requires Musculoske Resolve 2018-102019-07-24 Grace etal human letal d 0-01 09:00:00 (Pennie) assist to 10:30: Mondragon leave home 00 [id number] Nutrition nutritional Nutrition Resolve 2018-102019-07-18 Bimal restriction d 0-02 13:00:00 Anguish s 13:46: [id number] 00 Safety structural Safety Resolve 2018-102019-07-24 Bimal barriers d 0-02 09:00:00 Anguish present 13:46: [id number] 00 Safety can be left Safety Resolve 2018-102019-10-03 Bimal alone for d 0-02 09:30:00 Anguish only short 13:46: [id number] periods 00 Balance/End balance/office coordinator PT/OT: Active 2018-10 Bimal urance rdination Balance/En 0-02 Anguish deficit durance 13:46: [id number] 00 Balance/End endurance PT/OT: Active 2018-10 Bimal urance deficit Balance/En 0-02 Anguish durance 13:46: [id number] 00 Equipment prosthesis PT/OT: Active 2018-10 Bimal Mgmt mgmt Equipment 0-02 Anguish deficit Mgmt 13:46: [id number] 00 Gait/Locomo gait PT/OT: Active 2018-10 Bimal tion deficit Gait/Locom 0-02 Anguish problems otion 13:46: [id number] 00 Elimination bowel Eliminatio Resolve 2018-102019-07-24 Adry incontinenc n d 0-15 09:00:00 Ingrahm e 10:00: [id number] 00 Gait/Locomo gait PT/OT: Active 2018-10 Bimal tion assistive Gait/Locom 0-18 Anguish problems device otion 10:20: [id number] present 00 Nutrition nutritional Nutrition Resolve 2018-102019-07-24 Adry restriction d 0-22 09:00:00 Ingrahm s 10:00: [id number] 00 Nutrition nutritional Nutrition Resolve 2018-102019-08-14 Adry restriction d 0-29 09:59:00 Ingrahm s 08:46: [id number] 00 Integument skin Integument Active 2018-10 Velvet [...] ulcer d 2-03 09:30:00 Ingrahm present 09:53: [id number] 00 Integument surgical Integument Resolve 2018-102019-10-03 Adry wound d 2-03 09:30:00 Ingrahm present 09:53: [id number] 00 Integument stasis Integument Resolve 2018-102019-10-03 Maylin ulcer d 2-03 09:30:00 Jefferson present 09:53: [id number] 00 Bed transfer PT/OT: Bed Active 2018-10 Bimal Mobility/Tr deficit: Mobility/T 2-03 Anguish ansfer standing ransfer 11:50: [id number] pivot 00 Bed transfer PT/OT: Bed Active 2018-10 Bimal Mobility/Tr deficit: Mobility/T 2-03 Anguish ansfer toilet/comm ransfer 11:50: [id number] ode 00 Bed transfer PT/OT: Bed Active 2018-10 Bimal Mobility/Tr deficit: Mobility/T 2-03 Anguish ansfer shower/tub ransfer 11:50: [id number] 00 Activity self-care Activity Resolve 2019-10-17 Adry deficit d 10-03 10:00:00 Ingrahm 09:30: [id number] 00 Activity ADL Activity Resolve 2019-10-17 Bimal assistance d 10-07 10:00:00 Anguish required 10:38: [id number] 00 Safety risk for Safety Active Bimal hospitaliza 10-07 Anguish tion 10:38: [id number] 00 Safety can be left Safety Active Adry alone for 10-10 Ingrahm only short 11:20: [id number] periods 00 Activity ADL Activity Active Maylin assistance 10-24 Jefferson required 09:40: [id number] 00 Activity self-care Activity Active Adry deficit 10-24 Ingrahm 09:40: [id number] 00 Safety fall risk Safety Active Adry factor 10-24 Ingrahm present 09:40: [id number] 00 Allergies, Adverse Reactions, Alerts Allergy Name [...] 2019-11-14 18:10:23 73 /min /min RESP RATE 2019-11-17 18:10:26 16 /min /min TEMP 2019-11-14 18:10:23 98.0 [degF] Procedures This patient has no known procedures. Results This patient has no known results.
--- OUTSIDE RECORDS SUMMARY | 2019-12-09 11:54 | XMS REPORT ---
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, disease, [id number] unspecified unspecified 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 [id number] [place]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 without angina angina pectoris pectoris Essential Essential Diagnosis Active Adry (primary) (primary) 1 Ingrahm hypertensio hypertensio [id number] n n 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 Ingrahm [id number] Enterocolit Enterocolit Diagnosis Active 2018-10 Adry is due to is due to 0-13 Ingrahm Clostridium Clostridium [id number] difficile, difficile, not not specified specified as as recurrent recurrent Raynaud's Raynaud's Diagnosis Active Adry syndrome syndrome Ingrahm without without [id number] gangrene gangrene 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, lymphoma, [id number] unspecified unspecified , , unspecified unspecified site site 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) [id number] (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, seizures, not not intractable intractable , without , without status status epilepticus epilepticus Radiculopat Radiculopat Diagnosis Active Adry hy, lumbar hy, lumbar Ingrahm region region [id number] 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 [id number] 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 [id number] diseases diseases classified classified elsewhere elsewhere Benign Benign Diagnosis Active Adry prostatic prostatic Ingrahm hyperplasia hyperplasia [id number] without without lower lower urinary urinary tract tract symptoms symptoms 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 [id number] insufficien insufficien cy 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 [id number] unspecified unspecified sites in sites in spine spine 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, psoriasis, SV718605 unspecified unspecified Other Other Diagnosis Active Adry dysphagia dysphagia Ingrahm [id number] 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 [id number] n n 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 s with s with [id number] current current pathologica pathologica l fracture, l fracture, vertebra(e) vertebra(e) , , subsequent subsequent encounter encounter for for fracture fracture with with routine routine healing healing nursing home nursing home Diagnosis Active Adry (current) (current) Ingrahm use of use of [id number] antithrombo antithrombo tics/antipl tics/antipl atelets atelets 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 Adry (current) (current) Ingrahm use of use of [id number] antibiotics antibiotics 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 Active Adry (current) (current) Ingrahm use of use of [id number] systemic systemic steroids steroids nursing home nursing home Diagnosis Active Adry (current) (current) Ingrahm use of use of [id number] opiate opiate analgesic analgesic 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 [id number] below knee below knee Personal Personal Diagnosis Active Adry history of history of Ingrahm nicotine nicotine [id number] dependence dependence Pain frequent Pain Mgmt Resolve 2018-102019-07-18 Grace pain d 0-01 13:00:00 (Pennie) 10:30: Mondragon 00 [id number] Cardio edema Cardiovasc Resolve 2018-102019-07-24 Grace ular d 0-01 09:00:00 (Pennie) 10:30: Mondragon 00 [id number] Respiratory dyspnea Respirator Resolve 2018-102019-07-24 Grace present y d 0-01 09:00:00 (Pennie) 10:30: Mondragon 00 [id number] Endo/David anti-coagul Endo/David Resolve 2018-102019-07-18 Grace ation d 0-01 13:00:00 (Pennie) therapy 10:30: Mondragon [id number] Integument skin Integument Resolve 2018-102019-07-24 Grace integrity d 0-01 09:00:00 (Pennie) risk 10:30: Mondragon [id number] Elimination urinary Eliminatio Resolve 2018-102019-07-24 Grace incontinenc n d 0-01 09:00:00 (Pennie) e 10:30: Mondragon 00 [id number] Neuro confusion Neuro/Emot Resolve 2018-102019-09-26 Grace present ion d 0-01 10:25:00 (Pennie) 10:30: Mondragon [id number] Neuro depressive Neuro/Emot Resolve 2018-102019-09-26 Grace feelings ion d 0-01 10:25:00 (Pennie) present 10:30: Mondragon [id number] Neuro impaired Neuro/Emot Resolve 2018-102019-09-26 Grace decision-ma ion d 0-01 10:25:00 (Pennie) guanako 10:30: [id number] Neuro memory Neuro/Emot Resolve 2018-102019-09-26 Grace deficit ion d 0-01 10:25:00 (Pennie) needing 10:30: Mondragon supervision 00 [id number] Activity ADL Activity Resolve 2018-102019-07-24 Grace assistance d 0-01 09:00:00 (Pennie) required 10:30: Mondragon 00 [id number] Activity self-care Activity Resolve 2018-102019-07-24 Grace deficit d 0-01 09:00:00 (Pennie) 10:30: Mondragon 00 [id number] Safety fall risk Safety Resolve 2018-102019-10-03 Grace factor d 0-01 09:30:00 (Pennie) present 10:30: Mondragon [id number] Safety cannot be Safety Resolve 2018-102019-10-03 Grace left alone d 0-01 09:30:00 (Pennie) 10:30: Mondragon [id number] Safety risk for Safety Resolve 2018-102019-10-03 Grace hospitaliza d 0-01 09:30:00 (Pennie) tion 10:30: Mondragon [id number] Medication oral med Meds Resolve 2018-102019-07-18 Grace assistance d 0-01 13:00:00 (Pennie) required 10:30: Mondragon [id number] Musculoskel transfer Musculoske Resolve 2018-102019-07-24 Grace etal assistance letal d 0-01 09:00:00 (Pennie) required 10:30: Mondragon [id number] Musculoskel requires Musculoske Resolve 2018-102019-07-24 Grace etal human letal d 0-01 09:00:00 (Pennie) assist to 10:30: Mondragon leave home 00 [id number] Nutrition nutritional Nutrition Resolve 2018-102019-07-18 Bimal restriction d 0-02 13:00:00 Anguish s 13:46: [id number] 00 Safety structural Safety Resolve 2018-102019-07-24 Bimal barriers d 0-02 09:00:00 Anguish present 13:46: [id number] 00 Safety can be left Safety Resolve 2018-102019-10-03 Bimal alone for d 0-02 09:30:00 Anguish only short 13:46: [id number] periods 00 Balance/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 PT/OT: Active 2018-10 Bimal urance rdination Balance/En 0-02 Anguish deficit durance 13:46: [id number] 00 Balance/End endurance PT/OT: Active 2018-10 Bimal urance deficit Balance/En 0-02 Anguish durance 13:46: [id number] 00 Equipment prosthesis PT/OT: Active 2018-10 Bimal Mgmt mgmt Equipment 0-02 Anguish deficit Mgmt 13:46: [id number] 00 Gait/Locomo gait PT/OT: Active 2018-10 Bimal tion deficit Gait/Locom 0-02 Anguish problems otion 13:46: [id number] 00 Elimination bowel Eliminatio Resolve 2018-102019-07-24 Adry incontinenc n d 0-15 09:00:00 Ingrahm e 10:00: [id number] 00 Gait/Locomo gait PT/OT: Active 2018-10 Bimal tion assistive Gait/Locom 0-18 Anguish problems device otion 10:20: [id number] present 00 Nutrition nutritional Nutrition Resolve 2018-102019-07-24 Adry restriction d 0-22 09:00:00 Ingrahm s 10:00: [id number] 00 Nutrition nutritional Nutrition Resolve 2018-102019-08-14 Adry restriction d 0-29 09:59:00 Ingrahm s 08:46: [id number] 00 Integument skin Integument Active 2018-10 Velvet [...] ulcer d 2-03 09:30:00 Ingrahm present 09:53: [id number] 00 Integument surgical Integument Resolve 2018-102019-10-03 Adry wound d 2-03 09:30:00 Ingrahm present 09:53: [id number] 00 Integument stasis Integument Resolve 2018-102019-10-03 Maylin ulcer d 2-03 09:30:00 Jefferson present 09:53: [id number] 00 Bed transfer PT/OT: Bed Active 2018-10 Bimal Mobility/Tr deficit: Mobility/T 2-03 Anguish ansfer standing ransfer 11:50: [id number] pivot 00 Bed transfer PT/OT: Bed Active 2018-10 Bimal Mobility/Tr deficit: Mobility/T 2-03 Anguish ansfer toilet/comm ransfer 11:50: [id number] ode 00 Bed transfer PT/OT: Bed Active 2018-10 Bimal Mobility/Tr deficit: Mobility/T 2-03 Anguish ansfer shower/tub ransfer 11:50: [id number] 00 Activity self-care Activity Resolve 2019-10-17 Adry deficit d 10-03 10:00:00 Ingrahm 09:30: [id number] 00 Activity ADL Activity Resolve 2019-10-17 Bimal assistance d 10-07 10:00:00 Anguish required 10:38: [id number] Safety risk for Safety Active Bimal hospitaliza 10-07 Anguish tion 10:38: [id number] 00 Safety can be left Safety Active Adry alone for 10-10 Ingrahm only short 11:20: [id number] periods 00 Activity ADL Activity Active Maylin assistance 10-24 Jefferson required 09:40: [id number] 00 Activity self-care Activity Active Adry deficit 10-24 Ingrahm 09:40: [id number] 00 Safety fall risk Safety Active Adry factor 10-24 Ingrahm present 09:40: [id number] 00 Allergies, Adverse Reactions, Alerts Allergy Name [...]
--- OUTSIDE RECORDS SUMMARY | 2019-12-09 11:54 | XMS REPORT ---
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, disease, [id number] unspecified unspecified 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 Essential Essential Diagnosis Active Adry (primary) (primary) 1 Ingrahm hypertensio hypertensio [id number] n n 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 Ingrahm [id number] Enterocolit Enterocolit Diagnosis Active 2018-10 Adry is due to is due to 0-13 Ingrahm Clostridium Clostridium [id number] difficile, difficile, not not specified specified as as recurrent recurrent Raynaud's Raynaud's Diagnosis Active Adry syndrome syndrome Ingrahm without without [id number] gangrene gangrene 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, lymphoma, [id number] unspecified unspecified , , unspecified unspecified site site 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) [id number] (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, seizures, not not intractable intractable , without , without status status epilepticus epilepticus Radiculopat Radiculopat Diagnosis Active Adry hy, lumbar hy, lumbar Ingrahm region region [id number] 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 [id number] diseases diseases classified classified elsewhere elsewhere Benign Benign Diagnosis Active Adry prostatic prostatic Ingrahm hyperplasia hyperplasia [id number] without without lower lower urinary urinary tract tract symptoms symptoms 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 [id number] insufficien insufficien cy 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 [id number] unspecified unspecified sites in sites in spine spine 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, psoriasis, [id number] unspecified unspecified Other Other Diagnosis Active Adry dysphagia dysphagia Ingrahm [id number] 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 [id number] n n 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 s with s with [id number] current current pathologica pathologica l fracture, l fracture, vertebra(e) vertebra(e) , , subsequent subsequent encounter encounter for for fracture fracture with with routine routine healing healing prison prison Diagnosis Active Adry (current) (current) Ingrahm use of use of [id number] antithrombo antithrombo tics/antipl tics/antipl atelets atelets 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 Adry (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) (current) Ingrahm use of use of [id number] antibiotics antibiotics 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 Adry (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) (current) Ingrahm use of use of [id number] systemic systemic steroids steroids prison prison Diagnosis Active Adry (current) (current) Ingrahm use of use of [id number] opiate opiate analgesic analgesic 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 [id number] below knee below knee Personal Personal Diagnosis Active Adry history of history of Ingrahm nicotine nicotine [id number] dependence dependence Pain frequent Pain Mgmt Resolve 2018-102019-07-18 Grace pain d 0-01 13:00:00 (Pennie) 10:30: Mondragon 00 [id number] Cardio edema Cardiovasc Resolve 2018-102019-07-24 Grace ular d 0-01 09:00:00 (Pennie) 10:30: Mondragon 00 [id number] Respiratory dyspnea Respirator Resolve 2018-102019-07-24 Grace present y d 0-01 09:00:00 (Pennie) 10:30: Mondragon 00 [id number] Endo/David anti-coagul Endo/David Resolve 2018-102019-07-18 Grace ation d 0-01 13:00:00 (Pennie) therapy 10:30: Mondragon [id number] Integument skin Integument Resolve 2018-102019-07-24 Grace integrity d 0-01 09:00:00 (Pennie) risk 10:30: Mondragon [id number] Elimination urinary Eliminatio Resolve 2018-102019-07-24 Grace incontinenc n d 0-01 09:00:00 (Pennie) e 10:30: Mondragon 00 [id number] Neuro confusion Neuro/Emot Resolve 2018-102019-09-26 Grace present ion d 0-01 10:25:00 (Pennie) 10:30: Mondragon [id number] Neuro depressive Neuro/Emot Resolve 2018-102019-09-26 Grace feelings ion d 0-01 10:25:00 (Pennie) present 10:30: Mondragon [id number] Neuro impaired Neuro/Emot Resolve 2018-102019-09-26 Grace decision-ma ion d 0-01 10:25:00 (Pennie) guanako 10:30: [id number] Neuro memory Neuro/Emot Resolve 2018-102019-09-26 Grace deficit ion d 0-01 10:25:00 (Pennie) needing 10:30: Mondragon supervision 00 [id number] Activity ADL Activity Resolve 2018-102019-07-24 Grace assistance d 0-01 09:00:00 (Pennie) required 10:30: Mondragon 00 [id number] Activity self-care Activity Resolve 2018-102019-07-24 Grace deficit d 0-01 09:00:00 (Pennie) 10:30: Mondragon 00 [id number] Safety fall risk Safety Resolve 2018-102019-10-03 Grace factor d 0-01 09:30:00 (Pennie) present 10:30: Mondragon [id number] Safety cannot be Safety Resolve 2018-102019-10-03 Grace left alone d 0-01 09:30:00 (Pennie) 10:30: Mondragon [id number] Safety risk for Safety Resolve 2018-102019-10-03 Grace hospitaliza d 0-01 09:30:00 (Pennie) tion 10:30: Mondragon [id number] Medication oral med Meds Resolve 2018-102019-07-18 Grace assistance d 0-01 13:00:00 (Pennie) required 10:30: Mondragon [id number] Musculoskel transfer Musculoske Resolve 2018-102019-07-24 Grace etal assistance letal d 0-01 09:00:00 (Pennie) required 10:30: Mondragon [id number] Musculoskel requires Musculoske Resolve 2018-102019-07-24 Grace etal human letal d 0-01 09:00:00 (Pennie) assist to 10:30: Mondragon leave home 00 [id number] Nutrition nutritional Nutrition Resolve 2018-102019-07-18 Bimal restriction d 0-02 13:00:00 Anguish s 13:46: [id number] 00 Safety structural Safety Resolve 2018-102019-07-24 Bimal barriers d 0-02 09:00:00 Anguish present 13:46: [id number] 00 Safety can be left Safety Resolve 2018-102019-10-03 Bimal alone for d 0-02 09:30:00 Anguish only short 13:46: [id number] periods 00 Balance/End balance/housekeeping coordinator PT/OT: Active 2018-10 Bimal urance rdination Balance/En 0-02 Anguish deficit durance 13:46: [id number] 00 Balance/End endurance PT/OT: Active 2018-10 Bimal urance deficit Balance/En 0-02 Anguish durance 13:46: [id number] 00 Equipment prosthesis PT/OT: Active 2018-10 Bimal Mgmt mgmt Equipment 0-02 Anguish deficit Mgmt 13:46: [id number] 00 Gait/Locomo gait PT/OT: Active 2018-10 Bimal tion deficit Gait/Locom 0-02 Anguish problems otion 13:46: [id number] 00 Elimination bowel Eliminatio Resolve 2018-102019-07-24 Adry incontinenc n d 0-15 09:00:00 Ingrahm e 10:00: [id number] 00 Gait/Locomo gait PT/OT: Active 2018-10 Bimal tion assistive Gait/Locom 0-18 Anguish problems device otion 10:20: [id number] present 00 Nutrition nutritional Nutrition Resolve 2018-102019-07-24 Adry restriction d 0-22 09:00:00 Ingrahm s 10:00: [id number] 00 Nutrition nutritional Nutrition Resolve 2018-102019-08-14 Adry restriction d 0-29 09:59:00 Ingrahm s 08:46: [id number] 00 Integument skin Integument Active 2018-10 Velvet [...] ulcer d 2-03 09:30:00 Ingrahm present 09:53: [id number] 00 Integument surgical Integument Resolve 2018-102019-10-03 Adry wound d 2-03 09:30:00 Ingrahm present 09:53: [id number] 00 Integument stasis Integument Resolve 2018-102019-10-03 Maylin ulcer d 2-03 09:30:00 Jefferson present 09:53: [id number] 00 Bed transfer PT/OT: Bed Active 2018-10 Bimal Mobility/Tr deficit: Mobility/T 2-03 Anguish ansfer standing ransfer 11:50: [id number] pivot 00 Bed transfer PT/OT: Bed Active 2018-10 Bimal Mobility/Tr deficit: Mobility/T 2-03 Anguish ansfer toilet/comm ransfer 11:50: [id number] ode 00 Bed transfer PT/OT: Bed Active 2018-10 Bimal Mobility/Tr deficit: Mobility/T 2-03 Anguish ansfer shower/tub ransfer 11:50: [id number] 00 Activity self-care Activity Resolve 2019-10-17 Adry deficit d 10-03 10:00:00 Ingrahm 09:30: [id number] 00 Activity ADL Activity Resolve 2019-10-17 Bimal assistance d 10-07 10:00:00 Anguish required 10:38: [id number] 00 Safety risk for Safety Active Bimal hospitaliza 10-07 Anguish tion 10:38: [id number] 00 Safety can be left Safety Active Adry alone for 10-10 Ingrahm only short 11:20: [id number] periods 00 Activity ADL Activity Active Maylin assistance 10-24 Jefferson required 09:40: [id number] 00 Activity self-care Activity Active Adry deficit 10-24 Ingrahm 09:40: [id number] 00 Safety fall risk Safety Active Adry factor 10-24 Ingrahm present 09:40: [id number] 00 Allergies, Adverse Reactions, Alerts Allergy Name [...] Observation Time Observation Value Comments SYSTOLIC mm[Hg] 2019-11-27 18:10:36 120 mm[Hg] mm[Hg] Method: Sit SYSTOLIC mm[Hg] 2019-07-06 18:08:12 130 mm[Hg] mm[Hg] Method: Stand DIASTOLIC mm[Hg] 2019-11-27 18:10:36 64 mm[Hg] mm[Hg] Method: Sit DIASTOLIC mm[Hg] 2019-07-06 18:08:12 90 mm[Hg] mm[Hg] Method: Stand PULSE 2019-11-27 18:10:36 68 /min /min RESP RATE 2019-11-17 18:10:26 16 /min /min TEMP 2019-11-27 18:10:36 98.4 [degF] Procedures This patient has no known procedures. Results This patient has no known results.
--- OUTSIDE RECORDS SUMMARY | 2019-12-09 11:54 | XMS REPORT ---
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, disease, [id number] unspecified unspecified 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 [id number] [place]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 without angina angina pectoris pectoris Essential Essential Diagnosis Active Adry (primary) (primary) 1 Ingrahm hypertensio hypertensio [id number] n n 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 Ingrahm [id number] Enterocolit Enterocolit Diagnosis Active 2018-10 Adry is due to is due to 0-13 Ingrahm Clostridium Clostridium [id number] difficile, difficile, not not specified specified as as recurrent recurrent Raynaud's Raynaud's Diagnosis Active Adry syndrome syndrome Ingrahm without without [id number] gangrene gangrene 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, lymphoma, [id number] unspecified unspecified , , unspecified unspecified site site 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) [id number] (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, seizures, not not intractable intractable , without , without status status epilepticus epilepticus Radiculopat Radiculopat Diagnosis Active Adry hy, lumbar hy, lumbar Ingrahm region region [id number] 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 [id number] 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 [id number] diseases diseases classified classified elsewhere elsewhere Benign Benign Diagnosis Active Adry prostatic prostatic Ingrahm hyperplasia hyperplasia [id number] without without lower lower urinary urinary tract tract symptoms symptoms 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 [id number] insufficien insufficien cy 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 [id number] unspecified unspecified sites in sites in spine spine 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, psoriasis, [id number] unspecified unspecified Other Other Diagnosis Active Adry dysphagia dysphagia Ingrahm [id number] 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 [id number] n n 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 s with s with [id number] current current pathologica pathologica l fracture, l fracture, vertebra(e) vertebra(e) , , subsequent subsequent encounter encounter for for fracture fracture with with routine routine healing healing USP USP Diagnosis Active Adry (current) (current) Ingrahm use of use of [id number] antithrombo antithrombo tics/antipl tics/antipl atelets atelets 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 (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) (current) Ingrahm use of use of [id number] antibiotics antibiotics USP 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 Adry (current) (current) Ingrahm use of use of [id number] systemic systemic steroids steroids USP USP Diagnosis Active Adry (current) (current) Ingrahm use of use of [id number] opiate opiate analgesic analgesic 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 HB400388 below knee below knee Personal Personal Diagnosis Active Adry history of history of Ingrahm nicotine nicotine [id number] dependence dependence Pain frequent Pain Mgmt Resolve 2018-102019-07-18 Grace pain d 0-01 13:00:00 (Pennie) 10:30: Mondragon 00 [id number] Cardio edema Cardiovasc Resolve 2018-102019-07-24 Grace ular d 0-01 09:00:00 (Pennie) 10:30: Mondragon 00 [id number] Respiratory dyspnea Respirator Resolve 2018-102019-07-24 Grace present y d 0-01 09:00:00 (Pennie) 10:30: Mondragon 00 [id number] Endo/David anti-coagul Endo/David Resolve 2018-102019-07-18 Grace ation d 0-01 13:00:00 (Pennie) therapy 10:30: Mondragon [id number] Integument skin Integument Resolve 2018-102019-07-24 Grace integrity d 0-01 09:00:00 (Pennie) risk 10:30: Mondragon [id number] Elimination urinary Eliminatio Resolve 2018-102019-07-24 Grace incontinenc n d 0-01 09:00:00 (Pennie) e 10:30: Mondragon 00 [id number] Neuro confusion Neuro/Emot Resolve 2018-102019-09-26 Grace present ion d 0-01 10:25:00 (Pennie) 10:30: Mondragon [id number] Neuro depressive Neuro/Emot Resolve 2018-102019-09-26 Grace feelings ion d 0-01 10:25:00 (Pennie) present 10:30: Mondragon [id number] Neuro impaired Neuro/Emot Resolve 2018-102019-09-26 Grace decision-ma ion d 0-01 10:25:00 (Pennie) guanako 10:30: [id number] Neuro memory Neuro/Emot Resolve 2018-102019-09-26 Grace deficit ion d 0-01 10:25:00 (Pennie) needing 10:30: Mondragon supervision 00 [id number] Activity ADL Activity Resolve 2018-102019-07-24 Grace assistance d 0-01 09:00:00 (Pennie) required 10:30: Mondragon 00 [id number] Activity self-care Activity Resolve 2018-102019-07-24 Grace deficit d 0-01 09:00:00 (Pennie) 10:30: Mondragon 00 [id number] Safety fall risk Safety Resolve 2018-102019-10-03 Grace factor d 0-01 09:30:00 (Pennie) present 10:30: Mondragon [id number] Safety cannot be Safety Resolve 2018-102019-10-03 Grace left alone d 0-01 09:30:00 (Pennie) 10:30: Mondragon [id number] Safety risk for Safety Resolve 2018-102019-10-03 Grace hospitaliza d 0-01 09:30:00 (Pennie) tion 10:30: Mondragon [id number] Medication oral med Meds Resolve 2018-102019-07-18 Grace assistance d 0-01 13:00:00 (Pennie) required 10:30: Mondragon [id number] Musculoskel transfer Musculoske Resolve 2018-102019-07-24 Grace etal assistance letal d 0-01 09:00:00 (Pennie) required 10:30: Mondragon [id number] Musculoskel requires Musculoske Resolve 2018-102019-07-24 Grace etal human letal d 0-01 09:00:00 (Pennie) assist to 10:30: Mondragon leave home 00 [id number] Nutrition nutritional Nutrition Resolve 2018-102019-07-18 Bimal restriction d 0-02 13:00:00 Anguish s 13:46: [id number] 00 Safety structural Safety Resolve 2018-102019-07-24 Bimal barriers d 0-02 09:00:00 Anguish present 13:46: [id number] 00 Safety can be left Safety Resolve 2018-102019-10-03 Bimal alone for d 0-02 09:30:00 Anguish only short 13:46: [id number] periods 00 Balance/End balance/admissions coordinator PT/OT: Active 2018-10 Bimal urance rdination Balance/En 0-02 Anguish deficit durance 13:46: [id number] 00 Balance/End endurance PT/OT: Active 2018-10 Bimal urance deficit Balance/En 0-02 Anguish durance 13:46: [id number] 00 Equipment prosthesis PT/OT: Active 2018-10 Bimal Mgmt mgmt Equipment 0-02 Anguish deficit Mgmt 13:46: [id number] 00 Gait/Locomo gait PT/OT: Active 2018-10 Bimal tion deficit Gait/Locom 0-02 Anguish problems otion 13:46: [id number] 00 Elimination bowel Eliminatio Resolve 2018-102019-07-24 Adry incontinenc n d 0-15 09:00:00 Ingrahm e 10:00: [id number] 00 Gait/Locomo gait PT/OT: Active 2018-10 Bimal tion assistive Gait/Locom 0-18 Anguish problems device otion 10:20: [id number] present 00 Nutrition nutritional Nutrition Resolve 2018-102019-07-24 Adry restriction d 0-22 09:00:00 Ingrahm s 10:00: [id number] 00 Nutrition nutritional Nutrition Resolve 2018-102019-08-14 Adry restriction d 0-29 09:59:00 Ingrahm s 08:46: [id number] 00 Integument skin Integument Active 2018-10 Velvet [...] ulcer d 2-03 09:30:00 Ingrahm present 09:53: [id number] 00 Integument surgical Integument Resolve 2018-102019-10-03 Adry wound d 2-03 09:30:00 Ingrahm present 09:53: [id number] 00 Integument stasis Integument Resolve 2018-102019-10-03 Maylin ulcer d 2-03 09:30:00 Jefferson present 09:53: [id number] 00 Bed transfer PT/OT: Bed Active 2018-10 Bimal Mobility/Tr deficit: Mobility/T 2-03 Anguish ansfer standing ransfer 11:50: [id number] pivot 00 Bed transfer PT/OT: Bed Active 2018-10 Bimal Mobility/Tr deficit: Mobility/T 2-03 Anguish ansfer toilet/comm ransfer 11:50: [id number] ode 00 Bed transfer PT/OT: Bed Active 2018-10 Bimal Mobility/Tr deficit: Mobility/T 2-03 Anguish ansfer shower/tub ransfer 11:50: [id number] 00 Activity self-care Activity Resolve 2019-10-17 Adry deficit d 10-03 10:00:00 Ingrahm 09:30: [id number] 00 Activity ADL Activity Resolve 2019-10-17 Bimal assistance d 10-07 10:00:00 Anguish required 10:38: [id number] 00 Safety risk for Safety Active Bimal hospitaliza 10-07 Anguish tion 10:38: [id number] 00 Safety can be left Safety Active Adry alone for 10-10 Ingrahm only short 11:20: [id number] periods 00 Activity ADL Activity Active Maylin assistance 10-24 Jefferson required 09:40: [id number] 00 Activity self-care Activity Active Adry deficit 10-24 Ingrahm 09:40: [id number] 00 Safety fall risk Safety Active Adry factor 10-24 Ingrahm present 09:40: [id number] 00 Allergies, Adverse Reactions, Alerts Allergy Name [...]
--- OUTSIDE RECORDS SUMMARY | 2019-12-09 11:54 | XMS REPORT ---
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, disease, [id number] unspecified unspecified 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 pectoris pectoris Essential Essential Diagnosis Active Adry (primary) (primary) 1 Ingrahm hypertensio hypertensio [id number] n n 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 Ingrahm [id number] Enterocolit Enterocolit Diagnosis Active 2018-10 Adry is due to is due to 0-13 Ingrahm Clostridium Clostridium [id number] difficile, difficile, not not specified specified as as recurrent recurrent Raynaud's Raynaud's Diagnosis Active Adry syndrome syndrome Ingrahm without without [id number] gangrene gangrene 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, lymphoma, [id number] unspecified unspecified , , unspecified unspecified site site 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) [id number] (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, seizures, not not intractable intractable , without , without status status epilepticus epilepticus Radiculopat Radiculopat Diagnosis Active Adry hy, lumbar hy, lumbar Ingrahm region region [id number] 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 [id number] 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 [id number] diseases diseases classified classified elsewhere elsewhere Benign Benign Diagnosis Active Adry prostatic prostatic Ingrahm hyperplasia hyperplasia [id number] without without lower lower urinary urinary tract tract symptoms symptoms 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 [id number] unspecified unspecified sites in sites in spine spine 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, psoriasis, [id number] unspecified unspecified Other Other Diagnosis Active Adry dysphagia dysphagia Ingrahm [id number] 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 [id number] n n 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 s with s with [id number] current current pathologica pathologica l fracture, l fracture, vertebra(e) vertebra(e) , , subsequent subsequent encounter encounter for for fracture fracture with with routine routine healing healing intermediate intermediate Diagnosis Active Adry (current) (current) Ingrahm use of use of [id number] antithrombo antithrombo tics/antipl tics/antipl atelets atelets 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 Adry (current) (current) Ingrahm use of use of [id number] antibiotics antibiotics intermediate 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 representative Diagnosis Active Adry (current) (current) Ingrahm use of use of [id number] systemic systemic steroids steroids intermediate intermediate Diagnosis Active Adry (current) (current) Ingrahm use of use of [id number] opiate opiate analgesic analgesic 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 [id number] below knee below knee Personal Personal Diagnosis Active Adry history of history of Ingrahm nicotine nicotine [id number] dependence dependence Pain frequent Pain Mgmt Resolve 2018-102019-07-18 Grace pain d 0-01 13:00:00 (Pennie) 10:30: Mondragon 00 [id number] Cardio edema Cardiovasc Resolve 2018-102019-07-24 Grace ular d 0-01 09:00:00 (Pennie) 10:30: Mondragon 00 [id number] Respiratory dyspnea Respirator Resolve 2018-102019-07-24 Grace present y d 0-01 09:00:00 (Pennie) 10:30: Mondragon 00 [id number] Endo/David anti-coagul Endo/David Resolve 2018-102019-07-18 Grace ation d 0-01 13:00:00 (Pennie) therapy 10:30: Mondragon [id number] Integument skin Integument Resolve 2018-102019-07-24 Grace integrity d 0-01 09:00:00 (Pennie) risk 10:30: Mondragon [id number] Elimination urinary Eliminatio Resolve 2018-102019-07-24 Grace incontinenc n d 0-01 09:00:00 (Pennie) e 10:30: Mondragon 00 [id number] Neuro confusion Neuro/Emot Resolve 2018-102019-09-26 Grace present ion d 0-01 10:25:00 (Pennie) 10:30: Mondragon [id number] Neuro depressive Neuro/Emot Resolve 2018-102019-09-26 Grace feelings ion d 0-01 10:25:00 (Pennie) present 10:30: Mondragon [id number] Neuro impaired Neuro/Emot Resolve 2018-102019-09-26 Grace decision-ma ion d 0-01 10:25:00 (Pennie) guanako 10:30: [id number] Neuro memory Neuro/Emot Resolve 2018-102019-09-26 Grace deficit ion d 0-01 10:25:00 (Pennie) needing 10:30: Mondragon supervision 00 [id number] Activity ADL Activity Resolve 2018-102019-07-24 Grace assistance d 0-01 09:00:00 (Pennie) required 10:30: Mondragon 00 [id number] Activity self-care Activity Resolve 2018-102019-07-24 Grace deficit d 0-01 09:00:00 (Pennie) 10:30: Mondragon 00 [id number] Safety fall risk Safety Resolve 2018-102019-10-03 Grace factor d 0-01 09:30:00 (Pennie) present 10:30: Mondragon [id number] Safety cannot be Safety Resolve 2018-102019-10-03 Grace left alone d 0-01 09:30:00 (Pennie) 10:30: Mondragon [id number] Safety risk for Safety Resolve 2018-102019-10-03 Grace hospitaliza d 0-01 09:30:00 (Pennie) tion 10:30: Mondragon [id number] Medication oral med Meds Resolve 2018-102019-07-18 Grace assistance d 0-01 13:00:00 (Pennie) required 10:30: Mondragon [id number] Musculoskel transfer Musculoske Resolve 2018-102019-07-24 Grace etal assistance letal d 0-01 09:00:00 (Pennie) required 10:30: Mondragon [id number] Musculoskel requires Musculoske Resolve 2018-102019-07-24 Grace etal human letal d 0-01 09:00:00 (Pennie) assist to 10:30: Mondragon leave home 00 [id number] Nutrition nutritional Nutrition Resolve 2018-102019-07-18 Bimal restriction d 0-02 13:00:00 Anguish s 13:46: [id number] 00 Safety structural Safety Resolve 2018-102019-07-24 Bimal barriers d 0-02 09:00:00 Anguish present 13:46: [id number] 00 Safety can be left Safety Resolve 2018-102019-10-03 Bimal alone for d 0-02 09:30:00 Anguish only short 13:46: [id number] periods 00 Balance/End balance/group rooms coordinator PT/OT: Active 2018-10 Bimal urance rdination Balance/En 0-02 Anguish deficit durance 13:46: [id number] 00 Balance/End endurance PT/OT: Active 2018-10 Bimal urance deficit Balance/En 0-02 Anguish durance 13:46: [id number] 00 Equipment prosthesis PT/OT: Active 2018-10 Bimal Mgmt mgmt Equipment 0-02 Anguish deficit Mgmt 13:46: [id number] 00 Gait/Locomo gait PT/OT: Active 2018-10 Bimal tion deficit Gait/Locom 0-02 Anguish problems otion 13:46: [id number] 00 Elimination bowel Eliminatio Resolve 2018-102019-07-24 Adry incontinenc n d 0-15 09:00:00 Ingrahm e 10:00: [id number] 00 Gait/Locomo gait PT/OT: Active 2018-10 Bimal tion assistive Gait/Locom 0-18 Anguish problems device otion 10:20: [id number] present 00 Nutrition nutritional Nutrition Resolve 2018-102019-07-24 Adry restriction d 0-22 09:00:00 Ingrahm s 10:00: [id number] 00 Nutrition nutritional Nutrition Resolve 2018-102019-08-14 Adry restriction d 0-29 09:59:00 Ingrahm s 08:46: [id number] 00 Integument skin Integument Active 2018-10 Velvet [...] ulcer d 2-03 09:30:00 Ingrahm present 09:53: [id number] 00 Integument surgical Integument Resolve 2018-102019-10-03 Adry wound d 2-03 09:30:00 Ingrahm present 09:53: [id number] 00 Integument stasis Integument Resolve 2018-102019-10-03 Maylin ulcer d 2-03 09:30:00 Jefferson present 09:53: [id number] 00 Bed transfer PT/OT: Bed Active 2018-10 Bimal Mobility/Tr deficit: Mobility/T 2-03 Anguish ansfer standing ransfer 11:50: [id number] pivot 00 Bed transfer PT/OT: Bed Active 2018-10 Bimal Mobility/Tr deficit: Mobility/T 2-03 Anguish ansfer toilet/comm ransfer 11:50: [id number] ode 00 Bed transfer PT/OT: Bed Active 2018-10 Bimal Mobility/Tr deficit: Mobility/T 2-03 Anguish ansfer shower/tub ransfer 11:50: [id number] 00 Activity self-care Activity Resolve 2019-10-17 Adry deficit d 10-03 10:00:00 Ingrahm 09:30: [id number] 00 Activity ADL Activity Resolve 2019-10-17 Bimal assistance d 10-07 10:00:00 Anguish required 10:38: [id number] 00 Safety risk for Safety Active Bimal hospitaliza 10-07 Anguish tion 10:38: [id number] 00 Safety can be left Safety Active Adry alone for 10-10 Ingrahm only short 11:20: [id number] periods 00 Activity ADL Activity Active Maylin assistance 10-24 Jefferson required 09:40: [id number] 00 Activity self-care Activity Active Adry deficit 10-24 Ingrahm 09:40: [id number] 00 Safety fall risk Safety Active Adry factor 10-24 Ingrahm present 09:40: [id number] 00 Allergies, Adverse Reactions, Alerts Allergy Name [...]
--- OUTSIDE RECORDS SUMMARY | 2019-12-09 11:54 | XMS REPORT ---
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, disease, [id number] unspecified unspecified 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 [id number] [place]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 without angina angina pectoris pectoris Essential Essential Diagnosis Active Adry (primary) (primary) 1 Ingrahm hypertensio hypertensio [id number] n n 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 Ingrahm [id number] Enterocolit Enterocolit Diagnosis Active 2018-10 Adry is due to is due to 0-13 Ingrahm Clostridium Clostridium [id number] difficile, difficile, not not specified specified as as recurrent recurrent Raynaud's Raynaud's Diagnosis Active Adry syndrome syndrome Ingrahm without without [id number] gangrene gangrene 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, lymphoma, [id number] unspecified unspecified , , unspecified unspecified site site 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) [id number] (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, seizures, not not intractable intractable , without , without status status epilepticus epilepticus Radiculopat Radiculopat Diagnosis Active Adry hy, lumbar hy, lumbar Ingrahm region region [id number] 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 [id number] 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 [id number] diseases diseases classified classified elsewhere elsewhere Benign Benign Diagnosis Active Adry prostatic prostatic Ingrahm hyperplasia hyperplasia [id number] without without lower lower urinary urinary tract tract symptoms symptoms 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 [id number] unspecified unspecified sites in sites in spine spine 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, psoriasis, [id number] unspecified unspecified Other Other Diagnosis Active Adry dysphagia dysphagia Ingrahm [id number] 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 [id number] n n 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 s with s with [id number] current current pathologica pathologica l fracture, l fracture, vertebra(e) vertebra(e) , , subsequent subsequent encounter encounter for for fracture fracture with with routine routine healing healing shelter shelter Diagnosis Active Adry (current) (current) Ingrahm use of use of [id number] antithrombo antithrombo tics/antipl tics/antipl atelets atelets 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 Adry (current) (current) Ingrahm use of use of [id number] antibiotics antibiotics shelter 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 Adry (current) (current) Ingrahm use of use of [id number] systemic systemic steroids steroids shelter shelter Diagnosis Active Adry (current) (current) Ingrahm use of use of [id number] opiate opiate analgesic analgesic 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 [id number] below knee below knee Personal Personal Diagnosis Active Adry history of history of Ingrahm nicotine nicotine [id number] dependence dependence Pain frequent Pain Mgmt Resolve 2018-102019-07-18 Grace pain d 0-01 13:00:00 (Pennie) 10:30: Mondragon 00 [id number] Cardio edema Cardiovasc Resolve 2018-102019-07-24 Graec ular d 0-01 09:00:00 (Pennie) 10:30: Mondragon 00 [id number] Respiratory dyspnea Respirator Resolve 2018-102019-07-24 Grace present y d 0-01 09:00:00 (Pennie) 10:30: Mondragon 00 [id number] Endo/David anti-coagul Endo/David Resolve 2018-102019-07-18 Grace ation d 0-01 13:00:00 (Pennie) therapy 10:30: Mondragon [id number] Integument skin Integument Resolve 2018-102019-07-24 Grace integrity d 0-01 09:00:00 (Pennie) risk 10:30: Mondragon [id number] Elimination urinary Eliminatio Resolve 2018-102019-07-24 Grace incontinenc n d 0-01 09:00:00 (Pennie) e 10:30: Mondragon 00 [id number] Neuro confusion Neuro/Emot Resolve 2018-102019-09-26 Grace present ion d 0-01 10:25:00 (Pennie) 10:30: Mondragon [id number] Neuro depressive Neuro/Emot Resolve 2018-102019-09-26 Grace feelings ion d 0-01 10:25:00 (Pennie) present 10:30: Mondragon [id number] Neuro impaired Neuro/Emot Resolve 2018-102019-09-26 Grace decision-ma ion d 0-01 10:25:00 (Pennie) guanako 10:30: [id number] Neuro memory Neuro/Emot Resolve 2018-102019-09-26 Grace deficit ion d 0-01 10:25:00 (Pennie) needing 10:30: Mondragon supervision 00 [id number] Activity ADL Activity Resolve 2018-102019-07-24 Grace assistance d 0-01 09:00:00 (Pennie) required 10:30: Mondragon 00 [id number] Activity self-care Activity Resolve 2018-102019-07-24 Grace deficit d 0-01 09:00:00 (Pennie) 10:30: Mondragon 00 [id number] Safety fall risk Safety Resolve 2018-102019-10-03 Grace factor d 0-01 09:30:00 (Pennie) present 10:30: Mondragon [id number] Safety cannot be Safety Resolve 2018-102019-10-03 Grace left alone d 0-01 09:30:00 (Pennie) 10:30: Mondragon [id number] Safety risk for Safety Resolve 2018-102019-10-03 Grace hospitaliza d 0-01 09:30:00 (Pennie) tion 10:30: Mondragon [id number] Medication oral med Meds Resolve 2018-102019-07-18 Grace assistance d 0-01 13:00:00 (Pennie) required 10:30: Mondragon [id number] Musculoskel transfer Musculoske Resolve 2018-102019-07-24 Grace etal assistance letal d 0-01 09:00:00 (Pennie) required 10:30: Mondragon [id number] Musculoskel requires Musculoske Resolve 2018-102019-07-24 Grace etal human letal d 0-01 09:00:00 (Pennie) assist to 10:30: Mondragon leave home 00 [id number] Nutrition nutritional Nutrition Resolve 2018-102019-07-18 Bimal restriction d 0-02 13:00:00 Anguish s 13:46: [id number] 00 Safety structural Safety Resolve 2018-102019-07-24 Bimal barriers d 0-02 09:00:00 Anguish present 13:46: [id number] 00 Safety can be left Safety Resolve 2018-102019-10-03 Bimal alone for d 0-02 09:30:00 Anguish only short 13:46: [id number] periods 00 Balance/End balance/rental coordinator PT/OT: Active 2018-10 Bimal urance rdination Balance/En 0-02 Anguish deficit durance 13:46: [id number] 00 Balance/End endurance PT/OT: Active 2018-10 Bimal urance deficit Balance/En 0-02 Anguish durance 13:46: [id number] 00 Equipment prosthesis PT/OT: Active 2018-10 Bimal Mgmt mgmt Equipment 0-02 Anguish deficit Mgmt 13:46: [id number] 00 Gait/Locomo gait PT/OT: Active 2018-10 Bimal tion deficit Gait/Locom 0-02 Anguish problems otion 13:46: [id number] 00 Elimination bowel Eliminatio Resolve 2018-102019-07-24 Adry incontinenc n d 0-15 09:00:00 Ingrahm e 10:00: [id number] 00 Gait/Locomo gait PT/OT: Active 2018-10 Bimal tion assistive Gait/Locom 0-18 Anguish problems device otion 10:20: [id number] present 00 Nutrition nutritional Nutrition Resolve 2018-102019-07-24 Ardy restriction d 0-22 09:00:00 Ingrahm s 10:00: [id number] 00 Nutrition nutritional Nutrition Resolve 2018-102019-08-14 Adry restriction d 0-29 09:59:00 Ingrahm s 08:46: [id number] 00 Integument skin Integument Active 2018-10 Velvet [...] ulcer d 2-03 09:30:00 Ingrahm present 09:53: [id number] 00 Integument surgical Integument Resolve 2018-102019-10-03 Adry wound d 2-03 09:30:00 Ingrahm present 09:53: [id number] 00 Integument stasis Integument Resolve 2018-102019-10-03 Maylin ulcer d 2-03 09:30:00 Jefferson present 09:53: [id number] 00 Bed transfer PT/OT: Bed Active 2018-10 Bimal Mobility/Tr deficit: Mobility/T 2-03 Anguish ansfer standing ransfer 11:50: [id number] pivot 00 Bed transfer PT/OT: Bed Active 2018-10 Bimal Mobility/Tr deficit: Mobility/T 2-03 Anguish ansfer toilet/comm ransfer 11:50: [id number] ode 00 Bed transfer PT/OT: Bed Active 2018-10 Bimal Mobility/Tr deficit: Mobility/T 2-03 Anguish ansfer shower/tub ransfer 11:50: [id number] 00 Activity self-care Activity Resolve 2019-10-17 Adry deficit d 10-03 10:00:00 Ingrahm 09:30: [id number] 00 Activity ADL Activity Resolve 2019-10-17 Bimal assistance d 10-07 10:00:00 Anguish required 10:38: [id number] 00 Safety risk for Safety Active Bimal hospitaliza 10-07 Anguish tion 10:38: [id number] 00 Safety can be left Safety Active Adry alone for 10-10 Ingrahm only short 11:20: [id number] periods 00 Activity ADL Activity Active Maylin assistance 10-24 Jefferson required 09:40: [id number] 00 Activity self-care Activity Active Adry deficit 10-24 Ingrahm 09:40: [id number] 00 Safety fall risk Safety Active Adry factor 10-24 Ingrahm present 09:40: [id number] 00 Allergies, Adverse Reactions, Alerts Allergy Name [...] Castillo Unknown Unknown 20 mg 20 mg MD,Amy tablet tablet risedronate risedronate No Castillo Unknown Unknown 35 mg 35 mg MD,May tablet tablet tamsulosin tamsulosin No Castillo Unknown Unknown 0.4 mg 0.4 mg MD,May capsule capsule sildenafil sildenafil 2018-10 No Castlilo Unknown Unknown (pulmonary (pulmonary ,May hypertensio hypertensio [...]
--- OUTSIDE RECORDS SUMMARY | 2019-12-09 11:55 | XMS REPORT ---
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, disease, [id number] unspecified unspecified 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 angina angina pectoris pectoris Essential Essential Diagnosis Active Adry (primary) (primary) 1 Ingrahm hypertensio hypertensio [id number] n n 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 Ingrahm [id number] Enterocolit Enterocolit Diagnosis Active 2018-10 Adry is due to is due to 0-13 Ingrahm Clostridium Clostridium [id number] difficile, difficile, not not specified specified as as recurrent recurrent Raynaud's Raynaud's Diagnosis Active Adry syndrome syndrome Ingrahm without without [id number] gangrene gangrene 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, lymphoma, 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 unspecified unspecified , , unspecified unspecified site site 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) [id number] (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, seizures, not not intractable intractable , without , without status status epilepticus epilepticus Radiculopat Radiculopat Diagnosis Active Adry hy, lumbar hy, lumbar Ingrahm region region [id number] 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 [id number] diseases diseases classified classified elsewhere elsewhere Benign Benign Diagnosis Active Adry prostatic prostatic Ingrahm hyperplasia hyperplasia [id number] without without lower lower urinary urinary tract tract symptoms symptoms 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 [id number] unspecified unspecified sites in sites in spine spine 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, psoriasis, [id number] unspecified unspecified Other Other Diagnosis Active Adry dysphagia dysphagia Ingrahm [id number] 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 [id number] n n 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 s with s with [id number] current current pathologica pathologica l fracture, l fracture, vertebra(e) vertebra(e) , , subsequent subsequent encounter encounter for for fracture fracture with with routine routine healing healing 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 Adry (current) (current) Ingrahm use of use of [id number] antithrombo antithrombo tics/antipl tics/antipl atelets atelets 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 Adry (current) (current) Ingrahm use of use of [id number] antibiotics antibiotics termite renewal inspector longterm Diagnosis Active Adry (current) (current) Ingrahm use of use of [id number] systemic systemic steroids steroids longterm longterm Diagnosis Active Adry (current) (current) Ingrahm use of use of [id number] opiate opiate analgesic analgesic 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 [id number] below knee below knee Personal Personal Diagnosis Active Adry history of history of Ingrahm nicotine nicotine [id number] dependence dependence Pain frequent Pain Mgmt Resolve 2018-102019-07-18 Grace pain d 0-01 13:00:00 (Pennie) 10:30: Mondragon 00 [id number] Cardio edema Cardiovasc Resolve 2018-102019-07-24 Grace ular d 0-01 09:00:00 (Pennie) 10:30: Mondragon 00 [id number] Respiratory dyspnea Respirator Resolve 2018-102019-07-24 Grace present y d 0-01 09:00:00 (Pennie) 10:30: Mondragon 00 [id number] Endo/David anti-coagul Endo/David Resolve 2018-102019-07-18 Grace ation d 0-01 13:00:00 (Pennie) therapy 10:30: Mondragon [id number] Integument skin Integument Resolve 2018-102019-07-24 Grace integrity d 0-01 09:00:00 (Pennie) risk 10:30: Mondragon [id number] Elimination urinary Eliminatio Resolve 2018-102019-07-24 Grace incontinenc n d 0-01 09:00:00 (Pennie) e 10:30: Mondragon 00 [id number] Neuro confusion Neuro/Emot Resolve 2018-102019-09-26 Grace present ion d 0-01 10:25:00 (Pennie) 10:30: Mondragon [id number] Neuro depressive Neuro/Emot Resolve 2018-102019-09-26 Grace feelings ion d 0-01 10:25:00 (Pennie) present 10:30: Mondragon [id number] Neuro impaired Neuro/Emot Resolve 2018-102019-09-26 Grace decision-ma ion d 0-01 10:25:00 (Pennie) guanako 10:30: [id number] Neuro memory Neuro/Emot Resolve 2018-102019-09-26 Grace deficit ion d 0-01 10:25:00 (Pennie) needing 10:30: Mondragon supervision 00 [id number] Activity ADL Activity Resolve 2018-102019-07-24 Grace assistance d 0-01 09:00:00 (Pennie) required 10:30: Mondragon 00 [id number] Activity self-care Activity Resolve 2018-102019-07-24 Grace deficit d 0-01 09:00:00 (Pennie) 10:30: Mondragon 00 [id number] Safety fall risk Safety Resolve 2018-102019-10-03 Grace factor d 0-01 09:30:00 (Pennie) present 10:30: Mondragon [id number] Safety cannot be Safety Resolve 2018-102019-10-03 Grace left alone d 0-01 09:30:00 (Pennie) 10:30: Mondragon [id number] Safety risk for Safety Resolve 2018-102019-10-03 Grace hospitaliza d 0-01 09:30:00 (Pennie) tion 10:30: Mondragon [id number] Medication oral med Meds Resolve 2018-102019-07-18 Grace assistance d 0-01 13:00:00 (Pennie) required 10:30: Mondragon [id number] Musculoskel transfer Musculoske Resolve 2018-102019-07-24 Grace etal assistance letal d 0-01 09:00:00 (Pennie) required 10:30: Mondragon [id number] Musculoskel requires Musculoske Resolve 2018-102019-07-24 Grace etal human letal d 0-01 09:00:00 (Pennie) assist to 10:30: Mondragon leave home 00 [id number] Nutrition nutritional Nutrition Resolve 2018-102019-07-18 Bimal restriction d 0-02 13:00:00 Anguish s 13:46: [id number] 00 Safety structural Safety Resolve 2018-102019-07-24 Bimal barriers d 0-02 09:00:00 Anguish present 13:46: [id number] 00 Safety can be left Safety Resolve 2018-102019-10-03 Bimal alone for d 0-02 09:30:00 Anguish only short 13:46: [id number] periods 00 Balance/End balance/distance learning 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 coordinator PT/OT: Active 2018-10 Bimal urance rdination Balance/En 0-02 Anguish deficit durance 13:46: [id number] 00 Balance/End endurance PT/OT: Active 2018-10 Bimal urance deficit Balance/En 0-02 Anguish durance 13:46: [id number] 00 Equipment prosthesis PT/OT: Active 2018-10 Bimal Mgmt mgmt Equipment 0-02 Anguish deficit Mgmt 13:46: [id number] 00 Gait/Locomo gait PT/OT: Active 2018-10 Bimal tion deficit Gait/Locom 0-02 Anguish problems otion 13:46: [id number] 00 Elimination bowel Eliminatio Resolve 2018-102019-07-24 Adry incontinenc n d 0-15 09:00:00 Ingrahm e 10:00: [id number] 00 Gait/Locomo gait PT/OT: Active 2018-10 Bimal tion assistive Gait/Locom 0-18 Anguish problems device otion 10:20: [id number] present 00 Nutrition nutritional Nutrition Resolve 2018-102019-07-24 Adry restriction d 0-22 09:00:00 Ingrahm s 10:00: [id number] 00 Nutrition nutritional Nutrition Resolve 2018-102019-08-14 Adry restriction d 0-29 09:59:00 Ingrahm s 08:46: [id number] 00 Integument skin Integument Active 2018-10 Velvet [...] ulcer d 2-03 09:30:00 Ingrahm present 09:53: [id number] 00 Integument surgical Integument Resolve 2018-102019-10-03 Adry wound d 2-03 09:30:00 Ingrahm present 09:53: [id number] 00 Integument stasis Integument Resolve 2018-102019-10-03 Maylin ulcer d 2-03 09:30:00 Jefferson present 09:53: [id number] 00 Bed transfer PT/OT: Bed Active 2018-10 Bimal Mobility/Tr deficit: Mobility/T 2-03 Anguish ansfer standing ransfer 11:50: [id number] pivot 00 Bed transfer PT/OT: Bed Active 2018-10 Bimal Mobility/Tr deficit: Mobility/T 2-03 Anguish ansfer toilet/comm ransfer 11:50: [id number] ode 00 Bed transfer PT/OT: Bed Active 2018-10 Bimal Mobility/Tr deficit: Mobility/T 2-03 Anguish ansfer shower/tub ransfer 11:50: [id number] 00 Activity self-care Activity Resolve 2019-10-17 Adry deficit d 10-03 10:00:00 Ingrahm 09:30: [id number] 00 Activity ADL Activity Resolve 2019-10-17 Bimal assistance d 10-07 10:00:00 Anguish required 10:38: [id number] 00 Safety risk for Safety Active Bimal hospitaliza 10-07 Anguish tion 10:38: [id number] 00 Safety can be left Safety Active Adry alone for 10-10 Ingrahm only short 11:20: [id number] periods 00 Activity ADL Activity Active Maylin assistance 10-24 Jefferson required 09:40: [id number] 00 Activity self-care Activity Active Adry deficit 10-24 Ingrahm 09:40: [id number] 00 Safety fall risk Safety Active Adry factor 10-24 Ingrahm present 09:40: [id number] 00 Allergies, Adverse Reactions, Alerts Allergy Name [...] 2018-10 No Castillo Unknown Unknown (pulmonary (pulmonary 0 MD,May hypertensio hypertensio n) 20 mg n) 20 mg tablet tablet magnesium magnesium 2018-10- No Castillo Unknown Unknown 250 mg (as 250 mg (as 0- MD,May magnesium magnesium oxide) oxide) tablet tablet potassium potassium 2018-10 No Castillo Unknown Unknown chloride ER chloride ER 0-15 - MD,May 20 mEq 20 mEq tablet,exte tablet,exte nded nded release(par release(par t/cryst) t/cryst) vancomycin vancomycin 2018-10 No Castillo Unknown Unknown 125 mg 125 mg 0- MD,May capsule capsule magnesium magnesium 2018-10 Yes Castillo Unknown Unknown 250 mg (as 250 mg (as 10-23 MD,May magnesium magnesium oxide) oxide) tablet tablet potassium potassium 2018-10 Yes Castillo Unknown Unknown chloride ER chloride ER 10-23 MD,May 20 mEq 20 mEq tablet,exte tablet,exte nded nded release(par release(par t/cryst) t/cryst) omeprazole omeprazole 2018-10 Yes Castillo Unknown Unknown 20 mg 20 mg 10-23 MD,May capsule,del capsule,del ayed ayed release release doxycycline doxycycline 2018-10 Yes Castillo Unknown Unknown hyclate 100 hyclate 100 10-23 MD,May mg capsule mg capsule sodium sodium 2018-10 Yes Castillo Unknown Unknown chloride 1 chloride 1 10-23 MD,May gram tablet gram tablet gabapentin gabapentin 2018-10 Yes Castillo Unknown Unknown 600 mg 600 mg 10-23 MD,May tablet tablet Vital Signs Vital Name Observation Time Observation Value Comments SYSTOLIC mm[Hg] 2019-11-06 18:10:15 140 mm[Hg] mm[Hg] Method: Sit SYSTOLIC mm[Hg] 2019-07-06 18:08:12 130 mm[Hg] mm[Hg] Method: Stand DIASTOLIC mm[Hg] 2019-11-06 18:10:15 70 mm[Hg] mm[Hg] Method: Sit DIASTOLIC mm[Hg] 2019-07-06 18:08:12 90 mm[Hg] mm[Hg] Method: Stand PULSE 2019-11-06 18:10:15 56 /min /min RESP RATE 2019-11-02 18:10:11 16 /min /min TEMP 2019-11-06 18:10:15 98.5 [degF] Procedures This patient has no known procedures. Results This patient has no known results.
--- OUTSIDE RECORDS SUMMARY | 2019-12-09 11:55 | XMS REPORT ---
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, disease, [id number] unspecified unspecified 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 [id number] [place]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 without angina angina pectoris pectoris Essential Essential Diagnosis Active Ardy (primary) (primary) 10-01 Ingrahm hypertensio hypertensio [id number] n n 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 Ingrahm [id number] Enterocolit Enterocolit Diagnosis Active 2018-10 Adry is due to is due to 0-13 Ingrahm Clostridium Clostridium [id number] difficile, difficile, not not specified specified as as recurrent recurrent Raynaud's Raynaud's Diagnosis Active Adry syndrome syndrome Ingrahm without without [id number] gangrene gangrene 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, lymphoma, [id number] unspecified unspecified , , unspecified unspecified site site 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) [id number] (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, seizures, not not intractable intractable , without , without status status epilepticus epilepticus Radiculopat Radiculopat Diagnosis Active Adry hy, lumbar hy, lumbar Ingrahm region region [id number] 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 [id number] 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 [id number] diseases diseases classified classified elsewhere elsewhere Benign Benign Diagnosis Active Adry prostatic prostatic Ingrahm hyperplasia hyperplasia [id number] without without lower lower urinary urinary tract tract symptoms symptoms 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 [id number] insufficien insufficien cy 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 [id number] unspecified unspecified sites in sites in spine spine 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, psoriasis, [id number] unspecified unspecified Other Other Diagnosis Active Adry dysphagia dysphagia Ingrahm [id number] Unspecified Unspecified Diagnosis Active Dary macular macular Ingrahm degeneratio degeneratio [id number] n n 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 s with s with [id number] current current pathologica pathologica l fracture, l fracture, vertebra(e) vertebra(e) , , subsequent subsequent encounter encounter for for fracture fracture with with routine routine healing healing custodial custodial Diagnosis Active Adry (current) (current) Ingrahm use of use of [id number] antithrombo antithrombo tics/antipl tics/antipl atelets atelets 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 Adry (current) (current) Ingrahm use of use of [id number] antibiotics antibiotics custodial 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 Adry (current) (current) Ingrahm use of use of [id number] systemic systemic steroids steroids custodial custodial Diagnosis Active Adry (current) (current) Ingrahm use of use of [id number] opiate opiate analgesic analgesic 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 [id number] below knee below knee Personal Personal Diagnosis Active Adry history of history of Ingrahm nicotine nicotine [id number] dependence dependence Pain frequent Pain Mgmt Resolve 2018-102019-07-18 Grace pain d 0-01 13:00:00 (Pennie) 10:30: Mondragon 00 [id number] Cardio edema Cardiovasc Resolve 2018-102019-07-24 Grace ular d 0-01 09:00:00 (Pennie) 10:30: Mondragon 00 [id number] Respiratory dyspnea Respirator Resolve 2018-102019-07-24 Grace present y d 0-01 09:00:00 (Pennie) 10:30: Mondragon 00 [id number] Endo/David anti-coagul Endo/David Resolve 2018-102019-07-18 Grace ation d 0-01 13:00:00 (Pennie) therapy 10:30: Mondragon [id number] Integument skin Integument Resolve 2018-102019-07-24 Grace integrity d 0-01 09:00:00 (Pennie) risk 10:30: Mnodragon [id number] Elimination urinary Eliminatio Resolve 2018-102019-07-24 Grace incontinenc n d 0-01 09:00:00 (Pennie) e 10:30: Mondragon 00 [id number] Neuro confusion Neuro/Emot Resolve 2018-102019-09-26 Grace present ion d 0-01 10:25:00 (Pennie) 10:30: Mondragon [id number] Neuro depressive Neuro/Emot Resolve 2018-102019-09-26 Grace feelings ion d 0-01 10:25:00 (Pennie) present 10:30: Mondragon [id number] Neuro impaired Neuro/Emot Resolve 2018-102019-09-26 Grace decision-ma ion d 0-01 10:25:00 (Pennie) guanako 10:30: [id number] Neuro memory Neuro/Emot Resolve 2018-102019-09-26 Grace deficit ion d 0-01 10:25:00 (Pennie) needing 10:30: Mondragon supervision 00 [id number] Activity ADL Activity Resolve 2018-102019-07-24 Grace assistance d 0-01 09:00:00 (Pennie) required 10:30: Mondragon 00 [id number] Activity self-care Activity Resolve 2018-102019-07-24 Grace deficit d 0-01 09:00:00 (Pennie) 10:30: Mondragon 00 [id number] Safety fall risk Safety Resolve 2018-102019-10-03 Grace factor d 0-01 09:30:00 (Pennie) present 10:30: Mondragon [id number] Safety cannot be Safety Resolve 2018-102019-10-03 Grace left alone d 0-01 09:30:00 (Pennie) 10:30: Mondragon [id number] Safety risk for Safety Resolve 2018-102019-10-03 Grace hospitaliza d 0-01 09:30:00 (Pennie) tion 10:30: Mondragon [id number] Medication oral med Meds Resolve 2018-102019-07-18 Grace assistance d 0-01 13:00:00 (Pennie) required 10:30: Mondragon [id number] Musculoskel transfer Musculoske Resolve 2018-102019-07-24 Grace etal assistance letal d 0-01 09:00:00 (Pennie) required 10:30: Mondragon [id number] Musculoskel requires Musculoske Resolve 2018-102019-07-24 Grace etal human letal d 0-01 09:00:00 (Pennie) assist to 10:30: Mondragon leave home 00 [id number] Nutrition nutritional Nutrition Resolve 2018-102019-07-18 Bimal restriction d 0-02 13:00:00 Anguish s 13:46: [id number] 00 Safety structural Safety Resolve 2018-102019-07-24 Bimal barriers d 0-02 09:00:00 Anguish present 13:46: [id number] 00 Safety can be left Safety Resolve 2018-102019-10-03 Bimal alone for d 0-02 09:30:00 Anguish only short 13:46: [id number] periods 00 Balance/End balance/scooping 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 tender PT/OT: Active 2018-10 Bimal urance rdination Balance/En 0-02 Anguish deficit durance 13:46: [id number] 00 Balance/End endurance PT/OT: Active 2018-10 Bimal urance deficit Balance/En 0-02 Anguish durance 13:46: [id number] 00 Equipment prosthesis PT/OT: Active 2018-10 Bimal Mgmt mgmt Equipment 0-02 Anguish deficit Mgmt 13:46: [id number] 00 Gait/Locomo gait PT/OT: Active 2018-10 Bimal tion deficit Gait/Locom 0-02 Anguish problems otion 13:46: [id number] 00 Elimination bowel Eliminatio Resolve 2018-102019-07-24 Adry incontinenc n d 0-15 09:00:00 Ingrahm e 10:00: [id number] 00 Gait/Locomo gait PT/OT: Active 2018-10 Bimal tion assistive Gait/Locom 0-18 Anguish problems device otion 10:20: [id number] present 00 Nutrition nutritional Nutrition Resolve 2018-102019-07-24 Adry restriction d 0-22 09:00:00 Ingrahm s 10:00: [id number] 00 Nutrition nutritional Nutrition Resolve 2018-102019-08-14 Adry restriction d 0-29 09:59:00 Ingrahm s 08:46: [id number] 00 Integument skin Integument Active 2018-10 Velvet [...] ulcer d 2-03 09:30:00 Ingrahm present 09:53: [id number] 00 Integument surgical Integument Resolve 2018-102019-10-03 Adry wound d 2-03 09:30:00 Ingrahm present 09:53: [id number] 00 Integument stasis Integument Resolve 2018-102019-10-03 Maylin ulcer d 2-03 09:30:00 Jefferson present 09:53: [id number] 00 Bed transfer PT/OT: Bed Active 2018-10 Bimal Mobility/Tr deficit: Mobility/T 2-03 Anguish ansfer standing ransfer 11:50: [id number] pivot 00 Bed transfer PT/OT: Bed Active 2018-10 Bimal Mobility/Tr deficit: Mobility/T 2-03 Anguish ansfer toilet/comm ransfer 11:50: [id number] ode 00 Bed transfer PT/OT: Bed Active 2018-10 Bimal Mobility/Tr deficit: Mobility/T 2-03 Anguish ansfer shower/tub ransfer 11:50: [id number] 00 Activity self-care Activity Resolve 2019-10-17 Adry deficit d 10-03 10:00:00 Ingrahm 09:30: [id number] 00 Activity ADL Activity Resolve 2019-10-17 Bimal assistance d 10-07 10:00:00 Anguish required 10:38: [id number] 00 Safety risk for Safety Active Bimal hospitaliza 10-07 Anguish tion 10:38: [id number] 00 Safety can be left Safety Active Adry alone for 10-10 Ingrahm only short 11:20: [id number] periods 00 Activity ADL Activity Active Maylin assistance 10-24 Jefferson required 09:40: [id number] 00 Activity self-care Activity Active Adry deficit 10-24 Ingrahm 09:40: [id number] 00 Safety fall risk Safety Active Adry factor 10-24 Ingrahm present 09:40: [id number] 00 Allergies, Adverse Reactions, Alerts Allergy Name [...] Observation Time Observation Value Comments SYSTOLIC mm[Hg] 2019-11-11 18:10:20 120 mm[Hg] mm[Hg] Method: Sit SYSTOLIC mm[Hg] 2019-07-06 18:08:12 130 mm[Hg] mm[Hg] Method: Stand DIASTOLIC mm[Hg] 2019-11-11 18:10:20 64 mm[Hg] mm[Hg] Method: Sit DIASTOLIC mm[Hg] 2019-07-06 18:08:12 90 mm[Hg] mm[Hg] Method: Stand PULSE 2019-11-11 18:10:20 60 /min /min RESP RATE 2019-11-02 18:10:11 16 /min /min TEMP 2019-11-11 18:10:20 98.3 [degF] Procedures This patient has no known procedures. Results This patient has no known results.
--- OUTSIDE RECORDS SUMMARY | 2019-12-09 11:55 | XMS REPORT ---
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 0- Ingrahm ulcer of ulcer of [id number] other part other part of left of left foot foot limited to limited to breakdown breakdown of skin of skin Peripheral Peripheral Diagnosis Active Adry vascular vascular 10-01 Ingrahm disease, disease, [id number] unspecified unspecified 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 [id number] [place]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 without angina angina pectoris pectoris Essential Essential Diagnosis Active Adry (primary) (primary) 1 Ingrahm hypertensio hypertensio [id number] n n 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 Ingrahm [id number] Enterocolit Enterocolit Diagnosis Active 2018-10 Adry is due to is due to 0-13 Ingrahm Clostridium Clostridium [id number] difficile, difficile, not not specified specified as as recurrent recurrent Raynaud's Raynaud's Diagnosis Active Adry syndrome syndrome Ingrahm without without [id number] gangrene gangrene 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, lymphoma, [id number] unspecified unspecified , , unspecified unspecified site site 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) [id number] (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, seizures, not not intractable intractable , without , without status status epilepticus epilepticus Radiculopat Radiculopat Diagnosis Active Adry hy, lumbar hy, lumbar Ingrahm region region [id number] 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 [id number] 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 [id number] diseases diseases classified classified elsewhere elsewhere Benign Benign Diagnosis Active Adry prostatic prostatic Ingrahm hyperplasia hyperplasia [id number] without without lower lower urinary urinary tract tract symptoms symptoms 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 [id number] insufficien insufficien cy 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 [id number] unspecified unspecified sites in sites in spine spine 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, psoriasis, [id number] unspecified unspecified Other Other Diagnosis Active Adry dysphagia dysphagia Ingrahm [id number] 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 [id number] n n 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 s with s with [id number] current current pathologica pathologica l fracture, l fracture, vertebra(e) vertebra(e) , , subsequent subsequent encounter encounter for for fracture fracture with with routine routine healing healing FPC FPC Diagnosis Active Adry (current) (current) Ingrahm use of use of [id number] antithrombo antithrombo tics/antipl tics/antipl atelets atelets watermelon inspector watermelon inspector Diagnosis Active Adry (current) (current) Ingrahm use of use of [id number] antibiotics antibiotics FPC watermelon inspector Diagnosis Active Adry (current) (current) Ingrahm use of use of [id number] systemic systemic steroids steroids FPC FPC Diagnosis Active Adry (current) (current) Ingrahm use of use of [id number] opiate opiate analgesic analgesic 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 [id number] below knee below knee Personal Personal Diagnosis Active Adry history of history of Ingrahm nicotine nicotine [id number] dependence dependence Pain frequent Pain Mgmt Resolve 2018-102019-07-18 Grace pain d 0-01 13:00:00 (Pennie) 10:30: Mondragon 00 [id number] Cardio edema Cardiovasc Resolve 2018-102019-07-24 Grace ular d 0-01 09:00:00 (Pennie) 10:30: Mondragon 00 [id number] Respiratory dyspnea Respirator Resolve 2018-102019-07-24 Grace present y d 0-01 09:00:00 (Pennie) 10:30: Mondragon 00 [id number] Endo/David anti-coagul Endo/David Resolve 2018-102019-07-18 Grace ation d 0-01 13:00:00 (Pennie) therapy 10:30: Mondragon [id number] Integument skin Integument Resolve 2018-102019-07-24 Grace integrity d 0-01 09:00:00 (Pennie) risk 10:30: Mondragon [id number] Elimination urinary Eliminatio Resolve 2018-102019-07-24 Grace incontinenc n d 0-01 09:00:00 (Pennie) e 10:30: Mondragon 00 [id number] Neuro confusion Neuro/Emot Resolve 2018-102019-09-26 Grace present ion d 0-01 10:25:00 (Pennie) 10:30: Mondragon [id number] Neuro depressive Neuro/Emot Resolve 2018-102019-09-26 Grace feelings ion d 0-01 10:25:00 (Pennie) present 10:30: Mondragon [id number] Neuro impaired Neuro/Emot Resolve 2018-102019-09-26 Grace decision-ma ion d 0-01 10:25:00 (Pennie) guanako 10:30: [id number] Neuro memory Neuro/Emot Resolve 2018-102019-09-26 Grace deficit ion d 0-01 10:25:00 (Pennie) needing 10:30: Mondragon supervision 00 [id number] Activity ADL Activity Resolve 2018-102019-07-24 Grace assistance d 0-01 09:00:00 (Pennie) required 10:30: Mondragon 00 [id number] Activity self-care Activity Resolve 2018-102019-07-24 Grace deficit d 0-01 09:00:00 (Pennie) 10:30: Mondragon 00 [id number] Safety fall risk Safety Resolve 2018-102019-10-03 Grace factor d 0-01 09:30:00 (Pennie) present 10:30: Mondragon [id number] Safety cannot be Safety Resolve 2018-102019-10-03 Grace left alone d 0-01 09:30:00 (Pennie) 10:30: Mondragon [id number] Safety risk for Safety Resolve 2018-102019-10-03 Grace hospitaliza d 0-01 09:30:00 (Pennie) tion 10:30: Mondragon [id number] Medication oral med Meds Resolve 2018-102019-07-18 Grace assistance d 0-01 13:00:00 (Pennie) required 10:30: Mondragon [id number] Musculoskel transfer Musculoske Resolve 2018-102019-07-24 Grace etal assistance letal d 0-01 09:00:00 (Pennie) required 10:30: Mondragon [id number] Musculoskel requires Musculoske Resolve 2018-102019-07-24 Grace etal human letal d 0-01 09:00:00 (Pennie) assist to 10:30: Mondragon leave home 00 [id number] Nutrition nutritional Nutrition Resolve 2018-102019-07-18 Bimal restriction d 0-02 13:00:00 Anguish s 13:46: [id number] 00 Safety structural Safety Resolve 2018-102019-07-24 Bimal barriers d 0-02 09:00:00 Anguish present 13:46: [id number] 00 Safety can be left Safety Resolve 2018-102019-10-03 Bimal alone for d 0-02 09:30:00 Anguish only short 13:46: [id number] periods 00 Balance/End balance/solar project coordination specialist PT/OT: Active 2018-10 Bimal urance rdination Balance/En 0-02 Anguish deficit durance 13:46: [id number] 00 Balance/End endurance PT/OT: Active 2018-10 Bimal urance deficit Balance/En 0-02 Anguish durance 13:46: [id number] 00 Equipment prosthesis PT/OT: Active 2018-10 Bimal Mgmt mgmt Equipment 0-02 Anguish deficit Mgmt 13:46: [id number] 00 Gait/Locomo gait PT/OT: Active 2018-10 Bimal tion deficit Gait/Locom 0-02 Anguish problems otion 13:46: [id number] 00 Elimination bowel Eliminatio Resolve 2018-102019-07-24 Adry incontinenc n d 0-15 09:00:00 Ingrahm e 10:00: [id number] 00 Gait/Locomo gait PT/OT: Active 2018-10 Bimal tion assistive Gait/Locom 0-18 Anguish problems device otion 10:20: [id number] present 00 Nutrition nutritional Nutrition Resolve 2018-102019-07-24 Adry restriction d 0-22 09:00:00 Ingrahm s 10:00: [id number] 00 Nutrition nutritional Nutrition Resolve 2018-102019-08-14 Adry restriction d 0-29 09:59:00 Ingrahm s 08:46: [id number] 00 Integument skin Integument Active 2018-10 Velvet [...] ulcer d 2-03 09:30:00 Ingrahm present 09:53: [id number] 00 Integument surgical Integument Resolve 2018-102019-10-03 Adry wound d 2-03 09:30:00 Ingrahm present 09:53: [id number] 00 Integument stasis Integument Resolve 2018-102019-10-03 Maylin ulcer d 2-03 09:30:00 Jefferson present 09:53: [id number] 00 Bed transfer PT/OT: Bed Active 2018-10 Bimal Mobility/Tr deficit: Mobility/T 2-03 Anguish ansfer standing ransfer 11:50: [id number] pivot 00 Bed transfer PT/OT: Bed Active 2018-10 Bimal Mobility/Tr deficit: Mobility/T 2-03 Anguish ansfer toilet/comm ransfer 11:50: [id number] ode 00 Bed transfer PT/OT: Bed Active 2018-10 Bimal Mobility/Tr deficit: Mobility/T 2-03 Anguish ansfer shower/tub ransfer 11:50: [id number] 00 Activity self-care Activity Resolve 2019-10-17 Adry deficit d 10-03 10:00:00 Ingrahm 09:30: [id number] 00 Activity ADL Activity Resolve 2019-10-17 Bimal assistance d 10-07 10:00:00 Anguish required 10:38: [id number] 00 Safety risk for Safety Active Bimal hospitaliza 10-07 Anguish tion 10:38: [id number] 00 Safety can be left Safety Active Adry alone for 10-10 Ingrahm only short 11:20: [id number] periods 00 Activity ADL Activity Active Maylin assistance 10-24 Jefferson required 09:40: [id number] 00 Activity self-care Activity Active Adry deficit 10-24 Ingrahm 09:40: [id number] 00 Safety fall risk Safety Active Adry factor 10-24 Ingrahm present 09:40: [id number] 00 Allergies, Adverse Reactions, Alerts Allergy Name [...]
[2019-12-09 12:14] LABS: ABS Lymphocytes 0.8 10^3/ul (1.0-4.8); ABS Monocytes 0.8 10^3/ul (0-0.8); ABS Neutrophils 4.1 10^3/ul (1.5-7.7); Eosinophil % 0.2 %; Hematocrit 36 % (42-52); Hemoglobin 12.3 g/dL (14.0-18.0); Lymphocyte % 14.7 %; Mean Corpuscular HGB Conc 34 g/dL (31-36); Mean Corpuscular Hemoglobin 28 pg (27-31); Mean Corpuscular Volume 83 fL (80-94); Mean Platelet Volume 6.3 fL (7.4-10.4); Platelet Count 236 10^3/uL (150-450); Red Blood Count 4.36 10^6 /uL (4.18-5.48); Red Cell Distribution Width 15 % (10-15); White Blood Count 5.8 10^3/uL (3.5-10.8)
[2019-12-09 12:31] LABS: ALT 14 U/L (7-52); AST 20 U/L (13-39); Albumin 3.3 g/dL (3.2-5.2); Alkaline Phosphatase 54 U/L (34-104); Anion Gap 4 mmol/L (2-11); BUN/Creatinine Ratio 14.8 (8-20); Blood Urea Nitrogen 13 mg/dL (6-24); CO2 Carbon Dioxide 28 mmol/L (22-32); Calcium 9.2 mg/dL (8.6-10.3); Chloride 102 mmol/L (101-111); Creatine Kinase 32 U/L (10-223); EGFR African American 100.8 (>60); EGFR Non-African American 83.3 (>60); Globulin 3.3 g/dL (2-4); Glucose 141 mg/dL (70-100); Magnesium 1.8 mg/dL (1.9-2.7); Potassium 4.2 mmol/L (3.5-5.0); Sodium 134 mmol/L (135-145); Total Protein 6.6 g/dL (6.4-8.9); Troponin I 0.01 ng/mL (<0.03)
[2019-12-09 12:40] LABS: Alcohol < 10 mg/dL (<10)
[2019-12-09 12:55] LABS: TSH (Thyroid Stimulating Horm) 1.81 mcIU/mL (0.34-5.60)
[2019-12-09 13:43] LABS: Urine Appearance Clear; Urine Bilirubin Negative (Negative); Urine Blood Negative (Negative); Urine Color Amber; Urine Glucose Negative (Negative); Urine Ketones Negative (Negative); Urine Nitrite Negative (Negative); Urine Protein Negative (Negative); Urine Specific Gravity 1.019 (1.010-1.030); Urine Urobilinogen Negative (Negative)
[2019-12-09 14:20] LABS: Urine Benzodiazepine Screen None Detected (None Detect); Urine Opiates Screen None Detected (None Detect)
[2019-12-09 17:22] VITALS: BP 173/88
[2019-12-09] MEDS ORDERED: levETIRAcetam TAB* 500 MG PO SCH (21:00)
--- NOTE | 2019-12-09 23:59 | CONS ---
[facility] MEDICINE CONSULTATION REPORT: DATE OF CONSULT: 12/09/19 - EMERGENCY DEPT PRIMARY: Neela Lott NP ATTENDING PHYSICIAN: Dr. Damaso Segal. CONSULTING PHYSICIAN: Dr. Erin Jones (dictated by Neela Lott NP). REASON FOR CONSULT: Near syncope. HISTORY OF PRESENT ILLNESS: Mr. Tong is an 79-year-old male with past medical history significant for cutaneous lupus erythema, orthostatic hypotension, peripheral vascular disease, GERD, T-cell lymphoma, who presented to the emergency room by EMS for near syncopal episode at home. Per the patient , he reports that he woke up this morning. He was feeling in his normal state of health. He was getting around the house. He was getting ready for Physical Therapy to come to his in-home physical therapy session today. He reports that he got everything ready that he needed for physical therapy. He sat in his recliner and then the patient reports he had a period of time that he does not remember the events. Per the , the patient had an episode lasting approximately 25 minutes where she was unresponsive but sitting up in the chair , his face, became pale, he was not answering questions and was incontinent of urine. His physical therapist was there at that time. He took his blood pressure and was noted to be 60/48. Due to the patient's lack of response, EMS was called and the patient reports the next thing he remembers is that his and Physical Therapy telling him that the ambulance was on the way. The patient reports that the last thing he remembers is saying hi to his physical therapist coming in the door. During this episode of unresponsiveness , the patient's reports that he was just staring forward. He was nonverbal. He was yawning occasionally and his right arm was shaking. The patient denies any recent fevers, chills, unintended weight loss, chest pain, or edema. Denies any cough, hemoptysis, shortness of breath. No nausea, vomiting, diarrhea, or abdominal pain. He denies any gross hematuria, dysuria. No focal weakness. He denies any dizziness prior to the episode, no dysphagia , no arthralgias, rashes, lesions, open sores. While in the emergency room, the patient had routine lab work drawn, which is at his baseline. He had a CT of the brain that showed no acute intracranial abnormality and small vessel ischemic disease. He had a chest x-ray that showed no underlying pneumonia, stigmata for obstructive lung disease. Due to the patient's near syncopal episode, Hospital Medicine was asked to see and evaluate him for admission. PAST MEDICAL HISTORY: Significant for cutaneous lupus erythema, orthostatic hypotension, peripheral vascular disease, peripheral artery disease, GERD, T- cell lymphoma, anemia of chronic disease, BPH, osteoporosis, lumbar radiculopathy, chronic steroids for suspected polymyalgia rheumatica, possible seizure, history of hyponatremia. 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 HOME MEDICATIONS: Include: 1. Keppra 500 mg twice daily. 2. Prednisone 5 mg p.o. daily. 3. Viagra half tablet daily. 4. Clopidogrel 75 mg p.o. daily. 5. Finasteride 5 mg p.o. daily. 6. Fludrocortisone 0.1 mg p.o. daily. 7. Omeprazole 20 mg p.o. daily. 8. Sodium 1 g p.o. daily. 9. Potassium half tablet 2 times daily. 10. Magnesium oxide 800 mg p.o. daily. 11. Centrum Silver 1 tablet p.o. daily. 12. Gabapentin 600 mg twice daily. 13. Atorvastatin 40 mg p.o. daily. 14. Oxycodone as needed. ALLERGIES: ALENDRONATE, AZATHIOPRINE, BENAZEPRIL, CELECOXIB, CLINDAMYCIN, GLUCOSAMINE, HYDROCHLOROTHIAZIDE, HYDROXYCHLOROQUINE, METHOTREXATE, MORPHINE, SULFA, TRIAMTERENE, CILOSTAZOL. FAMILY HISTORY: Mother of unknown causes at the age of 85. Dad had CVA and peripheral vascular disease. SOCIAL HISTORY: The patient is a former smoker. He is retired. He does drink 1 to 2 drinks daily. No illicit drug use. Surrogate decision maker in the event he is unable to make his own decisions is his , Corinne. He is a DNR/ DNI. REVIEW OF SYSTEMS: A 14-point review of systems was completed. All pertinent positives were mentioned in the HPI. PHYSICAL EXAM: General: At this time, Mr. Tong is alert and oriented, resting on the stretcher in emergency room. He is in no acute distress. Vital Signs: Blood pressure 160/74, heart rate 53, respirations 15, O2 saturation 100 % on room air, temperature is 97.0. HEENT: Head is atraumatic, normocephalic. Eyes: EOMs are intact. Sclerae anicteric and not pale. Oral mucosa is moist. Neck is supple. Lungs are clear to auscultation bilaterally. No wheezes, rales, or rhonchi. Cardiac: S1, S2. Regular rate and rhythm. No murmurs, rubs, or gallops. Abdomen is soft and nontender. Bowel sounds are present x4. Extremities: He does have a BKA to his right lower leg with prosthetic device in place. There is no clubbing or cyanosis. Neurologic: He is awake, alert, and oriented x3. Speech is clear. Cranial nerves II through XII are grossly intact. Skin is intact. DIAGNOSTIC STUDIES/LAB DATA: WBCs are 5.8, RBC 4.36, hemoglobin 12.3, hematocrit is 36, platelet count is 236. APTT was 27.9. Sodium 134, potassium 4.2, chloride 102, carbon dioxide is 28, anion gap is 4, BUN is 13. Creatinine 0.88. Glucose is 141, lactic acid 1.7, calcium 9.2, magnesium 1.8. Total bilirubin 0.60, ASTs were 20, ALTs were 14, alkaline phosphatase was 54. Ammonia was 35. Total CK was 32. Troponin was 0.01. BNP was 357. TSH was 1.81. Urine was within normal limits and urine tox was also within normal limits. Serum alcohol was less than 10. Keppra level is currently pending. He had a CT of the brain, radiologist's impression: No acute intracranial pathology by CT. Moderate chronic small vessel ischemic disease is likely. There is mild cerebral volume loss. He had a chest x-ray, radiologist's impression: Stigmata of obstructive lung disease. No acute pulmonary or cardiac process is evident. He had an electrocardiogram, which showed sinus bradycardia at a rate of 47 with right bundle branch block. No changes when compared to EKG from 08/18/19. ASSESSMENT AND PLAN: Mr. Tong is an 79-year-old male with past medical history significant for orthostatic hypotension, peripheral vascular disease, peripheral arterial disease, cutaneous lupus erythema, gastroesophageal reflux disease, T-cell lymphoma, osteoporosis, who presented to the emergency room after an episode of unresponsiveness lasting approximately 20 minutes while sitting in a chair. Our recommendations are as follows: Near syncope: The patient had an episode of about 20 minutes of unresponsive, not talking with staring episode with right arm shaking. At that time, he was found to have a blood pressure of 60/48. I suspect this could be related to seizure versus orthostatic hypotension. The patient does have history of seizures and is on Keppra 500 twice daily. I did speak to his primary care doctor, Dr. May Castillo, who has recommended getting a Keppra level and increasing his Keppra to 750 twice daily. At this time, the patient is at his baseline. He has no complaints. He is feeling in his normal state of health and in discussion with Dr. Castillo, we have agreed that the patient is stable for discharge home and can follow up with her in the office next week. I have discussed this with Dr. Segal in the emergency room. He will discharge the patient home. I did discuss with the patient he is to return to the emergency room with any further syncopal episodes, chest pain, shortness of breath, dizziness, weakness on one side or any other concerning symptoms. The patient and his verbalized understanding. At this time, the patient is stable for discharge home. Further discharge instructions will be given by the emergency room and Dr. Segal. TIME SPENT: Time spent on this consultation was 45 minutes, greater than half that time was spent at the bedside reviewing events leading thus far to his hospitalization, performing physical exam, and reviewing my plan of care. I have discussed this with my attending, Dr. Erin Jones; she is in agreement with my plan. NEELA LOTT, [employer] [id number]/[facility] #: [id number] DANA
== END 2019-12-09 17:21 | disposition home or self-care (01) ==
LOC: ED 11:40
DX: R56.9 Unspecified convulsions (principal); N40.0 Benign prostatic hyperplasia without lower urinary tract symptoms; R55 Syncope and collapse; R94.31 Abnormal electrocardiogram [ECG] [EKG]; Z87.891 Personal history of nicotine dependence; Z79.899 Other long term (current) drug therapy
CPT/HCPCS: 36415; 70450; 71046; 80053; 80177; 80307; 80320; 81003; 82140; 82550; 83605; 83735; 83880; 84443; 84484; 85025; 85730; 93005; 99284; A9270-GY; G0480

== ENCOUNTER 2020-01-07 04:57 | Inpatient (IN) | payer MEDICARE ==
[2020-01-07] MEDS ORDERED: fentaNYL* 50 MCG/ML 2 ML VIAL (100 MCG VIAL) IV SLOW PU ONE ×2 (05:19→06:21)
--- NOTE | 2020-01-07 05:24 | ED ---
Abdominal Pain/Male - HPI Summary HPI Summary: 79 y/o M brought in by EMS to [facility] c/o 05/10 epigastric and umbilical pain, abdominal bloating, n/v/d starting 1800 last night. He denies fever. No abdominal surgical hx. Hx umbilical hernia. He states he was pushing his umbilicus then felt and heard it pop. He has never had these symptoms before. Symptoms aggravated by nothing. Symptoms alleviated by nothing. Medications reviewed. His doctor placed him on prednisone of which he started taking 40 mg yesterday. Allergies noted. - History of Current Complaint Chief Complaint: EDAbdPain Stated Complaint: ABD PAIN PER EMS Hx Obtained From: Patient Onset/Duration: Lasting Hours, Still Present Severity Currently: Severe Pain Intensity: 8 Pain Scale Used: 0-10 Numeric Location: Epigastric, Umbilical Aggravating Factor(s): Nothing Alleviating Factor(s): Nothing Associated Signs And Symptoms: Positive: Nausea, Vomiting, Diarrhea, Other - abdominal bloating. Negative: Fever - Allergies/Home Medications Allergies/Adverse Reactions: Allergies Allergy/AdvReac Type Severity Reaction Status Date / Time alendronate sodium Allergy Unknown Verified 01/07/20 04:59 Reaction Details azathioprine Allergy Unknown Verified 01/07/20 04:59 Reaction Details benazepril [From Lotensin] Allergy Unknown Verified 01/07/20 04:59 Reaction Details celecoxib Allergy Hives Verified 01/07/20 04:59 cilostazol Allergy Unknown Verified 01/07/20 04:59 Reaction Details clindamycin Allergy Unknown Verified 01/07/20 04:59 Reaction Details glucosamine Allergy Unknown Verified 01/07/20 04:59 Reaction Details hydrochlorothiazide Allergy Unknown Verified 01/07/20 04:59 [From Dyazide] Reaction Details hydroxychloroquine Allergy See Comment Verified 01/07/20 04:59 methotrexate Allergy See Comment Verified 01/07/20 04:59 morphine Allergy See Comment Verified 01/07/20 04:59 Sulfa (Sulfonamide Allergy See Comment Verified 01/07/20 04:59 Antibiotics) triamterene [From Dyazide] Allergy Unknown Verified 01/07/20 04:59 Reaction Details Home Medications: Home Medications Finasteride TAB* [Proscar TAB*] 5 mg PO DAILY 04/04/16 [History Confirmed ] Gabapentin 600 mg PO .NOON 03/25/19 [History Confirmed 12/09/19] Multivitamin [Multivitamins] 1 cap PO DAILY 03/25/19 [History Confirmed 12/09/19 ] Atorvastatin Calcium [Lipitor] 40 mg PO DAILY 06/02/19 [History Confirmed ] Clopidogrel TAB* [Plavix TAB*] 75 mg PO DAILY 06/02/19 [History Confirmed ] Fludrocortisone Acetate TAB* [Florinef TAB*] 1 mg PO DAILY 06/02/19 [History Confirmed 12/09/19] Omeprazole 20 mg PO DAILY 06/02/19 [History Confirmed 12/09/19] Sildenafil (PULMONARY)(NF) [Revatio (NF)] 10 tab PO DAILY 06/02/19 [History Confirmed 12/09/19] Sodium Chloride TAB* 1 gm PO DAILY 06/02/19 [History Confirmed 12/09/19] levETIRAcetam TAB* [Keppra TAB*] 500 mg PO BID 06/02/19 [History Confirmed 12/08] Oxycodone HCl 5 mg PO Q4H PRN 08/18/19 [History Confirmed 12/09/19] Potassium Chlor TAB* [Potassium Chlor TAB 20 MEQ*] 10 meq PO BID 08/18/19 [ History Confirmed 12/09/19] predniSONE 10 mg TAB [Deltasone 10 MG TAB*] 5 mg PO DAILY 08/18/19 [History Confirmed 12/09/19] Gabapentin TAB(NF) [Neurontin 600 mg TAB(NF)] 1,200 mg PO QPM 12/09/19 [History Confirmed 12/09/19] Magnesium Oxide TAB* [MagOx 400 TAB*] 800 mg PO BID 12/09/19 [History Confirmed 12/09/19] levETIRAcetam TAB* [Keppra TAB*] 250 mg PO BID #30 tab 12/09/19 [Rx] PMH/Surg Hx/FS Hx/Imm Hx Endocrine/Hematology History: Denies: Hx Diabetes, Hx Anemia Cardiovascular History: Reports: Hx Hypotension - orthostatic, Hx Hypertension, Hx Peripheral Vascular Disease - 09/13: now on [place] Denies: Hx Angina, Hx Coronary Artery Disease, Hx Hypercholesterolemia, Hx Myocardial Infarction, Hx Pacemaker/ICD, Hx Valvular Heart Disease, Other Cardiovascular Problems/Disorders Respiratory History: Reports: Hx Seasonal Allergies, Other Respiratory Problems/ Disorders - IS BEING TREATED FOR SYSTEMIC FUNGAL INFECTION Denies: Hx Asthma, Hx Chronic Obstructive Pulmonary Disease (COPD) GI History: Reports: Hx Hiatal Hernia Denies: Hx Jaundice History: Reports: Hx Benign Prostatic Hyperplasia Denies: Hx Renal Disease - left kidney damage in 1960s Musculoskeletal History: Reports: Hx Arthritis - polymyalgia rheumatica, Hx Rheumatoid Arthritis, Hx Back Problems, Hx Osteoporosis Sensory History: Reports: Hx Cataracts, Hx Contacts or Glasses, Hx Glaucoma Denies: Hx Legally Blind, Hx Deafness, Hx Hearing Aid Opthamlomology History: Reports: Hx Cataracts, Hx Contacts or Glasses, Hx Glaucoma Denies: Hx Legally Blind Neurological History: Reports: Hx Seizures, Other Neuro Impairments/Disorders - syncope Denies: Hx Headaches Psychiatric History: Denies: Hx Panic Disorder - Surgical History Surgery Procedure, Year, and Place: rotator cuff repair bilat; varicele 20YRS + ; CATARACTS BILAT. Torn ligament in left elbow- over 20yrs ago. Right BKA. tonsilectomy Hx Anesthesia Reactions: No Infectious Disease History: No Infectious Disease History: Denies: Hx Clostridium Difficile, Hx Hepatitis, Hx Human Immunodeficiency Virus (HIV), Hx of Known/Suspected MRSA, Hx Shingles, Hx Tuberculosis, Hx Known/ Suspected VRE, Hx Known/Suspected VRSA, History Other Infectious Disease, Traveled Outside the [place] in Last 30 Days - Family History Known Family History: Positive: Cardiac Disease Negative: Diabetes - Social History Alcohol Use: Occasionally Hx Substance Use: No Substance Use Type: Reports: None Hx Tobacco Use: Yes Smoking Status (MU): Former Smoker Type: Cigarettes Amount Used/How Often: 1-2 packs in week Have You Smoked in the Last Year: No Review of Systems - ROS Summary Review of Systems Summary: Home Medications Medication Instructions Recorded Confirmed Type Finasteride TAB* [Proscar TAB*] 5 mg PO DAILY 04/04/16 12/09/19 History Gabapentin 600 mg PO .NOON 03/25/19 12/09/19 History Multivitamin [Multivitamins] 1 cap PO DAILY 03/25/19 12/09/19 History Atorvastatin Calcium [Lipitor] 40 mg PO DAILY 06/02/19 12/09/19 History Clopidogrel TAB* [Plavix TAB*] 75 mg PO DAILY 06/02/19 12/09/19 History Fludrocortisone Acetate TAB* 1 mg PO DAILY 06/02/19 12/09/19 History [Florinef TAB*] Omeprazole 20 mg PO DAILY 06/02/19 12/09/19 History Sildenafil (PULMONARY)(NF) 10 tab PO DAILY 06/02/19 12/09/19 History [Revatio (NF)] Sodium Chloride TAB* 1 gm PO DAILY 06/02/19 12/09/19 History levETIRAcetam TAB* [Keppra TAB*] 500 mg PO BID 06/02/19 12/09/19 History Oxycodone HCl 5 mg PO Q4H PRN 08/18/19 12/09/19 History Potassium Chlor TAB* [Potassium 10 meq PO BID 08/18/19 12/09/19 History Chlor TAB 20 MEQ*] predniSONE 10 mg TAB [Deltasone 10 5 mg PO DAILY 08/18/19 12/09/19 History MG TAB*] Gabapentin TAB(NF) [Neurontin 600 1,200 mg PO QPM 12/09/19 12/09/19 History mg TAB(NF)] Magnesium Oxide TAB* [MagOx 400 800 mg PO BID 12/09/19 12/09/19 History TAB*] levETIRAcetam TAB* [Keppra TAB*] 250 mg PO BID #30 tab 12/09/19 Rx Negative: Fever Positive: Abdominal Pain, Vomiting, Diarrhea, Nausea, Other - abdominal bloating All Other Systems Reviewed And Are Negative: Yes Physical Exam - Summary Physical Exam Summary: General: Well-developed, Well-nourished MALE. He appears in moderate discomfort. HEENT: Normocephalic, Atraumatic. Eyes: Conjuctiva normal, PERRL. Oropharynx: Clear, mucous membranes moist, (-) exudates. Neck: Soft, FROM, (-) lymphadenopathy, (-) thyromegaly, (-) JVD. Cardiovascular: Normal sinus rhythm, (-) murmur. Lungs: Clear to auscultation bilaterally (-) wheezes, (-) rales, (-) rhonchi. Abdomen: Soft, epigastric and umbilical tenderness, non-distended, (-) organomegaly, normal bowel sounds. Reducible umbilical hernia Back: (-) CVA tenderness Extremities: No edema. Skin: Warm, dry, (-) rash. Neuro: Alert and oriented x3, moves all extremities equally. No ataxia. No gait disturbance. No sensory deficit. Normal strength, normal sensation. Psychiatric: Mood normal, affect normal. Triage Information Reviewed: Yes Vital Signs On Initial Exam: Initial Vitals Temp Pulse Resp BP Pulse Ox 97.8 F 58 16 188/98 99 01/07/20 05:00 01/07/20 05:00 01/07/20 05:00 01/07/20 05:00 01/07/20 05:00 Vital Signs Reviewed: Yes Procedures - Sedation Patient Received Moderate/Deep Sedation with Procedure: No Diagnostics - Vital Signs Vital Signs Temp Pulse Resp BP Pulse Ox 01/07/20 05:00 97.8 F 58 16 188/98 99 - Laboratory Result Diagrams: 01/07/20 05:39 01/07/20 05:39 Lab Statement: Any lab studies that have been ordered have been reviewed, and results considered in the medical decision making process. Abdominal Pain Male Course/Dx - Course Course Of Treatment: 79-year-old male presents from home to the emergency room by ambulance with severe abdominal pain. He states he started with abdominal pain, vomiting and diarrhea all overnight. No fevers. No known ill contacts. No cough. No chest pain or shortness of breath. Patient's abdomen is soft with good bowel sounds. Umbilical hernia is flat and reducible. He does appear to be in moderate discomfort. Given fentanyl for pain. Some relief. Dose repeated. Patient ordered for CT abdomen and pelvis. Signed out at change of shift. - Diagnoses Provider Diagnoses: Abdominal pain, Vomiting and diarrhea Discharge ED - Sign-Out/Discharge Documenting (check all that apply): Sign-Out Patient Signing out patient TO: Austyn Crook - Discharge Plan Condition: Stable Referrals: May Castillo MD [Primary Care Provider] - - Billing Disposition and Condition Condition: STABLE - Attestation Statements Document Initiated by Scribe: Yes Documenting Scribe: Sofiya Owusu Provider For Whom Teganibe is Documenting (Include Credential): Lou Klein MD Scribe Attestation: Sofiya Keller, scribed for Lou Klein MD on 01/07/20 at 0650. Scribe Documentation Reviewed: Yes Provider Attestation: The documentation as recorded by the scribeSofiya accurately reflects the service I personally performed and the decisions made by me, Lou Klein MD Status of Scribe Document: Viewed
[2020-01-07 05:55] LABS: ABS Lymphocytes 1.5 10^3/ul (1.0-4.8); ABS Monocytes 1.5 10^3/ul (0-0.8); ABS Neutrophils 10.1 10^3/ul (1.5-7.7); ABS Nucleated RBC 0.1 10^3/ul; Hematocrit 40 % (42-52); Hemoglobin 13.6 g/dL (14.0-18.0); Lymphocyte % 11.1 %; Mean Corpuscular HGB Conc 34 g/dL (31-36); Mean Corpuscular Hemoglobin 28 pg (27-31); Mean Corpuscular Volume 82 fL (80-94); Mean Platelet Volume 6.6 fL (7.4-10.4); Nucleated Red Blood Cells % 0.4; Platelet Count 352 10^3/uL (150-450); Red Blood Count 4.88 10^6 /uL (4.18-5.48); Red Cell Distribution Width 16 % (10-15); White Blood Count 13.1 10^3/uL (3.5-10.8)
[2020-01-07 06:05] LABS: Activated Partial Thrombo Time 25.9 seconds (26.0-38.0); INR 0.96 (0.82-1.09)
[2020-01-07 06:10] LABS: Albumin 3.6 g/dL (3.2-5.2); Albumin/Globulin Ratio 0.9 (1-3); BUN/Creatinine Ratio 23.2 (8-20); C Reactive Protein 9.19 mg/L (<8.01); Calcium 9.1 mg/dL (8.6-10.3); EGFR African American 133.5 (>60); EGFR Non-African American 110.3 (>60); Globulin 3.9 g/dL (2-4); Potassium 3.1 mmol/L (3.5-5.0); Total Bilirubin 0.8 mg/dL (0.2-1.0); Total Protein 7.5 g/dL (6.4-8.9)
[2020-01-07] MEDS ORDERED: Iohexol 300* (CONTRAST) 10 ML SDV IV ONE (06:28)
[2020-01-07 06:32] LABS: Urine Appearance Clear; Urine Bilirubin Negative (Negative); Urine Blood Negative (Negative); Urine Color Yellow; Urine Glucose Negative (Negative); Urine Ketones Trace (Negative); Urine Nitrite Negative (Negative); Urine Protein Negative (Negative); Urine Specific Gravity 1.012 (1.010-1.030); Urine Urobilinogen Negative (Negative)
--- OUTSIDE RECORDS SUMMARY | 2020-01-07 06:37 | XMS REPORT ---
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- Ingrahm ulcer of ulcer of [id number] other part other part of left of left foot foot limited to limited to breakdown breakdown of skin of skin Peripheral Peripheral Diagnosis Active Adry vascular vascular 10-01 Ingrahm disease, disease, [id number] unspecified unspecified 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 huslia huslia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 without angina angina pectoris pectoris Essential Essential Diagnosis Active Adry (primary) (primary) 1 Ingrahm hypertensio hypertensio [id number] n n Epilepsy, Epilepsy, Diagnosis Active Adry unspecified unspecified 10-01 Ingrahm , not , not [id number] intractable intractable , without , without status status epilepticus epilepticus Enterocolit Enterocolit Diagnosis Active 2018-10 Adry is due to is due to 0-13 Ingrahm Clostridium Clostridium [id number] difficile, difficile, not not specified specified as as recurrent recurrent Raynaud's Raynaud's Diagnosis Active Adry syndrome syndrome Ingrahm without without [id number] gangrene gangrene 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, lymphoma, 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 unspecified unspecified , , unspecified unspecified site site 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) [id number] (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, seizures, not not intractable intractable , without , without status status epilepticus epilepticus Radiculopat Radiculopat Diagnosis Active Adry hy, lumbar hy, lumbar Ingrahm region region [id number] 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 [id number] [facility] 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 [id number] diseases diseases classified classified elsewhere elsewhere Benign Benign Diagnosis Active Adry prostatic prostatic Ingrahm hyperplasia hyperplasia [id number] without without lower lower urinary urinary tract tract symptoms symptoms 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 [id number] unspecified unspecified sites in sites in spine spine 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, psoriasis, [id number] unspecified unspecified Other Other Diagnosis Active Adry dysphagia dysphagia Ingrahm [id number] 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 [id number] n n 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 s with s with [id number] current current pathologica pathologica l fracture, l fracture, vertebra(e) vertebra(e) , , subsequent subsequent encounter encounter for for fracture fracture with with routine routine healing 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 Adry (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) (current) Ingrahm use of use of [id number] antithrombo antithrombo tics/antipl tics/antipl atelets atelets halfway 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 Adry (current) (current) Ingrahm use of use of [id number] antibiotics antibiotics halfway 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 Adry (current) (current) Ingrahm use of use of [id number] systemic systemic steroids steroids geological science teacher halfway Diagnosis Active Adry (current) (current) Ingrahm use of use of [id number] opiate opiate analgesic analgesic 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 [id number] below knee below knee 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 [id number] Pain frequent Pain Mgmt Resolve 2018-2019-07-18 Grace pain d 0-01 13:00:00 (Pennie) 10:30: Mondragon 00 [id number] Cardio edema Cardiovasc Resolve 2018-102019-07-24 Grace ular d 0-01 09:00:00 (Pennie) 10:30: Mondragon [id number] Respiratory dyspnea Respirator Resolve 2018-102019-07-24 Grace present y d 0-01 09:00:00 (Pennie) 10:30: Mondragon [id number] Endo/David anti-coagul Endo/David Resolve 2018-102019-07-18 Grace ation d 0-01 13:00:00 (Pennie) therapy 10:30: [id number] Integument skin Integument Resolve 2018-102019-07-24 Grace integrity d 0-01 09:00:00 (Pennie) risk 10:30: Mondragon [id number] Elimination urinary Eliminatio Resolve 2018-102019-07-24 Grace incontinenc n d 0-01 09:00:00 (Pennie) e 10:30: [id number] Neuro confusion Neuro/Emot Resolve 2018-102019-09-26 Grace present ion d 0-01 10:25:00 (Pennie) 10:30: [id number] Neuro depressive Neuro/Emot Resolve 2018-102019-09-26 Grace feelings ion d 0-01 10:25:00 (Pennie) present 10:30: Mondragon [id number] Neuro impaired Neuro/Emot Resolve 2018-102019-09-26 Grace decision-ma ion d 0-01 10:25:00 (Pennie) guanako 10:30: [id number] Neuro memory Neuro/Emot Resolve 2018-102019-09-26 Grace deficit ion d 0-01 10:25:00 (Pennie) needing 10:30: Mondragon supervision 00 [id number] Activity ADL Activity Resolve 2018-102019-07-24 Grace assistance d 0-01 09:00:00 (Pennie) required 10:30: Mondragon 00 [id number] Activity self-care Activity Resolve 2018-102019-07-24 Grace deficit d 0-01 09:00:00 (Pennie) 10:30: Mondragon [id number] Safety fall risk Safety Resolve 2018-102019-10-03 Grace factor d 0-01 09:30:00 (Pennie) present 10:30: Mondragon 00 [id number] Safety cannot be Safety Resolve 2018-102019-10-03 Grace left alone d 0-01 09:30:00 (Pennie) 10:30: Mondragon 00 [id number] Safety risk for Safety Resolve 2018-102019-10-03 Grace hospitaliza d 0-01 09:30:00 (Pennie) tion 10:30: Mondragon 00 [id number] Medication oral med Meds Resolve 2018-102019-07-18 Grace assistance d 0-01 13:00:00 (Pennie) required 10:30: Mondragon 00 [id number] Musculoskel transfer Musculoske Resolve 2018-102019-07-24 Grace etal assistance letal d 0-01 09:00:00 (Pennie) required 10:30: Mondragon 00 [id number] Musculoskel requires Musculoske Resolve 2018-102019-07-24 Grace etal human letal d 0-01 09:00:00 (Pennie) assist to 10:30: Mondragon leave home 00 [id number] Nutrition nutritional Nutrition Resolve 2018-102019-07-18 Bimal restriction d 0-02 13:00:00 Anguish s 13:46: [id number] 00 Safety structural Safety Resolve 2018-102019-07-24 Bimal barriers d 0-02 09:00:00 Anguish present 13:46: [id number] 00 Safety can be left Safety Resolve 2018-102019-10-03 Bimal alone for d 0-02 09:30:00 Anguish only short 13:46: [id number] periods 00 Balance/End balance/compensation coordinator PT/OT: Resolve 2018-102019-12-18 Bimal urance rdination Balance/En d 0-02 10:30:00 Anguish deficit durance 13:46: [id number] 00 Balance/End endurance PT/OT: Resolve 2018-102019-12-18 Bimal urance deficit Balance/En d 0-02 10:30:00 Anguish durance 13:46: [id number] 00 Equipment prosthesis PT/OT: Resolve 2018-102019-12-18 Bimal Mgmt mgmt Equipment d 0-02 10:30:00 Anguish deficit Mgmt 13:46: [id number] 00 Gait/Locomo gait PT/OT: Resolve 2018-102019-12-18 Bimal tion deficit Gait/Locom d 0-02 10:30:00 Anguish problems otion 13:46: [id number] 00 Elimination bowel Eliminatio Resolve 2018-102019-07-24 Adry incontinenc n d 0-15 09:00:00 Ingrahm e 10:00: [id number] 00 Gait/Locomo gait PT/OT: Resolve 2018-102019-12-18 Bimal tion assistive Gait/Locom d 0-18 10:30:00 Anguish problems device otion 10:20: [id number] present 00 Nutrition nutritional Nutrition Resolve 2018-102019-07-24 Adry restriction d 0-22 09:00:00 Ingrahm s 10:00: [id number] 00 Nutrition nutritional Nutrition Resolve 2018-102019-08-14 Adry restriction d 0-29 09:59:00 Ingrahm s 08:46: [id number] 00 Integument skin Integument Active 2018-10 Velvet integrity 1-23 Carrier RN risk 12:00: 00 Medication oral med Meds Resolve 2018-102019-09-02 Velvet assistance d 1-23 09:53:00 Carrier RN required 12:00: 00 Musculoskel transfer Musculoske Active 2018-10 Velvet etal assistance letal 1-23 Carrier RN required 12:00: 00 Musculoskel requires Musculoske Active 2018- Velvet etal human letal 1-23 Carrier RN assist to 12:00: leave home 00 Integument pressure Integument Resolve 2018-102019-10-03 Adry ulcer d 2-03 09:30:00 Ingrahm present 09:53: [id number] 00 Integument surgical Integument Resolve 2018-102019-10-03 Adry wound d 2-03 09:30:00 Ingrahm present 09:53: [id number] 00 Integument stasis Integument Resolve 2018-102019-10-03 Maylin ulcer d 2-03 09:30:00 Jefferson present 09:53: [id number] 00 Bed transfer PT/OT: Bed Resolve 2018-102019-12-18 Bimal Mobility/Tr deficit: Mobility/T d 2-03 10:30:00 Anguish ansfer standing ransfer 11:50: [id number] pivot 00 Bed transfer PT/OT: Bed Resolve 2018-102019-12-18 Bimal Mobility/Tr deficit: Mobility/T d 2 10:30:00 Jose De Jesus worthy toilet/comm ransfer 11:50: [id number] 00 Bed transfer PT/OT: Bed Resolve 2018-102019-12-18 Bimal Mobility/Tr deficit: Mobility/T d 2 10:30:00 Jose De Jesus worthy shower/tub ransfer 11:50: [id number] 00 Activity self-care Activity Resolve 2019-10-17 Adry deficit d 10-03 10:00:00 Ingrahm 09:30: [id number] 00 Activity ADL Activity Resolve 2019-10-17 Bimal assistance d 10-07 10:00:00 Anguish required 10:38: [id number] 00 Safety risk for Safety Resolve 2019-12-18 Bimal hospitaliza d 10-07 10:30:00 Anguish tion 10:38: [id number] 00 Safety can be left Safety Resolve 2019-12-18 Adry alone for d 10-10 10:30:00 Ingrahm only short 11:20: [id number] periods 00 Activity ADL Activity Active Maylin assistance 10-24 Jefferson required 09:40: [id number] 00 Activity self-care Activity Active Adry deficit 10-24 Ingrahm 09:40: [id number] 00 Safety fall risk Safety Resolve 2019-12-18 Adry factor d 10-24 10:30:00 Ingrahm present 09:40: [id number] 00 Allergies, Adverse Reactions, Alerts Allergy Name [...] Unknown Reaction Liliya Beam Ingredient Unknown 02-28 Medications Ordered Filled Start Stop Current Ordering Indication Dosage Frequency Signature Comments Components Medication Medication Date Date Medication? Clinician (SIG) Name Name clopidogrel clopidogrel 2018-10 No Castillo Unknown Unknown 75 mg 75 mg 0 MD,May tablet tablet levETIRAcet levETIRAcet 2018-10 No Castillo Unknown Unknown am 500 mg am 500 mg MD,May tablet tablet demeclocycl demeclocycl No Castillo Unknown Unknown ine 150 mg ine 150 mg MD,Mya tablet tablet predniSONE predniSONE 2018-10 No Castillo Unknown Unknown 5 mg tablet 5 mg tablet 0 MD,May gabapentin gabapentin 2018-10 No Castillo Unknown Unknown 600 mg 600 mg 08-23 MD,May tablet tablet latanoprost latanoprost 2018-10 No Castillo Unknown Unknown (PF) 0.005 (PF) 0.005 10-23 MD,May % eye drops % eye drops oxyCODONE 5 oxyCODONE 5 2018-10 No Castillo Unknown Unknown mg tablet mg tablet 10-23 MD,May albuterol albuterol 2018-10 No Castillo Unknown Unknown sulfate 2.5 sulfate 2.5 10-23 MD,May mg/3 mL mg/3 mL (0.083 %) (0.083 %) solution solution for for nebulizatio nebulizatio n n sodium sodium 2018-10 No Castillo Unknown Unknown chloride 1 chloride 1 08-23 ,May gram tablet gram tablet acetaminoph acetaminoph 2018-10 No Castillo Unknown Unknown en 325 mg en 325 mg 10-23 MD,May capsule capsule sildenafil sildenafil No Castillo Unknown Unknown (pulmonary (pulmonary ,May hypertensio hypertensio n) 20 mg n) 20 mg tablet tablet fludrocorti fludrocorti 2018-10 No Castillo Unknown Unknown sone 0.1 mg sone 0.1 mg MD,May tablet tablet atorvastati atorvastati 2018-10 No [...] mg tablet 5 mg tablet 0- MD,May furosemide furosemide No Castillo Unknown Unknown 20 mg 20 mg MD,May tablet tablet risedronate risedronate No Castillo Unknown Unknown 35 mg 35 mg MD,May tablet tablet tamsulosin tamsulosin No Castillo Unknown Unknown 0.4 mg 0.4 mg MD,May capsule capsule sildenafil sildenafil 2018-10 No Castillo Unknown Unknown (pulmonary (pulmonary 0- MD,May hypertensio hypertensio n) 20 mg n) 20 mg tablet tablet magnesium magnesium 2018-10- No Castillo Unknown Unknown 250 mg (as 250 mg (as 0-10 10- MD,May magnesium magnesium oxide) oxide) tablet tablet potassium potassium 2018-10- No Castillo Unknown Unknown chloride ER chloride ER 0-15 08- MD,May 20 mEq 20 mEq tablet,exte tablet,exte nded nded release(par release(par t/cryst) t/cryst) vancomycin vancomycin 2018-10- No Castillo Unknown Unknown 125 mg 125 mg 0- MD,May capsule capsule magnesium magnesium 2018-10 No [...] Castillo Unknown Unknown hyclate 100 hyclate 100 10-23- MD,May mg capsule mg capsule sodium sodium 2018-10 No Castillo Unknown Unknown chloride 1 chloride 1 10-23 MD,May gram tablet gram tablet gabapentin gabapentin 2018-10 No Castillo Unknown Unknown 600 mg 600 mg 10-23 MD,May tablet tablet levETIRAcet levETIRAcet Yes Castillo Unknown Unknown am 250 mg am 250 mg - MD,May tablet tablet Vital Signs Vital Name Observation Time Observation Value Comments SYSTOLIC mm[Hg] 2019-12-18 18:10:57 100 mm[Hg] mm[Hg] Method: Sit SYSTOLIC mm[Hg] 2019-07-06 18:08:12 130 mm[Hg] mm[Hg] Method: Stand DIASTOLIC mm[Hg] 2019-12-18 18:10:57 70 mm[Hg] mm[Hg] Method: Sit DIASTOLIC mm[Hg] 2019-07-06 18:08:12 90 mm[Hg] mm[Hg] Method: Stand PULSE 2019-12-18 18:10:57 60 /min /min RESP RATE 2019-12-10 18:10:49 16 /min /min TEMP 2019-12-18 18:10:57 98.7 [degF] Procedures This patient has no known procedures. Results This patient has no known results.
--- OUTSIDE RECORDS SUMMARY | 2020-01-07 06:37 | XMS REPORT ---
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, disease, [id number] unspecified unspecified 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 Essential Essential Diagnosis Active Adry (primary) (primary) 1 Ingrahm hypertensio hypertensio [id number] n n Epilepsy, Epilepsy, Diagnosis Active Adry unspecified unspecified 10-01 Ingrahm , not , not [id number] intractable intractable , without , without status status epilepticus epilepticus Enterocolit Enterocolit Diagnosis Active 2018-10 Adry is due to is due to 0-13 Ingrahm Clostridium Clostridium [id number] difficile, difficile, not not specified specified as as recurrent recurrent Raynaud's Raynaud's Diagnosis Active Adry syndrome syndrome Ingrahm without without [id number] gangrene gangrene 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, lymphoma, 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 unspecified unspecified , , unspecified unspecified site site 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) [id number] (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, seizures, not not intractable intractable , without , without status status epilepticus epilepticus Radiculopat Radiculopat Diagnosis Active Adry hy, lumbar hy, lumbar Ingrahm region region [id number] 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 [id number] [facility] 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 [id number] diseases diseases classified classified elsewhere elsewhere Benign Benign Diagnosis Active Adry prostatic prostatic Ingrahm hyperplasia hyperplasia [id number] without without lower lower urinary urinary tract tract symptoms symptoms 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 [id number] unspecified unspecified sites in sites in spine spine 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, psoriasis, [id number] unspecified unspecified Other Other Diagnosis Active Adry dysphagia dysphagia Ingrahm [id number] 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 [id number] n n 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 s with s with [id number] current current pathologica pathologica l fracture, l fracture, vertebra(e) vertebra(e) , , subsequent subsequent encounter encounter for for fracture fracture with with routine routine healing healing 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 Active Adry (current) (current) Ingrahm use of use of [id number] antithrombo antithrombo tics/antipl tics/antipl atelets atelets detention 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 Diagnosis Active Adry (current) (current) Ingrahm use of use of [id number] antibiotics antibiotics detention 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 Diagnosis Active Adry (current) (current) Ingrahm use of use of [id number] systemic systemic steroids steroids 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 detention Diagnosis Active Adry (current) (current) Ingrahm use of use of [id number] opiate opiate analgesic analgesic 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 [id number] below knee below knee 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 [id number] Pain frequent Pain Mgmt Resolve 2018-2019-07-18 Grace pain d 0-01 13:00:00 (Pennie) 10:30: Mondragon 00 [id number] Cardio edema Cardiovasc Resolve 2018-102019-07-24 Grace ular d 0-01 09:00:00 (Pennie) 10:30: Mondragon [id number] Respiratory dyspnea Respirator Resolve 2018-102019-07-24 Grace present y d 0-01 09:00:00 (Pennie) 10:30: Mondragon [id number] Endo/David anti-coagul Endo/David Resolve 2018-102019-07-18 Grace ation d 0-01 13:00:00 (Pennie) therapy 10:30: [id number] Integument skin Integument Resolve 2018-102019-07-24 Grcae integrity d 0-01 09:00:00 (Pennie) risk 10:30: Mondragon [id number] Elimination urinary Eliminatio Resolve 2018-102019-07-24 Grace incontinenc n d 0-01 09:00:00 (Pennie) e 10:30: [id number] Neuro confusion Neuro/Emot Resolve 2018-102019-09-26 Grace present ion d 0-01 10:25:00 (Pennie) 10:30: [id number] Neuro depressive Neuro/Emot Resolve 2018-102019-09-26 Grace feelings ion d 0-01 10:25:00 (Pennie) present 10:30: Mondragon [id number] Neuro impaired Neuro/Emot Resolve 2018-102019-09-26 Grace decision-ma ion d 0-01 10:25:00 (Pennie) guanako 10:30: [id number] Neuro memory Neuro/Emot Resolve 2018-102019-09-26 Grace deficit ion d 0-01 10:25:00 (Pennie) needing 10:30: Mondragon supervision 00 [id number] Activity ADL Activity Resolve 2018-102019-07-24 Grace assistance d 0-01 09:00:00 (Pennie) required 10:30: Mondragon 00 [id number] Activity self-care Activity Resolve 2018-102019-07-24 Grace deficit d 0-01 09:00:00 (Pennie) 10:30: Mondragon [id number] Safety fall risk Safety Resolve 2018-102019-10-03 Grace factor d 0-01 09:30:00 (Pennie) present 10:30: Mondragon 00 [id number] Safety cannot be Safety Resolve 2018-102019-10-03 Grace left alone d 0-01 09:30:00 (Pennie) 10:30: Mondragon 00 [id number] Safety risk for Safety Resolve 2018-102019-10-03 Grace hospitaliza d 0-01 09:30:00 (Pennie) tion 10:30: Mondragon 00 [id number] Medication oral med Meds Resolve 2018-102019-07-18 Graec assistance d 0-01 13:00:00 (Pennie) required 10:30: Mondragon 00 [id number] Musculoskel transfer Musculoske Resolve 2018-102019-07-24 Grace etal assistance letal d 0-01 09:00:00 (Pennie) required 10:30: Mondragon 00 [id number] Musculoskel requires Musculoske Resolve 2018-102019-07-24 Grace etal human letal d 0-01 09:00:00 (Pennie) assist to 10:30: Mondragon leave home 00 [id number] Nutrition nutritional Nutrition Resolve 2018-102019-07-18 Bimal restriction d 0-02 13:00:00 Anguish s 13:46: [id number] 00 Safety structural Safety Resolve 2018-102019-07-24 Bimal barriers d 0-02 09:00:00 Anguish present 13:46: [id number] 00 Safety can be left Safety Resolve 2018-102019-10-03 Bimal alone for d 0-02 09:30:00 Anguish only short 13:46: [id number] periods 00 Balance/End balance/magnetic resonance imaging coordinator PT/OT: Resolve 2018-102019-12-18 Bimal urance rdination Balance/En d 0-02 10:30:00 Anguish deficit durance 13:46: [id number] 00 Balance/End endurance PT/OT: Resolve 2018-102019-12-18 Bimal urance deficit Balance/En d 0-02 10:30:00 Anguish durance 13:46: [id number] 00 Equipment prosthesis PT/OT: Resolve 2018-102019-12-18 Bimal Mgmt mgmt Equipment d 0-02 10:30:00 Anguish deficit Mgmt 13:46: [id number] 00 Gait/Locomo gait PT/OT: Resolve 2018-102019-12-18 Bimal tion deficit Gait/Locom d 0-02 10:30:00 Anguish problems otion 13:46: [id number] 00 Elimination bowel Eliminatio Resolve 2018-102019-07-24 Adry incontinenc n d 0-15 09:00:00 Ingrahm e 10:00: [id number] 00 Gait/Locomo gait PT/OT: Resolve 2018-102019-12-18 Bimal tion assistive Gait/Locom d 0-18 10:30:00 Anguish problems device otion 10:20: [id number] present 00 Nutrition nutritional Nutrition Resolve 2018-102019-07-24 Adry restriction d 0-22 09:00:00 Ingrahm s 10:00: [id number] 00 Nutrition nutritional Nutrition Resolve 2018-102019-08-14 Adry restriction d 0-29 09:59:00 Ingrahm s 08:46: [id number] 00 Integument skin Integument Active 2018-10 Velvet [...] ulcer d 2-03 09:30:00 Ingrahm present 09:53: [id number] 00 Integument surgical Integument Resolve 2018-102019-10-03 Adry wound d 2-03 09:30:00 Ingrahm present 09:53: [id number] 00 Integument stasis Integument Resolve 2018-102019-10-03 Maylin ulcer d 2-03 09:30:00 Jefferson present 09:53: [id number] 00 Bed transfer PT/OT: Bed Resolve 2018-102019-12-18 Bimal Mobility/Tr deficit: Mobility/T d 2-03 10:30:00 Anguish ansfer standing ransfer 11:50: [id number] pivot 00 Bed transfer PT/OT: Bed Resolve 2018-102019-12-18 Bimal Mobility/Tr deficit: Mobility/T d 2 10:30:00 Jose De Jesus worthy toilet/comm ransfer 11:50: [id number] ode 00 Bed transfer PT/OT: Bed Resolve 2018-102019-12-18 Bimal Mobility/Tr deficit: Mobility/T d 2 10:30:00 Jose De Jesus worthy shower/tub ransfer 11:50: [id number] 00 Activity self-care Activity Resolve 2019-10-17 Adry deficit d 10-03 10:00:00 Ingrahm 09:30: [id number] 00 Activity ADL Activity Resolve 2019-10-17 Bimal assistance d 10-07 10:00:00 Anguish required 10:38: [id number] 00 Safety risk for Safety Resolve 2019-12-18 Bimal hospitaliza d 10-07 10:30:00 Anguish tion 10:38: [id number] 00 Safety can be left Safety Resolve 2019-12-18 Adry alone for d 10-10 10:30:00 Ingrahm only short 11:20: [id number] periods 00 Activity ADL Activity Active Maylin assistance 10-24 Jefferson required 09:40: [id number] 00 Activity self-care Activity Active Adry deficit 10-24 Ingrahm 09:40: [id number] 00 Safety fall risk Safety Resolve 2019-12-18 Adry factor d 10-24 10:30:00 Ingrahm present 09:40: [id number] 00 Allergies, Adverse Reactions, Alerts Allergy Name [...]
--- OUTSIDE RECORDS SUMMARY | 2020-01-07 06:37 | XMS REPORT ---
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, disease, [id number] unspecified unspecified 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 [place]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 without angina angina pectoris pectoris Essential Essential Diagnosis Active Adry (primary) (primary) 1 Ingrahm hypertensio hypertensio [id number] n n Epilepsy, Epilepsy, Diagnosis Active Adry unspecified unspecified 10-01 Ingrahm , not , not [id number] intractable intractable , without , without status status epilepticus epilepticus Enterocolit Enterocolit Diagnosis Active 2018-10 Adry is due to is due to 0-13 Ingrahm Clostridium Clostridium [id number] difficile, difficile, not not specified specified as as recurrent recurrent Raynaud's Raynaud's Diagnosis Active Adry syndrome syndrome Ingrahm without without [id number] gangrene gangrene 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, lymphoma, [id number] unspecified unspecified , , unspecified unspecified site site 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) [id number] (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, seizures, not not intractable intractable , without , without status status epilepticus epilepticus Radiculopat Radiculopat Diagnosis Active Adry hy, lumbar hy, lumbar Ingrahm region region [id number] 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 [id number] [facility] 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 [id number] diseases diseases classified classified elsewhere elsewhere Benign Benign Diagnosis Active Adry prostatic prostatic Ingrahm hyperplasia hyperplasia [id number] without without lower lower urinary urinary tract tract symptoms symptoms 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 [id number] insufficien insufficien cy 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 [id number] unspecified unspecified sites in sites in spine spine 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, psoriasis, [id number] unspecified unspecified Other Other Diagnosis Active Adry dysphagia dysphagia Ingrahm [id number] 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 [id number] n n 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 s with s with [id number] current current pathologica pathologica l fracture, l fracture, vertebra(e) vertebra(e) , , subsequent subsequent encounter encounter for for fracture fracture with with routine routine healing healing 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 Active Adry (current) (current) Ingrahm use of use of [id number] antithrombo antithrombo tics/antipl tics/antipl atelets atelets F[facility] termite control technician Diagnosis Active Adry (current) (current) Ingrahm use of use of [id number] antibiotics antibiotics FPC termite control technician Diagnosis Active Adry (current) (current) Ingrahm use of use of [id number] systemic systemic steroids steroids termite control technician FPC Diagnosis Active Adry (current) (current) Ingrahm use of use of [id number] opiate opiate analgesic analgesic 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 [id number] below knee below knee 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 [id number] Pain frequent Pain Mgmt Resolve 2018-2019-07-18 Grace pain d 0-01 13:00:00 (Pennie) 10:30: Mondragon 00 [id number] Cardio edema Cardiovasc Resolve 2018-102019-07-24 Grace ular d 0-01 09:00:00 (Pennie) 10:30: Mondragon [id number] Respiratory dyspnea Respirator Resolve 2018-102019-07-24 Grace present y d 0-01 09:00:00 (Pennie) 10:30: Mondragon [id number] Endo/David anti-coagul Endo/David Resolve 2018-102019-07-18 Grace ation d 0-01 13:00:00 (Pennie) therapy 10:30: [id number] Integument skin Integument Resolve 2018-102019-07-24 Grace integrity d 0-01 09:00:00 (Pennie) risk 10:30: Mondragon [id number] Elimination urinary Eliminatio Resolve 2018-102019-07-24 Grace incontinenc n d 0-01 09:00:00 (Pennie) e 10:30: [id number] Neuro confusion Neuro/Emot Resolve 2018-102019-09-26 Grace present ion d 0-01 10:25:00 (Pennie) 10:30: [id number] Neuro depressive Neuro/Emot Resolve 2018-102019-09-26 Grace feelings ion d 0-01 10:25:00 (Pennie) present 10:30: Mondragon [id number] Neuro impaired Neuro/Emot Resolve 2018-102019-09-26 Grace decision-ma ion d 0-01 10:25:00 (Pennie) guanako 10:30: [id number] Neuro memory Neuro/Emot Resolve 2018-102019-09-26 Grace deficit ion d 0-01 10:25:00 (Pennie) needing 10:30: Mondragon supervision 00 [id number] Activity ADL Activity Resolve 2018-102019-07-24 Grace assistance d 0-01 09:00:00 (Pennie) required 10:30: Mondragon 00 [id number] Activity self-care Activity Resolve 2018-102019-07-24 Grace deficit d 0-01 09:00:00 (Pennie) 10:30: Mondragon [id number] Safety fall risk Safety Resolve 2018-102019-10-03 Grace factor d 0-01 09:30:00 (Pennie) present 10:30: Mondragon 00 [id number] Safety cannot be Safety Resolve 2018-102019-10-03 Graec left alone d 0-01 09:30:00 (Pennie) 10:30: Mondragon 00 [id number] Safety risk for Safety Resolve 2018-102019-10-03 Grace hospitaliza d 0-01 09:30:00 (Pennie) tion 10:30: Mondragon 00 [id number] Medication oral med Meds Resolve 2018-102019-07-18 Grace assistance d 0-01 13:00:00 (Pennie) required 10:30: Mondragon 00 [id number] Musculoskel transfer Musculoske Resolve 2018-102019-07-24 Grace etal assistance letal d 0-01 09:00:00 (Pennie) required 10:30: Mondragon 00 [id number] Musculoskel requires Musculoske Resolve 2018-102019-07-24 Grace etal human letal d 0-01 09:00:00 (Pennie) assist to 10:30: Mondragon leave home 00 [id number] Nutrition nutritional Nutrition Resolve 2018-102019-07-18 Bimal restriction d 0-02 13:00:00 Anguish s 13:46: [id number] 00 Safety structural Safety Resolve 2018-102019-07-24 Bimal barriers d 0-02 09:00:00 Anguish present 13:46: [id number] 00 Safety can be left Safety Resolve 2018-102019-10-03 Bimal alone for d 0-02 09:30:00 Anguish only short 13:46: [id number] periods 00 Balance/End balance/high school coordinator PT/OT: Resolve 2018-102019-12-18 Bimal urance rdination Balance/En d 0-02 10:30:00 Anguish deficit durance 13:46: [id number] 00 Balance/End endurance PT/OT: Resolve 2018-102019-12-18 Bimal urance deficit Balance/En d 0-02 10:30:00 Anguish durance 13:46: [id number] 00 Equipment prosthesis PT/OT: Resolve 2018-102019-12-18 Bimal Mgmt mgmt Equipment d 0-02 10:30:00 Anguish deficit Mgmt 13:46: [id number] 00 Gait/Locomo gait PT/OT: Resolve 2018-102019-12-18 Bimal tion deficit Gait/Locom d 0-02 10:30:00 Anguish problems otion 13:46: [id number] 00 Elimination bowel Eliminatio Resolve 2018-102019-07-24 Adry incontinenc n d 0-15 09:00:00 Ingrahm e 10:00: [id number] 00 Gait/Locomo gait PT/OT: Resolve 2018-102019-12-18 Bimal tion assistive Gait/Locom d 0-18 10:30:00 Anguish problems device otion 10:20: [id number] present 00 Nutrition nutritional Nutrition Resolve 2018-102019-07-24 Adry restriction d 0-22 09:00:00 Ingrahm s 10:00: [id number] 00 Nutrition nutritional Nutrition Resolve 2018-102019-08-14 Adry restriction d 0-29 09:59:00 Ingrahm s 08:46: [id number] 00 Integument skin Integument Active 2018-10 Velvet [...] ulcer d 2-03 09:30:00 Ingrahm present 09:53: [id number] 00 Integument surgical Integument Resolve 2018-102019-10-03 Adry wound d 2-03 09:30:00 Ingrahm present 09:53: [id number] 00 Integument stasis Integument Resolve 2018-102019-10-03 Maylin ulcer d 2-03 09:30:00 Jefferson present 09:53: [id number] 00 Bed transfer PT/OT: Bed Resolve 2018-102019-12-18 Bimal Mobility/Tr deficit: Mobility/T d 2-03 10:30:00 Anguish ansfer standing ransfer 11:50: [id number] pivot 00 Bed transfer PT/OT: Bed Resolve 2018-102019-12-18 Bimal Mobility/Tr deficit: Mobility/T d 2 10:30:00 Jose De Jesus worthy toilet/comm ransfer 11:50: [id number] ode 00 Bed transfer PT/OT: Bed Resolve 2018-102019-12-18 Bimal Mobility/Tr deficit: Mobility/T d 2 10:30:00 Jose De Jesus worthy shower/tub ransfer 11:50: [id number] 00 Activity self-care Activity Resolve 2019-10-17 Adry deficit d 10-03 10:00:00 Ingrahm 09:30: [id number] 00 Activity ADL Activity Resolve 2019-10-17 Bimal assistance d 10-07 10:00:00 Anguish required 10:38: [id number] 00 Safety risk for Safety Resolve 2019-12-18 Bimal hospitaliza d 10-07 10:30:00 Anguish tion 10:38: [id number] 00 Safety can be left Safety Resolve 2019-12-18 Adry alone for d 10-10 10:30:00 Ingrahm only short 11:20: [id number] periods 00 Activity ADL Activity Active Maylin assistance 10-24 Jefferson required 09:40: [id number] 00 Activity self-care Activity Active Adry deficit 10-24 Ingrahm 09:40: [id number] 00 Safety fall risk Safety Resolve 2019-12-18 Adry factor d 10-24 10:30:00 Ingrahm present 09:40: [id number] 00 Allergies, Adverse Reactions, Alerts Allergy Name [...]
--- OUTSIDE RECORDS SUMMARY | 2020-01-07 06:37 | XMS REPORT ---
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, disease, [id number] unspecified unspecified 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 without angina angina pectoris pectoris Essential Essential Diagnosis Active Adry (primary) (primary) 1 Ingrahm hypertensio hypertensio [id number] n n Epilepsy, Epilepsy, Diagnosis Active Adry unspecified unspecified 10-01 Ingrahm , not , not [id number] intractable intractable , without , without status status epilepticus epilepticus Enterocolit Enterocolit Diagnosis Active 2018-10 Adry is due to is due to 0-13 Ingrahm Clostridium Clostridium [id number] difficile, difficile, not not specified specified as as recurrent recurrent Raynaud's Raynaud's Diagnosis Active Adry syndrome syndrome Ingrahm without without [id number] gangrene gangrene 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, lymphoma, 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 unspecified unspecified , , unspecified unspecified site site 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) [id number] (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, seizures, not not intractable intractable , without , without status status epilepticus epilepticus Radiculopat Radiculopat Diagnosis Active Adry hy, lumbar hy, lumbar Ingrahm region region [id number] 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 [id number] [facility] 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 [id number] diseases diseases classified classified elsewhere elsewhere Benign Benign Diagnosis Active Adry prostatic prostatic Ingrahm hyperplasia hyperplasia [id number] without without lower lower urinary urinary tract tract symptoms symptoms 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 [id number] unspecified unspecified sites in sites in spine spine 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, psoriasis, [id number] unspecified unspecified Other Other Diagnosis Active Adry dysphagia dysphagia Ingrahm [id number] 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 [id number] n n 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 s with s with [id number] current current pathologica pathologica l fracture, l fracture, vertebra(e) vertebra(e) , , subsequent subsequent encounter encounter for for fracture fracture with with routine routine healing healing 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 (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) (current) Ingrahm use of use of [id number] antithrombo antithrombo tics/antipl tics/antipl atelets atelets 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 Active Adry (current) (current) Ingrahm use of use of [id number] antibiotics antibiotics 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 Active Adry (current) (current) Ingrahm use of use of [id number] systemic systemic steroids steroids biomedical electronics technician custodial Diagnosis Active Adry (current) (current) Ingrahm use of use of [id number] opiate opiate analgesic analgesic 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 [id number] below knee below knee 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 [id number] Pain frequent Pain Mgmt Resolve 2018-2019-07-18 Grace pain d 0-01 13:00:00 (Pennie) 10:30: Mondragon 00 [id number] Cardio edema Cardiovasc Resolve 2018-102019-07-24 Grace ular d 0-01 09:00:00 (Pennie) 10:30: Mondragon [id number] Respiratory dyspnea Respirator Resolve 2018-102019-07-24 Grace present y d 0-01 09:00:00 (Pennie) 10:30: Mondragon [id number] Endo/David anti-coagul Endo/David Resolve 2018-102019-07-18 Grace ation d 0-01 13:00:00 (Pennie) therapy 10:30: [id number] Integument skin Integument Resolve 2018-102019-07-24 Grace integrity d 0-01 09:00:00 (Pennie) risk 10:30: Mondragon [id number] Elimination urinary Eliminatio Resolve 2018-102019-07-24 Grace incontinenc n d 0-01 09:00:00 (Pennie) e 10:30: [id number] Neuro confusion Neuro/Emot Resolve 2018-102019-09-26 Grace present ion d 0-01 10:25:00 (Pennie) 10:30: [id number] Neuro depressive Neuro/Emot Resolve 2018-102019-09-26 Grace feelings ion d 0-01 10:25:00 (Pennie) present 10:30: Mondragon [id number] Neuro impaired Neuro/Emot Resolve 2018-102019-09-26 Grace decision-ma ion d 0-01 10:25:00 (Pennie) guanako 10:30: [id number] Neuro memory Neuro/Emot Resolve 2018-102019-09-26 Grace deficit ion d 0-01 10:25:00 (Pennie) needing 10:30: Mondragon supervision 00 [id number] Activity ADL Activity Resolve 2018-102019-07-24 Grace assistance d 0-01 09:00:00 (Pennie) required 10:30: Mondragon 00 [id number] Activity self-care Activity Resolve 2018-102019-07-24 Grace deficit d 0-01 09:00:00 (Pennie) 10:30: Mondragon [id number] Safety fall risk Safety Resolve 2018-102019-10-03 Grace factor d 0-01 09:30:00 (Pennie) present 10:30: Mondragon 00 [id number] Safety cannot be Safety Resolve 2018-102019-10-03 Grace left alone d 0-01 09:30:00 (Pennie) 10:30: Mondragon 00 [id number] Safety risk for Safety Resolve 2018-102019-10-03 Grace hospitaliza d 0-01 09:30:00 (Pennie) tion 10:30: Mondragon 00 [id number] Medication oral med Meds Resolve 2018-102019-07-18 Grace assistance d 0-01 13:00:00 (Pennie) required 10:30: Mondragon 00 [id number] Musculoskel transfer Musculoske Resolve 2018-102019-07-24 Grace etal assistance letal d 0-01 09:00:00 (Pennie) required 10:30: Mondragon 00 [id number] Musculoskel requires Musculoske Resolve 2018-102019-07-24 Grace etal human letal d 0-01 09:00:00 (Pennie) assist to 10:30: Mondragon leave home 00 [id number] Nutrition nutritional Nutrition Resolve 2018-102019-07-18 Bimal restriction d 0-02 13:00:00 Anguish s 13:46: [id number] 00 Safety structural Safety Resolve 2018-102019-07-24 Bimal barriers d 0-02 09:00:00 Anguish present 13:46: [id number] 00 Safety can be left Safety Resolve 2018-102019-10-03 Bimal alone for d 0-02 09:30:00 Anguish only short 13:46: [id number] periods 00 Balance/End balance/training and development coordinator PT/OT: Resolve 2018-102019-12-18 Bimal urance rdination Balance/En d 0-02 10:30:00 Anguish deficit durance 13:46: [id number] 00 Balance/End endurance PT/OT: Resolve 2018-102019-12-18 Bimal urance deficit Balance/En d 0-02 10:30:00 Anguish durance 13:46: [id number] 00 Equipment prosthesis PT/OT: Resolve 2018-102019-12-18 Bimal Mgmt mgmt Equipment d 0-02 10:30:00 Anguish deficit Mgmt 13:46: [id number] 00 Gait/Locomo gait PT/OT: Resolve 2018-102019-12-18 Bimal tion deficit Gait/Locom d 0-02 10:30:00 Anguish problems otion 13:46: [id number] Elimination bowel Eliminatio Resolve 2018-102019-07-24 Ardy incontinenc n d 0-15 09:00:00 Ingrahm e 10:00: [id number] 00 Gait/Locomo gait PT/OT: Resolve 2018-102019-12-18 Bimal tion assistive Gait/Locom d 0-18 10:30:00 Anguish problems device otion 10:20: [id number] present 00 Nutrition nutritional Nutrition Resolve 2018-102019-07-24 Adry restriction d 0-22 09:00:00 Ingrahm s 10:00: [id number] Nutrition nutritional Nutrition Resolve 2018-102019-08-14 Adry restriction d 0-29 09:59:00 Ingrahm s 08:46: [id number] 00 Integument skin Integument Active 2018-10 Velvet [...] ulcer d 2-03 09:30:00 Ingrahm present 09:53: [id number] 00 Integument surgical Integument Resolve 2018-102019-10-03 Adry wound d 2-03 09:30:00 Ingrahm present 09:53: [id number] 00 Integument stasis Integument Resolve 2018-102019-10-03 Maylin ulcer d 2-03 09:30:00 Jefferson present 09:53: [id number] 00 Bed transfer PT/OT: Bed Resolve 2018-102019-12-18 Bimal Mobility/Tr deficit: Mobility/T d 2-03 10:30:00 Anguish ansfer standing ransfer 11:50: [id number] pivot 00 Bed transfer PT/OT: Bed Resolve 2018-102019-12-18 Bimal Mobility/Tr deficit: Mobility/T d 2 10:30:00 Jose De Jesus worthy toilet/comm ransfer 11:50: [id number] ode 00 Bed transfer PT/OT: Bed Resolve 2018-102019-12-18 Bimal Mobility/Tr deficit: Mobility/T d 2 10:30:00 Jose De Jesus worthy shower/tub ransfer 11:50: [id number] 00 Activity self-care Activity Resolve 2019-10-17 Adry deficit d 10-03 10:00:00 Ingrahm 09:30: [id number] 00 Activity ADL Activity Resolve 2019-10-17 Bimal assistance d 10-07 10:00:00 Anguish required 10:38: [id number] 00 Safety risk for Safety Resolve 2019-12-18 Bimal hospitaliza d 10-07 10:30:00 Anguish tion 10:38: [id number] 00 Safety can be left Safety Resolve 2019-12-18 Adry alone for d 1-10 10:30:00 Ingrahm only short 11:20: [id number] periods 00 Activity ADL Activity Active Maylin assistance 10-24 Jefferson required 09:40: [id number] 00 Activity self-care Activity Active Adry deficit 1-24 Ingrahm 09:40: [id number] 00 Safety fall risk Safety Resolve 2019-12-18 Adry factor d - 10:30:00 Ingrahm present 09:40: [id number] 00 Safety can be left Safety Active Adry alone for 3-20 Ingrahm only short 09:30: [id number] periods 00 Safety risk for Safety Active 2019- Adry hospitaliza 3-20 Ingrahm tion 09:30: [id number] 00 Allergies, Adverse Reactions, Alerts Allergy Name [...] Castillo Unknown Unknown 75 mg 75 mg 0- MD,May tablet tablet levETIRAcet levETIRAcet 2018-10 No Castillo Unknown Unknown am 500 mg am 500 mg MD,May tablet tablet demeclocycl demeclocycl No Castillo Unknown Unknown ine 150 mg ine 150 mg MD,May tablet tablet predniSONE predniSONE 2018-10 No Castillo Unknown Unknown 5 mg tablet 5 mg tablet 0 MD,May gabapentin gabapentin 2018-10- No Castillo Unknown [...] for nebulizatio nebulizatio n n sodium sodium 2018-10- No Castillo Unknown Unknown chloride 1 chloride 1 08-23 MD,May gram tablet gram tablet acetaminoph acetaminoph 2018-10 No Castillo Unknown Unknown en 325 mg en 325 mg 10-23 MD,May capsule capsule sildenafil sildenafil No Castillo Unknown Unknown (pulmonary (pulmonary MD,May hypertensio hypertensio n) 20 mg n) 20 mg tablet tablet fludrocorti fludrocorti 2018-10 No Castillo Unknown Unknown sone 0.1 mg sone 0.1 mg 0- MD,May tablet tablet atorvastati atorvastati 2018-10 No Castillo Unknown Unknown n 40 mg n 40 mg - MD,May tablet tablet Calcium 600 Calcium 600 No Castillo Unknown Unknown + D(3) 600 + D(3) 600 MD,May mg mg calcium-200 calcium-200 unit unit capsule capsule Centrum Centrum 2018-10 No Castillo Unknown Unknown Silver Men Silver Men 1- MD,May 300 mcg-600 300 mcg-600 mcg-300 mcg [...] 250 mg (as 250 mg (as 0- 10-15 MD,May magnesium magnesium oxide) oxide) tablet tablet potassium potassium 2018-10- No Castillo Unknown Unknown chloride ER chloride ER 0-15 11-23 MD,May 20 mEq 20 mEq tablet,exte tablet,exte nded nded release(par release(par t/cryst) t/cryst) vancomycin vancomycin 2018-10- No Castillo Unknown Unknown 125 mg 125 mg 0-15 02-12 MD,May capsule capsule magnesium magnesium 2018-10 No Castillo Unknown Unknown 250 mg (as 250 mg (as - MD,May magnesium magnesium oxide) oxide) tablet tablet potassium potassium 2018-10 No Castillo Unknown Unknown chloride ER chloride ER 1- MD,May 20 mEq 20 mEq tablet,exte tablet,exte nded nded release(par release(par t/cryst) t/cryst) omeprazole omeprazole 2018-10 No Castillo Unknown Unknown 20 mg 20 mg 1- MD,May capsule,del capsule,del ayed ayed release release doxycycline doxycycline 2018-10 2020- No Castillo Unknown Unknown hyclate 100 hyclate 100 10-23 ,May mg capsule mg capsule sodium sodium 2018-10 No Castillo Unknown Unknown chloride 1 chloride 1 10-23 ,May gram tablet gram tablet gabapentin gabapentin 2018-10 No Castillo Unknown Unknown 600 mg 600 mg 10-23 MD,May tablet tablet levETIRAcet levETIRAcet Yes Castillo Unknown Unknown am 250 mg am 250 mg - MD,May tablet tablet Vital Signs Vital Name Observation Time Observation Value Comments SYSTOLIC mm[Hg] 2019-12-25 18:11:04 116 mm[Hg] mm[Hg] Method: Sit SYSTOLIC mm[Hg] 2019-07-06 18:08:12 130 mm[Hg] mm[Hg] Method: Stand DIASTOLIC mm[Hg] 2019-12-25 18:11:04 72 mm[Hg] mm[Hg] Method: Sit DIASTOLIC mm[Hg] 2019-07-06 18:08:12 90 mm[Hg] mm[Hg] Method: Stand PULSE 2019-12-25 18:11:04 67 /min /min RESP RATE 2019-12-25 18:11:04 16 /min /min TEMP 2019-12-25 18:11:04 97.5 [degF] Procedures This patient has no known procedures. Results This patient has no known results.
--- OUTSIDE RECORDS SUMMARY | 2020-01-07 06:37 | XMS REPORT ---
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, disease, [id number] unspecified unspecified 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 Essential Essential Diagnosis Active Adry (primary) (primary) 1 Ingrahm hypertensio hypertensio [id number] n n Epilepsy, Epilepsy, Diagnosis Active Adry unspecified unspecified 10-01 Ingrahm , not , not [id number] intractable intractable , without , without status status epilepticus epilepticus Enterocolit Enterocolit Diagnosis Active 2018-10 Adry is due to is due to 0-13 Ingrahm Clostridium Clostridium [id number] difficile, difficile, not not specified specified as as recurrent recurrent Raynaud's Raynaud's Diagnosis Active Adry syndrome syndrome Ingrahm without without [id number] gangrene gangrene 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, lymphoma, [id number] unspecified unspecified , , unspecified unspecified site site 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) [id number] (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, seizures, not not intractable intractable , without , without status status epilepticus epilepticus Radiculopat Radiculopat Diagnosis Active Adry hy, lumbar hy, lumbar Ingrahm region region [id number] 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 [id number] 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 [id number] diseases diseases classified classified elsewhere elsewhere Benign Benign Diagnosis Active Adry prostatic prostatic Ingrahm hyperplasia hyperplasia [id number] without without lower lower urinary urinary tract tract symptoms symptoms 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 [id number] unspecified unspecified sites in sites in spine spine 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, psoriasis, [id number] unspecified unspecified Other Other Diagnosis Active Adry dysphagia dysphagia Ingrahm [id number] 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 [id number] n n 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 s with s with [id number] current current pathologica pathologica l fracture, l fracture, vertebra(e) vertebra(e) , , subsequent subsequent encounter encounter for for fracture fracture with with routine routine healing healing MCFP MCFP Diagnosis Active Adry (current) (current) Ingrahm use of use of [id number] antithrombo antithrombo tics/antipl tics/antipl atelets atelets 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 Adry (current) (current) Ingrahm use of use of [id number] antibiotics antibiotics MCFP MCFP Diagnosis Active Adry (current) (current) Ingrahm use of use of [id number] systemic systemic steroids steroids MCFP MCFP Diagnosis Active Adry (current) (current) Ingrahm use of use of [id number] opiate opiate analgesic analgesic 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 [id number] below knee below knee 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 [id number] Pain frequent Pain Mgmt Resolve 2018-2019-07-18 Grace pain d 0-01 13:00:00 (Pennie) 10:30: Mondragon 00 [id number] Cardio edema Cardiovasc Resolve 2018-102019-07-24 Grace ular d 0-01 09:00:00 (Pennie) 10:30: Mondragon [id number] Respiratory dyspnea Respirator Resolve 2018-102019-07-24 Grace present y d 0-01 09:00:00 (Pennie) 10:30: Mondragon [id number] Endo/David anti-coagul Endo/David Resolve 2018-102019-07-18 Grace ation d 0-01 13:00:00 (Pennie) therapy 10:30: [id number] Integument skin Integument Resolve 2018-102019-07-24 Grace integrity d 0-01 09:00:00 (Pennie) risk 10:30: Mondragon [id number] Elimination urinary Eliminatio Resolve 2018-102019-07-24 Grace incontinenc n d 0-01 09:00:00 (Pennie) e 10:30: [id number] Neuro confusion Neuro/Emot Resolve 2018-102019-09-26 Grace present ion d 0-01 10:25:00 (Pennie) 10:30: [id number] Neuro depressive Neuro/Emot Resolve 2018-102019-09-26 Grace feelings ion d 0-01 10:25:00 (Pennie) present 10:30: Mondragon [id number] Neuro impaired Neuro/Emot Resolve 2018-102019-09-26 Grace decision-ma ion d 0-01 10:25:00 (Pennie) guanako 10:30: [id number] Neuro memory Neuro/Emot Resolve 2018-102019-09-26 Grace deficit ion d 0-01 10:25:00 (Pennie) needing 10:30: Mondragon supervision 00 [id number] Activity ADL Activity Resolve 2018-102019-07-24 Grace assistance d 0-01 09:00:00 (Pennie) required 10:30: Mondragon 00 [id number] Activity self-care Activity Resolve 2018-102019-07-24 Grace deficit d 0-01 09:00:00 (Pennie) 10:30: Mondragon [id number] Safety fall risk Safety Resolve 2018-102019-10-03 Grace factor d 0-01 09:30:00 (Pennie) present 10:30: Mondragon 00 [id number] Safety cannot be Safety Resolve 2018-102019-10-03 Grace left alone d 0-01 09:30:00 (Pennie) 10:30: Mondragon 00 [id number] Safety risk for Safety Resolve 2018-102019-10-03 Grace hospitaliza d 0-01 09:30:00 (Pennie) tion 10:30: Mondragon 00 [id number] Medication oral med Meds Resolve 2018-102019-07-18 Grace assistance d 0-01 13:00:00 (Pennie) required 10:30: Mondragon 00 [id number] Musculoskel transfer Musculoske Resolve 2018-102019-07-24 Grace etal assistance letal d 0-01 09:00:00 (Pennie) required 10:30: Mondragon 00 [id number] Musculoskel requires Musculoske Resolve 2018-102019-07-24 Grace etal human letal d 0-01 09:00:00 (Pennie) assist to 10:30: Mondragon leave home 00 [id number] Nutrition nutritional Nutrition Resolve 2018-102019-07-18 Bimal restriction d 0-02 13:00:00 Anguish s 13:46: [id number] 00 Safety structural Safety Resolve 2018-102019-07-24 Bimal barriers d 0-02 09:00:00 Anguish present 13:46: [id number] 00 Safety can be left Safety Resolve 2018-102019-10-03 Bimal alone for d 0-02 09:30:00 Anguish only short 13:46: [id number] periods 00 Balance/End balance/nursing project coordinator PT/OT: Resolve 2018-102019-12-18 Bimal urance rdination Balance/En d 0-02 10:30:00 Anguish deficit durance 13:46: [id number] 00 Balance/End endurance PT/OT: Resolve 2018-102019-12-18 Bimal urance deficit Balance/En d 0-02 10:30:00 Anguish durance 13:46: [id number] 00 Equipment prosthesis PT/OT: Resolve 2018-102019-12-18 Bimal Mgmt mgmt Equipment d 0-02 10:30:00 Anguish deficit Mgmt 13:46: [id number] 00 Gait/Locomo gait PT/OT: Resolve 2018-102019-12-18 Bimal tion deficit Gait/Locom d 0-02 10:30:00 Anguish problems otion 13:46: [id number] 00 Elimination bowel Eliminatio Resolve 2018-102019-07-24 Adry incontinenc n d 0-15 09:00:00 Ingrahm e 10:00: [id number] 00 Gait/Locomo gait PT/OT: Resolve 2018-102019-12-18 Bimal tion assistive Gait/Locom d 0-18 10:30:00 Anguish problems device otion 10:20: [id number] present 00 Nutrition nutritional Nutrition Resolve 2018-102019-07-24 Adry restriction d 0-22 09:00:00 Ingrahm s 10:00: [id number] 00 Nutrition nutritional Nutrition Resolve 2018-102019-08-14 Adry restriction d 0-29 09:59:00 Ingrahm s 08:46: [id number] 00 Integument skin Integument Active 2018-10 Velvet integrity 10-23 Carrier RN risk 12:00: 00 Medication oral med Meds Resolve 2018-102019-09-02 Velvet assistance d 1-23 09:53:00 Carrier RN required 12:00: 00 Musculoskel transfer Musculoske Resolve 2018-102019-12-26 Velvet etal assistance letal d 10-23 10:20:00 Carrier RN required 12:00: 00 Musculoskel requires Musculoske Resolve 2018-102019-12-26 Velvet etal human letal d - 10:20:00 Carrier RN assist to 12:00: leave home 00 Integument pressure Integument Resolve 2018-102019-10-03 Adry ulcer d 2-03 09:30:00 Ingrahm present 09:53: [id number] 00 Integument surgical Integument Resolve 2018-102019-10-03 Adry wound d 2-03 09:30:00 Ingrahm present 09:53: [id number] 00 Integument stasis Integument Resolve 2018-102019-10-03 Maylin ulcer d 2-03 09:30:00 Jefferson present 09:53: [id number] 00 Bed transfer PT/OT: Bed Resolve 2018-102019-12-18 Bimal Mobility/Tr deficit: Mobility/T d 2-03 10:30:00 Anguish ansfer standing ransfer 11:50: [id number] pivot 00 Bed transfer PT/OT: Bed Resolve 2018-102019-12-18 Bimal Mobility/Tr deficit: Mobility/T d 2- 10:30:00 Anguish ansfer toilet/comm ransfer 11:50: [id number] ode 00 Bed transfer PT/OT: Bed Resolve 2018-102019-12-18 Bimal Mobility/Tr deficit: Mobility/T d 2- 10:30:00 Anguish ansfer shower/tub ransfer 11:50: [id number] 00 Activity self-care Activity Resolve 2019-10-17 Adry deficit d 10-03 10:00:00 Ingrahm 09:30: [id number] 00 Activity ADL Activity Resolve 2019-10-17 Bimal assistance d 10-07 10:00:00 Anguish required 10:38: [id number] 00 Safety risk for Safety Resolve 2019-12-18 Bimal hospitaliza d 10-07 10:30:00 Anguish tion 10:38: [id number] 00 Safety can be left Safety Resolve 2019-12-18 Adry alone for d 1- 10:30:00 Ingrahm only short 11:20: [id number] periods 00 Activity ADL Activity Resolve 2019-12-26 Maylin assistance d 10-24 10:20:00 Jefferson required 09:40: [id number] 00 Activity self-care Activity Resolve 2019-12-26 Adry deficit d - 10:20:00 Ingrahm 09:40: [id number] 00 Safety fall risk Safety Resolve 2019-12-18 Adry factor d 10-24 10:30:00 Ingrahm present 09:40: [id number] 00 Safety can be left Safety Resolve 2019-12-26 Adry alone for d 12-18 10:20:00 Ingrahm only short 09:30: [id number] periods 00 Safety risk for Safety Resolve 2019-12-26 Adry hospitaliza d 12-18 10:20:00 Ingrahm tion 09:30: [id number] 00 Allergies, Adverse Reactions, Alerts Allergy Name [...] Date Date Medication? Clinician (SIG) Name Name clopidogreL clopidogreL 2018-10 No Castillo Unknown Unknown 75 mg 75 mg 0- MD,May tablet tablet levETIRAcet levETIRAcet 2018-10 No Castillo Unknown Unknown am 500 mg am 500 mg 0- MD,May tablet tablet demeclocycl demeclocycl No Castillo [...] Castillo Unknown Unknown chloride 1 chloride 1 0-08-23 MD,May gram tablet gram tablet acetaminoph acetaminoph 2018-10 No Castillo Unknown Unknown en 325 mg en 325 mg 10-23 MD,May capsule capsule sildenafiL sildenafiL No Castillo Unknown Unknown (pulmonary (pulmonary MD,May hypertensio hypertensio n) 20 mg n) 20 mg tablet tablet fludrocorti fludrocorti 2018-10 No Castillo Unknown Unknown sone 0.1 mg sone 0.1 mg 0 MD,May tablet tablet atorvastati atorvastati 2018-10 No Castillo Unknown Unknown n 40 mg n 40 mg 10-23 MD,Mya tablet tablet Calcium 600 Calcium 600 No [...] 0.4 mg 0.4 mg MD,May capsule capsule sildenafiL sildenafiL 2018-10 No Castillo Unknown Unknown (pulmonary (pulmonary 0- MD,May hypertensio hypertensio n) 20 mg n) 20 mg tablet tablet magnesium magnesium 2018-10- No Castillo Unknown Unknown 250 mg (as 250 mg (as 0- MD,May magnesium magnesium oxide) oxide) tablet tablet potassium potassium 2018-10- No Castillo Unknown Unknown chloride ER chloride ER 0- MD,May 20 mEq 20 mEq tablet,exte tablet,exte nded nded release(par release(par t/cryst) t/cryst) vancomycin vancomycin 2018-10- No Castillo Unknown Unknown 125 mg 125 mg 0 02-12 MD,May capsule capsule magnesium magnesium 2018-10 No Castillo Unknown Unknown 250 mg (as 250 mg (as 10-23 MD,May magnesium magnesium oxide) oxide) tablet tablet potassium potassium 2018-10 No Castillo Unknown Unknown chloride ER chloride ER - MD,May 20 mEq 20 mEq tablet,exte tablet,exte nded nded release(par release(par t/cryst) t/cryst) omeprazole omeprazole 2018-10 No Castillo Unknown Unknown 20 mg 20 mg - MD,May capsule,del capsule,del ayed ayed release release doxycycline doxycycline 2018-10 No Castillo Unknown Unknown hyclate 100 hyclate 100 10-23 02- MD,May mg capsule mg capsule sodium sodium 2018-10 No Castillo Unknown Unknown chloride 1 chloride 1 10-23 MD,May gram tablet gram tablet gabapentin gabapentin 2018-10 No Castillo Unknown Unknown 600 mg 600 mg 10-23 MD,May tablet tablet levETIRAcet levETIRAcet Yes Castillo Unknown Unknown am 250 mg am 250 mg 3-10 MD,May tablet tablet Vital Signs Vital Name Observation Time Observation Value Comments SYSTOLIC mm[Hg] 2019-12-29 18:11:08 130 mm[Hg] mm[Hg] Method: Sit SYSTOLIC mm[Hg] 2019-07-06 18:08:12 130 mm[Hg] mm[Hg] Method: Stand DIASTOLIC mm[Hg] 2019-12-29 18:11:08 68 mm[Hg] mm[Hg] Method: Sit DIASTOLIC mm[Hg] 2019-07-06 18:08:12 90 mm[Hg] mm[Hg] Method: Stand PULSE 2019-12-29 18:11:08 77 /min /min RESP RATE 2019-12-29 18:11:08 16 /min /min TEMP 2019-12-29 18:11:08 96.9 [degF] Procedures This patient has no known procedures. Results This patient has no known results.
--- OUTSIDE RECORDS SUMMARY | 2020-01-07 06:37 | XMS REPORT ---
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, disease, [id number] unspecified unspecified 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 [id number] [place]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 without angina angina pectoris pectoris Essential Essential Diagnosis Active Adry (primary) (primary) 1 Ingrahm hypertensio hypertensio [id number] n n Epilepsy, Epilepsy, Diagnosis Active Adry unspecified unspecified 10-01 Ingrahm , not , not [id number] intractable intractable , without , without status status epilepticus epilepticus Enterocolit Enterocolit Diagnosis Active 2018-10 Adry is due to is due to 0-13 Ingrahm Clostridium Clostridium [id number] difficile, difficile, not not specified specified as as recurrent recurrent Raynaud's Raynaud's Diagnosis Active Adry syndrome syndrome Ingrahm without without [id number] gangrene gangrene 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, lymphoma, [id number] unspecified unspecified , , unspecified unspecified site site 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) [id number] (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, seizures, not not intractable intractable , without , without status status epilepticus epilepticus Radiculopat Radiculopat Diagnosis Active Adry hy, lumbar hy, lumbar Ingrahm region region [id number] 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 [id number] [facility] 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 [id number] diseases diseases classified classified elsewhere elsewhere Benign Benign Diagnosis Active Adry prostatic prostatic Ingrahm hyperplasia hyperplasia [id number] without without lower lower urinary urinary tract tract symptoms symptoms 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 [id number] insufficien insufficien cy 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 [id number] unspecified unspecified sites in sites in spine spine 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, psoriasis, [id number] unspecified unspecified Other Other Diagnosis Active Adry dysphagia dysphagia Ingrahm [id number] 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 [id number] n n 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 s with s with [id number] current current pathologica pathologica l fracture, l fracture, vertebra(e) vertebra(e) , , subsequent subsequent encounter encounter for for fracture fracture with with routine routine healing healing assisted assisted Diagnosis Active Adry (current) (current) Ingrahm use of use of [id number] antithrombo antithrombo tics/antipl tics/antipl atelets atelets assisted 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 Adry (current) (current) Ingrahm use of use of [id number] antibiotics antibiotics assisted assisted Diagnosis Active Adry (current) (current) Ingrahm use of use of [id number] systemic systemic steroids steroids assisted assisted Diagnosis Active Adry (current) (current) Ingrahm use of use of [id number] opiate opiate analgesic analgesic 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 [id number] below knee below knee 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 [id number] Pain frequent Pain Mgmt Resolve 2018-2019-07-18 Grace pain d 0-01 13:00:00 (Pennie) 10:30: Mondragon 00 [id number] Cardio edema Cardiovasc Resolve 2018-102019-07-24 Grace ular d 0-01 09:00:00 (Pennie) 10:30: Mondragon [id number] Respiratory dyspnea Respirator Resolve 2018-102019-07-24 Grace present y d 0-01 09:00:00 (Pennie) 10:30: Mondragon [id number] Endo/David anti-coagul Endo/David Resolve 2018-102019-07-18 Grace ation d 0-01 13:00:00 (Pennie) therapy 10:30: [id number] Integument skin Integument Resolve 2018-102019-07-24 Grace integrity d 0-01 09:00:00 (Pennie) risk 10:30: Mondragon [id number] Elimination urinary Eliminatio Resolve 2018-102019-07-24 Grace incontinenc n d 0-01 09:00:00 (Pennie) e 10:30: [id number] Neuro confusion Neuro/Emot Resolve 2018-102019-09-26 Grace present ion d 0-01 10:25:00 (Pennie) 10:30: [id number] Neuro depressive Neuro/Emot Resolve 2018-102019-09-26 Grace feelings ion d 0-01 10:25:00 (Pennie) present 10:30: Mondragon [id number] Neuro impaired Neuro/Emot Resolve 2018-102019-09-26 Grace decision-ma ion d 0-01 10:25:00 (Pennie) guanako 10:30: [id number] Neuro memory Neuro/Emot Resolve 2018-102019-09-26 Grace deficit ion d 0-01 10:25:00 (Pennie) needing 10:30: Mondragon supervision 00 [id number] Activity ADL Activity Resolve 2018-102019-07-24 Grace assistance d 0-01 09:00:00 (Pennie) required 10:30: Mondragon 00 [id number] Activity self-care Activity Resolve 2018-102019-07-24 Grace deficit d 0-01 09:00:00 (Pennie) 10:30: Mondragon [id number] Safety fall risk Safety Resolve 2018-102019-10-03 Grace factor d 0-01 09:30:00 (Pennie) present 10:30: Mondragon 00 [id number] Safety cannot be Safety Resolve 2018-102019-10-03 Grace left alone d 0-01 09:30:00 (Pennie) 10:30: Mondragon 00 [id number] Safety risk for Safety Resolve 2018-102019-10-03 Grace hospitaliza d 0-01 09:30:00 (Pennie) tion 10:30: Mondragon 00 [id number] Medication oral med Meds Resolve 2018-102019-07-18 Grace assistance d 0-01 13:00:00 (Pennie) required 10:30: Mondragon 00 [id number] Musculoskel transfer Musculoske Resolve 2018-102019-07-24 Grace etal assistance letal d 0-01 09:00:00 (Pennie) required 10:30: Mondragon 00 [id number] Musculoskel requires Musculoske Resolve 2018-102019-07-24 Grace etal human letal d 0-01 09:00:00 (Pennie) assist to 10:30: Mondragon leave home 00 [id number] Nutrition nutritional Nutrition Resolve 2018-102019-07-18 Bimal restriction d 0-02 13:00:00 Anguish s 13:46: [id number] 00 Safety structural Safety Resolve 2018-102019-07-24 Bimal barriers d 0-02 09:00:00 Anguish present 13:46: [id number] 00 Safety can be left Safety Resolve 2018-102019-10-03 Bimal alone for d 0-02 09:30:00 Anguish only short 13:46: [id number] periods 00 Balance/End balance/health unit coordinator PT/OT: Resolve 2018-102019-12-18 Bimal urance rdination Balance/En d 0-02 10:30:00 Anguish deficit durance 13:46: [id number] 00 Balance/End endurance PT/OT: Resolve 2018-102019-12-18 Bimal urance deficit Balance/En d 0-02 10:30:00 Anguish durance 13:46: [id number] 00 Equipment prosthesis PT/OT: Resolve 2018-102019-12-18 Bimal Mgmt mgmt Equipment d 0-02 10:30:00 Anguish deficit Mgmt 13:46: [id number] 00 Gait/Locomo gait PT/OT: Resolve 2018-102019-12-18 Bimal tion deficit Gait/Locom d 0-02 10:30:00 Anguish problems otion 13:46: [id number] 00 Elimination bowel Eliminatio Resolve 2018-102019-07-24 Adry incontinenc n d 0-15 09:00:00 Ingrahm e 10:00: [id number] 00 Gait/Locomo gait PT/OT: Resolve 2018-102019-12-18 Bimal tion assistive Gait/Locom d 0-18 10:30:00 Anguish problems device otion 10:20: [id number] present 00 Nutrition nutritional Nutrition Resolve 2018-102019-07-24 Adry restriction d 0-22 09:00:00 Ingrahm s 10:00: [id number] 00 Nutrition nutritional Nutrition Resolve 2018-102019-08-14 Adry restriction d 0-29 09:59:00 Ingrahm s 08:46: [id number] 00 Integument skin Integument Active 2018-10 Velvet [...] ulcer d 2-03 09:30:00 Ingrahm present 09:53: [id number] 00 Integument surgical Integument Resolve 2018-102019-10-03 Adry wound d 2-03 09:30:00 Ingrahm present 09:53: [id number] 00 Integument stasis Integument Resolve 2018-102019-10-03 Maylin ulcer d 2-03 09:30:00 Jefferson present 09:53: [id number] 00 Bed transfer PT/OT: Bed Resolve 2018-102019-12-18 Bimal Mobility/Tr deficit: Mobility/T d 2-03 10:30:00 Anguish ansfer standing ransfer 11:50: [id number] pivot 00 Bed transfer PT/OT: Bed Resolve 2018-102019-12-18 Bimal Mobility/Tr deficit: Mobility/T d 2 10:30:00 Jose De Jesus worthy toilet/comm ransfer 11:50: [id number] ode 00 Bed transfer PT/OT: Bed Resolve 2018-102019-12-18 Bimal Mobility/Tr deficit: Mobility/T d 2 10:30:00 Jose De Jesus worthy shower/tub ransfer 11:50: [id number] 00 Activity self-care Activity Resolve 2019-10-17 Adry deficit d 10-03 10:00:00 Ingrahm 09:30: [id number] 00 Activity ADL Activity Resolve 2019-10-17 Bimal assistance d 10-07 10:00:00 Anguish required 10:38: [id number] 00 Safety risk for Safety Resolve 2019-12-18 Bimal hospitaliza d 10-07 10:30:00 Anguish tion 10:38: [id number] 00 Safety can be left Safety Resolve 2019-12-18 Adry alone for d 1-10 10:30:00 Ingrahm only short 11:20: [id number] periods 00 Activity ADL Activity Active Maylin assistance 10-24 Jefferson required 09:40: [id number] 00 Activity self-care Activity Active Adry deficit 1-24 Ingrahm 09:40: [id number] 00 Safety fall risk Safety Resolve 2019-12-18 Adry factor d - 10:30:00 Ingrahm present 09:40: [id number] 00 Safety can be left Safety Active Adry alone for 3-20 Ingrahm only short 09:30: [id number] periods 00 Safety risk for Safety Active 2019- Adry hospitaliza 3-20 Ingrahm tion 09:30: [id number] 00 Allergies, Adverse Reactions, Alerts Allergy Name [...]
--- OUTSIDE RECORDS SUMMARY | 2020-01-07 06:37 | XMS REPORT ---
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, disease, [id number] unspecified unspecified 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 angina pectoris pectoris Essential Essential Diagnosis Active Adry (primary) (primary) 1 Ingrahm hypertensio hypertensio [id number] n n Epilepsy, Epilepsy, Diagnosis Active Adry unspecified unspecified 10-01 Ingrahm , not , not [id number] intractable intractable , without , without status status epilepticus epilepticus Enterocolit Enterocolit Diagnosis Active 2018-10 Adry is due to is due to 0-13 Ingrahm Clostridium Clostridium [id number] difficile, difficile, not not specified specified as as recurrent recurrent Raynaud's Raynaud's Diagnosis Active Adry syndrome syndrome Ingrahm without without [id number] gangrene gangrene 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, lymphoma, 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 unspecified unspecified , , unspecified unspecified site site 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) [id number] (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, seizures, not not intractable intractable , without , without status status epilepticus epilepticus Radiculopat Radiculopat Diagnosis Active Adry hy, lumbar hy, lumbar Ingrahm region region [id number] 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 [id number] [facility] 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 [id number] diseases diseases classified classified elsewhere elsewhere Benign Benign Diagnosis Active Adry prostatic prostatic Ingrahm hyperplasia hyperplasia [id number] without without lower lower urinary urinary tract tract symptoms symptoms 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 [id number] unspecified unspecified sites in sites in spine spine 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, psoriasis, [id number] unspecified unspecified Other Other Diagnosis Active Adry dysphagia dysphagia Ingrahm [id number] 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 [id number] n n 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 s with s with [id number] current current pathologica pathologica l fracture, l fracture, vertebra(e) vertebra(e) , , subsequent subsequent encounter encounter for for fracture fracture with with routine routine healing healing 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 rat 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 Diagnosis Active Adry (current) (current) Ingrahm use of use of [id number] antithrombo antithrombo tics/antipl tics/antipl atelets atelets senior care rat 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 Diagnosis Active Adry (current) (current) Ingrahm use of use of [id number] antibiotics antibiotics senior care rat 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 Diagnosis Active Adry (current) (current) Ingrahm use of use of [id number] systemic systemic steroids steroids rat 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 senior care Diagnosis Active Adry (current) (current) Ingrahm use of use of [id number] opiate opiate analgesic analgesic 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 [id number] below knee below knee 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 [id number] Pain frequent Pain Mgmt Resolve 2018-2019-07-18 Grace pain d 0-01 13:00:00 (Pennie) 10:30: Mondragon 00 [id number] Cardio edema Cardiovasc Resolve 2018-102019-07-24 Grace ular d 0-01 09:00:00 (Pennie) 10:30: Mondragon [id number] Respiratory dyspnea Respirator Resolve 2018-102019-07-24 Grace present y d 0-01 09:00:00 (Pennie) 10:30: Mondragon [id number] Endo/David anti-coagul Endo/David Resolve 2018-102019-07-18 Grace ation d 0-01 13:00:00 (Pennie) therapy 10:30: [id number] Integument skin Integument Resolve 2018-102019-07-24 Grace integrity d 0-01 09:00:00 (Pennie) risk 10:30: Mondragon [id number] Elimination urinary Eliminatio Resolve 2018-102019-07-24 Grace incontinenc n d 0-01 09:00:00 (Pennie) e 10:30: [id number] Neuro confusion Neuro/Emot Resolve 2018-102019-09-26 Grace present ion d 0-01 10:25:00 (Pennie) 10:30: [id number] Neuro depressive Neuro/Emot Resolve 2018-102019-09-26 Grace feelings ion d 0-01 10:25:00 (Pennie) present 10:30: Mondragon [id number] Neuro impaired Neuro/Emot Resolve 2018-102019-09-26 Grace decision-ma ion d 0-01 10:25:00 (Pennie) guanako 10:30: [id number] Neuro memory Neuro/Emot Resolve 2018-102019-09-26 Grace deficit ion d 0-01 10:25:00 (Pennie) needing 10:30: Mondragon supervision 00 [id number] Activity ADL Activity Resolve 2018-102019-07-24 Grace assistance d 0-01 09:00:00 (Pennie) required 10:30: Mondragon 00 [id number] Activity self-care Activity Resolve 2018-102019-07-24 Grace deficit d 0-01 09:00:00 (Pennie) 10:30: Mondragon [id number] Safety fall risk Safety Resolve 2018-102019-10-03 Grace factor d 0-01 09:30:00 (Pennie) present 10:30: Mondragon 00 [id number] Safety cannot be Safety Resolve 2018-102019-10-03 Grace left alone d 0-01 09:30:00 (Pennie) 10:30: Mondragon 00 [id number] Safety risk for Safety Resolve 2018-102019-10-03 Grcae hospitaliza d 0-01 09:30:00 (Pennie) tion 10:30: Mondragon 00 [id number] Medication oral med Meds Resolve 2018-102019-07-18 Grace assistance d 0-01 13:00:00 (Pennie) required 10:30: Mondragon 00 [id number] Musculoskel transfer Musculoske Resolve 2018-102019-07-24 Grace etal assistance letal d 0-01 09:00:00 (Pennie) required 10:30: Mondragon 00 [id number] Musculoskel requires Musculoske Resolve 2018-102019-07-24 Grace etal human letal d 0-01 09:00:00 (Pennie) assist to 10:30: Mondragon leave home 00 [id number] Nutrition nutritional Nutrition Resolve 2018-102019-07-18 Bimal restriction d 0-02 13:00:00 Anguish s 13:46: [id number] 00 Safety structural Safety Resolve 2018-102019-07-24 Bimal barriers d 0-02 09:00:00 Anguish present 13:46: [id number] 00 Safety can be left Safety Resolve 2018-102019-10-03 Bimal alone for d 0-02 09:30:00 Anguish only short 13:46: [id number] periods 00 Balance/End balance/cheese cooker PT/OT: Resolve 2018-102019-12-18 Bimal urance rdination Balance/En d 0-02 10:30:00 Anguish deficit durance 13:46: [id number] 00 Balance/End endurance PT/OT: Resolve 2018-102019-12-18 Bimal urance deficit Balance/En d 0-02 10:30:00 Anguish durance 13:46: [id number] 00 Equipment prosthesis PT/OT: Resolve 2018-102019-12-18 Bimal Mgmt mgmt Equipment d 0-02 10:30:00 Anguish deficit Mgmt 13:46: [id number] 00 Gait/Locomo gait PT/OT: Resolve 2018-102019-12-18 Bimal tion deficit Gait/Locom d 0-02 10:30:00 Anguish problems otion 13:46: [id number] 00 Elimination bowel Eliminatio Resolve 2018-102019-07-24 Adry incontinenc n d 0-15 09:00:00 Ingrahm e 10:00: [id number] 00 Gait/Locomo gait PT/OT: Resolve 2018-102019-12-18 Bimal tion assistive Gait/Locom d 0-18 10:30:00 Anguish problems device otion 10:20: [id number] present 00 Nutrition nutritional Nutrition Resolve 2018-102019-07-24 Adry restriction d 0-22 09:00:00 Ingrahm s 10:00: [id number] 00 Nutrition nutritional Nutrition Resolve 2018-102019-08-14 Adry restriction d 0-29 09:59:00 Ingrahm s 08:46: [id number] 00 Integument skin Integument Active 2018-10 Velvet [...] ulcer d 2-03 09:30:00 Ingrahm present 09:53: [id number] 00 Integument surgical Integument Resolve 2018-102019-10-03 Adry wound d 2-03 09:30:00 Ingrahm present 09:53: [id number] 00 Integument stasis Integument Resolve 2018-102019-10-03 Maylin ulcer d 2-03 09:30:00 Jefferson present 09:53: [id number] 00 Bed transfer PT/OT: Bed Resolve 2018-102019-12-18 Bimal Mobility/Tr deficit: Mobility/T d 2-03 10:30:00 Anguish ansfer standing ransfer 11:50: [id number] pivot 00 Bed transfer PT/OT: Bed Resolve 2018-102019-12-18 Bimal Mobility/Tr deficit: Mobility/T d 2 10:30:00 Jose De Jesus worthy toilet/comm ransfer 11:50: [id number] ode 00 Bed transfer PT/OT: Bed Resolve 2018-102019-12-18 Bimal Mobility/Tr deficit: Mobility/T d 2 10:30:00 Jose De Jesus worthy shower/tub ransfer 11:50: [id number] 00 Activity self-care Activity Resolve 2019-10-17 Adry deficit d 10-03 10:00:00 Ingrahm 09:30: [id number] 00 Activity ADL Activity Resolve 2019-10-17 Bimal assistance d 10-07 10:00:00 Anguish required 10:38: [id number] 00 Safety risk for Safety Resolve 2019-12-18 Bimal hospitaliza d 10-07 10:30:00 Anguish tion 10:38: [id number] 00 Safety can be left Safety Resolve 2019-12-18 Adry alone for d 10-10 10:30:00 Ingrahm only short 11:20: [id number] periods 00 Activity ADL Activity Active Maylin assistance 10-24 Jefferson required 09:40: [id number] 00 Activity self-care Activity Active Adry deficit 10-24 Ingrahm 09:40: [id number] 00 Safety fall risk Safety Resolve 2019-12-18 Adry factor d 10-24 10:30:00 Ingrahm present 09:40: [id number] 00 Allergies, Adverse Reactions, Alerts Allergy Name [...]
--- OUTSIDE RECORDS SUMMARY | 2020-01-07 06:37 | XMS REPORT ---
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, disease, [id number] unspecified unspecified 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 [place]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 without angina angina pectoris pectoris Essential Essential Diagnosis Active Adry (primary) (primary) 1 Ingrahm hypertensio hypertensio [id number] n n Epilepsy, Epilepsy, Diagnosis Active Adry unspecified unspecified 10-01 Ingrahm , not , not [id number] intractable intractable , without , without status status epilepticus epilepticus Enterocolit Enterocolit Diagnosis Active 2018-10 Adry is due to is due to 0-13 Ingrahm Clostridium Clostridium [id number] difficile, difficile, not not specified specified as as recurrent recurrent Raynaud's Raynaud's Diagnosis Active Adry syndrome syndrome Ingrahm without without [id number] gangrene gangrene 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, lymphoma, [id number] unspecified unspecified , , unspecified unspecified site site 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) [id number] (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, seizures, not not intractable intractable , without , without status status epilepticus epilepticus Radiculopat Radiculopat Diagnosis Active Adry hy, lumbar hy, lumbar Ingrahm region region [id number] 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 [id number] [facility] 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 [id number] diseases diseases classified classified elsewhere elsewhere Benign Benign Diagnosis Active Adry prostatic prostatic Ingrahm hyperplasia hyperplasia [id number] without without lower lower urinary urinary tract tract symptoms symptoms 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 [id number] insufficien insufficien cy 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 [id number] unspecified unspecified sites in sites in spine spine 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, psoriasis, [id number] unspecified unspecified Other Other Diagnosis Active Adry dysphagia dysphagia Ingrahm [id number] 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 [id number] n n 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 s with s with [id number] current current pathologica pathologica l fracture, l fracture, vertebra(e) vertebra(e) , , subsequent subsequent encounter encounter for for fracture fracture with with routine routine healing healing roasterman roasterman Diagnosis Active Adry (current) (current) Ingrahm use of use of [id number] antithrombo antithrombo tics/antipl tics/antipl atelets atelets FDC roasterman Diagnosis Active Adry (current) (current) Ingrahm use of use of [id number] antibiotics antibiotics FDC roasterman Diagnosis Active Adry (current) (current) Ingrahm use of use of [id number] systemic systemic steroids steroids roasterman FDC Diagnosis Active Adry (current) (current) Ingrahm use of use of [id number] opiate opiate analgesic analgesic 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 [id number] below knee below knee 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 [id number] Pain frequent Pain Mgmt Resolve 2018-2019-07-18 Grace pain d 0-01 13:00:00 (Pennie) 10:30: Mondragon 00 [id number] Cardio edema Cardiovasc Resolve 2018-102019-07-24 Grace ular d 0-01 09:00:00 (Pennie) 10:30: Mondragon [id number] Respiratory dyspnea Respirator Resolve 2018-102019-07-24 Grace present y d 0-01 09:00:00 (Pennie) 10:30: Mondragon [id number] Endo/David anti-coagul Endo/David Resolve 2018-102019-07-18 Grace ation d 0-01 13:00:00 (Pennie) therapy 10:30: [id number] Integument skin Integument Resolve 2018-102019-07-24 Grace integrity d 0-01 09:00:00 (Pennie) risk 10:30: Mondragon [id number] Elimination urinary Eliminatio Resolve 2018-102019-07-24 Grace incontinenc n d 0-01 09:00:00 (Pennie) e 10:30: [id number] Neuro confusion Neuro/Emot Resolve 2018-102019-09-26 Grace present ion d 0-01 10:25:00 (Pennie) 10:30: [id number] Neuro depressive Neuro/Emot Resolve 2018-102019-09-26 Grace feelings ion d 0-01 10:25:00 (Pennie) present 10:30: Mondragon [id number] Neuro impaired Neuro/Emot Resolve 2018-102019-09-26 Grace decision-ma ion d 0-01 10:25:00 (Pennie) guanako 10:30: [id number] Neuro memory Neuro/Emot Resolve 2018-102019-09-26 Grace deficit ion d 0-01 10:25:00 (Pennie) needing 10:30: Mondragon supervision 00 [id number] Activity ADL Activity Resolve 2018-102019-07-24 Grace assistance d 0-01 09:00:00 (Pennie) required 10:30: Mondragon 00 [id number] Activity self-care Activity Resolve 2018-102019-07-24 Grace deficit d 0-01 09:00:00 (Pennie) 10:30: Mondragon [id number] Safety fall risk Safety Resolve 2018-102019-10-03 Grace factor d 0-01 09:30:00 (Pennie) present 10:30: Mondragon 00 [id number] Safety cannot be Safety Resolve 2018-102019-10-03 Grace left alone d 0-01 09:30:00 (Pennie) 10:30: Mondragon 00 [id number] Safety risk for Safety Resolve 2018-102019-10-03 Grace hospitaliza d 0-01 09:30:00 (Pennie) tion 10:30: Mondragon 00 [id number] Medication oral med Meds Resolve 2018-102019-07-18 Grace assistance d 0-01 13:00:00 (Pennie) required 10:30: Mondragon 00 [id number] Musculoskel transfer Musculoske Resolve 2018-102019-07-24 Grace etal assistance letal d 0-01 09:00:00 (Pennie) required 10:30: Mondragon 00 [id number] Musculoskel requires Musculoske Resolve 2018-102019-07-24 Grace etal human letal d 0-01 09:00:00 (Pennie) assist to 10:30: Mondragon leave home 00 [id number] Nutrition nutritional Nutrition Resolve 2018-102019-07-18 Bimal restriction d 0-02 13:00:00 Anguish s 13:46: [id number] 00 Safety structural Safety Resolve 2018-102019-07-24 Bimal barriers d 0-02 09:00:00 Anguish present 13:46: [id number] 00 Safety can be left Safety Resolve 2018-102019-10-03 Bimal alone for d 0-02 09:30:00 Anguish only short 13:46: [id number] periods 00 Balance/End balance/mortgage loan coordinator PT/OT: Resolve 2018-102019-12-18 Bimal urance rdination Balance/En d 0-02 10:30:00 Anguish deficit durance 13:46: [id number] 00 Balance/End endurance PT/OT: Resolve 2018-102019-12-18 Bimal urance deficit Balance/En d 0-02 10:30:00 Anguish durance 13:46: [id number] 00 Equipment prosthesis PT/OT: Resolve 2018-102019-12-18 Bimal Mgmt mgmt Equipment d 0-02 10:30:00 Anguish deficit Mgmt 13:46: [id number] 00 Gait/Locomo gait PT/OT: Resolve 2018-102019-12-18 Bimal tion deficit Gait/Locom d 0-02 10:30:00 Anguish problems otion 13:46: [id number] 00 Elimination bowel Eliminatio Resolve 2018-102019-07-24 Adry incontinenc n d 0-15 09:00:00 Ingrahm e 10:00: [id number] 00 Gait/Locomo gait PT/OT: Resolve 2018-102019-12-18 Bimal tion assistive Gait/Locom d 0-18 10:30:00 Anguish problems device otion 10:20: [id number] present 00 Nutrition nutritional Nutrition Resolve 2018-102019-07-24 Adry restriction d 0-22 09:00:00 Ingrahm s 10:00: [id number] 00 Nutrition nutritional Nutrition Resolve 2018-102019-08-14 Adry restriction d 0-29 09:59:00 Ingrahm s 08:46: [id number] 00 Integument skin Integument Active 2018-10 Velvet [...] ulcer d 2-03 09:30:00 Ingrahm present 09:53: [id number] 00 Integument surgical Integument Resolve 2018-102019-10-03 Adry wound d 2-03 09:30:00 Ingrahm present 09:53: [id number] 00 Integument stasis Integument Resolve 2018-102019-10-03 Maylin ulcer d 2-03 09:30:00 Jefferson present 09:53: [id number] 00 Bed transfer PT/OT: Bed Resolve 2018-102019-12-18 Bimal Mobility/Tr deficit: Mobility/T d 2-03 10:30:00 Anguish ansfer standing ransfer 11:50: [id number] pivot 00 Bed transfer PT/OT: Bed Resolve 2018-102019-12-18 Bimal Mobility/Tr deficit: Mobility/T d 2 10:30:00 Jose De Jesus worthy toilet/comm ransfer 11:50: [id number] ode 00 Bed transfer PT/OT: Bed Resolve 2018-102019-12-18 Bimal Mobility/Tr deficit: Mobility/T d 2 10:30:00 Jose De Jesus worthy shower/tub ransfer 11:50: [id number] 00 Activity self-care Activity Resolve 2019-10-17 Adry deficit d 10-03 10:00:00 Ingrahm 09:30: [id number] 00 Activity ADL Activity Resolve 2019-10-17 Bimal assistance d 10-07 10:00:00 Anguish required 10:38: [id number] 00 Safety risk for Safety Resolve 2019-12-18 Bimal hospitaliza d 10-07 10:30:00 Anguish tion 10:38: [id number] 00 Safety can be left Safety Resolve 2019-12-18 Adry alone for d 1-10 10:30:00 Ingrahm only short 11:20: [id number] periods 00 Activity ADL Activity Active Maylin assistance 10-24 Jefferson required 09:40: [id number] 00 Activity self-care Activity Active Adry deficit 1-24 Ingrahm 09:40: [id number] 00 Safety fall risk Safety Resolve 2019-12-18 Adry factor d - 10:30:00 Ingrahm present 09:40: [id number] 00 Safety can be left Safety Active Adry alone for 3-20 Ingrahm only short 09:30: [id number] periods 00 Safety risk for Safety Active 2019- Adry hospitaliza 3-20 Ingrahm tion 09:30: [id number] 00 Allergies, Adverse Reactions, Alerts Allergy Name [...]
--- OUTSIDE RECORDS SUMMARY | 2020-01-07 06:37 | XMS REPORT ---
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, disease, [id number] unspecified unspecified 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 pectoris pectoris Essential Essential Diagnosis Active Adry (primary) (primary) 1 Ingrahm hypertensio hypertensio [id number] n n Epilepsy, Epilepsy, Diagnosis Active Adry unspecified unspecified 10-01 Ingrahm , not , not [id number] intractable intractable , without , without status status epilepticus epilepticus Enterocolit Enterocolit Diagnosis Active 2018-10 Adry is due to is due to 0-13 Ingrahm Clostridium Clostridium [id number] difficile, difficile, not not specified specified as as recurrent recurrent Raynaud's Raynaud's Diagnosis Active Adry syndrome syndrome Ingrahm without without [id number] gangrene gangrene 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, lymphoma, [id number] unspecified unspecified , , unspecified unspecified site site 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) [id number] (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, seizures, not not intractable intractable , without , without status status epilepticus epilepticus Radiculopat Radiculopat Diagnosis Active Adry hy, lumbar hy, lumbar Ingrahm region region [id number] 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 [id number] [facility] 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 [id number] diseases diseases classified classified elsewhere elsewhere Benign Benign Diagnosis Active Adry prostatic prostatic Ingrahm hyperplasia hyperplasia [id number] without without lower lower urinary urinary tract tract symptoms symptoms 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 [id number] unspecified unspecified sites in sites in spine spine 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, psoriasis, [id number] unspecified unspecified Other Other Diagnosis Active Adry dysphagia dysphagia Ingrahm [id number] 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 [id number] n n 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 s with s with [id number] current current pathologica pathologica l fracture, l fracture, vertebra(e) vertebra(e) , , subsequent subsequent encounter encounter for for fracture fracture with with routine routine healing healing [facility]PC FPC Diagnosis Active Adry (current) (current) Ingrahm use of use of [id number] antithrombo antithrombo tics/antipl tics/antipl atelets atelets [facility] [employer]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 Adry (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) (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) Ingrahm use of use of [id number] antibiotics antibiotics FPC FPC Diagnosis Active Adry (current) (current) Ingrahm use of use of [id number] systemic systemic steroids steroids FPC FPC Diagnosis Active Adry (current) (current) Ingrahm use of use of [id number] opiate opiate analgesic analgesic 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 [id number] below knee below knee 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 [id number] Pain frequent Pain Mgmt Resolve 2018-2019-07-18 Grace pain d 0-01 13:00:00 (Pennie) 10:30: Mondragon 00 [id number] Cardio edema Cardiovasc Resolve 2018-102019-07-24 Grace ular d 0-01 09:00:00 (Pennie) 10:30: Mondragon [id number] Respiratory dyspnea Respirator Resolve 2018-102019-07-24 Grace present y d 0-01 09:00:00 (Pennie) 10:30: Mondragon [id number] Endo/David anti-coagul Endo/David Resolve 2018-102019-07-18 Grace ation d 0-01 13:00:00 (Epnnie) therapy 10:30: [id number] Integument skin Integument Resolve 2018-102019-07-24 Graec integrity d 0-01 09:00:00 (Pennie) risk 10:30: Mondragon [id number] Elimination urinary Eliminatio Resolve 2018-102019-07-24 Grace incontinenc n d 0-01 09:00:00 (Pennie) e 10:30: [id number] Neuro confusion Neuro/Emot Resolve 2018-102019-09-26 Grace present ion d 0-01 10:25:00 (Pennie) 10:30: [id number] Neuro depressive Neuro/Emot Resolve 2018-102019-09-26 Grace feelings ion d 0-01 10:25:00 (Pennie) present 10:30: Mondragon [id number] Neuro impaired Neuro/Emot Resolve 2018-102019-09-26 Grace decision-ma ion d 0-01 10:25:00 (Pennie) guanako 10:30: [id number] Neuro memory Neuro/Emot Resolve 2018-102019-09-26 Grace deficit ion d 0-01 10:25:00 (Pennie) needing 10:30: Mondragon supervision 00 [id number] Activity ADL Activity Resolve 2018-102019-07-24 Grace assistance d 0-01 09:00:00 (Pennie) required 10:30: Mondragon 00 [id number] Activity self-care Activity Resolve 2018-102019-07-24 Grace deficit d 0-01 09:00:00 (Pennie) 10:30: Mondragon [id number] Safety fall risk Safety Resolve 2018-102019-10-03 Grace factor d 0-01 09:30:00 (Pennie) present 10:30: Mondragon 00 [id number] Safety cannot be Safety Resolve 2018-102019-10-03 Grace left alone d 0-01 09:30:00 (Pennie) 10:30: Mondragon 00 [id number] Safety risk for Safety Resolve 2018-102019-10-03 Grace hospitaliza d 0-01 09:30:00 (Pennie) tion 10:30: Mondragon 00 [id number] Medication oral med Meds Resolve 2018-102019-07-18 Grace assistance d 0-01 13:00:00 (Pennie) required 10:30: Mondragon 00 [id number] Musculoskel transfer Musculoske Resolve 2018-102019-07-24 Grace etal assistance letal d 0-01 09:00:00 (Pennie) required 10:30: Mondragon 00 [id number] Musculoskel requires Musculoske Resolve 2018-102019-07-24 Grace etal human letal d 0-01 09:00:00 (Pennie) assist to 10:30: Mondragon leave home 00 [id number] Nutrition nutritional Nutrition Resolve 2018-102019-07-18 Bimal restriction d 0-02 13:00:00 Anguish s 13:46: [id number] 00 Safety structural Safety Resolve 2018-102019-07-24 Bimal barriers d 0-02 09:00:00 Anguish present 13:46: [id number] 00 Safety can be left Safety Resolve 2018-102019-10-03 Bimal alone for d 0-02 09:30:00 Anguish only short 13:46: [id number] periods 00 Balance/End balance/programming coordinator PT/OT: Resolve 2018-102019-12-18 Bimal urance rdination Balance/En d 0-02 10:30:00 Anguish deficit durance 13:46: [id number] 00 Balance/End endurance PT/OT: Resolve 2018-102019-12-18 Bimal urance deficit Balance/En d 0-02 10:30:00 Anguish durance 13:46: [id number] 00 Equipment prosthesis PT/OT: Resolve 2018-102019-12-18 Bimal Mgmt mgmt Equipment d 0-02 10:30:00 Anguish deficit Mgmt 13:46: [id number] 00 Gait/Locomo gait PT/OT: Resolve 2018-102019-12-18 Bimal tion deficit Gait/Locom d 0-02 10:30:00 Anguish problems otion 13:46: [id number] 00 Elimination bowel Eliminatio Resolve 2018-102019-07-24 Adry incontinenc n d 0-15 09:00:00 Ingrahm e 10:00: [id number] 00 Gait/Locomo gait PT/OT: Resolve 2018-102019-12-18 Bimal tion assistive Gait/Locom d 0-18 10:30:00 Anguish problems device otion 10:20: [id number] present 00 Nutrition nutritional Nutrition Resolve 2018-102019-07-24 Adry restriction d 0-22 09:00:00 Ingrahm s 10:00: [id number] 00 Nutrition nutritional Nutrition Resolve 2018-102019-08-14 Adry restriction d 0-29 09:59:00 Ingrahm s 08:46: [id number] 00 Integument skin Integument Active 2018-10 Velvet [...] ulcer d 2-03 09:30:00 Ingrahm present 09:53: [id number] 00 Integument surgical Integument Resolve 2018-102019-10-03 Adry wound d 2-03 09:30:00 Ingrahm present 09:53: [id number] 00 Integument stasis Integument Resolve 2018-102019-10-03 Maylin ulcer d 2-03 09:30:00 Jefferson present 09:53: [id number] 00 Bed transfer PT/OT: Bed Resolve 2018-102019-12-18 Bimal Mobility/Tr deficit: Mobility/T d 2-03 10:30:00 Anguish ansfer standing ransfer 11:50: [id number] pivot 00 Bed transfer PT/OT: Bed Resolve 2018-102019-12-18 Bimal Mobility/Tr deficit: Mobility/T d 2 10:30:00 Jose De Jesus worthy toilet/comm ransfer 11:50: [id number] ode 00 Bed transfer PT/OT: Bed Resolve 2018-102019-12-18 Bimal Mobility/Tr deficit: Mobility/T d 2 10:30:00 Jose De Jesus worthy shower/tub ransfer 11:50: [id number] 00 Activity self-care Activity Resolve 2019-10-17 Adry deficit d 10-03 10:00:00 Ingrahm 09:30: [id number] 00 Activity ADL Activity Resolve 2019-10-17 Bimal assistance d 10-07 10:00:00 Anguish required 10:38: [id number] 00 Safety risk for Safety Resolve 2019-12-18 Bimal hospitaliza d 10-07 10:30:00 Anguish tion 10:38: [id number] 00 Safety can be left Safety Resolve 2019-12-18 Adry alone for d 1-10 10:30:00 Ingrahm only short 11:20: [id number] periods 00 Activity ADL Activity Active Maylin assistance 10-24 Jefferson required 09:40: [id number] 00 Activity self-care Activity Active Adry deficit 1-24 Ingrahm 09:40: [id number] 00 Safety fall risk Safety Resolve 2019-12-18 Adry factor d - 10:30:00 Ingrahm present 09:40: [id number] 00 Safety can be left Safety Active Adry alone for 3-20 Ingrahm only short 09:30: [id number] periods 00 Safety risk for Safety Active 2019- Adry hospitaliza 3-20 Ingrahm tion 09:30: [id number] 00 Allergies, Adverse Reactions, Alerts Allergy Name [...]
--- OUTSIDE RECORDS SUMMARY | 2020-01-07 06:38 | XMS REPORT ---
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, disease, [id number] unspecified unspecified 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 [id number] [place]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 without angina angina pectoris pectoris Essential Essential Diagnosis Active Adry (primary) (primary) 1 Ingrahm hypertensio hypertensio [id number] n n 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 Ingrahm [id number] Enterocolit Enterocolit Diagnosis Active 2018-10 Adry is due to is due to 0-13 Ingrahm Clostridium Clostridium [id number] difficile, difficile, not not specified specified as as recurrent recurrent Raynaud's Raynaud's Diagnosis Active Adry syndrome syndrome Ingrahm without without [id number] gangrene gangrene 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, lymphoma, [id number] unspecified unspecified , , unspecified unspecified site site 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) [id number] (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, seizures, not not intractable intractable , without , without status status epilepticus epilepticus Radiculopat Radiculopat Diagnosis Active Adry hy, lumbar hy, lumbar Ingrahm region region [id number] 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 [id number] 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 [id number] diseases diseases classified classified elsewhere elsewhere Benign Benign Diagnosis Active Adry prostatic prostatic Ingrahm hyperplasia hyperplasia [id number] without without lower lower urinary urinary tract tract symptoms symptoms 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 insufficien cy 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 [id number] unspecified unspecified sites in sites in spine spine 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, psoriasis, [id number] unspecified unspecified Other Other Diagnosis Active Adry dysphagia dysphagia Ingrahm [id number] 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 [id number] n n 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 s with s with [id number] current current pathologica pathologica l fracture, l fracture, vertebra(e) vertebra(e) , , subsequent subsequent encounter encounter for for fracture fracture with with routine routine healing healing [facility] 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 use of use of [id number] antithrombo antithrombo tics/antipl tics/antipl atelets atelets [facility] Diagnosis Active Adry (current) (current) Ingrahm use of use of [id number] antibiotics antibiotics 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 [facility] Diagnosis Active Adry (current) (current) Ingrahm use of use of [id number] systemic systemic steroids steroids [facility] 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 use of use of [id number] opiate opiate analgesic analgesic 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 [id number] below knee below knee Personal Personal Diagnosis Active Adry history of history of Ingrahm nicotine nicotine [id number] dependence dependence Pain frequent Pain Mgmt Resolve 2018-102019-07-18 Grace pain d 0-01 13:00:00 (Pennie) 10:30: Mondragon 00 [id number] Cardio edema Cardiovasc Resolve 2018-102019-07-24 Grace ular d 0-01 09:00:00 (Pennie) 10:30: Mondragon 00 [id number] Respiratory dyspnea Respirator Resolve 2018-102019-07-24 Grace present y d 0-01 09:00:00 (Pennie) 10:30: Mondragon 00 [id number] Endo/David anti-coagul Endo/David Resolve 2018-102019-07-18 Grace ation d 0-01 13:00:00 (Pennie) therapy 10:30: Mondragon [id number] Integument skin Integument Resolve 2018-102019-07-24 Grace integrity d 0-01 09:00:00 (Pennie) risk 10:30: Mondragon [id number] Elimination urinary Eliminatio Resolve 2018-102019-07-24 Grace incontinenc n d 0-01 09:00:00 (Pennie) e 10:30: Mondragon 00 [id number] Neuro confusion Neuro/Emot Resolve 2018-102019-09-26 Grace present ion d 0-01 10:25:00 (Pennie) 10:30: Mondragon [id number] Neuro depressive Neuro/Emot Resolve 2018-102019-09-26 Grace feelings ion d 0-01 10:25:00 (Pennie) present 10:30: Mondragon [id number] Neuro impaired Neuro/Emot Resolve 2018-102019-09-26 Grace decision-ma ion d 0-01 10:25:00 (Pennie) guanako 10:30: [id number] Neuro memory Neuro/Emot Resolve 2018-102019-09-26 Grace deficit ion d 0-01 10:25:00 (Pennie) needing 10:30: Mondragon supervision 00 [id number] Activity ADL Activity Resolve 2018-102019-07-24 Grace assistance d 0-01 09:00:00 (Pennie) required 10:30: Mondragon 00 [id number] Activity self-care Activity Resolve 2018-102019-07-24 Grace deficit d 0-01 09:00:00 (Pennie) 10:30: Mondragon 00 [id number] Safety fall risk Safety Resolve 2018-102019-10-03 Grace factor d 0-01 09:30:00 (Pennie) present 10:30: Mondragon [id number] Safety cannot be Safety Resolve 2018-102019-10-03 Grace left alone d 0-01 09:30:00 (Pennie) 10:30: Mondragon [id number] Safety risk for Safety Resolve 2018-102019-10-03 Grace hospitaliza d 0-01 09:30:00 (Pennie) tion 10:30: Mondragon [id number] Medication oral med Meds Resolve 2018-102019-07-18 Grace assistance d 0-01 13:00:00 (Pennie) required 10:30: Mondragon [id number] Musculoskel transfer Musculoske Resolve 2018-102019-07-24 Grace etal assistance letal d 0-01 09:00:00 (Pennie) required 10:30: Mondragon [id number] Musculoskel requires Musculoske Resolve 2018-102019-07-24 Grace etal human letal d 0-01 09:00:00 (Pennie) assist to 10:30: Mondragon leave home 00 [id number] Nutrition nutritional Nutrition Resolve 2018-102019-07-18 Bimal restriction d 0-02 13:00:00 Anguish s 13:46: [id number] 00 Safety structural Safety Resolve 2018-102019-07-24 Bimal barriers d 0-02 09:00:00 Anguish present 13:46: [id number] 00 Safety can be left Safety Resolve 2018-102019-10-03 Bimal alone for d 0-02 09:30:00 Anguish only short 13:46: [id number] periods 00 Balance/End balance/assessment coordinator PT/OT: Active 2018-10 Bimal urance rdination Balance/En 0-02 Anguish deficit durance 13:46: [id number] 00 Balance/End endurance PT/OT: Active 2018-10 Bimal urance deficit Balance/En 0-02 Anguish durance 13:46: [id number] 00 Equipment prosthesis PT/OT: Active 2018-10 Bimal Mgmt mgmt Equipment 0-02 Anguish deficit Mgmt 13:46: [id number] 00 Gait/Locomo gait PT/OT: Active 2018-10 Bimal tion deficit Gait/Locom 0-02 Anguish problems otion 13:46: [id number] 00 Elimination bowel Eliminatio Resolve 2018-102019-07-24 Adry incontinenc n d 0-15 09:00:00 Ingrahm e 10:00: [id number] 00 Gait/Locomo gait PT/OT: Active 2018-10 Bimal tion assistive Gait/Locom 0-18 Anguish problems device otion 10:20: [id number] present 00 Nutrition nutritional Nutrition Resolve 2018-102019-07-24 Adry restriction d 0-22 09:00:00 Ingrahm s 10:00: [id number] 00 Nutrition nutritional Nutrition Resolve 2018-102019-08-14 Adry restriction d 0-29 09:59:00 Ingrahm s 08:46: [id number] 00 Integument skin Integument Active 2018-10 Velvet [...] ulcer d 2-03 09:30:00 Ingrahm present 09:53: [id number] 00 Integument surgical Integument Resolve 2018-102019-10-03 Adry wound d 2-03 09:30:00 Ingrahm present 09:53: [id number] 00 Integument stasis Integument Resolve 2018-102019-10-03 Maylin ulcer d 2-03 09:30:00 Jefferson present 09:53: [id number] 00 Bed transfer PT/OT: Bed Active 2018-10 Bimal Mobility/Tr deficit: Mobility/T 2-03 Anguish ansfer standing ransfer 11:50: [id number] pivot 00 Bed transfer PT/OT: Bed Active 2018-10 Bimal Mobility/Tr deficit: Mobility/T 2-03 Anguish ansfer toilet/comm ransfer 11:50: [id number] ode 00 Bed transfer PT/OT: Bed Active 2018-10 Bimal Mobility/Tr deficit: Mobility/T 2-03 Anguish ansfer shower/tub ransfer 11:50: [id number] 00 Activity self-care Activity Resolve 2019-10-17 Adry deficit d 10-03 10:00:00 Ingrahm 09:30: [id number] 00 Activity ADL Activity Resolve 2019-10-17 Bimal assistance d 10-07 10:00:00 Anguish required 10:38: [id number] 00 Safety risk for Safety Active Bimal hospitaliza 10-07 Anguish tion 10:38: [id number] 00 Safety can be left Safety Active Adry alone for 10-10 Ingrahm only short 11:20: [id number] periods 00 Activity ADL Activity Active Maylin assistance 10-24 Jefferson required 09:40: [id number] 00 Activity self-care Activity Active Adyr deficit 10-24 Ingrahm 09:40: [id number] 00 Safety fall risk Safety Active Adry factor 10-24 Ingrahm present 09:40: [id number] 00 Allergies, Adverse Reactions, Alerts Allergy Name [...] Unknown am 250 mg am 250 mg 3- MD,May tablet tablet Vital Signs Vital Name Observation Time Observation Value Comments SYSTOLIC mm[Hg] 2019-12-10 18:10:49 142 mm[Hg] mm[Hg] Method: Sit SYSTOLIC mm[Hg] 2019-07-06 18:08:12 130 mm[Hg] mm[Hg] Method: Stand DIASTOLIC mm[Hg] 2019-12-10 18:10:49 74 mm[Hg] mm[Hg] Method: Sit DIASTOLIC mm[Hg] 2019-07-06 18:08:12 90 mm[Hg] mm[Hg] Method: Stand PULSE 2019-12-10 18:10:49 54 /min /min RESP RATE 2019-12-10 18:10:49 16 /min /min TEMP 2019-12-10 18:10:49 97.5 [degF] Procedures This patient has no known procedures. Results This patient has no known results.
--- OUTSIDE RECORDS SUMMARY | 2020-01-07 06:38 | XMS REPORT ---
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, disease, [id number] unspecified unspecified 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 angina angina pectoris pectoris Essential Essential Diagnosis Active Adry (primary) (primary) 1 Ingrahm hypertensio hypertensio [id number] n n Epilepsy, Epilepsy, Diagnosis Active Adry unspecified unspecified 10-01 Ingrahm , not , not [id number] intractable intractable , without , without status status epilepticus epilepticus Enterocolit Enterocolit Diagnosis Active 2018-10 Adry is due to is due to 0-13 Ingrahm Clostridium Clostridium [id number] difficile, difficile, not not specified specified as as recurrent recurrent Raynaud's Raynaud's Diagnosis Active Adry syndrome syndrome Ingrahm without without [id number] gangrene gangrene 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, lymphoma, [id number] unspecified unspecified , , unspecified unspecified site site 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) [id number] (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, seizures, not not intractable intractable , without , without status status epilepticus epilepticus Radiculopat Radiculopat Diagnosis Active Adry hy, lumbar hy, lumbar Ingrahm region region [id number] 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 [id number] [facility] 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 [id number] diseases diseases classified classified elsewhere elsewhere Benign Benign Diagnosis Active Adry prostatic prostatic Ingrahm hyperplasia hyperplasia [id number] without without lower lower urinary urinary tract tract symptoms symptoms 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 [id number] unspecified unspecified sites in sites in spine spine 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, psoriasis, [id number] unspecified unspecified Other Other Diagnosis Active Adry dysphagia dysphagia Ingrahm [id number] 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 [id number] n n 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 s with s with [id number] current current pathologica pathologica l fracture, l fracture, vertebra(e) vertebra(e) , , subsequent subsequent encounter encounter for for fracture fracture with with routine routine healing healing 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 Diagnosis Active Adry (current) (current) Ingrahm use of use of [id number] antithrombo antithrombo tics/antipl tics/antipl atelets atelets group home intermodal dispatcher Diagnosis Active Adry (current) (current) Ingrahm use of use of [id number] antibiotics antibiotics group home intermodal dispatcher Diagnosis Active Adry (current) (current) Ingrahm use of use of [id number] systemic systemic steroids steroids intermodal dispatcher group home Diagnosis Active Adry (current) (current) Ingrahm use of use of [id number] opiate opiate analgesic analgesic Acquired 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 [id number] below knee below knee 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 [id number] Pain frequent Pain Mgmt Resolve 2018-2019-07-18 Grace pain d 0-01 13:00:00 (Pennie) 10:30: Mondragon 00 [id number] Cardio edema Cardiovasc Resolve 2018-102019-07-24 Grace ular d 0-01 09:00:00 (Pennie) 10:30: Mondragon [id number] Respiratory dyspnea Respirator Resolve 2018-102019-07-24 Grace present y d 0-01 09:00:00 (Pennie) 10:30: Mondragon [id number] Endo/David anti-coagul Endo/David Resolve 2018-102019-07-18 Grace ation d 0-01 13:00:00 (Pennie) therapy 10:30: [id number] Integument skin Integument Resolve 2018-102019-07-24 Grace integrity d 0-01 09:00:00 (Pennie) risk 10:30: Mondragon [id number] Elimination urinary Eliminatio Resolve 2018-102019-07-24 Grace incontinenc n d 0-01 09:00:00 (Pennie) e 10:30: [id number] Neuro confusion Neuro/Emot Resolve 2018-102019-09-26 Grace present ion d 0-01 10:25:00 (Pennie) 10:30: [id number] Neuro depressive Neuro/Emot Resolve 2018-102019-09-26 Grace feelings ion d 0-01 10:25:00 (Pennie) present 10:30: Mondragon [id number] Neuro impaired Neuro/Emot Resolve 2018-102019-09-26 Grace decision-ma ion d 0-01 10:25:00 (Pennie) guanako 10:30: [id number] Neuro memory Neuro/Emot Resolve 2018-102019-09-26 Grace deficit ion d 0-01 10:25:00 (Pennie) needing 10:30: Mondragon supervision 00 [id number] Activity ADL Activity Resolve 2018-102019-07-24 Grace assistance d 0-01 09:00:00 (Pennie) required 10:30: Mondragon 00 [id number] Activity self-care Activity Resolve 2018-102019-07-24 Grace deficit d 0-01 09:00:00 (Pennie) 10:30: Mondragon [id number] Safety fall risk Safety Resolve 2018-102019-10-03 Grace factor d 0-01 09:30:00 (Pennie) present 10:30: Mondragon 00 [id number] Safety cannot be Safety Resolve 2018-102019-10-03 Grace left alone d 0-01 09:30:00 (Pennie) 10:30: Mondragon 00 [id number] Safety risk for Safety Resolve 2018-102019-10-03 Grace hospitaliza d 0-01 09:30:00 (Pennie) tion 10:30: Mondragon 00 [id number] Medication oral med Meds Resolve 2018-102019-07-18 Grace assistance d 0-01 13:00:00 (Pennie) required 10:30: Mondragon 00 [id number] Musculoskel transfer Musculoske Resolve 2018-102019-07-24 Grace etal assistance letal d 0-01 09:00:00 (Pennie) required 10:30: Mondragon 00 [id number] Musculoskel requires Musculoske Resolve 2018-102019-07-24 Grace etal human letal d 0-01 09:00:00 (Pennie) assist to 10:30: Mondragon leave home 00 [id number] Nutrition nutritional Nutrition Resolve 2018-102019-07-18 Bimal restriction d 0-02 13:00:00 Anguish s 13:46: [id number] 00 Safety structural Safety Resolve 2018-102019-07-24 Bimal barriers d 0-02 09:00:00 Anguish present 13:46: [id number] 00 Safety can be left Safety Resolve 2018-102019-10-03 Bimal alone for d 0-02 09:30:00 Anguish only short 13:46: [id number] periods 00 Balance/End balance/contestant coordinator PT/OT: Active 2018-10 Bimal urance rdination Balance/En 0-02 Anguish deficit durance 13:46: [id number] 00 Balance/End endurance PT/OT: Active 2018-10 Bimal urance deficit Balance/En 0-02 Anguish durance 13:46: [id number] 00 Equipment prosthesis PT/OT: Active 2018-10 Bimal Mgmt mgmt Equipment 0-02 Anguish deficit Mgmt 13:46: [id number] 00 Gait/Locomo gait PT/OT: Active 2018-10 Bimal tion deficit Gait/Locom 0-02 Anguish problems otion 13:46: [id number] 00 Elimination bowel Eliminatio Resolve 2018-102019-07-24 Adry incontinenc n d 0-15 09:00:00 Ingrahm e 10:00: [id number] 00 Gait/Locomo gait PT/OT: Active 2018-10 Bimal tion assistive Gait/Locom 0-18 Anguish problems device otion 10:20: [id number] present 00 Nutrition nutritional Nutrition Resolve 2018-102019-07-24 Adry restriction d 0-22 09:00:00 Ingrahm s 10:00: [id number] 00 Nutrition nutritional Nutrition Resolve 2018-102019-08-14 Adry restriction d 0-29 09:59:00 Ingrahm s 08:46: [id number] 00 Integument skin Integument Active 2018-10 Velvet integrity 123 Carrier RN risk 12:00: 00 Medication oral med Meds Resolve 2018-102019-09-02 Velvet assistance d 1- 09:53:00 Carrier RN required 12:00: 00 Musculoskel transfer Musculoske Active 2018-10 Velvet etal assistance letal 1-23 Carrier RN required 12:00: 00 Musculoskel requires Musculoske Active 2018-10 Velvet etal human letal 1-23 Carrier RN assist to 12:00: leave home 00 Integument pressure Integument Resolve 2018-102019-10-03 Adry ulcer d 2-03 09:30:00 Ingrahm present 09:53: [id number] 00 Integument surgical Integument Resolve 2018-102019-10-03 Adry wound d 2-03 09:30:00 Ingrahm present 09:53: [id number] 00 Integument stasis Integument Resolve 2018-2019-10-03 Maylin ulcer d 2-03 09:30:00 Jefferson present 09:53: [id number] 00 Bed transfer PT/OT: Bed Active 2018-10 Bimal Mobility/Tr deficit: Mobility/T 2-03 Anguish ansfer standing ransfer 11:50: [id number] pivot 00 Bed transfer PT/OT: Bed Active 2018-10 Bimal Mobility/Tr deficit: Mobility/T 2-03 Anguish ansfer toilet/comm ransfer 11:50: [id number] ode 00 Bed transfer PT/OT: Bed Active 2018-10 Bimal Mobility/Tr deficit: Mobility/T 2- Anguish ansfer shower/tub ransfer 11:50: [id number] 00 Activity self-care Activity Resolve 2019-10-17 Adry deficit d 10-03 10:00:00 Ingrahm 09:30: [id number] 00 Activity ADL Activity Resolve 2019-10-17 Bimal assistance d 10-07 10:00:00 Anguish required 10:38: [id number] 00 Safety risk for Safety Active Bimal hospitaliza 10-07 Anguish tion 10:38: [id number] 00 Safety can be left Safety Active Adry alone for 10-10 Ingrahm only short 11:20: [id number] periods 00 Activity ADL Activity Active Maylin assistance 10-24 Jefferson required 09:40: [id number] 00 Activity self-care Activity Active Adry deficit 10-24 Ingrahm 09:40: [id number] 00 Safety fall risk Safety Active Adry factor 10-24 Ingrahm present 09:40: [id number] 00 Allergies, Adverse Reactions, Alerts Allergy Name [...] Unknown 02-28 clindamycin Base Active Unknown Reaction Liilya Beam Ingredient Unknown 02-28 hydrochlorot Base Active [...] 2018-10 No Castillo Unknown Unknown (pulmonary (pulmonary MD,May [...] Castillo Unknown Unknown 125 mg 125 mg - MD,May capsule capsule magnesium magnesium 2018-10 No [...] Observation Time Observation Value Comments SYSTOLIC mm[Hg] 2019-12-16 18:10:55 148 mm[Hg] mm[Hg] Method: Sit SYSTOLIC mm[Hg] 2019-07-06 18:08:12 130 mm[Hg] mm[Hg] Method: Stand DIASTOLIC mm[Hg] 2019-12-16 18:10:55 60 mm[Hg] mm[Hg] Method: Sit DIASTOLIC mm[Hg] 2019-07-06 18:08:12 90 mm[Hg] mm[Hg] Method: Stand PULSE 2019-12-16 18:10:55 50 /min /min RESP RATE 2019-12-10 18:10:49 16 /min /min TEMP 2019-12-16 18:10:55 98.6 [degF] Procedures This patient has no known procedures. Results This patient has no known results.
--- OUTSIDE RECORDS SUMMARY | 2020-01-07 06:38 | XMS REPORT ---
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, disease, [id number] unspecified unspecified 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 [id number] ramona ramona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 without angina angina pectoris pectoris Essential Essential Diagnosis Active Adry (primary) (primary) 10-01 Ingrahm hypertensio hypertensio [id number] n n Epilepsy, Epilepsy, Diagnosis Active Adry unspecified unspecified 10-01 Ingrahm , not , not [id number] intractable intractable , without , without status status epilepticus epilepticus Enterocolit Enterocolit Diagnosis Active 2018-10 Adry is due to is due to 0-13 Ingrahm Clostridium Clostridium [id number] difficile, difficile, not not specified specified as as recurrent recurrent Raynaud's Raynaud's Diagnosis Active Adry syndrome syndrome Ingrahm without without [id number] gangrene gangrene 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, lymphoma, [id number] unspecified unspecified , , unspecified unspecified site site 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) [id number] (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, seizures, not not intractable intractable , without , without status status epilepticus epilepticus Radiculopat Radiculopat Diagnosis Active Adry hy, lumbar hy, lumbar Ingrahm region region [id number] 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 [id number] [facility] 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 TC147064 diseases diseases classified classified elsewhere elsewhere Benign Benign Diagnosis Active Adry prostatic prostatic Ingrahm hyperplasia hyperplasia [id number] without without lower lower urinary urinary tract tract symptoms symptoms 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 insufficien insufficien cy 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 [id number] unspecified unspecified sites in sites in spine spine 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, psoriasis, CE419627 unspecified unspecified Other Other Diagnosis Active Adry dysphagia dysphagia Ingrahm [id number] 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 [id number] n n 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 s with s with [id number] current current pathologica pathologica l fracture, l fracture, vertebra(e) vertebra(e) , , subsequent subsequent encounter encounter for for fracture fracture with with routine routine healing healing 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 Active Adry (current) (current) Ingrahm use of use of [id number] antithrombo antithrombo tics/antipl tics/antipl atelets atelets custodial extermination inspector Diagnosis Active Adry (current) (current) Ingrahm use of use of [id number] antibiotics antibiotics custodial extermination inspector Diagnosis Active Adry (current) (current) Ingrahm use of use of [id number] systemic systemic steroids steroids extermination inspector custodial Diagnosis Active Adry (current) (current) Ingrahm use of use of [id number] opiate opiate analgesic analgesic 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 [id number] below knee below knee 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 [id number] Pain frequent Pain Mgmt Resolve 2018-2019-07-18 Grace pain d 0-01 13:00:00 (Pennie) 10:30: Mondragon 00 [id number] Cardio edema Cardiovasc Resolve 2018-102019-07-24 Grace ular d 0-01 09:00:00 (Pennie) 10:30: Omndragon [id number] Respiratory dyspnea Respirator Resolve 2018-102019-07-24 Grace present y d 0-01 09:00:00 (Pennie) 10:30: Mondragon [id number] Endo/David anti-coagul Endo/David Resolve 2018-102019-07-18 Grace ation d 0-01 13:00:00 (Pennie) therapy 10:30: [id number] Integument skin Integument Resolve 2018-102019-07-24 Grace integrity d 0-01 09:00:00 (Pennie) risk 10:30: Mondragon [id number] Elimination urinary Eliminatio Resolve 2018-102019-07-24 Grace incontinenc n d 0-01 09:00:00 (Pennie) e 10:30: [id number] Neuro confusion Neuro/Emot Resolve 2018-102019-09-26 Grace present ion d 0-01 10:25:00 (Pennie) 10:30: [id number] Neuro depressive Neuro/Emot Resolve 2018-102019-09-26 Grace feelings ion d 0-01 10:25:00 (Pennie) present 10:30: Mondragon [id number] Neuro impaired Neuro/Emot Resolve 2018-102019-09-26 Grace decision-ma ion d 0-01 10:25:00 (Pennie) guanako 10:30: [id number] Neuro memory Neuro/Emot Resolve 2018-102019-09-26 Grace deficit ion d 0-01 10:25:00 (Pennie) needing 10:30: Mondragon supervision 00 [id number] Activity ADL Activity Resolve 2018-102019-07-24 Grace assistance d 0-01 09:00:00 (Pennie) required 10:30: Mondragon 00 [id number] Activity self-care Activity Resolve 2018-102019-07-24 Grace deficit d 0-01 09:00:00 (Pennie) 10:30: Mondragon [id number] Safety fall risk Safety Resolve 2018-102019-10-03 Grace factor d 0-01 09:30:00 (Pennie) present 10:30: Mondragon 00 [id number] Safety cannot be Safety Resolve 2018-102019-10-03 Grace left alone d 0-01 09:30:00 (Pennie) 10:30: Mondragon 00 [id number] Safety risk for Safety Resolve 2018-102019-10-03 Grace hospitaliza d 0-01 09:30:00 (Pennie) tion 10:30: Mondragon 00 [id number] Medication oral med Meds Resolve 2018-102019-07-18 Grace assistance d 0-01 13:00:00 (Pennie) required 10:30: Mondragon 00 [id number] Musculoskel transfer Musculoske Resolve 2018-102019-07-24 Grace etal assistance letal d 0-01 09:00:00 (Pennie) required 10:30: Mondragon 00 [id number] Musculoskel requires Musculoske Resolve 2018-102019-07-24 Grace etal human letal d 0-01 09:00:00 (Pennie) assist to 10:30: Mondragon leave home 00 [id number] Nutrition nutritional Nutrition Resolve 2018-102019-07-18 Bimal restriction d 0-02 13:00:00 Anguish s 13:46: [id number] 00 Safety structural Safety Resolve 2018-102019-07-24 Bimal barriers d 0-02 09:00:00 Anguish present 13:46: [id number] 00 Safety can be left Safety Resolve 2018-102019-10-03 Bimal alone for d 0-02 09:30:00 Anguish only short 13:46: [id number] periods 00 Balance/End balance/patient flow coordinator PT/OT: Active 2018-10 Bimal urance rdination Balance/En 0-02 Anguish deficit durance 13:46: [id number] 00 Balance/End endurance PT/OT: Active 2018-10 Bimal urance deficit Balance/En 0-02 Anguish durance 13:46: [id number] 00 Equipment prosthesis PT/OT: Active 2018-10 Bimal Mgmt mgmt Equipment 0-02 Anguish deficit Mgmt 13:46: [id number] 00 Gait/Locomo gait PT/OT: Active 2018-10 Bimal tion deficit Gait/Locom 0-02 Anguish problems otion 13:46: [id number] 00 Elimination bowel Eliminatio Resolve 2018-102019-07-24 Adry incontinenc n d 0-15 09:00:00 Ingrahm e 10:00: [id number] 00 Gait/Locomo gait PT/OT: Active 2018-10 Bimal tion assistive Gait/Locom 0-18 Anguish problems device otion 10:20: [id number] present 00 Nutrition nutritional Nutrition Resolve 2018-102019-07-24 Adry restriction d 0-22 09:00:00 Ingrahm s 10:00: [id number] 00 Nutrition nutritional Nutrition Resolve 2018-102019-08-14 Adry restriction d 0-29 09:59:00 Ingrahm s 08:46: [id number] 00 Integument skin Integument Active 2018-10 Velvet [...] ulcer d 2-03 09:30:00 Ingrahm present 09:53: [id number] 00 Integument surgical Integument Resolve 2018-102019-10-03 Adry wound d 2-03 09:30:00 Ingrahm present 09:53: [id number] 00 Integument stasis Integument Resolve 2018-2019-10-03 Maylin ulcer d 2-03 09:30:00 Jefferson present 09:53: [id number] 00 Bed transfer PT/OT: Bed Active 2018-10 Bimal Mobility/Tr deficit: Mobility/T 2-03 Anguish ansfer standing ransfer 11:50: [id number] pivot 00 Bed transfer PT/OT: Bed Active 2018-10 Bimal Mobility/Tr deficit: Mobility/T 2-03 Anguish ansfer toilet/comm ransfer 11:50: [id number] ode 00 Bed transfer PT/OT: Bed Active 2018-10 Bimal Mobility/Tr deficit: Mobility/T 2- Anguish ansfer shower/tub ransfer 11:50: [id number] 00 Activity self-care Activity Resolve 2019-10-17 Adry deficit d 10-03 10:00:00 Ingrahm 09:30: [id number] 00 Activity ADL Activity Resolve 2019-10-17 Bimal assistance d 10-07 10:00:00 Anguish required 10:38: [id number] 00 Safety risk for Safety Active Bimal hospitaliza 10-07 Anguish tion 10:38: [id number] 00 Safety can be left Safety Active Adry alone for 10-10 Ingrahm only short 11:20: [id number] periods 00 Activity ADL Activity Active Maylin assistance 10-24 Jefferson required 09:40: [id number] 00 Activity self-care Activity Active Adry deficit 10-24 Ingrahm 09:40: [id number] 00 Safety fall risk Safety Active Adry factor 10-24 Ingrahm present 09:40: [id number] 00 Allergies, Adverse Reactions, Alerts Allergy Name [...] Observation Time Observation Value Comments SYSTOLIC mm[Hg] 2019-12-11 18:10:50 160 mm[Hg] mm[Hg] Method: Sit SYSTOLIC mm[Hg] 2019-07-06 18:08:12 130 mm[Hg] mm[Hg] Method: Stand DIASTOLIC mm[Hg] 2019-12-11 18:10:50 70 mm[Hg] mm[Hg] Method: Sit DIASTOLIC mm[Hg] 2019-07-06 18:08:12 90 mm[Hg] mm[Hg] Method: Stand PULSE 2019-12-11 18:10:50 46 /min /min RESP RATE 2019-12-10 18:10:49 16 /min /min TEMP 2019-12-11 18:10:50 98.1 [degF] Procedures This patient has no known procedures. Results This patient has no known results.
--- OUTSIDE RECORDS SUMMARY | 2020-01-07 06:38 | XMS REPORT ---
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, disease, [id number] unspecified unspecified 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 angina angina pectoris pectoris Essential Essential Diagnosis Active Adry (primary) (primary) 1 Ingrahm hypertensio hypertensio [id number] n n Epilepsy, Epilepsy, Diagnosis Active Adry unspecified unspecified 10-01 Ingrahm , not , not [id number] intractable intractable , without , without status status epilepticus epilepticus Enterocolit Enterocolit Diagnosis Active 2018-10 Adry is due to is due to 0-13 Ingrahm Clostridium Clostridium [id number] difficile, difficile, not not specified specified as as recurrent recurrent Raynaud's Raynaud's Diagnosis Active Adry syndrome syndrome Ingrahm without without [id number] gangrene gangrene 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, lymphoma, 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 unspecified unspecified , , unspecified unspecified site site 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) [id number] (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, seizures, not not intractable intractable , without , without status status epilepticus epilepticus Radiculopat Radiculopat Diagnosis Active Adry hy, lumbar hy, lumbar Ingrahm region region [id number] 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 [id number] [facility] 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 [id number] diseases diseases classified classified elsewhere elsewhere Benign Benign Diagnosis Active Adry prostatic prostatic Ingrahm hyperplasia hyperplasia [id number] without without lower lower urinary urinary tract tract symptoms symptoms 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 [id number] unspecified unspecified sites in sites in spine spine 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, psoriasis, [id number] unspecified unspecified Other Other Diagnosis Active Adry dysphagia dysphagia Ingrahm [id number] 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 [id number] n n 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 s with s with [id number] current current pathologica pathologica l fracture, l fracture, vertebra(e) vertebra(e) , , subsequent subsequent encounter encounter for for fracture fracture with with routine routine healing healing 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 Active Adry (current) (current) Ingrahm use of use of [id number] antithrombo antithrombo tics/antipl tics/antipl atelets atelets [facility] bed bug 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 Diagnosis Active Adry (current) (current) Ingrahm use of use of [id number] antibiotics antibiotics [facility] bed bug 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 Diagnosis Active Adry (current) (current) Ingrahm use of use of [id number] systemic systemic steroids steroids bed bug 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 [facility] Diagnosis Active Adry (current) (current) Ingrahm use of use of [id number] opiate opiate analgesic analgesic 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 [id number] below knee below knee 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 [id number] Pain frequent Pain Mgmt Resolve 2018-2019-07-18 Grace pain d 0-01 13:00:00 (Pennie) 10:30: Mondragon 00 [id number] Cardio edema Cardiovasc Resolve 2018-102019-07-24 Grace ular d 0-01 09:00:00 (Pennie) 10:30: Mondragon [id number] Respiratory dyspnea Respirator Resolve 2018-102019-07-24 Grace present y d 0-01 09:00:00 (Pennie) 10:30: Mondragon [id number] Endo/David anti-coagul Endo/David Resolve 2018-102019-07-18 Grace ation d 0-01 13:00:00 (Pennie) therapy 10:30: [id number] Integument skin Integument Resolve 2018-102019-07-24 Grace integrity d 0-01 09:00:00 (Pennie) risk 10:30: Mondragon [id number] Elimination urinary Eliminatio Resolve 2018-102019-07-24 Grace incontinenc n d 0-01 09:00:00 (Pennie) e 10:30: [id number] Neuro confusion Neuro/Emot Resolve 2018-102019-09-26 Grace present ion d 0-01 10:25:00 (Pennie) 10:30: [id number] Neuro depressive Neuro/Emot Resolve 2018-102019-09-26 Grace feelings ion d 0-01 10:25:00 (Pennie) present 10:30: Mondragon [id number] Neuro impaired Neuro/Emot Resolve 2018-102019-09-26 Grace decision-ma ion d 0-01 10:25:00 (Pennie) guanako 10:30: [id number] Neuro memory Neuro/Emot Resolve 2018-102019-09-26 Grace deficit ion d 0-01 10:25:00 (Pennie) needing 10:30: Mondragon supervision 00 [id number] Activity ADL Activity Resolve 2018-102019-07-24 Grace assistance d 0-01 09:00:00 (Pennie) required 10:30: Mondragon 00 [id number] Activity self-care Activity Resolve 2018-102019-07-24 Grace deficit d 0-01 09:00:00 (Pennie) 10:30: Mondragon [id number] Safety fall risk Safety Resolve 2018-102019-10-03 Grace factor d 0-01 09:30:00 (Pennie) present 10:30: Mondragon 00 [id number] Safety cannot be Safety Resolve 2018-102019-10-03 Grace left alone d 0-01 09:30:00 (Pennie) 10:30: Mondragon 00 [id number] Safety risk for Safety Resolve 2018-102019-10-03 Grace hospitaliza d 0-01 09:30:00 (Pennie) tion 10:30: Mondragon 00 [id number] Medication oral med Meds Resolve 2018-102019-07-18 Grace assistance d 0-01 13:00:00 (Pennie) required 10:30: Mondragon 00 [id number] Musculoskel transfer Musculoske Resolve 2018-102019-07-24 Grace etal assistance letal d 0-01 09:00:00 (Pennie) required 10:30: Mondragon 00 [id number] Musculoskel requires Musculoske Resolve 2018-102019-07-24 Grace etal human letal d 0-01 09:00:00 (Pennie) assist to 10:30: Mondragon leave home 00 [id number] Nutrition nutritional Nutrition Resolve 2018-102019-07-18 Bimal restriction d 0-02 13:00:00 Anguish s 13:46: [id number] 00 Safety structural Safety Resolve 2018-102019-07-24 Bimal barriers d 0-02 09:00:00 Anguish present 13:46: [id number] 00 Safety can be left Safety Resolve 2018-102019-10-03 Bimal alone for d 0-02 09:30:00 Anguish only short 13:46: [id number] periods 00 Balance/End balance/loss prevention coordinator PT/OT: Active 2018-10 Bimal urance rdination Balance/En 0-02 Anguish deficit durance 13:46: [id number] 00 Balance/End endurance PT/OT: Active 2018-10 Bimal urance deficit Balance/En 0-02 Anguish durance 13:46: [id number] 00 Equipment prosthesis PT/OT: Active 2018-10 Bimal Mgmt mgmt Equipment 0-02 Anguish deficit Mgmt 13:46: [id number] 00 Gait/Locomo gait PT/OT: Active 2018-10 Bimal tion deficit Gait/Locom 0-02 Anguish problems otion 13:46: [id number] 00 Elimination bowel Eliminatio Resolve 2018-102019-07-24 Adry incontinenc n d 0-15 09:00:00 Ingrahm e 10:00: [id number] 00 Gait/Locomo gait PT/OT: Active 2018-10 Bimal tion assistive Gait/Locom 0-18 Anguish problems device otion 10:20: [id number] present 00 Nutrition nutritional Nutrition Resolve 2018-102019-07-24 Adry restriction d 0-22 09:00:00 Ingrahm s 10:00: [id number] 00 Nutrition nutritional Nutrition Resolve 2018-102019-08-14 Adry restriction d 0-29 09:59:00 Ingrahm s 08:46: [id number] 00 Integument skin Integument Active 2018-10 Velvet [...] ulcer d 2-03 09:30:00 Ingrahm present 09:53: [id number] 00 Integument surgical Integument Resolve 2018-102019-10-03 Adry wound d 2-03 09:30:00 Ingrahm present 09:53: [id number] 00 Integument stasis Integument Resolve 2018-2019-10-03 Maylin ulcer d 2-03 09:30:00 Jefferson present 09:53: [id number] 00 Bed transfer PT/OT: Bed Active 2018-10 Bimal Mobility/Tr deficit: Mobility/T 2-03 Anguish ansfer standing ransfer 11:50: [id number] pivot 00 Bed transfer PT/OT: Bed Active 2018-10 Bimal Mobility/Tr deficit: Mobility/T 2-03 Anguish ansfer toilet/comm ransfer 11:50: [id number] ode 00 Bed transfer PT/OT: Bed Active 2018-10 Bimal Mobility/Tr deficit: Mobility/T 2- Anguish ansfer shower/tub ransfer 11:50: [id number] 00 Activity self-care Activity Resolve 2019-10-17 Adry deficit d 10-03 10:00:00 Ingrahm 09:30: [id number] 00 Activity ADL Activity Resolve 2019-10-17 Bimal assistance d 10-07 10:00:00 Anguish required 10:38: [id number] 00 Safety risk for Safety Active Bimal hospitaliza 10-07 Anguish tion 10:38: [id number] 00 Safety can be left Safety Active Adry alone for 10-10 Ingrahm only short 11:20: [id number] periods 00 Activity ADL Activity Active Maylin assistance 10-24 Jefferson required 09:40: [id number] 00 Activity self-care Activity Active Adry deficit 10-24 Ingrahm 09:40: [id number] 00 Safety fall risk Safety Active Adry factor 10-24 Ingrahm present 09:40: [id number] 00 Allergies, Adverse Reactions, Alerts Allergy Name [...]
--- OUTSIDE RECORDS SUMMARY | 2020-01-07 06:38 | XMS REPORT ---
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, disease, [id number] unspecified unspecified 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 [id number] [place]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 without angina angina pectoris pectoris Essential Essential Diagnosis Active Adry (primary) (primary) 1 Ingrahm hypertensio hypertensio [id number] n n Epilepsy, Epilepsy, Diagnosis Active Adry unspecified unspecified 10-01 Ingrahm , not , not [id number] intractable intractable , without , without status status epilepticus epilepticus Enterocolit Enterocolit Diagnosis Active 2018-10 Adry is due to is due to 0-13 Ingrahm Clostridium Clostridium [id number] difficile, difficile, not not specified specified as as recurrent recurrent Raynaud's Raynaud's Diagnosis Active Adry syndrome syndrome Ingrahm without without [id number] gangrene gangrene 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, lymphoma, [id number] unspecified unspecified , , unspecified unspecified site site 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) [id number] (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, seizures, not not intractable intractable , without , without status status epilepticus epilepticus Radiculopat Radiculopat Diagnosis Active Adry hy, lumbar hy, lumbar Ingrahm region region [id number] 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 [id number] [facility] 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 [id number] diseases diseases classified classified elsewhere elsewhere Benign Benign Diagnosis Active Adry prostatic prostatic Ingrahm hyperplasia hyperplasia [id number] without without lower lower urinary urinary tract tract symptoms symptoms 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 [id number] insufficien insufficien cy 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 [id number] unspecified unspecified sites in sites in spine spine 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, psoriasis, [id number] unspecified unspecified Other Other Diagnosis Active Adry dysphagia dysphagia Ingrahm [id number] 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 [id number] n n 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 s with s with [id number] current current pathologica pathologica l fracture, l fracture, vertebra(e) vertebra(e) , , subsequent subsequent encounter encounter for for fracture fracture with with routine routine healing healing 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 Diagnosis Active Adry (current) (current) Ingrahm use of use of [id number] antithrombo antithrombo tics/antipl tics/antipl atelets atelets [facility] piece jobber Diagnosis Active Adry (current) (current) Ingrahm use of use of [id number] antibiotics antibiotics FDC piece jobber Diagnosis Active Adry (current) (current) Ingrahm use of use of [id number] systemic systemic steroids steroids piece jobber FDC Diagnosis Active Adry (current) (current) Ingrahm use of use of [id number] opiate opiate analgesic analgesic 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 [id number] below knee below knee 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 [id number] Pain frequent Pain Mgmt Resolve 2018-2019-07-18 Grace pain d 0-01 13:00:00 (Pennie) 10:30: Mondragon 00 [id number] Cardio edema Cardiovasc Resolve 2018-102019-07-24 Grace ular d 0-01 09:00:00 (Pennie) 10:30: Mondragon [id number] Respiratory dyspnea Respirator Resolve 2018-102019-07-24 Grace present y d 0-01 09:00:00 (Pennie) 10:30: Mondragon [id number] Endo/David anti-coagul Endo/David Resolve 2018-102019-07-18 Grace ation d 0-01 13:00:00 (Pennie) therapy 10:30: [id number] Integument skin Integument Resolve 2018-102019-07-24 Grace integrity d 0-01 09:00:00 (Pennie) risk 10:30: Mondragon [id number] Elimination urinary Eliminatio Resolve 2018-102019-07-24 Grace incontinenc n d 0-01 09:00:00 (Pennie) e 10:30: [id number] Neuro confusion Neuro/Emot Resolve 2018-102019-09-26 Grace present ion d 0-01 10:25:00 (Pennie) 10:30: [id number] Neuro depressive Neuro/Emot Resolve 2018-102019-09-26 Grace feelings ion d 0-01 10:25:00 (Pennie) present 10:30: Mondragon [id number] Neuro impaired Neuro/Emot Resolve 2018-102019-09-26 Grace decision-ma ion d 0-01 10:25:00 (Pennie) guanako 10:30: [id number] Neuro memory Neuro/Emot Resolve 2018-102019-09-26 Grace deficit ion d 0-01 10:25:00 (Pennie) needing 10:30: Mondragon supervision 00 [id number] Activity ADL Activity Resolve 2018-102019-07-24 Grace assistance d 0-01 09:00:00 (Pennie) required 10:30: Mondragon 00 [id number] Activity self-care Activity Resolve 2018-102019-07-24 Grace deficit d 0-01 09:00:00 (Pennie) 10:30: Mondragon [id number] Safety fall risk Safety Resolve 2018-102019-10-03 Grace factor d 0-01 09:30:00 (Pennie) present 10:30: Mondragon 00 [id number] Safety cannot be Safety Resolve 2018-102019-10-03 Grace left alone d 0-01 09:30:00 (Pennie) 10:30: Mondragon 00 [id number] Safety risk for Safety Resolve 2018-102019-10-03 Grace hospitaliza d 0-01 09:30:00 (Pennie) tion 10:30: Mondragon 00 [id number] Medication oral med Meds Resolve 2018-102019-07-18 Grace assistance d 0-01 13:00:00 (Pennie) required 10:30: Mondragon 00 [id number] Musculoskel transfer Musculoske Resolve 2018-102019-07-24 Grace etal assistance letal d 0-01 09:00:00 (Pennie) required 10:30: Mondragon 00 [id number] Musculoskel requires Musculoske Resolve 2018-102019-07-24 Grace etal human letal d 0-01 09:00:00 (Pennie) assist to 10:30: Mondragon leave home 00 [id number] Nutrition nutritional Nutrition Resolve 2018-102019-07-18 Bimal restriction d 0-02 13:00:00 Anguish s 13:46: [id number] 00 Safety structural Safety Resolve 2018-102019-07-24 Bimal barriers d 0-02 09:00:00 Anguish present 13:46: [id number] 00 Safety can be left Safety Resolve 2018-102019-10-03 Bimal alone for d 0-02 09:30:00 Anguish only short 13:46: [id number] periods 00 Balance/End balance/pool coordinator PT/OT: Active 2018-10 Bimal urance rdination Balance/En 0-02 Anguish deficit durance 13:46: [id number] 00 Balance/End endurance PT/OT: Active 2018-10 Bimal urance deficit Balance/En 0-02 Anguish durance 13:46: [id number] 00 Equipment prosthesis PT/OT: Active 2018-10 Bimal Mgmt mgmt Equipment 0-02 Anguish deficit Mgmt 13:46: [id number] 00 Gait/Locomo gait PT/OT: Active 2018-10 Bimal tion deficit Gait/Locom 0-02 Anguish problems otion 13:46: [id number] 00 Elimination bowel Eliminatio Resolve 2018-102019-07-24 Adry incontinenc n d 0-15 09:00:00 Ingrahm e 10:00: [id number] 00 Gait/Locomo gait PT/OT: Active 2018-10 Bimal tion assistive Gait/Locom 0-18 Anguish problems device otion 10:20: [id number] present 00 Nutrition nutritional Nutrition Resolve 2018-102019-07-24 Adry restriction d 0-22 09:00:00 Ingrahm s 10:00: [id number] 00 Nutrition nutritional Nutrition Resolve 2018-102019-08-14 Adry restriction d 0-29 09:59:00 Ingrahm s 08:46: [id number] 00 Integument skin Integument Active 2018-10 Velvet [...] ulcer d 2-03 09:30:00 Ingrahm present 09:53: [id number] 00 Integument surgical Integument Resolve 2018-102019-10-03 Adry wound d 2-03 09:30:00 Ingrahm present 09:53: [id number] 00 Integument stasis Integument Resolve 2018-2019-10-03 Maylin ulcer d 2-03 09:30:00 Jefferson present 09:53: [id number] 00 Bed transfer PT/OT: Bed Active 2018-10 Bimal Mobility/Tr deficit: Mobility/T 2-03 Anguish ansfer standing ransfer 11:50: [id number] pivot 00 Bed transfer PT/OT: Bed Active 2018-10 Bimal Mobility/Tr deficit: Mobility/T 2-03 Anguish ansfer toilet/comm ransfer 11:50: [id number] ode 00 Bed transfer PT/OT: Bed Active 2018-10 Bimal Mobility/Tr deficit: Mobility/T 2- Anguish ansfer shower/tub ransfer 11:50: [id number] 00 Activity self-care Activity Resolve 2019-10-17 Adry deficit d 10-03 10:00:00 Ingrahm 09:30: [id number] 00 Activity ADL Activity Resolve 2019-10-17 Bimal assistance d 10-07 10:00:00 Anguish required 10:38: [id number] 00 Safety risk for Safety Active Bimal hospitaliza 10-07 Anguish tion 10:38: [id number] 00 Safety can be left Safety Active Adry alone for 10-10 Ingrahm only short 11:20: [id number] periods 00 Activity ADL Activity Active Maylin assistance 10-24 Jefferson required 09:40: [id number] 00 Activity self-care Activity Active Adry deficit 10-24 Ingrahm 09:40: [id number] 00 Safety fall risk Safety Active Adry factor 10-24 Ingrahm present 09:40: [id number] 00 Allergies, Adverse Reactions, Alerts Allergy Name [...]
--- OUTSIDE RECORDS SUMMARY | 2020-01-07 06:38 | XMS REPORT ---
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, disease, [id number] unspecified unspecified 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 Essential Essential Diagnosis Active Adry (primary) (primary) 1 Ingrahm hypertensio hypertensio [id number] n n Epilepsy, Epilepsy, Diagnosis Active Adry unspecified unspecified 10-01 Ingrahm , not , not [id number] intractable intractable , without , without status status epilepticus epilepticus Enterocolit Enterocolit Diagnosis Active 2018-10 Adry is due to is due to 0-13 Ingrahm Clostridium Clostridium [id number] difficile, difficile, not not specified specified as as recurrent recurrent Raynaud's Raynaud's Diagnosis Active Adry syndrome syndrome Ingrahm without without [id number] gangrene gangrene 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, lymphoma, [id number] unspecified unspecified , , unspecified unspecified site site 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) [id number] (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, seizures, not not intractable intractable , without , without status status epilepticus epilepticus Radiculopat Radiculopat Diagnosis Active Adry hy, lumbar hy, lumbar Ingrahm region region [id number] 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 [id number] [facility] 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 [id number] diseases diseases classified classified elsewhere elsewhere Benign Benign Diagnosis Active Adry prostatic prostatic Ingrahm hyperplasia hyperplasia [id number] without without lower lower urinary urinary tract tract symptoms symptoms 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 [id number] unspecified unspecified sites in sites in spine spine 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, psoriasis, [id number] unspecified unspecified Other Other Diagnosis Active Adry dysphagia dysphagia Ingrahm [id number] 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 [id number] n n 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 s with s with [id number] current current pathologica pathologica l fracture, l fracture, vertebra(e) vertebra(e) , , subsequent subsequent encounter encounter for for fracture fracture with with routine routine healing healing intermission coordinator intermission coordinator Diagnosis Active Adry (current) (current) Ingrahm use of use of [id number] antithrombo antithrombo tics/antipl tics/antipl atelets atelets detention intermission coordinator Diagnosis Active Adry (current) (current) Ingrahm use of use of [id number] antibiotics antibiotics detention intermission coordinator Diagnosis Active Adry (current) (current) Ingrahm use of use of [id number] systemic systemic steroids steroids intermission coordinator detention Diagnosis Active Adry (current) (current) Ingrahm use of use of [id number] opiate opiate analgesic analgesic 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 [id number] below knee below knee 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 [id number] Pain frequent Pain Mgmt Resolve 2018-2019-07-18 Grace pain d 0-01 13:00:00 (Pennie) 10:30: Mondragon 00 [id number] Cardio edema Cardiovasc Resolve 2018-102019-07-24 Grace ular d 0-01 09:00:00 (Pennie) 10:30: Mondragon [id number] Respiratory dyspnea Respirator Resolve 2018-102019-07-24 Grace present y d 0-01 09:00:00 (Pennie) 10:30: Mondragon [id number] Endo/David anti-coagul Endo/David Resolve 2018-102019-07-18 Grace ation d 0-01 13:00:00 (Pennie) therapy 10:30: [id number] Integument skin Integument Resolve 2018-102019-07-24 Grace integrity d 0-01 09:00:00 (Pennie) risk 10:30: Mondragon [id number] Elimination urinary Eliminatio Resolve 2018-102019-07-24 Grace incontinenc n d 0-01 09:00:00 (Pennie) e 10:30: [id number] Neuro confusion Neuro/Emot Resolve 2018-102019-09-26 Grace present ion d 0-01 10:25:00 (Pennie) 10:30: [id number] Neuro depressive Neuro/Emot Resolve 2018-102019-09-26 Grace feelings ion d 0-01 10:25:00 (Pennie) present 10:30: Mondragon [id number] Neuro impaired Neuro/Emot Resolve 2018-102019-09-26 Grace decision-ma ion d 0-01 10:25:00 (Pennie) guanako 10:30: [id number] Neuro memory Neuro/Emot Resolve 2018-102019-09-26 Grace deficit ion d 0-01 10:25:00 (Pennie) needing 10:30: Mondragon supervision 00 [id number] Activity ADL Activity Resolve 2018-102019-07-24 Grace assistance d 0-01 09:00:00 (Pennie) required 10:30: Mondragon 00 [id number] Activity self-care Activity Resolve 2018-102019-07-24 Grace deficit d 0-01 09:00:00 (Pennie) 10:30: Mondragon [id number] Safety fall risk Safety Resolve 2018-102019-10-03 Grace factor d 0-01 09:30:00 (Pennie) present 10:30: Mondragon 00 [id number] Safety cannot be Safety Resolve 2018-102019-10-03 Grace left alone d 0-01 09:30:00 (Pennie) 10:30: Mondragon 00 [id number] Safety risk for Safety Resolve 2018-102019-10-03 Grace hospitaliza d 0-01 09:30:00 (Pennie) tion 10:30: Mondragon 00 [id number] Medication oral med Meds Resolve 2018-102019-07-18 Grace assistance d 0-01 13:00:00 (Pennie) required 10:30: Mondragon 00 [id number] Musculoskel transfer Musculoske Resolve 2018-102019-07-24 Grace etal assistance letal d 0-01 09:00:00 (Pennie) required 10:30: Mondragon 00 [id number] Musculoskel requires Musculoske Resolve 2018-102019-07-24 Grace etal human letal d 0-01 09:00:00 (Pennie) assist to 10:30: Mondragon leave home 00 [id number] Nutrition nutritional Nutrition Resolve 2018-102019-07-18 Bimal restriction d 0-02 13:00:00 Anguish s 13:46: [id number] 00 Safety structural Safety Resolve 2018-102019-07-24 Bimal barriers d 0-02 09:00:00 Anguish present 13:46: [id number] 00 Safety can be left Safety Resolve 2018-102019-10-03 Bimal alone for d 0-02 09:30:00 Anguish only short 13:46: [id number] periods 00 Balance/End balance/corporate fitness program coordinator PT/OT: Active 2018-10 Bimal urance rdination Balance/En 0-02 Anguish deficit durance 13:46: [id number] 00 Balance/End endurance PT/OT: Active 2018-10 Bimal urance deficit Balance/En 0-02 Anguish durance 13:46: [id number] 00 Equipment prosthesis PT/OT: Active 2018-10 Bimal Mgmt mgmt Equipment 0-02 Anguish deficit Mgmt 13:46: [id number] 00 Gait/Locomo gait PT/OT: Active 2018-10 Bimal tion deficit Gait/Locom 0-02 Anguish problems otion 13:46: [id number] 00 Elimination bowel Eliminatio Resolve 2018-102019-07-24 Adry incontinenc n d 0-15 09:00:00 Ingrahm e 10:00: [id number] 00 Gait/Locomo gait PT/OT: Active 2018-10 Bimal tion assistive Gait/Locom 0-18 Anguish problems device otion 10:20: [id number] present 00 Nutrition nutritional Nutrition Resolve 2018-102019-07-24 Adry restriction d 0-22 09:00:00 Ingrahm s 10:00: [id number] 00 Nutrition nutritional Nutrition Resolve 2018-102019-08-14 Adry restriction d 0-29 09:59:00 Ingrahm s 08:46: [id number] 00 Integument skin Integument Active 2018-10 Velvet integrity 123 Carrier RN risk 12:00: 00 Medication oral med Meds Resolve 2018-102019-09-02 Velvet assistance d 1- 09:53:00 Carrier RN required 12:00: 00 Musculoskel transfer Musculoske Active 2018-10 Velvet etal assistance letal 1-23 Carrier RN required 12:00: 00 Musculoskel requires Musculoske Active 2018-10 Velevt etal human letal 1-23 Carrier RN assist to 12:00: leave home 00 Integument pressure Integument Resolve 2018-102019-10-03 Adry ulcer d 2-03 09:30:00 Ingrahm present 09:53: [id number] 00 Integument surgical Integument Resolve 2018-102019-10-03 Adry wound d 2-03 09:30:00 Ingrahm present 09:53: [id number] 00 Integument stasis Integument Resolve 2018-2019-10-03 Maylin ulcer d 2-03 09:30:00 Jefferson present 09:53: [id number] 00 Bed transfer PT/OT: Bed Active 2018-10 Bimal Mobility/Tr deficit: Mobility/T 2-03 Anguish ansfer standing ransfer 11:50: [id number] pivot 00 Bed transfer PT/OT: Bed Active 2018-10 Bimal Mobility/Tr deficit: Mobility/T 2-03 Anguish ansfer toilet/comm ransfer 11:50: [id number] ode 00 Bed transfer PT/OT: Bed Active 2018-10 Bimal Mobility/Tr deficit: Mobility/T 2- Anguish ansfer shower/tub ransfer 11:50: [id number] 00 Activity self-care Activity Resolve 2019-10-17 Adry deficit d 10-03 10:00:00 Ingrahm 09:30: [id number] 00 Activity ADL Activity Resolve 2019-10-17 Bimal assistance d 10-07 10:00:00 Anguish required 10:38: [id number] 00 Safety risk for Safety Active Bimal hospitaliza 10-07 Anguish tion 10:38: [id number] 00 Safety can be left Safety Active Adry alone for 10-10 Ingrahm only short 11:20: [id number] periods 00 Activity ADL Activity Active Maylin assistance 10-24 Jefferson required 09:40: [id number] 00 Activity self-care Activity Active Adry deficit 10-24 Ingrahm 09:40: [id number] 00 Safety fall risk Safety Active Adry factor 10-24 Ingrahm present 09:40: [id number] 00 Allergies, Adverse Reactions, Alerts Allergy Name [...]
--- OUTSIDE RECORDS SUMMARY | 2020-01-07 06:38 | XMS REPORT ---
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, disease, [id number] unspecified unspecified 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 [id number] [place]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 without angina angina pectoris pectoris Essential Essential Diagnosis Active Adry (primary) (primary) 1 Ingrahm hypertensio hypertensio [id number] n n Epilepsy, Epilepsy, Diagnosis Active Adry unspecified unspecified 10-01 Ingrahm , not , not [id number] intractable intractable , without , without status status epilepticus epilepticus Enterocolit Enterocolit Diagnosis Active 2018-10 Adry is due to is due to 0-13 Ingrahm Clostridium Clostridium [id number] difficile, difficile, not not specified specified as as recurrent recurrent Raynaud's Raynaud's Diagnosis Active Adry syndrome syndrome Ingrahm without without [id number] gangrene gangrene 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, lymphoma, [id number] unspecified unspecified , , unspecified unspecified site site 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) [id number] (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, seizures, not not intractable intractable , without , without status status epilepticus epilepticus Radiculopat Radiculopat Diagnosis Active Adry hy, lumbar hy, lumbar Ingrahm region region [id number] 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 [id number] [facility] 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 [id number] diseases diseases classified classified elsewhere elsewhere Benign Benign Diagnosis Active Adry prostatic prostatic Ingrahm hyperplasia hyperplasia [id number] without without lower lower urinary urinary tract tract symptoms symptoms 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 [id number] insufficien insufficien cy 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 [id number] unspecified unspecified sites in sites in spine spine 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, psoriasis, [id number] unspecified unspecified Other Other Diagnosis Active Adry dysphagia dysphagia Ingrahm [id number] 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 [id number] n n 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 s with s with [id number] current current pathologica pathologica l fracture, l fracture, vertebra(e) vertebra(e) , , subsequent subsequent encounter encounter for for fracture fracture with with routine routine healing healing rodent 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 rodent 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 Diagnosis Active Adry (current) (current) Ingrahm use of use of [id number] antithrombo antithrombo tics/antipl tics/antipl atelets atelets prison rodent 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 Diagnosis Active Adry (current) (current) Ingrahm use of use of [id number] antibiotics antibiotics prison rodent 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 Diagnosis Active Adry (current) (current) Ingrahm use of use of [id number] systemic systemic steroids steroids rodent 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 prison Diagnosis Active Adry (current) (current) Ingrahm use of use of [id number] opiate opiate analgesic analgesic 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 EA051645 below knee below knee 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 [id number] Pain frequent Pain Mgmt Resolve 2018-2019-07-18 Grace pain d 0-01 13:00:00 (Pennie) 10:30: Mondragon 00 [id number] Cardio edema Cardiovasc Resolve 2018-102019-07-24 Grace ular d 0-01 09:00:00 (Pennie) 10:30: Mondragon [id number] Respiratory dyspnea Respirator Resolve 2018-102019-07-24 Grace present y d 0-01 09:00:00 (Pennie) 10:30: Mondragon [id number] Endo/David anti-coagul Endo/David Resolve 2018-102019-07-18 Grace ation d 0-01 13:00:00 (Pennie) therapy 10:30: [id number] Integument skin Integument Resolve 2018-102019-07-24 Grace integrity d 0-01 09:00:00 (Epnnie) risk 10:30: Mondragon [id number] Elimination urinary Eliminatio Resolve 2018-102019-07-24 Grace incontinenc n d 0-01 09:00:00 (Pennie) e 10:30: [id number] Neuro confusion Neuro/Emot Resolve 2018-102019-09-26 Grace present ion d 0-01 10:25:00 (Pennie) 10:30: [id number] Neuro depressive Neuro/Emot Resolve 2018-102019-09-26 Grace feelings ion d 0-01 10:25:00 (Pennie) present 10:30: Mondragon [id number] Neuro impaired Neuro/Emot Resolve 2018-102019-09-26 Grace decision-ma ion d 0-01 10:25:00 (Pennie) guanako 10:30: [id number] Neuro memory Neuro/Emot Resolve 2018-102019-09-26 Grace deficit ion d 0-01 10:25:00 (Pennie) needing 10:30: Mondragon supervision 00 [id number] Activity ADL Activity Resolve 2018-102019-07-24 Grace assistance d 0-01 09:00:00 (Pennie) required 10:30: Mondragon 00 [id number] Activity self-care Activity Resolve 2018-102019-07-24 Grace deficit d 0-01 09:00:00 (Pennie) 10:30: Mondragon [id number] Safety fall risk Safety Resolve 2018-102019-10-03 Grace factor d 0-01 09:30:00 (Pennie) present 10:30: Mondragon 00 [id number] Safety cannot be Safety Resolve 2018-102019-10-03 Grace left alone d 0-01 09:30:00 (Pennie) 10:30: Mondragon 00 [id number] Safety risk for Safety Resolve 2018-102019-10-03 Grace hospitaliza d 0-01 09:30:00 (Pennie) tion 10:30: Mondragon 00 [id number] Medication oral med Meds Resolve 2018-102019-07-18 Grace assistance d 0-01 13:00:00 (Pennie) required 10:30: Mondragon 00 [id number] Musculoskel transfer Musculoske Resolve 2018-102019-07-24 Grace etal assistance letal d 0-01 09:00:00 (Pennie) required 10:30: Mondragon 00 [id number] Musculoskel requires Musculoske Resolve 2018-102019-07-24 Grace etal human letal d 0-01 09:00:00 (Pennie) assist to 10:30: Mondragon leave home 00 [id number] Nutrition nutritional Nutrition Resolve 2018-102019-07-18 Bimal restriction d 0-02 13:00:00 Anguish s 13:46: [id number] 00 Safety structural Safety Resolve 2018-102019-07-24 Bimal barriers d 0-02 09:00:00 Anguish present 13:46: [id number] 00 Safety can be left Safety Resolve 2018-102019-10-03 Bimal alone for d 0-02 09:30:00 Anguish only short 13:46: [id number] periods 00 Balance/End balance/aboriginal education worker coordinator PT/OT: Active 2018-10 Bimal urance rdination Balance/En 0-02 Anguish deficit durance 13:46: [id number] 00 Balance/End endurance PT/OT: Active 2018-10 Bimal urance deficit Balance/En 0-02 Anguish durance 13:46: [id number] 00 Equipment prosthesis PT/OT: Active 2018-10 Bimal Mgmt mgmt Equipment 0-02 Anguish deficit Mgmt 13:46: [id number] 00 Gait/Locomo gait PT/OT: Active 2018-10 Bimal tion deficit Gait/Locom 0-02 Anguish problems otion 13:46: [id number] 00 Elimination bowel Eliminatio Resolve 2018-102019-07-24 Adry incontinenc n d 0-15 09:00:00 Ingrahm e 10:00: [id number] 00 Gait/Locomo gait PT/OT: Active 2018-10 Bimal tion assistive Gait/Locom 0-18 Anguish problems device otion 10:20: [id number] present 00 Nutrition nutritional Nutrition Resolve 2018-102019-07-24 Adry restriction d 0-22 09:00:00 Ingrahm s 10:00: [id number] 00 Nutrition nutritional Nutrition Resolve 2018-102019-08-14 Adry restriction d 0-29 09:59:00 Ingrahm s 08:46: [id number] 00 Integument skin Integument Active 2018-10 Velvet [...] ulcer d 2-03 09:30:00 Ingrahm present 09:53: [id number] 00 Integument surgical Integument Resolve 2018-102019-10-03 Adry wound d 2-03 09:30:00 Ingrahm present 09:53: [id number] 00 Integument stasis Integument Resolve 2018-2019-10-03 Maylin ulcer d 2-03 09:30:00 Jefferson present 09:53: [id number] 00 Bed transfer PT/OT: Bed Active 2018-10 Bimal Mobility/Tr deficit: Mobility/T 2-03 Anguish ansfer standing ransfer 11:50: [id number] pivot 00 Bed transfer PT/OT: Bed Active 2018-10 Bimal Mobility/Tr deficit: Mobility/T 2-03 Anguish ansfer toilet/comm ransfer 11:50: [id number] ode 00 Bed transfer PT/OT: Bed Active 2018-10 Bimal Mobility/Tr deficit: Mobility/T 2- Anguish ansfer shower/tub ransfer 11:50: [id number] 00 Activity self-care Activity Resolve 2019-10-17 Adry deficit d 10-03 10:00:00 Ingrahm 09:30: [id number] 00 Activity ADL Activity Resolve 2019-10-17 Ibmal assistance d 10-07 10:00:00 Anguish required 10:38: [id number] 00 Safety risk for Safety Active Bimal hospitaliza 10-07 Anguish tion 10:38: [id number] 00 Safety can be left Safety Active Adry alone for 10-10 Ingrahm only short 11:20: [id number] periods 00 Activity ADL Activity Active Maylin assistance 10-24 Jefferson required 09:40: [id number] 00 Activity self-care Activity Active Adry deficit 10-24 Ingrahm 09:40: [id number] 00 Safety fall risk Safety Active Adry factor 10-24 Ingrahm present 09:40: [id number] 00 Allergies, Adverse Reactions, Alerts Allergy Name [...]
--- OUTSIDE RECORDS SUMMARY | 2020-01-07 06:38 | XMS REPORT ---
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 0- Ingrahm ulcer of ulcer of [id number] other part other part of left of left foot foot limited to limited to breakdown breakdown of skin of skin Peripheral Peripheral Diagnosis Active Adry vascular vascular 10-01 Ingrahm disease, disease, [id number] unspecified unspecified 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 [id number] [place]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 without angina angina pectoris pectoris Essential Essential Diagnosis Active Adry (primary) (primary) 1 Ingrahm hypertensio hypertensio [id number] n n 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 Ingrahm [id number] Enterocolit Enterocolit Diagnosis Active 2018-10 Adry is due to is due to 0-13 Ingrahm Clostridium Clostridium [id number] difficile, difficile, not not specified specified as as recurrent recurrent Raynaud's Raynaud's Diagnosis Active Adry syndrome syndrome Ingrahm without without [id number] gangrene gangrene 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, lymphoma, [id number] unspecified unspecified , , unspecified unspecified site site 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) [id number] (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, seizures, not not intractable intractable , without , without status status epilepticus epilepticus Radiculopat Radiculopat Diagnosis Active Adry hy, lumbar hy, lumbar Ingrahm region region [id number] 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 [id number] 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 [id number] diseases diseases classified classified elsewhere elsewhere Benign Benign Diagnosis Active Adry prostatic prostatic Ingrahm hyperplasia hyperplasia [id number] without without lower lower urinary urinary tract tract symptoms symptoms 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 [id number] insufficien insufficien cy 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 [id number] unspecified unspecified sites in sites in spine spine 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, psoriasis, [id number] unspecified unspecified Other Other Diagnosis Active Adry dysphagia dysphagia Ingrahm [id number] 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 [id number] n n 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 s with s with [id number] current current pathologica pathologica l fracture, l fracture, vertebra(e) vertebra(e) , , subsequent subsequent encounter encounter for for fracture fracture with with routine routine healing healing 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 Active Adry (current) (current) Ingrahm use of use of [id number] antithrombo antithrombo tics/antipl tics/antipl atelets atelets senior care senior care Diagnosis Active Adry (current) (current) Ingrahm use of use of [id number] antibiotics antibiotics terminal superintendent senior care Diagnosis Active Adry (current) (current) Ingrahm use of use of [id number] systemic systemic steroids steroids 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 Active Adry (current) (current) Ingrahm use of use of [id number] opiate opiate analgesic analgesic 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 [id number] below knee below knee Personal Personal Diagnosis Active Adry history of history of Ingrahm nicotine nicotine [id number] dependence dependence Pain frequent Pain Mgmt Resolve 2018-102019-07-18 Grace pain d 0-01 13:00:00 (Pennie) 10:30: Mondragon 00 [id number] Cardio edema Cardiovasc Resolve 2018-102019-07-24 Grace ular d 0-01 09:00:00 (Pennie) 10:30: Mondragon 00 [id number] Respiratory dyspnea Respirator Resolve 2018-102019-07-24 Grace present y d 0-01 09:00:00 (Pennie) 10:30: Mondragon 00 [id number] Endo/David anti-coagul Endo/David Resolve 2018-102019-07-18 Grace ation d 0-01 13:00:00 (Pennie) therapy 10:30: Mondragon [id number] Integument skin Integument Resolve 2018-102019-07-24 Grace integrity d 0-01 09:00:00 (Pennie) risk 10:30: Mondragon [id number] Elimination urinary Eliminatio Resolve 2018-102019-07-24 Grace incontinenc n d 0-01 09:00:00 (Pennie) e 10:30: Mondragon 00 [id number] Neuro confusion Neuro/Emot Resolve 2018-102019-09-26 Grace present ion d 0-01 10:25:00 (Pennie) 10:30: Mondragon [id number] Neuro depressive Neuro/Emot Resolve 2018-102019-09-26 Grace feelings ion d 0-01 10:25:00 (Pennie) present 10:30: Mondragon [id number] Neuro impaired Neuro/Emot Resolve 2018-102019-09-26 Grace decision-ma ion d 0-01 10:25:00 (Pennie) guanako 10:30: [id number] Neuro memory Neuro/Emot Resolve 2018-102019-09-26 Grace deficit ion d 0-01 10:25:00 (Pennie) needing 10:30: Mondragon supervision 00 [id number] Activity ADL Activity Resolve 2018-102019-07-24 Grace assistance d 0-01 09:00:00 (Pennie) required 10:30: Mondragon 00 [id number] Activity self-care Activity Resolve 2018-102019-07-24 Grace deficit d 0-01 09:00:00 (Pennie) 10:30: Mondragon 00 [id number] Safety fall risk Safety Resolve 2018-102019-10-03 Grace factor d 0-01 09:30:00 (Pennie) present 10:30: Mondragon [id number] Safety cannot be Safety Resolve 2018-102019-10-03 Grace left alone d 0-01 09:30:00 (Pennie) 10:30: Mondragon [id number] Safety risk for Safety Resolve 2018-102019-10-03 Grace hospitaliza d 0-01 09:30:00 (Pennie) tion 10:30: Mondragon [id number] Medication oral med Meds Resolve 2018-102019-07-18 Grace assistance d 0-01 13:00:00 (Pennie) required 10:30: Mondragon [id number] Musculoskel transfer Musculoske Resolve 2018-102019-07-24 Grace etal assistance letal d 0-01 09:00:00 (Pennie) required 10:30: Mondragon [id number] Musculoskel requires Musculoske Resolve 2018-102019-07-24 Grace etal human letal d 0-01 09:00:00 (Pennie) assist to 10:30: Mondragon leave home 00 [id number] Nutrition nutritional Nutrition Resolve 2018-102019-07-18 Bimal restriction d 0-02 13:00:00 Anguish s 13:46: [id number] 00 Safety structural Safety Resolve 2018-102019-07-24 Bimal barriers d 0-02 09:00:00 Anguish present 13:46: [id number] 00 Safety can be left Safety Resolve 2018-102019-10-03 Bimal alone for d 0-02 09:30:00 Anguish only short 13:46: [id number] periods 00 Balance/End balance/after school program coordinator PT/OT: Active 2018-10 Bimal urance rdination Balance/En 0-02 Anguish deficit durance 13:46: [id number] 00 Balance/End endurance PT/OT: Active 2018-10 Bimal urance deficit Balance/En 0-02 Anguish durance 13:46: [id number] 00 Equipment prosthesis PT/OT: Active 2018-10 Bimal Mgmt mgmt Equipment 0-02 Anguish deficit Mgmt 13:46: [id number] 00 Gait/Locomo gait PT/OT: Active 2018-10 Bimal tion deficit Gait/Locom 0-02 Anguish problems otion 13:46: [id number] 00 Elimination bowel Eliminatio Resolve 2018-102019-07-24 Adry incontinenc n d 0-15 09:00:00 Ingrahm e 10:00: [id number] 00 Gait/Locomo gait PT/OT: Active 2018-10 Bimal tion assistive Gait/Locom 0-18 Anguish problems device otion 10:20: [id number] present 00 Nutrition nutritional Nutrition Resolve 2018-102019-07-24 Adry restriction d 0-22 09:00:00 Ingrahm s 10:00: [id number] 00 Nutrition nutritional Nutrition Resolve 2018-102019-08-14 Adry restriction d 0-29 09:59:00 Ingrahm s 08:46: [id number] 00 Integument skin Integument Active 2018-10 Velvet [...] ulcer d 2-03 09:30:00 Ingrahm present 09:53: [id number] 00 Integument surgical Integument Resolve 2018-102019-10-03 Adry wound d 2-03 09:30:00 Ingrahm present 09:53: [id number] 00 Integument stasis Integument Resolve 2018-102019-10-03 Maylin ulcer d 2-03 09:30:00 Jefferson present 09:53: [id number] 00 Bed transfer PT/OT: Bed Active 2018-10 Bimal Mobility/Tr deficit: Mobility/T 2-03 Anguish ansfer standing ransfer 11:50: [id number] pivot 00 Bed transfer PT/OT: Bed Active 2018-10 Bimal Mobility/Tr deficit: Mobility/T 2-03 Anguish ansfer toilet/comm ransfer 11:50: [id number] ode 00 Bed transfer PT/OT: Bed Active 2018-10 Bimal Mobility/Tr deficit: Mobility/T 2-03 Anguish ansfer shower/tub ransfer 11:50: [id number] 00 Activity self-care Activity Resolve 2019-10-17 Adry deficit d 10-03 10:00:00 Ingrahm 09:30: [id number] 00 Activity ADL Activity Resolve 2019-10-17 Bimal assistance d 10-07 10:00:00 Anguish required 10:38: [id number] 00 Safety risk for Safety Active Bimal hospitaliza 10-07 Anguish tion 10:38: [id number] 00 Safety can be left Safety Active Adry alone for 10-10 Ingrahm only short 11:20: [id number] periods 00 Activity ADL Activity Active Maylin assistance 10-24 Jefferson required 09:40: [id number] 00 Activity self-care Activity Active Adry deficit 10-24 Ingrahm 09:40: [id number] 00 Safety fall risk Safety Active Adry factor 10-24 Ingrahm present 09:40: [id number] 00 Allergies, Adverse Reactions, Alerts Allergy Name [...]
[2020-01-07] MEDS ORDERED: KCL 10 MEQ/50 ML IVPREMIX* 10 MEQ/50 ML BAG IV ONE (06:52)
--- NOTE | 2020-01-07 07:13 | ED ---
Progress - Progress Note Progress Note: This patient was signed out from Dr. Klein to Dr. Crook at shift change on at [address] abdomen/pelvis. - Results/Orders Results/Orders: CT Abdomen/Pelvis, as read by radiologist IMPRESSION: 1. Small bowel obstruction with a transition point annotated in the left mid abdomen (see virgen images). 2. Small volume ascites. 3. Osteopenia with compression fractures as above (L1 with an acute appearance at least new from June 2019). 4. Extensive atherosclerotic disease. 5. Prostamegaly. Dr. Crook has reviewed this report. Course/Dx - Course Course Of Treatment: This patient was signed out by Dr. Klein pending CT abdomen/pelvis. CT reveals 1. Small bowel obstruction with a transition point annotated in the left mid abdomen (see virgen images). 2. Small volume ascites. 3. Osteopenia with compression fractures as above (L1 with an acute appearance at least new from June 2019). 4. Extensive atherosclerotic disease. 5. Prostamegaly. Lab results remarkable for WBC of 13.1, sodium of 132, potassium of 3.1, chloride of 99, CRP of 9.19. UA shows trace ketones. Discussed the case with Dr. Donaldson, hospitalist, who accepted the patient for admission. - Diagnoses Provider Diagnoses: Small bowel obstruction - Provider Notifications Discussed Care Of Patient With: Naya Donaldson - hospitalist Time Discussed With Above Provider: 08:22 Instructed by Provider To: Admit As Inpatient Discharge ED - Sign-Out/Discharge Documenting (check all that apply): Patient Departure - Admit to [facility], Receiving Sign-Out Receiving patient FROM: Lou Klein - Discharge Plan Condition: Stable Disposition: ADMITTED TO [facility] - Billing Disposition and Condition Condition: STABLE Disposition: Admitted to [facility] - Attestation Statements Document Initiated by Scribe: Yes Documenting Scribe: Erin Whaley Provider For Whom Ana Lilia is Documenting (Include Credential): DO Ana Lilia Veronica Attestation: Erin Keller, rosioed for Jonny Crook DO on 01/07/20 at 1239. Scribe Documentation Reviewed: Yes Provider Attestation: The documentation as recorded by the Erin layne accurately reflects the service I personally performed and the decisions made by me, Jonny Crook, DO Status of Scribe Document: Viewed
[2020-01-07] MEDS ORDERED: NS 0.9% 1000 ML** 1,000 ML IV ONE (07:57)
[2020-01-07] MEDS ORDERED: HYDROmorphone INJ* 0.5 MG/0.5 ML SYRINGE IV ONE (08:13)
[2020-01-07] MEDS ORDERED: HYDROmorphone INJ1* 1 MG/ML SYRINGE IV PRN (09:39)
--- NOTE | 2020-01-07 10:52 | HP ---
History of Present Illness - History of Present Illness Reason for Visit: Abdominal Pain History of Present Illness: John Togn is a 79 y/o male with history of peripheral artery disease, low grade T-cell lymphoma, possible autonomic dysfunction with alternating hypertension and hypotension, osteoporosis, lumbar radiculopathy, polymyalgia rheumatica on years of steroid, secondary adrenal insufficiency, ?seizure on keppra prophylactically. He presented to [facility] for abdominal pain starting last night after dinner, he was able to take dinner normally, but started to have severe abdominal pain 7/10 and nausea/vomiting after that. Vomitus was food and then turned clear. He thought this is probably because his umbilical hernia protruded out, so he pushed it and he felt it "pop". He had in total two episodes of loose stool last night, but after that more gas/stool passing. He denied fever, shortness of breath, he did have cough after vomiting last night. He has no contact with COVID19 confirmed case, no recent travel or sick contact. Of note, patient complained of acute onset of severe back pain since 1.5 month ago, he tried to not come to hospital due to current pandemic. He was given a higher dose of steroid by Dr. Castillo and on tapering schedule currently (40mg for 2 days, 30mg for 1 day so far. last dose yesterday) In ED, he had NGT inserted, the placement needed to be adjusted according to XR. He was noted to have hypertension with BP up to 200/110mmhg in monitor. Patient and his stated that his bp is very labile, and actually mostly low to even 40s at home, therefore he has a lot of fainty spell, for which he was started on seizure prophylaxis (also had an abnormal EEG) and fludrocortisone. - Past Medical History Past Medical History: 1. Peripheral arterial disease on plavix 2. Anemia of chronic disease 3. 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 Hypertension remotely, now mainly hypotension-? autonomic dysfunction 5. Osteoprosis 6. Lumbar radiculopathy 7. Possible polymyalgia rheumatica on steroid for >10 years, usual dose is 5mg daily 8. Secondary adrenal insufficiency 9. >seizure disorder, on keppra prophylactically 10. Hyponatremia - Past Surgical History Past Surgical History: 1. 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 right rotator cuff repair 3. Bilateral cataracts extraction 4. Left rotator cuff repair 5. Left lateral elbow release 6. Tonsillectomhy 7. Left hydrocele repair - Past Family History Past Family History: According to prev record, mother of old age at 85, father had CVA and PVD. 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 His medical surrogate is his Corinne. He desires to be DNR/DNI. He is a former smoker, he used to drink moderate amount of alcohol but not recently. Medications: Home Medications Medication Instructions Recorded Confirmed Type Finasteride TAB* [Proscar TAB*] 5 mg PO DAILY 04/04/16 01/07/20 History Gabapentin 600 mg PO .NOON 03/25/19 01/07/20 History Multivitamin [Multivitamins] 1 cap PO DAILY 03/25/19 01/07/20 History Atorvastatin Calcium [Lipitor] 40 mg PO DAILY 06/02/19 01/07/20 History Clopidogrel TAB* [Plavix TAB*] 75 mg PO DAILY 06/02/19 01/07/20 History Fludrocortisone Acetate TAB* 0.1 mg PO DAILY 06/02/19 01/07/20 History [Florinef TAB*] Omeprazole 20 mg PO DAILY 06/02/19 01/07/20 History Sildenafil (PULMONARY)(NF) 5 tab PO DAILY 06/02/19 01/07/20 History [Revatio (NF)] Sodium Chloride TAB* 1 gm PO DAILY 06/02/19 01/07/20 History Oxycodone HCl 5 mg PO Q4H PRN 08/18/19 01/07/20 History Potassium Chlor TAB* [Potassium 10 meq PO BID 08/18/19 01/07/20 History Chlor TAB 20 MEQ*] predniSONE 10 mg TAB [Deltasone 10 5 mg PO DAILY 08/18/19 01/07/20 History MG TAB*] Gabapentin TAB(NF) [Neurontin 600 1,200 mg PO QPM 12/09/19 01/07/20 History mg TAB(NF)] Magnesium Oxide TAB* [MagOx 400 400 mg PO BID 12/09/19 01/07/20 History TAB*] Levetiracetam XR TAB(NF) [Keppra 750 mg PO BID 01/07/20 01/07/20 History XR (NF)] Allergies/Adverse Reactions: Allergies Allergy/AdvReac Type Severity Reaction Status Date / Time alendronate sodium Allergy Unknown Verified 01/07/20 04:59 Reaction Details azathioprine Allergy Unknown Verified 01/07/20 04:59 Reaction Details benazepril [From Lotensin] Allergy Unknown Verified 01/07/20 04:59 Reaction Details celecoxib Allergy Hives Verified 01/07/20 04:59 cilostazol Allergy Unknown Verified 01/07/20 04:59 Reaction Details clindamycin Allergy Unknown Verified 01/07/20 04:59 Reaction Details glucosamine Allergy Unknown Verified 01/07/20 04:59 Reaction Details hydrochlorothiazide Allergy Unknown Verified 01/07/20 04:59 [From Dyazide] Reaction Details hydroxychloroquine Allergy See Comment Verified 01/07/20 04:59 methotrexate Allergy See Comment Verified 01/07/20 04:59 morphine Allergy See Comment Verified 01/07/20 04:59 Sulfa (Sulfonamide Allergy See Comment Verified 01/07/20 04:59 Antibiotics) triamterene [From Dyazide] Allergy Unknown Verified 01/07/20 04:59 Reaction Details Review of Systems - Review of Systems Constitutional: Negative: Fever, Chills, Sweats, Weakness, Malaise, Other Eyes: Negative: Pain, Vision Change, Conjunctivae Inflammation, Eyelid Inflammation, Redness, Other ENT: Negative: Ear Pain, Ear Discharge, Nose Pain, Nose Discharge, Nose Congestion, Mouth Pain, Mouth Swelling, Throat Pain, Throat Swelling, Other Respiratory: Positive: Cough Cardiovascular: Negative: Chest Pain, Palpitations, Orthopnea, Paroxysmal Noc. Dyspnea, Edema, Light Headedness, Other Gastrointestinal: Positive: Nausea, Vomiting, Abdominal Pain, Diarrhea. Negative: Constipation, Melena, Hematochezia, Other Genitourinary: Negative: Dysuria, Frequency, Incontinence, Hematuria, Retention , Other Musculoskeletal: Negative: Neck Pain, Shoulder Pain, Arm Pain, Back Pain, Hand Pain, Leg Pain, Foot Pain, Other Skin: Negative: Rash, Lesions, Juan, Bruising, Other Neurological/Mental Status: Negative: Weakness, Numbness, Incoordination, Change in Speech, Confusion, Seizures, Other Exam Vital Signs: Vital Signs (72 hours) 01/07/20 01/07/20 01/07/20 05:00 05:02 05:03 Temperature 97.8 F Pulse Rate 58 57 58 Respiratory 16 Rate Blood Pressure 188/98 201/91 (mmHg) O2 Sat by Pulse 99 99 99 Oximetry 01/07/20 01/07/20 01/07/20 05:25 05:55 06:00 Temperature Pulse Rate 66 58 60 Respiratory 20 Rate Blood Pressure 188/100 196/90 (mmHg) O2 Sat by Pulse 92 97 98 Oximetry 01/07/20 01/07/20 01/07/20 06:25 06:26 07:06 Temperature Pulse Rate 57 73 Respiratory 18 Rate Blood Pressure 193/91 211/100 (mmHg) O2 Sat by Pulse 98 99 Oximetry 01/07/20 01/07/20 01/07/20 07:07 07:22 07:25 Temperature Pulse Rate 72 68 65 Respiratory Rate Blood Pressure 195/95 193/95 (mmHg) O2 Sat by Pulse 99 98 98 Oximetry 01/07/20 01/07/20 01/07/20 07:55 08:00 08:24 Temperature Pulse Rate 66 65 Respiratory Rate Blood Pressure 205/102 199/96 (mmHg) O2 Sat by Pulse 100 97 Oximetry 01/07/20 01/07/20 08:25 08:29 Temperature Pulse Rate 75 Respiratory 24 26 Rate Blood Pressure 204/101 (mmHg) O2 Sat by Pulse Oximetry Exam: GEN: lying 45 degree on bed, not in acute illness HEENT: mucous moist HEART: normal S1,S2, no murmur LUNG: clear on auscultation ABDOMEN: soft, tenderness on LUQ, bowel sound hyperactive, umbilical hernia Extremity: right BKA changes, no edema seen. tenderness to palpation over L1-3 Neurology: alert, oriented x 4, response slow. moving all 4limbs well Result Diagrams: 01/07/20 05:39 01/07/20 05:39 Diagnostic Imaging: CTAP: 1. small bowel obstruction with a transition annotated in the left mid abdomen 2. small volume ascites 3. osteopenia with compression fracture in L1 (acute appearing) 4. prostamegaly Assessment/Plan - Assessment/Plan Assessment: John Tong is a 79 y/o male with history of peripheral artery disease, possible autonomic dysfunction with alternating hypertension and hypotension, osteoprosis, lumbar radiculopathy, polymyalgia rheumatica on years of steroid, secondary adrenal insufficiency, ?seizure on keppra prophylactically, presented to [facility] for acute onset of abdominal pain with N&V since last night, found to have SBO with transition point in mid abd in CTAP. Also he was found to have L1 compression fracture with osteopenia in CTAP with fit his history of acute back pain. Plan: 1. Small Bowel obstruction - cause unclear, no abdominal surgery before - DD: strangulated umbilical hernia, malignancy, ischemic bowel (less likely with no Afib history and lactic acid normal) - NGT suction-NGT needs to be pulled back according to CXR placement check - NPO, pain control acute - IV famotidine for GI prophylaxis - watch bowel movement - surgical consult, Dr. Ray contacted - if not improving with conservative management, need surgery 2. Labile BP - alternating hypertension and hypotension, likely autonomic dysfunction - no chest pain, dizziness, lightheadness now with hypertension - I will not jump to antihypertensive now and monitor another few readings since his BP is mostly low at home - if BP keeps elevated, I will start antihypertensive. - will hold off fluodrocortisone 3. New L1 compression fracture - Acute back pain with new L1 compression fracture found in CT, likely acute compression fracture - vitamin D next blood check - discuss osteoporosis treatment before discharge - 4. Second adrenal insuficiency - on ocean transportation intermediary steroid with recent increase in dose - will continue iv hydrocort 25mg Q8h for now - if patient goes for surgery, need an additional dose of 100mg hydrocort for stress dose 5. ? seizure - convert keprra to iv since npo 6. polyrheumyalgia rheumatia - change to old dose 5mg when out of stress 7. DVT prophylaxis - sc Lovenox Attestation Documenting Resident: Faby Sanchez Supervising Physician: Naya Donaldson Attending/Supervising Physician Comment: Agree with Dr. Sanchez's assessment. SBO of unclear cause; concern given history of low-grade T-cell lymphoma however was not seen on CT. Will aim for conservative management. Case reviewed with Dr. Nisha Castillo. He has not been this hypertensive in the past; suspect related to pain. Will attempt improved pain control and trend his blood pressure. Last colonoscopy was 2010 as part of routine cancer screening, reportedly unremarkable. Plavix indication is for PAD, no stents/bypass etc, so we will hold. Switch all essential PO meds to IV Plan for stress dose steroids, however we may discontinue pending his BP trends , as he is only on prednisone 5mg daily and is hypertensive at this time. Attestation: This service has been performed in part by a resident under the direction of a teaching physician.I, Naya Donaldson, performed the service, or was physically present during the critical, or virgen portions of the service, furnished by the resident. I participated in the management of the patient.
[2020-01-07] MEDS: NS 0.9% w/ 40 Meq KCL 1000 ML* 1,000 ML IV SCH ×2 (11:46→21:59)
[2020-01-07] MEDS: HYDROmorphone INJ* 0.5 MG/0.5 ML SYRINGE IV PRN ×5 (11:49→22:36)
[2020-01-07] MEDS ORDERED: amLODIPine TAB* 5 MG PO ONE (12:24)
[2020-01-07] MEDS: Famotidine IV* 10 MG/ML 2 ML (20 mg) IV SLOW PU SCH (13:59)
[2020-01-07] MEDS: Hydrocortisone INJ* 100 MG/2 ML VIAL (in pyxis) IV SCH ×2 (14:02→19:46)
[2020-01-07] MEDS: levETIRAcetam IV* 750 MG in NS 0.9% 100 ML* 100 ML IVPB SCH (14:03)
[2020-01-07] MEDS: Enoxaparin(*) 40 MG/0.4 ML SYR SUBCUT SCH (14:06)
[2020-01-07 15:02] LABS: BUN/Creatinine Ratio 18.8 (8-20); Calcium 8.5 mg/dL (8.6-10.3); EGFR African American 145.6 (>60); EGFR Non-African American 120.3 (>60); Potassium 3.9 mmol/L (3.5-5.0)
--- NOTE | 2020-01-07 15:13 | CONS ---
CC: Dr. May Castillo; Dr. Arleen Monahan, Vascular Surgery; [facility] CONSULTATION REPORT: DATE OF CONSULT: 01/07/20 LOCATION: The patient was seen in the emergency room. HISTORY OF PRESENT ILLNESS: I was contacted by the Hospitalist Service to evaluate Mr. Tong, an 79-year-old gentleman, who presented to the emergency room with a 1-day history of worsening abdominal pain along with nausea and vomiting. The patient's workup in the emergency room consisted of labs and a CT scan. CT scan was suggestive of small bowel obstruction and our service was consulted. Mr. Tong describes onset of pain yesterday evening. He described it is centrally located, it did radiate to his back, but the patient does suffer with back pain. He has a known umbilical hernia that he reduced and felt a pop hoping that it would give him some pain relief, but it did not. It did not seem to make it worse either. Pain is relieved with narcotics and the patient has had a fair amount of narcotics in the emergency room. Also, lying down is helpful. Aggravating factors are not well described. Pain is constant, at times does radiate to the back, but the patient is dealing with back pain and lumbar radiculopathy for which he was placed on high-dose steroids on Sunday through his primary care physician's office. The patient describes his vomiting as nonbloody. He has had loose bowel movements as recently as yesterday , about 3, these were nonbloody. He denies flatus today. The patient denies any previous similar symptoms. No previous abdominal surgeries. In the emergency room, the patient is noted to be hypertensive with labile blood pressure and is being treated. He is on IV fluids along with K-riders. PAST MEDICAL HISTORY: Peripheral artery disease, status post right BKA for gangrene; low-grade T-cell lymphoma; hypertension; lumbar radiculopathy; polymyalgia rheumatica; seizures and they reported this is secondary to adrenal insufficiency. PAST SURGICAL HISTORY: No abdominal surgeries. Right BKA as described. Other procedures reviewed. He did have a left hydrocele repair. HOME MEDICATIONS: Include: 1. Lipitor. 2. Gabapentin. 3. Potassium. 4. Magnesium. 5. Omeprazole. 6. Sildenafil. 7. Finasteride. 8. Plavix 75 mg daily. 9. Prednisone 10 mg tab that I believe he is on a taper along with oxycodone. ALLERGIES: Allergy list reviewed. FAMILY HISTORY: Noncontributory. No family history of colon cancer. SOCIAL HISTORY: Lives with his , quit smoking in the 70s. 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 REVIEW OF SYSTEMS: No fevers. He has had chills. Nausea and vomiting as described. Some shortness of breath. No chest pain. Back pain that is severe. No dysuria. History of colonoscopy, but does not remember when. No bleeding or clotting disorders, but is on Plavix. He has had vascular workup of the left lower extremity, but no active wounds. PHYSICAL EXAM: Today, he is afebrile, heart rate in the 60s, blood pressure has been as high as 205/102, most recently 148/82, O2 sat 98 on room air. He has an NG tube placed that is not hooked up to suction at this time. After I hooked this up, it did go up to 250 cc of bilious output. The patient is having hiccups that seemed to be resolving towards the end of our evaluation today. Head, Ears, Eyes, Nose, and Throat: Normocephalic, atraumatic. Sclerae anicteric. Mucous membranes are moist. Neck: No lymphadenopathy. Abdomen: Soft, distended, tender on the right side without rebound. A 1 cm umbilical hernia with no contents. No overlying skin changes. No groin incisions or groin hernias. Hypoactive bowel sounds. Back pain that was severe and did not lead to a good CVA evaluation. Rectal exam shows enlarged prostate with loose stool. Guaiac is pending. This was nonbloody on gross examination. Extremities with some vitiligo. Otherwise, no pitting edema in the left lower leg. Healed BKA on the right. DIAGNOSTIC STUDIES/LAB DATA: Labs reviewed and a white count of 13, hematocrit 40 which is above the patient's typical numbers between 28 and 36. Chemistry panel shows a creatinine of 0.69, which is around baseline. Low potassium. Lactate of 1.8. Elevated CRP of 9. Normal lipase. CT scan of the abdomen and pelvis reviewed. Scant free fluid of the liver, dilated small bowel without changes in the mesentery, without pneumatosis or edema. Questionable transition point as per the radiologist. Some air in the colon. No masses. IMPRESSION: An 79-year-old gentleman with a history of peripheral vascular disease, who presents with acute onset of severe abdominal pain that has had some resolution with narcotics and a CT scan consistent with small bowel obstruction without history of previous abdominal surgery, but with reducible umbilical hernia. Differential diagnosis includes umbilical hernia that caused small bowel obstruction or partial small bowel obstruction, abdominal angina with mesenteric arterial insufficiency. No evidence of acute abdomen at this time. Plan is for serial abdominal exams and low threshold to take the patient to the operating room for a diagnostic laparoscopy. I outlined the details of this procedure to him going over the risks and benefits namely with the finding of hernia that we could repair versus finding of ischemic appearing bowel versus negative findings and negative laparoscopy and the possible need for laparotomy. I would rather at this point wait on this patient and give him IV fluids, blood pressure control, n.p.o. status, and continue NG tube. Case was discussed with the Hospitalist Service. No antibiotic is necessary. Labs in the morning. Strict I's and O's and the patient should get Edwards catheter placement. [id number]/CPS #: [id number] [facility]
--- NOTE | 2020-01-07 15:34 | PN ---
Progress Note - Progress Note Date of Service: 01/07/20 SOAP: Subjective: Pt seen and examined at 3pm today. Feeling a little better. want to go home. Just received morphine Objective: Temp Pulse Resp BP Pulse Ox 99.5 F 67 16 180/104 98 01/07/20 13:27 01/07/20 13:27 01/07/20 13:57 01/07/20 13:27 01/07/20 13:27 a and o x3 NGT: no new output abdo: soft/ mild distension/ NT Assessment: pSBO Plan: NPO, NGT serial exams may need umbo hernia repair- can be done as outpt
[2020-01-07] MEDS: KCL 10 MEQ/50 ML IVPREMIX* 10 MEQ/50 ML BAG IV SCH ×3 (16:11→21:37)
[2020-01-07] MEDS: Ondansetron INJ* 2 MG/ML VIAL IV PRN (19:46)
[2020-01-07] MEDS: hydrALAZINE IV* 20 MG/ML VIAL IV SLOW PU PRN (21:17)
[2020-01-08] MEDS: levETIRAcetam IV* 750 MG in NS 0.9% 100 ML* 100 ML IVPB SCH ×2 (00:03→12:10)
[2020-01-08] MEDS: Ondansetron INJ* 2 MG/ML VIAL IV PRN ×2 (00:39→07:35)
[2020-01-08] MEDS: HYDROmorphone INJ* 0.5 MG/0.5 ML SYRINGE IV PRN ×5 (03:22→18:05)
[2020-01-08] MEDS: Hydrocortisone INJ* 100 MG/2 ML VIAL (in pyxis) IV SCH ×3 (03:42→20:48)
[2020-01-08 05:20] LABS: ABS Lymphocytes 0.6 10^3/ul (1.0-4.8); ABS Monocytes 1.3 10^3/ul (0-0.8); ABS Neutrophils 11.4 10^3/ul (1.5-7.7); Hematocrit 42 % (42-52); Hemoglobin 14.3 g/dL (14.0-18.0); Lymphocyte % 4.4 %; Mean Corpuscular HGB Conc 34 g/dL (31-36); Mean Corpuscular Hemoglobin 28 pg (27-31); Mean Corpuscular Volume 82 fL (80-94); Mean Platelet Volume 6.6 fL (7.4-10.4); Nucleated Red Blood Cells % 0.2; Platelet Count 395 10^3/uL (150-450); Red Blood Count 5.14 10^6 /uL (4.18-5.48); Red Cell Distribution Width 16 % (10-15); White Blood Count 13.3 10^3/uL (3.5-10.8)
[2020-01-08 05:50] LABS: Albumin 3.4 g/dL (3.2-5.2); Albumin/Globulin Ratio 0.9 (1-3); BUN/Creatinine Ratio 15.6 (8-20); EGFR African American 117.6 (>60); EGFR Non-African American 97.2 (>60); Globulin 3.6 g/dL (2-4); Potassium 4.5 mmol/L (3.5-5.0)
[2020-01-08] MEDS: NS 0.9% 1000 ML** 1,000 ML IV SCH ×2 (07:35→20:41)
[2020-01-08] MEDS: Famotidine IV* 10 MG/ML 2 ML (20 mg) IV SLOW PU SCH (07:36)
--- NOTE | 2020-01-08 08:42 | PN ---
Subjective Date of Service: 01/08/20 Interval History: Overnight, afebrile. Nurse reported one episode of small bowel movement yesterday. Patient denied any bowel movement this morning, pain controlled. Received micro lab call, one bottle growing G+ cocci, MRSA-, MSSA-. Objective Active Medications: Enoxaparin Sodium (Lovenox(*)) 40 mg SUBCUT Q24H [facility] Last Admin: 01/07/20 14:06 Dose: 40 mg Famotidine (Pepcid Iv*) 20 mg IV SLOW PU DAILY [facility] Last Admin: 01/08/20 07:36 Dose: 20 mg Hydralazine HCl (Apresoline Iv*) 5 mg IV SLOW PU Q6H PRN PRN Reason: SBP>180 Last Admin: 01/07/20 21:17 Dose: 5 mg Hydrocortisone Sodium Succinate (Solu-Cortef*) 25 mg IV Q8H [facility] Last Admin: 01/08/20 03:42 Dose: 25 mg Hydromorphone HCl (Dilaudid Inj*) 0.5 mg IV Q2H PRN PRN Reason: PAIN - SEVERE Last Admin: 01/08/20 07:38 Dose: 0.5 mg Levetiracetam 750 mg/ Sodium (Chloride) 107.5 mls @ 430 mls/hr IVPB Q12H [facility] Last Admin: 01/08/20 00:03 Dose: 430 mls/hr Sodium Chloride (Ns 0.9% 1000 Ml) 1,000 mls @ 100 mls/hr IV PER RATE [facility] Last Admin: 01/08/20 07:35 Dose: 100 mls/hr Cefazolin Sodium/Dextrose (Kefzol 2 Gm Premix In Ors(*)) 2 gm in 50 mls @ 100 mls/hr IVPB Q8H [facility] Ondansetron HCl (Zofran Inj*) 4 mg IV Q4H PRN PRN Reason: NAUSEA Last Admin: 01/08/20 07:35 Dose: 4 mg Vital Signs - 8 hr 01/08/20 01/08/20 01/08/20 01:35 03:22 03:58 Temperature 99.2 F 97.6 F Pulse Rate 81 84 Respiratory 18 20 18 Rate Blood Pressure 176/93 195/118 (mmHg) O2 Sat by Pulse 99 98 Oximetry 01/08/20 01/08/2001/07/20 04:44 07:38 08:09 Temperature 97.8 F Pulse Rate 85 Respiratory 18 18 17 Rate Blood Pressure 150/87 (mmHg) O2 Sat by Pulse 98 Oximetry 01/08/20 08:30 Temperature Pulse Rate Respiratory 18 Rate Blood Pressure (mmHg) O2 Sat by Pulse Oximetry Oxygen Devices in Use Now: None Exam: GEN: lying 45 degree on bed, not in acute illness HEENT: mucous moist HEART: normal S1,S2, no murmur LUNG: clear on auscultation ABDOMEN: soft, tenderness prominent on LUQ, bowel sound hyperactive, umbilical hernia not protruded Extremity: right BKA changes, no edema seen. tenderness to palpation over L1-3 Neurology: alert, oriented x 4, response slow. moving all 4limbs well Result Diagrams: 01/08/20 05:07 01/08/20 05:07 Diagnostic Imaging: CTAP: 1. small bowel obstruction with a transition annotated in the left mid abdomen 2. small volume ascites 3. osteopenia with compression fracture in L1 (acute appearing) 4. prostamegaly Assess/Plan/Problems-Billing Assessment: John Tong is a 79 y/o male with history of PAD, cutaneous T cell lymphoma, possible autonomic dysfunction with alternating hypertension and hypotension, osteoprosis, lumbar radiculopathy, polymyalgia rheumatica on years of steroid, secondary adrenal insufficiency, ?seizure on keppra prophylactically, presented to [facility] [place] for acute onset of abdominal pain with N&V for 1 day, found to have SBO with transition point in mid abd in CTAP, cause unclear. - Patient Problems (1) Small bowel obstruction, partial Current Visit: Yes Status: Acute Code(s): K56.600 - PARTIAL INTESTINAL OBSTRUCTION, UNSPECIFIED TO CAUSE SNOMED Code(s): 560387643 Comment: - partial small bowel obstruction, currently medically managed D3 - unclear cause, no abdominal surgery history, concern of malignancy in view of T cell lymphoma history - repeat AXR today, continue NGT, npo for now - Appreciate surgical team followup (2) Hypertension Current Visit: Yes Status: Acute Code(s): I10 - ESSENTIAL (PRIMARY) HYPERTENSION SNOMED Code(s): 44380291 Comment: - patient had hypertension history remotely, recently alternating hypotension and hypertension ?autonomic dysfunction (was more hypotensive at home, therefore fludrocortisone and Na tablet was started) - however persistent hypertension since admission - iv hydralazine for BP>180mmhg for now since npo (3) Compression fracture of L1 lumbar vertebra Current Visit: Yes Status: Acute Code(s): S32.010A - WEDGE COMPRESSION FRACTURE OF FIRST LUMBAR VERTEBRA, INIT SNOMED Code(s): 983156850 Comment: - acute back pain for 1.5 week with incidental finding in CT, consistent with acute compression fracture - pain control - a/w vitamin D results - need to discuss osteoprosis tx options when acute issues settled. (4) Bacteremia Current Visit: Yes Status: Acute Code(s): R78.81 - BACTEREMIA SNOMED Code( s): 6126868 Comment: - 10/04 growing gram positive cocci, MRSA-, non staph aureus - patient has no fever, no focal infective sx, but does have mild leukocytosis - high risk for infection since he is a decade long chronic steroid user - I do believe that blood cs is skin contamination, however since patient bears high risk for infection/IE with chronic steroid use, I would like to cover empirically with IV ceftriaxone until detailed cs result back (5) Polymyalgia rheumatica Current Visit: No Status: Chronic Code(s): M35.3 - POLYMYALGIA RHEUMATICA SNOMED Code(s): 09781465 Comment: - on chronic pred 5mg, recently increased to higher dose - will keep stress dose iv hydrocort while npo - back to old dose pred 5mg when oralizing (6) Secondary adrenal insufficiency Current Visit: No Status: Chronic Code(s): E27.49 - OTHER ADRENOCORTICAL INSUFFICIENCY SNOMED Code(s): 26884564 Comment: - history, due to chronic steroid use - need additional 100mg hydrocort if patient needs to go for surgery (7) Seizure disorder Current Visit: No Status: Chronic Code(s): G40.909 - EPILEPSY, UNSP, NOT INTRACTABLE, WITHOUT STATUS EPILEPTICUS SNOMED Code(s): 348102723 Comment: - presumptive, eeg neg in the past - continue iv keppra while npo (convert from oral keppra 750mg bid) (8) T-cell lymphoma Current Visit: No Status: Acute Code(s): C85.90 - NON-HODGKIN LYMPHOMA, UNSPECIFIED, UNSPECIFIED SITE SNOMED Code(s): 525866727 Comment: history, was seeing Heme/onco concern of malignant process with his unclear cause of SBO, consider colonoscopy and further eval when resolved (9) DVT prophylaxis Current Visit: Yes Status: Acute Code(s): Z29.9 - ENCOUNTER FOR PROPHYLACTIC MEASURES, UNSPECIFIED SNOMED Code(s): 945901103 Comment: sc lovenox Status and Disposition: Inpatient Medicine. PT assessment Attestation Documenting Resident: Faby Sanchez Supervising Physician: Wilfrido Barron Attending/Supervising Physician Comment: Agree with note as outlined here by Dr. Sanchez unless indicated. SBO not yet resolving. Following along with surgery closely and discussed care together. This service has been performed in part by a resident under the direction of a teaching physician.I, Wilfrido Barron, performed the service, or was physically present during the critical, or virgen portions of the service, furnished by the resident. I participated in the management of the patient. Attestation: This service has been performed in part by a resident under the direction of a teaching physician.IWilfrido, performed the service, or was physically present during the critical, or virgen portions of the service, furnished by the resident. I participated in the management of the patient.
[2020-01-08] MEDS: cefTRIAXone(*) 2 GM in NS 0.9% 100 ML* 100 ML IVPB SCH (08:55)
[2020-01-08] MEDS: Enoxaparin(*) 40 MG/0.4 ML SYR SUBCUT SCH (08:55)
[2020-01-08] MEDS ORDERED: ceFAZolin 2 GM PREMIX in ORs 2 GM/50 ML BAG IVPB SCH (09:00)
--- NOTE | 2020-01-08 10:58 | PN ---
Progress Note - Progress Note Date of Service: 01/08/20 Note: Surgery progress: S: Appears to be having more pain (has had 8 doses of dilaudid 0.5 mg in the last 24 h). He seems more somnolent, but does arouse to direct questions. He does not seem to recall whether he had been passing flatus or stool, though a small BM was recorded from last night. He is holding an emesis bag in front of him, but then subsequently states that he is not nauseated. O: Vital Signs - 8 hr 01/08/20 01/08/20 01/08/20 03:22 03:58 04:44 Temperature 97.6 F Pulse Rate 84 Respiratory 20 18 18 Rate Blood Pressure 195/118 (mmHg) O2 Sat by Pulse 98 Oximetry 01/08/20 01/08/20 01/08/20 07:38 08:00 08:09 Temperature 97.8 F Pulse Rate 85 Respiratory 18 18 17 Rate Blood Pressure 150/87 (mmHg) O2 Sat by Pulse 98 Oximetry 01/08/20 01/08/20 08:30 10:34 Temperature Pulse Rate Respiratory 18 18 Rate Blood Pressure (mmHg) O2 Sat by Pulse Oximetry Intake and Output Last 24 Hours 01/06/20 01/07/20 01/08/20 01/09/20 06:59 06:59 06:59 06:59 Intake Total 1030 Output Total 1325 Balance -295 Weight 142 lb 142 lb Intake: IV Fluids 1030 NS (0.9%) 40 meq KCL 980 Oral 0 Output: NG Tube Drainage Amount 500 Urine 825 Other: Estimated Void Medium Date of Last Bowel 01/07/2020 Movement Estimated Stool Amount Small Small # Voids 1 Gen: NAD, but more somnolent, though arouseable Heart: reg Lungs: clear to ausc Abd: softly distended, tympanitic. BS absent. Mild, diffuse, non-localized tenderness to palp. Umb hernia is reduced; no tenderness Labs: Laboratory Tests 01/08/20 01/08/20 05:07 05:07 WBC 13.3 H Glucose 180 H AXR: moderately distended small bowel loops, c/w ongoing obstruction A: SBO (vs ileus) with some concern for ongoing pain, though most parameters, including exam, not overly concerning (patient also seen by Dr. Guallpa) P: cont current NG decompression, bowel rest, serial exams
--- NOTE | 2020-01-08 11:39 | PN ---
Progress Note - Progress Note Date of Service: 01/08/20 Note: Surgery Progess Note I saw and examined this patient this morning and again recently. I have reviewed with imaging and clinical information. He is an 79 yo M with multiple medical problems including peripheral artery disease (s/p right BKA), osteoporosis, T cell lymphoma, polymyalgia rheumatica on steroids, seizure disorder, acute L1 compression fracture who presented to the ED with abdominal pain yesterday and was found to have a primary small bowel obstruction. He says this morning that his abdominal and back pain (which has been present for the past week) are about the same as yesterday. He denies flatus and BM but per nursing records he had two small BM yesterday. NGT is draining bilious fluid. On physical exam he has a reduced umbilical hernia and a distended abdomen. He is not significantly tender on light and deep palpation diffusely, although he does endorse some pain. He is afebrile and his WBC remains slightly elevated at 13. Of note, he also has GPC present in one blood culture , which may be contaminant but he is being treated empirically with abx. At this time I do not think there is any immediate indication for taking him to the OR for an exploration. I believe he may warrant surgery in order to ascertain the etiology and certainly if he fails to clinically improve in the next day or so. I discussed with primary team, Dr. Sanchez.
--- NOTE | 2020-01-08 11:40 | ECHO ---
*[facility]* [place] [address] Fax #: [phone] Transthoracic Echocardiogram Patient: John Tong : 1940 Study Date: 01/08/2020 Age: 79 Gender: M HR: 93 bpm Height: 74 in /188 cm BSA: 1.88 m^2 Weight: 141.7 lb /64.4 kg BMI: 18.2 kg/m^2 *Payroll Administrator: Daina Bonner [facility] *Referring Physician: * Faby Sanchez *Reading Physician: * Alex Wakefield MD Indications: Bacteremia. History: Pulmonary arteries, T-cell lymphoma. Risk factors: Former tobacco use. Hypertension. Conclusions Summary: - Left ventricle: The cavity size is normal. Wall thickness is mildly to moderately increased. The estimated ejection fraction is 55-60%. - Regional wall motion abnormality: Akinesis of the apical anterior myocardium; hypokinesis of the apical inferior, apical septal, and apical myocardium. - Right ventricle: The cavity size is normal. Systolic function is normal. - Left atrium: The atrium is mildly dilated. - Pulmonic valve: Not visualized. - There is otherwise no functionally significant dysfunction of the mitral, aortic or tricuspid valve and no obvious vegetations noted. Recommendations: Compared to prior study [facility] 08/2019, there was reported to be moderate mitral regurgitation previously and no segmental wall motion abnormalities were noted previously. Study data: Transthoracic echocardiogram. Procedure: Transthoracic echocardiography was performed. Image quality was suboptimal. The study was technically limited due to poor patient compliance and restricted patient mobility. Complete 2D, spectral Doppler, and color flow Doppler. Location: Bedside. Patient status: Inpatient. Patient room number: 334. Rhythm: Normal sinus rhythm. Findings Left ventricle: The cavity size is normal. Wall thickness is mildly to moderately increased. The estimated ejection fraction is 55-60%. Regional wall motion abnormalities: Akinesis of the apical anterior myocardium; hypokinesis of the apical inferior, apical septal, and apical myocardium. There is no consistent Doppler evidence of clinically significant diastolic dysfunction. Right ventricle: The cavity size is normal. Systolic function is normal. Left atrium: The atrium is mildly dilated. Right atrium: The atrium is normal in size. Mitral valve: The leaflets are mildly thickened. There is no evidence of stenosis. There is trace regurgitation. Aortic valve: The leaflets are mildly thickened. There is no evidence of stenosis. There is trace regurgitation. Tricuspid valve: The leaflets are normal thickness. There is no evidence of stenosis. There is no significant regurgitation. Pulmonic valve: Not visualized. Aorta: The aortic root appears normal. The aortic arch appears normal. Pericardium: There is no significant pericardial effusion. Pulmonary arteries: Systolic pressure can not be accurately estimated. Systemic veins: Inferior vena cava: Not well visualized. Measurements Left ventricle Value Ref Right atrium Value Ref RADHA, LAX 4.4 cm 4.2 - 5.8 SI dim, ES 3.5 cm 3.4 - ESD, LAX 3.2 cm 2.5 - 4.0 5.3 FS, LAX 26 % 25 - 43 ML dim, ES, A4C 3.0 cm 2.6 - PW, ED, LAX (H) 1.2 cm 0.6 - 1.0 4.4 E', lat kim, TDI (L) 4.4 cm/sec >=10.0 Estimated RAP 8 mm Hg - ------- E/e', lat kim, 9 TDI Aortic valve Value Ref E', med kim, TDI (L) 3.6 cm/sec >=7.0 Kim diam, ED 2.2 cm - ------- E/e', med kim, 10 Peak v, S 0.87 m/sec ---- ---- TDI VTI, S 12.2 cm -------- E', avg, TDI 4.0 cm/sec Mean grad, S 2.0 mm Hg ---- ---- E/e', avg, TDI 9 <=14 Peak grad, S 3.0 mm Hg - ------- LVOT/AV, VTI ratio 0.74 -------- LVOT Value Ref Peak jose l, S 0.61 m/sec Mitral valve Value Ref VTI, S 9.0 cm Peak E 0.37 m/sec -------- Peak grad, S 1 mm Hg Peak A 0.73 m/sec -------- Mean grad, S 1 mm Hg Decel time 71 ms -------- Peak E/A ratio 0.5 -------- Ventricular septum Value Ref IVS, ED (H) 1.4 cm 0.6 - 1.0 Aortic root Value Ref Root diam 3.2 cm <4.1 Right ventricle Value Ref Root max diam/bsa, 1.7 cm/m^2 1.3 - RADHA minor ax, 2.1 cm 1.9 - 3.5 ED 2.1 A4C mid Aortic arch Value Ref Left atrium Value Ref Arch diam 2.9 cm -------- AP dim, ES (L) 2.80 cm 3.00 - Arch diam/bsa 1.5 cm/m^2 -------- 4.00 ML dim, A4C 2.9 cm Decending aorta Value Ref SI dim, A4C 6.6 cm Antonio peak jose l 0.32 m/sec -------- Vol/bsa, ES, 1-p 18 ml/m^2 12 - 37 A4C Legend: (L) and (H) ash values outside specified reference range. Prepared and electronically signed by Alex Wakefield MD 01/08/2020 11:39
[2020-01-08] MEDS ORDERED: Naloxone* 0.4 MG/ML 1 ML VIAL ONE ×2 (18:49→18:55)
[2020-01-08] MEDS ORDERED: HYDROmorphone INJ1* 1 MG/ML SYRINGE IV SLOW PU ONE (19:23)
[2020-01-08] MEDS ORDERED: HYDROmorphone INJ* 0.5 MG/0.5 ML SYRINGE IV SLOW PU ONE (19:23)
[2020-01-08] MEDS ORDERED: HYDROmorphone INJ* 0.5 MG/0.5 ML SYRINGE ONE (19:25)
[2020-01-08] MEDS ORDERED: levETIRAcetam IV* 1,000 MG in NS 0.9% 100 ML* 100 ML IVPB SCH (19:36)
--- NOTE | 2020-01-08 19:58 | PN ---
Hospitalist Progress Note Date of Service: 01/08/20 CAT call around 1830 for acute unresponsiveness. Found to by hypoxic and hypotensive with fixed gaze and possible slight small horizontal nystagmus. Narcan .5mg x2 given with good effect and signs of acute withdrawal. New T-Wave inversions noted on lateral leads, consistent on repeat EKG. Oxygen applied and O2 saturation found to be very high on 15L Facemask. Patient complaining of generalized pain. Not oriented. Piloerection, diarrhea, tremors noted, consistent with acute opiate withdrawal. Discussed with who states he ahs had numerous episodes like this before that were attributed to seizures. Keppra increased, Lower dose dilaudid IV reintroduced for withdrawal. Labs still pending, signed out to Lida.
[2020-01-08 20:00] LABS: Hematocrit 45 % (42-52); Hemoglobin 14.7 g/dL (14.0-18.0); Mean Corpuscular HGB Conc 33 g/dL (31-36); Mean Corpuscular Hemoglobin 28 pg (27-31); Mean Corpuscular Volume 84 fL (80-94); Mean Platelet Volume 6.8 fL (7.4-10.4); Platelet Count 408 10^3/uL (150-450); Red Blood Count 5.34 10^6 /uL (4.18-5.48); Red Cell Distribution Width 17 % (10-15); White Blood Count 20.2 10^3/uL (3.5-10.8)
[2020-01-08 20:02] LABS: ABS Basophils 0.1 10^3/ul (0-0.2); ABS Lymphocytes 0.7 10^3/ul (1.0-4.8); ABS Monocytes 2.1 10^3/ul (0-0.8); ABS Neutrophils 17.4 10^3/ul (1.5-7.7); Lymphocyte % 3.5 %
[2020-01-08 20:15] LABS: ALT 11 U/L (7-52); AST 18 U/L (13-39); Albumin 2.9 g/dL (3.2-5.2); Albumin/Globulin Ratio 0.9 (1-3); Alkaline Phosphatase 62 U/L (34-104); BUN/Creatinine Ratio 15.1 (8-20); Blood Urea Nitrogen 26 mg/dL (6-24); Calcium 8.5 mg/dL (8.6-10.3); Chloride 106 mmol/L (101-111); EGFR African American 46.5 (>60); EGFR Non-African American 38.5 (>60); Globulin 3.1 g/dL (2-4); Glucose 174 mg/dL (70-100); Indirect Bilirubin 0.6 mg/dL (0.3-1.0); Potassium 4.4 mmol/L (3.5-5.0); Sodium 134 mmol/L (135-145)
[2020-01-08 20:19] LABS: Anion Gap 14 mmol/L (2-11); CO2 Carbon Dioxide 14 mmol/L (22-32)
[2020-01-08 22:36] LABS: Troponin I 0.14 ng/mL (<0.03)
[2020-01-08] MEDS ORDERED: NS 0.9% 1000 ML** 1,000 ML IV ONE (22:40)
--- NOTE | 2020-01-08 23:04 | PN ---
Hospitalist Progress Note Date of Service: 01/08/20 Patient with T wave inversions in V1-V6, consistent on repeat EKG. Troponin elevated from 0.10 ->0.14. Assessed patient and denies chest/neck/jaw pain. Patient only c/o back pain, consistent with compression fracture. Patient unable to take meds by mouth due to SBO. Would start heparin but would be contraindicated as DANIELA Coon reports patient had bowel movement with bright red blood tonight. Will continue to trend troponins and EKGs. Transferring patient to 4S floor for tele. Brief physical exam: Cardio: RRR without m/r/g appreciated Abd: nondistended. Rectal exam with bright red blood in vault, no palpable internal hemorrhoids or visible external hemorrhoids. Neuro: speech is delayed but is alert and answers questions Skin: not diaphoretic
[2020-01-08] MEDS: HYDROmorphone INJ* 0.5 MG/0.5 ML SYRINGE IV SLOW PU PRN (23:06)
[2020-01-09] MEDS ORDERED: levETIRAcetam IV* 1,000 MG in NS 0.9% 100 ML* 100 ML IVPB SCH ×2
[2020-01-09] MEDS: NS 0.9% 1000 ML** 1,000 ML IV SCH ×2 (00:23→16:30)
[2020-01-09] MEDS: levETIRAcetam 1000MG IVPREMIX* 1,000 MG/100 ML BAG IVPB SCH ×2 (00:40→19:24)
[2020-01-09 01:22] LABS: Troponin I 0.19 ng/mL (<0.03)
[2020-01-09] MEDS: Hydrocortisone INJ* 100 MG/2 ML VIAL (in pyxis) IV SCH ×3 (03:35→20:16)
[2020-01-09 04:02] LABS: Hematocrit 40 % (42-52); Hemoglobin 13.2 g/dL (14.0-18.0); Mean Corpuscular HGB Conc 33 g/dL (31-36); Mean Corpuscular Hemoglobin 28 pg (27-31); Mean Corpuscular Volume 83 fL (80-94); Mean Platelet Volume 6.9 fL (7.4-10.4); Platelet Count 336 10^3/uL (150-450); Red Cell Distribution Width 16 % (10-15); White Blood Count 25.9 10^3/uL (3.5-10.8)
[2020-01-09 04:22] LABS: ABS Basophils 0.1 10^3/ul (0-0.2); ABS Lymphocytes 0.9 10^3/ul (1.0-4.8); ABS Neutrophils 23.1 10^3/ul (1.5-7.7); BUN/Creatinine Ratio 17.8 (8-20); EGFR African American 44.1 (>60); EGFR Non-African American 36.5 (>60); Lymphocyte % 3.3 %; Potassium 4.5 mmol/L (3.5-5.0)
[2020-01-09 04:34] LABS: Troponin I 0.17 ng/mL (<0.03)
[2020-01-09] MEDS: HYDROmorphone INJ* 0.5 MG/0.5 ML SYRINGE IV SLOW PU PRN ×2 (08:12→20:16)
--- NOTE | 2020-01-09 08:12 | PN ---
Subjective Date of Service: 01/09/20 Interval History: Overnight, Patient had one episode of unresponsiveness, improved with Narcan, thought to be opioid dependence. Also noted lactic acidosis overnight, which is trending down this morning. Noted record of reddish stool overnight This morning, Patient was screaming in pain, he was holding both his legs up and shouted in pain. He didn't appear confused to me, he still recognized me, told me the pain was definitely worsening. But he did pull out his NGT this morning. Objective Active Medications: Enoxaparin Sodium (Lovenox(*)) 40 mg SUBCUT Q24H [facility] Last Admin: 01/08/20 08:55 Dose: 40 mg Famotidine (Pepcid Iv*) 20 mg IV SLOW PU DAILY [facility] Last Admin: 01/08/20 07:36 Dose: 20 mg Hydralazine HCl (Apresoline Iv*) 5 mg IV SLOW PU Q6H PRN PRN Reason: SBP>180 Last Admin: 01/07/20 21:17 Dose: 5 mg Hydrocortisone Sodium Succinate (Solu-Cortef*) 25 mg IV Q8H [facility] Last Admin: 01/09/20 03:35 Dose: 25 mg Hydromorphone HCl (Dilaudid Inj*) 0.25 mg IV SLOW PU Q4H PRN PRN Reason: PAIN - MODERATE Last Admin: 01/08/20 23:06 Dose: 0.25 mg Sodium Chloride (Ns 0.9% 1000 Ml) 1,000 mls @ 100 mls/hr IV PER RATE [facility] Last Admin: 01/09/20 00:23 Dose: 100 mls/hr Ceftriaxone Sodium 2 gm/ (Sodium Chloride) 100 mls @ 200 mls/hr IVPB Q24H [facility] Last Admin: 01/08/20 08:55 Dose: 200 mls/hr Levetiracetam (Keppra Iv Premix*) 1,000 mg in 100 mls @ 390.879 mls/hr IVPB Q12H [facility] Last Admin: 01/09/20 00:40 Dose: 390.879 mls/hr Ondansetron HCl (Zofran Inj*) 4 mg IV Q4H PRN PRN Reason: NAUSEA Last Admin: 01/08/20 07:35 Dose: 4 mg Vital Signs - 8 hr 01/09/20 01/09/20 04:04 04:43 Temperature 98.5 F Pulse Rate 103 Respiratory 18 Rate Blood Pressure 132/70 (mmHg) O2 Sat by Pulse 86 100 Oximetry Oxygen Devices in Use Now: Simple Face Mask Result Diagrams: 01/09/20 03:49 01/09/20 03:49 Diagnostic Imaging: CTAP: 1. small bowel obstruction with a transition annotated in the left mid abdomen 2. small volume ascites 3. osteopenia with compression fracture in L1 (acute appearing) 4. prostamegaly Assess/Plan/Problems-Billing Assessment: John Tong is a 79 y/o male with history of PAD, cutaneous T cell lymphoma, possible autonomic dysfunction with alternating hypertension and hypotension, osteoprosis, lumbar radiculopathy, polymyalgia rheumatica on years of steroid, secondary adrenal insufficiency, ?seizure on keppra prophylactically, [place] [facility] [place] onset of abdominal pain with N&V for 1 day, found to have SBO with transition point in mid abd in CTAP, cause unclear. - Patient Problems (1) Small bowel obstruction, partial Current Visit: Yes Status: Acute Code(s): K56.600 - PARTIAL INTESTINAL OBSTRUCTION, UNSPECIFIED TO CAUSE SNOMED Code(s): 992656645 Comment: - initially thought to be partial small bowel obstruction, was on medically management for 3 days, now worsening abd pain and reddish stool, with lactic acidosis, concerning for ischemic bowel - I contacted Dr. Ray this morning, updated him patient's condition, he willl see the patient soon - I also updated his HCP Corinne, who understands that the likelihood of requiring operation today. - pain control with reduced dose of dilaudid (2) Hypertension Current Visit: Yes Status: Acute Code(s): I10 - ESSENTIAL (PRIMARY) HYPERTENSION SNOMED Code(s): 45383003 Comment: - patient had hypertension history remotely, recently alternating hypotension and hypertension ?autonomic dysfunction (was more hypotensive at home, therefore fludrocortisone and Na tablet was started) - however persistent hypertension since admission - iv hydralazine for BP>180mmhg for now - hemodynamically stable now, watch bp closely (3) Compression fracture of L1 lumbar vertebra Current Visit: Yes Status: Acute Code(s): S32.010A - WEDGE COMPRESSION FRACTURE OF FIRST LUMBAR VERTEBRA, INIT SNOMED Code(s): 846495596 Comment: - acute back pain for 1.5 week with incidental finding in CT, consistent with acute compression fracture - pain control - a/w vitamin D results - talked to neurosurgeon Dr. Guillen, who suggested to put on TLSO brace and assess neurological status closely. - need to discuss osteoprosis tx options when acute issues settled. (4) Bacteremia Current Visit: Yes Status: Acute Code(s): R78.81 - BACTEREMIA SNOMED Code( s): 0524865 Comment: - 10/04 growing gram positive cocci, MRSA-, non staph aureus - patient has no fever, no focal infective sx, but does have mild leukocytosis - high risk for infection since he is a decade long chronic steroid user - I do believe that blood cs is skin contamination, however since patient bears high risk for infection/IE with chronic steroid use, I would like to cover empirically with IV ceftriaxone until detailed cs result back (5) Polymyalgia rheumatica Current Visit: No Status: Chronic Code(s): M35.3 - POLYMYALGIA RHEUMATICA SNOMED Code(s): 97216664 Comment: - on chronic pred 5mg, recently increased to higher dose - will keep stress dose iv hydrocort while npo - back to old dose pred 5mg when oralizing (6) Secondary adrenal insufficiency Current Visit: No Status: Chronic Code(s): E27.49 - OTHER ADRENOCORTICAL INSUFFICIENCY SNOMED Code(s): 05340594 Comment: - history, due to chronic steroid use - will keep current stress dose of hydrocort (7) Seizure disorder Current Visit: No Status: Chronic Code(s): G40.909 - EPILEPSY, UNSP, NOT INTRACTABLE, WITHOUT STATUS EPILEPTICUS SNOMED Code(s): 449953509 Comment: - presumptive, eeg neg in the past - continue iv keppra while npo (convert from oral keppra 750mg bid) (8) T-cell lymphoma Current Visit: No Status: Acute Code(s): C85.90 - NON-HODGKIN LYMPHOMA, UNSPECIFIED, UNSPECIFIED SITE SNOMED Code(s): 324599193 Comment: history, was seeing Heme/onco (9) DVT prophylaxis Current Visit: Yes Status: Acute Code(s): Z29.9 - ENCOUNTER FOR PROPHYLACTIC MEASURES, UNSPECIFIED SNOMED Code(s): 355582626 Comment: sc lovenox Status and Disposition: Inpatient Medicine. Attestation Documenting Resident: Faby Sanchez Supervising Physician: Wilfrido Barron Attending/Supervising Physician Comment: Agree with note as outlined here by Dr. Sanchez unless indicated here. LOC yesterday evening with hypotension, hypoxia associated with resultant lactic acidosis, inc troponin. Later developed BRBPR overnightnight and to the OR this AM with Dr. Ray. Keppra increased after loss of consciousness yesteday. Blood with staph hominis but will need abx for other reasons now. Care transitioned to ICU. Signed out face to face Attestation: This service has been performed in part by a resident under the direction of a teaching physician.I, Wilfrido Barron, performed the service, or was physically present during the critical, or virgen portions of the service, furnished by the resident. I participated in the management of the patient.
[2020-01-09] MEDS ORDERED: Ertapenem* 1 GM in NS 0.9% 50 ML* 50 ML IVPB ONE (08:42)
--- NOTE | 2020-01-09 08:42 | PN ---
Progress Note - Progress Note Date of Service: 01/09/20 SOAP: Subjective: Pt seen and examined. Overnight events noted. Severe abdominal pain. bloody stool. NGT pulled. Objective: Temp Pulse Resp BP Pulse Ox 98.0 F 98 16 144/75 99 01/09/20 08:16 01/09/20 08:16 01/09/20 08:16 01/09/20 08:16 01/09/20 08:16 answers questions, sleepy abdo: soft/ mild distension, tenderness out proportion. no contents at umbo hernia labs noted Assessment: Acute abdomen. Likely ischemic bowel; internal hernia vs mesenteric ischemia Plan: Diagnostic laparoscopy, possible laparotomy R/B/A discussed and pt wishes to proceed. I discussed on the phome with pt's as well; she will be coming to hospital. Possible complications of bleeding, infection, leak, hernia, prolonged hospitalization, stroke, VT, . We discussed the possiblity of bowel resection or findings c/w bowel ischemia that would not be survivable. MICHAEL Edwards IVF pre op abx case d/w primary team
[2020-01-09] MEDS ORDERED: Buffered Lidocaine 1% SYRIN* 1 ML/SYRINGE INTRADERM ONE (08:54)
[2020-01-09] MEDS ORDERED: Bupivacaine 0.5% W/EPI SDV* 30 ML VIAL ONE (09:02)
[2020-01-09] MEDS ORDERED: Bupivacaine 0.25% SDV* 30 ML ONE (09:02)
[2020-01-09] MEDS ORDERED: cefTRIAXone(*) 2 GM ADDV.VIAL IVPB ONE (09:14)
[2020-01-09] MEDS ORDERED: KETAMINE HCL* 50 MG/ML 10 ML VIAL ONE (09:21)
[2020-01-09] MEDS ORDERED: Midazolam* 1 MG/ML 2 ML VIAL (2 MG) ONE (09:21)
[2020-01-09] MEDS ORDERED: fentaNYL* 50 MCG/ML 2 ML VIAL (100 MCG VIAL) ONE (09:21)
[2020-01-09] MEDS ORDERED: Rocuronium* 10 MG/ML VIAL ONE (09:23)
[2020-01-09] MEDS ORDERED: HYDROmorphone INJ1* 1 MG/ML SYRINGE ONE (11:17)
[2020-01-09] MEDS ORDERED: HYDROmorphone INJ1* 1 MG/ML SYRINGE IV PRN (11:33)
[2020-01-09] MEDS ORDERED: Naloxone* 0.4 MG/ML 1 ML VIAL IV PRN (11:33)
[2020-01-09] MEDS ORDERED: fentaNYL* 50 MCG/ML 2 ML VIAL (100 MCG VIAL) IV PRN (11:33)
[2020-01-09] MEDS ORDERED: DiMENhydriNATE IV* 50 MG/ML VIAL IV PUSH PRN (11:33)
[2020-01-09] MEDS ORDERED: PROCHLORPERAZINE INJ 5 MG/ML 2 ML VIAL IV PRN (11:33)
[2020-01-09] MEDS ORDERED: Lidocaine 2% PF * 5 ML VIAL ONE (11:47)
[2020-01-09] MEDS ORDERED: Norepinephrine VIAL* 1 MG/ML 4 ML VIAL ONE (11:47)
[2020-01-09] MEDS ORDERED: Acetaminophen IV 1GM/100ML * 100 ML ONE (11:47)
[2020-01-09] MEDS ORDERED: Dexamethasone IV* 4 MG/ML 1 ML (4 MG) ONE (11:48)
[2020-01-09] MEDS ORDERED: Sugammadex * 200 MG/2 ML VIAL IV PUSH ONE (11:48)
[2020-01-09] MEDS ORDERED: Ondansetron INJ* 2 MG/ML VIAL ONE (11:48)
[2020-01-09] MEDS ORDERED: Metoprolol Tartrate IV* 1 MG/ML 5 ML VIAL ONE (12:11)
--- NOTE | 2020-01-09 12:24 | BRIEFOPN ---
Brief Operative/Procedure Note - Operation Details Pre-Op Diagnosis: Acute abdomen Post-Op Diagnosis: Ischemic small bowel, umbilical hernia Procedures: Placement of central line, exploratory laparotomy, resection of ischemic small bowel, umbilcal hernia repair. Surgeon(s)/Proceduralists: Dr. Ray. Assist: COREY Bajwa Anesthesia: GETA Estimated Blood Loss: <30cc Findings: As above Specimen(s)/Culture(s) Description: Small bowel. Hernia sac. Complications: None Miscellaneous Procedure Notes: None
[2020-01-09] MEDS ORDERED: hydrALAZINE IV* 20 MG/ML VIAL ONE (12:32)
[2020-01-09] MEDS: hydrALAZINE IV* 20 MG/ML VIAL IV SLOW PU PRN ×2 (12:37→22:05)
--- NOTE | 2020-01-09 14:42 | PN ---
Progress Note - Progress Note Date of Service: 01/09/20 Note: Patient was admitted for abdominal pain and nausea and vomiting, likely due to partial SBO. Last night he decompensated and was brought to the OR this morning. He is a DNR/DNI which he rescinded for surgery alone. He is now s/p diagnostic laparoscopy converted to mini laparotomy, small bowel resection, and umbilical hernia repair by Dr Ray. OR findings are significant for serosanguinous fluid in the peritoneum and necrotic distal ileum, approximately 30 cm. There was no evidence of internal hernia or adhesions. There was no obvious contamination. He did have a small umbilical hernia but there were no contents in the hernia. Right femoral central line was also placed by Dr Ray. The patient was extubated post-operatively and brought to PACU. He was then transferred to ICU for close hemodynamic and respiratory monitoring. The patient has no complaints. He denies chest pain, SOB, or abdominal pain. On exam, he is no acute distress and lying comfortably in bed. NG tube has bile- tinged clear fluid. He is breathing comfortably on room air. Dressings over incisions are clean and dry. He is answering questions appropriately for the most part, although there is sometimes a delay before he answers. Temp Pulse Resp BP Pulse Ox 98.6 F 86 14 177/81 100 01/09/20 13:15 01/09/20 14:01 01/09/20 14:01 01/09/20 14:01 01/09/20 14:01 A&P 79M admitted with pSBO, decompensated overnight and was found to have necrotic bowel, s/p dx lap converted to ex lap, small bowel resection, and umbilical hernia repair. -NPO. NGT to low continuous suction. Gentle IVF. -Continue ceftriaxone. 1 of 4 blood cx grew Staph hominis, which could be a contaminant. Final results pending. -May need hypercoagulable work up (could be done as outpatient) since it is unclear how the bowel became necrotic. -SQH for DVT prophylaxis.
[2020-01-09] MEDS: Famotidine IV* 10 MG/ML 2 ML (20 mg) IV SLOW PU SCH (16:57)
[2020-01-09] MEDS: cefTRIAXone(*) 2 GM in NS 0.9% 100 ML* 100 ML IVPB SCH (16:57)
[2020-01-09] MEDS: Heparin VIAL(*) 5000 UNITS/ML VIAL (FIVE THOUSAND) SUBCUT SCH (22:04)
[2020-01-09] MEDS ORDERED: Metoprolol Tartrate IV* 1 MG/ML 5 ML VIAL IV PRN (23:47)
[2020-01-10] MEDS ORDERED: HYDROmorphone INJ* 0.5 MG/0.5 ML SYRINGE IV SLOW PU PRN (00:32)
--- NOTE | 2020-01-10 01:43 | OP ---
CC: Dr. May Castillo; [facility] OPERATIVE REPORT: DATE OF OPERATION: 01/09/20 DATE OF : 38 SURGEON: Alex Ray MD SPORTS COORDINATOR: COREY Leo ANESTHESIOLOGIST: Dr. Nieto. ANESTHESIA: General anesthesia. PRE-OP DIAGNOSES: Acute abdomen and umbilical hernia. POST-OP DIAGNOSES: Ischemic small bowel and umbilical hernia. OPERATIVE PROCEDURE: Diagnostic laparoscopy, exploratory laparotomy, small bowel resection with prim marisa anastomosis and umbilical hernia repair. ESTIMATED BLOOD LOSS: Minimal blood loss. FLUIDS: Crystalloid fluid given. See Anesthesia report for details. SPECIMENS: 1. Small bowel with additional proximal margin. 2. Hernia sac. COMPLICATIONS: None. DRAINS: None. NG tube and Edwards catheter in place. DISPOSITION: At the end of surgery, the patient was extubated and transferred to PACU. DESCRIPTION OF THE PROCEDURE: Mr. Tong was evaluated by the anesthesia team. They attempted an a rt-line, I believe, in the preoperative area. He was evaluated. He was brought back to the OR, place d on the operating table in the supine position. He had already had antibiotics on board. Sequentia l device was placed on bilateral lower extremities and general anesthesia was induced. It became herson arent that the patient's IV access was compromised and I placed a triple lumen catheter in his right femoral vein. This was done under sterile technique. Accessing the vein with a finder needle, wire i nserted, and using Seldinger technique, a triple lumen catheter was inserted appropriately. This was sutured to the skin and all 3 ports were flushed with sterilized saline after aspiration of blood. Sterile dressing was applied. The abdomen was clipped of hair and prepped and draped in a standard surgical fashion and a time-out was performed. Identified the umbilical hernia and just to the left of this an incision was made. This was deepened down to the hernia which was entered. Some bloody ascites that was non-foul smelling was encountered . A 12-mm blunt trocar was then inserted and the abdomen was allowed to insufflate to a pressure of 15 mmHg. The patient tolerated the insufflation well. Laparoscope was inserted through this and rev iew of the abdomen showed an ischemic portion of the small bowel. It was unclear the length of this, but most of the small bowel encountered was viable. A 5-mm trocar was then inserted at the right up per quadrant and suction irrigation was used to suction bloody ascites over the liver and pelvis and also by the spleen. Bowel was grasped and I did not see any adhesions that were internal hernias at this time, but the decision was made to convert to minilaparotomy. The trocar was removed. Incision was extended inferiorly and I entered into the abdomen where the small bowel was eviscerated. Approx imately 25 cm of small bowel was ischemic and we ran the bowel from ligament of Treitz all the way to the terminal ileum and they were no other similar lesions. The mesentery was edematous and also sug gestive of thrombosis. I could not again find any internal hernia. There were no adhesions to lyse and the decision was made just to perform a primary bowel resection. Points were chosen both proximal ly and distally. These were taken with 80-mm BRENDA stapling device. The mesentery was taken with Liga Sure. We dropped the small bowel back into the abdomen prior to performing the anastomosis to see ho w viable the ends would be. We then irrigated and looked for any additional lesions. Liver was smoo th without lesion. NG tube was in the appropriate positioning, but did require the anesthesiologist to make some changes to this. The sigmoid colon was normalized with cecum. We brought the small bow el back out namely at the spot where we would create an anastomosis. The proximal small bowel was sh owing signs of ischemic-type changes and for this reason I took an additional 10 cm proximal. It shou ld be noted that the portion of the bowel that was ischemic was the mid to distal ileum. With the new portion resected, the anastomosis was created using an 80-mm BRENDA stapling device after m aking enterotomies and then closed the common defect with TA 60 blue load stapler. The staple line w as sutured both at the anastomosis site and also at the closure of the common enterotomy site with 3- 0 silk sutures to don most of the staple line. The bowel appeared viable and I then sutured the mese ntery with a running 2-0 Vicryl stitch. We assured that the bowel was in the appropriate orientation , dropped it back into the abdomen. Next the hernia sac was dissected from the umbilicus and passed off. We then closed the fascia with #1 looped PDS suture starting inferiorly and also superiorly, tying them in the middle. The wound wa s then irrigated and reapproximated with skin jaycee. The additional 5-mm trocar site at the right upper quadrant was also closed with jaycee. Sterile dressing was applied. The patient was woken up and transferred to the PACU in stable condition. [id number]/[facility] #: [id number]
[2020-01-10] MEDS ORDERED: hydrALAZINE IV* 20 MG/ML VIAL IV SLOW PU ONE (01:47)
[2020-01-10] MEDS ORDERED: hydrALAZINE IV* 20 MG/ML VIAL IV SLOW PU PRN (01:48)
[2020-01-10] MEDS: HYDROmorphone INJ* 0.5 MG/0.5 ML SYRINGE IV SLOW PU PRN ×6 (03:04→19:04)
[2020-01-10] MEDS: Hydrocortisone INJ* 100 MG/2 ML VIAL (in pyxis) IV SCH ×3 (03:04→19:03)
[2020-01-10] MEDS: NS 0.9% 1000 ML** 1,000 ML IV SCH (03:07)
[2020-01-10] MEDS: Enoxaparin(*) 40 MG/0.4 ML SYR SUBCUT SCH (03:35)
[2020-01-10] MEDS: levETIRAcetam 1000MG IVPREMIX* 1,000 MG/100 ML BAG IVPB SCH ×3 (03:35→18:43)
[2020-01-10] MEDS: Heparin VIAL(*) 5000 UNITS/ML VIAL (FIVE THOUSAND) SUBCUT SCH ×3 (05:44→21:54)
[2020-01-10 06:10] LABS: ABS Lymphocytes 0.5 10^3/ul (1.0-4.8); ABS Monocytes 1.4 10^3/ul (0-0.8); ABS Neutrophils 18.4 10^3/ul (1.5-7.7); Hematocrit 33 % (42-52); Hemoglobin 10.8 g/dL (14.0-18.0); Lymphocyte % 2.2 %; Mean Corpuscular HGB Conc 33 g/dL (31-36); Mean Corpuscular Hemoglobin 27 pg (27-31); Mean Corpuscular Volume 82 fL (80-94); Mean Platelet Volume 6.5 fL (7.4-10.4); Platelet Count 293 10^3/uL (150-450); Red Blood Count 3.96 10^6 /uL (4.18-5.48); Red Cell Distribution Width 17 % (10-15); White Blood Count 20.3 10^3/uL (3.5-10.8)
[2020-01-10 06:28] LABS: BUN/Creatinine Ratio 28.4 (8-20); EGFR African American 100.8 (>60); EGFR Non-African American 83.3 (>60); Potassium 3.6 mmol/L (3.5-5.0)
[2020-01-10] MEDS: Famotidine IV* 10 MG/ML 2 ML (20 mg) IV SLOW PU SCH (07:55)
[2020-01-10] MEDS: cefTRIAXone(*) 2 GM in NS 0.9% 100 ML* 100 ML IVPB SCH (07:59)
--- NOTE | 2020-01-10 09:48 | PN ---
Date of Service: 01/10/20 Critical Care Services: No acute events overnight. He has been confused. He reports mild abdominal pain. He has been given dilaudid for pain. He denies chest pain or shortness of breath. Afebrile. Hemodynamically stable overnight. Vital Signs: Temp Pulse Resp BP SpO2 FiO2 99.5 F 99 24 165/76 100 01/10/20 08:00 01/10/20 09:00 01/10/20 09:05 01/10/20 09:00 01/10/20 09:00 Physical Exam: Gen: NAD, lying in bed. HEENT: Normocephalic and atraumatic. Pupils are equal. NG tube with bilious thick fluid. Neck supple. Lungs: Clear to auscultation. NO accessory muscle use. Cardiac: RRR Abdomen: Soft, mildly distended. Mild tenderness to palpation. Dressings over incisions are clean and dry. Extremities: R BKA, warm. LLE warm and no pedal edema. Neuro: Alert. Oriented to person and place. Moves all extremities equally. Fluid Balance (Past 24 Hours): I= O= Net Intake & Output 01/08/20 01/09/20 01/10/20 01/11/20 06:59 06:59 06:59 06:59 Intake Total 1030 2888 3973 Output Total 6609 865 4015 374 Balance -295 2788 1848 -374 Weight 142 lb 149 lb 4.047 oz Intake: IV Fluids 1030 2888 3868 LR 2600 NS (0.9%) 1888 1268 NS (0.9%) 40 meq KCL 980 bolus ns 1000 IVPB 105 Keppra 105 Oral 0 0 Output: NG Tube Drainage Amount 500 100 Urine 825 0 Edwards 2025 374 Estimated Blood Loss 100 Other: Estimated Void Medium Large Estimated Stool Amount Small # Voids 1 2 Labs: Laboratory Results - last 24 hr 01/10/20 01/10/20 06:00 06:00 WBC 20.3 H RBC 3.96 L Hgb 10.8 L Hct 33 L MCV 82 MCH 27 MCHC 33 RDW 17 H Plt Count 293 MPV 6.5 L Neut % (Auto) 90.8 Lymph % (Auto) 2.2 Bonner % (Auto) 6.9 Eos % (Auto) 0.0 Baso % (Auto) 0.1 Absolute Neuts (auto) 18.4 H Absolute Lymphs (auto) 0.5 L Absolute Monos (auto) 1.4 H Absolute Eos (auto) 0.0 Absolute Basos (auto) 0.0 Absolute Nucleated RBC 0.0 Nucleated RBC % 0.0 Sodium 139 Potassium 3.6 Chloride 111 Carbon Dioxide 20 L Anion Gap 8 BUN 25 H Creatinine 0.88 Est GFR ( Amer) 100.8 Est GFR (Non-Af Amer) 83.3 BUN/Creatinine Ratio 28.4 H Glucose 120 H Calcium 8.0 L Nutrition: NPO Impression: 79M admitted with pSBO, found to have ischemic bowel s/p dx lap converted to mini laparotomy, SBR, and umbilical hernia repair. POD 1. Ischemic bowel Leukocytosis CATHERINE, resolved HTN Acute anemia post-operatively Compression fracture of L1 lumbar vertebra Polymyalgia rheumatica Secondary adrenal insufficiency Seizure disorder Plan: Neuro: Dilaudid prn for pain as needed. Continue home Keppra, dose was increased yesterday to 1g. Delirium precautions CV: Has been hypertensive during hospitalization. Hydralazine prn. Continuous telemetry while in ICU Resp: Titrate FiO2 to keep O2 sat >90%. Currently on room air GI: NPO. NG to low continuous suction. Continue famotidine Renal: Cr 1.8 yesterday, now 0.88 with good urine output. Edwards for accurate I&Os Maintenance IVF ID: Blood cultures negative except for 1 bottle with Staph hominis, likely a contaminant. Continue ceftriaxone now since WBC is still 20 although improved from 25.9 yesterday. Leukocytosis likely due to ischemic bowel, so anticipate stopping antibiotics in the next 1-2 days. Heme: Acute anemia after surgery, may also be dilutional. Will monitor for now. Daily CBC DVT ppx: SQH Endo: Glucose within normal limits, goal BG <200. Continue hydrocortisone for stress dose steroids. Takes prednisone chronically. MSK: Activity with assistance Wounds: None Code status: DNR/DNI Dispo: Transfer to floor today Status: Stable
--- NOTE | 2020-01-10 10:01 | PN ---
Progress Note - Progress Note Date of Service: 01/10/20 SOAP: Subjective: Pt seen and examined. sleepy, slurs his words, answers appropriately abdo pain Objective: Temp Pulse Resp BP Pulse Ox 99.5 F 99 24 165/76 100 01/10/20 08:00 01/10/20 09:00 01/10/20 09:05 01/10/20 09:00 01/10/20 09:00 abdo: soft/ mild distension, tender dressing intact labs noted micro noted Assessment: POD 1 SB resection, HD stable, bacteremia Plan: IVF Possible d/c NGT later labs in am OOB abx
[2020-01-10] MEDS ORDERED: KCL 20 MEQ/100 ML IVPREMIX* 20 MEQ/100 ML BAG IV ONE (11:03)
[2020-01-10] MEDS: D5W 1/2 NS KCl 20 Meq 1000 ML* 1,000 ML IV SCH (11:37)
[2020-01-10 16:20] LABS: ABS Basophils 0.1 10^3/ul (0-0.2); ABS Lymphocytes 0.4 10^3/ul (1.0-4.8); ABS Monocytes 1.1 10^3/ul (0-0.8); ABS Neutrophils 15.4 10^3/ul (1.5-7.7); Hematocrit 32 % (42-52); Hemoglobin 10.7 g/dL (14.0-18.0); Lymphocyte % 2.6 %; Mean Corpuscular HGB Conc 34 g/dL (31-36); Mean Corpuscular Hemoglobin 28 pg (27-31); Mean Corpuscular Volume 82 fL (80-94); Mean Platelet Volume 6.2 fL (7.4-10.4); Platelet Count 294 10^3/uL (150-450); Red Blood Count 3.89 10^6 /uL (4.18-5.48); Red Cell Distribution Width 16 % (10-15)
[2020-01-10 16:36] LABS: BUN/Creatinine Ratio 33.3 (8-20); Calcium 8.2 mg/dL (8.6-10.3); EGFR African American 127.1 (>60); Phosphorus 1.9 mg/dL (2.5-5.0); Potassium 3.5 mmol/L (3.5-5.0)
[2020-01-10 17:24] LABS: Urine Appearance Cloudy; Urine Bilirubin Negative (Negative); Urine Blood 3+ (Negative); Urine Color Yellow; Urine Glucose 1+(50 mg/dL) (Negative); Urine Ketones 1+ (Negative); Urine Nitrite Negative (Negative); Urine Protein Negative (Negative); Urine Specific Gravity 1.019 (1.010-1.030); Urine Urobilinogen Negative (Negative)
[2020-01-10 17:45] LABS: Urine Bacteria Absent (Absent); Urine Red Blood Cell 3+(>10/hpf) (Absent); Urine White Blood Cell 2+(11-20/hpf) (Absent)
[2020-01-11] MEDS: HYDROmorphone INJ* 0.5 MG/0.5 ML SYRINGE IV SLOW PU PRN ×3 (00:19→12:46)
[2020-01-11] MEDS: D5W 1/2 NS KCl 20 Meq 1000 ML* 1,000 ML IV SCH ×2 (04:16→12:52)
[2020-01-11] MEDS: Hydrocortisone INJ* 100 MG/2 ML VIAL (in pyxis) IV SCH ×2 (04:17→14:38)
[2020-01-11] MEDS: Heparin VIAL(*) 5000 UNITS/ML VIAL (FIVE THOUSAND) SUBCUT SCH ×3 (06:05→21:42)
[2020-01-11] MEDS: levETIRAcetam 1000MG IVPREMIX* 1,000 MG/100 ML BAG IVPB SCH (06:05)
[2020-01-11 09:31] LABS: ABS Basophils 0.1 10^3/ul (0-0.2); ABS Lymphocytes 0.5 10^3/ul (1.0-4.8); ABS Monocytes 0.8 10^3/ul (0-0.8); ABS Neutrophils 11.7 10^3/ul (1.5-7.7); Hematocrit 30 % (42-52); Hemoglobin 10.4 g/dL (14.0-18.0); Mean Corpuscular HGB Conc 34 g/dL (31-36); Mean Corpuscular Hemoglobin 28 pg (27-31); Mean Corpuscular Volume 82 fL (80-94); Mean Platelet Volume 6.5 fL (7.4-10.4); Platelet Count 266 10^3/uL (150-450); Red Blood Count 3.71 10^6 /uL (4.18-5.48); Red Cell Distribution Width 16 % (10-15); White Blood Count 13.1 10^3/uL (3.5-10.8)
[2020-01-11] MEDS: Famotidine IV* 10 MG/ML 2 ML (20 mg) IV SLOW PU SCH (09:42)
[2020-01-11] MEDS: cefTRIAXone(*) 2 GM in NS 0.9% 100 ML* 100 ML IVPB SCH (09:42)
[2020-01-11 09:45] LABS: BUN/Creatinine Ratio 26.2 (8-20); Calcium 8.1 mg/dL (8.6-10.3); EGFR African American 153.9 (>60); EGFR Non-African American 127.2 (>60); Magnesium 1.7 mg/dL (1.9-2.7)
[2020-01-11] MEDS ORDERED: Magnesium Sulfate 1 GM IV* 1 GM/100 ML BAG IV ONE ×2 (10:57→10:59)
--- NOTE | 2020-01-11 11:07 | PN ---
Progress Note - Progress Note Date of Service: 01/11/20 SOAP: Subjective: Pt seen and examined. sleepy,more clear today, back pain, abdo pian, thirsty. now on short stay; pulled NGT yesterday, no vomiting, no hiccoughs. Objective: Temp Pulse Resp BP Pulse Ox 98.2 F 73 16 186/74 99 01/11/20 08:03 01/11/20 08:03 01/11/20 08:03 01/11/20 08:03 01/11/20 08:03 Intake & Output 01/10/20 01/11/20 01/11/20 22:59 06:59 14:59 Intake Total 0 0 Output Total 850 1350 Balance -850 -1350 a and ox3, nad lungs clear abdo: soft/ ND, tender dressing removed, no redness RLE: no edema labs noted Assessment: POD 2 SB resection, HD stable, bacteremia Plan: IVF, Po meds, ice chips labs in am OOB abx d/c newell replete lytes some home meds
[2020-01-11] MEDS ORDERED: Magnesium Sulfate 2 GM IV (Premix) IVPB ONE (12:00)
--- NOTE | 2020-01-11 12:11 | PN ---
Subjective Date of Service: 01/11/20 Interval History: Mr. Tong is feeling well this morning. He offers no complaints but is feeling tired. Denies abdominal pain, N/V, CP, SOB, cough. Does not feel hungry. Has not been OOB. No concerns from nursing. Family History: Unchanged from Admission Social History: Unchanged from Admission Past Medical History: Unchanged from Admission Objective Active Medications: Clopidogrel Bisulfate (Plavix Tab*) 75 mg PO DAILY [facility] Famotidine (Pepcid Iv*) 20 mg IV SLOW PU DAILY [facility] Finasteride (Proscar Tab*) 5 mg PO DAILY [facility] Fludrocortisone Acetate (Florinef Tab*) 0.1 mg PO DAILY [facility] Gabapentin (Neurontin Cap(*)) 600 mg PO 1200 [facility] Gabapentin (Neurontin Cap(*)) 1,200 mg PO 2100 [facility] Heparin Sodium (Porcine) (Heparin Vial(*)) 5,000 units SUBCUT Q8HR [facility] Hydralazine HCl (Apresoline Iv*) 10 mg IV SLOW PU Q6H PRN SBP>180 Hydrocortisone Sodium Succinate (Solu-Cortef*) 25 mg IV Q8H [facility] Hydromorphone HCl (Dilaudid Inj*) 0.5 mg IV SLOW PU Q2HR PRN PAIN - MODERATE Ceftriaxone Sodium 2 gm/ (Sodium Chloride) 100 mls @ 200 mls/hr IVPB Q24H [facility] Potassium Chloride (Potassium Chloride 20 Meq/100 Ml Ivpremix*) 20 meq in 100 mls @ 50 mls/hr IV Q2H [facility] Potassium Phosphate 15 mmole/ (Sodium Chloride) 255 mls @ 42 mls/hr IVPB ONCE ONE Potassium Chloride/Dextrose (D5w 1/2 Ns Kcl 20 Meq 1000 Ml*) 1,000 mls @ 60 mls /hr IV PER RATE [facility] Magnesium Sulfate (Magnesium Sulfate 2 Gm Iv*) 2 gm in 50 mls @ 50 mls/hr IVPB ONCE ONE Levetiracetam (Keppra Xr (Nf)) 750 mg PO BID [facility]; Protocol Metoprolol Tartrate (Lopressor Iv*) 5 mg IV Q6H PRN BLOOD PRESSURE Ondansetron HCl (Zofran Inj*) 4 mg IV Q4H PRN NAUSEA Vital Signs - 8 hr 01/11/20 01/11/20 01/11/20 04:08 04:21 04:22 Temperature 97.3 F Pulse Rate 72 Respiratory 19 18 18 Rate Blood Pressure 183/74 (mmHg) O2 Sat by Pulse 100 Oximetry 01/11/20 01/11/20 01/11/20 08:00 08:03 11:24 Temperature 98.2 F 97.3 F Pulse Rate 73 72 Respiratory 16 16 16 Rate Blood Pressure 186/74 173/78 (mmHg) O2 Sat by Pulse 99 99 100 Oximetry Oxygen Devices in Use Now: None Appearance: Elderly male lying in bed in NAD Ears/Nose/Mouth/Throat: Mucous Membranes Moist Neck: NL Appearance and Movements; NL JVP, Trachea Midline Respiratory: Symmetrical Chest Expansion and Respiratory Effort, Clear to Auscultation Cardiovascular: NL Sounds; No Murmurs; No JVD Abdominal: - - Soft, tender to light palpation, hypoactive BS Extremities: No Edema Neurological: - - Oriented to self and place Lines/Tubes/Other Access: Clean, Dry and Intact Peripheral IV Result Diagrams: 01/11/20 09:24 01/11/20 09:24 Assess/Plan/Problems-Billing Assessment: Mr. Tong is a 79 yo M with PMH of PAD, cutaneous T cell lymphoma, possible autonomic dysfunction with alternating hypertension and hypotension, osteoprosis , lumbar radiculopathy, polymyalgia rheumatica on years of steroid, secondary adrenal insufficiency, ?seizure on Keppra prophylactically; presented with acute onset of abdominal pain with N&V for 1 day, found to have SBO, cause unclear. - Patient Problems (1) Small bowel ischemia Code(s): K55.9 - VASCULAR DISORDER OF INTESTINE, UNSPECIFIED Comment: - POD #2 small bowel resection and hernia repair - Management per Surgery - PO meds and ice chips okay - Continue famotidine (2) Small bowel obstruction Code(s): K56.609 - UNSP INTESTNL OBST, UNSP TO PARTIAL VERSUS COMPLETE OBST Comment: - Presented with abdominal pain - CT on admission showing SBO with transition point in the left mid abdomen - Secondary to ischemic bowel - Plan as above (3) Leukocytosis Code(s): D72.829 - ELEVATED WHITE BLOOD CELL COUNT, UNSPECIFIED Comment: - Likely secondary to bowel ischemia - 2/4 BC + for Staph, likely a contaminant, but will continue abx until WBC normalizes - Continue ceftriaxone (4) Acute blood loss anemia Code(s): D62 - ACUTE POSTHEMORRHAGIC ANEMIA Comment: - H&H stable - Will transfuse for Hgb <7 (5) CATHERINE (acute kidney injury) Code(s): N17.9 - ACUTE KIDNEY FAILURE, UNSPECIFIED Comment: - Resolved (6) Hypertension Code(s): I10 - ESSENTIAL (PRIMARY) HYPERTENSION Comment: - Hypertension history remotely, recently alternating hypotension and hypertension ?autonomic dysfunction (was more hypotensive at home, therefore fludrocortisone and Na tablet was started) but now consistently hypertensive - Hemodynamically stable now, watch BP closely - Continue hydralazine PRN (7) Compression fracture of L1 lumbar vertebra Code(s): S32.010A - WEDGE COMPRESSION FRACTURE OF FIRST LUMBAR VERTEBRA, INIT Comment: - Acute back pain for 1.5 week with incidental finding in CT, consistent with acute compression fracture - Neurosurgery recommending TLSO brace - Need to discuss osteoprosis tx options outpatient - Continue hydromorphone (8) Seizure disorder Code(s): G40.909 - EPILEPSY, UNSP, NOT INTRACTABLE, WITHOUT STATUS EPILEPTICUS Comment: - Continue Keppra (9) Polymyalgia rheumatica Code(s): M35.3 - POLYMYALGIA RHEUMATICA Comment: - Resume prednisone (10) Peripheral arterial disease Code(s): I73.9 - PERIPHERAL VASCULAR DISEASE, UNSPECIFIED Comment: - Continue Plavix, gabapentin (11) DVT prophylaxis Code(s): Z29.9 - ENCOUNTER FOR PROPHYLACTIC MEASURES, UNSPECIFIED Comment: - Heparin SQ (12) DNR (do not resuscitate) Comment: Status and Disposition: Inpatient. Anticipate d/c home vs [facility] when medically stable and cleared by Surgery. Attending: Wilfrido Barron
[2020-01-11] MEDS ORDERED: Potassium Phosphate IV* 15 MMOLE in NS 0.9% 250 ML* 250 ML IVPB ONE (12:30)
[2020-01-11] MEDS: KCL 20 MEQ/100 ML IVPREMIX* 20 MEQ/100 ML BAG IV SCH ×2 (12:45→17:22)
[2020-01-11] MEDS: Finasteride TAB* 5 MG PO SCH (13:57)
[2020-01-11] MEDS: Clopidogrel TAB* 75 MG PO SCH (13:57)
[2020-01-11] MEDS: Gabapentin CAP(*) 300 MG PO SCH (13:58)
[2020-01-11] MEDS: Magnesium Oxide TAB* 400 MG PO SCH (20:44)
[2020-01-11] MEDS: Gabapentin CAP(*) 400 MG PO SCH (20:46)
[2020-01-11] MEDS: CMCS: Levetiracetam XR TAB(NF) 750 MG TAB.XR PO SCH (20:48)
[2020-01-12] MEDS: HYDROmorphone INJ* 0.5 MG/0.5 ML SYRINGE IV SLOW PU PRN ×4 (00:01→18:27)
[2020-01-12] MEDS: D5W 1/2 NS KCl 20 Meq 1000 ML* 1,000 ML IV SCH (03:23)
[2020-01-12] MEDS: Heparin VIAL(*) 5000 UNITS/ML VIAL (FIVE THOUSAND) SUBCUT SCH ×3 (05:57→21:47)
[2020-01-12 06:26] LABS: Hematocrit 34 % (42-52); Hemoglobin 11.3 g/dL (14.0-18.0); Mean Corpuscular HGB Conc 34 g/dL (31-36); Mean Corpuscular Hemoglobin 27 pg (27-31); Mean Corpuscular Volume 81 fL (80-94); Mean Platelet Volume 6.4 fL (7.4-10.4); Platelet Count 296 10^3/uL (150-450); Red Blood Count 4.12 10^6 /uL (4.18-5.48); Red Cell Distribution Width 17 % (10-15); White Blood Count 8.7 10^3/uL (3.5-10.8)
[2020-01-12 06:46] LABS: Albumin 2.6 g/dL (3.2-5.2); BUN/Creatinine Ratio 25.8 (8-20); EGFR Non-African American 124.8 (>60); Globulin 2.7 g/dL (2-4); Total Bilirubin 0.8 mg/dL (0.2-1.0); Total Protein 5.3 g/dL (6.4-8.9)
[2020-01-12] MEDS: cefTRIAXone(*) 2 GM in NS 0.9% 100 ML* 100 ML IVPB SCH (08:40)
[2020-01-12] MEDS: Ondansetron INJ* 2 MG/ML VIAL IV PRN (08:40)
[2020-01-12] MEDS: Famotidine IV* 10 MG/ML 2 ML (20 mg) IV SLOW PU SCH (08:40)
[2020-01-12] MEDS: Atorvastatin* 40 MG TAB PO SCH (08:51)
[2020-01-12] MEDS: Clopidogrel TAB* 75 MG PO SCH (08:51)
[2020-01-12] MEDS: CMCS: Levetiracetam XR TAB(NF) 750 MG TAB.XR PO SCH (08:52)
[2020-01-12] MEDS: Fludrocortisone Acetate TAB* 0.1 MG PO SCH (08:52)
[2020-01-12] MEDS: Potassium Chlor TAB* 10 MEQ TAB.ER PO SCH ×2 (08:52→20:00)
[2020-01-12] MEDS: Magnesium Oxide TAB* 400 MG PO SCH ×2 (08:52→20:00)
[2020-01-12] MEDS: Finasteride TAB* 5 MG PO SCH (08:52)
[2020-01-12] MEDS: Pantoprazole TAB * 40 MG TAB PO SCH (08:53)
--- NOTE | 2020-01-12 09:53 | PN ---
Progress Note - Progress Note Date of Service: 01/12/20 Note: S: NG tube and newell removed. No emesis. Reports ABD pain. No BM. O: Temp Pulse Resp BP Pulse Ox 98.0 F 75 20 140/68 99 01/12/20 07:24 01/12/20 07:24 01/12/20 08:39 01/12/20 07:24 01/12/20 07:24 Laboratory Last Values WBC 8.7 10^3/uL (3.5-10.8) 01/12/20 05:56 RBC 4.12 10^6 /uL (4.18-5.48) L 01/12/20 05:56 Hgb 11.3 g/dL (14.0-18.0) L 01/12/20 05:56 Hct 34 % (42-52) L 01/12/20 05:56 MCV 81 fL (80-94) 01/12/20 05:56 MCH 27 pg (27-31) 01/12/20 05:56 MCHC 34 g/dL (31-36) 01/12/20 05:56 RDW 17 % (10-15) H 01/12/20 05:56 Plt Count 296 10^3/uL (150-450) 01/12/20 05:56 MPV 6.4 fL (7.4-10.4) L 01/12/20 05:56 Neut % (Auto) 89.0 % 01/11/20 09:24 Lymph % (Auto) 4.0 % 01/11/20 09:24 [place] % (Auto) 6.3 % 01/11/20 09:24 Eos % (Auto) 0.0 % 01/11/20 09:24 Baso % (Auto) 0.7 % 01/11/20 09:24 Absolute Neuts (auto) 11.7 10^3/ul (1.5-7.7) H 01/11/20 09:24 Absolute Lymphs (auto) 0.5 10^3/ul (1.0-4.8) L 01/11/20 09:24 Absolute Monos (auto) 0.8 10^3/ul (0-0.8) 01/11/20 09:24 Absolute Eos (auto) 0.0 10^3/ul (0-0.6) 01/11/20 09:24 Absolute Basos (auto) 0.1 10^3/ul (0-0.2) 01/11/20 09:24 Absolute Nucleated RBC 0.0 10^3/ul 01/11/20 09:24 Nucleated RBC % 0.0 01/11/20 09:24 INR (Anticoag Therapy) 0.96 (0.82-1.09) 01/07/20 05:39 APTT 25.9 seconds (26.0-38.0) L 01/07/20 05:39 Patient Temperature Not Reportable 01/08/20 18:55 ABG pH 7.40 (7.35-7.45) 01/08/20 18:55 ABG pH (Temp Correct) Not Reportable 01/08/20 18:55 ABG pCO2 20 mmHg (35-45) L 01/08/20 18:55 ABG pCO2 (Temp Corrct Not Reportable 01/08/20 18:55 ABG pO2 216 mmHg (80-100) H 01/08/20 18:55 ABG pO2 (Temp Correct Not Reportable 01/08/20 18:55 ABG HCO3 17.1 mmol/L (19-31) L 01/08/20 18:55 ABG O2 Saturation 100.0 % (94.0-98.0) H 01/08/20 18:55 ABG Base Excess -10.0 mmol/L (-2.0-2.0) L 01/08/20 18:55 Respiration Rate Not Reportable 01/08/20 18:55 O2 Delivery Device oxymask 01/08/20 18:55 Ventilator Type Not Reportable 01/08/20 18:55 Vent Mode Not Reportable 01/08/20 18:55 FiO2 Not Reportable 01/08/20 18:55 Inspiratory Time Not Reportable 01/08/20 18:55 PEEP Not Reportable 01/08/20 18:55 Pressure Support Not Reportable 01/08/20 18:55 Pressure Control Not Reportable 01/08/20 18:55 EPAP Not Reportable 01/08/20 18:55 IPAP Not Reportable 01/08/20 18:55 BiPAP Not Reportable 01/08/20 18:55 Sodium 137 mmol/L (135-145) 01/12/20 05:56 Potassium 3.0 mmol/L (3.5-5.0) L 01/12/20 05:56 Chloride 105 mmol/L (101-111) 01/12/20 05:56 Carbon Dioxide 25 mmol/L (22-32) 01/12/20 05:56 Anion Gap 7 mmol/L (2-11) 01/12/20 05:56 BUN 16 mg/dL (6-24) 01/12/20 05:56 Creatinine 0.62 mg/dL (0.67-1.17) L 01/12/20 05:56 Est GFR ( Amer) 151.0 (>60) 01/12/20 05:56 Est GFR (Non-Af Amer) 124.8 (>60) 01/12/20 05:56 BUN/Creatinine Ratio 25.8 (8-20) H 01/12/20 05:56 Glucose 119 mg/dL (70-100) H 01/12/20 05:56 POC Glucose (mg/dL) 164 mg/dL (70-100) H 01/08/20 18:51 Lactic Acid 1.9 mmol/L (0.5-2.0) 01/09/20 03:49 Calcium 8.0 mg/dL (8.6-10.3) L 01/12/20 05:56 Phosphorus 3.0 mg/dL (2.5-5.0) 01/12/20 05:56 Magnesium 2.0 mg/dL (1.9-2.7) 01/12/20 05:56 Total Bilirubin 0.80 mg/dL (0.2-1.0) 01/12/20 05:56 Direct Bilirubin 0.20 mg/dL (0.03-0.18) H 01/08/20 19:45 Indirect Bilirubin 0.6 mg/dL (0.3-1.0) 01/08/20 19:45 AST 28 U/L (13-39) 01/12/20 05:56 ALT 19 U/L (7-52) 01/12/20 05:56 Alkaline Phosphatase 47 U/L (34-104) 01/12/20 05:56 Ammonia 34 mcmol/L (16-53) 01/07/20 05:39 Troponin I 0.17 ng/mL (<0.03) H* 01/09/20 03:49 C-Reactive Protein 9.19 mg/L (<8.01) H 01/07/20 05:39 Total Protein 5.3 g/dL (6.4-8.9) L 01/12/20 05:56 Albumin 2.6 g/dL (3.2-5.2) L 01/12/20 05:56 Globulin 2.7 g/dL (2-4) 01/12/20 05:56 Albumin/Globulin Ratio 1.0 (1-3) 01/12/20 05:56 Amylase 55 U/L (29-103) 01/07/20 05:39 Lipase 14 U/L (11.0-82.0) 01/07/20 05:39 Urine Color Yellow 01/10/20 16:30 Urine Appearance Cloudy 01/10/20 16:30 Urine pH 6.0 (5-9) 01/10/20 16:30 Ur Specific [place] 1.019 (1.010-1.030) 01/10/20 16:30 Urine Protein Negative (Negative) 01/10/20 16:30 Urine Ketones 1+ (Negative) A 01/10/20 16:30 Urine Blood 3+ (Negative) A 01/10/20 16:30 Urine Nitrate Negative (Negative) 01/10/20 16:30 Urine Bilirubin Negative (Negative) 01/10/20 16:30 Urine Urobilinogen Negative (Negative) 01/10/20 16:30 Ur Leukocyte Esterase Trace (Negative) A 01/10/20 16:30 Urine WBC (Auto) 2+(11-20/hpf) (Absent) A 01/10/20 16:30 Urine RBC (Auto) 3+(>10/hpf) (Absent) A 01/10/20 16:30 Urine Bacteria Absent (Absent) 01/10/20 16:30 Urine Glucose 1+(50 mg/dl) (Negative) A 01/10/20 16:30 PEX General: Alert, in NAD. HEENT: Trachea midline. Oropharynx clear. PERRLA. Heart: RRR. Lungs: CTAB. ABD: BS present. Soft, ND. Tender in epigastrium and surrounding incisions, which are closed and without discharge, erythema, or warmth. Extremities: Distal pulses intact bilaterally. No edema. Calves soft and nontender. Assessment and plan: 79 yo M s/p small bowel resection POD 3. Electrolytes being repleted. Clear liquid diet to start now. IVF, OOB, abx, SCDs.
--- NOTE | 2020-01-12 10:12 | PN ---
Subjective Date of Service: 01/12/20 Interval History: Mr. Tong is feeling okay this morning. He is having mid-abdominal pain, constant. Feeling a little nauseous. Not passing any gas and no BM. Denies CP, SOB, cough. No concerns from nursing. Family History: Unchanged from Admission Social History: Unchanged from Admission Past Medical History: Unchanged from Admission Objective Active Medications: Atorvastatin Calcium (Lipitor*) 40 mg PO DAILY [facility] Clopidogrel Bisulfate (Plavix Tab*) 75 mg PO DAILY [facility] Famotidine (Pepcid Iv*) 20 mg IV SLOW PU DAILY [facility] Finasteride (Proscar Tab*) 5 mg PO DAILY [facility] Fludrocortisone Acetate (Florinef Tab*) 0.1 mg PO DAILY [facility] Gabapentin (Neurontin Cap(*)) 600 mg PO 1200 [facility] Gabapentin (Neurontin Cap(*)) 1,200 mg PO 2100 [facility] Heparin Sodium (Porcine) (Heparin Vial(*)) 5,000 units SUBCUT Q8HR [facility] Hydralazine HCl (Apresoline Iv*) 10 mg IV SLOW PU Q6H PRN SBP>180 Hydromorphone HCl (Dilaudid Inj*) 0.5 mg IV SLOW PU Q2HR PRN PAIN - MODERATE Ceftriaxone Sodium 2 gm/ (Sodium Chloride) 100 mls @ 200 mls/hr IVPB Q24H [facility] Potassium Chloride/Dextrose (D5w 1/2 Ns Kcl 20 Meq 1000 Ml*) 1,000 mls @ 60 mls /hr IV PER RATE [facility] Potassium Chloride (Potassium Chloride 20 Meq/100 Ml Ivpremix*) 20 meq in 100 mls @ 50 mls/hr IV Q2H [facility] Levetiracetam (Keppra Xr (Nf)) 750 mg PO BID [facility]; Protocol Magnesium Oxide (Magox 400 Tab*) 400 mg PO BID [facility] Metoprolol Tartrate (Lopressor Iv*) 5 mg IV Q6H PRN BLOOD PRESSURE Ondansetron HCl (Zofran Inj*) 4 mg IV Q4H PRN NAUSEA Pantoprazole Sodium (Protonix Tab*) 40 mg PO DAILY [facility] Potassium Chloride (Klor Con Er Tab*) 10 meq PO BID [facility] Prednisone (Deltasone 5 Mg Tab) 5 mg PO DAILY [facility] Vital Signs - 8 hr 01/12/20 01/12/20 01/12/20 03:46 07:24 08:39 Temperature 97.6 F 98.0 F Pulse Rate 72 75 Respiratory 18 18 20 Rate Blood Pressure 145/70 140/68 (mmHg) O2 Sat by Pulse 95 99 Oximetry Oxygen Devices in Use Now: None Appearance: Elderly male lying in bed in NAD Neck: NL Appearance and Movements; NL JVP, Trachea Midline Respiratory: Symmetrical Chest Expansion and Respiratory Effort, Clear to Auscultation Cardiovascular: NL Sounds; No Murmurs; No JVD, RRR Abdominal: - - Soft, tender to light palpation throughout, hypoactive BS Extremities: No Edema Neurological: - - Oriented to self and place Lines/Tubes/Other Access: Clean, Dry and Intact Peripheral IV Result Diagrams: 01/12/20 05:56 01/12/20 05:56 Assess/Plan/Problems-Billing Assessment: Mr. Tong is a 79 yo M with PMH of PAD, cutaneous T cell lymphoma, possible autonomic dysfunction with alternating hypertension and hypotension, osteoprosis , lumbar radiculopathy, polymyalgia rheumatica on years of steroid, secondary adrenal insufficiency, ?seizure on Keppra prophylactically; presented with acute onset of abdominal pain with N&V for 1 day, found to have SBO, cause unclear. - Patient Problems (1) Small bowel ischemia Code(s): K55.9 - VASCULAR DISORDER OF INTESTINE, UNSPECIFIED Comment: - POD #3 small bowel resection and hernia repair - Management per Surgery - Clear liquids per Surgery - Continue famotidine, hydromorphone (2) Small bowel obstruction Code(s): K56.609 - UNSP INTESTNL OBST, UNSP TO PARTIAL VERSUS COMPLETE OBST Comment: - Presented with abdominal pain - CT on admission showing SBO with transition point in the left mid abdomen - Secondary to ischemic bowel - Plan as above (3) Leukocytosis Code(s): D72.829 - ELEVATED WHITE BLOOD CELL COUNT, UNSPECIFIED Comment: - Resolved - Likely secondary to bowel ischemia - 2/4 BC + for Staph, likely a contaminant - D/c ceftriaxone and trend CBC (4) Acute blood loss anemia Code(s): D62 - ACUTE POSTHEMORRHAGIC ANEMIA Comment: - H&H stable - Will transfuse for Hgb <7 (5) CATHERINE (acute kidney injury) Code(s): N17.9 - ACUTE KIDNEY FAILURE, UNSPECIFIED Comment: - Resolved (6) Hypertension Code(s): I10 - ESSENTIAL (PRIMARY) HYPERTENSION Comment: - Normotensive today - Hypertension history remotely, recently alternating hypotension and hypertension ?autonomic dysfunction (was more hypotensive at home, therefore fludrocortisone and Na tablet was started) - Hemodynamically stable now, watch BP closely - Continue hydralazine PRN (7) Compression fracture of L1 lumbar vertebra Code(s): S32.010A - WEDGE COMPRESSION FRACTURE OF FIRST LUMBAR VERTEBRA, INIT Comment: - Acute back pain for 1.5 week with incidental finding in CT, consistent with acute compression fracture - Neurosurgery recommending TLSO brace - Need to discuss osteoprosis tx options outpatient - Continue hydromorphone (8) Seizure disorder Code(s): G40.909 - EPILEPSY, UNSP, NOT INTRACTABLE, WITHOUT STATUS EPILEPTICUS Comment: - Continue Keppra (9) Polymyalgia rheumatica Code(s): M35.3 - POLYMYALGIA RHEUMATICA Comment: - Continue prednisone (10) Peripheral arterial disease Code(s): I73.9 - PERIPHERAL VASCULAR DISEASE, UNSPECIFIED Comment: - Continue Plavix, gabapentin (11) DVT prophylaxis Code(s): Z29.9 - ENCOUNTER FOR PROPHYLACTIC MEASURES, UNSPECIFIED Comment: - Heparin SQ (12) DNR (do not resuscitate) Comment: Status and Disposition: Inpatient. Anticipate d/c home vs [facility] when medically stable and cleared by Surgery. Attending: Wilfrido Barron
[2020-01-12] MEDS: KCL 20 MEQ/100 ML IVPREMIX* 20 MEQ/100 ML BAG IV SCH ×2 (10:17→12:13)
[2020-01-12] MEDS: Gabapentin CAP(*) 300 MG PO SCH (12:13)
--- NOTE | 2020-01-12 17:48 | CONS ---
NEUROLOGY CONSULTATION NOTE: DATE OF CONSULT: 01/12/20 CONSULTING PROVIDER: Page Shoemaker NP REASON FOR CONSULT: Episode of confusion. CHIEF COMPLAINT: Abdominal pain. HISTORY OF PRESENT ILLNESS: Mr. John Tong is an 79-year-old right- handed man who presented to [facility] on 01/07/20 with a 1-day history of worsening abdominal pain. CT scan of the abdomen was obtained and showed evidence of a small bowel obstruction. He underwent small bowel resection and he is postop day #3. The patient does have history of epilepsy. During the hospitalization, the patient has been reported to be more confused. This was reported and noted on 01/10/20. The patient was needing Dilaudid for pain control. After reducing the Dilaudid, the patient was more awake and alert. There was no reported seizure-like activity. The patient does have history of epilepsy, but has not had any recent seizures. Please note that the patient is taking levetiracetam 750 mg twice daily. The patient's levetiracetam was not given today from what I can see on the MAR. The patient is resting comfortably today and has no complaints. He denied any recent seizures. He does not know when he had his last seizure. He is compliant to the levetiracetam regularly. I contacted his spouse to obtain further history, but there was no response. Therefore, the history was mostly obtained by reviewing the electronic medical records and discussing the case with the patient. The patient denied any tremors or chronic constipation. 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 PAST SURGICAL HISTORY: Right [id number] amputation and left hydrocele repair. HOME MEDICATIONS: 1. Finasteride 5 mg p.o. daily. 2. Gabapentin 600 mg in afternoon and 1200 mg at night. 3. Levetiracetam 750 mg p.o. b.i.d. 4. 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 5. Sildenafil 5 mg tabs p.o. daily. 6. Oxycodone 5 mg p.o. every 4 hours as needed. 7. Fludrocortisone 0.1 mg p.o. daily. 8. Clopidogrel 75 mg p.o. daily. ALLERGIES: ALENDRONATE, AZATHIOPRINE, BENAZEPRIL, CELECOXIB. FAMILY HISTORY: No family history of stroke or seizures. SOCIAL HISTORY: He lives with his and he quit smoking in the 70s. He denied any excessive alcohol use. REVIEW OF SYSTEMS: A 12-point review of systems was obtained and otherwise negative except for what was mentioned in the HPI. PHYSICAL EXAM: Vitals: Temperature of 99.9, heart rate of 84, respiratory rate of 16, oxygen saturation of 99%, blood pressure of 135/79. General: A frail ill- appearing elderly man who is in mild distress due to abdominal pain. Head: Atraumatic, normocephalic without any obvious abnormality. Neck is supple and symmetrical with no carotid bruits. Eyes: Conjunctivae/corneas are clear. Pulmonary: Clear to auscultation bilaterally. Cardiovascular: Regular rate and rhythm with normal S1, S2. Extremities: [id number] amputation on the right. No hammertoes on the left. Skin: No skin lesions or lacerations. Abdomen: Intact jaycee from recent surgery. No erythema or swelling. Psych: Affect is broad. Normal mood. Neurological Examination: Mental Status: Awake , alert, and oriented to person, place, time, and general circumstances. He has got a hypophonic and bradyphrenia in speech. No aphasia. He has got masked appearance. No tremors. Mild bradykinesia, but improved after he was awaken because he was slightly drowsy when I assessed him. Cranial Nerves: Pupils equal, round, and reactive to light. Extraocular muscles are intact. There is no facial asymmetry. Tongue is symmetric and midline with no atrophy or fasciculation. Motor examination intact and intact gravity in all 4 extremities. Minimal movement in the lower extremities due to the recent abdominal surgery and abdominal pain. Sensation is intact throughout to light touch and pinprick. Coordination: Normal [id number] bilaterally. Gait was not assessed as the patient is wheelchair bound due to right below-knee amputation. DIAGNOSTIC STUDIES: CT head was obtained on 01/08/20 and showed no evidence of acute intracranial abnormality. He has a subtle age related diffuse cerebral volume loss and chronic microvascular ischemic changes. ASSESSMENT AND RECOMMENDATIONS: Mr. John Tong is an 79-year-old man with recent diagnosis of small bowel obstruction, status post small bowel resection, who also has history of ill-defined epilepsy with an episode of increased confusion during the hospitalization that was thought to be related to narcotic therapy. The patient has not had any reported seizures. He is on a good dose of levetiracetam, although it has not been given today possibly due to the patient's reduced oral intake. I will convert the levetiracetam to IV form to prevent any potential withdrawal seizures. Furthermore, I encourage early ambulation and working with Physical Therapy when deemed safe by the surgical team. The patient had subtle signs of potential bradykinesia, masked facies, and hypophonia, which raise the concern for an underlying neurodegenerative disorder; however, this can be further evaluated after his surgery and while he is off narcotic therapy as an outpatient. Please continue the levetiracetam 750 b.i.d. without increasing the dose as I do not suspect the patient had seizures. Please convert the levetiracetam back to p.o. once the patient is able to tolerate oral intake. The patient is also on a good dose of gabapentin which could be also effective for seizure prevention. Continue neuro checks every 4 hours. Please contact me for any questions or concerns. [id number]/CPS #: [id number] DANA
[2020-01-12] MEDS: levETIRAcetam IV* 750 MG in NS 0.9% 100 ML* 100 ML IVPB SCH (18:02)
[2020-01-12] MEDS: Gabapentin CAP(*) 400 MG PO SCH (19:59)
[2020-01-13] MEDS: D5W 1/2 NS KCl 20 Meq 1000 ML* 1,000 ML IV SCH (01:15)
[2020-01-13] MEDS: HYDROmorphone INJ* 0.5 MG/0.5 ML SYRINGE IV SLOW PU PRN ×2 (04:45→10:07)
[2020-01-13] MEDS ORDERED: NS 0.9% 100 ML* 100 ML ONE (05:46)
[2020-01-13] MEDS: levETIRAcetam IV* 750 MG in NS 0.9% 100 ML* 100 ML IVPB SCH ×2 (05:49→17:45)
[2020-01-13] MEDS: Heparin VIAL(*) 5000 UNITS/ML VIAL (FIVE THOUSAND) SUBCUT SCH ×3 (05:50→22:53)
[2020-01-13 06:20] LABS: ABS Eosinophils 0.2 10^3/ul (0-0.6); ABS Lymphocytes 0.9 10^3/ul (1.0-4.8); ABS Neutrophils 6.7 10^3/ul (1.5-7.7); Eosinophil % 2.3 %; Hematocrit 33 % (42-52); Hemoglobin 11.1 g/dL (14.0-18.0); Lymphocyte % 10.3 %; Mean Corpuscular HGB Conc 34 g/dL (31-36); Mean Corpuscular Hemoglobin 28 pg (27-31); Mean Corpuscular Volume 82 fL (80-94); Mean Platelet Volume 6.8 fL (7.4-10.4); Platelet Count 296 10^3/uL (150-450); Red Blood Count 3.99 10^6 /uL (4.18-5.48); Red Cell Distribution Width 17 % (10-15); White Blood Count 8.8 10^3/uL (3.5-10.8)
[2020-01-13 06:39] LABS: BUN/Creatinine Ratio 24.6 (8-20); Calcium 7.9 mg/dL (8.6-10.3); EGFR African American 133.5 (>60); EGFR Non-African American 110.3 (>60); Potassium 3.8 mmol/L (3.5-5.0)
[2020-01-13] MEDS: Ondansetron INJ* 2 MG/ML VIAL IV PRN (10:08)
[2020-01-13] MEDS: Finasteride TAB* 5 MG PO SCH (10:10)
[2020-01-13] MEDS: Magnesium Oxide TAB* 400 MG PO SCH ×2 (10:10→22:44)
[2020-01-13] MEDS: Pantoprazole TAB * 40 MG TAB PO SCH (10:10)
[2020-01-13] MEDS: Fludrocortisone Acetate TAB* 0.1 MG PO SCH (10:10)
[2020-01-13] MEDS: Atorvastatin* 40 MG TAB PO SCH (10:11)
[2020-01-13] MEDS: Potassium Chlor TAB* 10 MEQ TAB.ER PO SCH ×2 (10:11→22:44)
[2020-01-13] MEDS: Famotidine IV* 10 MG/ML 2 ML (20 mg) IV SLOW PU SCH (10:11)
[2020-01-13] MEDS: Clopidogrel TAB* 75 MG PO SCH (10:11)
[2020-01-13] MEDS ORDERED: Ketorolac INJ* 15 MG/ML 1 ML VIAL IV PUSH PRN (10:24)
--- NOTE | 2020-01-13 10:24 | PN ---
Progress Note - Progress Note Date of Service: 01/13/20 SOAP: Subjective: patient seen and examined today. Patient required hoyalift and is now in chair. is somewhat more alert today than I saw him 2 days ago. He remains forgetful. He is thirsty. He describes having abdominal pain. No headaches. No shortness of breath or chest pain. Patient is weak. Patient unsure if he has had flatus Objective: [ Temp Pulse Resp BP Pulse Ox 97.2 F 93 20 120/81 98 01/13/20 08:52 01/13/20 08:52 01/13/20 10:07 01/13/20 08:52 01/13/20 08:52 I's and O's likely not area representative since patient is incontinent. One small bowel movement today was documented. Patient does not recall. Awake and answers questions appropriately lungs decreased inspiratory effort Abdomen: Soft, distended, tympanitic, tender diffusely without rebound. Hypoactive bowel sounds. staple line intact without redness. LEFT lower extremity without edema labs noted Assessment: postop day 4 from small bowel resection. Ileus. Weak. Plan: continue clears for now. Change pain medications labs in the morning possible TPN tomorrow if he remains distended or vomits. NG tube and vomits physical therapy consult
[2020-01-13] MEDS ORDERED: HYDROmorphone INJ* 0.5 MG/0.5 ML SYRINGE IV SLOW PU PRN (10:26)
[2020-01-13] MEDS: Gabapentin CAP(*) 300 MG PO SCH (13:34)
[2020-01-13] MEDS: Ketorolac INJ* 15 MG/ML 1 ML VIAL IV PUSH SCH ×3 (13:35→22:49)
--- NOTE | 2020-01-13 18:05 | PN ---
Subjective Date of Service: 01/13/20 Interval History: Pt reports that he is feeling a little bit better presently. Pt is very sleepy awakens to verbal stimuli but falls back to sleep quickly. Pt denies any abdominal pain presently. Pt reports that he has been passing gas today. Denies chest pain, SOB, nausea. Family History: Unchanged from Admission Social History: Unchanged from Admission Past Medical History: Unchanged from Admission Objective Active Medications: Atorvastatin Calcium (Lipitor*) 40 mg PO DAILY [facility] Last Admin: 01/13/20 10:11 Dose: 40 mg Clopidogrel Bisulfate (Plavix Tab*) 75 mg PO DAILY [facility] Last Admin: 01/13/20 10:11 Dose: 75 mg Famotidine (Pepcid Iv*) 20 mg IV SLOW PU DAILY [facility] Last Admin: 01/13/20 10:11 Dose: Not Given Finasteride (Proscar Tab*) 5 mg PO DAILY [facility] Last Admin: 01/13/20 10:10 Dose: 5 mg Fludrocortisone Acetate (Florinef Tab*) 0.1 mg PO DAILY [facility] Last Admin: 01/13/20 10:10 Dose: 0.1 mg Gabapentin (Neurontin Cap(*)) 600 mg PO 1200 [facility] Last Admin: 01/13/20 13:34 Dose: 600 mg Gabapentin (Neurontin Cap(*)) 1,200 mg PO 2100 [facility] Last Admin: 01/12/20 19:59 Dose: 1,200 mg Heparin Sodium (Porcine) (Heparin Vial(*)) 5,000 units SUBCUT Q8HR [facility] Last Admin: 01/13/20 13:35 Dose: 5,000 units Hydralazine HCl (Apresoline Iv*) 10 mg IV SLOW PU Q6H PRN PRN Reason: SBP>180 Last Admin: 01/10/20 07:57 Dose: 10 mg Hydromorphone HCl (Dilaudid Inj*) 0.5 mg IV SLOW PU Q2HR PRN PRN Reason: PAIN - SEVERE Levetiracetam 750 mg/ Sodium (Chloride) 107.5 mls @ 430 mls/hr IVPB Q12H [facility] Last Admin: 01/13/20 05:49 Dose: 430 mls/hr Ketorolac Tromethamine (Toradol Inj*) 15 mg IV PUSH Q6H [facility] Stop: 01/16/20 07:00 Last Admin: 01/13/20 17:16 Dose: 15 mg Magnesium Oxide (Magox 400 Tab*) 400 mg PO BID [facility] Last Admin: 01/13/20 10:10 Dose: 400 mg Metoprolol Tartrate (Lopressor Iv*) 5 mg IV Q6H PRN PRN Reason: BLOOD PRESSURE Last Admin: 01/10/20 00:06 Dose: 5 mg Ondansetron HCl (Zofran Inj*) 4 mg IV Q4H PRN PRN Reason: NAUSEA Last Admin: 01/13/20 10:08 Dose: 4 mg Oxycodone/Acetaminophen (Percocet 5/325 Tab*) 1 tab PO Q4H PRN PRN Reason: PAIN - MODERATE Pantoprazole Sodium (Protonix Tab*) 40 mg PO DAILY [facility] Last Admin: 01/13/20 10:10 Dose: 40 mg Potassium Chloride (Klor Con Er Tab*) 10 meq PO BID [facility] Last Admin: 01/13/20 10:11 Dose: 10 meq Prednisone (Deltasone 5 Mg Tab) 5 mg PO DAILY [facility] Last Admin: 01/13/20 10:11 Dose: 5 mg Vital Signs - 8 hr 01/13/20 01/13/20 01/13/20 10:07 13:34 16:37 Temperature 98.1 F Pulse Rate 85 Respiratory 20 20 16 Rate Blood Pressure 105/57 (mmHg) O2 Sat by Pulse 100 Oximetry Oxygen Devices in Use Now: None Appearance: Elderly gentleman sleeping in bed, does not appear to be in any distress Eyes: No Scleral Icterus, PERRLA Ears/Nose/Mouth/Throat: NL Teeth, Lips, Gums, Clear Oropharnyx, Mucous Membranes Moist Neck: NL Appearance and Movements; NL JVP, Trachea Midline, No Thyroid Enlargement, Masses Respiratory: Symmetrical Chest Expansion and Respiratory Effort, Clear to Auscultation Cardiovascular: NL Sounds; No Murmurs; No JVD, RRR, No Edema Abdominal: NL Sounds; No Tenderness; No Distention, No Hepatosplenomegaly, - - Hyper active bowel sounds x 4 quads. Pt had large loose BM. surgical wounds well healing, jaycee intact no drainage noted from incisions. Lymphatic: No Cervical Adenopathy Extremities: No Edema, No Clubbing, Cyanosis Skin: No Rash or Ulcers, No Nodules or Sclerosis Neurological: Alert and Oriented x 3, NL Sensation, NL Muscle Strength and Tone , - - pt oriented to self place year and date. Initially patient needed some prompting to recall month however pt was able to state month when asked what holiday just passed. Nutrition: Taking PO's Result Diagrams: 01/13/20 05:43 01/13/20 05:45 Microbiology and Other Data: Microbiology 01/08/20 09:04 Aerobic Blood Culture - Final Blood Venous No Growth Day 5 Anaerobic Blood Culture - Final No Growth Day 5 01/07/20 05:39 Aerobic Blood Culture - Final Blood Venous No Growth Day 5 Anaerobic Blood Culture - Final No Growth Day 5 01/10/20 16:30 Urine Culture - Final Urine No Growth (<1,000 CFU/mL) 01/07/20 05:50 Aerobic Blood Culture - Final Blood Venous Staphylococcus Hominis Anaerobic Blood Culture - Final Staphylococcus Hominis Blood MRSA/MSSA (PCR) - Final Mrsa Negative S.aureus Negative 01/07/20 05:50 Blood MRSA/MSSA (PCR) - Final Blood Venous Mrsa Negative S.aureus Negative 01/07/20 11:33 Stool Occult Blood (ALEKSANDR) - Final Stool Diagnostic Imaging: CTAP: 1. small bowel obstruction with a transition annotated in the left mid abdomen 2. small volume ascites 3. osteopenia with compression fracture in L1 (acute appearing) 4. prostamegaly Assess/Plan/Problems-Billing Assessment: Mr. Tong is a 79 yo M with PMH of PAD, cutaneous T cell lymphoma, possible autonomic dysfunction with alternating hypertension and hypotension, osteoprosis , lumbar radiculopathy, polymyalgia rheumatica on years of steroid, secondary adrenal insufficiency, ?seizure on Keppra prophylactically; presented with acute onset of abdominal pain with N&V for 1 day, found to have SBO, cause unclear. - Patient Problems (1) Small bowel ischemia Current Visit: Yes Comment: - POD #4 small bowel resection and hernia repair - Management per Surgery - Clear liquids per Surgery - Continue famotidine, hydromorphone. If patient will tolerate ketoralac this would be preferred as risk for constipation is increased with hydromorphone. (2) Small bowel obstruction Current Visit: Yes Status: Acute Code(s): K56.609 - UNSP INTESTNL OBST, UNSP TO PARTIAL VERSUS COMPLETE OBST Comment: - POD #4 Pt is progressing well. - Loose bowel movement this AM and again this afternoon large loose BM. -Managed by surgery (3) Acute blood loss anemia Current Visit: Yes Comment: - H&H stable - Will transfuse for Hgb <7 (4) Compression fracture of L1 lumbar vertebra Current Visit: Yes Comment: - Acute back pain for 1.5 week with incidental finding in CT, consistent with acute compression fracture - Neurosurgery recommending TLSO brace -For concern of constipation cutting back on hydromorphone and replacing with tordal. pt is tolerating medication change well. - Need to discuss osteoprosis tx options outpatient (5) Hypertension Current Visit: Yes Comment: - Remains normotensive today will continue current regimen - Hypertension history remotely, recently alternating hypotension and hypertension ?autonomic dysfunction (was more hypotensive at home, therefore fludrocortisone and Na tablet was started) - Hemodynamically stable now, watch BP closely - Continue hydralazine PRN (6) Polymyalgia rheumatica Current Visit: No Comment: - Continue prednisone (7) Seizure disorder Current Visit: No Comment: - Continue Keppra - Change IV keppra to PO keppra as patient is tolerating PO medications presently. 750mg PO BID (8) DNR (do not resuscitate) Current Visit: Yes Comment: (9) DVT prophylaxis Current Visit: Yes Comment: - Heparin SQ Status and Disposition: Inpatient. Anticipate d/c home vs [facility] when medically stable and cleared by Surgery.
[2020-01-13] MEDS: Gabapentin CAP(*) 400 MG PO SCH (22:43)
[2020-01-13] MEDS: levETIRAcetam TAB* 500 MG PO SCH (22:44)
[2020-01-14] MEDS ORDERED: NS 0.9% 1000 ML** 1,000 ML IV ONE (00:33)
[2020-01-14] MEDS: Ketorolac INJ* 15 MG/ML 1 ML VIAL IV PUSH SCH ×4 (05:35→23:18)
[2020-01-14] MEDS: Heparin VIAL(*) 5000 UNITS/ML VIAL (FIVE THOUSAND) SUBCUT SCH ×3 (05:42→22:19)
[2020-01-14 06:15] LABS: Albumin 2.2 g/dL (3.2-5.2); Albumin/Globulin Ratio 0.9 (1-3); BUN/Creatinine Ratio 25.7 (8-20); Calcium 7.6 mg/dL (8.6-10.3); EGFR African American 131.3 (>60); EGFR Non-African American 108.5 (>60); Globulin 2.4 g/dL (2-4); Magnesium 1.7 mg/dL (1.9-2.7); Phosphorus 2.6 mg/dL (2.5-5.0); Potassium 4.1 mmol/L (3.5-5.0); Total Bilirubin 0.7 mg/dL (0.2-1.0); Total Protein 4.6 g/dL (6.4-8.9)
[2020-01-14] MEDS ORDERED: Magnesium Sulfate 2 GM IV* 2 GM/50 ML BAG IVPB ONE (07:18)
--- NOTE | 2020-01-14 09:30 | PN ---
Progress Note - Progress Note Date of Service: 01/14/20 Note: S: Pt more alert than previous days. Passing loose BMs, he is unsure if passing flatus. ABD pain slowly improving. Tolerating clear liquid diet, though states not much of appetite. Denies nausea, emesis, fever, SOB. O: Temp Pulse Resp BP Pulse Ox 98.7 F 67 16 131/62 100 01/14/20 09:15 01/14/20 09:15 01/14/20 09:15 01/14/20 09:15 01/14/20 09:15 Intake and Output Last 24 Hours 01/12/20 01/13/20 01/14/20 01/15/20 06:59 06:59 06:59 06:59 Intake Total 1093 1380 3931 Output Total 2400 250 275 Balance -1307 1130 3656 Intake: IV Fluids 1093 1080 1964 20 MeQ KCL 100 NS (0.9%) 100 990 d5 1/2 ns 20k 993 980 974 IVPB 200 107 20 MeQ KCL 200 Keppra 107 Oral 0 100 1860 Output: Urine 350 250 275 Edwards 0 Other: Estimated Void Large Large Medium Date of Last Bowel 01/13/20 01/13/2020 Movement # Bowel Movements 1 Estimated Stool Amount Medium Large # Voids 3 1 1 PEX General: Alert, in NAD. HEENT: PERRLA. Heart: RRR Lungs: CTAB ABD: BS present. Soft. Distended and tympanitic, though less so than previous days. Tender diffusely. No guarding or rebound tenderness. Incisions with jaycee, no erythema, warmth, or discharge. Extremities: No edema. Left calf soft and nontender. Distal pulses intact BL. Assessment and plan: 79 M s/p small bowel resection POD 5. Ileus could be slowly resolving. Continue clear liquid diet for now. If he begins vomiting, recommend NG tube.
[2020-01-14] MEDS: Potassium Chlor TAB* 10 MEQ TAB.ER PO SCH ×2 (09:45→22:13)
[2020-01-14] MEDS: Magnesium Oxide TAB* 400 MG PO SCH ×2 (09:45→22:12)
[2020-01-14] MEDS: Finasteride TAB* 5 MG PO SCH (09:45)
[2020-01-14] MEDS: Atorvastatin* 40 MG TAB PO SCH (09:45)
[2020-01-14] MEDS: Pantoprazole TAB * 40 MG TAB PO SCH (09:45)
[2020-01-14] MEDS: Clopidogrel TAB* 75 MG PO SCH (09:45)
[2020-01-14] MEDS: Fludrocortisone Acetate TAB* 0.1 MG PO SCH (09:46)
[2020-01-14] MEDS: levETIRAcetam TAB* 500 MG PO SCH ×2 (09:46→22:12)
[2020-01-14] MEDS: Famotidine IV* 10 MG/ML 2 ML (20 mg) IV SLOW PU SCH ×2 (09:54→10:48)
[2020-01-14] MEDS: Gabapentin CAP(*) 300 MG PO SCH (12:59)
--- NOTE | 2020-01-14 18:13 | PN ---
Subjective Date of Service: 01/14/20 Interval History: Pt is much more alert that previous encounter. Pt is alert and oriented x 3. Very talkative. Pt reports that he continues to have loose BM's and is uncertain if he will be passing gas or moving bowels. Pt reports that he is incontinent of stools at times. Pt denies any discomfort presently states that pain medication is working well. Pt denies any chest pain, SOB, dizziness. Family History: Unchanged from Admission Social History: Unchanged from Admission Past Medical History: Unchanged from Admission Objective Active Medications: Atorvastatin Calcium (Lipitor*) 40 mg PO DAILY [facility] Last Admin: 01/14/20 09:45 Dose: 40 mg Clopidogrel Bisulfate (Plavix Tab*) 75 mg PO DAILY [facility] Last Admin: 01/14/20 09:45 Dose: 75 mg Famotidine (Pepcid Iv*) 20 mg IV SLOW PU DAILY [facility] Last Admin: 01/14/20 10:48 Dose: Not Given Finasteride (Proscar Tab*) 5 mg PO DAILY [facility] Last Admin: 01/14/20 09:45 Dose: 5 mg Fludrocortisone Acetate (Florinef Tab*) 0.1 mg PO DAILY [facility] Last Admin: 01/14/20 09:46 Dose: 0.1 mg Gabapentin (Neurontin Cap(*)) 600 mg PO 1200 [facility] Last Admin: 01/14/20 12:59 Dose: 600 mg Gabapentin (Neurontin Cap(*)) 1,200 mg PO 2100 [facility] Last Admin: 01/13/20 22:43 Dose: 1,200 mg Heparin Sodium (Porcine) (Heparin Vial(*)) 5,000 units SUBCUT Q8HR [facility] Last Admin: 01/14/20 15:01 Dose: 5,000 units Hydralazine HCl (Apresoline Iv*) 10 mg IV SLOW PU Q6H PRN PRN Reason: SBP>180 Last Admin: 01/10/20 07:57 Dose: 10 mg Hydromorphone HCl (Dilaudid Inj*) 0.5 mg IV SLOW PU Q2HR PRN PRN Reason: PAIN - SEVERE Ketorolac Tromethamine (Toradol Inj*) 15 mg IV PUSH Q6H [facility] Stop: 01/16/20 07:00 Last Admin: 01/14/20 17:21 Dose: 15 mg Levetiracetam (Keppra Tab*) 750 mg PO BID [facility] Last Admin: 01/14/20 09:46 Dose: 750 mg Magnesium Oxide (Magox 400 Tab*) 400 mg PO BID [facility] Last Admin: 01/14/20 09:45 Dose: 400 mg Metoprolol Tartrate (Lopressor Iv*) 5 mg IV Q6H PRN PRN Reason: BLOOD PRESSURE Last Admin: 01/10/20 00:06 Dose: 5 mg Ondansetron HCl (Zofran Inj*) 4 mg IV Q4H PRN PRN Reason: NAUSEA Last Admin: 01/13/20 10:08 Dose: 4 mg Oxycodone/Acetaminophen (Percocet 5/325 Tab*) 1 tab PO Q4H PRN PRN Reason: PAIN - MODERATE Pantoprazole Sodium (Protonix Tab*) 40 mg PO DAILY [facility] Last Admin: 01/14/20 09:45 Dose: 40 mg Potassium Chloride (Klor Con Er Tab*) 10 meq PO BID [facility] Last Admin: 01/14/20 09:45 Dose: 10 meq Prednisone (Deltasone 5 Mg Tab) 5 mg PO DAILY [facility] Last Admin: 01/14/20 09:45 Dose: 5 mg Vital Signs - 8 hr 01/14/20 01/14/20 01/14/20 11:56 12:59 15:30 Temperature 98.5 F 98.3 F Pulse Rate 57 60 Respiratory 16 20 16 Rate Blood Pressure 150/63 154/61 (mmHg) O2 Sat by Pulse 100 94 Oximetry 01/14/20 01/14/20 16:00 16:13 Temperature Pulse Rate Respiratory 20 Rate Blood Pressure (mmHg) O2 Sat by Pulse 94 Oximetry Oxygen Devices in Use Now: None Appearance: Elderly gentleman appearing stated age. Sitting up in bed eating dinner. Does not appear to be in any distress. Eyes: No Scleral Icterus, PERRLA Ears/Nose/Mouth/Throat: NL Teeth, Lips, Gums, Clear Oropharnyx, Mucous Membranes Moist Neck: NL Appearance and Movements; NL JVP, Trachea Midline, No Thyroid Enlargement, Masses Respiratory: Symmetrical Chest Expansion and Respiratory Effort, Clear to Auscultation Cardiovascular: NL Sounds; No Murmurs; No JVD, RRR, No Edema Abdominal: NL Sounds; No Tenderness; No Distention - Mild distension noted. Ryley remain intact at umbilicus and right quadrant. Wounds are well approximated no evidence of infection or drainage noted. , No Hepatosplenomegaly Extremities: No Edema, No Clubbing, Cyanosis, - - RBKA. Left foot is warm and pale which is normal for patient. Pedal pulse is very faint to palpation. Skin: No Rash or Ulcers, No Nodules or Sclerosis Neurological: Alert and Oriented x 3, NL Sensation, NL Muscle Strength and Tone Nutrition: Taking PO's Result Diagrams: 01/13/20 05:43 01/14/20 05:31 Microbiology and Other Data: Microbiology 01/08/20 09:04 Aerobic Blood Culture - Final Blood Venous No Growth Day 5 Anaerobic Blood Culture - Final No Growth Day 5 01/07/20 05:39 Aerobic Blood Culture - Final Blood Venous No Growth Day 5 Anaerobic Blood Culture - Final No Growth Day 5 01/10/20 16:30 Urine Culture - Final Urine No Growth (<1,000 CFU/mL) 01/07/20 05:50 Aerobic Blood Culture - Final Blood Venous Staphylococcus Hominis Anaerobic Blood Culture - Final Staphylococcus Hominis Blood MRSA/MSSA (PCR) - Final Mrsa Negative S.aureus Negative 01/07/20 05:50 Blood MRSA/MSSA (PCR) - Final Blood Venous Mrsa Negative S.aureus Negative 01/07/20 11:33 Stool Occult Blood (ALEKSANDR) - Final Stool Diagnostic Imaging: CTAP: 1. small bowel obstruction with a transition annotated in the left mid abdomen 2. small volume ascites 3. osteopenia with compression fracture in L1 (acute appearing) 4. prostamegaly Assess/Plan/Problems-Billing Assessment: Mr. Tong is a 79 yo M with PMH of PAD, cutaneous T cell lymphoma, possible autonomic dysfunction with alternating hypertension and hypotension, osteoprosis , lumbar radiculopathy, polymyalgia rheumatica on years of steroid, secondary adrenal insufficiency, ?seizure on Keppra prophylactically; presented with acute onset of abdominal pain with N&V for 1 day, found to have SBO, cause unclear. - Patient Problems (1) Small bowel ischemia Current Visit: Yes Comment: - POD #5 small bowel resection and hernia repair - Management per Surgery - Clear liquids per Surgery - Continue famotidine - Pain is well controlled with ketoralac (2) Small bowel obstruction Current Visit: Yes Status: Acute Code(s): K56.609 - UNSP INTESTNL OBST, UNSP TO PARTIAL VERSUS COMPLETE OBST Comment: - POD #5 Pt is progressing well. - Pt reports multiple loose BM's today also passing flatus. Denies abdominal pain. - Taking clears without issue. -Managed by surgery (3) Acute blood loss anemia Current Visit: Yes Comment: -Will recheck CBC in AM - H&H stable - Will transfuse for Hgb <7 (4) Compression fracture of L1 lumbar vertebra Current Visit: Yes Comment: -Pt without complaints of back pain at this time. - Acute back pain for 1.5 week with incidental finding in CT, consistent with acute compression fracture - Neurosurgery recommending TLSO brace -For concern of constipation cutting back on hydromorphone and replacing with tordal. pt is tolerating medication change well. - Need to discuss osteoprosis tx options outpatient (5) Hypertension Current Visit: Yes Comment: - Remains normotensive today with mild elevatioins will continue current regimen - Hypertension history remotely, recently alternating hypotension and hypertension ?autonomic dysfunction (was more hypotensive at home, therefore fludrocortisone and Na tablet was started) - Hemodynamically stable now, watch BP closely - Continue hydralazine PRN (6) Polymyalgia rheumatica Current Visit: No Comment: - Continue prednisone (7) Seizure disorder Current Visit: No Comment: - Continue Keppra - Tolerating PO Keppra (8) DNR (do not resuscitate) Current Visit: Yes Comment: (9) DVT prophylaxis Current Visit: Yes Comment: - Heparin SQ Status and Disposition: Inpatient. Anticipate d/c home vs [facility] when medically stable and cleared by Surgery.
[2020-01-14] MEDS: Gabapentin CAP(*) 400 MG PO SCH (22:13)
[2020-01-15] MEDS: Ketorolac INJ* 15 MG/ML 1 ML VIAL IV PUSH SCH ×3 (05:47→17:11)
[2020-01-15] MEDS: Heparin VIAL(*) 5000 UNITS/ML VIAL (FIVE THOUSAND) SUBCUT SCH ×3 (05:50→21:28)
[2020-01-15 08:19] LABS: ABS Eosinophils 0.2 10^3/ul (0-0.6); ABS Monocytes 0.7 10^3/ul (0-0.8); ABS Neutrophils 5.4 10^3/ul (1.5-7.7); Eosinophil % 2.9 %; Hematocrit 27 % (42-52); Lymphocyte % 13.4 %; Mean Corpuscular HGB Conc 34 g/dL (31-36); Mean Corpuscular Hemoglobin 28 pg (27-31); Mean Corpuscular Volume 82 fL (80-94); Mean Platelet Volume 6.7 fL (7.4-10.4); Platelet Count 245 10^3/uL (150-450); Red Blood Count 3.25 10^6 /uL (4.18-5.48); Red Cell Distribution Width 16 % (10-15); White Blood Count 7.3 10^3/uL (3.5-10.8)
[2020-01-15 08:29] LABS: Calcium 7.5 mg/dL (8.6-10.3); EGFR African American 153.9 (>60); EGFR Non-African American 127.2 (>60); Magnesium 1.8 mg/dL (1.9-2.7); Potassium 3.3 mmol/L (3.5-5.0)
[2020-01-15] MEDS: Magnesium Oxide TAB* 400 MG PO SCH ×2 (08:49→21:21)
[2020-01-15] MEDS: Atorvastatin* 40 MG TAB PO SCH (08:49)
[2020-01-15] MEDS: Fludrocortisone Acetate TAB* 0.1 MG PO SCH (08:49)
[2020-01-15] MEDS: Clopidogrel TAB* 75 MG PO SCH (08:50)
[2020-01-15] MEDS: Potassium Chlor TAB* 10 MEQ TAB.ER PO SCH ×2 (08:50→21:20)
[2020-01-15] MEDS: levETIRAcetam TAB* 500 MG PO SCH ×2 (08:50→21:21)
[2020-01-15] MEDS: Finasteride TAB* 5 MG PO SCH (08:50)
[2020-01-15] MEDS: Pantoprazole TAB * 40 MG TAB PO SCH (08:50)
[2020-01-15] MEDS: Famotidine IV* 10 MG/ML 2 ML (20 mg) IV SLOW PU SCH (08:53)
[2020-01-15] MEDS ORDERED: Magnesium Sulfate 2 GM IV* 2 GM/50 ML BAG IVPB ONE (10:21)
--- NOTE | 2020-01-15 11:12 | PN ---
Progress Note - Progress Note Date of Service: 01/15/20 Note: S: POD #6. Continues to feel better, though still not much appetite and very weak. Seen by PT this a.m.: will definitely need some form of short term rehab. ([facility] referral placed.) Margot clear liqs w/o N/V. Passing both flatus and loose stool. O: Vital Signs - 8 hr 01/15/20 01/15/20 03:36 07:00 Temperature 97.9 F 99.2 F Pulse Rate 57 55 Respiratory 16 16 Rate Blood Pressure 156/59 156/63 (mmHg) O2 Sat by Pulse 99 100 Oximetry Intake and Output Last 24 Hours 01/13/20 01/14/20 01/15/20 01/16/20 06:59 06:59 06:59 06:59 Intake Total 1380 3931 970 240 Output Total 250 275 950 Balance 1130 3656 20 240 Intake: IV Fluids 1080 1964 NS (0.9%) 100 990 d5 1/2 ns 20k 980 974 IVPB 200 107 20 MeQ KCL 200 Keppra 107 Oral 100 1860 970 240 Output: Urine 250 275 950 Other: Estimated Void Large Medium Large Large Date of Last Bowel 01/13/20 01/13/2020 Movement # Bowel Movements 1 1 1 Estimated Stool Amount Medium Large Large Small # Voids 1 1 Gen: sitting up in chair; appears comfortable, alert and awake Heart: reg Lungs: clear upper muir; decreased at both bases Abd: surg incisions ok; no erythema. BS +. Soft; mild incisional tenderness only. Labs: Laboratory Tests 01/13/20 01/14/20 01/15/20 05:43 05:31 07:49 WBC 7.3 Hgb 11.1 L 9.0 L Hct 33 L 27 L Potassium Magnesium Albumin 2.2 L 01/15/20 07:49 WBC Hgb Hct Potassium 3.3 L Magnesium 1.8 L Albumin A: s/p SB rsxn for ischemic SB, with postop ileus which appears to be improving P: will adv to full liqs today, and soft tomorrow if tolerated; replete K and Mg ; cont PT/rehab eval
[2020-01-15] MEDS: Ondansetron INJ* 2 MG/ML VIAL IV PRN (12:06)
[2020-01-15] MEDS: KCL 20 MEQ/100 ML IVPREMIX* 20 MEQ/100 ML BAG IV SCH ×2 (12:09→15:46)
[2020-01-15] MEDS: Gabapentin CAP(*) 300 MG PO SCH (12:10)
--- NOTE | 2020-01-15 12:50 | PN ---
Progress Note - Progress Note Date of Service: 01/15/20 Note: Surgery Progress Note Patient is POD 6 from exploratory laparotomy and small bowel resection for ischemic small bowel. He has been doing fairly well. Per his nurse Phill he was very oriented and clear this morning and was sitting in a chair but now is tired and having difficulty answering questions. He does say he has had flatus and he has had recorded loose BM. He had a small volume of emesis/spit up. On exam his abdomen is mildly distended but soft, incision c/d/i, jaycee in place. Minimally tender to palpation. Plan to advance to full liquids. Patient will continue to work with PT with the hope he can be discharged to rehab.
--- NOTE | 2020-01-15 18:14 | PN ---
Subjective Date of Service: 01/15/20 Interval History: Pt continues to be be alert and oriented x 3. Pt reports that he continues to have some tenderness in abdomen. Reports that he continues to pass loose stools and flatus. Pt also very glad to be eating soft foods, so far tolerating well. Pt denies any headaches, dizziness, chest pain, or SOB. Family History: Unchanged from Admission Social History: Unchanged from Admission Past Medical History: Unchanged from Admission Objective Active Medications: Atorvastatin Calcium (Lipitor*) 40 mg PO DAILY [facility] Last Admin: 01/15/20 08:49 Dose: 40 mg Clopidogrel Bisulfate (Plavix Tab*) 75 mg PO DAILY [facility] Last Admin: 01/15/20 08:50 Dose: 75 mg Famotidine (Pepcid Iv*) 20 mg IV SLOW PU DAILY [facility] Last Admin: 01/15/20 08:53 Dose: Not Given Finasteride (Proscar Tab*) 5 mg PO DAILY [facility] Last Admin: 01/15/20 08:50 Dose: 5 mg Fludrocortisone Acetate (Florinef Tab*) 0.1 mg PO DAILY [facility] Last Admin: 01/15/20 08:49 Dose: 0.1 mg Gabapentin (Neurontin Cap(*)) 600 mg PO 1200 [facility] Last Admin: 01/15/20 12:10 Dose: Not Given Gabapentin (Neurontin Cap(*)) 1,200 mg PO 2100 [facility] Last Admin: 01/14/20 22:13 Dose: 1,200 mg Heparin Sodium (Porcine) (Heparin Vial(*)) 5,000 units SUBCUT Q8HR [facility] Last Admin: 01/15/20 13:46 Dose: 5,000 units Hydralazine HCl (Apresoline Iv*) 10 mg IV SLOW PU Q6H PRN PRN Reason: SBP>180 Last Admin: 01/10/20 07:57 Dose: 10 mg Hydromorphone HCl (Dilaudid Inj*) 0.5 mg IV SLOW PU Q2HR PRN PRN Reason: PAIN - SEVERE Ketorolac Tromethamine (Toradol Inj*) 15 mg IV PUSH Q6H [facility] Stop: 01/16/20 07:00 Last Admin: 01/15/20 17:11 Dose: 15 mg Levetiracetam (Keppra Tab*) 750 mg PO BID [facility] Last Admin: 01/15/20 08:50 Dose: 750 mg Magnesium Oxide (Magox 400 Tab*) 400 mg PO BID [facility] Last Admin: 01/15/20 08:49 Dose: 400 mg Metoprolol Tartrate (Lopressor Iv*) 5 mg IV Q6H PRN PRN Reason: BLOOD PRESSURE Last Admin: 01/10/20 00:06 Dose: 5 mg Ondansetron HCl (Zofran Inj*) 4 mg IV Q4H PRN PRN Reason: NAUSEA Last Admin: 01/15/20 12:06 Dose: 4 mg Oxycodone/Acetaminophen (Percocet 5/325 Tab*) 1 tab PO Q4H PRN PRN Reason: PAIN - MODERATE Pantoprazole Sodium (Protonix Tab*) 40 mg PO DAILY [facility] Last Admin: 01/15/20 08:50 Dose: 40 mg Potassium Chloride (Klor Con Er Tab*) 10 meq PO BID [facility] Last Admin: 01/15/20 08:50 Dose: 10 meq Prednisone (Deltasone 5 Mg Tab) 5 mg PO DAILY [facility] Last Admin: 01/15/20 08:50 Dose: 5 mg Vital Signs - 8 hr 01/15/20 01/15/20 01/15/20 11:31 12:19 15:52 Temperature 98.9 F 98.1 F Pulse Rate 73 63 Respiratory 18 18 Rate Blood Pressure 115/50 130/64 122/58 (mmHg) O2 Sat by Pulse 95 100 Oximetry 01/15/20 16:00 Temperature Pulse Rate Respiratory Rate Blood Pressure (mmHg) O2 Sat by Pulse 100 Oximetry Oxygen Devices in Use Now: None Appearance: Elderly gentleman appearing stated age sitting up in bed talking on cellphone does not appear to be in any distress. Eyes: No Scleral Icterus, PERRLA Ears/Nose/Mouth/Throat: NL Teeth, Lips, Gums, Clear Oropharnyx, Mucous Membranes Moist Neck: NL Appearance and Movements; NL JVP, Trachea Midline Respiratory: Symmetrical Chest Expansion and Respiratory Effort, Clear to Auscultation Cardiovascular: NL Sounds; No Murmurs; No JVD, RRR, No Edema Abdominal: No Hepatosplenomegaly, - - Mild distension unchanged, [place] to percussion. Mild tenderness to palpation. Faint yellow/blue ecchymosis noted to to abdomen around areas of incisions. Surgical wounds healing well, jaycee remain intact no evidence of infection- without erythema, drainage, warmth, or abnormal pain. Lymphatic: No Cervical Adenopathy Extremities: No Edema Skin: No Rash or Ulcers, No Nodules or Sclerosis Neurological: Alert and Oriented x 3, NL Sensation, NL Muscle Strength and Tone Nutrition: Taking PO's Result Diagrams: 01/15/20 07:49 01/15/20 07:49 Microbiology and Other Data: Microbiology 01/08/20 09:04 Aerobic Blood Culture - Final Blood Venous No Growth Day 5 Anaerobic Blood Culture - Final No Growth Day 5 01/07/20 05:39 Aerobic Blood Culture - Final Blood Venous No Growth Day 5 Anaerobic Blood Culture - Final No Growth Day 5 01/10/20 16:30 Urine Culture - Final Urine No Growth (<1,000 CFU/mL) 01/07/20 05:50 Aerobic Blood Culture - Final Blood Venous Staphylococcus Hominis Anaerobic Blood Culture - Final Staphylococcus Hominis Blood MRSA/MSSA (PCR) - Final Mrsa Negative S.aureus Negative 01/07/20 05:50 Blood MRSA/MSSA (PCR) - Final Blood Venous Mrsa Negative S.aureus Negative 01/07/20 11:33 Stool Occult Blood (ALEKSANDR) - Final Stool Diagnostic Imaging: CTAP: 1. small bowel obstruction with a transition annotated in the left mid abdomen 2. small volume ascites 3. osteopenia with compression fracture in L1 (acute appearing) 4. prostamegaly Assess/Plan/Problems-Billing Assessment: Mr. Tong is a 79 yo M with PMH of PAD, cutaneous T cell lymphoma, possible autonomic dysfunction with alternating hypertension and hypotension, osteoprosis , lumbar radiculopathy, polymyalgia rheumatica on years of steroid, secondary adrenal insufficiency, ?seizure on Keppra prophylactically; presented with acute onset of abdominal pain with N&V for 1 day, found to have SBO, cause unclear. - Patient Problems (1) Small bowel ischemia Current Visit: Yes Comment: - POD #6 small bowel resection and hernia repair - Management per Surgery - Diet changed to Soft foods per Surgery - Continue famotidine - Pain is well controlled with ketoralac (2) Small bowel obstruction Current Visit: Yes Status: Acute Code(s): K56.609 - UNSP INTESTNL OBST, UNSP TO PARTIAL VERSUS COMPLETE OBST Comment: - POD #6 Pt is progressing well. - Pt continues with loose BM's today also passing flatus. Denies severe abdominal pain. - Tolerating soft diet -Managed by surgery -COREY Sanchez placed request for PMRU on discharge for PT (3) Acute blood loss anemia Current Visit: Yes Comment: -Will recheck CBC in AM consider blood transfusions if Hgb progresses below 7 - Hgb 9.0, HCT 27 -HR 60's-80's BP normotensive (4) Compression fracture of L1 lumbar vertebra Current Visit: Yes Comment: -Pt without complaints of back pain at this time. - Acute back pain for 1.5 week with incidental finding in CT, consistent with acute compression fracture - Neurosurgery recommending TLSO brace -For concern of constipation cutting back on hydromorphone and replacing with tordal. pt is tolerating medication change well. - Need to discuss osteoprosis tx options outpatient (5) Hypertension Current Visit: Yes Comment: - Remains normotensive today with mild elevatioins will continue current regimen - Hypertension history remotely, recently alternating hypotension and hypertension ?autonomic dysfunction (was more hypotensive at home, therefore fludrocortisone and Na tablet was started) - Hemodynamically stable now, watch BP closely - Continue hydralazine PRN (6) Polymyalgia rheumatica Current Visit: No Comment: - Continue prednisone (7) Seizure disorder Current Visit: No Comment: - Continue Keppra - Tolerating PO Keppra (8) DNR (do not resuscitate) Current Visit: Yes Comment: (9) DVT prophylaxis Current Visit: Yes Comment: - Heparin SQ Status and Disposition: Inpatient. Anticipate d/c home vs [facility] when medically stable and cleared by Surgery.
[2020-01-15] MEDS: oxyCODONE/Acetamin 5/325 MG* TAB PO PRN (18:40)
[2020-01-15] MEDS: Gabapentin CAP(*) 400 MG PO SCH (21:20)
[2020-01-16] MEDS: Ketorolac INJ* 15 MG/ML 1 ML VIAL IV PUSH SCH ×2 (00:39→05:36)
[2020-01-16] MEDS: Heparin VIAL(*) 5000 UNITS/ML VIAL (FIVE THOUSAND) SUBCUT SCH (05:42)
--- NOTE | 2020-01-16 08:51 | PN ---
Progress Note - Progress Note Date of Service: 01/16/20 SOAP: Subjective: Pt seen and examined. abdo pain. no hiccoughs, unsure regarding flatus. incontinent to urine, stool Being evaluated for PMRU Objective: Temp Pulse Resp BP Pulse Ox 97 F 57 14 136/52 99 01/16/20 08:20 01/16/20 08:20 01/16/20 08:20 01/16/20 08:20 01/16/20 08:20 a and o x2, nad lungs clear abdo: soft/ ND/ NT staple line intact LLE: no edema no labs today path reviewed Assessment: POD 7 ex lap, improving ileus Plan: advance diet d//c abx transfer to RU
[2020-01-16 09:22] LABS: ABS Eosinophils 0.1 10^3/ul (0-0.6); ABS Monocytes 0.7 10^3/ul (0-0.8); ABS Neutrophils 5.5 10^3/ul (1.5-7.7); Eosinophil % 1.9 %; Hematocrit 29 % (42-52); Hemoglobin 9.6 g/dL (14.0-18.0); Mean Corpuscular HGB Conc 33 g/dL (31-36); Mean Corpuscular Hemoglobin 28 pg (27-31); Mean Corpuscular Volume 84 fL (80-94); Mean Platelet Volume 6.8 fL (7.4-10.4); Platelet Count 262 10^3/uL (150-450); Red Blood Count 3.45 10^6 /uL (4.18-5.48); Red Cell Distribution Width 16 % (10-15); White Blood Count 7.3 10^3/uL (3.5-10.8)
[2020-01-16 09:41] LABS: BUN/Creatinine Ratio 16.7 (8-20); Calcium 7.6 mg/dL (8.6-10.3); EGFR African American 156.9 (>60); EGFR Non-African American 129.6 (>60); Magnesium 1.8 mg/dL (1.9-2.7); Potassium 3.5 mmol/L (3.5-5.0)
[2020-01-16] MEDS: Clopidogrel TAB* 75 MG PO SCH (09:55)
[2020-01-16] MEDS: Atorvastatin* 40 MG TAB PO SCH (09:55)
[2020-01-16] MEDS: Finasteride TAB* 5 MG PO SCH (09:56)
[2020-01-16] MEDS: Potassium Chlor TAB* 10 MEQ TAB.ER PO SCH (09:56)
[2020-01-16] MEDS: Pantoprazole TAB * 40 MG TAB PO SCH (09:56)
[2020-01-16] MEDS: oxyCODONE/Acetamin 5/325 MG* TAB PO PRN (09:56)
[2020-01-16] MEDS: levETIRAcetam TAB* 500 MG PO SCH (09:57)
[2020-01-16] MEDS: Magnesium Oxide TAB* 400 MG PO SCH (09:58)
[2020-01-16] MEDS: Gabapentin CAP(*) 300 MG PO SCH (09:59)
[2020-01-16] MEDS: Famotidine IV* 10 MG/ML 2 ML (20 mg) IV SLOW PU SCH (10:02)
[2020-01-16] MEDS: Fludrocortisone Acetate TAB* 0.1 MG PO SCH (10:46)
[2020-01-16 11:15] VITALS: BP 137/70
--- NOTE | 2020-01-17 03:42 | DS ---
DISCHARGE SUMMARY: DATE OF ADMISSION: 01/07/20 DATE OF DISCHARGE: 01/16/20 ATTENDING PHYSICIAN: Dr. Betancourt* (dictated by Ady Sanchez NP). PRIMARY CARE PHYSICIAN: Dr. May Castillo. CONSULTING PHYSICIAN: Dr. Ray with General Surgery and Dr. Villela with Neurology. PRIMARY DIAGNOSES: 1. Small bowel obstruction. 2. Status post diagnostic laparoscopy, exploratory laparotomy, small bowel resection with primary anastomosis, and umbilical hernia repair with postoperative diagnoses of ischemic small bowel and umbilical hernia. SECONDARY DIAGNOSES: 1. Anemia. 2. Acute L1 compression fracture. 3. Hypertension with a question of autonomic dysfunction. 4. Polymyalgia rheumatica. 5. Seizure disorder. 6. Low-grade T-cell lymphoma. PROCEDURES: Diagnostic laparoscopy, exploratory laparotomy, small bowel resection with primary anastomosis, and umbilical hernia repair on 01/09/[address] Ray. HISTORY OF PRESENT ILLNESS AND HOSPITAL COURSE: Mr. 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 On 01/07/20, the patient presented to the emergency department with abdominal pain, nausea, vomiting, and diarrhea. On her CT of the abdomen and pelvis, it was noted that findings were consistent with small bowel obstruction. Imaging also noted an acute appearing L1 compression fracture, also noted extensive atherosclerotic disease, and prostatomegaly. While the patient was in the emergency department, he did have an NG tube placed. He was also noted with hypertension with BP up to 200/110. Per provider report, stated that his BP is very labile and mostly low to even 40 back home and that he has had a lot of fainting spells in the past for which he was at some point started on seizure prophylaxis with Keppra and fludrocortisone. The patient was also seen by Dr. Ray on 01/07/20. Quoting his note from that day in the plan was to "plan is for serial abdominal exams and low threshold to take the patient to the operating room for a diagnostic laparoscopy." In addition, the plan was to give the patient IV fluids, get his blood pressure control, keep him n.p.o., and continue the NG tube. Abdominal x- ray on 01/08/20, impression states obstructive bowel gas pattern. Also on 01/07, Dr. Sanchez notes that blood cultures showing positive for gram-positive cocci, negative MRSA, negative MSSA. In light of his high risk for infection with chronic steroid use, he was treated with IV ceftriaxone at that time. Later on 01/08/20, there was a clinical assessment team called to the patient's room around 1830 for acute unresponsiveness. The patient was found to be hypoxic and hypotensive with fixed gaze and a possible slight small horizontal nystagmus. Narcan was given x2 with good effect and signs of acute withdrawal noted per provider note. New T-wave inversions were noted on lateral leads consistent with repeat EKG. Oxygen was applied 15 L via facemask. The patient then began complaining of generalized pain. Pallor, erection, diarrhea, tremors all noted during provider assessment, signs that the provider felt were consistent with acute opioid withdrawal. The provider at that time writes that he did discuss this episode with the patient's , who stated that the patient has had numerous episodes like this and had been previously attributed to seizures. His Keppra dosing was increased and his Dilaudid IV dosing was reintroduced at a lower dose. The patient did have a brain CT that night of 06/20, impression states no acute intracranial pathology. It was noted on 01/[address] Sanchez that the patient appeared to be in a very significant amount of pain. She notes that the patient was screaming holding both his legs up and shouting in pain. He did not seem confused throughout that time. He did pull out his NG tube. The patient later that day was taken to the operating room for which he had a diagnostic laparoscopy, exploratory laparotomy, small bowel resection with primary anastomosis, and umbilical hernia repair with Dr. Ray. Postop diagnoses were ischemic small bowel and umbilical hernia. The patient went to ICU after surgery for additional monitoring and went back to short stay on 01/10/20. Per notes, it appears the patient was very weak after surgery and at one point was requiring Yumi lift to get out of the bed. In regards to the prior report of seizure disorder, Dr. Villela was consulted, and on 01/12/20, Dr. Villela saw Mr. Tong for what he says was an episode of confusion. Per Dr. Villela's report, he notes that the patient has a history of ill-defined epilepsy with an episode of increased confusion during the hospitalization that was thought to be related to narcotic therapy. At that time, the patient had not been taking in much oral intake and he was given IV Keppra per Dr. Villela and was later on per recommendations put back on p.o. Keppra at the same dose. Dr. Villela thought that the patient was exhibiting some signs of potentially an underlying neurodegenerative disorder. Thought the patient could follow up with Neurology at some point after he is off of the narcotic therapy as an outpatient. The patient continued to have slow recovery over the next few days. He was seen Dr. Ray this morning, who noted that the patient was incontinent of urine, stool. Also, the patient was last tolerating a soft diet per his orders. Per General Surgery, the patient was okay to be discharged to [facility]. Vital signs have otherwise remained stable, mild elevations in blood pressure at times over the last few days. Earlier on in his stay, he was having significant elevations in blood pressure, however, those higher elevations have not occurred since approximately 01/11/20. The patient has had a drop in H and H, however, this is not far from his baseline. We would recommend followup CBC as well as followup BMP to assess his electrolyte status. At this point, the patient was acceptable for discharge to [facility]. Upon interview and assessment, the patient denies headache, chest pain, shortness of breath, nausea, vomiting. States that he has been incontinent of stools recently. He states that he has been urinating okay. He complains of some tenderness around his abdominal incision area. Denies any unusual numbness or tingling. STUDIES: Chest x-ray from 01/07/20, impression states elevated lung volumes, suggest potential obstructive lung disease. No acute pulmonary or cardiac process evident. Nasogastric tube passes to the stomach with the tip at the gastric cardia, consider advancing tube. Abdomen and pelvis CT from 01/07/20, impression states small bowel obstruction with a transition point indicated in the left mid abdomen. Small volume ascites. Osteopenia with compression fractures as above, L1 with an acute appearance at least new from June 2019. Extensive atherosclerotic disease. Prostatomegaly. EKG from 01/08/20, sinus rhythm with a rate of 78 beats per minute. Right bundle- branch block appears evident. This EKG was noted with new appearing diffuse T wave inversions. Repeat EKG later that day stated no significant changes since the previous record of 12-lead on 01/08/20 at 1853. EKG from 07/20, again sinus rhythm, heart rate 90 beats per minute, right bundle-branch block evident, again read no significant changes since the previous record of 12 -lead of 01/08/20 at 1917. Abdominal x-rays from 01/08/20, impression states obstructive bowel gas pattern. Transthoracic echocardiogram from 01/08/20, summary states left ventricular cavity size is normal. Wall thickness is mildly to moderately increased. Estimated ejection fraction is 55% to 60%. Regional wall abnormality, akinesis of the apical anterior myocardium, hypokinesis of the apical inferior, apical septal, and apical myocardium. Right ventricle cavity size is normal. Valve function is normal. Left atrium, the atrium is mildly dilated. Pulmonic valve not visualized. There is otherwise no functionally significant dysfunction of the mitral, aortic, or tricuspid valve and no obvious vegetations noted. Compared to the prior study from August 2019, there was reported to be moderate mitral regurgitation previously and no segmental wall motion abnormalities were noted previously. Chest x-ray from 01/08/20, impression states no focal airspace opacification. The subdiaphragmatic enteric tube should be advanced 5 cm. Dilated gaseous loops of of bowel. Abdominal x-ray, again impression states obstructive bowel gas pattern. Brain CT from 01/08/20, impression states there is stable age-related diffuse cerebral volume loss and chronic microvascular ischemic disease. No acute intracranial pathology. PERTINENT LABORATORY DATA: Labs from 01/07/20, WBC 13.1, hemoglobin 13.6, hematocrit 40, RBC 4.88, MCV 82, MCH 28, MCHC 34, RDW 16, platelet count 352, MPV 6.6, absolute neutrophils 10.1, absolute monocytes 1.5. INR 0.96, aPTT 25.9. Sodium 132, potassium 3.1, chloride 99, carbon dioxide 25, anion gap 8, BUN 16, creatinine 0.69, estimated GFR 110.3, BUN/creatinine ratio 23.2, glucose 120, lactic acid 1.8, calcium 9.1. Total bilirubin 0.8, AST 25, ALT 17 , alk phosphatase 71. Ammonia 34. CRP 9.19. Total protein 7.5, albumin 3.6, globulin 3.9, albumin/globulin ratio 0.9, amylase 55, lipase 15. With regard to CBC, the patient's white count started to trend upward later in the day on , peaked on 01/09/20, and then started trending back down after 01/09/20, remained within normal limits from 01/12/20 on. The patient noted with mild anemia on arrival, within normal limits later in the day. However, hemoglobin 13.2 on 01/09/20, 10.8 on 01/10/20, slowly trended upward and then 11.1 on 01/12 and then down to 9.0 on 01/15/20 and 9.6 this morning. The patient had ABGs on 01/08/20, pH 7.40, PCO2 of 20, PO2 of 216, HCO3 of 17.1, O2 saturation 100, base excess -10. On that day of 01/08/20, the patient had a sodium of 134 , potassium 4.4, chloride 106, carbon dioxide 14, anion gap 14, BUN 26, creatinine 1.72, glucose 174, estimated GFR 38.5, BUN/creatinine ratio 15.1, calcium 8.5. He was also noted with a troponin of 0.10, lactic acid of 5.6. Serial troponins showed 0.14, 0.19 and 0.17. Serial lactic showed 4.2, 2.2, and then 1.9. After recovery from this event, the patient's chemistry remained essentially stable with some mild elevation and deficiencies. He did have a potassium at one point was 3.0 on 01/12/20 which musa and then 3.3 on 01/15/20 and again 3.5 on 01/16/20. Magnesium was also noted low at times. REVIEW OF SYSTEMS: A 10-point review of systems was completed with this patient. Please see HPI for all pertinent positives and negatives. PHYSICAL EXAM: Constitutional: The patient is sitting up in chair, in no acute distress. Last vital signs done, temp 98.4, heart rate 59, respiratory rate 14, O2 sat 100% on room air, BP 137/70. HEENT: PERRL. No scleral icterus noted. Cardiovascular: Heart rate regular. S1, S2 present. No murmurs , rubs, or gallops noted. Extremities: Left pedal pulses present 2+, right popliteal pulse present 1+, no edema. Respiratory: Lung sounds clear throughout bilaterally. Normal respiratory effort. GI: Normoactive bowel sounds throughout. Abdomen with very mild distension, soft, tender to palpation around incision area. Musculoskeletal: Strength 3/10 to all extremities. Skin: Ryley intact to small midline incision as well lap site to mid right abdomen. No erythema, swelling, warmth, drainage noted. All incision edges appeared to approximated. Neuro: Alert and oriented x3. DISCHARGE PLAN: 1. The patient can continue with heart-healthy diet. 2. No equipment necessary for discharge. 3. Increase activity level per Physical Therapy from [facility]RU. 4. Should return to the emergency department with sharp increases in abdominal pain, nausea, vomiting that are persistent, chest pain, or unusual shortness of breath. MEDICATIONS AT DISCHARGE: 1. Atorvastatin 40 mg p.o. daily. 2. Clopidogrel 75 mg p.o. daily. 3. Finasteride 5 mg p.o. daily. 4. Fludrocortisone 0.1 mg p.o. daily. 5. Gabapentin 600 mg p.o. at noon. 6. Gabapentin 1200 mg p.o. q.p.m. 7. Levetiracetam XR 750 mg p.o. b.i.d. 8. Magnesium oxide 400 mg p.o. b.i.d. 9. Multivitamin 1 cap p.o. daily. 10. Omeprazole 20 mg p.o. daily. 11. Oxycodone 5 mg p.o. q. 4 hours p.r.n. 12. Potassium chloride tabs 10 mEq p.o. b.i.d. 13. Prednisone 5 mg p.o. daily. 14. Sildenafil 5 mg p.o. daily. 15. Sodium chloride 1 g p.o. daily. PROBLEM LIST: 1. Small bowel obstruction, status post diagnostic laparoscopy, exploratory laparotomy, small bowel resection with primary anastomosis with an umbilical hernia repair with postop diagnoses of ischemic small bowel and umbilical hernia. The patient should continue to advance as tolerated from soft diet from which he had this morning. Should follow up at some point with Dr. Ray' s office. The patient should be seen by Dr. Ray's office within the next 1 to 2 weeks. If he is still in PMRU at that time, he would be advised to call the Surgical Office or one of the providers and get followup suggestions for outpatient followup as necessary versus inpatient followup. Also at some point , his ryley will need to be removed, this may be determined by rehab physician. 2. Anemia. The patient does have a history of anemia of chronic disease. He did exhibit anemia while he was in the hospital during this stay. It is, however, lower than what appears to his baseline. I would recommend followup CBC within 1 week and followup with PCP within 1 to 2 weeks. Again, this patient is going to rehab unit, labs can be drawn there and rehab physician can suggest appropriate outpatient followup. 3. Peripheral vascular disease. The patient is status post right below knee amputation from 2019. He is on Plavix therapy and he can continue this medication at discharge. Followup with PCP regarding this condition. 4. Acute L1 compression fracture. Per Neurosurgery, TLSO brace indicated. The patient can follow up with Dr. Shepherd from Sports Medicine about this condition in 1 to 2 weeks. Continue with TLSO brace. 5. Hypertension with question of autonomic dysfunction and interchangeably hypertension and hypotension, which the states the patient often has labile BP. The patient is not on antihypertensives at this time. I would not advise putting him on antihypertensives at this time. His blood pressure had normalized later on in his stay. He is on chronic prednisone, also Florinef and sildenafil. He can continue to follow up with his PCP about this condition. 6. PMR, on chronic steroids with secondary adrenal insufficiency. Again, the patient can continue with his usual steroid regimen. Continue with Florinef and be sure to follow up with his PCP about this condition. 7. Seizure disorder. Plan is for now to keep the patient on usual Keppra regimen 750 mg twice a day. After the patient is stronger and healthier, rehab physician can decide when it would be appropriate for the patient to follow up with Neurology about this condition. Dr. Villela did note that the patient was showing other subtle signs indicative of an underlying neurodegenerative disorder. He can also continue his gabapentin. 8. Low-grade T-cell lymphoma. Considering that the cause of the patient's SBO was not an obvious one, it is very reasonable to have the patient follow up with his oncologist about this condition. It will be reasonable to follow up within the next 1 to 2 weeks. Again, his length of stay on PMRU is unknown at this time. 9. Prostatomegaly. The patient can continue to follow up with his PCP about this. 10. Cardiac wall motion abnormality. The patient could be referred to Cardiology as an outpatient for this condition. CONDITION AT DISCHARGE: Stable and improving. DISPOSITION: PMRU. TIME SPENT: Approximately 1 hour and 20 minutes was spent on this discharge. This case was reviewed with my attending physician, Dr. Betancourt, and she agrees with this plan. ADY SANCHEZ NP [id number]/CPS #: [id number] DANA
== END 2020-01-16 13:40 | DRG 330 ==
LOC: ED 04:57 → SSU 09:34 → MEDTELE 01-08 23:55 → ICU 01-09 14:02 → SSU 01-10 10:35
PROVIDERS: ADMIT Internal Medicine; ATTEND Internal Medicine
PROC: 0DB80ZZ Excision of Small Intestine, Open Approach (ICD-10-PCS; principal; 2020-01-07)
PROC: 0DJD4ZZ Inspection of Lower Intestinal Tract, Percutaneous Endoscopic Approach (ICD-10-PCS; 2020-01-07)
PROC: 0WQF0ZZ Repair Abdominal Wall, Open Approach (ICD-10-PCS; 2020-01-07)
DX: K42.0 Umbilical hernia with obstruction, without gangrene (principal); E27.40 Unspecified adrenocortical insufficiency; K55.9 Vascular disorder of intestine, unspecified; M48.56XA Collapsed vertebra, not elsewhere classified, lumbar region, initial encounter for fracture; C85.80 Other specified types of non-Hodgkin lymphoma, unspecified site; K56.7 Ileus, unspecified; D62 Acute posthemorrhagic anemia; R78.81 Bacteremia; N17.9 Acute kidney failure, unspecified; E27.49 Other adrenocortical insufficiency; I73.9 Peripheral vascular disease, unspecified; Z89.611 Acquired absence of right leg above knee; M35.3 Polymyalgia rheumatica; M54.16 Radiculopathy, lumbar region; I10 Essential (primary) hypertension; G40.909 Epilepsy, unspecified, not intractable, without status epilepticus; D63.8 Anemia in other chronic diseases classified elsewhere; N40.0 Benign prostatic hyperplasia without lower urinary tract symptoms; M81.0 Age-related osteoporosis without current pathological fracture; M06.9 Rheumatoid arthritis, unspecified; Z66 Do not resuscitate; D72.829 Elevated white blood cell count, unspecified; Z79.899 Other long term (current) drug therapy; Z79.02 Long term (current) use of antithrombotics/antiplatelets; Z87.891 Personal history of nicotine dependence; Z79.52 Long term (current) use of systemic steroids; Z88.6 Allergy status to analgesic agent; Z88.8 Allergy status to other drugs, medicaments and biological substances; Z53.31 Laparoscopic surgical procedure converted to open procedure; Z88.1 Allergy status to other antibiotic agents; Z88.2 Allergy status to sulfonamides; Z88.5 Allergy status to narcotic agent
CPT/HCPCS: 36415; 36600; 70450; 71045; 74018; 74019; 74177; 80048; 80053; 80076; 81003; 81015; 82140; 82150; 82272; 82803; 83605; 83690; 83735; 84100; 84484; 85025; 85027; 85610; 85730; 86140; 87040; 87077; 87086; 87150; 87205; 88302; 88307; 93005; 93306; 99284; A9270-GY; C1776; J0360; J0690; J0696; J1100; J1170; J1335; J1644; J1650; J1720; J1885; J1953; J2250; J2310; J2405; J3010; J3475; J3480; J3490; J7512; Q9967

== ENCOUNTER 2020-06-25 21:13 | Inpatient (IN) ==
[2020-06-26 00:24] LABS: Hematocrit 35 % (42-52); Hemoglobin 11.4 g/dL (14.0-18.0); Mean Corpuscular HGB Conc 33 g/dL (31-36); Mean Corpuscular Hemoglobin 27 pg (27-31); Mean Corpuscular Volume 81 fL (80-94); Mean Platelet Volume 6.9 fL (7.4-10.4); Platelet Count 192 10^3/uL (150-450); Red Blood Count 4.28 10^6 /uL (4.18-5.48); Red Cell Distribution Width 16 % (10-15); White Blood Count 4.7 10^3/uL (3.5-10.8)
[2020-06-26 00:41] LABS: Albumin 3.4 g/dL (3.2-5.2); Albumin/Globulin Ratio 1.2 (1-3); Calcium 8.3 mg/dL (8.6-10.3); EGFR African American 99.5 (>60); EGFR Non-African American 82.2 (>60); Globulin 2.9 g/dL (2-4); Potassium 3.9 mmol/L (3.5-5.0); Total Bilirubin 1.1 mg/dL (0.2-1.0); Total Protein 6.3 g/dL (6.4-8.9)
[2020-06-26 01:31] LABS: ABS Lymphocytes 1.2 10^3/ul (1.0-4.8); ABS Monocytes 1.4 10^3/ul (0-0.8); Eosinophil % 0.6 %; Lymphocyte % 25.9 %; Nucleated Red Blood Cells % 0.1
[2020-06-26] MEDS ORDERED: Ondansetron 4 mg VIAL 2 MG/ML 2 ml VIAL IV PRN (02:25)
[2020-06-26 02:35] LABS: Urine Appearance Clear; Urine Bilirubin Negative (Negative); Urine Blood Negative (Negative); Urine Color Yellow; Urine Glucose Negative (Negative); Urine Ketones Trace (Negative); Urine Nitrite Negative (Negative); Urine Protein 1+(30 mg/dL) (Negative); Urine Specific Gravity 1.023 (1.010-1.030); Urine Urobilinogen Negative (Negative)
[2020-06-26 02:42] LABS: Urine Bacteria Absent (Absent); Urine Red Blood Cell 2+(6-10/hpf) (Absent); Urine White Blood Cell Trace(0-5/hpf) (Absent)
[2020-06-26] MEDS: Enoxaparin 40 MG/0.4 ML SYR SUBCUT SCH (04:14)
[2020-06-26] MEDS: Potassium Chlor 10 meq TAB PO SCH ×2 (10:02→21:00)
[2020-06-26] MEDS ORDERED: Magnesium Hydroxide LIQ 30 ML UDC PO PRN (12:36)
[2020-06-26] MEDS: Senna TAB 8.6 mg TAB PO SCH (21:00)
[2020-06-27] MEDS: Enoxaparin 40 MG/0.4 ML SYR SUBCUT SCH (04:49)
[2020-06-27] MEDS: Potassium Chlor 10 meq TAB PO SCH ×2 (07:55→21:28)
[2020-06-27] MEDS: Lidocaine PATCH 5% PATCH TRANSDERM SCH (09:29)
[2020-06-27] MEDS: CMCS:Calcitonin NASAL(NF) 200 UNITS/SPRAY NASAL.SPR ALT NARE SCH (12:16)
[2020-06-27] MEDS: Senna TAB 8.6 mg TAB PO SCH (21:30)
[2020-06-27] MEDS: CMCS:Sildenafil (PULMONARY)20mg(NF) PO SCH (21:34)
[2020-06-27] MEDS: Lidocaine Patch REMOVE PATCH PATCH OFF SCH (21:51)
[2020-06-28] MEDS: Enoxaparin 40 MG/0.4 ML SYR SUBCUT SCH (06:05)
[2020-06-28 06:56] LABS: Calcium 7.9 mg/dL (8.6-10.3); Potassium 4.2 mmol/L (3.5-5.0)
[2020-06-28 07:01] LABS: BUN/Creatinine Ratio 16.9 (8-20); EGFR Non-African American 118.2 (>60)
[2020-06-28] MEDS: Potassium Chlor 10 meq TAB PO SCH ×2 (08:59→20:59)
[2020-06-28] MEDS: Lidocaine PATCH 5% PATCH TRANSDERM SCH (09:00)
[2020-06-28] MEDS: oxyCODONE SR 15 mg TAB PO SCH ×2 (12:26→20:58)
[2020-06-28] MEDS: CMCS:Calcitonin NASAL(NF) 200 UNITS/SPRAY NASAL.SPR ALT NARE SCH (12:27)
[2020-06-28] MEDS ORDERED: ZOLEDRONIC ACID 4 MG/5 ML IVPB ONE (14:29)
[2020-06-28] MEDS ORDERED: Zoledronic/Mannitol 5 MG/100ML 5 MG/100 ML BTL IVPB ONE (15:00)
[2020-06-28] MEDS: Lidocaine Patch REMOVE PATCH PATCH OFF SCH ×2 (20:59→23:06)
[2020-06-28] MEDS: CMCS:Sildenafil (PULMONARY)20mg(NF) PO SCH (21:00)
[2020-06-29] MEDS: Enoxaparin 40 MG/0.4 ML SYR SUBCUT SCH (05:13)
[2020-06-29] MEDS: Potassium Chlor 10 meq TAB PO SCH ×2 (08:29→21:31)
[2020-06-29] MEDS: oxyCODONE SR 15 mg TAB PO SCH ×2 (08:29→21:33)
[2020-06-29] MEDS: CMCS:Calcitonin NASAL(NF) 200 UNITS/SPRAY NASAL.SPR ALT NARE SCH (08:30)
[2020-06-29] MEDS: Lidocaine PATCH 5% PATCH TRANSDERM SCH (08:39)
[2020-06-29] MEDS: CMCS:Sildenafil (PULMONARY)20mg(NF) PO SCH (21:32)
[2020-06-29] MEDS: Lidocaine Patch REMOVE PATCH PATCH OFF SCH (21:33)
[2020-06-30] MEDS: Enoxaparin 40 MG/0.4 ML SYR SUBCUT SCH (06:03)
[2020-06-30] MEDS: CMCS:Calcitonin NASAL(NF) 200 UNITS/SPRAY NASAL.SPR ALT NARE SCH (08:28)
[2020-06-30] MEDS: oxyCODONE SR 15 mg TAB PO SCH (08:29)
[2020-06-30] MEDS: Potassium Chlor 10 meq TAB PO SCH (08:29)
[2020-06-30] MEDS: Lidocaine PATCH 5% PATCH TRANSDERM SCH (08:29)
[2020-06-30 09:44] VITALS: BP 141/56
== END 2020-06-30 10:40 | DRG 543 ==
LOC: ED 21:13 → MED 21:13
PROVIDERS: ADMIT Hospitalist; ATTEND Internal Medicine

== ENCOUNTER 2020-11-07 21:21 | Inpatient (IN) ==
[2020-11-07] MEDS ORDERED: Lactated Ringers 1000 ml BAG IV.FLUID IV ONE (21:40)
[2020-11-07 22:07] LABS: Hematocrit 35 % (42-52); Hemoglobin 11.7 g/dL (14.0-18.0); Mean Corpuscular HGB Conc 34 g/dL (31-36); Mean Corpuscular Hemoglobin 28 pg (27-31); Mean Corpuscular Volume 82 fL (80-94); Mean Platelet Volume 7.3 fL (7.4-10.4); Platelet Count 161 10^3/uL (150-450); Red Blood Count 4.25 10^6 /uL (4.18-5.48); Red Cell Distribution Width 18 % (10-15); White Blood Count 4.2 10^3/uL (3.5-10.8)
[2020-11-07 22:17] LABS: Activated Partial Thrombo Time 24.7 seconds (26.0-38.0); INR 1.19 (0.82-1.09)
[2020-11-07 22:28] LABS: ALT 11 U/L (7-52); AST 27 U/L (13-39); Albumin 3.4 g/dL (3.2-5.2); Albumin/Globulin Ratio 1.5 (1-3); Alkaline Phosphatase 87 U/L (34-104); Anion Gap 6 mmol/L (2-11); BUN/Creatinine Ratio 16.7 (8-20); Blood Urea Nitrogen 13 mg/dL (6-24); C Reactive Protein 16.85 mg/L (<8.01); CO2 Carbon Dioxide 23 mmol/L (22-32); Calcium 8.5 mg/dL (8.6-10.3); Chloride 103 mmol/L (101-111); EGFR African American 115.6 (>60); EGFR Non-African American 95.5 (>60); Globulin 2.3 g/dL (2-4); Glucose 115 mg/dL (70-100); Potassium 3.3 mmol/L (3.5-5.0); Sodium 132 mmol/L (135-145); Total Protein 5.7 g/dL (6.4-8.9)
[2020-11-07 22:32] LABS: Troponin I 0.05 ng/mL (<0.03)
[2020-11-07 22:35] LABS: ABS Lymphocytes 1.2 10^3/ul (1.0-4.8); ABS Monocytes 1.2 10^3/ul (0-0.8); ABS Neutrophils 1.8 10^3/ul (1.5-7.7); Burr Cells 1+; Eosinophil % 0.2 %; Nucleated Red Blood Cells % 0.1
[2020-11-07] MEDS ORDERED: cefTRIAXone 1 gm/50 mL NS BAG 1 GM/50 ML BAG IV ONE (22:41)
[2020-11-07 23:46] LABS: Urine Appearance Cloudy; Urine Bilirubin Negative (Negative); Urine Blood 1+ (Negative); Urine Color Yellow; Urine Glucose Negative (Negative); Urine Ketones Negative (Negative); Urine Nitrite Negative (Negative); Urine Protein Negative (Negative); Urine Specific Gravity 1.014 (1.010-1.030); Urine Urobilinogen Negative (Negative)
[2020-11-07 23:51] LABS: Urine Bacteria 1+ (Absent); Urine Red Blood Cell Trace(0-2/hpf) (Absent); Urine Squamous Epithelial Cell Present (Absent); Urine White Blood Cell 1+(6-10/hpf) (Absent)
[2020-11-07 23:59] LABS: Influenza A Molecular Negative (Negative); Influenza B Molecular Negative (Negative)
[2020-11-08] MEDS ORDERED: Potassium Chlor 20 meq TAB.ER PO ONE (00:40)
[2020-11-08 01:16] LABS: LDH 403 U/L (140-271)
[2020-11-08] MEDS ORDERED: Magnesium Hydroxide LIQ 30 ML UDC PO PRN (01:28)
[2020-11-08 02:08] LABS: Erythrocyte Sed Rate 5 mm/Hr (0-19)
[2020-11-08] MEDS ORDERED: Iohexol 300 (CONTRAST) 10 ML SDV IV ONE (02:21)
[2020-11-08 02:49] LABS: TSH Ultra Thyroid Stim Horm 0.77 mcIU/mL (0.34-5.60)
[2020-11-08] MEDS ORDERED: Azithromycin 500 mg/250 ml NS 500 MG/250 ML BAG IVPB ONE (04:30)
[2020-11-08 04:31] LABS: Troponin I 0.04 ng/mL (<0.03)
[2020-11-08 07:04] LABS: Troponin I 0.04 ng/mL (<0.03)
[2020-11-08] MEDS ORDERED: OXYCODONE 15 MG PO SCH (09:00)
[2020-11-08] MEDS ORDERED: Calcitonin NASAL(NF) 200 UNITS/SPRAY NASAL.SPR ALT NARE SCH (09:00)
[2020-11-08] MEDS: Enoxaparin 40 MG/0.4 ML SYR SUBCUT SCH (09:26)
[2020-11-08] MEDS: DOXYcycline 100 MG in NS 0.9% 250 ml 250 ML IVPB SCH ×2 (09:26→20:13)
[2020-11-08] MEDS: Lidocaine PATCH 5% PATCH TRANSDERM SCH (09:27)
[2020-11-08] MEDS ORDERED: Latanoprost 0.005% 2.5 ml BTL BOTH EYES SCH (18:00)
[2020-11-08] MEDS ORDERED: Lidocaine Patch REMOVE PATCH PATCH OFF SCH (21:00)
[2020-11-08] MEDS ORDERED: cefTRIAXone 1 gm/50 mL NS BAG 1 GM/50 ML BAG IVPB SCH (23:00)
[2020-11-09 05:51] LABS: Hematocrit 28 % (42-52); Hemoglobin 9.5 g/dL (14.0-18.0); Mean Corpuscular HGB Conc 33 g/dL (31-36); Mean Corpuscular Hemoglobin 27 pg (27-31); Mean Corpuscular Volume 82 fL (80-94); Mean Platelet Volume 7.7 fL (7.4-10.4); Platelet Count 135 10^3/uL (150-450); Red Blood Count 3.45 10^6 /uL (4.18-5.48); Red Cell Distribution Width 18 % (10-15); White Blood Count 3.4 10^3/uL (3.5-10.8)
[2020-11-09 06:13] LABS: ALT 9 U/L (7-52); AST 22 U/L (13-39); Albumin 2.8 g/dL (3.2-5.2); Albumin/Globulin Ratio 1.4 (1-3); Alkaline Phosphatase 65 U/L (34-104); Anion Gap 3 mmol/L (2-11); BUN/Creatinine Ratio 16.2 (8-20); Blood Urea Nitrogen 12 mg/dL (6-24); CO2 Carbon Dioxide 26 mmol/L (22-32); Chloride 106 mmol/L (101-111); EGFR African American 122.8 (>60); EGFR Non-African American 101.5 (>60); Glucose 84 mg/dL (70-100); Potassium 3.7 mmol/L (3.5-5.0); Sodium 135 mmol/L (135-145); Total Protein 4.8 g/dL (6.4-8.9)
[2020-11-09] MEDS: Lidocaine PATCH 5% PATCH TRANSDERM SCH (08:16)
[2020-11-09] MEDS: Enoxaparin 40 MG/0.4 ML SYR SUBCUT SCH (08:17)
[2020-11-09] MEDS: DOXYcycline 100 MG in NS 0.9% 250 ml 250 ML IVPB SCH (08:18)
[2020-11-09 12:03] VITALS: BP 161/70
[2020-11-09 14:07] LABS: Acanthocytes 1+
[2020-11-10 11:06] LABS: Magnesium 1.7 mg/dL (1.9-2.7)
[2020-11-10 13:52] LABS: % Iron Saturation 13 % (15-55); Iron 31 ug/dL (50-212); Total Iron Binding Capacity 235 mcg/dL (250-450); Transferrin 168 mg/dL (203-362); Unsaturated Iron Binding < 220 ug/dL
[2020-11-10 14:12] LABS: Ferritin 78.1 ng/mL (24-336)
[2020-11-10 14:19] LABS: Vitamin D Total 25(OH) 22.7 ng/mL (20-50)
== END 2020-11-09 15:45 | disposition home or self-care (01) | DRG 194 ==
LOC: MED 21:21 → ED 21:21 → MED 11-08 04:26
PROVIDERS: ADMIT Internal Medicine; ATTEND Internal Medicine

== ENCOUNTER 2020-12-05 09:01 | Inpatient (IN) ==
[2020-12-05 13:36] LABS: ABS Lymphocytes 1.1 10^3/ul (1.0-4.8); ABS Monocytes 1.5 10^3/ul (0-0.8); ABS Neutrophils 2.6 10^3/ul (1.5-7.7); Eosinophil % 0.1 %; Hematocrit 38 % (42-52); Hemoglobin 12.5 g/dL (14.0-18.0); Lymphocyte % 21.3 %; Mean Corpuscular HGB Conc 33 g/dL (31-36); Mean Corpuscular Hemoglobin 28 pg (27-31); Mean Corpuscular Volume 85 fL (80-94); Mean Platelet Volume 7.2 fL (7.4-10.4); Platelet Count 165 10^3/uL (150-450); Red Blood Count 4.42 10^6 /uL (4.18-5.48); Red Cell Distribution Width 17 % (10-15); White Blood Count 5.2 10^3/uL (3.5-10.8)
[2020-12-05 14:13] LABS: Albumin 3.6 g/dL (3.2-5.2); Albumin/Globulin Ratio 1.3 (1-3); BUN/Creatinine Ratio 16.1 (8-20); Calcium 8.5 mg/dL (8.6-10.3); EGFR African American 101.9 (>60); EGFR Non-African American 84.2 (>60); Globulin 2.8 g/dL (2-4); Potassium 3.9 mmol/L (3.5-5.0); Total Bilirubin 2.8 mg/dL (0.2-1.0); Total Protein 6.4 g/dL (6.4-8.9)
[2020-12-05 14:50] LABS: Urine Appearance Clear; Urine Bilirubin Negative (Negative); Urine Blood Negative (Negative); Urine Color Amber; Urine Glucose Negative (Negative); Urine Ketones Trace (Negative); Urine Nitrite Negative (Negative); Urine Protein Negative (Negative); Urine Specific Gravity 1.021 (1.010-1.030); Urine Urobilinogen Negative (Negative)
[2020-12-05 15:30] LABS: PSA Screening Total 0.782 ng/mL (0-4.000)
[2020-12-05] MEDS ORDERED: Ondansetron 4 mg VIAL 2 MG/ML 2 ml VIAL IV PRN (15:56)
[2020-12-05] MEDS ORDERED: HYDROmorphone 1 MG/1 ML SYRINGE IV SLOW PU PRN (17:31)
[2020-12-05] MEDS: Enoxaparin 40 MG/0.4 ML SYR SUBCUT SCH (17:39)
[2020-12-05] MEDS: Latanoprost 0.005% 2.5 ml BTL BOTH EYES SCH (18:13)
[2020-12-05] MEDS: Colesevelam 625 mg TAB (NF) PO SCH (18:14)
[2020-12-05] MEDS: CMCS: Sildenafil (PULMONARY)20mg(NF) PO SCH (20:02)
[2020-12-05] MEDS: Lidocaine Patch REMOVE PATCH PATCH OFF SCH (22:49)
[2020-12-06 06:09] LABS: Hematocrit 32 % (42-52); Hemoglobin 11.2 g/dL (14.0-18.0); Mean Corpuscular HGB Conc 35 g/dL (31-36); Mean Corpuscular Hemoglobin 29 pg (27-31); Mean Corpuscular Volume 84 fL (80-94); Mean Platelet Volume 7.6 fL (7.4-10.4); Platelet Count 147 10^3/uL (150-450); Red Blood Count 3.82 10^6 /uL (4.18-5.48); Red Cell Distribution Width 17 % (10-15); White Blood Count 5.6 10^3/uL (3.5-10.8)
[2020-12-06 06:26] LABS: BUN/Creatinine Ratio 22.2 (8-20); Calcium 8.1 mg/dL (8.6-10.3); EGFR African American 110.7 (>60); EGFR Non-African American 91.5 (>60); Potassium 3.8 mmol/L (3.5-5.0)
[2020-12-06 06:44] LABS: Burr Cells 1+; Polychromasia 1+
[2020-12-06 06:47] LABS: ABS Lymphocytes 1.6 10^3/ul (1.0-4.8); ABS Monocytes 1.5 10^3/ul (0-0.8); ABS Neutrophils 2.2 10^3/ul (1.5-7.7); Eosinophil % 0.7 %; Nucleated Red Blood Cells % 0.1
[2020-12-06] MEDS: Colesevelam 625 mg TAB (NF) PO SCH ×2 (07:45→16:55)
[2020-12-06] MEDS: Lidocaine PATCH 5% PATCH TRANSDERM SCH (09:19)
[2020-12-06 15:45] LABS: C Reactive Protein 148.94 mg/L (<8.01)
[2020-12-06] MEDS: Azithromycin 500 mg/250 ml NS 500 MG/250 ML BAG IVPB SCH (16:04)
[2020-12-06] MEDS: Enoxaparin 40 MG/0.4 ML SYR SUBCUT SCH (16:05)
[2020-12-06] MEDS: cefTRIAXone 1 gm/50 mL NS BAG 1 GM/50 ML BAG IVPB SCH (17:37)
[2020-12-06] MEDS: Latanoprost 0.005% 2.5 ml BTL BOTH EYES SCH ×2 (18:18→21:03)
[2020-12-06] MEDS: CMCS: Sildenafil (PULMONARY)20mg(NF) PO SCH (21:04)
[2020-12-06] MEDS: Lidocaine Patch REMOVE PATCH PATCH OFF SCH (21:12)
[2020-12-07 05:46] LABS: Hematocrit 27 % (42-52); Hemoglobin 9.5 g/dL (14.0-18.0); Mean Corpuscular HGB Conc 35 g/dL (31-36); Mean Corpuscular Hemoglobin 29 pg (27-31); Mean Corpuscular Volume 83 fL (80-94); Mean Platelet Volume 7.1 fL (7.4-10.4); Platelet Count 134 10^3/uL (150-450); Red Blood Count 3.25 10^6 /uL (4.18-5.48); Red Cell Distribution Width 17 % (10-15)
[2020-12-07 06:27] LABS: Acanthocytes 1+
[2020-12-07 06:30] LABS: ABS Lymphocytes 1.1 10^3/ul (1.0-4.8); ABS Monocytes 0.9 10^3/ul (0-0.8); ABS Neutrophils 0.9 10^3/ul (1.5-7.7); Eosinophil % 1.5 %; Lymphocyte % 38.1 %
[2020-12-07] MEDS: Colesevelam 625 mg TAB (NF) PO SCH (07:43)
[2020-12-07] MEDS: Lidocaine PATCH 5% PATCH TRANSDERM SCH (08:32)
[2020-12-07] MEDS ORDERED: Lactated Ringers 500 ml BAG 500 ML IV ONE (11:41)
[2020-12-07] MEDS: Hydrocortisone INJ 100 MG/2ML 2 ML VIAL IV SCH ×2 (12:32→20:27)
[2020-12-07] MEDS: Azithromycin 500 mg/250 ml NS 500 MG/250 ML BAG IVPB SCH (16:02)
[2020-12-07] MEDS: Enoxaparin 40 MG/0.4 ML SYR SUBCUT SCH (16:05)
[2020-12-07 16:19] LABS: Hematocrit 29 % (42-52); Hemoglobin 9.7 g/dL (14.0-18.0)
[2020-12-07] MEDS: cefTRIAXone 1 gm/50 mL NS BAG 1 GM/50 ML BAG IVPB SCH (17:27)
[2020-12-07] MEDS: CMCS: Sildenafil (PULMONARY)20mg(NF) PO SCH (21:05)
[2020-12-07] MEDS: Latanoprost 0.005% 2.5 ml BTL BOTH EYES SCH (21:07)
[2020-12-07] MEDS: Lidocaine Patch REMOVE PATCH PATCH OFF SCH (21:11)
[2020-12-08] MEDS: Hydrocortisone INJ 100 MG/2ML 2 ML VIAL IV SCH (03:51)
[2020-12-08 05:58] LABS: ABS Lymphocytes 0.7 10^3/ul (1.0-4.8); ABS Monocytes 0.4 10^3/ul (0-0.8); ABS Neutrophils 1.1 10^3/ul (1.5-7.7); Hematocrit 26 % (42-52); Hemoglobin 8.9 g/dL (14.0-18.0); Lymphocyte % 32.7 %; Mean Corpuscular HGB Conc 34 g/dL (31-36); Mean Corpuscular Hemoglobin 29 pg (27-31); Mean Corpuscular Volume 84 fL (80-94); Mean Platelet Volume 7.6 fL (7.4-10.4); Nucleated Red Blood Cells % 0.1; Platelet Count 138 10^3/uL (150-450); Red Blood Count 3.12 10^6 /uL (4.18-5.48); Red Cell Distribution Width 16 % (10-15); White Blood Count 2.3 10^3/uL (3.5-10.8)
[2020-12-08 06:18] LABS: BUN/Creatinine Ratio 20.4 (8-20); Calcium 7.7 mg/dL (8.6-10.3); EGFR African American 176.7 (>60)
[2020-12-08] MEDS: Lidocaine PATCH 5% PATCH TRANSDERM SCH (10:29)
[2020-12-08 15:31] VITALS: BP 163/73
[2020-12-08] MEDS: Enoxaparin 40 MG/0.4 ML SYR SUBCUT SCH (15:42)
[2020-12-10 15:49] LABS: Albumin 2.5 g/dL (3.4-4.7); Albumin/Globulin Ratio 1.06; Total Protein(PEP) 4.9 g/dL (6.3 - 7.9)
== END 2020-12-08 16:12 | disposition home or self-care (01) | DRG 542 ==
LOC: ED 09:01 → SSU 16:41 → SUATTDRO 16:41 → SSU 16:47
PROVIDERS: ADMIT Internal Medicine; ATTEND Internal Medicine

== ENCOUNTER 2021-02-08 18:50 | Observation (INO) ==
[2021-02-08] MEDS ORDERED: NS 0.9% 1000 ml BAG 1,000 ML IV ONE (19:49)
[2021-02-08 20:01] LABS: Hematocrit 33 % (42-52); Hemoglobin 11.1 g/dL (14.0-18.0); Mean Corpuscular HGB Conc 34 g/dL (31-36); Mean Corpuscular Hemoglobin 28 pg (27-31); Mean Corpuscular Volume 84 fL (80-94); Mean Platelet Volume 7.3 fL (7.4-10.4); Platelet Count 179 10^3/uL (150-450); Red Blood Count 3.97 10^6 /uL (4.18-5.48); Red Cell Distribution Width 15 % (10-15); White Blood Count 4.6 10^3/uL (3.5-10.8)
[2021-02-08 20:20] LABS: ALT 8 U/L (7-52); AST 26 U/L (13-39); Albumin 3.1 g/dL (3.2-5.2); Albumin/Globulin Ratio 1.4 (1-3); Alkaline Phosphatase 63 U/L (34-104); Anion Gap 3 mmol/L (2-11); Blood Urea Nitrogen 11 mg/dL (6-24); C Reactive Protein 60.77 mg/L (<8.01); CO2 Carbon Dioxide 25 mmol/L (22-32); Calcium 7.6 mg/dL (8.6-10.3); Chloride 100 mmol/L (101-111); Creatine Kinase 36 U/L (10-223); EGFR African American 128.8 (>60); EGFR Non-African American 106.5 (>60); Globulin 2.2 g/dL (2-4); Glucose 118 mg/dL (70-100); Magnesium 1.6 mg/dL (1.9-2.7); Potassium 3.6 mmol/L (3.5-5.0); Sodium 128 mmol/L (135-145); Total Protein 5.3 g/dL (6.4-8.9)
[2021-02-08 20:25] LABS: Troponin I 0.03 ng/mL (<0.03)
[2021-02-08 20:31] LABS: Alcohol, S < 10 mg/dL (<10)
[2021-02-08 20:37] LABS: INR 1.32 (0.82-1.09)
[2021-02-08] MEDS ORDERED: Magnesium Sulfate IV 1GM/100ML 1 GM/100 ML BAG IV ONE (20:37)
[2021-02-08 20:46] LABS: TSH Ultra Thyroid Stim Horm 0.36 mcIU/mL (0.34-5.60)
[2021-02-08 21:19] LABS: ABS Monocytes 1.5 10^3/ul (0-0.8); ABS Neutrophils 2.1 10^3/ul (1.5-7.7); Lymphocyte % 21.8 %
[2021-02-08 22:00] LABS: Urine Appearance Clear; Urine Bilirubin Negative (Negative); Urine Blood 2+ (Negative); Urine Color Yellow; Urine Glucose Negative (Negative); Urine Ketones Negative (Negative); Urine Nitrite Negative (Negative); Urine Protein Negative (Negative); Urine Specific Gravity 1.012 (1.002-1.030); Urine Urobilinogen Negative (Negative)
[2021-02-08 22:03] LABS: Urine Bacteria Absent (Absent); Urine Red Blood Cell 2+(6-10/hpf) (Absent); Urine White Blood Cell Trace(0-5/hpf) (Absent)
[2021-02-08] MEDS ORDERED: Azithromycin 500 mg/250 ml NS 500 MG/250 ML BAG IVPB ONE (22:21)
[2021-02-08] MEDS ORDERED: Gabapentin 600 mg TAB (NF) PO ONE (22:35)
[2021-02-08 22:43] LABS: Urine Benzodiazepine Screen None Detected (None Detect); Urine Cannabinoids Screen None Detected (None Detect); Urine Opiates Screen None Detected (None Detect)
[2021-02-09] MEDS: Enoxaparin 40 MG/0.4 ML SYR SUBCUT SCH (03:18)
[2021-02-09] MEDS: cefTRIAXone 1 gm/50 mL NS BAG 1 GM/50 ML BAG IVPB SCH (03:19)
[2021-02-09 08:24] LABS: Hematocrit 34 % (42-52); Hemoglobin 11.3 g/dL (14.0-18.0); Mean Corpuscular HGB Conc 34 g/dL (31-36); Mean Corpuscular Hemoglobin 28 pg (27-31); Mean Corpuscular Volume 84 fL (80-94); Mean Platelet Volume 7.2 fL (7.4-10.4); Platelet Count 169 10^3/uL (150-450); Red Blood Count 4.01 10^6 /uL (4.18-5.48); Red Cell Distribution Width 15 % (10-15); White Blood Count 4.1 10^3/uL (3.5-10.8)
[2021-02-09 08:36] LABS: EGFR African American 159.5 (>60); EGFR Non-African American 131.8 (>60); Potassium 3.7 mmol/L (3.5-5.0)
[2021-02-09] MEDS: Potassium Chlor 10 meq TAB PO SCH ×2 (09:14→22:11)
[2021-02-09 09:26] LABS: ABS Lymphocytes 1.2 10^3/ul (1.0-4.8); ABS Monocytes 1.4 10^3/ul (0-0.8); ABS Neutrophils 1.4 10^3/ul (1.5-7.7); Eosinophil % 0.6 %; Lymphocyte % 29.6 %
[2021-02-09 14:33] LABS: Troponin I 0.02 ng/mL (<0.03)
[2021-02-09] MEDS ORDERED: SILDENAFIL 20 MG PO SCH (21:00)
[2021-02-09] MEDS ORDERED: Gadoteridol (CONTRAST) 279.3 MG/ML 10 ML IV ONE (21:04)
[2021-02-10] MEDS: cefTRIAXone 1 gm/50 mL NS BAG 1 GM/50 ML BAG IVPB SCH (02:58)
[2021-02-10 06:29] LABS: Hematocrit 31 % (42-52); Hemoglobin 10.6 g/dL (14.0-18.0); Mean Corpuscular HGB Conc 35 g/dL (31-36); Mean Corpuscular Hemoglobin 29 pg (27-31); Mean Corpuscular Volume 83 fL (80-94); Mean Platelet Volume 7.6 fL (7.4-10.4); Platelet Count 167 10^3/uL (150-450); Red Blood Count 3.71 10^6 /uL (4.18-5.48); Red Cell Distribution Width 14 % (10-15); White Blood Count 2.9 10^3/uL (3.5-10.8)
[2021-02-10 06:56] LABS: Calcium 7.8 mg/dL (8.6-10.3); Potassium 3.6 mmol/L (3.5-5.0)
[2021-02-10] MEDS ORDERED: Potassium Chloride LIQUID 20 MEQ/15 ML LIQUID PO ONE (06:57)
[2021-02-10 07:02] LABS: C Reactive Protein 62.1 mg/L (<8.01); EGFR African American 156.5 (>60); EGFR Non-African American 129.3 (>60)
[2021-02-10 07:48] LABS: ABS Lymphocytes 1.4 10^3/ul (1.0-4.8); ABS Monocytes 0.9 10^3/ul (0-0.8); ABS Neutrophils 0.6 10^3/ul (1.5-7.7); Eosinophil % 1.1 %
[2021-02-10] MEDS: Enoxaparin 40 MG/0.4 ML SYR SUBCUT SCH (08:02)
[2021-02-10] MEDS: Potassium Chlor 10 meq TAB PO SCH (08:04)
[2021-02-10 11:36] VITALS: BP 115/68
[2021-02-11 22:25] LABS: Anaplasma phagocytophilum Negative (Negative); B. miyamotoi PCR, B Negative (Negative); Babesia divergens/MO-1 Negative (Negative); Babesia ducani Negative (Negative); Ehrlichia chaffeensis Negative (Negative); Ehrlichia ewingii/canis Negative (Negative); Ehrlichia muris eauclairensis Negative (Negative)
== END 2021-02-10 12:00 | disposition home or self-care (01) ==
LOC: MED 18:50 → ED 18:50 → MED 02-09 05:50
PROVIDERS: ADMIT Internal Medicine; ATTEND Internal Medicine

== ENCOUNTER 2021-02-23 14:36 | Inpatient (IN) ==
[2021-02-23] MEDS ORDERED: NS 0.9% 1000 ml BAG 1,000 ML IV.FLUID IV ONE (15:01)
[2021-02-23] MEDS ORDERED: Neosporin TOPICAL OINT PACKET TOPICAL ONE (15:04)
[2021-02-23] MEDS ORDERED: Piperacillin/Tazobac ADVAN 3.375 GM in NS 0.9% 100 ml BAG 100 ML IVPB ONE (15:07)
[2021-02-23] MEDS ORDERED: NS 0.9% 250 ml 250 ML ONE (15:47)
[2021-02-23 15:53] LABS: Hematocrit 38 % (42-52); Hemoglobin 12.4 g/dL (14.0-18.0); Mean Corpuscular HGB Conc 33 g/dL (31-36); Mean Corpuscular Hemoglobin 27 pg (27-31); Mean Corpuscular Volume 83 fL (80-94); Mean Platelet Volume 7.4 fL (7.4-10.4); Platelet Count 224 10^3/uL (150-450); Red Blood Count 4.53 10^6 /uL (4.18-5.48); Red Cell Distribution Width 15 % (10-15); White Blood Count 3.2 10^3/uL (3.5-10.8)
[2021-02-23] MEDS ORDERED: Vancomycin 1,000 MG in NS 0.9% 250 ml 250 ML IVPB ONE (16:00)
[2021-02-23 16:01] LABS: ABS Lymphocytes 0.6 10^3/ul (1.0-4.8); ABS Monocytes 1.1 10^3/ul (0-0.8); ABS Neutrophils 1.4 10^3/ul (1.5-7.7); Lymphocyte % 18.9 %; Nucleated Red Blood Cells % 0.1
[2021-02-23 16:13] LABS: ALT 11 U/L (7-52); Albumin 3.5 g/dL (3.2-5.2); Albumin/Globulin Ratio 1.3 (1-3); Alkaline Phosphatase 77 U/L (35-149); Anion Gap 5 mmol/L (2-11); Blood Urea Nitrogen 11 mg/dL (6-24); CO2 Carbon Dioxide 24 mmol/L (22-32); Calcium 8.5 mg/dL (8.6-10.3); Chloride 99 mmol/L (101-111); EGFR African American 128.8 (>60); EGFR Non-African American 106.5 (>60); Globulin 2.7 g/dL (2-4); Glucose 117 mg/dL (70-100); Sodium 128 mmol/L (135-145); Total Protein 6.2 g/dL (6.4-8.9); Troponin I 0.03 ng/mL (<0.03)
[2021-02-23 16:14] LABS: AST 33 U/L (13-39); Potassium 4.4 mmol/L (3.5-5.0)
[2021-02-23 16:24] LABS: Activated Partial Thrombo Time 26.5 seconds (26.0-38.0); INR 1.1 (0.82-1.09)
[2021-02-23 17:22] LABS: Erythrocyte Sed Rate 9 mm/Hr (0-19)
[2021-02-23 17:31] LABS: Urine Appearance Clear; Urine Bilirubin Negative (Negative); Urine Blood 1+ (Negative); Urine Color Yellow; Urine Glucose Negative (Negative); Urine Ketones Negative (Negative); Urine Nitrite Negative (Negative); Urine Protein Negative (Negative); Urine Specific Gravity 1.013 (1.002-1.030); Urine Urobilinogen Negative (Negative)
[2021-02-23 17:34] LABS: Urine Bacteria Absent (Absent); Urine Red Blood Cell 2+(6-10/hpf) (Absent); Urine Squamous Epithelial Cell Present (Absent); Urine White Blood Cell Trace(0-5/hpf) (Absent)
[2021-02-23 17:56] LABS: Folate > 20.00 ng/mL (5.90-24.80)
[2021-02-23 17:57] LABS: Vitamin B12 517 pg/mL (180-914)
[2021-02-23] MEDS ORDERED: Ondansetron 4 mg VIAL 2 MG/ML 2 ml VIAL IV PRN (17:57)
[2021-02-23] MEDS ORDERED: Magnesium Hydroxide LIQ 30 ML UDC PO PRN (17:57)
[2021-02-23] MEDS ORDERED: Iohexol 350 (CONTRAST) 500 ML MDV IV ONE (18:12)
[2021-02-23] MEDS ORDERED: Vancomycin per Pharmacy 1 EA NOTE FOLLOW UP SCH (19:00)
[2021-02-23 19:07] LABS: Indirect Bilirubin 1.2 mg/dL (0.3-1.0)
[2021-02-23 20:42] LABS: HIV 4th Generation Nonreactive (Nonreactive)
[2021-02-23] MEDS: Enoxaparin 40 MG/0.4 ML SYR SUBCUT SCH (21:45)
[2021-02-23] MEDS: Potassium Chlor 10 meq TAB PO SCH (21:48)
[2021-02-23] MEDS: CMCS: Sildenafil (PULMONARY)20mg(NF) PO SCH (22:21)
[2021-02-23] MEDS: Cefepime 2 GM in Dextrose 2 GM/50 ML BAG IV SCH (22:25)
[2021-02-24] MEDS: Vancomycin 1000 MG in NS 0.9% 250 ML IVPB SCH ×2 (05:43→17:47)
[2021-02-24 06:13] LABS: Hematocrit 31 % (42-52); Hemoglobin 10.3 g/dL (14.0-18.0); Mean Corpuscular HGB Conc 33 g/dL (31-36); Mean Corpuscular Hemoglobin 28 pg (27-31); Mean Corpuscular Volume 83 fL (80-94); Mean Platelet Volume 7.2 fL (7.4-10.4); Platelet Count 178 10^3/uL (150-450); Red Blood Count 3.71 10^6 /uL (4.18-5.48); Red Cell Distribution Width 14 % (10-15); White Blood Count 3.7 10^3/uL (3.5-10.8)
[2021-02-24 06:31] LABS: Albumin 2.8 g/dL (3.2-5.2); Albumin/Globulin Ratio 1.3 (1-3); C Reactive Protein 88.84 mg/L (<8.01); Calcium 7.7 mg/dL (8.6-10.3); EGFR African American 162.7 (>60); EGFR Non-African American 134.5 (>60); Globulin 2.1 g/dL (2-4); Potassium 3.8 mmol/L (3.5-5.0); Total Bilirubin 1.2 mg/dL (0.2-1.0); Total Protein 4.9 g/dL (6.4-8.9)
[2021-02-24 07:01] LABS: Urine Creatinine Concentration 92.5 mg/dL
[2021-02-24 07:22] LABS: ABS Lymphocytes 1.5 10^3/ul (1.0-4.8); ABS Monocytes 1.2 10^3/ul (0-0.8); ABS Neutrophils 0.9 10^3/ul (1.5-7.7); Lymphocyte % 40.1 %
[2021-02-24] MEDS: Cefepime 2 GM in Dextrose 2 GM/50 ML BAG IV SCH ×2 (09:15→20:23)
[2021-02-24] MEDS: Potassium Chlor 10 meq TAB PO SCH ×2 (09:16→20:06)
[2021-02-24] MEDS: Azithromycin 500 mg/250 ml NS 500 MG/250 ML BAG IVPB SCH (12:09)
[2021-02-24] MEDS: Enoxaparin 40 MG/0.4 ML SYR SUBCUT SCH (20:04)
[2021-02-24] MEDS: CMCS: Sildenafil (PULMONARY)20mg(NF) PO SCH (20:05)
[2021-02-24 20:13] LABS: Magnesium 1.8 mg/dL (1.9-2.7)
[2021-02-25] MEDS ORDERED: Vancomycin Trough Check NOTE FOLLOW UP ONE (05:30)
[2021-02-25 06:22] LABS: Vancomycin Trough 10.6 mcg/mL
[2021-02-25] MEDS: Vancomycin 1000 MG in NS 0.9% 250 ML IVPB SCH (06:36)
[2021-02-25 08:24] LABS: Hematocrit 28 % (42-52); Hemoglobin 9.8 g/dL (14.0-18.0); Mean Corpuscular HGB Conc 34 g/dL (31-36); Mean Corpuscular Hemoglobin 28 pg (27-31); Mean Corpuscular Volume 82 fL (80-94); Mean Platelet Volume 7.6 fL (7.4-10.4); Platelet Count 164 10^3/uL (150-450); Red Blood Count 3.49 10^6 /uL (4.18-5.48); Red Cell Distribution Width 14 % (10-15); White Blood Count 2.8 10^3/uL (3.5-10.8)
[2021-02-25 08:33] LABS: Calcium 7.6 mg/dL (8.6-10.3); Magnesium 1.8 mg/dL (1.9-2.7); Potassium 3.3 mmol/L (3.5-5.0)
[2021-02-25 08:38] LABS: C Reactive Protein 68.61 mg/L (<8.01); EGFR African American 169.4 (>60)
[2021-02-25 09:00] LABS: ABS Lymphocytes 1.5 10^3/ul (1.0-4.8); ABS Monocytes 0.8 10^3/ul (0-0.8); ABS Neutrophils 0.4 10^3/ul (1.5-7.7); Eosinophil % 1.7 %; Lymphocyte % 54.7 %; Nucleated Red Blood Cells % 0.2
[2021-02-25] MEDS ORDERED: Collagenase 250 units/gm OINT 1 tube TOPICAL SCH (09:00)
[2021-02-25] MEDS: Cefepime 2 GM in Dextrose 2 GM/50 ML BAG IV SCH (09:47)
[2021-02-25] MEDS: Potassium Chlor 10 meq TAB PO SCH (09:49)
[2021-02-25 10:18] LABS: TSH Ultra Thyroid Stim Horm 1.07 mcIU/mL (0.34-5.60)
[2021-02-25] MEDS ORDERED: Potassium Chlor 20 meq TAB.ER PO ONE (10:59)
[2021-02-25] MEDS ORDERED: Magnesium Sulfate 2 gm BAG 2 GM/50 ML BAG IVPB ONE (10:59)
[2021-02-25] MEDS: Azithromycin 500 mg/250 ml NS 500 MG/250 ML BAG IVPB SCH (11:18)
[2021-02-25] MEDS ORDERED: Vancomycin 750 MG in NS 0.9% 250 ML IVPB SCH (14:00)
[2021-02-25 16:35] VITALS: BP 149/59
[2021-02-26] MEDS ORDERED: Vancomycin Trough Check NOTE FOLLOW UP ONE (13:30)
== END 2021-02-25 17:15 | disposition home health service (06) | DRG 871 ==
LOC: MED 14:36 → ED 14:36
PROVIDERS: ADMIT Hospitalist; ATTEND Internal Medicine

== ENCOUNTER 2021-03-21 21:46 | Inpatient (IN) ==
[2021-03-21] MEDS ORDERED: Piperacillin/Tazobac ADVAN 3.375 GM in NS 0.9% 100 ml BAG 100 ML IVPB ONE (21:57)
[2021-03-21] MEDS ORDERED: Lactated Ringers 1000 ml BAG 1,000 ML IV ONE (22:00)
[2021-03-21] MEDS ORDERED: Vancomycin 1,000 MG in NS 0.9% 250 ml 250 ML IVPB SCH (22:00)
[2021-03-21] MEDS ORDERED: Vancomycin 1,000 MG - ED ONCE IVPB ONE (22:00)
[2021-03-21 23:04] LABS: Hematocrit 30 % (42-52); Hemoglobin 10.1 g/dL (14.0-18.0); Mean Corpuscular HGB Conc 34 g/dL (31-36); Mean Corpuscular Hemoglobin 27 pg (27-31); Mean Corpuscular Volume 81 fL (80-94); Mean Platelet Volume 7.8 fL (7.4-10.4); Platelet Count 166 10^3/uL (150-450); Red Blood Count 3.72 10^6 /uL (4.18-5.48); Red Cell Distribution Width 16 % (10-15); White Blood Count 3.7 10^3/uL (3.5-10.8)
[2021-03-21 23:07] LABS: Urine Appearance Clear; Urine Bilirubin Negative (Negative); Urine Blood 2+ (Negative); Urine Color Yellow; Urine Glucose Negative (Negative); Urine Ketones Negative (Negative); Urine Nitrite Negative (Negative); Urine Protein Negative (Negative); Urine Specific Gravity 1.016 (1.002-1.030); Urine Urobilinogen Negative (Negative)
[2021-03-21 23:10] LABS: Urine Bacteria Absent (Absent); Urine Red Blood Cell Trace(0-2/hpf) (Absent); Urine White Blood Cell Trace(0-5/hpf) (Absent)
[2021-03-21 23:24] LABS: Activated Partial Thrombo Time 26.1 seconds (26.0-38.0); INR 1.06 (0.82-1.09)
[2021-03-21 23:30] LABS: Albumin 3.1 g/dL (3.2-5.2); Albumin/Globulin Ratio 1.5 (1-3); Calcium 7.7 mg/dL (8.6-10.3); EGFR African American 133.2 (>60); Globulin 2.1 g/dL (2-4); Indirect Bilirubin 0.9 mg/dL (0.3-1.0); Potassium 3.5 mmol/L (3.5-5.0); Total Bilirubin 1.1 mg/dL (0.2-1.0); Total Protein 5.2 g/dL (6.4-8.9)
[2021-03-21 23:31] LABS: Troponin I 0.02 ng/mL (<0.03)
[2021-03-21 23:50] LABS: Acanthocytes 1+
[2021-03-21 23:51] LABS: ABS Lymphocytes 1.1 10^3/ul (1.0-4.8); ABS Monocytes 1.4 10^3/ul (0-0.8); ABS Neutrophils 1.1 10^3/ul (1.5-7.7); Eosinophil % 0.4 %; Lymphocyte % 30.7 %; Nucleated Red Blood Cells % 0.1
[2021-03-21] MEDS ORDERED: Iohexol 300 (CONTRAST) 10 ML SDV IV ONE (23:51)
[2021-03-21 23:54] LABS: Influenza A Molecular Negative (Negative); Influenza B Molecular Negative (Negative)
[2021-03-22] MEDS ORDERED: Vancomycin per Pharmacy 1 EA NOTE FOLLOW UP SCH (02:00)
[2021-03-22 04:34] LABS: C Reactive Protein 67.32 mg/L (<8.01)
[2021-03-22] MEDS: CEFEPIME IVPB SCH ×2 (05:29→16:58)
[2021-03-22] MEDS: FLUID IVPB SCH ×2 (05:29→16:58)
[2021-03-22] MEDS: NS IVPB SCH ×2 (05:29→16:58)
[2021-03-22] MEDS: Enoxaparin 40 MG/0.4 ML SYR SUBCUT SCH (09:31)
[2021-03-22] MEDS: Vancomycin 1,000 MG in NS 0.9% 250 ml 250 ML IVPB SCH ×2 (11:30→23:26)
[2021-03-23] MEDS: FLUID IVPB SCH (05:02)
[2021-03-23] MEDS: CEFEPIME IVPB SCH (05:02)
[2021-03-23] MEDS: NS IVPB SCH (05:02)
[2021-03-23 06:10] LABS: Hematocrit 30 % (42-52); Mean Corpuscular HGB Conc 34 g/dL (31-36); Mean Corpuscular Hemoglobin 27 pg (27-31); Mean Corpuscular Volume 81 fL (80-94); Mean Platelet Volume 7.1 fL (7.4-10.4); Platelet Count 157 10^3/uL (150-450); Red Blood Count 3.67 10^6 /uL (4.18-5.48); Red Cell Distribution Width 15 % (10-15); White Blood Count 2.2 10^3/uL (3.5-10.8)
[2021-03-23 06:22] LABS: Calcium 7.7 mg/dL (8.6-10.3); EGFR African American 150.7 (>60); EGFR Non-African American 124.5 (>60); Potassium 3.1 mmol/L (3.5-5.0)
[2021-03-23 06:28] LABS: ABS Eosinophils 0.1 10^3/ul (0-0.6); ABS Monocytes 0.6 10^3/ul (0-0.8); ABS Neutrophils 0.4 10^3/ul (1.5-7.7); Eosinophil % 5.3 %; Nucleated Red Blood Cells % 0.1
[2021-03-23] MEDS: Enoxaparin 40 MG/0.4 ML SYR SUBCUT SCH (09:47)
[2021-03-23] MEDS: Potassium Chlor 20 meq TAB.ER PO SCH ×2 (09:48→13:42)
[2021-03-23] MEDS ORDERED: Vancomycin Trough Check NOTE FOLLOW UP ONE (11:00)
[2021-03-23 12:27] VITALS: BP 163/69
[2021-03-23] MEDS: Vancomycin 1,000 MG in NS 0.9% 250 ml 250 ML IVPB SCH (13:38)
== END 2021-03-23 14:50 | disposition home or self-care (01) | DRG 194 ==
LOC: ED 21:46 → MED 03-22 01:45
PROVIDERS: ADMIT Student in an Organized Health Care Education/Training Program; ATTEND Hospitalist

== ENCOUNTER 2021-04-19 18:26 | Inpatient (IN) ==
[2021-04-19 20:18] LABS: Hematocrit 33 % (42-52); Hemoglobin 10.9 g/dL (14.0-18.0); Mean Corpuscular HGB Conc 33 g/dL (31-36); Mean Corpuscular Hemoglobin 27 pg (27-31); Mean Corpuscular Volume 81 fL (80-94); Mean Platelet Volume 7.8 fL (7.4-10.4); Platelet Count 148 10^3/uL (150-450); Red Blood Count 4.01 10^6 /uL (4.18-5.48); Red Cell Distribution Width 16 % (10-15); White Blood Count 2.7 10^3/uL (3.5-10.8)
[2021-04-19] MEDS ORDERED: Bacitracin OINTMENT TUBE TOPICAL ONE (20:19)
[2021-04-19 20:45] LABS: ABS Lymphocytes 0.8 10^3/ul (1.0-4.8); ABS Monocytes 1.1 10^3/ul (0-0.8); Eosinophil % 0.3 %; Lymphocyte % 28.4 %; Nucleated Red Blood Cells % 0.3
[2021-04-19 20:47] LABS: Albumin 3.3 g/dL (3.2-5.2); Anion Gap 6 mmol/L (2-11); CO2 Carbon Dioxide 23 mmol/L (22-32); Calcium 8.1 mg/dL (8.6-10.3); Chloride 104 mmol/L (101-111); Potassium 2.9 mmol/L (3.5-5.0); Sodium 133 mmol/L (135-145)
[2021-04-19 20:53] LABS: ALT 13 U/L (7-52); AST 34 U/L (13-39); Albumin/Globulin Ratio 1.7 (1-3); Alkaline Phosphatase 65 U/L (35-149); Blood Urea Nitrogen 15 mg/dL (6-24); EGFR African American 122.8 (>60); EGFR Non-African American 101.5 (>60); Globulin 1.9 g/dL (2-4); Glucose 167 mg/dL (70-100); Total Protein 5.2 g/dL (6.4-8.9)
[2021-04-19 21:01] LABS: Platelet Morphology Large; RBC Morphology Normal (Normal)
[2021-04-19 21:06] LABS: Troponin I 0.04 ng/mL (<0.03)
[2021-04-19] MEDS: Cefepime 2 GM in Dextrose 2 GM/50 ML BAG IV SCH (21:43)
[2021-04-19] MEDS ORDERED: Potassium Chlor 20 meq TAB.ER PO ONE (22:42)
[2021-04-19] MEDS: Lactated Ringers 1000 ml BAG 1,000 ML IV SCH (23:40)
[2021-04-19] MEDS: Enoxaparin 40 MG/0.4 ML SYR SUBCUT SCH (23:41)
[2021-04-20 00:38] LABS: C Reactive Protein 82.76 mg/L (<8.01)
[2021-04-20 03:06] LABS: Hematocrit 29 % (42-52); Hemoglobin 9.7 g/dL (14.0-18.0); Mean Corpuscular HGB Conc 34 g/dL (31-36); Mean Corpuscular Hemoglobin 27 pg (27-31); Mean Corpuscular Volume 81 fL (80-94); Mean Platelet Volume 7.5 fL (7.4-10.4); Platelet Count 128 10^3/uL (150-450); Red Blood Count 3.56 10^6 /uL (4.18-5.48); Red Cell Distribution Width 16 % (10-15)
[2021-04-20] MEDS: metroNIDAZOLE IV 500 MG/100ML 500 MG/100 ML BAG IVPB SCH ×3 (03:08→17:29)
[2021-04-20 03:18] LABS: ABS Lymphocytes 1.5 10^3/ul (1.0-4.8); ABS Monocytes 1.6 10^3/ul (0-0.8); Eosinophil % 0.2 %; Lymphocyte % 38.7 %
[2021-04-20 03:21] LABS: ABS Neutrophils 0.8 10^3/ul (1.5-7.7); Calcium 7.9 mg/dL (8.6-10.3); EGFR African American 135.4 (>60); EGFR Non-African American 111.9 (>60); Potassium 3.3 mmol/L (3.5-5.0)
[2021-04-20 06:06] LABS: ABS Neutrophils 0.8 10^3/ul (1.5-7.7)
[2021-04-20] MEDS ORDERED: Potassium Chlor 20 meq TAB.ER PO ONE (06:22)
[2021-04-20 08:23] LABS: Hematocrit 28 % (42-52); Hemoglobin 9.7 g/dL (14.0-18.0); Mean Corpuscular HGB Conc 34 g/dL (31-36); Mean Corpuscular Hemoglobin 28 pg (27-31); Mean Corpuscular Volume 81 fL (80-94); Mean Platelet Volume 7.7 fL (7.4-10.4); Platelet Count 122 10^3/uL (150-450); Red Blood Count 3.52 10^6 /uL (4.18-5.48); Red Cell Distribution Width 16 % (10-15); White Blood Count 3.4 10^3/uL (3.5-10.8)
[2021-04-20 08:45] LABS: Calcium 7.9 mg/dL (8.6-10.3); EGFR African American 140.2 (>60); EGFR Non-African American 115.8 (>60); Potassium 3.4 mmol/L (3.5-5.0)
[2021-04-20] MEDS: Cefepime 2 GM in Dextrose 2 GM/50 ML BAG IV SCH ×2 (09:16→20:44)
[2021-04-20 09:32] LABS: ABS Lymphocytes 1.3 10^3/ul (1.0-4.8); ABS Monocytes 1.3 10^3/ul (0-0.8); ABS Neutrophils 0.7 10^3/ul (1.5-7.7); Eosinophil % 0.7 %; Lymphocyte % 39.6 %; Nucleated Red Blood Cells % 0.2
[2021-04-20 09:36] LABS: RBC Morphology Normal (Normal)
[2021-04-20] MEDS ORDERED: Potassium Chlor 10 meq TAB PO ONE (11:55)
[2021-04-20] MEDS ORDERED: Vancomycin 1,000 MG in NS 0.9% 250 ml 250 ML IVPB ONE (13:15)
[2021-04-20] MEDS: Enoxaparin 40 MG/0.4 ML SYR SUBCUT SCH (20:43)
[2021-04-20] MEDS: SILDENAFIL 20 MG PO SCH (20:57)
[2021-04-20] MEDS: Vancomycin 1000 MG in NS 0.9% 250 ML IVPB SCH (22:42)
[2021-04-20] MEDS: Lactated Ringers 1000 ml BAG 1,000 ML IV SCH (22:53)
[2021-04-21] MEDS: metroNIDAZOLE IV 500 MG/100ML 500 MG/100 ML BAG IVPB SCH (01:57)
[2021-04-21 05:30] LABS: Hematocrit 27 % (42-52); Mean Corpuscular HGB Conc 34 g/dL (31-36); Mean Corpuscular Hemoglobin 28 pg (27-31); Mean Corpuscular Volume 81 fL (80-94); Mean Platelet Volume 7.9 fL (7.4-10.4); Platelet Count 109 10^3/uL (150-450); Red Blood Count 3.28 10^6 /uL (4.18-5.48); Red Cell Distribution Width 16 % (10-15)
[2021-04-21 05:44] LABS: Calcium 7.5 mg/dL (8.6-10.3); EGFR African American 140.2 (>60); EGFR Non-African American 115.8 (>60); Magnesium 1.5 mg/dL (1.9-2.7); Potassium 3.2 mmol/L (3.5-5.0)
[2021-04-21 07:44] LABS: ABS Neutrophils 0.6 10^3/ul (1.5-7.7)
[2021-04-21 08:10] LABS: Acanthocytes 1+
[2021-04-21 08:11] LABS: Anisocytosis 1+
[2021-04-21 08:12] LABS: ABS Eosinophils 0.1 10^3/ul (0-0.6); ABS Lymphocytes 1.1 10^3/ul (1.0-4.8)
[2021-04-21 08:13] LABS: ABS Neutrophils 0.6 10^3/ul (1.5-7.7)
[2021-04-21] MEDS: Vancomycin 1000 MG in NS 0.9% 250 ML IVPB SCH ×2 (10:27→23:18)
[2021-04-21] MEDS: Lactated Ringers 1000 ml BAG 1,000 ML IV SCH (10:36)
[2021-04-21] MEDS: Cefepime 2 GM in Dextrose 2 GM/50 ML BAG IV SCH (12:17)
[2021-04-21] MEDS ORDERED: Potassium Chlor 10 meq TAB PO ONE (13:53)
[2021-04-21] MEDS ORDERED: Magnesium Sulfate 2 gm BAG 2 GM/50 ML BAG IVPB ONE (13:53)
[2021-04-21] MEDS: cefTRIAXone 1 gm/50 mL NS BAG 1 GM/50 ML BAG IVPB SCH (18:12)
[2021-04-21] MEDS: Enoxaparin 40 MG/0.4 ML SYR SUBCUT SCH (20:44)
[2021-04-21] MEDS: SILDENAFIL 20 MG PO SCH (20:46)
[2021-04-22 05:44] LABS: Hematocrit 30 % (42-52); Hemoglobin 9.4 g/dL (14.0-18.0); Mean Corpuscular HGB Conc 32 g/dL (31-36); Mean Corpuscular Hemoglobin 27 pg (27-31); Mean Corpuscular Volume 86 fL (80-94); Mean Platelet Volume 8.1 fL (7.4-10.4); Platelet Count 126 10^3/uL (150-450); Red Blood Count 3.43 10^6 /uL (4.18-5.48); Red Cell Distribution Width 17 % (10-15); White Blood Count 1.7 10^3/uL (3.5-10.8)
[2021-04-22 05:48] LABS: ABS Neutrophils 0.4 10^3/ul (1.5-7.7)
[2021-04-22 05:53] LABS: Calcium 7.4 mg/dL (8.6-10.3); EGFR African American 133.2 (>60); Potassium 3.4 mmol/L (3.5-5.0)
[2021-04-22 06:04] LABS: ABS Eosinophils 0.1 10^3/ul (0-0.6); ABS Lymphocytes 0.7 10^3/ul (1.0-4.8); ABS Monocytes 0.5 10^3/ul (0-0.8); Eosinophil % 7.4 %; Nucleated Red Blood Cells % 0.2
[2021-04-22 08:44] LABS: Anaplasma phagocytophilum Negative (Negative); B. miyamotoi PCR, B Negative (Negative); Babesia divergens/MO-1 Negative (Negative); Babesia ducani Negative (Negative); Ehrlichia chaffeensis Negative (Negative); Ehrlichia ewingii/canis Negative (Negative); Ehrlichia muris eauclairensis Negative (Negative)
[2021-04-22] MEDS ORDERED: Vancomycin Trough Check NOTE FOLLOW UP ONE (10:30)
[2021-04-22 11:35] LABS: Magnesium 1.8 mg/dL (1.9-2.7)
[2021-04-22] MEDS ORDERED: Vancomycin per Pharmacy 1 EA NOTE FOLLOW UP PRN (12:05)
[2021-04-22] MEDS: Vancomycin 1000 MG in NS 0.9% 250 ML IVPB SCH ×2 (14:54→23:21)
[2021-04-22] MEDS: cefTRIAXone 1 gm/50 mL NS BAG 1 GM/50 ML BAG IVPB SCH (18:29)
[2021-04-22] MEDS: Enoxaparin 40 MG/0.4 ML SYR SUBCUT SCH (21:03)
[2021-04-22] MEDS: SILDENAFIL 20 MG PO SCH (21:17)
[2021-04-23 04:43] LABS: Hematocrit 26 % (42-52); Hemoglobin 8.7 g/dL (14.0-18.0); Mean Corpuscular HGB Conc 34 g/dL (31-36); Mean Corpuscular Hemoglobin 28 pg (27-31); Mean Corpuscular Volume 81 fL (80-94); Mean Platelet Volume 7.5 fL (7.4-10.4); Platelet Count 121 10^3/uL (150-450); Red Blood Count 3.16 10^6 /uL (4.18-5.48); Red Cell Distribution Width 16 % (10-15); White Blood Count 1.9 10^3/uL (3.5-10.8)
[2021-04-23 04:56] LABS: Calcium 7.3 mg/dL (8.6-10.3); EGFR Non-African American 108.2 (>60); Magnesium 1.8 mg/dL (1.9-2.7); Potassium 3.1 mmol/L (3.5-5.0)
[2021-04-23 05:03] LABS: ABS Eosinophils 0.1 10^3/ul (0-0.6); ABS Lymphocytes 1.1 10^3/ul (1.0-4.8); ABS Monocytes 0.6 10^3/ul (0-0.8)
[2021-04-23 05:04] LABS: Lymphocyte % 55.4 %
[2021-04-23 05:06] LABS: Eosinophil % 5.8 %
[2021-04-23 05:07] LABS: Nucleated Red Blood Cells % 0.4
[2021-04-23 05:09] LABS: ABS Neutrophils 0.1 10^3/ul (1.5-7.7)
[2021-04-23] MEDS ORDERED: Potassium Chlor 20 meq TAB.ER PO ONE (06:52)
[2021-04-23] MEDS ORDERED: Magnesium Sulfate 2 gm BAG 2 GM/50 ML BAG IVPB ONE (06:52)
[2021-04-23] MEDS: Nystatin TOP POWDER 15 GM BTL TOPICAL SCH ×2 (11:49→21:28)
[2021-04-23] MEDS: Vancomycin 1000 MG in NS 0.9% 250 ML IVPB SCH ×2 (12:21→23:25)
[2021-04-23] MEDS: cefTRIAXone 1 gm/50 mL NS BAG 1 GM/50 ML BAG IVPB SCH (18:21)
[2021-04-23] MEDS: Enoxaparin 40 MG/0.4 ML SYR SUBCUT SCH (21:24)
[2021-04-23] MEDS: SILDENAFIL 20 MG PO SCH (21:27)
[2021-04-24 04:56] LABS: Hematocrit 27 % (42-52); Hemoglobin 9.1 g/dL (14.0-18.0); Mean Corpuscular HGB Conc 34 g/dL (31-36); Mean Corpuscular Hemoglobin 27 pg (27-31); Mean Corpuscular Volume 81 fL (80-94); Mean Platelet Volume 7.6 fL (7.4-10.4); Platelet Count 131 10^3/uL (150-450); Red Blood Count 3.36 10^6 /uL (4.18-5.48); Red Cell Distribution Width 16 % (10-15); White Blood Count 3.4 10^3/uL (3.5-10.8)
[2021-04-24 05:14] LABS: Calcium 7.2 mg/dL (8.6-10.3); EGFR African American 162.7 (>60); EGFR Non-African American 134.5 (>60); Magnesium 1.9 mg/dL (1.9-2.7); Potassium 3.2 mmol/L (3.5-5.0)
[2021-04-24] MEDS ORDERED: Potassium Chlor 20 meq TAB.ER PO ONE (08:34)
[2021-04-24] MEDS: Vancomycin 1000 MG in NS 0.9% 250 ML IVPB SCH ×2 (10:30→23:18)
[2021-04-24 10:55] LABS: Acanthocytes 3+
[2021-04-24 10:57] LABS: ABS Eosinophils 0.1 10^3/ul (0-0.6); ABS Monocytes 1.1 10^3/ul (0-0.8); ABS Neutrophils 1.2 10^3/ul (1.5-7.7); Eosinophil % 3.6 %; Lymphocyte % 29.6 %
[2021-04-24] MEDS: Nystatin TOP POWDER 15 GM BTL TOPICAL SCH ×2 (11:13→23:18)
[2021-04-24 16:13] LABS: Cytomegalovirus IgG Antibody Positive (Negative)
[2021-04-24] MEDS: cefTRIAXone 1 gm/50 mL NS BAG 1 GM/50 ML BAG IVPB SCH (18:17)
[2021-04-24] MEDS: SILDENAFIL 20 MG PO SCH (20:38)
[2021-04-24] MEDS: Enoxaparin 40 MG/0.4 ML SYR SUBCUT SCH (20:43)
[2021-04-25 05:53] LABS: Hematocrit 28 % (42-52); Hemoglobin 9.6 g/dL (14.0-18.0); Mean Corpuscular HGB Conc 34 g/dL (31-36); Mean Corpuscular Hemoglobin 28 pg (27-31); Mean Corpuscular Volume 81 fL (80-94); Mean Platelet Volume 7.4 fL (7.4-10.4); Platelet Count 139 10^3/uL (150-450); Red Blood Count 3.47 10^6 /uL (4.18-5.48); Red Cell Distribution Width 17 % (10-15); White Blood Count 3.8 10^3/uL (3.5-10.8)
[2021-04-25 06:05] LABS: Calcium 7.3 mg/dL (8.6-10.3); EGFR African American 145.2 (>60); Magnesium 1.8 mg/dL (1.9-2.7); Potassium 3.6 mmol/L (3.5-5.0)
[2021-04-25 07:01] LABS: ABS Basophils 0.1 10^3/ul (0-0.2); ABS Eosinophils 0.3 10^3/ul (0-0.6); ABS Lymphocytes 0.9 10^3/ul (1.0-4.8); ABS Monocytes 0.9 10^3/ul (0-0.8); ABS Neutrophils 1.6 10^3/ul (1.5-7.7); Eosinophil % 6.8 %; Lymphocyte % 24.9 %
[2021-04-25] MEDS: Nystatin TOP POWDER 15 GM BTL TOPICAL SCH ×2 (08:14→22:15)
[2021-04-25] MEDS ORDERED: Vancomycin Trough Check NOTE FOLLOW UP ONE (10:30)
[2021-04-25 11:15] LABS: EGFR African American 147.9 (>60); EGFR Non-African American 122.2 (>60)
[2021-04-25 11:47] LABS: Vancomycin Trough 12.9 mcg/mL
[2021-04-25] MEDS: Vancomycin 1000 MG in NS 0.9% 250 ML IVPB SCH ×2 (12:15→22:39)
[2021-04-25 12:19] LABS: TB1 Ag minus Nil Result -0.01 IU/mL; TB2 Ag minus Nil Result -0.01 IU/mL
[2021-04-25 12:20] LABS: QuantiferonTb Gold Plus Result Negative (Negative)
[2021-04-25] MEDS: cefTRIAXone 1 gm/50 mL NS BAG 1 GM/50 ML BAG IVPB SCH (17:35)
[2021-04-25] MEDS: SILDENAFIL 20 MG PO SCH (22:13)
[2021-04-25] MEDS: Enoxaparin 40 MG/0.4 ML SYR SUBCUT SCH (22:15)
[2021-04-26 06:44] LABS: Hematocrit 29 % (42-52); Mean Corpuscular HGB Conc 35 g/dL (31-36); Mean Corpuscular Hemoglobin 28 pg (27-31); Mean Corpuscular Volume 81 fL (80-94); Mean Platelet Volume 7.9 fL (7.4-10.4); Platelet Count 151 10^3/uL (150-450); Red Blood Count 3.52 10^6 /uL (4.18-5.48); Red Cell Distribution Width 16 % (10-15); White Blood Count 5.6 10^3/uL (3.5-10.8)
[2021-04-26 07:01] LABS: Calcium 7.6 mg/dL (8.6-10.3); EGFR African American 156.5 (>60); EGFR Non-African American 129.3 (>60); Magnesium 1.7 mg/dL (1.9-2.7); Potassium 3.1 mmol/L (3.5-5.0)
[2021-04-26 07:18] LABS: Anisocytosis 1+; Polychromasia 1+; Toxic Granulation 1+
[2021-04-26 07:19] LABS: Acanthocytes 1+; Burr Cells 1+
[2021-04-26 07:20] LABS: ABS Basophils 0.1 10^3/ul (0-0.2); ABS Eosinophils 0.2 10^3/ul (0-0.6); ABS Lymphocytes 1.2 10^3/ul (1.0-4.8); ABS Monocytes 1.1 10^3/ul (0-0.8); Eosinophil % 3.8 %; Lymphocyte % 21.3 %; Nucleated Red Blood Cells % 0.1
[2021-04-26] MEDS: Nystatin TOP POWDER 15 GM BTL TOPICAL SCH (08:27)
[2021-04-26] MEDS: Vancomycin 1000 MG in NS 0.9% 250 ML IVPB SCH (10:44)
[2021-04-26 11:49] VITALS: BP 92/48
[2021-04-28] MEDS ORDERED: Vancomycin Trough Check NOTE FOLLOW UP ONE (10:30)
== END 2021-04-26 15:05 | disposition home or self-care (01) | DRG 809 ==
LOC: ED 18:26 → MED 22:35
PROVIDERS: ADMIT Hospitalist; ATTEND Internal Medicine

== ENCOUNTER 2021-08-23 15:28 | Inpatient (IN) ==
[2021-08-23] MEDS ORDERED: Lactated Ringers 1000 ml BAG 1,000 ML IV ONE ×2 (15:44→17:18)
[2021-08-23 16:19] LABS: Hematocrit 35 % (42-52); Hemoglobin 11.5 g/dL (14.0-18.0); Mean Corpuscular HGB Conc 33 g/dL (31-36); Mean Corpuscular Hemoglobin 29 pg (27-31); Mean Corpuscular Volume 86 fL (80-94); Mean Platelet Volume 7.5 fL (7.4-10.4); Platelet Count 206 10^3/uL (150-450); Red Blood Count 4.02 10^6 /uL (4.18-5.48); Red Cell Distribution Width 18 % (10-15); Venous Bicarbonate HCO3 22.3 mmol/L (24-28); White Blood Count 12.5 10^3/uL (3.5-10.8)
[2021-08-23 16:30] LABS: Activated Partial Thrombo Time 25.7 seconds (26.0-38.0); INR 1.21 (0.86-1.15)
[2021-08-23 16:39] LABS: ALT 12 U/L (7-52); AST 44 U/L (13-39); Albumin 3.5 g/dL (3.2-5.2); Albumin/Globulin Ratio 1.5 (1-3); Alkaline Phosphatase 85 U/L (35-149); Anion Gap 9 mmol/L (2-11); Blood Urea Nitrogen 12 mg/dL (6-24); C Reactive Protein 45.01 mg/L (<8.01); CO2 Carbon Dioxide 24 mmol/L (22-32); Calcium 8.2 mg/dL (8.6-10.3); Chloride 104 mmol/L (101-111); Globulin 2.3 g/dL (2-4); Glucose 119 mg/dL (70-100); Potassium 3.1 mmol/L (3.5-5.0); Sodium 137 mmol/L (135-145); Total Protein 5.8 g/dL (6.4-8.9); eGFR CKD-EPI 90.8 (>60)
[2021-08-23 16:40] LABS: Influenza A Molecular Negative (Negative); Influenza B Molecular Negative (Negative); Rapid COVID-19 Molecular Undetected (Undetected)
[2021-08-23 16:43] LABS: Troponin I 0.03 ng/mL (<0.03)
[2021-08-23] MEDS ORDERED: Bacitracin OINTMENT TUBE TOPICAL ONE (17:07)
[2021-08-23 17:09] LABS: ABS Basophils 0.1 10^3/ul (0-0.2); ABS Lymphocytes 0.5 10^3/ul (1.0-4.8); ABS Monocytes 1.7 10^3/ul (0-0.8); ABS Neutrophils 10.2 10^3/ul (1.5-7.7)
[2021-08-23] MEDS ORDERED: Piperacillin/Tazobac ADVAN 3.375 GM in NS 0.9% 100 ml BAG 100 ML IVPB ONE (17:15)
[2021-08-23 17:19] LABS: Ferritin 113.2 ng/mL (24-336)
[2021-08-23 17:26] LABS: Urine Appearance Clear; Urine Bilirubin Negative (Negative); Urine Blood Negative (Negative); Urine Color Yellow; Urine Glucose Negative (Negative); Urine Ketones Negative (Negative); Urine Nitrite Negative (Negative); Urine Protein Negative (Negative); Urine Specific Gravity 1.014 (1.002-1.030); Urine Urobilinogen Negative (Negative)
[2021-08-23 17:26] LABS: LDH 749 U/L (140-271)
[2021-08-23] MEDS ORDERED: Al Hydrox/Mg Hydrox/Simet LIQ 30 ML UDC PO PRN (18:24)
[2021-08-23] MEDS ORDERED: Ondansetron 4 mg VIAL 2 MG/ML 2 ml VIAL IV PRN (18:24)
[2021-08-23] MEDS ORDERED: Enoxaparin 40 MG/0.4 ML SYR SUBCUT SCH (19:00)
[2021-08-23] MEDS ORDERED: Vancomycin 1,500 MG in NS 0.9% 250 ml 250 ML IVPB ONE (19:00)
[2021-08-23] MEDS ORDERED: Vancomycin per Pharmacy 1 EA NOTE FOLLOW UP PRN (19:44)
[2021-08-23] MEDS ORDERED: Iohexol 300 (CONTRAST) 10 ML SDV IV ONE (20:00)
[2021-08-23] MEDS ORDERED: Lactated Ringers 1000 ml BAG 1,000 ML IV SCH (20:00)
[2021-08-23] MEDS: Potassium Chlor 20 meq TAB.ER PO SCH (20:00)
[2021-08-23 20:37] LABS: Rapid COVID-19 Molecular Undetected (Undetected)
[2021-08-23 21:02] LABS: Troponin I 0.05 ng/mL (<0.03)
[2021-08-24] MEDS: Potassium Chlor 20 meq TAB.ER PO SCH (00:29)
[2021-08-24] MEDS: Cefepime 2 GM in Dextrose 2 GM/50 ML BAG IV SCH ×2 (00:42→13:20)
[2021-08-24] MEDS: CMCS: Sildenafil (PULMONARY)20mg(NF) PO SCH ×2 (01:05→21:47)
[2021-08-24] MEDS: metroNIDAZOLE IV 500 MG/100ML 500 MG/100 ML BAG IVPB SCH ×3 (01:08→16:39)
[2021-08-24 06:24] LABS: ABS Basophils 0.1 10^3/ul (0-0.2); ABS Monocytes 1.4 10^3/ul (0-0.8); ABS Neutrophils 6.3 10^3/ul (1.5-7.7); Eosinophil % 0.3 %; Hematocrit 27 % (42-52); Hemoglobin 9.3 g/dL (14.0-18.0); Lymphocyte % 11.4 %; Mean Corpuscular HGB Conc 34 g/dL (31-36); Mean Corpuscular Hemoglobin 29 pg (27-31); Mean Corpuscular Volume 85 fL (80-94); Mean Platelet Volume 7.5 fL (7.4-10.4); Nucleated Red Blood Cells % 0.1; Platelet Count 147 10^3/uL (150-450); Red Blood Count 3.21 10^6 /uL (4.18-5.48); Red Cell Distribution Width 17 % (10-15); White Blood Count 8.9 10^3/uL (3.5-10.8)
[2021-08-24 06:41] LABS: ALT 8 U/L (7-52); AST 39 U/L (13-39); Albumin 2.7 g/dL (3.2-5.2); Albumin/Globulin Ratio 1.6 (1-3); Alkaline Phosphatase 62 U/L (35-149); Anion Gap 4 mmol/L (2-11); Blood Urea Nitrogen 10 mg/dL (6-24); CO2 Carbon Dioxide 23 mmol/L (22-32); Calcium 7.6 mg/dL (8.6-10.3); Chloride 109 mmol/L (101-111); Globulin 1.7 g/dL (2-4); Glucose 86 mg/dL (70-100); Potassium 3.6 mmol/L (3.5-5.0); Sodium 136 mmol/L (135-145); Total Protein 4.4 g/dL (6.4-8.9); eGFR CKD-EPI 95.4 (>60)
[2021-08-24] MEDS ORDERED: Potassium Chlor 20 meq TAB.ER PO ONE (06:54)
[2021-08-24 06:56] LABS: Troponin I 0.05 ng/mL (<0.03)
[2021-08-24] MEDS: Vancomycin 1000 MG in NS 0.9% 250 ML IVPB SCH ×2 (10:23→21:51)
[2021-08-24] MEDS: COLESEVELAM 625 MG PO SCH ×3 (11:06→17:00)
[2021-08-24] MEDS: Enoxaparin 40 MG/0.4 ML SYR SUBCUT SCH (21:49)
[2021-08-25] MEDS: Cefepime 2 GM in Dextrose 2 GM/50 ML BAG IV SCH ×2 (00:02→13:48)
[2021-08-25] MEDS: metroNIDAZOLE IV 500 MG/100ML 500 MG/100 ML BAG IVPB SCH ×3 (00:53→17:29)
[2021-08-25 02:07] LABS: Calcium 7.3 mg/dL (8.6-10.3); Magnesium 1.7 mg/dL (1.9-2.7); Potassium 3.5 mmol/L (3.5-5.0); eGFR CKD-EPI 95.9 (>60)
[2021-08-25] MEDS ORDERED: Magnesium Sulfate 2 gm BAG 2 GM/50 ML BAG IVPB ONE (02:21)
[2021-08-25] MEDS ORDERED: Atropine 1 MG/ML INJ 1 ML VIAL IV PUSH PRN (02:23)
[2021-08-25] MEDS: KCL 20 MEQ/100 ML IVPREMIX 20 MEQ/100 ML BAG IV SCH ×2 (02:40→06:34)
[2021-08-25] MEDS ORDERED: Calcium Gluconate 2 GM in NS 0.9% 100 ml BAG 100 ML IV ONE (03:00)
[2021-08-25] MEDS ORDERED: Vancomycin Trough Check NOTE FOLLOW UP ONE (08:30)
[2021-08-25] MEDS: COLESEVELAM 625 MG PO SCH ×3 (09:09→17:29)
[2021-08-25 09:12] LABS: ABS Eosinophils 0.1 10^3/ul (0-0.6); ABS Lymphocytes 0.7 10^3/ul (1.0-4.8); ABS Monocytes 0.9 10^3/ul (0-0.8); ABS Neutrophils 2.6 10^3/ul (1.5-7.7); Eosinophil % 1.2 %; Hematocrit 30 % (42-52); Hemoglobin 10.1 g/dL (14.0-18.0); Lymphocyte % 16.1 %; Mean Corpuscular HGB Conc 33 g/dL (31-36); Mean Corpuscular Hemoglobin 29 pg (27-31); Mean Corpuscular Volume 85 fL (80-94); Mean Platelet Volume 7.4 fL (7.4-10.4); Nucleated Red Blood Cells % 0.1; Platelet Count 159 10^3/uL (150-450); Red Blood Count 3.53 10^6 /uL (4.18-5.48); Red Cell Distribution Width 18 % (10-15); White Blood Count 4.3 10^3/uL (3.5-10.8)
[2021-08-25 09:22] LABS: Calcium 8.1 mg/dL (8.6-10.3); Potassium 3.7 mmol/L (3.5-5.0); eGFR CKD-EPI 95.9 (>60)
[2021-08-25] MEDS: Vancomycin 1000 MG in NS 0.9% 250 ML IVPB SCH ×2 (10:43→20:04)
[2021-08-25] MEDS ORDERED: Potassium Chlor 20 meq TAB.ER PO ONE (18:03)
[2021-08-25] MEDS: CMCS: Sildenafil (PULMONARY)20mg(NF) PO SCH (20:01)
[2021-08-25] MEDS: Enoxaparin 40 MG/0.4 ML SYR SUBCUT SCH (20:08)
[2021-08-26] MEDS: Cefepime 2 GM in Dextrose 2 GM/50 ML BAG IV SCH ×2 (00:01→14:25)
[2021-08-26] MEDS: metroNIDAZOLE IV 500 MG/100ML 500 MG/100 ML BAG IVPB SCH ×2 (00:54→15:18)
[2021-08-26 05:59] LABS: ABS Lymphocytes 0.9 10^3/ul (1.0-4.8); ABS Monocytes 1.1 10^3/ul (0-0.8); ABS Neutrophils 1.6 10^3/ul (1.5-7.7); Eosinophil % 0.7 %; Hematocrit 28 % (42-52); Hemoglobin 9.4 g/dL (14.0-18.0); Lymphocyte % 24.9 %; Mean Corpuscular HGB Conc 34 g/dL (31-36); Mean Corpuscular Hemoglobin 29 pg (27-31); Mean Corpuscular Volume 85 fL (80-94); Mean Platelet Volume 7.6 fL (7.4-10.4); Platelet Count 150 10^3/uL (150-450); Red Blood Count 3.25 10^6 /uL (4.18-5.48); Red Cell Distribution Width 17 % (10-15); White Blood Count 3.7 10^3/uL (3.5-10.8)
[2021-08-26 06:19] LABS: Calcium 7.5 mg/dL (8.6-10.3); Magnesium 1.7 mg/dL (1.9-2.7); Potassium 3.4 mmol/L (3.5-5.0); eGFR CKD-EPI 96.9 (>60)
[2021-08-26] MEDS ORDERED: Magnesium Sulfate IV 3 GM in NS 0.9% 100 ml BAG 100 ML IVPB ONE (07:09)
[2021-08-26] MEDS: COLESEVELAM 625 MG PO SCH ×3 (09:43→18:27)
[2021-08-26] MEDS ORDERED: Potassium Chlor 20 meq TAB.ER PO ONE (10:46)
[2021-08-26] MEDS: Vancomycin 1000 MG in NS 0.9% 250 ML IVPB SCH ×2 (12:16→21:23)
[2021-08-26] MEDS: Enoxaparin 40 MG/0.4 ML SYR SUBCUT SCH (20:57)
[2021-08-26] MEDS: CMCS: Sildenafil (PULMONARY)20mg(NF) PO SCH (20:57)
[2021-08-27] MEDS: metroNIDAZOLE IV 500 MG/100ML 500 MG/100 ML BAG IVPB SCH ×4 (00:19→14:44)
[2021-08-27] MEDS: Cefepime 2 GM in Dextrose 2 GM/50 ML BAG IV SCH ×2 (02:08→12:06)
[2021-08-27 06:06] LABS: ABS Lymphocytes 0.8 10^3/ul (1.0-4.8); ABS Monocytes 0.9 10^3/ul (0-0.8); Eosinophil % 1.7 %; Hematocrit 27 % (42-52); Hemoglobin 9.1 g/dL (14.0-18.0); Lymphocyte % 28.8 %; Mean Corpuscular HGB Conc 34 g/dL (31-36); Mean Corpuscular Hemoglobin 29 pg (27-31); Mean Corpuscular Volume 85 fL (80-94); Mean Platelet Volume 7.5 fL (7.4-10.4); Nucleated Red Blood Cells % 0.1; Platelet Count 142 10^3/uL (150-450); Red Blood Count 3.17 10^6 /uL (4.18-5.48); Red Cell Distribution Width 17 % (10-15); White Blood Count 2.9 10^3/uL (3.5-10.8)
[2021-08-27 06:26] LABS: Calcium 7.5 mg/dL (8.6-10.3); Potassium 3.4 mmol/L (3.5-5.0)
[2021-08-27] MEDS ORDERED: Potassium Chlor 20 meq TAB.ER PO ONE (06:51)
[2021-08-27] MEDS ORDERED: Vancomycin Trough Check NOTE FOLLOW UP ONE (08:30)
[2021-08-27 09:25] LABS: eGFR CKD-EPI 93.2 (>60)
[2021-08-27 09:33] LABS: Vancomycin Trough 16.6 mcg/mL
[2021-08-27] MEDS: COLESEVELAM 625 MG PO SCH ×3 (09:51→15:59)
[2021-08-27] MEDS: Vancomycin 1000 MG in NS 0.9% 250 ML IVPB SCH ×2 (13:10→20:20)
[2021-08-27] MEDS: Enoxaparin 40 MG/0.4 ML SYR SUBCUT SCH (20:18)
[2021-08-27] MEDS: CMCS: Sildenafil (PULMONARY)20mg(NF) PO SCH (20:28)
[2021-08-28] MEDS: Cefepime 2 GM in Dextrose 2 GM/50 ML BAG IV SCH ×2 (00:15→12:34)
[2021-08-28] MEDS: metroNIDAZOLE IV 500 MG/100ML 500 MG/100 ML BAG IVPB SCH ×4 (00:19→23:14)
[2021-08-28 05:56] LABS: Hematocrit 27 % (42-52); Hemoglobin 9.1 g/dL (14.0-18.0); Mean Corpuscular HGB Conc 34 g/dL (31-36); Mean Corpuscular Hemoglobin 29 pg (27-31); Mean Corpuscular Volume 86 fL (80-94); Mean Platelet Volume 8.2 fL (7.4-10.4); Platelet Count 191 10^3/uL (150-450); Red Blood Count 3.15 10^6 /uL (4.18-5.48); Red Cell Distribution Width 17 % (10-15); White Blood Count 2.7 10^3/uL (3.5-10.8)
[2021-08-28 06:00] LABS: ABS Lymphocytes 0.9 10^3/ul (1.0-4.8); ABS Monocytes 0.9 10^3/ul (0-0.8); ABS Neutrophils 0.7 10^3/ul (1.5-7.7); Eosinophil % 1.5 %; Lymphocyte % 34.6 %; Nucleated Red Blood Cells % 0.1
[2021-08-28 06:17] LABS: Anion Gap 2 mmol/L (2-11); CO2 Carbon Dioxide 23 mmol/L (22-32); Calcium 7.4 mg/dL (8.6-10.3); Chloride 109 mmol/L (101-111); Potassium 3.5 mmol/L (3.5-5.0); Sodium 134 mmol/L (135-145)
[2021-08-28 06:22] LABS: Blood Urea Nitrogen 10 mg/dL (6-24); Glucose 89 mg/dL (70-100); eGFR CKD-EPI 93.2 (>60)
[2021-08-28] MEDS: COLESEVELAM 625 MG PO SCH ×3 (08:15→16:19)
[2021-08-28] MEDS: Vancomycin 1000 MG in NS 0.9% 250 ML IVPB SCH ×2 (10:19→20:25)
[2021-08-28 12:33] LABS: Folate 18.78 ng/mL (5.90-24.80)
[2021-08-28 12:34] LABS: Vitamin B12 > 1450 pg/mL (180-914)
[2021-08-28] MEDS: Enoxaparin 40 MG/0.4 ML SYR SUBCUT SCH (20:23)
[2021-08-28] MEDS: CMCS: Sildenafil (PULMONARY)20mg(NF) PO SCH (20:24)
[2021-08-29] MEDS: Cefepime 2 GM in Dextrose 2 GM/50 ML BAG IV SCH ×2 (00:29→11:53)
[2021-08-29 06:32] LABS: Hematocrit 27 % (42-52); Hemoglobin 9.3 g/dL (14.0-18.0); Mean Corpuscular HGB Conc 34 g/dL (31-36); Mean Corpuscular Hemoglobin 29 pg (27-31); Mean Corpuscular Volume 84 fL (80-94); Mean Platelet Volume 7.4 fL (7.4-10.4); Platelet Count 150 10^3/uL (150-450); Red Blood Count 3.21 10^6 /uL (4.18-5.48); Red Cell Distribution Width 17 % (10-15); White Blood Count 5.7 10^3/uL (3.5-10.8)
[2021-08-29] MEDS: metroNIDAZOLE IV 500 MG/100ML 500 MG/100 ML BAG IVPB SCH ×3 (06:50→23:00)
[2021-08-29 06:57] LABS: Calcium 7.7 mg/dL (8.6-10.3); Magnesium 1.6 mg/dL (1.9-2.7); Potassium 2.9 mmol/L (3.5-5.0); eGFR CKD-EPI 94.5 (>60)
[2021-08-29 07:22] LABS: ABS Lymphocytes 0.8 10^3/ul (1.0-4.8); ABS Monocytes 1.4 10^3/ul (0-0.8); ABS Neutrophils 3.4 10^3/ul (1.5-7.7); Eosinophil % 0.8 %; Lymphocyte % 13.8 %; Nucleated Red Blood Cells % 0.1
[2021-08-29 07:24] LABS: Acanthocytes 2+
[2021-08-29] MEDS ORDERED: Magnesium Sulf 4 GM/100 ML IV 4,000 MG/100 ML BAG IVPB ONE (07:56)
[2021-08-29] MEDS: Potassium Chlor 20 meq TAB.ER PO SCH ×2 (08:33→10:31)
[2021-08-29] MEDS: Vancomycin 1000 MG in NS 0.9% 250 ML IVPB SCH ×2 (08:34→20:16)
[2021-08-29] MEDS: COLESEVELAM 625 MG PO SCH ×3 (08:34→17:20)
[2021-08-29] MEDS ORDERED: Potassium Chlor 20 meq TAB.ER PO ONE (17:54)
[2021-08-29] MEDS: CMCS: Sildenafil (PULMONARY)20mg(NF) PO SCH (20:15)
[2021-08-29] MEDS: Enoxaparin 40 MG/0.4 ML SYR SUBCUT SCH (20:16)
[2021-08-30] MEDS: Cefepime 2 GM in Dextrose 2 GM/50 ML BAG IV SCH (00:23)
[2021-08-30 06:43] LABS: Hematocrit 27 % (42-52); Hemoglobin 9.1 g/dL (14.0-18.0); Mean Corpuscular HGB Conc 34 g/dL (31-36); Mean Corpuscular Hemoglobin 29 pg (27-31); Mean Corpuscular Volume 85 fL (80-94); Mean Platelet Volume 7.8 fL (7.4-10.4); Platelet Count 146 10^3/uL (150-450); Red Blood Count 3.18 10^6 /uL (4.18-5.48); Red Cell Distribution Width 17 % (10-15); White Blood Count 4.7 10^3/uL (3.5-10.8)
[2021-08-30 07:00] LABS: Calcium 7.5 mg/dL (8.6-10.3); Magnesium 2.1 mg/dL (1.9-2.7); Potassium 3.7 mmol/L (3.5-5.0)
[2021-08-30] MEDS: Vancomycin 1000 MG in NS 0.9% 250 ML IVPB SCH (08:27)
[2021-08-30] MEDS: COLESEVELAM 625 MG PO SCH ×2 (08:31→11:54)
[2021-08-30 08:44] LABS: Burr Cells 1+
[2021-08-30 09:24] LABS: ABS Eosinophils 0.1 10^3/ul (0-0.6); ABS Lymphocytes 0.8 10^3/ul (1.0-4.8); ABS Monocytes 1.5 10^3/ul (0-0.8); ABS Neutrophils 2.3 10^3/ul (1.5-7.7); Eosinophil % 1.3 %; Lymphocyte % 17.7 %
[2021-08-30] MEDS: metroNIDAZOLE IV 500 MG/100ML 500 MG/100 ML BAG IVPB SCH (10:30)
[2021-08-30 10:36] LABS: C Reactive Protein 9.79 mg/L (<8.01)
[2021-08-30 13:32] VITALS: BP 136/55
[2021-08-30] MEDS ORDERED: Amoxicillin/Clavul 500/125 TAB (Augmentin 500 mg tab) PO SCH (21:00)
[2021-08-31] MEDS ORDERED: Vancomycin Trough Check NOTE FOLLOW UP ONE (08:30)
== END 2021-08-30 14:30 | disposition home or self-care (01) | DRG 872 ==
LOC: ED 15:28 → EDHOLD 18:24 → SUATTDRO 18:24 → MED 21:57 → MEDTELE 08-25 10:05
PROVIDERS: ADMIT Hospitalist; ATTEND Internal Medicine

== ENCOUNTER 2021-10-29 13:47 | Inpatient (IN) ==
[2021-10-29 14:43] LABS: Hematocrit 34 % (42-52); Hemoglobin 11.4 g/dL (14.0-18.0); Mean Corpuscular HGB Conc 33 g/dL (31-36); Mean Corpuscular Hemoglobin 28 pg (27-31); Mean Corpuscular Volume 84 fL (80-94); Mean Platelet Volume 7.2 fL (7.4-10.4); Platelet Count 168 10^3/uL (150-450); Red Blood Count 4.11 10^6 /uL (4.18-5.48); Red Cell Distribution Width 16 % (10-15); White Blood Count 2.8 10^3/uL (3.5-10.8)
[2021-10-29 14:57] LABS: Troponin I 0.02 ng/mL (<0.03)
[2021-10-29 14:59] LABS: Urine Appearance Clear; Urine Bilirubin Negative (Negative); Urine Blood 1+ (Negative); Urine Color Yellow; Urine Glucose Negative (Negative); Urine Ketones Negative (Negative); Urine Nitrite Negative (Negative); Urine Protein Negative (Negative); Urine Specific Gravity 1.013 (1.002-1.030); Urine Urobilinogen Negative (Negative)
[2021-10-29 14:59] LABS: Albumin 3.5 g/dL (3.2-5.2); Albumin/Globulin Ratio 1.9 (1-3); Calcium 8.1 mg/dL (8.6-10.3); Globulin 1.8 g/dL (2-4); Potassium 3.7 mmol/L (3.5-5.0); Total Bilirubin 1.4 mg/dL (0.2-1.0); Total Protein 5.3 g/dL (6.4-8.9); eGFR CKD-EPI 93.2 (>60)
[2021-10-29 15:02] LABS: Urine Bacteria Absent (Absent); Urine Red Blood Cell 2+(6-10/hpf) (Absent); Urine Squamous Epithelial Cell Present (Absent); Urine White Blood Cell Trace(0-5/hpf) (Absent)
[2021-10-29 15:36] LABS: Macrocytosis 1+; Microcytosis 1+
[2021-10-29 15:37] LABS: ABS Lymphocytes 0.6 10^3/ul (1.0-4.8); ABS Monocytes 1.1 10^3/ul (0-0.8); ABS Neutrophils 1.1 10^3/ul (1.5-7.7); Eosinophil % 0.1 %; Lymphocyte % 21.4 %; Nucleated Red Blood Cells % 0.1
[2021-10-29] MEDS ORDERED: Piperacillin/Tazobac ADVAN 3.375 GM in NS 0.9% 100 ml BAG 100 ML IV ONE (16:01)
[2021-10-29] MEDS ORDERED: Vancomycin 1,000 MG in NS 0.9% 250 ml 250 ML IVPB ONE (16:01)
[2021-10-29] MEDS ORDERED: Vancomycin 1,000 MG BAG/ADDV ONE (16:32)
[2021-10-29] MEDS ORDERED: Piperacillin/Tazobac 3.375 GM BAG ONE (16:32)
[2021-10-29 17:20] LABS: Rapid COVID-19 Molecular Undetected (Undetected)
[2021-10-29 17:30] LABS: Influenza A Molecular Negative (Negative); Influenza B Molecular Negative (Negative)
[2021-10-29] MEDS: NS 0.9% 1000 ml BAG 1,000 ML IV SCH (17:35)
[2021-10-29 17:59] LABS: C Reactive Protein 16.82 mg/L (<8.01)
[2021-10-29] MEDS ORDERED: Vancomycin per Pharmacy 1 EA NOTE FOLLOW UP SCH (18:00)
[2021-10-29] MEDS: Enoxaparin 40 MG/0.4 ML SYR SUBCUT SCH (23:56)
[2021-10-29] MEDS: Cefepime 2 GM in Dextrose 2 GM/50 ML BAG IV SCH (23:57)
[2021-10-30] MEDS: Vancomycin 750 MG in NS 0.9% 250 ML IVPB SCH ×2 (04:59→17:27)
[2021-10-30 06:18] LABS: Hematocrit 30 % (42-52); Hemoglobin 9.9 g/dL (14.0-18.0); Mean Corpuscular HGB Conc 33 g/dL (31-36); Mean Corpuscular Hemoglobin 28 pg (27-31); Mean Corpuscular Volume 83 fL (80-94); Mean Platelet Volume 7.3 fL (7.4-10.4); Platelet Count 131 10^3/uL (150-450); Red Blood Count 3.59 10^6 /uL (4.18-5.48); Red Cell Distribution Width 15 % (10-15); White Blood Count 2.4 10^3/uL (3.5-10.8)
[2021-10-30 06:37] LABS: Calcium 7.8 mg/dL (8.6-10.3); eGFR CKD-EPI 90.8 (>60)
[2021-10-30 07:25] LABS: ABS Lymphocytes 0.6 10^3/ul (1.0-4.8); ABS Monocytes 0.8 10^3/ul (0-0.8); ABS Neutrophils 0.9 10^3/ul (1.5-7.7); Eosinophil % 0.1 %; Lymphocyte % 24.5 %; RBC Morphology Normal (Normal)
[2021-10-30] MEDS: Cefepime 2 GM in Dextrose 2 GM/50 ML BAG IV SCH (10:43)
[2021-10-30] MEDS: SILDENAFIL 20 MG PO SCH (20:59)
[2021-10-30] MEDS: Enoxaparin 40 MG/0.4 ML SYR SUBCUT SCH (21:00)
[2021-10-30] MEDS: Cefepime 1 GM in Dextrose 1 GM/50 ML BAG IV SCH (21:57)
[2021-10-30] MEDS: NS 0.9% 1000 ml BAG 1,000 ML IV SCH (23:36)
[2021-10-31] MEDS ORDERED: Vancomycin Trough Check NOTE FOLLOW UP ONE (05:30)
[2021-10-31 05:59] LABS: eGFR CKD-EPI 90.1 (>60)
[2021-10-31 06:25] LABS: Vancomycin Trough 9.2 mcg/mL
[2021-10-31] MEDS: Vancomycin 750 MG in NS 0.9% 250 ML IVPB SCH (07:08)
[2021-10-31 07:58] LABS: Hematocrit 27 % (42-52); Hemoglobin 9.1 g/dL (14.0-18.0); Mean Corpuscular HGB Conc 34 g/dL (31-36); Mean Corpuscular Hemoglobin 28 pg (27-31); Mean Corpuscular Volume 82 fL (80-94); Mean Platelet Volume 7.7 fL (7.4-10.4); Platelet Count 124 10^3/uL (150-450); Red Blood Count 3.27 10^6 /uL (4.18-5.48); Red Cell Distribution Width 15 % (10-15); White Blood Count 1.7 10^3/uL (3.5-10.8)
[2021-10-31 08:45] LABS: ABS Lymphocytes 0.6 10^3/ul (1.0-4.8); ABS Monocytes 0.8 10^3/ul (0-0.8); Eosinophil % 0.6 %; Lymphocyte % 32.1 %; Nucleated Red Blood Cells % 0.2; RBC Morphology Normal (Normal)
[2021-10-31 09:50] LABS: ABS Neutrophils 0.3 10^3/ul (1.5-7.7)
[2021-10-31] MEDS: Cefepime 1 GM in Dextrose 1 GM/50 ML BAG IV SCH ×2 (11:22→22:27)
[2021-10-31] MEDS ORDERED: Vancomycin 1000 MG in NS 0.9% 250 ML IVPB SCH (18:00)
[2021-10-31] MEDS: SILDENAFIL 20 MG PO SCH (20:14)
[2021-10-31] MEDS: Enoxaparin 40 MG/0.4 ML SYR SUBCUT SCH (20:17)
[2021-10-31] MEDS: NS 0.9% 1000 ml BAG 1,000 ML IV SCH (20:23)
[2021-10-31] MEDS ORDERED: Gabapentin 600 mg TAB (NF) PO SCH (21:00)
[2021-11-01 05:54] LABS: Hematocrit 29 % (42-52); Hemoglobin 9.6 g/dL (14.0-18.0); Mean Corpuscular HGB Conc 33 g/dL (31-36); Mean Corpuscular Hemoglobin 27 pg (27-31); Mean Corpuscular Volume 82 fL (80-94); Platelet Count 126 10^3/uL (150-450); Red Blood Count 3.51 10^6 /uL (4.18-5.48); Red Cell Distribution Width 15 % (10-15); White Blood Count 1.4 10^3/uL (3.5-10.8)
[2021-11-01 05:59] LABS: ABS Lymphocytes 0.5 10^3/ul (1.0-4.8); ABS Monocytes 0.7 10^3/ul (0-0.8); ABS Neutrophils 0.1 10^3/ul (1.5-7.7); Eosinophil % 1.7 %; Lymphocyte % 37.9 %; Nucleated Red Blood Cells % 0.2
[2021-11-01] MEDS: Cefepime 1 GM in Dextrose 1 GM/50 ML BAG IV SCH ×2 (10:50→23:08)
[2021-11-01] MEDS: NS 0.9% 1000 ml BAG 1,000 ML IV SCH (10:50)
[2021-11-01] MEDS: Enoxaparin 40 MG/0.4 ML SYR SUBCUT SCH (20:04)
[2021-11-01] MEDS: SILDENAFIL 20 MG PO SCH (20:04)
[2021-11-01] MEDS: Lidocaine PATCH 5% PATCH TRANSDERM SCH (23:58)
[2021-11-02] MEDS: NS 0.9% 1000 ml BAG 1,000 ML IV SCH (00:54)
[2021-11-02] MEDS ORDERED: Vancomycin Trough Check NOTE FOLLOW UP ONE (06:00)
[2021-11-02 06:18] LABS: Hematocrit 26 % (42-52); Mean Corpuscular HGB Conc 34 g/dL (31-36); Mean Corpuscular Hemoglobin 28 pg (27-31); Mean Corpuscular Volume 81 fL (80-94); Mean Platelet Volume 7.3 fL (7.4-10.4); Platelet Count 113 10^3/uL (150-450); Red Blood Count 3.22 10^6 /uL (4.18-5.48); Red Cell Distribution Width 15 % (10-15); White Blood Count 2.9 10^3/uL (3.5-10.8)
[2021-11-02 06:30] LABS: Calcium 7.4 mg/dL (8.6-10.3); Potassium 2.9 mmol/L (3.5-5.0)
[2021-11-02 06:36] LABS: eGFR CKD-EPI 96.9 (>60)
[2021-11-02 07:26] LABS: RBC Morphology Normal (Normal)
[2021-11-02 07:28] LABS: ABS Lymphocytes 1.2 10^3/ul (1.0-4.8)
[2021-11-02] MEDS ORDERED: Lidocaine Patch REMOVE NOTE PATCH OFF SCH (08:45)
[2021-11-02] MEDS: Lidocaine PATCH 5% PATCH TRANSDERM SCH (09:49)
[2021-11-02] MEDS: KCL 20 MEQ/100 ML IVPREMIX 20 MEQ/100 ML BAG IV SCH ×3 (10:06→14:53)
[2021-11-02 10:42] LABS: Magnesium 1.5 mg/dL (1.9-2.7)
[2021-11-02] MEDS: Cefepime 1 GM in Dextrose 1 GM/50 ML BAG IV SCH (11:39)
[2021-11-02 14:21] LABS: Magnesium 1.5 mg/dL (1.9-2.7); Potassium 3.2 mmol/L (3.5-5.0)
[2021-11-02] MEDS ORDERED: Potassium Chloride LIQUID 20 MEQ/15 ML LIQUID PO ONE (15:04)
[2021-11-02] MEDS ORDERED: Magnesium Sulfate 2 gm BAG 2 GM/50 ML BAG IVPB ONE (15:04)
[2021-11-02 16:06] VITALS: BP 146/70
== END 2021-11-02 17:40 | disposition home or self-care (01) | DRG 809 ==
LOC: ED 13:47 → EDHOLD 13:47 → MED 21:43 → MEDTELE 11-01 05:10
PROVIDERS: ADMIT Hospitalist; ATTEND Hospitalist

== ENCOUNTER 2021-11-15 17:06 | Observation (INO) ==
[2021-11-15 19:42] LABS: ABS Monocytes 1.1 10^3/ul (0-0.8); ABS Neutrophils 2.5 10^3/ul (1.5-7.7); Hematocrit 28 % (42-52); Hemoglobin 9.4 g/dL (14.0-18.0); Mean Corpuscular HGB Conc 34 g/dL (31-36); Mean Corpuscular Hemoglobin 27 pg (27-31); Mean Corpuscular Volume 79 fL (80-94); Mean Platelet Volume 6.9 fL (7.4-10.4); Platelet Count 177 10^3/uL (150-450); Red Blood Count 3.54 10^6 /uL (4.18-5.48); Red Cell Distribution Width 15 % (10-15); White Blood Count 4.6 10^3/uL (3.5-10.8)
[2021-11-15 19:59] LABS: Anion Gap 4 mmol/L (2-11); Blood Urea Nitrogen 13 mg/dL (6-24); CO2 Carbon Dioxide 21 mmol/L (22-32); Calcium 7.7 mg/dL (8.6-10.3); Chloride 107 mmol/L (101-111); Glucose 119 mg/dL (70-100); Potassium 3.9 mmol/L (3.5-5.0); Sodium 132 mmol/L (135-145); Total Protein 4.6 g/dL (6.4-8.9); eGFR CKD-EPI 94.5 (>60)
[2021-11-15 20:00] LABS: ALT 12 U/L (7-52); AST 29 U/L (13-39); Albumin/Globulin Ratio 1.9 (1-3); Alkaline Phosphatase 67 U/L (35-149); C Reactive Protein 5.68 mg/L (<8.01); Creatine Kinase 24 U/L (10-223); Globulin 1.6 g/dL (2-4)
[2021-11-15 20:03] LABS: Troponin I 0.27 ng/mL (<0.03)
[2021-11-15 20:08] LABS: Activated Partial Thrombo Time 27.5 seconds (26.0-38.0); INR 1.14 (0.86-1.15)
[2021-11-15 20:39] LABS: Urine Appearance Clear; Urine Bilirubin Negative (Negative); Urine Blood 1+ (Negative); Urine Color Yellow; Urine Glucose Negative (Negative); Urine Ketones Negative (Negative); Urine Nitrite Negative (Negative); Urine Protein Negative (Negative); Urine Specific Gravity 1.016 (1.002-1.030); Urine Urobilinogen Negative (Negative)
[2021-11-15 20:51] LABS: Urine Bacteria Absent (Absent); Urine Red Blood Cell Trace(0-2/hpf) (Absent); Urine White Blood Cell Trace(0-5/hpf) (Absent)
[2021-11-15 23:11] LABS: Troponin I 0.23 ng/mL (<0.03)
[2021-11-15] MEDS ORDERED: Lactated Ringers 1000 ml BAG 1,000 ML IV ONE (23:37)
[2021-11-16] MEDS ORDERED: Atropine 0.1 MG/ML 10 ml SYR (1 mg) IV PUSH ONE (00:54)
[2021-11-16 02:39] LABS: Potassium 3.2 mmol/L (3.5-5.0); eGFR CKD-EPI 108.1 (>60)
[2021-11-16 03:00] LABS: Calcium 5.9 mg/dL (8.6-10.3)
[2021-11-16] MEDS ORDERED: Calcium (OSCAL) 500 mg TAB PO ONE (03:03)
[2021-11-16 03:49] LABS: Magnesium 1.6 mg/dL (1.9-2.7); Phosphorus 3.4 mg/dL (2.5-5.0)
[2021-11-16] MEDS ORDERED: Magnesium Sulfate IV 3 GM in NS 0.9% 100 ml BAG 100 ML IVPB ONE (04:23)
[2021-11-16] MEDS ORDERED: Calcium Gluconate 2 GM in NS 0.9% 100 ml BAG 100 ML IV ONE (04:24)
[2021-11-16] MEDS ORDERED: Al Hydrox/Mg Hydrox/Simet LIQ 30 ML UDC PO PRN (04:30)
[2021-11-16] MEDS: cefTRIAXone 1 gm/50 mL NS BAG 1 GM/50 ML BAG IVPB SCH (04:45)
[2021-11-16] MEDS ORDERED: Magnesium Sulfate 2 GM IV (Premix) IVPB ONE (05:00)
[2021-11-16] MEDS ORDERED: KCL 20 MEQ/100 ML IVPREMIX 20 MEQ/100 ML BAG IV SCH (05:00)
[2021-11-16] MEDS ORDERED: Enoxaparin 40 MG/0.4 ML SYR SUBCUT SCH (05:00)
[2021-11-16 06:25] LABS: Calcium 8.6 mg/dL (8.6-10.3); eGFR CKD-EPI 96.4 (>60)
[2021-11-16] MEDS: Magnesium Sulf 1 GM/100ML BAG IV ONE ×2 (06:27→07:11)
[2021-11-16] MEDS ORDERED: Perflutren Lipid Microsphere 3 ML VIAL ONE (09:41)
[2021-11-16] MEDS: Colesevelam 625 mg TAB (NF) PO SCH ×2 (12:50→18:29)
[2021-11-16] MEDS: Potassium Chlor 10 meq TAB PO SCH (17:20)
[2021-11-16] MEDS: Enoxaparin 40 MG/0.4 ML SYR SUBCUT SCH (17:27)
[2021-11-16] MEDS: KCL 20 MEQ/100 ML IVPREMIX 20 MEQ/100 ML BAG IV SCH ×2 (19:45→23:13)
[2021-11-16] MEDS ORDERED: CMCS:Sildenafil (PULMONARY)20mg(NF) PO SCH (21:00)
[2021-11-17 05:49] LABS: Hematocrit 29 % (42-52); Hemoglobin 9.5 g/dL (14.0-18.0); Mean Corpuscular HGB Conc 33 g/dL (31-36); Mean Corpuscular Hemoglobin 26 pg (27-31); Mean Corpuscular Volume 80 fL (80-94); Mean Platelet Volume 7.2 fL (7.4-10.4); Platelet Count 161 10^3/uL (150-450); Red Blood Count 3.59 10^6 /uL (4.18-5.48); Red Cell Distribution Width 16 % (10-15); White Blood Count 2.2 10^3/uL (3.5-10.8)
[2021-11-17 06:01] LABS: C Reactive Protein 12.46 mg/L (<8.01); Calcium 7.9 mg/dL (8.6-10.3); Magnesium 1.8 mg/dL (1.9-2.7); Potassium 4.6 mmol/L (3.5-5.0); eGFR CKD-EPI 94.5 (>60)
[2021-11-17] MEDS: Enoxaparin 40 MG/0.4 ML SYR SUBCUT SCH (11:14)
[2021-11-17] MEDS: Potassium Chlor 10 meq TAB PO SCH (11:24)
[2021-11-17] MEDS: cefTRIAXone 1 gm/50 mL NS BAG 1 GM/50 ML BAG IVPB SCH (12:36)
[2021-11-17] MEDS: Colesevelam 625 mg TAB (NF) PO SCH (12:37)
[2021-11-17 13:38] VITALS: BP 154/61
[2021-11-17] MEDS ORDERED: COVID-19 VACCINE, TRIS(PFIZER)/PF 30 MCG/0.3 ML IM ONE (15:00)
== END 2021-11-17 15:41 | disposition home or self-care (01) ==
LOC: ED 17:06 → EDHOLD 17:06 → SUATTDRO 11-16 04:30 → EDHOLD 11-16 06:17 → MEDTELE 11-16 08:38
PROVIDERS: ADMIT Internal Medicine; ATTEND Hospitalist